=== PATIENT | female | born 1965 | race American Indian/Alaskan Native ===

== ENCOUNTER 2021-02-14 20:16 | Inpatient (IN) | payer BC ==
--- NOTE | 2021-02-14 20:22 | Emergency Department Report ---
ED General Adult HPI - General Stated complaint: CODE STEMI Time Seen by Provider: 02/14/21 20:21 - History of Present Illness Initial comments: Patient presented by EMS as both a code stroke and code STEMI. History is somewhat complicated. She had been last seen by family normal at 10 PM. Reportedly, they got up and went to work this morning. They allegedly checked on her and she was fine. She was not out of bed however. When they came home, she was found to have a left-sided weakness and dysarthria. She had left facial droop. This was allegedly at 11 AM. EMS got called [facility] to transport the patient here. During transport, they found her to have STEMI on EKG. She was not having any chest pain.Upon arrival, she does state that she has had a cough and congestion and has had "the flu" for 2 weeks. She did not get coronavirus testing done. She has had no known exposure to Covid however - Related Data Home Medications Medication Instructions Recorded Confirmed Last Taken Ferrous Gluconate [Fergon] 325 mg PO BID 10/21/14 10/24/14 10/24/14 325 mg metroNIDAZOLE/NS 500 MG/100 ML 500 mg PO BID 10/24/14 10/24/14 1 Day Ago ~10/23/14 Previous Rx's Medication Instructions Recorded Last Taken Type Naproxen Sodium (Nf) [Anaprox Ds 550 mg PO BID PRN #30 tablet 10/25/14 Unknown Rx (Nf)] Docusate Sodium [Colace] 100 mg PO DAILY PRN #30 capsule 10/29/14 Unknown Rx Ferrous Sulfate [Feosol 325 MG tab] 325 mg PO BID #90 tablet 10/29/14 Unknown Rx Ibuprofen [Motrin 800 MG tab] 800 mg PO TID PRN #30 tablet 10/29/14 Unknown Rx oxyCODONE /ACETAMINOPHEN [Percocet 1 - 2 tab PO Q4HR PRN #30 tablet 10/29/14 Unknown Rx 5/325 mg] Allergies Allergy/AdvReac Type Severity Reaction Status Date / Time No Known Allergies Allergy Unverified 10/16/13 19:26 ED Review of Systems ROS: Stated complaint: CODE STEMI Other details as noted in HPI Comment: All other systems reviewed and negative Constitutional: denies: fever Eyes: denies: eye pain ENT: denies: ear pain Respiratory: see HPI, cough Cardiovascular: as per HPI. denies: chest pain Gastrointestinal: denies: abdominal pain Genitourinary: denies: dysuria Musculoskeletal: denies: back pain Skin: denies: rash Neurological: as per HPI. denies: headache Hematological/Lymphatic: denies: easy bruising ED Past Medical Hx - Past Medical History Hx Hypertension: Yes (Cardiac clearance on chart) Hx Congestive Heart Failure: No Hx Diabetes: No Hx Liver Disease: No Hx Renal Disease: No Hx Asthma: No Hx COPD: No Additional medical history: uterine fibroids, Vaginal delivery x 4, 2 miscarriages - Family History Family history: hypertension - Social History Smoking Status: Never Smoker - Medications Home Medications: Home Medications Medication Instructions Recorded Confirmed Last Taken Type Ferrous Gluconate [Fergon] 325 mg PO BID 10/21/14 10/24/14 10/24/14 History 325 mg metroNIDAZOLE/NS 500 MG/100 ML 500 mg PO BID 10/24/14 10/24/14 1 Day Ago History ~10/23/14 Naproxen Sodium (Nf) [Anaprox Ds 550 mg PO BID PRN #30 tablet 10/25/14 Unknown Rx (Nf)] Docusate Sodium [Colace] 100 mg PO DAILY PRN #30 capsule 10/29/14 Unknown Rx Ferrous Sulfate [Feosol 325 MG tab] 325 mg PO BID #90 tablet 10/29/14 Unknown Rx Ibuprofen [Motrin 800 MG tab] 800 mg PO TID PRN #30 tablet 10/29/14 Unknown Rx oxyCODONE /ACETAMINOPHEN [Percocet 1 - 2 tab PO Q4HR PRN #30 tablet 10/29/14 Unknown Rx 5/325 mg] ED Physical Exam - General Limitations: No Limitations, Other ( pulse ox was normal based on EMS presentation.) General appearance: alert, in distress ( Mild) - Head Head exam: Present: atraumatic, other ( left facial droop) - Eye Eye exam: Present: normal appearance, EOMI. Absent: scleral icterus - ENT ENT exam: Present: normal exam, normal orophraynx, mucous membranes moist - Neck Neck exam: Present: normal inspection. Absent: meningismus - Respiratory Respiratory exam: Present: normal lung sounds bilaterally. Absent: respiratory distress - Cardiovascular Cardiovascular Exam: Present: regular rate, normal rhythm - GI/Abdominal GI/Abdominal exam: Present: soft, other ( obese). Absent: tenderness - Extremities Exam Extremities exam: Present: normal capillary refill. Absent: pedal edema - Back Exam Back exam: Absent: CVA tenderness (R), CVA tenderness (L) - Neurological Exam Neurological exam: Present: alert, oriented X3, other ( patient has left facial droop and left hemiparesis. There is mild dysarthria noted.) - Psychiatric Psychiatric exam: Present: normal affect, normal mood - Skin Skin exam: Present: warm, dry ED Course - Reevaluation(s) Reevaluation #1: 02/14/21 20:22 EMS met. Reevaluation #2: 02/14/21 20:31 Case was discussed with Dr. Shahid, cardiology. He requested CT evaluation of the brain prior to cath as this could also be a stroke or intracranial bleed creating problems and EKG changes. Case was discussed with neurology as a stroke alert. It was determined that the patient certainly would not meet criteria for TPA, but if she has a large vessel occlusion, that may warrant intervention. CT and CT angios have been ordered. Obviously, the complex nature of the EKG findings and neurologic findings will certainly alter door to intervention for both stroke and STEMI. Reevaluation #3: 02/14/21 21:21 Case ED Medical Decision Making - Lab Data Result diagrams: 02/14/21 20:21 02/14/21 20:21 - EKG Data -: EKG Interpreted by [facility] EKG shows normal: sinus rhythm, axis, intervals Rate: tachycardia - EKG Data Interpretation: acute UT 02/14/21 21:[address] segment elevation in 2, 3, aVF, V3 through V6. There is ST depression and 1 and aVL as well as V2. There is no ectopy noted. - Radiology Data Radiology results: report reviewed - Medical Decision Making Patient presented as both a cardiac and stroke alert. Cardiology was notified about the STEMI. Neurology was notified about the stroke. As the patient is outside of any kind of thrombolytic window for stroke, there will be no albert cation for TPA. There was no evidence of LVO based on CT as reported by the neurologist. Patient was taken urgently to the Senior Formulation Scientist. Hospitalist was notified who agrees to admit. Of note, patient did report a prodromal symptom with URI symptoms. She very well could have coronavirus. Critical Care Time: Yes Critical care attestation.: If time is entered above; I have spent that time in minutes in the direct care of this critically ill patient, excluding procedure time. critical care time is 45 minutes exclusive of all procedures. ED Disposition Clinical Impression: STEMI (ST elevation myocardial infarction), Acute right MCA stroke, Acute URI, Hyperglycemia Disposition: 09 ADMITTED INPATIENT Is pt being admited?: Yes Does the pt Need Aspirin: No Condition: Stable
[2021-02-14 20:31] LABS: Hematocrit 43.3 % (30.3-42.9); Hemoglobin 14.2 gm/dl (10.1-14.3); Mean Corpuscular HGB Conc 33 % (30-34); Mean Corpuscular Volume 78 fl (79-97); Platelet Count 214 K/mm3 (140-440); Red Blood Count 5.55 M/mm3 (3.65-5.03); Red Cell Distribution Width 16.3 % (13.2-15.2)
[2021-02-14 20:42] LABS: INR 1.3 (0.87-1.13); Partial Thromboplastin Time 25.3 Sec. (24.2-36.6)
--- NOTE | 2021-02-14 20:43 | XRay Report ---
CHEST 1 VIEW 02/14/2021 7:36 PM INDICATION / CLINICAL INFORMATION: stemi. COMPARISON: None available. FINDINGS: SUPPORT DEVICES: None. HEART / MEDIASTINUM: No significant abnormality. LUNGS / PLEURA: There are multiple scattered peripheral airspace opacities. No pneumothorax. ADDITIONAL FINDINGS: No significant additional findings. IMPRESSION: 1. Multiple scattered peripheral airspace opacities which can be seen with Covid pneumonia. Signer Name: Clifford Norton DO Signed: 02/14/2021 8:39 PM Workstation Name: [id number] [id number]
[2021-02-14 20:44] LABS: Calcium 9.7 mg/dL (8.4-10.2)
[2021-02-14] MEDS ORDERED: VERAPAMIL 5 MG/2 ML INJ ONE (20:50)
[2021-02-14] MEDS ORDERED: HEPARIN/NS 5000 UNIT/500ML 1,000 ML IR ONE (20:50)
[2021-02-14] MEDS ORDERED: fentaNYL 100 MCG/2 ML INJ ONE (20:50)
[2021-02-14] MEDS ORDERED: MIDAZOLAM 2 MG/2 ML INJ ONE (20:50)
[2021-02-14] MEDS ORDERED: LIDOCAINE (2%) 20 MG/1 ML VIAL 20 ML MDV INFILTRATI ONE (20:51)
[2021-02-14] MEDS ORDERED: NITROGLYCERIN SYRINGE 3 ML ONE (20:51)
--- NOTE | 2021-02-14 20:57 | Consultation ---
History of Present Illness History of present illness: [facility] Consult Note # Demographics Consult Type: Acute Stroke Level 2 (4.5-24 hrs) Patient Location: Emergency Room First Name: Fabiana Last Name: Daniela Date of : 1965 Age: 55 Gender: Female Facility: [facility] Time of Initial Page ( Time): 02/14/2021, 20:23 Time of Return Call ( Time): 02/14/2021, 20:24 # HPI History: 55 year-old female presents with left-sided weakness. She was last known normal this morning when her left home for work. She was later found with these symptoms around 11 AM. # Scores Time of exam and NIHSS ( Time): 02/14/2021, 20:47 Level of Consciousness 1a: [0] = Alert; keenly responsive LOC Questions 1b: [0] = Answers both questions correctly LOC Commands 1c: [0] = Performs both tasks correctly Best Gaze 2: [0] = Normal Visual 3: [0] = No visual loss Facial Palsy 4: [2] = Partial paralysis Motor Arm Left 5a: [0] = No drift Motor Arm Right 5b: [3] = No effort against gravity Motor Leg Left 6a: [0] = No drift Motor Leg Right 6b: [3] = No effort against gravity Limb Ataxia 7: [0] = Absent Sensory 8: [0] = Normal Best Language 9: [0] = No aphasia Dysarthria 10: [1] = [id number] dysarthria Extinction and Inattention 11: [0] = No abnormality NIHSS Total: 9 # Exam Vitals: vital signs reviewed # Data Head CT: subacute ischemic stroke CTA Head: no large vessel occlusion preliminarily reviewed by me, please refer to radiology read for official reading # Assessment Impression: Ischemic Stroke (Subacute) # Plan Thrombolytic/Intervention: NOT IV Thrombolysis or IA Intervention candidate Thrombolytic Exclusion: > 4.5 hours Intraarterial Exclusion: no large vessel occlusion (LVO) unfavorable imaging/hypodensity Labs: hemoglobin A1c lipid panel Imaging: (urgency: routine): MRI Brain without contrast Diagnostic Test: echo with bubble study Therapy/Evaluation: NPO until swallow evaluation PT/OT evaluation speech/swallow consultation Medication: aspirin 325 mg daily start statin with goal of LDL < 70 Other: permissive hypertension telemetry monitoring I have discussed my recommendations with the referring provider Disposition: admit Medications and Allergies Allergies Allergy/AdvReac Type Severity Reaction Status Date / Time No Known Allergies Allergy Unverified 10/16/13 19:26 Home Medications Medication Instructions Recorded Confirmed Last Taken Type Ferrous Gluconate [Fergon] 325 mg PO BID 10/21/14 10/24/14 10/24/14 History 325 mg metroNIDAZOLE/NS 500 MG/100 ML 500 mg PO BID 10/24/14 10/24/14 1 Day Ago History ~10/23/14 Naproxen Sodium (Nf) [Anaprox Ds 550 mg PO BID PRN #30 tablet 10/25/14 Unknown Rx (Nf)] Docusate Sodium [Colace] 100 mg PO DAILY PRN #30 capsule 10/29/14 Unknown Rx Ferrous Sulfate [Feosol 325 MG tab] 325 mg PO BID #90 tablet 10/29/14 Unknown Rx Ibuprofen [Motrin 800 MG tab] 800 mg PO TID PRN #30 tablet 10/29/14 Unknown Rx oxyCODONE /ACETAMINOPHEN [Percocet 1 - 2 tab PO Q4HR PRN #30 tablet 10/29/14 Unknown Rx 5/325 mg] Results - Laboratory Findings CBC and BMP: 02/14/21 20:21 02/14/21 20:21 Abnormal Lab Findings: Abnormal Labs 02/14/21 02/14/21 02/14/21 20:21 20:21 20:21 WBC 15.6 H RBC 5.55 H Hct 43.3 H MCV 78 L MCH 26 L RDW 16.3 H PT 16.7 H INR 1.30 H Sodium 131 L Potassium 5.1 H Chloride 88.4 L Carbon Dioxide 20 L BUN 34 H Creatinine 1.5 H Glucose 574 H* Troponin T 0.882 H*
[2021-02-14] MEDS ORDERED: SODIUM CHLORIDE 0.9% 1000 ML 1,000 ML ONE (20:58)
[2021-02-14 21:03] LABS: Chol/HDL Ratio 8.65 %; Thrombin Time 17.2 Sec. (15.1-19.6)
--- NOTE | 2021-02-14 21:04 | Cat Scan Report ---
CT head/brain wo con INDICATION / CLINICAL INFORMATION: 55 years Female; Stroke symptoms. TECHNIQUE: Routine CT head without contrast. All CT scans at this location are performed using CT dos e reduction for ALARA by means of automated exposure control. COMPARISON: None. FINDINGS: BRAIN / INTRACRANIAL CONTENTS: The motion degrades the image quality at. However, there is decreased attenuation along the posterior right frontal lobe extending along the subcortical region compatible with ischemic changes likely chronic though correlation would be needed given the history at. There i s otherwise mild cerebral white matter disease. There is no clear CT evidence of acute intracranial h emorrhage or significant mass effect. The ventricular system is within normal limits in size and conf iguration. ORBITS: No significant abnormality of visualized orbits. SINUSES / MASTOIDS: There is minimal opacification along the posterior left sphenoid sinus. CRANIOCERVICAL JUNCTION: No significant abnormality. ADDITIONAL FINDINGS: None. IMPRESSION: 1. The study is limited by motion. However, there is microvascular angiopathy including decreased att enuation along the posterior right frontal subcortical region as detailed above. 2. There is no clear CT evidence of acute intracranial hemorrhage. Signer Name: Mundo Ohara MD Signed: 02/14/2021 8:59 PM Workstation Name: [id number]
[2021-02-14] MEDS: HEPARIN 10,000 UNITS/10 ML VIAL ONE ×2 (21:07→21:21)
--- NOTE | 2021-02-14 21:12 | Cat Scan Report ---
CT angio head INDICATION / CLINICAL INFORMATION: 55 years Female; stroke sx. TECHNIQUE: Thin cut axial images obtained through the head during IV bolus contrast administration. S agittal, coronal, and 3 plane MIP reconstructions performed by the technologist. NASCET type criteria used evaluate stenoses. Automated exposure control utilized for radiation reduction purposes. COMPARISON: None available. FINDINGS: INTERNAL CAROTID ARTERIES: The motion and beam hardening degrade the image quality at. However, there is no clear CTA evidence of significant focal stenosis involving distal internal carotid arteries by NASCET criteria. VERTEBROBASILAR SYSTEM: The vertebrobasilar system also appears to demonstrate appropriate caliber wi thout significant focal stenosis at. CEREBRAL ARTERIES: There is area of decreased attenuation along the posterior right frontal region ex tending to the subcortical white matter. This finding would be a most consistent with infarcts of ind eterminate age and correlation would be needed given the history of unspecified "stroke symptoms". Th ere is no clear evidence of significant focal stenosis involving more proximal right MCA branches at. The proximal anterior and posterior cerebral arteries also appear to demonstrate appropriate caliber without significant focal stenosis. ANEURYSM: None identified. ADDITIONAL FINDINGS: Remainder of the surrounding soft tissues are grossly normal. IMPRESSION: There is decreased attenuation along the posterior right frontal lobe as detailed above with some [place] of enhancing vessels within this region. However, there is no clear CTA evidence of significant stenosis involving more proximal cerebral branches, particularly the proximal right MCA. Signer Name: Mundo Ohara MD Signed: 02/14/2021 9:07 PM Workstation Name: [id number]
[2021-02-14] MEDS ORDERED: HEPARIN/NS 5000 UNIT/500ML 500 ML IR ONE (21:25)
--- NOTE | 2021-02-14 21:30 | Cat Scan Report ---
CT angio neck INDICATION / CLINICAL INFORMATION: 55 years Female; stroke sx. TECHNIQUE: Thin cut axial images obtained through the head during IV bolus contrast administration. S agittal, coronal, and 3 plane MIP reconstructions performed by the technologist. NASCET type criteria used evaluate stenoses. All CT scans at this location are performed using CT dose reduction for ALAR A by means of automated exposure control. COMPARISON: None available. FINDINGS: CAROTID ARTERIES: The motion and beam hardening significantly degrades the image quality at. However, there appears be mild atherosclerotic calcification involving proximal internal carotid arteries dara aterally without clear CTA evidence of significant stenosis by NASCET to criteria. VERTEBRAL ARTERIES: The visualized vertebral arteries also appear to demonstrate appropriate caliber without significant focal stenosis. ARCH: There is no significant narrowing involving origins of the arch of vessels at. ADDITIONAL FINDINGS: There is scattered groundglass opacification involving the visualized upper lung s which is nonspecific and correlation would be needed. There is mild to moderate heterogeneous promi nence of the left lobe of thyroid gland which is also nonspecific and correlation be needed regarding goiter. There is mild deviation of the trachea towards the right. Follow-up Thyroid ultrasound may b e considered to further characterize this finding. IMPRESSION: The study is limited by motion. However, this mild atherosclerotic calcification involving proximal i nternal carotid arteries bilaterally without significant stenosis by NASCET criteria. The initial study was incomplete resulting in some delay in the dictation of this exam. Signer Name: Mundo Ohara MD Signed: 02/14/2021 9:26 PM Workstation Name: [id number]
[2021-02-14] MEDS ORDERED: ALUM-MAG HYDROXIDE-SIMETHICONE 200-200-20MG/5ML ORAL LIQD 30 ML ONE (21:43)
[2021-02-14] MEDS ORDERED: CLOPIDOGREL 300 MG TAB ONE (21:43)
[2021-02-14 21:53] LABS: Hypochromasia 1+; Platelet Estimate Consistent w Auto; Total Cells Counted 100
[2021-02-14 21:54] LABS: Anisocytosis Few
[2021-02-14] MEDS ORDERED: DEXTROSE 50% IN WATER (25GM) 50 ML SYRINGE IV PRN (21:54)
[2021-02-14] MEDS ORDERED: ACETAMINOPHEN 325 MG TAB PO PRN (21:54)
[2021-02-14] MEDS ORDERED: ALBUTEROL 2.5 MG/3 ML NEBU IH PRN (21:54)
[2021-02-14] MEDS ORDERED: SODIUM CHLORIDE 0.9% 1000 ML 1,000 ML IV SCH (22:00)
[2021-02-14] MEDS ORDERED: SODIUM CHLORIDE 0.45% 1000 ML 1,000 ML IV SCH (22:00)
--- NOTE | 2021-02-14 22:08 | Consultation ---
History of Present Illness Consult date: 02/14/21 Requesting physician: SIDRA ARCOS Consult reason: other (Abnormal EKG) History of present illness: Patient is a very poor historian. Apparently patient had some slurred speech last night. She went to sleep and continued to have worsening symptoms also associated left arm numbness. Family noticed that she was sleeping this morning but did not notice anything unusual. Apparently when they came back at 11 AM they found that she had a facial droop and worsening dysarthria and left-sided weakness. They however still did not seek medical help and waited until this evening when her symptoms got worse. display maker were called and EMT noticed a markedly abnormal EKG suggesting of inferior ST elevation CT. Code STEMI was activated. Patient however reports no chest pain she does report shortness of breath. Apparently has been having flulike symptoms for the past week or so. Unfortunately patient had no family do not believe in vaccination have not vaccinated for Covid. Patient had an emergency CT scan to rule out hemorrhage. CT scan is negative. Patient was taken to the Chemical Tester and noted to have thrombus of the mid distal right coronary artery. She is status post PCI of the RCA and is doing better. She is being admitted to the ICU for further work-up. Past History Past Medical History: diabetes Past Surgical History: No surgical history Social history: no significant social history Family history: no significant family history Medications and Allergies Allergies Allergy/AdvReac Type Severity Reaction Status Date / Time No Known Allergies Allergy Verified 02/14/21 21:43 Home Medications Medication Instructions Recorded Confirmed Last Taken Type Ferrous Gluconate [Fergon] 325 mg PO BID 10/21/14 10/24/14 10/24/14 History 325 mg metroNIDAZOLE/NS 500 MG/100 ML 500 mg PO BID 10/24/14 10/24/14 1 Day Ago History ~10/23/14 Naproxen Sodium (Nf) [Anaprox Ds 550 mg PO BID PRN #30 tablet 10/25/14 Unknown Rx (Nf)] Docusate Sodium [Colace] 100 mg PO DAILY PRN #30 capsule 10/29/14 Unknown Rx Ferrous Sulfate [Feosol 325 MG tab] 325 mg PO BID #90 tablet 10/29/14 Unknown Rx Ibuprofen [Motrin 800 MG tab] 800 mg PO TID PRN #30 tablet 10/29/14 Unknown Rx oxyCODONE /ACETAMINOPHEN [Percocet 1 - 2 tab PO Q4HR PRN #30 tablet 10/29/14 Unknown Rx 5/325 mg] Active Meds: Active Medications Acetaminophen (Acetaminophen 325 Mg Tab) 650 mg PO Q4H PRN PRN Reason: Pain MILD(1-3)/Fever >100.5/BEEBE Hydrocodone Bitart/Acetaminophen (Hydrocodone/Acetaminophen 5-325 Mg Tab) 1 each PO Q6H PRN PRN Reason: Pain, Moderate (4-6) Albuterol (Albuterol 2.5 Mg/3 Ml Nebu) 2.5 mg IH Q4HRT PRN PRN Reason: Shortness Of Breath Albuterol/Ipratropium (Ipratropium/Albuterol Sulfate 3 Ml Ampul.Neb) 1 ampul IH Q6HRT KARYN Aspirin (Aspirin 81 Mg Tab Chew) 81 mg PO QDAY KARYN Aspirin (Aspirin 81 Mg Tab Chew) 81 mg PO QDAY KARYN Atorvastatin Calcium (Atorvastatin 40 Mg Tab) 40 mg PO QHS KARYN Atorvastatin Calcium (Atorvastatin 40 Mg Tab) 80 mg PO QHS KARYN Clopidogrel Bisulfate (Clopidogrel 75 Mg Tab) 75 mg PO QDAY KARYN Dextrose (Dextrose 50% In Water (25gm) 50 Ml Syringe) 50 ml IV Q30MIN PRN; Protocol PRN Reason: Hypoglycemia Famotidine (Famotidine 20 Mg/2 Ml Inj) 20 mg IV BID KARYN Hydromorphone HCl (Hydromorphone 1 Mg/1 Ml Inj) 0.5 mg IV Q3H PRN PRN Reason: Pain , Severe (7-10) Sodium Chloride (Nacl 0.45% 1000 Ml) 1,000 mls @ 150 mls/hr IV DIRECT KARYN Sodium Chloride (Nacl 0.9% 1000 Ml) 1,000 mls @ 100 mls/hr IV DIRECT KARYN Insulin Human Lispro (Insulin Lispro 100 Unit/Ml) 0 unit SUB-Q Q6HR KARYN; Protocol Metoprolol Tartrate (Metoprolol Tartrate 50 Mg Tab) 50 mg PO BID KARYN Morphine Sulfate (Morphine 2 Mg/1 Ml Inj) 2 mg IV Q4H PRN PRN Reason: Pain, Moderate (4-6) Ondansetron HCl (Ondansetron 4 Mg/2 Ml Inj) 4 mg IV Q8H PRN PRN Reason: Nausea And Vomiting Pantoprazole Sodium (Pantoprazole 40 Mg Tab) 40 mg PO DAILY ONE Stop: 02/14/21 22:02 Sodium Chloride (Sodium Chloride 0.9% 10 Ml Flush Syringe) 10 ml IV BID KARYN Sodium Chloride (Sodium Chloride 0.9% 10 Ml Flush Syringe) 10 ml IV PRN PRN PRN Reason: LINE FLUSH Sodium Chloride (Sodium Chloride 0.9% 10 Ml Flush Syringe) 10 ml INJ PRN PRN PRN Reason: LINE FLUSH Review of Systems All systems: negative (As mentioned in the H&P) Physical Examination Vital Signs Temp Pulse Resp BP Pulse Ox 97.7 F 114 H 23 154/98 100 02/14/21 20:16 02/14/21 20:16 02/14/21 20:16 02/14/21 20:16 02/14/21 20:16 General appearance: obese HEENT: Positive: Normocephaly Neck: Positive: trachea midline Cardiac: Positive: Tachycardia Lungs: Positive: clear to auscultation Neuro: Positive: Grossly Intact Abdomen: Positive: Unremarkable Extremities: Present: normal Results 02/14/21 20:21 02/14/21 20:21 Coagulation 02/14/21 Range/Units 20: PT 16.7 H (12.2-14.9) Sec. INR 1.30 H (0.87-1.13) APTT 25.3 (24.2-36.6) Sec. Lipids 02/14/21 Range/Units 20:21 Triglycerides 292 H (2-149) mg/dL Cholesterol 199 (50-199) mg/dL HDL Cholesterol 23 L (40-59) mg/dL Cholesterol/HDL Ratio 8.65 % CBC 02/14/21 Range/Units 20:21 WBC 15.6 H (4.5-11.0) K/mm3 RBC 5.55 H (3.65-5.03) M/mm3 Hgb 14.2 (10.1-14.3) gm/dl Hct 43.3 H (30.3-42.9) % Plt Count 214 (140-440) K/mm3 Comprehensive Metabolic Panel 02/14/21 Range/Units 20:21 Sodium 131 L (137-145) mmol/L Potassium 5.1 H (3.6-5.0) mmol/L Chloride 88.4 L (98-107) mmol/L Carbon Dioxide 20 L (22-30) mmol/L BUN 34 H (7-17) mg/dL Creatinine 1.5 H (0.6-1.2) mg/dL Glucose 574 H* (65-100) mg/dL Calcium 9.7 (8.4-10.2) mg/dL EKG interpretations - Telemetry EKG Rhythm: Sinus Rhythm (Inferolateral ST elevation CT) Assessment and Plan Impression 1. Acute inferior ST elevation CT 2. 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 Acute CVA 4. Morbid obesity 5. Hypertension 6. Uncontrolled diabetes mellitus 7. Acute renal failure 8. Leukocytosis Plan 1. Aspirin Plavix statins beta-blockers 2. Neurology consult to see if patient can be on IV heparin 3. Permissive hypertension management per neurology 4. Routine pharmacotherapy post PCI 5. 2D echo 6. Covid testing in view of the flulike symptoms, unvaccinated status and now with inferior ST elevation CT secondary to right coronary artery thrombus and simultaneous CVA. 7. Prognosis guarded
--- NOTE | 2021-02-14 22:10 | History and Physical Report ---
History of Present Illness Date of examination: 02/14/21 Date of admission: 02/14/21 Chief complaint: Code STEMI Severe History of present illness: 55 years old female with history of diabetes was brought to the emergency room by EMS as both a code stroke and code STEMI. History is somewhat complicated. She had been last seen by family normal at 10 PM last night. Reportedly, they got up and went to work this morning. They allegedly checked on her and she was fine. She was not out of bed however. When they came home, she was found to have a left-sided weakness and dysarthria. She had left facial droop. This was allegedly at 11 AM. EMS got called [facility] to transport the patient here. During transport, they found her to have STEMI on EKG. She was not having any chest pain.Upon arrival, she does state that she has had a cough and congestion and has had "the flu" for 2 weeks. She did not get coronavirus testing done. She has had no known exposure to Covid . In the emergency room patient is found to have code STEMI subsequently patient was brought to the [facility] and patient is a status post heart cath with stent placement in the RCA. Cardiology will put post-cath orders. Case discussed with Dr. Shahid. In the emergency room patient also seen and evaluated by tele neurology. Patient is out of window of TPA. We are going to admit the patient to the ICU. will consult cardiology, neurology and critical care for evaluation. Patient Covid status is unknown we are going to order Covid PCR Med rec is done. Advance discharge planning is initiated Past History Past Medical History: diabetes Medications and Allergies Allergies Allergy/AdvReac Type Severity Reaction Status Date / Time No Known Allergies Allergy Verified 02/14/21 21:43 Home Medications Medication Instructions Recorded Confirmed Last Taken Type Ferrous Gluconate [Fergon] 325 mg PO BID 10/21/14 10/24/14 10/24/14 History 325 mg metroNIDAZOLE/NS 500 MG/100 ML 500 mg PO BID 10/24/14 10/24/14 1 Day Ago History ~10/23/14 Naproxen Sodium (Nf) [Anaprox Ds 550 mg PO BID PRN #30 tablet 10/25/14 Unknown Rx (Nf)] Docusate Sodium [Colace] 100 mg PO DAILY PRN #30 capsule 06/05/15 Unknown Rx Ferrous Sulfate [Feosol 325 MG tab] 325 mg PO BID #90 tablet 10/29/14 Unknown Rx Ibuprofen [Motrin 800 MG tab] 800 mg PO TID PRN #30 tablet 10/29/14 Unknown Rx oxyCODONE /ACETAMINOPHEN [Percocet 1 - 2 tab PO Q4HR PRN #30 tablet 10/29/14 Unknown Rx 5/325 mg] Active Meds: Active Medications Acetaminophen (Acetaminophen 325 Mg Tab) 650 mg PO Q4H PRN PRN Reason: Pain MILD(1-3)/Fever >100.5/BEEBE Hydrocodone Bitart/Acetaminophen (Hydrocodone/Acetaminophen 5-325 Mg Tab) 1 each PO Q6H PRN PRN Reason: Pain, Moderate (4-6) Albuterol (Albuterol 2.5 Mg/3 Ml Nebu) 2.5 mg IH Q4HRT PRN PRN Reason: Shortness Of Breath Albuterol/Ipratropium (Ipratropium/Albuterol Sulfate 3 Ml Ampul.Neb) 1 ampul IH Q6HRT KARYN Aspirin (Aspirin 81 Mg Tab Chew) 81 mg PO QDAY KARYN Aspirin (Aspirin 81 Mg Tab Chew) 81 mg PO QDAY KARYN Atorvastatin Calcium (Atorvastatin 40 Mg Tab) 40 mg PO QHS KARYN Atorvastatin Calcium (Atorvastatin 40 Mg Tab) 80 mg PO QHS KARYN Clopidogrel Bisulfate (Clopidogrel 75 Mg Tab) 75 mg PO QDAY KARYN Dextrose (Dextrose 50% In Water (25gm) 50 Ml Syringe) 50 ml IV Q30MIN PRN; Pr otocol PRN Reason: Hypoglycemia Docusate Sodium (Docusate Sodium 100 Mg Cap) 100 mg PO DAILY PRN PRN Reason: Constip unreliev by MOM/or NPO Famotidine (Famotidine 20 Mg/2 Ml Inj) 20 mg IV BID KARYN Ferrous Gluconate (Ferrous Gluconate 324 Mg Tab) 325 mg PO BID KARYN Hydromorphone HCl (Hydromorphone 1 Mg/1 Ml Inj) 0.5 mg IV Q3H PRN PRN Reason: Pain , Severe (7-10) Sodium Chloride (Nacl 0.45% 1000 Ml) 1,000 mls @ 150 mls/hr IV DIRECT KARYN Sodium Chloride (Nacl 0.9% 1000 Ml) 1,000 mls @ 100 mls/hr IV DIRECT KARYN Insulin Human Lispro (Insulin Lispro 100 Unit/Ml) 0 unit SUB-Q Q6HR KARYN; Pr otocol Metoprolol Tartrate (Metoprolol Tartrate 50 Mg Tab) 50 mg PO BID KARYN Miscellaneous Medication (Metronidazole/Ns 500 Mg/100 Ml) 500 mg PO BID KARYN Morphine Sulfate (Morphine 2 Mg/1 Ml Inj) 2 mg IV Q4H PRN PRN Reason: Pain, Moderate (4-6) Ondansetron HCl (Ondansetron 4 Mg/2 Ml Inj) 4 mg IV Q8H PRN PRN Reason: Nausea And Vomiting Pantoprazole Sodium (Pantoprazole 40 Mg Tab) 40 mg PO DAILY ONE Stop: 02/14/21 22:02 Sodium Chloride (Sodium Chloride 0.9% 10 Ml Flush Syringe) 10 ml IV BID KARYN Sodium Chloride (Sodium Chloride 0.9% 10 Ml Flush Syringe) 10 ml IV PRN PRN PRN Reason: LINE FLUSH Sodium Chloride (Sodium Chloride 0.9% 10 Ml Flush Syringe) 10 ml INJ PRN PRN PRN Reason: LINE FLUSH Review of Systems All systems: negative Constitutional: lethargy, other (Left-sided weakness) Neurological: other (Left-sided weakness and dysarthria) Exam - Constitutional Vitals: Temp Pulse Resp BP Pulse Ox 97.7 F 114 H 23 154/98 100 02/14/21 20:16 02/14/21 20:17 02/14/21 20:16 02/14/21 20:16 02/14/21 20:16 General appearance: Present: mild distress, well-nourished - EENT Eyes: Present: PERRL ENT: hearing intact, clear oral mucosa - Neck Neck: Present: supple, normal ROM - Respiratory Respiratory effort: normal Respiratory: bilateral: diminished - Cardiovascular Heart Sounds: Present: S1 & S2. Absent: rub, click - Extremities Extremities: pulses symmetrical, No edema Peripheral Pulses: within normal limits - Abdominal General gastrointestinal: Present: soft, non-tender, non-distended, normal bowel sounds Female genitourinary: Present: normal - Integumentary Integumentary: Present: clear, warm, dry - Musculoskeletal Musculoskeletal: gait normal, strength equal bilaterally - Psychiatric Psychiatric: other (Lethargy) - Neurologic Neurologic: CNII-XII intact, other (Left-sided weakness and dysarthria) HEART Score - HEART Score Troponin: Troponin T 0.882 ng/mL (0.00-0.029) H* 02/14/21 20:21 Results - Labs CBC & Chem 7: 02/14/21 20:21 02/14/21 20:21 Labs: Laboratory Last Values WBC 15.6 K/mm3 (4.5-11.0) H 02/14/21 20:21 RBC 5.55 M/mm3 (3.65-5.03) H 02/14/21 20:21 Hgb 14.2 gm/dl (10.1-14.3) 02/14/21 20:21 Hct 43.3 % (30.3-42.9) H 02/14/21 20:21 MCV 78 fl (79-97) L 02/14/21 20:21 MCH 26 pg (28-32) L 02/14/21 20:21 MCHC 33 % (30-34) 02/14/21 20:21 RDW 16.3 % (13.2-15.2) H 02/14/21 20:21 Plt Count 214 K/mm3 (140-440) 02/14/21 20:21 Add Manual Diff Complete 02/14/21 20:21 Total Counted 100 02/14/21 20: Seg Neutrophils % Dough Puncher 02/14/21 20: Seg Neuts % (Manual) 96.0 % (40.0-70.0) H 02/14/21 20:21 Lymphocytes % (Manual) 3.0 % (13.4-35.0) L 02/14/21 20:21 Monocytes % (Manual) 1.0 % (0.0-7.3) 02/14/21 20:21 Nucleated RBC % Not Reportable 02/14/21 20: Seg Neutrophils # Man 15.0 K/mm3 (1.8-7.7) H 02/14/21 20:21 Band Neutrophils # 0.0 K/mm3 02/14/21 20:21 Lymphocytes # (Manual) 0.5 K/mm3 (1.2-5.4) L 02/14/21 20:21 Abs React Lymphs (Man) 0.0 K/mm3 02/14/21 20:21 Monocytes # (Manual) 0.2 K/mm3 (0.0-0.8) 02/14/21 20:21 Eosinophils # (Manual) 0.0 K/mm3 (0.0-0.4) 02/14/21 20:21 Basophils # (Manual) 0.0 K/mm3 (0.0-0.1) 02/14/21 20:21 Metamyelocytes # 0.0 K/mm3 02/14/21 20:21 Myelocytes # 0.0 K/mm3 02/14/21 20:21 Promyelocytes # 0.0 K/mm3 02/14/21 20:21 Blast Cells # 0.0 K/mm3 02/14/21 20:21 WBC Morphology Not Reportable 02/14/21 20:21 Hypersegmented Neuts Not Reportable 02/14/21 20:21 Hyposegmented Neuts Not Reportable 02/14/21 20:21 Hypogranular Neuts Not Reportable 02/14/21 20:21 Smudge Cells Not Reportable 02/14/21 20:21 Toxic Granulation Not Reportable 02/14/21 20:21 Toxic Vacuolation Not Reportable 02/14/21 20:21 Dohle Bodies Not Reportable 02/14/21 20:21 Pelger-Huet Anomaly Not Reportable 02/14/21 20:21 Aba Rods Not Reportable 02/14/21 20:21 Platelet Estimate Consistent w auto 02/14/21 20:21 Clumped Platelets Not Reportable 02/14/21 20:21 Plt Clumps, EDTA Not Reportable 02/14/21 20:21 Large Platelets Not Reportable 02/14/21 20:21 Giant Platelets Not Reportable 02/14/21 20:21 Platelet Satelliting Not Reportable 02/14/21 20:21 Plt Morphology Comment Not Reportable 02/14/21 20:21 RBC Morphology Not Reportable 02/14/21 20:21 Dimorphic RBCs Not Reportable 02/14/21 20:21 Polychromasia Not Reportable 02/14/21 20:21 Hypochromasia 1+ 02/14/21 20:21 Poikilocytosis Not Reportable 02/14/21 20:21 Anisocytosis Few 02/14/21 20:21 Microcytosis Not Reportable 02/14/21 20:21 Macrocytosis Not Reportable 02/14/21 20:21 Spherocytes Not Reportable 02/14/21 20:21 Pappenheimer Bodies Not Reportable 02/14/21 20:21 Sickle Cells Not Reportable 02/14/21 20:21 Target Cells Not Reportable 02/14/21 20:21 Tear Drop Cells Not Reportable 02/14/21 20:21 Ovalocytes Not Reportable 02/14/21 20:21 Helmet Cells Not Reportable 02/14/21 20:21 [place] Bodies Not Reportable 02/14/21 20:21 [place] Rings Not Reportable 02/14/21 20:21 Santana Cells Not Reportable 02/14/21 20:21 Bite Cells Not Reportable 02/14/21 20:21 Crenated Cell Not Reportable 02/14/21 20:21 Elliptocytes Not Reportable 02/14/21 20:21 Acanthocytes (Spur) Not Reportable 02/14/21 20:21 Rouleaux Not Reportable 02/14/21 20:21 Hemoglobin C Crystals Not Reportable 02/14/21 20:21 Schistocytes Not Reportable 02/14/21 20:21 Malaria parasites Not Reportable 02/14/21 20:21 Alberto Bodies Not Reportable 02/14/21 20:21 Hem Pathologist Commnt No 02/14/21 20:21 PT 16.7 Sec. (12.2-14.9) H 02/14/21 20:21 INR 1.30 (0.87-1.13) H 02/14/21 20:21 APTT 25.3 Sec. (24.2-36.6) 02/14/21 20:21 Thrombin Time 17.2 Sec. (15.1-19.6) 02/14/21 20:21 Sodium 131 mmol/L (137-145) L 02/14/21 20:21 Potassium 5.1 mmol/L (3.6-5.0) H 02/14/21 20:21 Chloride 88.4 mmol/L (98-107) L 02/14/21 20:21 Carbon Dioxide 20 mmol/L (22-30) L 02/14/21 20:21 Anion Gap 28 mmol/L 02/14/21 20:21 BUN 34 mg/dL (7-17) H 02/14/21 20:21 Creatinine 1.5 mg/dL (0.6-1.2) H 02/14/21 20:21 Estimated GFR 43 ml/min 02/14/21 20:21 BUN/Creatinine Ratio 23 % 02/14/21 20:21 Glucose 574 mg/dL (65-100) H* 02/14/21 20:21 POC Glucose 562 mg/dL (70-105) H 02/14/21 20:21 Calcium 9.7 mg/dL (8.4-10.2) 02/14/21 20: Troponin T 0.882 ng/mL (0.00-0.029) H* 02/14/21 20:21 Triglycerides 292 mg/dL (2-149) H 02/14/21 20: Cholesterol 199 mg/dL (50-199) 02/14/21 20: LDL Cholesterol Direct 105 mg/dL (50-130) 02/14/21 20: HDL Cholesterol 23 mg/dL (40-59) L 02/14/21 20: Cholesterol/HDL Ratio 8.65 % 02/14/21 20: Blood Type A POSITIVE 02/14/21 20: Antibody Screen Negative 02/14/21 20:21 - Imaging and Cardiology CT Scan - head: report reviewed Assessment and Plan VTE prophylaxis?: Chemical Plan of care discussed with patient/family: Yes - Patient Problems (1) STEMI (ST elevation myocardial infarction) Status: Acute Plan to address problem: Admit the patient to the ICU. Aspirin 81 mg p.o. daily. Plavix 75 mg p.o. daily. Lipitor 80 mg p.o. daily. Patient is status post heart cath with drug- eluting stent on ICA. Cardiology evaluation. Echocardiogram. Heparin 5000 units subcu every 8 hours critical care evaluation. (2) Acute right MCA stroke Status: Acute Plan to address problem: Patient is seen and evaluated by telemetry neurology. We will put the patient on aspirin 81 mg p.o. daily, Plavix 75 mg p.o. daily as per cardiology recommendation. Lipitor 80 mg p.o. daily. MRI of the brain and MRA of the brain and neck with and without contrast. Echocardiogram, PT OT any speech evaluation, neurology consultation. Prognosis is guarded (3) Acute URI Status: Acute Plan to address problem: We will send the FPSI PCR test. Rocephin 2 g IV daily and Zithromax to 50 mg p.o. daily. We do the blood cultures sputum culture will recheck CBC BMP in the morning. Follow the Covid PCR and Covid inflammatory marker. (4) Diabetes Status: Acute Plan to address problem: N.p.o. Normal saline at the rate of 100 cc/h. Humalog sliding scale Accu-Chek every 6 hours with moderate dose coverage. Diabetic education (5) DVT prophylaxis Status: Acute Plan to address problem: Heparin 5000 units subcu every 8 hours for DVT prophylaxis. Pepcid 20 mg IV every 12 hours for GI prophylaxis. Patient is a full code. His prognosis is guarded
[2021-02-14] MEDS ORDERED: PANTOPRAZOLE 40 MG TAB PO ONE (23:01)
[2021-02-15] MEDS: FAMOTIDINE 20 MG/2 ML INJ IV SCH ×3 (01:00→22:19)
[2021-02-15] MEDS: INSULIN LISPRO 100 UNIT/ML SUB-Q SCH ×4 (01:00→18:03)
[2021-02-15] MEDS: cefTRIAXone/NS 2 GM/100 ML 2 GM/100 ML BAG IV SCH ×2 (01:00→10:26)
[2021-02-15] MEDS: METOPROLOL TARTRATE 50 MG TAB PO SCH ×3 (01:00→23:56)
[2021-02-15 04:30] LABS: Basophils % (Auto) 0.1 % (0.0-1.8); Eosinophils # (Auto) 0.1 K/mm3 (0.0-0.4); Eosinophils % (Auto) 0.5 % (0.0-4.3); Hemoglobin 13.2 gm/dl (10.1-14.3); Lymphocytes # (Auto) 0.5 K/mm3 (1.2-5.4); Lymphocytes % (Auto) 4.9 % (13.4-35.0); Mean Corpuscular HGB Conc 33 % (30-34); Mean Corpuscular Volume 77 fl (79-97); Monocytes # (Auto) 0.5 K/mm3 (0.0-0.8); Monocytes % (Auto) 5.3 % (0.0-7.3); Platelet Count 172 K/mm3 (140-440); Red Blood Count 5.17 M/mm3 (3.65-5.03); Red Cell Distribution Width 15.8 % (13.2-15.2)
[2021-02-15 04:53] LABS: Calcium 8.8 mg/dL (8.4-10.2)
--- NOTE | 2021-02-15 06:28 | XRay Report ---
XR chest 1V ap INDICATION / CLINICAL INFORMATION: post pci. COMPARISON: Radiograph from yesterday. FINDINGS: SUPPORT DEVICES: None. HEART /PULMONARY VASCULATURE: Unchanged. LUNGS / PLEURA: Bibasilar pulmonary opacities are unchanged, may reflect edema or infiltrate. No pneu mothorax. IMPRESSION: 1. No significant interval change. Signer Name: Chang Gleason MD Signed: 02/15/2021 6:23 AM Workstation Name: [id number]
[2021-02-15] MEDS: HEPARIN 5,000 UNIT/1 ML VIAL SUB-Q SCH ×2 (06:56→13:00)
--- NOTE | 2021-02-15 07:55 | Consultation ---
History of Present Illness Consult date: 02/15/21 Reason for Consult: Acute Inf. [place] and possible CVA History of present illness: Code STEMI Severe History of present illness: 55 years old female with history of diabetes was brought to the emergency room by EMS as both a code stroke and code STEMI. History is somewhat complicated. She had been last seen by family normal at 10 PM last night. Reportedly, they got up and went to work this morning. They allegedly checked on her and she was fine. She was not out of bed however. When they came home, she was found to have a left-sided weakness and dysarthria. She had left facial droop. This was allegedly at 11 AM. EMS got called [facility] to transport the patient here. During transport, they found her to have STEMI on EKG. She was not having any chest pain.Upon arrival, she does state that she has had a cough and congestion and has had "the flu" for 2 weeks. She did not get coronavirus testing done. S he has had no known exposure to Covid . In the emergency room patient is found to have code STEMI subsequently patient was brought to the [facility] and patient is a status post heart cath with stent p lacement in the RCA. Cardiology will put post-cath orders. Case discussed with Dr. Shahid. In the emergency room patient also seen and evaluated by tele neurology. Patient is out of window of TPA. We are going to admit the patient to the ICU. will consult cardiology, neurology and critical care for evaluation. Patient Covid status is unknown we are going to order Covid PCR Underwent evaluation by cardiology and ID Med rec is done. Advance discharge planning is initiated Past History Past Medical History: diabetes Medications and Allergies Allergies Allergy/AdvReac Type Severity Reaction Status Date / Time No Known Allergies Allergy Verified 02/14/21 21:43 Home Medications Medication Instructions Recorded Confirmed Last Taken Type Ferrous Gluconate [Fergon] 325 mg PO BID 10/21/14 10/24/14 10/24/14 History 325 mg metroNIDAZOLE/NS 500 MG/100 ML 500 mg PO BID 10/24/14 10/24/14 1 Day Ago History ~10/23/14 Naproxen Sodium (Nf) [Anaprox Ds 550 mg PO BID PRN #30 tablet 10/25/14 Unknown Rx (Nf)] Docusate Sodium [Colace] 100 mg PO DAILY PRN #30 capsule 10/29/14 Unknown Rx Ferrous Sulfate [Feosol 325 MG tab] 325 mg PO BID #90 tablet 10/29/14 Unknown Rx Ibuprofen [Motrin 800 MG tab] 800 mg PO TID PRN #30 tablet 10/29/14 Unknown Rx oxyCODONE /ACETAMINOPHEN [Percocet 1 - 2 tab PO Q4HR PRN #30 tablet 10/29/14 Unknown Rx 5/325 mg] Active Meds: Active Medications Acetaminophen (Acetaminophen 325 Mg Tab) 650 mg PO Q4H PRN PRN Reason: Pain MILD(1-3)/Fever >100.5/BEEBE Hydrocodone Bitart/Acetaminophen (Hydrocodone/Acetaminophen 5-325 Mg Tab) 1 each PO Q6H PRN PRN Reason: Pain, Moderate (4-6) Albuterol (Albuterol 2.5 Mg/3 Ml Nebu) 2.5 mg IH Q4HRT PRN PRN Reason: Shortness Of Breath Albuterol/Ipratropium (Ipratropium/Albuterol Sulfate 3 Ml Ampul.Neb) 1 ampul IH Q6HRT [facility] Aspirin (Aspirin 81 Mg Tab Chew) 81 mg PO QDAY [facility] Aspirin (Aspirin 81 Mg Tab Chew) 81 mg PO QDAY [facility] Atorvastatin Calcium (Atorvastatin 40 Mg Tab) 40 mg PO QHS [facility] Atorvastatin Calcium (Atorvastatin 40 Mg Tab) 80 mg PO QHS [facility] Clopidogrel Bisulfate (Clopidogrel 75 Mg Tab) 75 mg PO QDAY [facility] Dextrose (Dextrose 50% In Water (25gm) 50 Ml Syringe) 50 ml IV Q30MIN PRN; Protocol PRN Reason: Hypoglycemia Docusate Sodium (Docusate Sodium 100 Mg Cap) 100 mg PO DAILY PRN PRN Reason: Constip unreliev by MOM/or NPO Famotidine (Famotidine 20 Mg/2 Ml Inj) 20 mg IV BID [facility] Ferrous Gluconate (Ferrous Gluconate 324 Mg Tab) 325 mg PO BID [facility] Hydromorphone HCl (Hydromorphone 1 Mg/1 Ml Inj) 0.5 mg IV Q3H PRN PRN Reason: Pain , Severe (7-10) Sodium Chloride (Nacl 0.45% 1000 Ml) 1,000 mls @ 150 mls/hr IV DIRECT K[facility] Sodium Chloride (Nacl 0.9% 1000 Ml) 1,000 mls @ 100 mls/hr IV DIRECT [facility] Insulin Human Lispro (Insulin Lispro 100 Unit/Ml) 0 unit SUB-Q Q6HR [facility]; Protocol Metoprolol Tartrate (Metoprolol Tartrate 50 Mg Tab) 50 mg PO BID [facility] Miscellaneous Medication (Metronidazole/Ns 500 Mg/100 Ml) 500 mg PO BID [facility] Morphine Sulfate (Morphine 2 Mg/1 Ml Inj) 2 mg IV Q4H PRN PRN Reason: Pain, Moderate (4-6) Ondansetron HCl (Ondansetron 4 Mg/2 Ml Inj) 4 mg IV Q8H PRN PRN Reason: Nausea And Vomiting Pantoprazole Sodium (Pantoprazole 40 Mg Tab) 40 mg PO DAILY ONE Stop: 02/14/21 22:02 Sodium Chloride (Sodium Chloride 0.9% 10 Ml Flush Syringe) 10 ml IV BID K[facility]N Sodium Chloride (Sodium Chloride 0.9% 10 Ml Flush Syringe) 10 ml IV PRN PRN PRN Reason: LINE FLUSH Sodium Chloride (Sodium Chloride 0.9% 10 Ml Flush Syringe) 10 ml INJ PRN PRN PRN Reason: LINE FLUSH Review of Systems All systems: negative Constitutional: lethargy, other (Left-sided weakness) Neurological: other (Left-sided weakness and dysarthria) Past History Past Medical History: diabetes Past Surgical History: No surgical history Social history: no significant social history Family history: no significant family history Medications and Allergies Allergies Allergy/AdvReac Type Severity Reaction Status Date / Time No Known Allergies Allergy Verified 02/14/21 21:43 Home Medications Medication Instructions Recorded Confirmed Last Taken Type Ferrous Gluconate [Fergon] 325 mg PO BID 10/21/14 10/24/14 10/24/14 History 325 mg metroNIDAZOLE/NS 500 MG/100 ML 500 mg PO BID 10/24/14 10/24/14 1 Day Ago History ~10/23/14 Naproxen Sodium (Nf) [Anaprox Ds 550 mg PO BID PRN #30 tablet 10/25/14 Unknown Rx (Nf)] Docusate Sodium [Colace] 100 mg PO DAILY PRN #30 capsule 10/29/14 Unknown Rx Ferrous Sulfate [Feosol 325 MG tab] 325 mg PO BID #90 tablet 10/29/14 Unknown Rx Ibuprofen [Motrin 800 MG tab] 800 mg PO TID PRN #30 tablet 10/29/14 Unknown Rx oxyCODONE /ACETAMINOPHEN [Percocet 1 - 2 tab PO Q4HR PRN #30 tablet 10/29/14 Unknown Rx 5/325 mg] Active Meds: Active Medications Acetaminophen (Acetaminophen 325 Mg Tab) 650 mg PO Q4H PRN PRN Reason: Pain MILD(1-3)/Fever >100.5/BEEBE Hydrocodone Bitart/Acetaminophen (Hydrocodone/Acetaminophen 5-325 Mg Tab) 1 each PO Q6H PRN PRN Reason: Pain, Moderate (4-6) Albuterol (Albuterol 2.5 Mg/3 Ml Nebu) 2.5 mg IH Q4HRT PRN PRN Reason: Shortness Of Breath Albuterol/Ipratropium (Ipratropium/Albuterol Sulfate 3 Ml Ampul.Neb) 1 ampul IH Q6HRT [facility] Aspirin (Aspirin 81 Mg Tab Chew) 81 mg PO QDAY [facility] Atorvastatin Calcium (Atorvastatin 40 Mg Tab) 80 mg PO QHS [facility] Azithromycin (Azithromycin 250 Mg Tab) 250 mg PO QDAY [facility]; Protocol Clopidogrel Bisulfate (Clopidogrel 75 Mg Tab) 75 mg PO QDAY [facility] Dextrose (Dextrose 50% In Water (25gm) 50 Ml Syringe) 0 ml IV Q30MIN PRN; Protocol PRN Reason: Hypoglycemia Docusate Sodium (Docusate Sodium 100 Mg Cap) 100 mg PO DAILY PRN PRN Reason: Constip unreliev by MOM/or NPO Famotidine (Famotidine 20 Mg/2 Ml Inj) 20 mg IV BID [facility] Last Admin: 02/15/21 01:00 Dose: 20 mg Documented by: Ferrous Gluconate (Ferrous Gluconate 324 Mg Tab) 325 mg PO BID [facility] Heparin Sodium (Porcine) (Heparin 5,000 Unit/1 Ml Vial) 5,000 unit SUB-Q Q8HR [facility] Last Admin: 02/15/21 06:56 Dose: 5,000 unit Documented by: Hydromorphone HCl (Hydromorphone 1 Mg/1 Ml Inj) 0.5 mg IV Q3H PRN PRN Reason: Pain , Severe (7-10) Sodium Chloride (Nacl 0.45% 1000 Ml) 1,000 mls @ 150 mls/hr IV DIRECT [facility] Last Admin: 02/15/21 06:56 Dose: 150 mls/hr Documented by: Ceftriaxone Sodium (Rocephin/Ns 2 Gm/100 Ml) 2 gm in 100 mls @ 200 mls/hr IV Q24HR [facility]; Protocol Last Admin: 02/15/21 01:00 Dose: 200 mls/hr Documented by: Insulin Human Lispro (Insulin Lispro 100 Unit/Ml) 0 unit SUB-Q Q6HR [facility]; Protocol Last Admin: 02/15/21 06:56 Dose: 6 unit Documented by: Metoprolol Tartrate (Metoprolol Tartrate 50 Mg Tab) 50 mg PO BID [facility] Last Admin: 02/15/21 01:00 Dose: 50 mg Documented by: Metronidazole (Metronidazole 500 Mg Tab) 500 mg PO BID [facility] Morphine Sulfate (Morphine 2 Mg/1 Ml Inj) 2 mg IV Q4H PRN PRN Reason: Pain, Moderate (4-6) Ondansetron HCl (Ondansetron 4 Mg/2 Ml Inj) 4 mg IV Q8H PRN PRN Reason: Nausea And Vomiting Sodium Chloride (Sodium Chloride 0.9% 10 Ml Flush Syringe) 10 ml IV BID [facility] Last Admin: 02/15/21 01:00 Dose: 10 ml Documented by: Sodium Chloride (Sodium Chloride 0.9% 10 Ml Flush Syringe) 10 ml IV PRN PRN PRN Reason: LINE FLUSH Sodium Chloride (Sodium Chloride 0.9% 10 Ml Flush Syringe) 10 ml IV PRN PRN PRN Reason: LINE FLUSH Physical Examination - Vital Signs Vital Signs: Vital Signs Temp Pulse Resp BP Pulse Ox 97.7 F 114 H 23 154/98 100 02/14/21 20:16 02/14/21 20:16 02/14/21 20:16 02/14/21 20:16 02/14/21 20:16 - Constitutional General appearance: uncomfortable - EENT EENT: Present: PERRL, mucous membranes moist - Respiratory Respiratory: Present: chest non-tender, lungs clear, respiratory distress, rhonchi - Cardiovascular Cardiovascular: Present: regular rate, normal S1, normal S2 Extremities: Present: no peripheral edema bilatateraly, no clubbing, cyanosis - Gastrointestinal Gastrointestinal: Present: normoactive bowel sounds - Integumentary Integumentary: Present: normal - Neurologic Cranial nerve examination: PERRL, EOMI, other (possible left facial droop difficult to see due to CPAP ) Speech examination: intact Sensorimotor examination: intact Detailed motor examination: other (she is with left side weakness left upper is 3/4 left lower 4/5, reflexes are suppressed ,gait unable to do) - Level of Consciousness 1a. Level of Consciousness: alert/keenly responsive - LOC Questions 1b. LOC Questions: answers both correctly - LOC Command 1c. LOC Commands: performs tasks correctly - Best Gaze 2. Best Gaze: normal - Visual 3. Visual: no visual loss - Facial Palsy 4. Facial Palsy: partial paralysis - Motor Arm 5a. Motor Arm Left: some gravity effort 5b. Motor Arm Right: no drift - Motor Leg 6a. Motor Leg Left: drift 6b. Motor Leg Right: no drift - Limb Ataxia 7. Limb Ataxia: absent - Sensory 8. Sensory: normal - Best Language 9. Best Language: no aphasia - Dysarthria 10. Dysarthria: normal - Extinction and Inattention 11. Extinction/Inattention: no abnormality - Scoring Total Score: 5 Stroke Severity: Moderate Stroke Results - Laboratory Findings CBC and BMP: 02/15/21 08:38 02/15/21 08:38 Abnormal Lab Findings: Abnormal Labs 02/14/21 02/14/21 02/14/21 20:21 20:21 20:21 WBC 15.6 H RBC 5.55 H Hct 43.3 H MCV 78 L MCH 26 L RDW 16.3 H Lymph % (Auto) Lymph # (Auto) Seg Neutrophils % Seg Neuts % (Manual) 96.0 H Lymphocytes % (Manual) 3.0 L Seg Neutrophils # Seg Neutrophils # Man 15.0 H Lymphocytes # (Manual) 0.5 L PT 16.7 H INR 1.30 H Sodium 131 L Potassium 5.1 H Chloride 88.4 L Carbon Dioxide 20 L BUN 34 H Creatinine 1.5 H Glucose 574 H* POC Glucose AST Troponin T 0.882 H* Albumin Triglycerides 292 H HDL Cholesterol 23 L 02/14/21 02/14/21 02/14/21 20:21 23:11 23:20 WBC RBC Hct MCV MCH RDW Lymph % (Auto) Lymph # (Auto) Seg Neutrophils % Seg Neuts % (Manual) Lymphocytes % (Manual) Seg Neutrophils # Seg Neutrophils # Man Lymphocytes # (Manual) PT INR Sodium Potassium Chloride Carbon Dioxide BUN Creatinine Glucose POC Glucose 562 H 422 H AST Troponin T 0.892 H* Albumin Triglycerides HDL Cholesterol 09/02/15/21 02/15/21 03:55 03:55 05:29 WBC RBC 5.17 H Hct MCV 77 L MCH 26 L RDW 15.8 H Lymph % (Auto) 4.9 L Lymph # (Auto) 0.5 L Seg Neutrophils % 89.2 H Seg Neuts % (Manual) Lymphocytes % (Manual) Seg Neutrophils # 8.4 H Seg Neutrophils # Man Lymphocytes # (Manual) PT INR Sodium 136 L Potassium Chloride 97.3 L Carbon Dioxide 18 L BUN 33 H Creatinine Glucose 402 H POC Glucose 345 H AST 46 H Troponin T 0.992 H* Albumin 3.0 L Triglycerides HDL Cholesterol Assessment and Plan Assessment and Plan VTE prophylaxis?: Chemical Plan of care discussed with patient/family: Yes - Patient Problems # Acute rightCVA with left side weakness -NIH inital is #9 -- today is #5 -CT brain and CTA Brain Nd Neck are remarkable for attenuation in right posterior frontal frontal {quality of CT brain is border line } -started on ASA and Plavix -Lipitor 80 mg -LDL#105 -MRI brain is pending -NO objection to have IV heparine -- hypercoagulable stat related to COVID -19 can not be excluded -Echo is pending -cardiac monitoring -PT/ST evaluate -Seizure precaution # STEMI (ST elevation myocardial infarction) -Admit the patient to the ICU. -Aspirin 81 mg p.o. daily. - Plavix 75 mg p.o. daily. - Lipitor 80 mg p.o. daily. - Patient is status post heart cath with drug-eluting stent on ICA. - Cardiology evaluation. - Echocardiogram. Heparin 5000 units subcu every 8 hours critical care evaluation. #Acute URI -We will send the Covid PCR test. - Rocephin 2 g IV daily and Zithromax to 50 mg p.o. daily. - Follow the Covid PCR and Covid inflammatory marker. # Diabetes - Humalog sliding scale Accu-Chek every 6 hours with moderate dose coverage. - Diabetic education -A1C (5) DVT prophylaxis -Heparin 5000 units subcu every 8 hours for DVT prophylaxis. -Pepcid 20 mg IV every 12 hours for GI prophylaxis. - Patient is a full code. - prognosis is guarded will follow
[2021-02-15] MEDS: ONDANSETRON 4 MG/2 ML INJ IV PRN (08:12)
[2021-02-15] MEDS: IPRATROPIUM/ALBUTEROL SULFATE 3 ML AMPUL.NEB IH SCH (08:42)
--- NOTE | 2021-02-15 09:18 | Consultation ---
History of Present Illness Consult date: 02/15/21 Reason for consult: other (STEMI) History of present illness: 55 y/o female, admitted with STEMI Past History Past Medical History: diabetes Past Surgical History: No surgical history Social history: no significant social history Family history: no significant family history Medications and Allergies Allergies Allergy/AdvReac Type Severity Reaction Status Date / Time No Known Allergies Allergy Verified 02/14/21 21:43 Home Medications Medication Instructions Recorded Confirmed Last Taken Type Ferrous Gluconate [Fergon] 325 mg PO BID 10/21/14 02/22/21 10/24/14 History 325 mg metroNIDAZOLE/NS 500 MG/100 ML 500 mg PO BID 10/24/14 02/22/21 1 Day Ago History ~10/23/14 Naproxen Sodium (Nf) [Anaprox Ds 550 mg PO BID PRN #30 tablet 10/25/14 02/22/21 Unknown Rx (Nf)] Docusate Sodium [Colace] 100 mg PO DAILY PRN #30 capsule 10/29/14 02/22/21 Unknown Rx Ferrous Sulfate [Feosol 325 MG tab] 325 mg PO BID #90 tablet 10/29/14 02/22/21 Unknown Rx Ibuprofen [Motrin 800 MG tab] 800 mg PO TID PRN #30 tablet 10/29/14 02/22/21 Unknown Rx oxyCODONE /ACETAMINOPHEN [Percocet 1 - 2 tab PO Q4HR PRN #30 tablet 10/29/14 Unknown Rx 5/325 mg] Active Meds: Active Medications Acetaminophen (Acetaminophen 325 Mg Tab) 650 mg PO Q4H PRN PRN Reason: Pain MILD(1-3)/Fever >100.5/BEEBE Hydrocodone Bitart/Acetaminophen (Hydrocodone/Acetaminophen 5-325 Mg Tab) 1 each PO Q6H PRN PRN Reason: Pain, Moderate (4-6) Albuterol (Albuterol 2.5 Mg/3 Ml Nebu) 2.5 mg IH Q4HRT PRN PRN Reason: Shortness Of Breath Aspirin (Aspirin 81 Mg Tab Chew) 81 mg PO QDAY [facility] Atorvastatin Calcium (Atorvastatin 40 Mg Tab) 80 mg PO QHS [facility] Azithromycin (Azithromycin 250 Mg Tab) 250 mg PO QDAY [facility]; Protocol Clopidogrel Bisulfate (Clopidogrel 75 Mg Tab) 75 mg PO QDAY [facility] Dextrose (Dextrose 50% In Water (25gm) 50 Ml Syringe) 0 ml IV Q30MIN PRN; Protocol PRN Reason: Hypoglycemia Docusate Sodium (Docusate Sodium 100 Mg Cap) 100 mg PO DAILY PRN PRN Reason: Constip unreliev by MOM/or NPO Famotidine (Famotidine 20 Mg/2 Ml Inj) 20 mg IV BID [facility] Last Admin: 02/15/21 01:00 Dose: 20 mg Documented by: Ferrous Gluconate (Ferrous Gluconate 324 Mg Tab) 325 mg PO BID [facility] Heparin Sodium (Porcine) (Heparin 5,000 Unit/1 Ml Vial) 5,000 unit SUB-Q Q8HR [facility] Last Admin: 02/15/21 06:56 Dose: 5,000 unit Documented by: Hydromorphone HCl (Hydromorphone 1 Mg/1 Ml Inj) 0.5 mg IV Q3H PRN PRN Reason: Pain , Severe (7-10) Ceftriaxone Sodium (Rocephin/Ns 2 Gm/100 Ml) 2 gm in 100 mls @ 200 mls/hr IV Q24HR [facility]; Protocol Last Admin: 02/15/21 01:00 Dose: 200 mls/hr Documented by: Insulin Human Lispro (Insulin Lispro 100 Unit/Ml) 0 unit SUB-Q Q6HR [facility]; Protocol Last Admin: 02/15/21 06:56 Dose: 6 unit Documented by: Metoprolol Tartrate (Metoprolol Tartrate 50 Mg Tab) 50 mg PO BID [facility] Last Admin: 02/15/21 01:00 Dose: 50 mg Documented by: Metronidazole (Metronidazole 500 Mg Tab) 500 mg PO BID [facility] Morphine Sulfate (Morphine 2 Mg/1 Ml Inj) 2 mg IV Q4H PRN PRN Reason: Pain, Moderate (4-6) Ondansetron HCl (Ondansetron 4 Mg/2 Ml Inj) 4 mg IV Q8H PRN PRN Reason: Nausea And Vomiting Last Admin: 02/15/21 08:12 Dose: 4 mg Documented by: Sodium Chloride (Sodium Chloride 0.9% 10 Ml Flush Syringe) 10 ml IV BID [facility] Last Admin: 02/15/21 01:00 Dose: 10 ml Documented by: Sodium Chloride (Sodium Chloride 0.9% 10 Ml Flush Syringe) 10 ml IV PRN PRN PRN Reason: LINE FLUSH Sodium Chloride (Sodium Chloride 0.9% 10 Ml Flush Syringe) 10 ml IV PRN PRN PRN Reason: LINE FLUSH Physical Examination Vital signs: Vital Signs Temp Pulse Resp BP Pulse Ox 97.7 F 114 H 23 154/98 100 02/14/21 20:16 02/14/21 20:16 02/14/21 20:16 02/14/21 20:16 02/14/21 20:16 Results - Laboratory Findings CBC and BMP: 02/28/21 06:13 02/28/21 06:13 PT/INR, D-dimer PT 16.7 Sec. (12.2-14.9) H 02/14/21 20:21 INR 1.30 (0.87-1.13) H 02/14/21 20:21 Abnormal lab findings: Abnormal Labs 02/14/21 02/14/21 02/14/21 20:21 20:21 20:21 WBC 15.6 H RBC 5.55 H Hct 43.3 H MCV 78 L MCH 26 L RDW 16.3 H Lymph % (Auto) Lymph # (Auto) Seg Neutrophils % Seg Neuts % (Manual) 96.0 H Lymphocytes % (Manual) 3.0 L Seg Neutrophils # Seg Neutrophils # Man 15.0 H Lymphocytes # (Manual) 0.5 L PT 16.7 H INR 1.30 H Sodium 131 L Potassium 5.1 H Chloride 88.4 L Carbon Dioxide 20 L BUN 34 H Creatinine 1.5 H Glucose 574 H* POC Glucose AST Troponin T 0.882 H* Albumin Triglycerides 292 H HDL Cholesterol 23 L 02/14/21 02/14/21 02/14/21 20:21 23:11 23:20 WBC RBC Hct MCV MCH RDW Lymph % (Auto) Lymph # (Auto) Seg Neutrophils % Seg Neuts % (Manual) Lymphocytes % (Manual) Seg Neutrophils # Seg Neutrophils # Man Lymphocytes # (Manual) PT INR Sodium Potassium Chloride Carbon Dioxide BUN Creatinine Glucose POC Glucose 562 H 422 H AST Troponin T 0.892 H* Albumin Triglycerides HDL Cholesterol 02/15/21 02/15/21 02/15/21 03:55 03:55 05:29 WBC RBC 5.17 H Hct MCV 77 L MCH 26 L RDW 15.8 H Lymph % (Auto) 4.9 L Lymph # (Auto) 0.5 L Seg Neutrophils % 89.2 H Seg Neuts % (Manual) Lymphocytes % (Manual) Seg Neutrophils # 8.4 H Seg Neutrophils # Man Lymphocytes # (Manual) PT INR Sodium 136 L Potassium Chloride 97.3 L Carbon Dioxide 18 L BUN 33 H Creatinine Glucose 402 H POC Glucose 345 H AST 46 H Troponin T 0.992 H* Albumin 3.0 L Triglycerides HDL Cholesterol Assessment and Plan 55 y/o female with STEMI and acute respiratory failure 1. Pulm- CXR appears to be more consistent with pulmonary edema and BNP is 4k. Stopped IVF's. Attempted to take of bipap but desats on cannula. Awake and tachypnic. Will give lasix 20mg IV x1 now to see if this helps with oxygen requirement. DO not feel this is infection. 2. Cards-STemi, goal directed therapy and follow up echo, done but not read yet. 3. Endo-elevated blood sugar likely related to acute mI, although patient could have underlying disease given age and weight, suggest checking A1C. 4. Guarded prognosis
[2021-02-15 09:26] LABS: Hematocrit 36.5 % (30.3-42.9); Hemoglobin 12.6 gm/dl (10.1-14.3); Mean Corpuscular HGB Conc 35 % (30-34); Mean Corpuscular Volume 75 fl (79-97); Red Blood Count 4.85 M/mm3 (3.65-5.03); Red Cell Distribution Width 16.2 % (13.2-15.2)
[2021-02-15 09:39] LABS: Calcium 8.8 mg/dL (8.4-10.2)
[2021-02-15] MEDS ORDERED: ASPIRIN 81 MG TAB CHEW PO SCH (10:00)
[2021-02-15] MEDS ORDERED: AZITHROMYCIN 250 MG TAB PO SCH (10:00)
[2021-02-15] MEDS ORDERED: metroNIDAZOLE 500 MG TAB PO SCH (10:00)
--- NOTE | 2021-02-15 10:06 | Electrocardiograph Report ---
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
--- NOTE | 2021-02-15 10:07 | Electrocardiograph Report ---
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
--- NOTE | 2021-02-15 10:08 | Electrocardiograph Report ---
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
--- NOTE | 2021-02-15 10:16 | Progress Note ---
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 An echocardiogram has been done for LVEF assessment. Result is pending. Subjective Date of service: 02/15/21 Interval history: Currently, she is on Bipap therapy. Denies chest pain. Right radial cath site is intact, no bleeding or hematoma noted. Objective Vital Signs Temp Pulse Resp BP BP Pulse Ox 02/15/21 07:48 98.9 F 02/15/21 07:00 84 36 H 125/80 98 02/15/21 06:45 85 36 H 117/79 98 02/15/21 06:30 81 30 H 117/79 97 02/15/21 06:15 86 39 H 113/84 96 02/15/21 06:12 88 39 H 113/84 98 02/15/21 06:00 86 40 H 113/84 96 02/15/21 05:45 88 40 H 110/80 96 02/15/21 05:30 87 35 H 110/80 97 02/15/21 05:15 87 40 H 113/82 98 02/15/21 05:00 84 38 H 118/84 98 02/15/21 04:45 86 37 H 113/82 98 02/15/21 04:30 86 38 H 113/82 98 02/15/21 04:15 86 37 H 124/85 98 02/15/21 04:00 86 37 H 124/85 96 02/15/21 03:45 83 33 H 112/81 97 02/15/21 03:44 98.6 F 02/15/21 03:30 84 36 H 112/81 96 02/15/21 03:15 85 38 H 123/90 96 02/15/21 03:00 84 37 H 123/90 96 02/15/21 02:45 84 35 H 120/85 95 02/15/21 02:30 83 38 H 120/85 96 02/15/21 02:15 82 18 114/82 96 02/15/21 02:00 83 36 H 117/83 97 02/15/21 01:45 83 29 H 124/91 98 02/15/21 01:30 84 21 117/83 97 02/15/21 01:15 83 35 H 114/83 98 02/15/21 01:02 37 H 100 02/15/21 01:00 83 36 H 115/79 98 02/15/21 00:45 83 36 H 130/88 97 02/15/21 00:30 90 37 H 134/91 99 02/15/21 00:15 92 H 37 H 134/91 99 02/15/21 00:00 95 H 25 H 135/108 93 02/14/21 23:53 99.9 F H 02/14/21 23:45 101 H 27 H 135/102 99 02/14/21 23:30 95 H 41 H 141/96 100 02/14/21 23:15 137/100 99 02/14/21 23:00 97 H 37 H 141/105 100 02/14/21 22:57 99 H 15 88 02/14/21 20:17 114 H 02/14/21 20:16 97.7 F 114 H 23 154/98 100 - Physical Examination General: Other (on bipap) HEENT: Positive: PERRL Neck: Positive: trachea midline Cardiac: Positive: Reg Rate and Rhythm Lungs: Positive: Decreased Breath Sounds Neuro: Positive: Grossly Intact Extremities: Absent: edema - Labs and Meds Cardiac Enzymes 02/15/21 Range/Units 03:55 AST 46 H (5-40) units/L Coagulation 02/14/21 Range/Units 20:21 PT 16.7 H (12.2-14.9) Sec. INR 1.30 H (0.87-1.13) APTT 25.3 (24.2-36.6) Sec. Lipids 02/14/21 Range/Units 20:21 Triglycerides 292 H (2-149) mg/dL Cholesterol 199 (50-199) mg/dL HDL Cholesterol 23 L (40-59) mg/dL Cholesterol/HDL Ratio 8.65 % CBC 02/14/21 02/15/21 02/15/21 Range/Units 20:21 03:55 08:38 WBC 15.6 H 9.4 10.6 (4.5-11.0) K/mm3 RBC 5.55 H 5.17 H 4.85 (3.65-5.03) M/mm3 Hgb 14.2 13.2 12.6 (10.1-14.3) gm/dl Hct 43.3 H 40.0 36.5 (30.3-42.9) % Plt Count 214 172 (140-440) K/mm3 Lymph # (Auto) 0.5 L (1.2-5.4) K/mm3 [place] # (Auto) 0.5 (0.0-0.8) K/mm3 Eos # (Auto) 0.1 (0.0-0.4) K/mm3 Baso # (Auto) 0.0 (0.0-0.1) K/mm3 Comprehensive Metabolic Panel 02/14/21 02/15/21 02/15/21 Range/Units 20:21 03:55 08:38 Sodium 131 L 136 L 135 L (137-145) mmol/L Potassium 5.1 H 4.3 4.3 (3.6-5.0) mmol/L Chloride 88.4 L 97.3 L 98.6 (98-107) mmol/L Carbon Dioxide 20 L 18 L 19 L (22-30) mmol/L BUN 34 H 33 H 31 H (7-17) mg/dL Creatinine 1.5 H 1.2 1.2 (0.6-1.2) mg/dL Glucose 574 H* 402 H 360 H (65-100) mg/dL Calcium 9.7 8.8 8.8 (8.4-10.2) mg/dL AST 46 H (5-40) units/L ALT 28 (7-56) units/L Alkaline Phosphatase 63 (35-129) units/L Total Protein 6.4 (6.3-8.2) g/dL Albumin 3.0 L (3.9-5) g/dL
--- NOTE | 2021-02-15 10:46 | Consultation ---
History of Present Illness - Reason for Consult Consult date: 02/15/21 COVID - History of Present Illness 55-year-old female with history of diabetes mellitus, admitted on 02/14/2021 secondary to left-sided weakness, left facial droop and dysarthria for unknown amount of time likely 12-24h with a previous 2-week history of flulike symptoms. EMS evaluation showed STEMI on EKG. On arrival, temperature 97.7, HR 114, RR 23, BP 154/98. Initial WBC 15.6. Glucose 574. Creatinine 1.5. K5.1. AST 46. Chest x-ray shows mild bilateral airspace disease. CT head shows microvascular angiopathy. patient was brought to [facility] s/p heart cath with stent placement in the RCA. Patient was out of window of TPA. Review of Systems: reviewed ED and H&P notes. Review of system deferred to m inimize COVID-19 transmission. Past History Past Medical History: diabetes Past Surgical History: No surgical history Social history: no significant social history Family history: no significant family history Medications and Allergies Allergies Allergy/AdvReac Type Severity Reaction Status Date / Time No Known Allergies Allergy Verified 02/14/21 21:43 Home Medications Medication Instructions Recorded Confirmed Last Taken Type Ferrous Gluconate [Fergon] 325 mg PO BID 10/21/14 10/24/14 10/24/14 History 325 mg metroNIDAZOLE/NS 500 MG/100 ML 500 mg PO BID 10/24/14 10/24/14 1 Day Ago History ~10/23/14 Naproxen Sodium (Nf) [Anaprox Ds 550 mg PO BID PRN #30 tablet 10/25/14 Unknown Rx (Nf)] Docusate Sodium [Colace] 100 mg PO DAILY PRN #30 capsule 10/29/14 Unknown Rx Ferrous Sulfate [Feosol 325 MG tab] 325 mg PO BID #90 tablet 10/29/14 Unknown Rx Ibuprofen [Motrin 800 MG tab] 800 mg PO TID PRN #30 tablet 10/29/14 Unknown Rx oxyCODONE /ACETAMINOPHEN [Percocet 1 - 2 tab PO Q4HR PRN #30 tablet 10/29/14 Unknown Rx 5/325 mg] Active Meds: Active Medications Acetaminophen (Acetaminophen 325 Mg Tab) 650 mg PO Q4H PRN PRN Reason: Pain MILD(1-3)/Fever >100.5/BEEBE Hydrocodone Bitart/Acetaminophen (Hydrocodone/Acetaminophen 5-325 Mg Tab) 1 each PO Q6H PRN PRN Reason: Pain, Moderate (4-6) Albuterol (Albuterol 2.5 Mg/3 Ml Nebu) 2.5 mg IH Q4HRT PRN PRN Reason: Shortness Of Breath Aspirin (Aspirin 81 Mg Tab Chew) 81 mg PO QDAY KARYN Atorvastatin Calcium (Atorvastatin 40 Mg Tab) 80 mg PO QHS KARYN Azithromycin (Azithromycin 250 Mg Tab) 500 mg PO QDAY KARYN; Protocol Clopidogrel Bisulfate (Clopidogrel 75 Mg Tab) 75 mg PO QDAY KARYN Dextrose (Dextrose 50% In Water (25gm) 50 Ml Syringe) 0 ml IV Q30MIN PRN; Protocol PRN Reason: Hypoglycemia Docusate Sodium (Docusate Sodium 100 Mg Cap) 100 mg PO DAILY PRN PRN Reason: Constip unreliev by MOM/or NPO Famotidine (Famotidine 20 Mg/2 Ml Inj) 20 mg IV BID [facility] Last Admin: 02/15/21 10:26 Dose: 20 mg Documented by: Ferrous Gluconate (Ferrous Gluconate 324 Mg Tab) 325 mg PO BID [facility] Heparin Sodium (Porcine) (Heparin 5,000 Unit/1 Ml Vial) 5,000 unit SUB-Q Q8HR KARYN Last Admin: 02/15/21 06:56 Dose: 5,000 unit Documented by: Hydromorphone HCl (Hydromorphone 1 Mg/1 Ml Inj) 0.5 mg IV Q3H PRN PRN Reason: Pain , Severe (7-10) Ceftriaxone Sodium (Rocephin/Ns 2 Gm/100 Ml) 2 gm in 100 mls @ 200 mls/hr IV Q24HR [facility]; Protocol Last Admin: 02/15/21 10:26 Dose: 200 mls/hr Documented by: Insulin Human Lispro (Insulin Lispro 100 Unit/Ml) 0 unit SUB-Q Q6HR [facility]; Protoc ol Last Admin: 02/15/21 06:56 Dose: 6 unit Documented by: Metoprolol Tartrate (Metoprolol Tartrate 50 Mg Tab) 50 mg PO BID [facility] Last Admin: 02/15/21 01:00 Dose: 50 mg Documented by: Morphine Sulfate (Morphine 2 Mg/1 Ml Inj) 2 mg IV Q4H PRN PRN Reason: Pain, Moderate (4-6) Ondansetron HCl (Ondansetron 4 Mg/2 Ml Inj) 4 mg IV Q8H PRN PRN Reason: Nausea And Vomiting Last Admin: 02/15/21 08:12 Dose: 4 mg Documented by: Sodium Chloride (Sodium Chloride 0.9% 10 Ml Flush Syringe) 10 ml IV BID KARYN Last Admin: 02/15/21 10:26 Dose: 10 ml Documented by: Sodium Chloride (Sodium Chloride 0.9% 10 Ml Flush Syringe) 10 ml IV PRN PRN PRN Reason: LINE FLUSH Sodium Chloride (Sodium Chloride 0.9% 10 Ml Flush Syringe) 10 ml IV PRN PRN PRN Reason: LINE FLUSH Physical Examination - Physical Exam Narrative exam: Physical exam deferred to minimize COVID-19 transmission during pandemic. - Constitutional Vitals: Vital Signs Temp Pulse Resp BP Pulse Ox 98.9 F 89 39 H 115/82 92 02/15/21 07:48 02/15/21 10:40 02/15/21 10:40 02/15/21 10:40 02/15/21 10:40 Temperature -Last 24 Hours Temperature 98.9 F Temperature 98.6 F Temperature 99.9 F Temperature 97.7 F Results - Labs CBC & Chem 7: 02/15/21 08:38 02/15/21 08:38 Labs: Abnormal lab results 02/14/21 02/14/21 02/14/21 Range/Units 20:21 20:21 20:21 WBC 15.6 H (4.5-11.0) K/mm3 RBC 5.55 H (3.65-5.03) M/mm3 Hct 43.3 H (30.3-42.9) % MCV 78 L (79-97) fl MCH 26 L (28-32) pg MCHC (30-34) % RDW 16.3 H (13.2-15.2) % Lymph % (Auto) (13.4-35.0) % Lymph # (Auto) (1.2-5.4) K/mm3 Seg Neutrophils % (40.0-70.0) % Seg Neuts % (Manual) 96.0 H (40.0-70.0) % Lymphocytes % (Manual) 3.0 L (13.4-35.0) % Seg Neutrophils # (1.8-7.7) K/mm3 Seg Neutrophils # Man 15.0 H (1.8-7.7) K/mm3 Lymphocytes # (Manual) 0.5 L (1.2-5.4) K/mm3 PT 16.7 H (12.2-14.9) Sec. INR 1.30 H (0.87-1.13) Sodium 131 L (137-145) mmol/L Potassium 5.1 H (3.6-5.0) mmol/L Chloride 88.4 L (98-107) mmol/L Carbon Dioxide 20 L (22-30) mmol/L BUN 34 H (7-17) mg/dL Creatinine 1.5 H (0.6-1.2) mg/dL Glucose 574 H* (65-100) mg/dL POC Glucose (70-105) mg/dL Magnesium (1.7-2.3) mg/dL AST (5-40) units/L Troponin T 0.882 H* (0.00-0.029) ng/mL NT-Pro-B Natriuret Pep (0-900) pg/mL Albumin (3.9-5) g/dL Triglycerides 292 H (2-149) mg/dL HDL Cholesterol 23 L (40-59) mg/dL 02/14/21 02/14/21 02/14/21 Range/Units 20:21 23:11 23:20 WBC (4.5-11.0) K/mm3 RBC (3.65-5.03) M/mm3 Hct (30.3-42.9) % MCV (79-97) fl MCH (28-32) pg MCHC (30-34) % RDW (13.2-15.2) % Lymph % (Auto) (13.4-35.0) % Lymph # (Auto) (1.2-5.4) K/mm3 Seg Neutrophils % (40.0-70.0) % Seg Neuts % (Manual) (40.0-70.0) % Lymphocytes % (Manual) (13.4-35.0) % Seg Neutrophils # (1.8-7.7) K/mm3 Seg Neutrophils # Man (1.8-7.7) K/mm3 Lymphocytes # (Manual) (1.2-5.4) K/mm3 PT (12.2-14.9) Sec. INR (0.87-1.13) Sodium (137-145) mmol/L Potassium (3.6-5.0) mmol/L Chloride (98-107) mmol/L Carbon Dioxide (22-30) mmol/L BUN (7-17) mg/dL Creatinine (0.6-1.2) mg/dL Glucose (65-100) mg/dL POC Glucose 562 H 422 H (70-105) mg/dL Magnesium (1.7-2.3) mg/dL AST (5-40) units/L Troponin T 0.892 H* (0.00-0.029) ng/mL NT-Pro-B Natriuret Pep (0-900) pg/mL Albumin (3.9-5) g/dL Triglycerides (2-149) mg/dL HDL Cholesterol (40-59) mg/dL 02/15/21 02/15/21 02/15/21 Range/Units 03:55 03:55 05:29 WBC (4.5-11.0) K/mm3 RBC 5.17 H (3.65-5.03) M/mm3 Hct (30.3-42.9) % MCV 77 L (79-97) fl MCH 26 L (28-32) pg MCHC (30-34) % RDW 15.8 H (13.2-15.2) % Lymph % (Auto) 4.9 L (13.4-35.0) % Lymph # (Auto) 0.5 L (1.2-5.4) K/mm3 Seg Neutrophils % 89.2 H (40.0-70.0) % Seg Neuts % (Manual) (40.0-70.0) % Lymphocytes % (Manual) (13.4-35.0) % Seg Neutrophils # 8.4 H (1.8-7.7) K/mm3 Seg Neutrophils # Man (1.8-7.7) K/mm3 Lymphocytes # (Manual) (1.2-5.4) K/mm3 PT (12.2-14.9) Sec. INR (0.87-1.13) Sodium 136 L (137-145) mmol/L Potassium (3.6-5.0) mmol/L Chloride 97.3 L (98-107) mmol/L Carbon Dioxide 18 L (22-30) mmol/L BUN 33 H (7-17) mg/dL Creatinine (0.6-1.2) mg/dL Glucose 402 H (65-100) mg/dL POC Glucose 345 H (70-105) mg/dL Magnesium (1.7-2.3) mg/dL AST 46 H (5-40) units/L Troponin T 0.992 H* (0.00-0.029) ng/mL NT-Pro-B Natriuret Pep (0-900) pg/mL Albumin 3.0 L (3.9-5) g/dL Triglycerides (2-149) mg/dL HDL Cholesterol (40-59) mg/dL 02/15/21 02/15/21 02/15/21 Range/Units 08:38 08:38 08:38 WBC (4.5-11.0) K/mm3 RBC (3.65-5.03) M/mm3 Hct (30.3-42.9) % MCV 75 L (79-97) fl MCH 26 L (28-32) pg MCHC 35 H (30-34) % RDW 16.2 H (13.2-15.2) % Lymph % (Auto) (13.4-35.0) % Lymph # (Auto) (1.2-5.4) K/mm3 Seg Neutrophils % (40.0-70.0) % Seg Neuts % (Manual) (40.0-70.0) % Lymphocytes % (Manual) (13.4-35.0) % Seg Neutrophils # (1.8-7.7) K/mm3 Seg Neutrophils # Man (1.8-7.7) K/mm3 Lymphocytes # (Manual) (1.2-5.4) K/mm3 PT (12.2-14.9) Sec. INR (0.87-1.13) Sodium 135 L (137-145) mmol/L Potassium (3.6-5.0) mmol/L Chloride (98-107) mmol/L Carbon Dioxide 19 L (22-30) mmol/L BUN 31 H (7-17) mg/dL Creatinine (0.6-1.2) mg/dL Glucose 360 H (65-100) mg/dL POC Glucose (70-105) mg/dL Magnesium 2.50 H (1.7-2.3) mg/dL AST (5-40) units/L Troponin T (0.00-0.029) ng/mL NT-Pro-B Natriuret Pep 4086 H (0-900) pg/mL Albumin (3.9-5) g/dL Triglycerides (2-149) mg/dL HDL Cholesterol (40-59) mg/dL Assessment and Plan Cultures: Blood culture pending SARS CoV2 PCR pending Assessment: 55-year-old female with history of diabetes mellitus, admitted on 02/14/2021 secondary to left-sided weakness, left facial droop and dysarthria for unknown amount of time likely 12-24h with a previous 2-week history of flulike symptoms: #Acute sepsis: Present on admission with tachycardia, leukocytosis, elevated creatinine, LFTs; likely secondary to bilateral pneumonia +/- STEMI +/- CVA. #Bilateral pneumonia: COVID vs CAP. CXR with bilateral pneumonia. Infllammatory markers pending. #Acute hypoxemic respiratory failure: Currently on BiPAP. #Elevated LFTs: from sepsis/COVID #ADAM: from sepsis/ COVID #STEMI: s/p heart cath with stent placement in the RCA. #Possible CVA: Patient was out of window of TPA per neuro. Recommendations: -Follow-up SARS-CoV-2 PCR -Okay to start dexamethasone 6 mg IV/PO daily for 10 days if okay with cardiology and neuro -No candidate for remdesivir given symtoms for >2 weeks -Obtain inflammatory markers, CRP, ferritin, D-dimer -Continue anticoagulation per System Protocol -Prone positioning as possible -Continue ceftriaxone and azithromycin All laboratory, cultures and imaging were reviewed. Will follow Kaitlynn Friend MD Infectious Diseases [facility] ([facility] M [phone] O [phone]
[2021-02-15] MEDS: FERROUS GLUCONATE 324 MG TAB PO SCH ×2 (12:19→23:55)
[2021-02-15] MEDS: AZITHROMYCIN 250 MG TAB PO SCH ×2 (12:20→16:00)
[2021-02-15] MEDS: CLOPIDOGREL 75 MG TAB PO SCH ×2 (12:20→16:00)
[2021-02-15 12:29] LABS: Platelet Count 165 K/mm3 (140-440)
[2021-02-15] MEDS ORDERED: HEPARIN 10,000 UNITS/10 ML VIAL IV PRN (13:58)
--- NOTE | 2021-02-15 14:08 | Event Note ---
Date: 02/15/21 Patient evaluated in follow-up to interventional procedure performed during the night. She presented with shortness of breath and EKG was an acute inferior lateral wall ST elevation myocardial infarction. Cardiac catheterization showed thrombus in the mid right coronary artery, which was treated with a single, resolute drug-eluting stent. She is currently in her bed in the ICU, awake on BiPAP. It will be noted that her serial chest x-ray show increasing, bilateral infiltrates suspicious for acute bilateral viral pneumonia. The nurse informs me that they have not yet swabbed the patient for a Covid test because "she is still wearing the BiPAP". Her echocardiogram today shows preserved left ventricular systolic function with ejection fraction 55%. Most notably, there is a small mobile echogenic mass in the right ventricle that appears likely thrombus. Recommendations: We need a prompt diagnosis of etiology of possible viral pneumonia, therefore the patient needs Covid testing immediately. I will assume that BiPAP therapy can be briefly interrupted to obtain a throat swab for Covid testing. With the presence of thrombus both in the arterial system last night, and possibly venous system thrombus in transition in the right ventricle, patient needs to be on anticoagulation therapy. I will start intravenous heparin, patient will need to be bridged in the long-term to either warfarin or a DOAC. We will continue other guideline directed medical therapy including dual oral antiplatelet therapy aspirin and Plavix.
[2021-02-15] MEDS ORDERED: HEPARIN 10,000 UNITS/10 ML VIAL IV ONE (14:30)
[2021-02-15] MEDS: FUROSEMIDE 40 MG/4 ML INJ IV SCH (15:19)
[2021-02-15 19:08] LABS: Hematocrit 38.4 % (30.3-42.9); Hemoglobin 12.7 gm/dl (10.1-14.3)
[2021-02-15 19:19] LABS: INR 1.2 (0.87-1.13)
[2021-02-15 19:20] LABS: Partial Thromboplastin Time 30.2 Sec. (24.2-36.6)
[2021-02-15 19:24] LABS: C-Reactive Protein 21.5 mg/dL (0.00-1.30)
--- NOTE | 2021-02-15 19:42 | Progress Note ---
Assessment and Plan Assessment and plan: This is a 55-year-old female with HTN, ex-smoker and uterine fibroids admitted for an acute right MCA CVA, STEMI and COVID-19 PUI Neuro: Acute right MCA CVA -Neurology consulted, appreciate recommendations -Aspirin, Plavix, Lipitor -MRI brain pending -MRA brain/neck pending -PT/OT/ST evaluation -Seizure precautions -CT head shows microvascular angiopathy, decreased attenuation along the posterior right frontal subcortical region, no acute intracranial hemorrhage -CTA head shows decreased attenuation along the posterior right frontal lobe, no CT evidence of significant stenosis involving proximal cerebral branches particularly the proximal right MCA -CTA neck shows mild atherosclerotic calcification involving the proximal internal carotid arteries bilaterally without significant stenosis -Permissive hypertension for 24 hours -Maintain euthymia and euglycemia -Seizure precautions CV: Acute inferior TX secondary to RCA thrombus, h/o HTN -Cardiology consulted, which recommendation -S/p PCI of the RCA -Echocardiogram shows LV EF 55%, suspected thrombus in right ventricle -Statin, beta-silas, Plavix and aspirin -Blood pressure monitor per protocol -Lasix Respiratory: Acute hypoxic respiratory failure -BiPAP -Titrated to OptiFlow -SPO2 monitoring -CCM consulted, appreciate recommendations -Pulmonary hygiene GI: Transaminitis ([place] secondary to COVID-19 infection or sepsis), obesity -Patient currently n.p.o. due to BiPAP -BR: Colace -PPI -24-hour -500 -Trend LFTs : Acute kidney injury -Presented with a BUN/creatinine of 1.5/34 -Creatinine now downtrending -Trend BMP -Consider nephrology consult if worsening -Send urine lytes if worsening -S/p IV fluids which was stopped due to elevated proBNP and pulmonary edema on CXR -Daily weights -Strict intake and output -purwick in place ID: Acute sepsis, B PNA -Patient disease consulted, appreciate recommendations -Patient is lightheaded from April given greater than 2 weeks of symptom onset per ID -Okay to start dexamethasone 6 mg IV/p.o. daily for 10 days if cleared by cardiology and neurology per ID -COVID-19 laboratory markers pending -COVID-19 PCR pending -Currently on ceftriaxone and azithromycin -Contact/droplet precautions -Trend COVID-19 inflammatory markers Heme: Anemia -Restart home iron -Trend CBC -Transfuse for hemoglobin less than 7 -Patient is anticoagulated with Plavix and aspirin -Bilateral SCDs to bilateral actions while in bed -D-dimer pending -Systemic anticoagulation with heparin drip Endo: Hyperglycemia -Hemoglobin A1c pending -SSI -[place] The high probability of a clinically significant, sudden or life threatening deterioration of the [CV,Resp,neuro] system(s) required my full and direct attention, intervention and personal management. The aggregate critical care time was [60] minutes. This time is in addition to time spent performing reported procedures but includes the following: [x] Data Review and interpretation [x] Patient assessment and monitoring of vital signs [x] Documentation [x] Medication orders and management Disposition Plan: icu Total Time Spent with Patient (Minutes): 60 History Interval history: This is a 55-year-old female with HTN, ex-smoker and uterine fibroids who presented to the emergency department as a code stroke and STEMI with last known well at 10 am on 02/14/2022 with left-sided weakness, dysarthria, left facial droop with complaints of cough and congestion and " the flu" for 2 weeks. ECG via EMS and in the emergency department showed ST elevation. Patient was ev aluated by telemetry neurology and was deemed not a candidate for TPA. Patient was taken emergently to the Risk Officer and noted to have a thrombus in the mid distal right coronary artery. She is status post PCI of RCA. Patient admitted to the hospitalist service s/p PCI for STEMI, CVA, acute hypoxic respiratory failure, COVID-19 PUI.. 02/15: S/p PCI, COVID-19 PCR pending, patient failed OptiFlow and was placed back on BiPAP today. Remains n.p.o. while on BiPAP. Hospitalist Physical - Constitutional Vitals: Temp Pulse Resp BP Pulse Ox 99.8 F H 90 37 H 139/97 98 02/15/21 16:00 02/15/21 19:15 02/15/21 19:15 02/15/21 19:15 02/15/21 19:15 General appearance: Present: mild distress, well-nourished - EENT Eyes: Present: PERRL, EOM intact ENT: clear oral mucosa - Neck Neck: Present: supple - Respiratory Respiratory effort: normal Respiratory: bilateral: diminished - Cardiovascular Rhythm: regular Heart Sounds: Present: S1 & S2. Absent: systolic murmur, diastolic murmur - Extremities Extremities: no ischemia, pulses intact, pulses symmetrical, normal temperature, normal color Peripheral Pulses: within normal limits - Abdominal General gastrointestinal: soft, non-tender, non-distended, normal bowel sounds - Integumentary Integumentary: Present: warm, dry - Psychiatric Psychiatric: cooperative - Allied Health Allied health notes reviewed: nursing, social work HEART Score - HEART Score Troponin: Troponin T 0.992 ng/mL (0.00-0.029) H* 02/15/21 03:55 Results - Labs CBC & Chem 7: 02/15/21 18:20 02/15/21 08:38 Labs: Laboratory Last Values WBC 10.6 K/mm3 (4.5-11.0) 02/15/21 08:38 RBC 4.85 M/mm3 (3.65-5.03) 02/15/21 08:38 Hgb 12.7 gm/dl (10.1-14.3) 02/15/21 18:20 Hct 38.4 % (30.3-42.9) 02/15/21 18:20 MCV 75 fl (79-97) L 02/15/21 08:38 MCH 26 pg (28-32) L 02/15/21 08:38 MCHC 35 % (30-34) H 02/15/21 08:38 RDW 16.2 % (13.2-15.2) H 02/15/21 08:38 Plt Count 165 K/mm3 (140-440) 02/15/21 18:20 Lymph % (Auto) 4.9 % (13.4-35.0) L 02/15/21 03:55 Randolph % (Auto) 5.3 % (0.0-7.3) 02/15/21 03:55 Eos % (Auto) 0.5 % (0.0-4.3) 02/15/21 03:55 Baso % (Auto) 0.1 % (0.0-1.8) 02/15/21 03:55 Lymph # (Auto) 0.5 K/mm3 (1.2-5.4) L 02/15/21 03:55 Randolph # (Auto) 0.5 K/mm3 (0.0-0.8) 02/15/21 03:55 Eos # (Auto) 0.1 K/mm3 (0.0-0.4) 02/15/21 03:55 Baso # (Auto) 0.0 K/mm3 (0.0-0.1) 02/15/21 03:55 Add Manual Diff Complete 02/14/21 20:21 Total Counted 100 02/14/21 20:21 Seg Neutrophils % 89.2 % (40.0-70.0) H 02/15/21 03:55 Seg Neuts % (Manual) 96.0 % (40.0-70.0) H 02/14/21 20:21 Lymphocytes % (Manual) 3.0 % (13.4-35.0) L 02/14/21 20:21 Monocytes % (Manual) 1.0 % (0.0-7.3) 02/14/21 20:21 Nucleated RBC % Not Reportable 02/14/21 20:21 Seg Neutrophils # 8.4 K/mm3 (1.8-7.7) H 02/15/21 03:55 Seg Neutrophils # Man 15.0 K/mm3 (1.8-7.7) H 02/14/21 20:21 Band Neutrophils # 0.0 K/mm3 02/14/21 20:21 Lymphocytes # (Manual) 0.5 K/mm3 (1.2-5.4) L 02/14/21 20:21 Abs React Lymphs (Man) 0.0 K/mm3 02/14/21 20:21 Monocytes # (Manual) 0.2 K/mm3 (0.0-0.8) 02/14/21 20:21 Eosinophils # (Manual) 0.0 K/mm3 (0.0-0.4) 02/14/21 20:21 Basophils # (Manual) 0.0 K/mm3 (0.0-0.1) 02/14/21 20:21 Metamyelocytes # 0.0 K/mm3 02/14/21 20:21 Myelocytes # 0.0 K/mm3 02/14/21 20:21 Promyelocytes # 0.0 K/mm3 02/14/21 20:21 Blast Cells # 0.0 K/mm3 02/14/21 20:21 WBC Morphology Not Reportable 02/14/21 20:21 Hypersegmented Neuts Not Reportable 02/14/21 20:21 Hyposegmented Neuts Not Reportable 02/14/21 20:21 Hypogranular Neuts Not Reportable 02/14/21 20:21 Smudge Cells Not Reportable 02/14/21 20:21 Toxic Granulation Not Reportable 02/14/21 20:21 Toxic Vacuolation Not Reportable 02/14/21 20:21 Dohle Bodies Not Reportable 02/14/21 20:21 Pelger-Huet Anomaly Not Reportable 02/14/21 20:21 Aba Rods Not Reportable 02/14/21 20:21 Platelet Estimate Consistent w auto 02/14/21 20:21 Clumped Platelets Not Reportable 02/14/21 20:21 Plt Clumps, EDTA Not Reportable 02/14/21 20:21 Large Platelets Not Reportable 02/14/21 20:21 Giant Platelets Not Reportable 02/14/21 20:21 Platelet Satelliting Not Reportable 02/14/21 20:21 Plt Morphology Comment Not Reportable 02/14/21 20:21 RBC Morphology Not Reportable 02/14/21 20:21 Dimorphic RBCs Not Reportable 02/14/21 20:21 Polychromasia Not Reportable 02/14/21 20:21 Hypochromasia 1+ 02/14/21 20:21 Poikilocytosis Not Reportable 02/14/21 20:21 Anisocytosis Few 02/14/21 20:21 Microcytosis Not Reportable 02/14/21 20:21 Macrocytosis Not Reportable 02/14/21 20:21 Spherocytes Not Reportable 02/14/21 20:21 Pappenheimer Bodies Not Reportable 02/14/21 20:21 Sickle Cells Not Reportable 02/14/21 20:21 Target Cells Not Reportable 02/14/21 20:21 Tear Drop Cells Not Reportable 02/14/21 20:21 Ovalocytes Not Reportable 02/14/21 20:21 Helmet Cells Not Reportable 02/14/21 20:21 Bang-Barber Bodies Not Reportable 02/14/21 20:21 Rickman Rings Not Reportable 02/14/21 20:21 [place] Cells Not Reportable 02/14/21 20:21 Bite Cells Not Reportable 02/14/21 20:21 Crenated Cell Not Reportable 09/21/21 20:21 Elliptocytes Not Reportable 02/14/21 20:21 Acanthocytes (Spur) Not Reportable 02/14/21 20:21 Rouleaux Not Reportable 02/14/21 20:21 Hemoglobin C Crystals Not Reportable 02/14/21 20:21 Schistocytes Not Reportable 02/14/21 20:21 Malaria parasites Not Reportable 02/14/21 20:21 Alberto Bodies Not Reportable 02/14/21 20:21 Hem Pathologist Commnt No 02/14/21 20:21 PT 15.8 Sec. (12.2-14.9) H 02/15/21 18:20 INR 1.20 (0.87-1.13) H 02/15/21 18:20 APTT 30.2 Sec. (24.2-36.6) 02/15/21 18:20 Thrombin Time 17.2 Sec. (15.1-19.6) 02/14/21 20:21 Sodium 135 mmol/L (137-145) L 02/15/21 08:38 Potassium 4.3 mmol/L (3.6-5.0) 02/15/21 08:38 Chloride 98.6 mmol/L (98-107) 02/15/21 08:38 Carbon Dioxide 19 mmol/L (22-30) L 02/15/21 08:38 Anion Gap 22 mmol/L 02/15/21 08:38 BUN 31 mg/dL (7-17) H 02/15/21 08:38 Creatinine 1.2 mg/dL (0.6-1.2) 02/15/21 08:38 Estimated GFR 56 ml/min 02/15/21 08:38 BUN/Creatinine Ratio 26 % 02/15/21 08:38 Glucose 360 mg/dL (65-100) H 02/15/21 08:38 POC Glucose 311 mg/dL (70-105) H 02/15/21 17:28 Calcium 8.8 mg/dL (8.4-10.2) 02/15/21 08:38 Phosphorus 3.20 mg/dL (2.5-4.5) 02/15/21 08:38 Magnesium 2.50 mg/dL (1.7-2.3) H 02/15/21 08:38 Total Bilirubin 0.20 mg/dL (0.1-1.2) 02/15/21 03:55 AST 46 units/L (5-40) H 02/15/21 03:55 ALT 28 units/L (7-56) 02/15/21 03:55 Alkaline Phosphatase 63 units/L (35-129) 02/15/21 03:55 Lactate Dehydrogenase 766 units/L (91-180) H 02/15/21 18:20 Troponin T 0.992 ng/mL (0.00-0.029) H* 02/15/21 03:55 C-Reactive Protein 21.50 mg/dL (0.00-1.30) H 02/15/21 18:20 NT-Pro-B Natriuret Pep 4086 pg/mL (0-900) H 02/15/21 08:38 Total Protein 6.4 g/dL (6.3-8.2) 02/15/21 03:55 Albumin 3.0 g/dL (3.9-5) L 02/15/21 03:55 Albumin/Globulin Ratio 0.9 % 02/15/21 03:55 Triglycerides 292 mg/dL (2-149) H 02/14/21 20:21 Cholesterol 199 mg/dL (50-199) 02/14/21 20:21 LDL Cholesterol Direct 105 mg/dL (50-130) 02/14/21 20:21 HDL Cholesterol 23 mg/dL (40-59) L 02/14/21 20:21 Cholesterol/HDL Ratio 8.65 % 02/14/21 20:21 Blood Type A POSITIVE 02/14/21 20:21 Antibody Screen Negative 02/14/21 20:21 Taylor/IV: Voiding Method External Female Catheter Active Medications - Current Medications Current Medications: Generic Name Dose Route Start Last Admin Trade Name Freq PRN Reason Stop Dose Admin Acetaminophen 650 mg 02/14/21 21:54 Acetaminophen 325 Mg Tab PO Q4H PRN Pain MILD(1-3)/Fever >100.5/BEEBE Hydrocodone Bitart/Acetaminophen 1 each 02/14/21 21:57 Hydrocodone/Acetaminophen 5-325 Mg Tab PO Q6H PRN Pain, Moderate (4-6) Albuterol 2.5 mg 02/14/21 21:54 Albuterol 2.5 Mg/3 Ml Nebu IH Q4HRT PRN Shortness Of Breath Aspirin 81 mg 02/16/21 10:00 Aspirin 81 Mg Tab Chew PO QDAY [facility] Atorvastatin Calcium 80 mg 02/15/21 22:00 Atorvastatin 40 Mg Tab PO QHS [facility] Clopidogrel Bisulfate 75 mg 02/15/21 10:00 02/15/21 16:00 Clopidogrel 75 Mg Tab PO 75 mg QDAY KARYN Administration Dextrose 0 ml 02/14/21 21:54 Dextrose 50% In Water (25gm) 50 Ml Syringe IV Q30MIN PRN Hypoglycemia Protocol Docusate Sodium 100 mg 02/14/21 22:04 Docusate Sodium 100 Mg Cap PO DAILY PRN Constip unreliev by MOM/or NPO Famotidine 20 mg 02/14/21 22:00 02/15/21 10:26 Famotidine 20 Mg/2 Ml Inj IV 20 mg BID KARYN Administration Ferrous Gluconate 325 mg 02/15/21 10:00 02/15/21 12:19 Ferrous Gluconate 324 Mg Tab PO Not Given BID [facility] Furosemide 40 mg 02/15/21 15:00 02/15/21 15:19 Furosemide 40 Mg/4 Ml Inj IV 40 mg QDAY [facility] Administration Heparin Sodium (Porcine) 4,200 unit 02/15/21 13:58 Heparin 10,000 Units/10 Ml Vial 40 unit/kg (4200 unit) IV Q6H PRN Anti-Xa Assay < 0.1 units/ml Hydromorphone HCl 0.5 mg 02/14/21 21:54 Hydromorphone 1 Mg/1 Ml Inj IV Q3H PRN Pain , Severe (7-10) Ceftriaxone Sodium 2 gm in 100 mls @ 200 mls/hr 02/14/21 23:00 02/15/21 10:26 Rocephin/Ns 2 Gm/100 Ml IV 200 mls/hr Q24HR [facility] Administration Protocol Heparin Sodium/Sodium Chloride 25,000 unit in 500 mls @ 20 mls/hr 02/15/21 14:00 Heparin/ 0.45% Nacl-25,000 Unit/500 Ml IV TITRATE [facility] Protocol 1,000 UNITS/HR Azithromycin 500 mg in 250 mls @ 250 mls/hr 02/16/21 04:00 Zithromax/Ns IV Q24H [facility] Insulin Human Lispro 0 unit 02/15/21 00:00 02/15/21 18:03 Insulin Lispro 100 Unit/Ml SUB-Q 8 unit Q6HR KARYN Administration Protocol Metoprolol Tartrate 50 mg 02/14/21 22:00 02/15/21 16:00 Metoprolol Tartrate 50 Mg Tab PO 50 mg BID KARYN Administration Morphine Sulfate 2 mg 02/14/21 21:54 Morphine 2 Mg/1 Ml Inj IV Q4H PRN Pain, Moderate (4-6) Ondansetron HCl 4 mg 02/14/21 21:54 02/15/21 08:12 Ondansetron 4 Mg/2 Ml Inj IV 4 mg Q8H PRN Administration Nausea And Vomiting Sodium Chloride 10 ml 02/14/21 22:00 02/15/21 10:26 Sodium Chloride 0.9% 10 Ml Flush Syringe IV 10 ml BID KARYN Administration Sodium Chloride 10 ml 02/14/21 21:54 Sodium Chloride 0.9% 10 Ml Flush Syringe IV PRN PRN LINE FLUSH Sodium Chloride 10 ml 02/14/21 21:54 Sodium Chloride 0.9% 10 Ml Flush Syringe IV PRN PRN LINE FLUSH Nutrition/Malnutrition Assess - Dietary Evaluation Nutrition/Malnutrition Findings: Nutrition Notes Start: 02/15/21 12:03 Freq: Status: Active Protocol: Document 02/15/21 12:03 SG (Rec: 02/15/21 12:15 SG [id number]) Nutrition Notes Initial or Follow up Brief Note Current Diagnosis Diabetes,Hypertension, Respiratory Failure,Stroke Other Pertinent Diagnosis hyperglycemia, STEMI Labs/Tests Na 136 BUN 33 BG 402 Pertinent Medications Insulin Height 5 ft 4 in Weight 104.3 kg [place] Body Weight (kg) 54.54 BMI 39.4 Weight Status Obese Subjective/Other Information RD consult for diet education. Pt currently NPO and unsure of covid 19 status. Pt on Bipap. Current % PO Negligible Minimum of two criteria No Is patient on ventilator? No Is Patient Ambulatory and/or Out of Bed No REE-([facility]-confined to bed) [phone] Calculation Used for Recommendations [facility] Nutrition Intervention Follow-Up By: 02/16/21 Additional Comments Diet order/intake/ speech assessment
[2021-02-15] MEDS ORDERED: INSULIN GLARGINE 100 UNITS/ML SUB-Q SCH (22:00)
[2021-02-15] MEDS: INSULIN GLARGINE 100 UNITS/ML SUB-Q SCH (23:55)
[2021-02-16] MEDS: INSULIN LISPRO 100 UNIT/ML SUB-Q SCH ×4 (00:38→18:49)
[2021-02-16] MEDS ORDERED: ACETAMINOPHEN 650 MG RECT SUPP PR PRN (01:00)
[2021-02-16] MEDS ORDERED: METOPROLOL TARTRATE 5 MG/5 ML INJ IV ONE (01:54)
[2021-02-16 03:30] LABS: Hematocrit 36.6 % (30.3-42.9); Hemoglobin 12.3 gm/dl (10.1-14.3); Mean Corpuscular HGB Conc 34 % (30-34); Mean Corpuscular Volume 77 fl (79-97); Platelet Count 163 K/mm3 (140-440); Red Blood Count 4.78 M/mm3 (3.65-5.03)
[2021-02-16 04:35] LABS: BUN/Creatinine Ratio 25; Blood Urea Nitrogen 27 mg/dL (7-17); Calcium 8.9 mg/dL (8.4-10.2); Hemolysis Index 7
[2021-02-16] MEDS: AZITHROMYCIN/NS 500 MG/250 ML 500 MG/250 ML BAG IV SCH (04:35)
[2021-02-16] MEDS: METOPROLOL TARTRATE 5 MG/5 ML INJ IV SCH ×2 (06:06→16:28)
[2021-02-16] MEDS ORDERED: FUROSEMIDE 20 MG/2 ML INJ IV ONE (08:45)
[2021-02-16] MEDS: HEPARIN/ 0.45% NACL DRIP 25,000 UNIT/500 ML BAG IV SCH (09:20)
[2021-02-16] MEDS ORDERED: ASPIRIN 81 MG TAB CHEW PO SCH (10:00)
[2021-02-16] MEDS: cefTRIAXone/NS 2 GM/100 ML 2 GM/100 ML BAG IV SCH (10:59)
[2021-02-16] MEDS: FAMOTIDINE 20 MG/2 ML INJ IV SCH ×2 (10:59→22:15)
[2021-02-16] MEDS: FUROSEMIDE 40 MG/4 ML INJ IV SCH (10:59)
[2021-02-16] MEDS ORDERED: ASPIRIN 300 MG RECT SUPP PR SCH (11:00)
--- NOTE | 2021-02-16 11:37 | XRay Report ---
XR abdomen 1V ap INDICATION: ngt placement verification. COMPARISON: None available. FINDINGS: The tip of the esophagogastric tube projects over the distal stomach. Signer Name: Gino Ayon MD Signed: 02/16/2021 11:32 AM Workstation Name: [id number]
--- NOTE | 2021-02-16 11:49 | Progress Note ---
Assessment and Plan - Patient Problems (1) STEMI (ST elevation myocardial infarction) Current Visit: Yes Status: Acute Plan to address problem: Patient presented with acute inferolateral ST elevation myocardial infarction manifested by thrombotic occlusion of the mid right coronary artery, treated with a single drug-eluting stent. Patient needs to be maintained on aspirin and Plavix. There is a report that she may have swallowing difficulty, I have therefore asked for the aspirin to be switched to a rectal 300 mg daily, but Plavix is also imperative and may need NG tube placement for continued therapy. (2) Venous thromboembolism Current Visit: Yes Status: Acute Plan to address problem: In addition to arterial thrombosis causing patient's acute myocardial infarction, there is evidence of venous thromboembolism with a likely mobile thrombus found in the right ventricle on echocardiography. We have started the patient on intravenous heparin, which will ultimately need to be transitioned to long-term oral anticoagulation either with warfarin or a NOAC. Subjective Date of service: 02/16/21 Interval history: Patient is awake, on BiPAP, no chest pain, no cardiac complaints. The COVID-19 swab test has been performed, results are pending. Objective Vital Signs Temp Pulse Pulse Resp BP Pulse Ox 02/16/21 09:20 84 29 H 119/77 97 02/16/21 07:00 98.1 F 02/16/21 06:06 86 110/75 02/16/21 05:15 86 28 H 110/74 97 02/16/21 05:00 85 29 H 110/74 95 02/16/21 04:45 87 33 H 109/71 97 02/16/21 04:43 88 34 H 109/71 97 02/16/21 04:30 84 29 H 109/71 95 02/16/21 04:15 85 28 H 114/79 99 02/16/21 04:00 87 89 33 H 114/79 96 02/16/21 03:45 86 31 H 113/77 95 02/16/21 03:38 100.0 F H 02/16/21 03:30 89 33 H 113/77 98 02/16/21 03:15 85 30 H 122/80 95 02/16/21 03:00 87 33 H 122/80 93 02/16/21 02:45 90 39 H 108/74 94 02/16/21 02:30 87 32 H 114/84 94 02/16/21 02:15 88 36 H 108/74 96 02/16/21 02:07 92 H 108/74 02/16/21 02:00 88 33 H 108/74 98 02/16/21 01:45 87 30 H 111/73 97 02/16/21 01:30 88 34 H 111/73 96 02/16/21 01:15 89 33 H 128/87 98 02/16/21 01:00 92 H 29 H 128/87 98 02/16/21 00:45 88 37 H 131/88 98 02/16/21 00:30 92 H 36 H 129/88 99 02/16/21 00:20 90 34 H 131/88 100 02/16/21 00:15 92 H 37 H 131/88 98 02/16/21 00:00 102.7 F H 92 H 93 H 34 H 131/88 97 02/15/21 23:56 92 H 128/85 02/15/21 23:45 91 H 37 H 128/85 98 02/15/21 23:30 93 H 32 H 128/85 97 02/15/21 23:15 90 34 H 126/69 97 02/15/21 23:00 90 28 H 126/69 96 02/15/21 22:45 93 H 36 H 127/92 95 02/15/21 22:30 93 H 36 H 127/92 97 02/15/21 22:15 93 H 26 H 104/59 97 02/15/21 22:00 93 H 25 H 104/59 98 02/15/21 21:45 90 37 H 100/49 97 02/15/21 21:31 90 35 H 100/49 97 02/15/21 21:15 88 36 H 109/57 95 02/15/21 21:01 92 H 42 H 109/57 97 02/15/21 20:45 91 H 38 H 128/72 96 02/15/21 20:30 89 40 H 128/72 95 02/15/21 20:15 93 H 22 124/89 96 02/15/21 20:00 100.0 F H 96 H 82 39 H 104/59 98 02/15/21 19:45 89 37 H 130/92 97 02/15/21 19:30 87 33 H 130/92 98 02/15/21 19:15 90 37 H 139/97 98 02/15/21 19:00 86 35 H 139/97 97 02/15/21 18:45 87 37 H 135/94 99 02/15/21 18:30 85 36 H 135/94 98 02/15/21 18:15 85 20 135/92 97 02/15/21 18:00 83 33 H 135/92 95 02/15/21 17:45 86 37 H 131/92 98 02/15/21 17:30 84 39 H 131/92 96 02/15/21 17:15 81 35 H 131/86 95 02/15/21 17:00 82 36 H 131/86 97 02/15/21 16:45 82 34 H 120/77 95 02/15/21 16:30 80 38 H 120/77 96 02/15/21 16:15 94 H 36 H 118/81 95 02/15/21 16:00 99.8 F H 92 H 93 H 28 H 118/81 97 02/15/21 15:45 95 H 42 H 120/84 95 02/15/21 15:30 89 36 H 120/84 97 02/15/21 15:15 94 H 40 H 121/86 98 02/15/21 15:00 89 26 H 121/86 96 02/15/21 14:45 90 37 H 144/89 94 02/15/21 14:30 89 34 H 144/89 96 02/15/21 14:16 93 H 38 H 120/79 93 02/15/21 14:15 93 H 42 H 120/79 95 02/15/21 14:00 88 36 H 120/79 94 02/15/21 13:45 89 36 H 131/85 96 02/15/21 13:31 91 H 41 H 131/85 95 02/15/21 13:15 91 H 38 H 122/84 96 02/15/21 13:00 92 H 38 H 122/84 96 02/15/21 12:45 96 H 40 H 128/83 98 02/15/21 12:30 88 37 H 128/83 97 02/15/21 12:15 91 H 36 H 123/78 97 02/15/21 12:00 98 F 88 88 36 H 123/78 97 - Physical Examination General: Other (on bipap) HEENT: Positive: PERRL Neck: Positive: trachea midline Cardiac: Positive: Reg Rate and Rhythm Lungs: Positive: Decreased Breath Sounds Neuro: Positive: Grossly Intact Abdomen: Positive: Unremarkable Extremities: Absent: edema - Labs and Meds Cardiac Enzymes 02/15/21 Range/Units 18:20 Lactate Dehydrogenase 766 H (91-180) units/L Coagulation 02/15/21 Range/Units 18:20 PT 15.8 H (12.2-14.9) Sec. INR 1.20 H (0.87-1.13) APTT 30.2 (24.2-36.6) Sec. CBC 02/15/21 02/15/21 02/16/21 Range/Units 08:38 18:20 02:44 WBC 8.1 (4.5-11.0) K/mm3 RBC 4.78 (3.65-5.03) M/mm3 Hgb 12.7 12.3 (10.1-14.3) gm/dl Hct 38.4 36.6 (30.3-42.9) % Plt Count 165 165 163 (140-440) K/mm3 Comprehensive Metabolic Panel 02/16/21 Range/Units 02:44 Sodium 138 (137-145) mmol/L Potassium 3.9 (3.6-5.0) mmol/L Chloride 100.6 (98-107) mmol/L Carbon Dioxide 23 (22-30) mmol/L BUN 27 H (7-17) mg/dL Creatinine 1.1 (0.6-1.2) mg/dL Glucose 269 H (65-100) mg/dL Calcium 8.9 (8.4-10.2) mg/dL
--- NOTE | 2021-02-16 12:13 | Progress Note ---
Assessment and Plan Cultures: 02/16/2021 blood culture: In process SARS CoV2 PCR pending Assessment: 55-year-old female with history of diabetes mellitus, admitted on 02/14/2021 secondary to left-sided weakness, left facial droop and dysarthria for unknown amount of time likely 12-24h with a previous 2-week history of flulike symptoms: #Acute sepsis: likely secondary to bilateral pneumonia +/- STEMI +/- CVA. #Bilateral pneumonia: COVID vs CAP. CXR with bilateral pneumonia. Covid PCR is pending. CRP 21.5, ferritin 837, LDH 766, D-dimer > 10K. #Acute hypoxemic respiratory failure: Currently on BiPAP. #Elevated LFTs: from sepsis/COVID #ADAM: from sepsis/ COVID #STEMI: s/p heart cath with stent placement in the RCA. #Possible CVA: Patient was out of window of TPA per neuro. Recommendations: -Follow-up SARS-CoV-2 PCR, if positive, start dexamethasone 6 mg IV/PO daily for 10 days -Procalcitonin ordered -Continue ceftriaxone and azithromycin x total 5 days Simin Engel MD, FACP [facility] O: [phone] F: [phone] Subjective Date of service: 02/16/21 Interval history: Febrile last night. On BiPAP. Objective - Exam Narrative Exam: Physical Exam (reviewed in chart to minimize risk of transmission) Constitutional: deferred Head, Ears, Nose: deferred Eyes: deferred Neck: deferred Oral: deferred Cardiovascular: deferred Respiratory: deferred GI: deferred Musculoskeletal: deferred Skin: deferred Hem/Lymphatic: deferred Psych: deferred Neurological: deferred - Constitutional Vitals: Vital Signs Temp Pulse Resp BP Pulse Ox 98.8 F 84 29 H 119/77 97 02/16/21 11:58 02/16/21 09:20 02/16/21 09:20 02/16/21 09:20 02/16/21 09:20 Temperature -Last 24 Hours Temperature 98.8 F Temperature 98.1 F Temperature 100.0 F Temperature 102.7 F Temperature 100.0 F Temperature 99.8 F - Labs CBC & Chem 7: 02/16/21 02:44 02/16/21 02:44 Labs: Abnormal lab results 02/15/21 02/15/21 02/15/21 Range/Units 17:28 18:20 18:20 MCV (79-97) fl MCH (28-32) pg RDW (13.2-15.2) % PT (12.2-14.9) Sec. INR (0.87-1.13) D-Dimer > 15184 H (0-234) ng/mlDDU BUN (7-17) mg/dL Glucose (65-100) mg/dL POC Glucose 311 H (70-105) mg/dL Ferritin 837.7 H (10.0-200.0) ng/mL Lactate Dehydrogenase (91-180) units/L C-Reactive Protein (0.00-1.30) mg/dL 02/15/21 02/15/21 02/15/21 Range/Units 18:20 18:20 23:45 MCV (79-97) fl MCH (28-32) pg RDW (13.2-15.2) % PT 15.8 H (12.2-14.9) Sec. INR 1.20 H (0.87-1.13) D-Dimer (0-234) ng/mlDDU BUN (7-17) mg/dL Glucose (65-100) mg/dL POC Glucose 203 H (70-105) mg/dL Ferritin (10.0-200.0) ng/mL Lactate Dehydrogenase 766 H (91-180) units/L C-Reactive Protein 21.50 H (0.00-1.30) mg/dL 02/16/21 02/16/21 02/16/21 Range/Units 02:44 02:44 05:47 MCV 77 L (79-97) fl MCH 26 L (28-32) pg RDW 16.0 H (13.2-15.2) % PT (12.2-14.9) Sec. INR (0.87-1.13) D-Dimer (0-234) ng/mlDDU BUN 27 H (7-17) mg/dL Glucose 269 H (65-100) mg/dL POC Glucose 275 H (70-105) mg/dL Ferritin (10.0-200.0) ng/mL Lactate Dehydrogenase (91-180) units/L C-Reactive Protein (0.00-1.30) mg/dL 02/16/21 Range/Units 11:50 MCV (79-97) fl MCH (28-32) pg RDW (13.2-15.2) % PT (12.2-14.9) Sec. INR (0.87-1.13) D-Dimer (0-234) ng/mlDDU BUN (7-17) mg/dL Glucose (65-100) mg/dL POC Glucose 251 H (70-105) mg/dL Ferritin (10.0-200.0) ng/mL Lactate Dehydrogenase (91-180) units/L C-Reactive Protein (0.00-1.30) mg/dL
[2021-02-16] MEDS: ASPIRIN 81 MG TAB CHEW PO SCH (12:43)
[2021-02-16] MEDS: CLOPIDOGREL 75 MG TAB PO SCH (12:43)
--- NOTE | 2021-02-16 12:56 | Progress Note ---
Assessment and Plan 55 y/o female with STEMI and acute respiratory failure 02/16/21: Responded well to diuresis, will give more lasix today. Going for MRI today. Spoke with downstairs who is upset about lack of visitation. he also states that he has a neurologist who is willing to accept the patient to [facility] but he refused to give me the name of the physician. Will continue supportive measures. 1. Pulm- CXR appears to be more consistent with pulmonary edema and BNP is 4k. Stopped IVF's. Attempted to take of bipap but desats on cannula. Awake and tachypnic. Will give lasix 20mg IV x1 now to see if this helps with oxygen re quirement. DO not feel this is infection. 2. Cards-STemi, goal directed therapy and follow up echo, done but not read yet. 3. Endo-elevated blood sugar likely related to acute mI, although patient could have underlying disease given age and weight, suggest checking A1C. 4. Guarded prognosis Subjective Date of service: 02/16/21 Interval history: Desatted on attempts to wean bipap yesterday. Cards concern for COVID so reque sted swab, which was done this am. Down to 60% on the bipap. Negative almost a liter in the last 24 hours. renal function is normal. Objective Vital Signs - 12hr 02/16/21 02/16/21 02/16/21 00:30 00:45 01:00 Temperature Pulse Rate 92 H 88 92 H Pulse Rate [ From Monitor] Respiratory 36 H 37 H 29 H Rate Blood Pressure 129/88 131/88 128/87 O2 Sat by Pulse 99 98 98 Oximetry 02/16/21 02/16/21 02/16/21 01:15 01:30 01:45 Temperature Pulse Rate 89 88 87 Pulse Rate [ From Monitor] Respiratory 33 H 34 H 30 H Rate Blood Pressure 128/87 111/73 111/73 O2 Sat by Pulse 98 96 97 Oximetry 02/16/21 02/16/21 02/16/21 02:00 02:07 02:15 Temperature Pulse Rate 88 92 H 88 Pulse Rate [ From Monitor] Respiratory 33 H 36 H Rate Blood Pressure 108/74 108/74 108/74 O2 Sat by Pulse 98 96 Oximetry 02/16/21 02/16/21 02/16/21 02:30 02:45 03:00 Temperature Pulse Rate 87 90 87 Pulse Rate [ From Monitor] Respiratory 32 H 39 H 33 H Rate Blood Pressure 114/84 108/74 122/80 O2 Sat by Pulse 94 94 93 Oximetry 02/16/21 02/16/21 02/16/21 03:15 03:30 03:38 Temperature 100.0 F H Pulse Rate 85 89 Pulse Rate [ From Monitor] Respiratory 30 H 33 H Rate Blood Pressure 122/80 113/77 O2 Sat by Pulse 95 98 Oximetry 02/16/21 02/16/21 02/16/21 03:45 04:00 04:15 Temperature Pulse Rate 86 87 85 Pulse Rate [ 89 From Monitor] Respiratory 31 H 33 H 28 H Rate Blood Pressure 113/77 114/79 114/79 O2 Sat by Pulse 95 96 99 Oximetry 02/16/21 02/16/21 02/16/21 04:30 04:43 04:45 Temperature Pulse Rate 84 88 87 Pulse Rate [ From Monitor] Respiratory 29 H 34 H 33 H Rate Blood Pressure 109/71 109/71 109/71 O2 Sat by Pulse 95 97 97 Oximetry 02/16/21 02/16/21 02/16/21 05:00 05:15 06:06 Temperature Pulse Rate 85 86 86 Pulse Rate [ From Monitor] Respiratory 29 H 28 H Rate Blood Pressure 110/74 110/74 110/75 O2 Sat by Pulse 95 97 Oximetry 02/16/21 02/16/21 02/16/21 07:00 09:20 11:58 Temperature 98.1 F 98.8 F Pulse Rate 84 Pulse Rate [ From Monitor] Respiratory 29 H Rate Blood Pressure 119/77 O2 Sat by Pulse 97 Oximetry Gastrointestinal: normoactive bowel sounds Integumentary: normal CBC and BMP: 02/16/21 02:44 02/16/21 02:44 ABG, PT/INR, D-dimer: PT/INR, D-dimer PT 15.8 Sec. (12.2-14.9) H 02/15/21 18:20 INR 1.20 (0.87-1.13) H 02/15/21 18:20 D-Dimer > 93659 ng/mlDDU (0-234) H 02/15/21 18:20 Abnormal lab findings: Abnormal Labs 09/21/21 09/21/21 09/21/21 20:21 20:21 20:21 WBC 15.6 H RBC 5.55 H Hct 43.3 H MCV 78 L MCH 26 L MCHC RDW 16.3 H Lymph % (Auto) Lymph # (Auto) Seg Neutrophils % Seg Neuts % (Manual) 96.0 H Lymphocytes % (Manual) 3.0 L Seg Neutrophils # Seg Neutrophils # Man 15.0 H Lymphocytes # (Manual) 0.5 L PT 16.7 H INR 1.30 H D-Dimer Sodium 131 L Potassium 5.1 H Chloride 88.4 L Carbon Dioxide 20 L BUN 34 H Creatinine 1.5 H Glucose 574 H* POC Glucose Magnesium Ferritin AST Lactate Dehydrogenase Troponin T 0.882 H* C-Reactive Protein NT-Pro-B Natriuret Pep Albumin Triglycerides 292 H HDL Cholesterol 23 L 02/14/21 02/14/21 02/14/21 20:21 23:11 23:20 WBC RBC Hct MCV MCH MCHC RDW Lymph % (Auto) Lymph # (Auto) Seg Neutrophils % Seg Neuts % (Manual) Lymphocytes % (Manual) Seg Neutrophils # Seg Neutrophils # Man Lymphocytes # (Manual) PT INR D-Dimer Sodium Potassium Chloride Carbon Dioxide BUN Creatinine Glucose POC Glucose 562 H 422 H Magnesium Ferritin AST Lactate Dehydrogenase Troponin T 0.892 H* C-Reactive Protein NT-Pro-B Natriuret Pep Albumin Triglycerides HDL Cholesterol 02/15/21 02/15/21 02/15/21 03:55 03:55 05:29 WBC RBC 5.17 H Hct MCV 77 L MCH 26 L MCHC RDW 15.8 H Lymph % (Auto) 4.9 L Lymph # (Auto) 0.5 L Seg Neutrophils % 89.2 H Seg Neuts % (Manual) Lymphocytes % (Manual) Seg Neutrophils # 8.4 H Seg Neutrophils # Man Lymphocytes # (Manual) PT INR D-Dimer Sodium 136 L Potassium Chloride 97.3 L Carbon Dioxide 18 L BUN 33 H Creatinine Glucose 402 H POC Glucose 345 H Magnesium Ferritin AST 46 H Lactate Dehydrogenase Troponin T 0.992 H* C-Reactive Protein NT-Pro-B Natriuret Pep Albumin 3.0 L Triglycerides HDL Cholesterol 02/15/21 02/15/21 02/15/21 08:38 08:38 08:38 WBC RBC Hct MCV 75 L MCH 26 L MCHC 35 H RDW 16.2 H Lymph % (Auto) Lymph # (Auto) Seg Neutrophils % Seg Neuts % (Manual) Lymphocytes % (Manual) Seg Neutrophils # Seg Neutrophils # Man Lymphocytes # (Manual) PT INR D-Dimer Sodium 135 L Potassium Chloride Carbon Dioxide 19 L BUN 31 H Creatinine Glucose 360 H POC Glucose Magnesium 2.50 H Ferritin AST Lactate Dehydrogenase Troponin T C-Reactive Protein NT-Pro-B Natriuret Pep 4086 H Albumin Triglycerides HDL Cholesterol 02/15/21 02/15/21 02/15/21 11:15 17:28 18:20 WBC RBC Hct MCV MCH MCHC RDW Lymph % (Auto) Lymph # (Auto) Seg Neutrophils % Seg Neuts % (Manual) Lymphocytes % (Manual) Seg Neutrophils # Seg Neutrophils # Man Lymphocytes # (Manual) PT INR D-Dimer > 80867 H Sodium Potassium Chloride Carbon Dioxide BUN Creatinine Glucose POC Glucose 317 H 311 H Magnesium Ferritin AST Lactate Dehydrogenase Troponin T C-Reactive Protein NT-Pro-B Natriuret Pep Albumin Triglycerides HDL Cholesterol 02/15/21 02/15/21 02/15/21 18:20 18:20 18:20 WBC RBC Hct MCV MCH MCHC RDW Lymph % (Auto) Lymph # (Auto) Seg Neutrophils % Seg Neuts % (Manual) Lymphocytes % (Manual) Seg Neutrophils # Seg Neutrophils # Man Lymphocytes # (Manual) PT 15.8 H INR 1.20 H D-Dimer Sodium Potassium Chloride Carbon Dioxide BUN Creatinine Glucose POC Glucose Magnesium Ferritin 837.7 H AST Lactate Dehydrogenase 766 H Troponin T C-Reactive Protein 21.50 H NT-Pro-B Natriuret Pep Albumin Triglycerides HDL Cholesterol 02/15/21 02/16/21 02/16/21 23:45 02:44 02:44 WBC RBC Hct MCV 77 L MCH 26 L MCHC RDW 16.0 H Lymph % (Auto) Lymph # (Auto) Seg Neutrophils % Seg Neuts % (Manual) Lymphocytes % (Manual) Seg Neutrophils # Seg Neutrophils # Man Lymphocytes # (Manual) PT INR D-Dimer Sodium Potassium Chloride Carbon Dioxide BUN 27 H Creatinine Glucose 269 H POC Glucose 203 H Magnesium Ferritin AST Lactate Dehydrogenase Troponin T C-Reactive Protein NT-Pro-B Natriuret Pep Albumin Triglycerides HDL Cholesterol 02/16/21 02/16/21 05:47 11:50 WBC RBC Hct MCV MCH MCHC RDW Lymph % (Auto) Lymph # (Auto) Seg Neutrophils % Seg Neuts % (Manual) Lymphocytes % (Manual) Seg Neutrophils # Seg Neutrophils # Man Lymphocytes # (Manual) PT INR D-Dimer Sodium Potassium Chloride Carbon Dioxide BUN Creatinine Glucose POC Glucose 275 H 251 H Magnesium Ferritin AST Lactate Dehydrogenase Troponin T C-Reactive Protein NT-Pro-B Natriuret Pep Albumin Triglycerides HDL Cholesterol
--- NOTE | 2021-02-16 13:31 | Progress Note ---
Assessment and Plan Assessment and Plan VTE prophylaxis?: Chemical Plan of care discussed with patient/family: Yes - Patient Problems # Acute rightCVA with left side weakness -NIH inital is #9 -- today is #5 -CT brain and CTA Brain Nd Neck are remarkable for attenuation in right posterior frontal frontal {quality of CT brain is border line } -started on ASA and Plavix -Lipitor 80 mg -LDL#105 -MRI brain is pending -NO objection to have IV heparine -- hypercoagulable stat related to COVID -19 can not be excluded -Echo is with EF#55 and possible right ventricular thrombus -cardiac monitoring -PT/ST evaluate -Seizure precaution # STEMI (ST elevation myocardial infarction) -Admit the patient to the ICU. -Aspirin 81 mg p.o. daily. - Plavix 75 mg p.o. daily. - Lipitor 80 mg p.o. daily. - Patient is status post heart cath with drug-eluting stent on ICA. - Cardiology evaluation. - Echocardiogram. Heparin 5000 units subcu every 8 hours critical care evaluation. #Acute URI -We will send the Covid PCR test. - Rocephin 2 g IV daily and Zithromax to 50 mg p.o. daily. - Follow the Covid PCR and Covid inflammatory marker. # Diabetes - Humalog sliding scale Accu-Chek every 6 hours with moderate dose coverage. - Diabetic education -A1C (5) DVT prophylaxis -Heparin 5000 units subcu every 8 hours for DVT prophylaxis. -Pepcid 20 mg IV every 12 hours for GI prophylaxis. - Patient is a full code. - prognosis is guarded will follow Subjective Date of service: 02/16/21 Principal diagnosis: CVA with left side weakness ,elevated inflammatory markers Interval history: status is same she is with left side weakness U>L COVID-19 PCR is pending all inflammatory markers are elevated Echo is suggestive of right ventricle thrombus Objective - Vital Sign Vital Signs - 12hr 02/16/21 02/16/21 02/16/21 01:30 01:45 02:00 Temperature Pulse Rate 88 87 88 Pulse Rate [ From Monitor] Respiratory 34 H 30 H 33 H Rate Blood Pressure 111/73 111/73 108/74 O2 Sat by Pulse 96 97 98 Oximetry 02/16/21 02/16/21 02/16/21 02:07 02:15 02:30 Temperature Pulse Rate 92 H 88 87 Pulse Rate [ From Monitor] Respiratory 36 H 32 H Rate Blood Pressure 108/74 108/74 114/84 O2 Sat by Pulse 96 94 Oximetry 02/16/21 02/16/21 02/16/21 02:45 03:00 03:15 Temperature Pulse Rate 90 87 85 Pulse Rate [ From Monitor] Respiratory 39 H 33 H 30 H Rate Blood Pressure 108/74 122/80 122/80 O2 Sat by Pulse 94 93 95 Oximetry 02/16/21 02/16/21 02/16/21 03:30 03:38 03:45 Temperature 100.0 F H Pulse Rate 89 86 Pulse Rate [ From Monitor] Respiratory 33 H 31 H Rate Blood Pressure 113/77 113/77 O2 Sat by Pulse 98 95 Oximetry 02/16/21 02/16/21 02/16/21 04:00 04:15 04:30 Temperature Pulse Rate 87 85 84 Pulse Rate [ 89 From Monitor] Respiratory 33 H 28 H 29 H Rate Blood Pressure 114/79 114/79 109/71 O2 Sat by Pulse 96 99 95 Oximetry 02/16/21 02/16/21 02/16/21 04:43 04:45 05:00 Temperature Pulse Rate 88 87 85 Pulse Rate [ From Monitor] Respiratory 34 H 33 H 29 H Rate Blood Pressure 109/71 109/71 110/74 O2 Sat by Pulse 97 97 95 Oximetry 02/16/21 02/16/21 02/16/21 05:15 06:06 07:00 Temperature 98.1 F Pulse Rate 86 86 Pulse Rate [ From Monitor] Respiratory 28 H Rate Blood Pressure 110/74 110/75 O2 Sat by Pulse 97 Oximetry 02/16/21 02/16/21 09:20 11:58 Temperature 98.8 F Pulse Rate 84 Pulse Rate [ From Monitor] Respiratory 29 H Rate Blood Pressure 119/77 O2 Sat by Pulse 97 Oximetry - General Apperance Constitutional: uncomfortable - EENT EENT: PERRL, mucous membranes moist - Respiratory Respiratory: chest non-tender, lungs clear, rhonchi - Cardiovascular Cardiovascular: regular rate, normal S1, normal S2 Extremities: no peripheral edema bilat, no clubbing, cyanosis - Gastrointestinal Gastrointestinal: normoactive bowel sounds - Integumentary Integumentary: normal - Neurologic Cranial nerve examination: PERRL, EOMI, other (left facial droop) Detailed motor examination: other (left upper3/5 left lower4-/5,gait not done) - Laboratory Findings CBC and BMP: 02/16/21 02:44 02/16/21 02:44 Abnormal Lab Findings: Abnormal Labs 02/14/21 02/14/21 02/14/21 20:21 20:21 20:21 WBC 15.6 H RBC 5.55 H Hct 43.3 H MCV 78 L MCH 26 L MCHC RDW 16.3 H Lymph % (Auto) Lymph # (Auto) Seg Neutrophils % Seg Neuts % (Manual) 96.0 H Lymphocytes % (Manual) 3.0 L Seg Neutrophils # Seg Neutrophils # Man 15.0 H Lymphocytes # (Manual) 0.5 L PT 16.7 H INR 1.30 H D-Dimer Sodium 131 L Potassium 5.1 H Chloride 88.4 L Carbon Dioxide 20 L BUN 34 H Creatinine 1.5 H Glucose 574 H* POC Glucose Magnesium Ferritin AST Lactate Dehydrogenase Troponin T 0.882 H* C-Reactive Protein NT-Pro-B Natriuret Pep Albumin Triglycerides 292 H HDL Cholesterol 23 L 02/14/21 02/14/21 02/14/21 20:21 23:11 23:20 WBC RBC Hct MCV MCH MCHC RDW Lymph % (Auto) Lymph # (Auto) Seg Neutrophils % Seg Neuts % (Manual) Lymphocytes % (Manual) Seg Neutrophils # Seg Neutrophils # Man Lymphocytes # (Manual) PT INR D-Dimer Sodium Potassium Chloride Carbon Dioxide BUN Creatinine Glucose POC Glucose 562 H 422 H Magnesium Ferritin AST Lactate Dehydrogenase Troponin T 0.892 H* C-Reactive Protein NT-Pro-B Natriuret Pep Albumin Triglycerides HDL Cholesterol 02/15/21 02/15/21 02/15/21 03:55 03:55 05:29 WBC RBC 5.17 H Hct MCV 77 L MCH 26 L MCHC RDW 15.8 H Lymph % (Auto) 4.9 L Lymph # (Auto) 0.5 L Seg Neutrophils % 89.2 H Seg Neuts % (Manual) Lymphocytes % (Manual) Seg Neutrophils # 8.4 H Seg Neutrophils # Man Lymphocytes # (Manual) PT INR D-Dimer Sodium 136 L Potassium Chloride 97.3 L Carbon Dioxide 18 L BUN 33 H Creatinine Glucose 402 H POC Glucose 345 H Magnesium Ferritin AST 46 H Lactate Dehydrogenase Troponin T 0.992 H* C-Reactive Protein NT-Pro-B Natriuret Pep Albumin 3.0 L Triglycerides HDL Cholesterol 02/15/21 02/15/21 02/15/21 08:38 08:38 08:38 WBC RBC Hct MCV 75 L MCH 26 L MCHC 35 H RDW 16.2 H Lymph % (Auto) Lymph # (Auto) Seg Neutrophils % Seg Neuts % (Manual) Lymphocytes % (Manual) Seg Neutrophils # Seg Neutrophils # Man Lymphocytes # (Manual) PT INR D-Dimer Sodium 135 L Potassium Chloride Carbon Dioxide 19 L BUN 31 H Creatinine Glucose 360 H POC Glucose Magnesium 2.50 H Ferritin AST Lactate Dehydrogenase Troponin T C-Reactive Protein NT-Pro-B Natriuret Pep 4086 H Albumin Triglycerides HDL Cholesterol 02/15/21 02/15/21 02/15/21 11:15 17:28 18:20 WBC RBC Hct MCV MCH MCHC RDW Lymph % (Auto) Lymph # (Auto) Seg Neutrophils % Seg Neuts % (Manual) Lymphocytes % (Manual) Seg Neutrophils # Seg Neutrophils # Man Lymphocytes # (Manual) PT INR D-Dimer > 77860 H Sodium Potassium Chloride Carbon Dioxide BUN Creatinine Glucose POC Glucose 317 H 311 H Magnesium Ferritin AST Lactate Dehydrogenase Troponin T C-Reactive Protein NT-Pro-B Natriuret Pep Albumin Triglycerides HDL Cholesterol 02/15/21 02/15/21 02/15/21 18:20 18:20 18:20 WBC RBC Hct MCV MCH MCHC RDW Lymph % (Auto) Lymph # (Auto) Seg Neutrophils % Seg Neuts % (Manual) Lymphocytes % (Manual) Seg Neutrophils # Seg Neutrophils # Man Lymphocytes # (Manual) PT 15.8 H INR 1.20 H D-Dimer Sodium Potassium Chloride Carbon Dioxide BUN Creatinine Glucose POC Glucose Magnesium Ferritin 837.7 H AST Lactate Dehydrogenase 766 H Troponin T C-Reactive Protein 21.50 H NT-Pro-B Natriuret Pep Albumin Triglycerides HDL Cholesterol 02/15/21 02/16/21 02/16/21 23:45 02:44 02:44 WBC RBC Hct MCV 77 L MCH 26 L MCHC RDW 16.0 H Lymph % (Auto) Lymph # (Auto) Seg Neutrophils % Seg Neuts % (Manual) Lymphocytes % (Manual) Seg Neutrophils # Seg Neutrophils # Man Lymphocytes # (Manual) PT INR D-Dimer Sodium Potassium Chloride Carbon Dioxide BUN 27 H Creatinine Glucose 269 H POC Glucose 203 H Magnesium Ferritin AST Lactate Dehydrogenase Troponin T C-Reactive Protein NT-Pro-B Natriuret Pep Albumin Triglycerides HDL Cholesterol 02/16/21 02/16/21 05:47 11:50 WBC RBC Hct MCV MCH MCHC RDW Lymph % (Auto) Lymph # (Auto) Seg Neutrophils % Seg Neuts % (Manual) Lymphocytes % (Manual) Seg Neutrophils # Seg Neutrophils # Man Lymphocytes # (Manual) PT INR D-Dimer Sodium Potassium Chloride Carbon Dioxide BUN Creatinine Glucose POC Glucose 275 H 251 H Magnesium Ferritin AST Lactate Dehydrogenase Troponin T C-Reactive Protein NT-Pro-B Natriuret Pep Albumin Triglycerides HDL Cholesterol
--- NOTE | 2021-02-16 15:15 | Progress Note ---
Assessment and Plan Assessment and plan: 55-year-old female with PmHx of HTN, uterine fibroids and ex-smoker admitted for acute right MCA CVA and STEMI s/p PCI in RCA, now with acute respiratory distress requiring continuous Bipap. Hospital Course to date: 02/16/21- Patient AAOX4, with slurred speech and Lt. sided weakness. MRI/MRA brain pending. Remains on continuous Bipap, failed optiflow trial overnight. Bilateral infiltrate noted on today CXR additional lasix was adminstered to optimize Respiratory status, However was D/C due to marginal BP concern for Hypoperfusion. Will reassess in the Am. Plan to wean off Bipap as tolerated. Patient has been NPO due to continuous Bipap. When patient is off bipap nurse to complete bedside swallow screen, if fail will place NGT so pateint can received PO meds. Low grade temp today, TMAX 101.2 in last 24hrs, Bcult pending, on IV abx, ceftriaxone and azithromycin. COVID swab result pending, ID on the case rec to start dexamethasone 6 mg IV/p.o. daily for 10 days. #Neuro: Acute right MCA CVA - 02/13/21- CT head shows microvascular angiopathy, decreased attenuation along the posterior right frontal subcortical region, no acute intracranial hemorrhage - 02/13/2021- CTA head shows decreased attenuation along the posterior right frontal lobe, no CT evidence of significant stenosis involving proximal cerebral branches particularly the proximal right MCA - 02/13/21- CTA neck shows mild atherosclerotic calcification involving the proximal internal carotid arteries bilaterally without significant stenosis - MRI brain and MRA brain and neck pending - Per EMR intial NIH was 9 - Not candidate for any intervention- out of the time window - Aspirin, Plavix, & Lipitor ordered. PO meds has been on hold due patient on continuous Bipap - Rectal ASA orderd. - Possible NGT insert if patient is to remain on Bipap or fail swallow screen - Prevent hypoperfusion, close monitor of blood pressure - Seizure precautions - PT/OT/ST eval - Neurology consulted, appreciate recommendations #CV: STEMI s/p PCI in RCA, h/o HTN #Rt. Ventricle Thrombus - 02/13/2021 Echo: EF 55%, mild concentric left ventricular Hypertrophy,suspected thrombus in right ventricle - Heparin protocol initiated - On Statin, beta-silas, Plavix and aspirin - X1 dose rectal ASA today- Patient still NPO - SBP in the 110/120s. Prevent hypoperfusion, close monitoring of blood pressure - proBNP:4086. Additional lasix today to optimize Respiratory status, However was D/C due to marginal BP concern for Hypoperfusion. Will reassess in the Am - Strict I&O #Respiratory: Acute hypoxic respiratory possibly due to COVID; COVID PUI - On Continuos BiPAP- 07/01, 70% FiO2 - Failed optiflow trial overnight - Bilateral infiltrate appreciate from this am CXR - Elevated inflam. makers: DDimer>[id number], Ferrintin 837.7, LDH 766, CRP 21.50 - proBNP:4086. Additional lasix today to optimize Respiratory status, However was D/C due to marginal BP concern for Hypoperfusion. Will reassess in the Am - COVID swab pending - Continue to monitor SPO2 wean Bipap off to HFNC as tolerated for SPO2 above 95% - Repeat CXR in the am. AM labs ordered - pulmo/CCM consulted, appreciate recommendations #GI: NAP - Remains NPO due to continuous Bipap - Once off bipap nurse to complete bedside swallow screen. - If patient fails bedside swallow, Will place NGT so patient can receive antiplatelets - Speech eval pending #: Acute kidney injury - improving - Initial cr. 1.5. Creatinine downtrending1.1 today - No longer on IVFluid due to Iglesia infiltrate/fluif overload on CXR - proBNP:4086. Additional lasix today to optimize Respiratory status, However was D/C due to marginal BP concern for Hypoperfusion. Will reassess in the Am - Continue to monitor renal function. Am labs ordered - Consider nephrology consult if kidney function worsen - Strict I&Os, purewick in place #ID: acute sepsis 2/2 STEMI vs Iglesia PNA Vs COVID PNA - Bilateral infiltrate appreciate from this am CXR - TMAX 101.2, no leukocytosis WBC 8.1 - Elevated inflam. makers: DDimer>[id number], Ferrintin 837.7, LDH 766, CRP 21.50 - COVID swab pending, 02/16 BcultX2 pending - Procal pending - Currently on ceftriaxone and azithromycin X5days - ID on the case. Appreciate recs " if COVID + start dexamethasone 6 mg IV/p.o. daily for 10 days" - Contact/droplet precautions - AM labs ordered #Heme: Anemia - Hgb 12.3, MCV 77, MCH 26 - On heparin gtt per protocol, ASA and plavix - Monitor for s/s of bleeding - Bilateral SCDs for VTE proph - Monitor H&H and plts. AM labs ordered #Endo: Hyperglycemia -Hemoglobin A1c pending -SSI and Lantus SUBQ The high probability of a clinically significant, sudden or life threatening deterioration of the [pulmonary, neuro, cardiac, ID] system(s) required my full and direct attention, intervention and personal management. The aggregate critical care time was [60] minutes. This time is in addition to time spent performing reported procedures but includes the following: [x] Data Review and interpretation [x] Patient assessment and monitoring of vital signs [x] Documentation [x] Medication orders and management I saw and evaluated the patient. Discussed with the nurse practitioner and agree with their findings and plan as documented in this note. Disposition Plan: ICU Total Time Spent with Patient (Minutes): 60 History Interval history: Patient was seen and examined. Awake and AAO, with sign. slurred speech, Lt. sided weakness noted. Remains on continuos Bipap, RN reported that she failed optiflow trial overnight. Patient stated she is feeling better than yesterday. Hospitalist Physical - Constitutional Vitals: Temp Pulse Resp BP Pulse Ox 98.8 F 84 29 H 119/77 96 02/16/21 11:58 02/16/21 09:20 02/16/21 09:20 02/16/21 09:20 02/16/21 14:27 General appearance: Present: no acute distress, mild distress, well-nourished - EENT Eyes: Present: PERRL, EOM intact ENT: hearing intact - Respiratory Respiratory effort: normal Respiratory: bilateral: diminished - Cardiovascular Rhythm: regular Heart Sounds: Present: S1 & S2 - Extremities Extremities: pulses intact, pulses symmetrical, No edema Peripheral Pulses: within normal limits - Abdominal General gastrointestinal: soft, non-tender, normal bowel sounds - Integumentary Integumentary: Present: clear, warm, dry - Psychiatric Psychiatric: appropriate mood/affect, intact judgment & insight - Neurologic Neurologic: CNII-XII intact, moves all extremities, other (Lt. sided weakness) - Allied Health Allied health notes reviewed: nursing HEART Score - HEART Score Troponin: Troponin T 0.992 ng/mL (0.00-0.029) H* 02/15/21 03:55 Results - Labs CBC & Chem 7: 02/16/21 02:44 02/16/21 02:44 Labs: Laboratory Last Values WBC 8.1 K/mm3 (4.5-11.0) 02/16/21 02:44 RBC 4.78 M/mm3 (3.65-5.03) 02/16/21 02:44 Hgb 12.3 gm/dl (10.1-14.3) 02/16/21 02:44 Hct 36.6 % (30.3-42.9) 02/16/21 02:44 MCV 77 fl (79-97) L 02/16/21 02:44 MCH 26 pg (28-32) L 02/16/21 02:44 MCHC 34 % (30-34) 02/16/21 02:44 RDW 16.0 % (13.2-15.2) H 02/16/21 02:44 Plt Count 163 K/mm3 (140-440) 02/16/21 02:44 Lymph % (Auto) 4.9 % (13.4-35.0) L 02/15/21 03:55 [place] % (Auto) 5.3 % (0.0-7.3) 02/15/21 03:55 Eos % (Auto) 0.5 % (0.0-4.3) 02/15/21 03:55 Baso % (Auto) 0.1 % (0.0-1.8) 02/15/21 03:55 Lymph # (Auto) 0.5 K/mm3 (1.2-5.4) L 02/15/21 03:55 [place] # (Auto) 0.5 K/mm3 (0.0-0.8) 02/15/21 03:55 Eos # (Auto) 0.1 K/mm3 (0.0-0.4) 02/15/21 03:55 Baso # (Auto) 0.0 K/mm3 (0.0-0.1) 02/15/21 03:55 Add Manual Diff Complete 02/14/21 20:21 Total Counted 100 02/14/21 20:21 Seg Neutrophils % 89.2 % (40.0-70.0) H 02/15/21 03:55 Seg Neuts % (Manual) 96.0 % (40.0-70.0) H 02/14/21 20:21 Lymphocytes % (Manual) 3.0 % (13.4-35.0) L 02/14/21 20:21 Monocytes % (Manual) 1.0 % (0.0-7.3) 02/14/21 20:21 Nucleated RBC % Not Reportable 02/14/21 20:21 Seg Neutrophils # 8.4 K/mm3 (1.8-7.7) H 02/15/21 03:55 Seg Neutrophils # Man 15.0 K/mm3 (1.8-7.7) H 02/14/21 20:21 Band Neutrophils # 0.0 K/mm3 02/14/21 20:21 Lymphocytes # (Manual) 0.5 K/mm3 (1.2-5.4) L 02/14/21 20:21 Abs React Lymphs (Man) 0.0 K/mm3 02/14/21 20:21 Monocytes # (Manual) 0.2 K/mm3 (0.0-0.8) 02/14/21 20:21 Eosinophils # (Manual) 0.0 K/mm3 (0.0-0.4) 02/14/21 20:21 Basophils # (Manual) 0.0 K/mm3 (0.0-0.1) 02/14/21 20:21 Metamyelocytes # 0.0 K/mm3 02/14/21 20:21 Myelocytes # 0.0 K/mm3 02/14/21 20:21 Promyelocytes # 0.0 K/mm3 02/14/21 20:21 Blast Cells # 0.0 K/mm3 02/14/21 20:21 WBC Morphology Not Reportable 02/14/21 20:21 Hypersegmented Neuts Not Reportable 02/14/21 20:21 Hyposegmented Neuts Not Reportable 02/14/21 20:21 Hypogranular Neuts Not Reportable 02/14/21 20:21 Smudge Cells Not Reportable 02/14/21 20:21 Toxic Granulation Not Reportable 02/14/21 20:21 Toxic Vacuolation Not Reportable 02/14/21 20:21 Dohle Bodies Not Reportable 02/14/21 20:21 Pelger-Huet Anomaly Not Reportable 02/14/21 20:21 Aba Rods Not Reportable 02/14/21 20:21 Platelet Estimate Consistent w auto 02/14/21 20:21 Clumped Platelets Not Reportable 02/14/21 20:21 Plt Clumps, EDTA Not Reportable 02/14/21 20:21 Large Platelets Not Reportable 02/14/21 20:21 Giant Platelets Not Reportable 02/14/21 20:21 Platelet Satelliting Not Reportable 02/14/21 20:21 Plt Morphology Comment Not Reportable 02/14/21 20:21 RBC Morphology Not Reportable 02/14/21 20:21 Dimorphic RBCs Not Reportable 02/14/21 20:21 Polychromasia Not Reportable 02/14/21 20:21 Hypochromasia 1+ 02/14/21 20:21 Poikilocytosis Not Reportable 02/14/21 20:21 Anisocytosis Few 02/14/21 20:21 Microcytosis Not Reportable 02/14/21 20:21 Macrocytosis Not Reportable 02/14/21 20:21 Spherocytes Not Reportable 02/14/21 20:21 Pappenheimer Bodies Not Reportable 02/14/21 20:21 Sickle Cells Not Reportable 02/14/21 20:21 Target Cells Not Reportable 02/14/21 20:21 Tear Drop Cells Not Reportable 02/14/21 20:21 Ovalocytes Not Reportable 02/14/21 20:21 Helmet Cells Not Reportable 02/14/21 20:21 [place] Bodies Not Reportable 02/14/21 20:21 [place] Rings Not Reportable 02/14/21 20:21 [place] Cells Not Reportable 02/14/21 20:21 Bite Cells Not Reportable 02/14/21 20:21 Crenated Cell Not Reportable 02/14/21 20:21 Elliptocytes Not Reportable 02/14/21 20:21 Acanthocytes (Spur) Not Reportable 02/14/21 20:21 Rouleaux Not Reportable 02/14/21 20:21 Hemoglobin C Crystals Not Reportable 02/14/21 20:21 Schistocytes Not Reportable 02/14/21 20:21 Malaria parasites Not Reportable 02/14/21 20:21 Alberto Bodies Not Reportable 02/14/21 20:21 Hem Pathologist Commnt No 02/14/21 20:21 PT 15.8 Sec. (12.2-14.9) H 02/15/21 18:20 INR 1.20 (0.87-1.13) H 02/15/21 18:20 APTT 30.2 Sec. (24.2-36.6) 02/15/21 18:20 Thrombin Time 17.2 Sec. (15.1-19.6) 02/14/21 20:21 D-Dimer > 30546 ng/mlDDU (0-234) H 02/15/21 18:20 Sodium 138 mmol/L (137-145) 02/16/21 02:44 Potassium 3.9 mmol/L (3.6-5.0) 02/16/21 02:44 Chloride 100.6 mmol/L (98-107) 02/16/21 02:44 Carbon Dioxide 23 mmol/L (22-30) 02/16/21 02:44 Anion Gap 18 mmol/L 02/16/21 02:44 BUN 27 mg/dL (7-17) H 02/16/21 02:44 Creatinine 1.1 mg/dL (0.6-1.2) 02/16/21 02:44 Estimated GFR > 60 ml/min 02/16/21 02:44 BUN/Creatinine Ratio 25 % 02/16/21 02:44 Glucose 269 mg/dL (65-100) H 02/16/21 02:44 POC Glucose 251 mg/dL (70-105) H 02/16/21 11:50 Calcium 8.9 mg/dL (8.4-10.2) 02/16/21 02:44 Phosphorus 3.20 mg/dL (2.5-4.5) 02/15/21 08:38 Magnesium 2.30 mg/dL (1.7-2.3) 02/16/21 02:44 Ferritin 837.7 ng/mL (10.0-200.0) H 02/15/21 18:20 Total Bilirubin 0.20 mg/dL (0.1-1.2) 02/15/21 03:55 AST 46 units/L (5-40) H 02/15/21 03:55 ALT 28 units/L (7-56) 02/15/21 03:55 Alkaline Phosphatase 63 units/L (35-129) 02/15/21 03:55 Lactate Dehydrogenase 766 units/L (91-180) H 02/15/21 18:20 Troponin T 0.992 ng/mL (0.00-0.029) H* 02/15/21 03:55 C-Reactive Protein 21.50 mg/dL (0.00-1.30) H 02/15/21 18:20 NT-Pro-B Natriuret Pep 4086 pg/mL (0-900) H 02/15/21 08:38 Total Protein 6.4 g/dL (6.3-8.2) 02/15/21 03:55 Albumin 3.0 g/dL (3.9-5) L 02/15/21 03:55 Albumin/Globulin Ratio 0.9 % 02/15/21 03:55 Triglycerides 292 mg/dL (2-149) H 02/14/21 20:21 Cholesterol 199 mg/dL (50-199) 02/14/21 20:21 LDL Cholesterol Direct 105 mg/dL (50-130) 02/14/21 20:21 HDL Cholesterol 23 mg/dL (40-59) L 02/14/21 20:21 Cholesterol/HDL Ratio 8.65 % 02/14/21 20:21 Blood Type A POSITIVE 02/14/21 20:21 Antibody Screen Negative 02/14/21 20:21 Microbiology: Microbiology 02/16/21 07:40 Peripheral/Venous Blood Culture - Preliminary Culture in Progress 02/16/21 02:44 Peripheral/Venous Blood Culture - Preliminary Culture in Progress Taylor/IV: Voiding Method External Female Catheter Active Medications - Current Medications Current Medications: Generic Name Dose Route Start Last Admin Trade Name Freq PRN Reason Stop Dose Admin Acetaminophen 650 mg 02/14/21 21:54 Acetaminophen 325 Mg Tab PO Q4H PRN Pain MILD(1-3)/Fever >100.5/BEEBE Acetaminophen 650 mg 02/16/21 01:00 02/16/21 02:09 Acetaminophen 650 Mg Rect Supp [place] 650 mg Q6H PRN Administration Pain, Mild (1-3) Hydrocodone Bitart/Acetaminophen 1 each 02/14/21 21:57 Hydrocodone/Acetaminophen 5-325 Mg Tab PO Q6H PRN Pain, Moderate (4-6) Albuterol 2.5 mg 02/14/21 21:54 Albuterol 2.5 Mg/3 Ml Nebu IH Q4HRT PRN Shortness Of Breath Aspirin 81 mg 02/16/21 12:00 02/16/21 12:43 Aspirin 81 Mg Tab Chew PO 81 mg QDAY KARYN Administration Atorvastatin Calcium 80 mg 02/15/21 22:00 02/15/21 23:56 Atorvastatin 40 Mg Tab PO Not Given QHS KARYN Clopidogrel Bisulfate 75 mg 02/15/21 10:00 02/16/21 12:43 Clopidogrel 75 Mg Tab PO 75 mg QDAY KARYN Administration Dextrose 0 ml 02/14/21 21:54 Dextrose 50% In Water (25gm) 50 Ml Syringe IV Q30MIN PRN Hypoglycemia Protocol Docusate Sodium 100 mg 02/14/21 22:04 Docusate Sodium 100 Mg Cap PO DAILY PRN Constip unreliev by MOM/or NPO Famotidine 20 mg 02/14/21 22:00 02/16/21 10:59 Famotidine 20 Mg/2 Ml Inj IV 20 mg BID KARYN Administration Ferrous Sulfate 308 mg 02/16/21 22:00 Ferrous Sulfate 308 Mg (62mg Elemental Iron) / 7 Ml Elixir FEEDTUBE BID KARYN Furosemide 40 mg 02/16/21 18:00 Furosemide 40 Mg/4 Ml Inj IV 0600,1800 [facility] Heparin Sodium (Porcine) 4,200 unit 02/15/21 13:58 Heparin 10,000 Units/10 Ml Vial 40 unit/kg (4200 unit) IV Q6H PRN Anti-Xa Assay < 0.1 units/ml Hydromorphone HCl 0.5 mg 02/14/21 21:54 Hydromorphone 1 Mg/1 Ml Inj IV Q3H PRN Pain , Severe (7-10) Ceftriaxone Sodium 2 gm in 100 mls @ 200 mls/hr 02/14/21 23:00 02/16/21 10:59 Rocephin/Ns 2 Gm/100 Ml IV 02/18/21 10:29 200 mls/hr Q24HR KARYN Administration Protocol Heparin Sodium/Sodium Chloride 25,000 unit in 500 mls @ 20 mls/hr 02/15/21 14:00 02/16/21 09:20 Heparin/ 0.45% Nacl-25,000 Unit/500 Ml IV 1,000 units/hr TITRATE KARYN 20 mls/hr Administration Protocol 1,000 UNITS/HR Azithromycin 500 mg in 250 mls @ 250 mls/hr 02/16/21 04:00 02/16/21 04:35 Zithromax/Ns IV 02/20/21 04:59 250 mls/hr Q24H KARYN Administration Insulin Glargine 5 units 02/15/21 22:00 02/15/21 23:55 Insulin Glargine 100 Units/Ml SUB-Q Not Given QHS [facility] Insulin Human Lispro 0 unit 02/15/21 00:00 02/16/21 12:42 Insulin Lispro 100 Unit/Ml SUB-Q 6 unit Q6HR KARYN Administration Protocol Metoprolol Tartrate 5 mg 02/16/21 06:00 02/16/21 06:06 Metoprolol Tartrate 5 Mg/5 Ml Inj IV 5 mg Q8HR KARYN Administration Morphine Sulfate 2 mg 02/14/21 21:54 Morphine 2 Mg/1 Ml Inj IV Q4H PRN Pain, Moderate (4-6) Ondansetron HCl 4 mg 02/14/21 21:54 02/15/21 08:12 Ondansetron 4 Mg/2 Ml Inj IV 4 mg Q8H PRN Administration Nausea And Vomiting Sodium Chloride 10 ml 02/14/21 22:00 02/16/21 11:00 Sodium Chloride 0.9% 10 Ml Flush Syringe IV 10 ml BID KARYN Administration Sodium Chloride 10 ml 02/14/21 21:54 Sodium Chloride 0.9% 10 Ml Flush Syringe IV PRN PRN LINE FLUSH Sodium Chloride 10 ml 02/14/21 21:54 Sodium Chloride 0.9% 10 Ml Flush Syringe IV PRN PRN LINE FLUSH Nutrition/Malnutrition Assess - Dietary Evaluation Nutrition/Malnutrition Findings: Nutrition Notes Start: 02/15/21 12:03 Freq: Status: Active Protocol: Document 02/15/21 12:03 (Rec: 02/15/21 12:15 [email or web address]) Nutrition Notes Initial or Follow up Brief Note Current Diagnosis Diabetes,Hypertension, Respiratory Failure,Stroke Other Pertinent Diagnosis hyperglycemia, STEMI Labs/Tests Na 136 BUN 33 BG 402 Pertinent Medications Insulin Height 5 ft 4 in Weight 104.3 kg [place] Body Weight (kg) 54.54 BMI 39.4 Weight Status Obese Subjective/Other Information RD consult for diet education. Pt currently NPO and unsure of covid 19 status. Pt on Bipap. Current % PO Negligible Minimum of two criteria No Is patient on ventilator? No Is Patient Ambulatory and/or Out of Bed No REE-([facility]-confined to bed) [phone] Calculation Used for Recommendations [facility] Nutrition Intervention Follow-Up By: 02/16/21 Additional Comments Diet order/intake/ speech assessment
--- NOTE | 2021-02-16 15:35 | Magnetic Resonance Report ---
MRI BRAIN WITHOUT CONTRAST, MRA HEAD WITHOUT CONTRAST INDICATION / CLINICAL INFORMATION: stroke. TECHNIQUE: Multiplanar, multi sequential MRI images of the brain. Routine MRA of the head is performed. 3-D/MIP reformats postprocessed. Percentage stenosis is determined by direct quantitative measurements of di stal internal carotid artery diameter compared with normal reference segments or by criteria similar to NASCET where applicable. COMPARISON: None available. FINDINGS: MR BRAIN: BRAIN / INTRACRANIAL CONTENTS: There are multiple small foci of recent infarct in the cerebellar ru spheres. Several scattered foci of recent infarct are also seen in the right posterior thalamus and b ilateral occipital white matter. There is a small recent infarct in the right frontoparietal convexit y and in the left parietal mid convexity. There is no hemorrhage or adverse mass effect. CRANIOCERVICAL JUNCTION: No significant abnormality. VASCULAR FLOW-VOIDS: No significant abnormality. ORBITS: No significant abnormality of visualized orbits. SINUSES / MASTOIDS: No significant abnormality of visualized sinuses and mastoid air cells. ADDITIONAL FINDINGS: None. MRA HEAD: Intracranial vertebral arteries: No significant abnormality. Basilar artery: No significant abnormality. Posterior cerebral arteries: No significant abnormality. Intracranial internal carotid arteries: No significant abnormality. Anterior cerebral arteries: No significant abnormality. Middle cerebral arteries: No significant abnormality. Additional findings: None. IMPRESSION: 1. Several scattered foci recent infarct in both the cerebellum and cerebral hemispheres as described above. No hemorrhage or adverse mass effect. Findings likely indicate embolic phenomenon. 2. No significant stenosis or large vessel occlusion on the MRA head. Signer Name: Gino Ayon MD Signed: 02/16/2021 3:31 PM Workstation Name: [id number]
[2021-02-16] MEDS ORDERED: FUROSEMIDE 40 MG/4 ML INJ IV SCH (18:00)
[2021-02-16] MEDS: HYDROmorphone 1 MG/1 ML INJ IV PRN (21:40)
[2021-02-16] MEDS: MELATONIN 5 MG TAB PO PRN (22:13)
[2021-02-16] MEDS: FERROUS GLUCONATE 324 MG TAB PO SCH (22:14)
[2021-02-16] MEDS: INSULIN GLARGINE 100 UNITS/ML SUB-Q SCH (22:15)
[2021-02-16] MEDS: FERROUS SULFATE 308 MG (62mg Elemental Iron) / 7 ML ELIXIR FEEDTUBE SCH (23:00)
[2021-02-17] MEDS: INSULIN LISPRO 100 UNIT/ML SUB-Q SCH ×4 (00:55→17:30)
[2021-02-17 02:45] LABS: Hematocrit 38.4 % (30.3-42.9); Hemoglobin 12.9 gm/dl (10.1-14.3)
[2021-02-17] MEDS: AZITHROMYCIN/NS 500 MG/250 ML 500 MG/250 ML BAG IV SCH (04:17)
[2021-02-17] MEDS: dexAMETHasone 4 MG/ML VIAL IV SCH (09:34)
[2021-02-17] MEDS: FAMOTIDINE 20 MG/2 ML INJ IV SCH ×2 (09:34→21:37)
[2021-02-17] MEDS: cefTRIAXone/NS 2 GM/100 ML 2 GM/100 ML BAG IV SCH (09:34)
[2021-02-17] MEDS: CLOPIDOGREL 75 MG TAB PO SCH (09:35)
[2021-02-17] MEDS: ASPIRIN 81 MG TAB CHEW PO SCH (09:35)
[2021-02-17] MEDS: HEPARIN/ 0.45% NACL DRIP 25,000 UNIT/500 ML BAG IV SCH (09:41)
[2021-02-17] MEDS ORDERED: METOPROLOL TARTRATE 25 MG TAB PO SCH (10:00)
[2021-02-17] MEDS ORDERED: METOPROLOL TARTRATE 50 MG TAB PO SCH (10:00)
[2021-02-17] MEDS: FERROUS SULFATE 308 MG (62mg Elemental Iron) / 7 ML ELIXIR FEEDTUBE SCH ×2 (10:31→21:35)
[2021-02-17] MEDS ORDERED: REMDESIVIR 200 MG in SODIUM CHLORIDE 0.9% 250ML 250 ML IV ONE (11:30)
--- NOTE | 2021-02-17 11:31 | Progress Note ---
Assessment and Plan Cultures: 02/16/2021 blood culture: no growth SARS CoV2 PCR positive Assessment: 55-year-old female with history of diabetes mellitus, admitted on 02/14/2021 secondary to left-sided weakness, left facial droop and dysarthria for unknown amount of time likely 12-24h with a previous 2-week history of flulike symptoms: #Acute sepsis: likely secondary to bilateral pneumonia +/- STEMI +/- CVA. #Bilateral pneumonia: secondary to COVID. CXR with bilateral pneumonia. CRP 21.5, ferritin 837, LDH 766, D-dimer > 10K. #Acute hypoxemic respiratory failure: requiring BiPAP/HFNC #Elevated LFTs: from sepsis/COVID #ADAM: from sepsis/ COVID #STEMI: s/p heart cath with stent placement in the RCA. #Possible CVA: Patient was out of window of TPA per neuro. Recommendations: -continue remdesivir x 5 days -continue dexamethasone IV/PO daily for 10 days -f/u procalcitonin, if low, stop abx. for now, continue ceftriaxone and azithromycin x total 5 days -Meets criteria for Actemra, discussed with pharmacy, order placed -monitor CRP, d-dimer, anticoagulation per protocol Simin Engel MD, FACP [facility] O: [phone] F: [phone] Subjective Date of service: 02/17/21 Principal diagnosis: CVA with left side weakness ,elevated inflammatory markers Interval history: Low-grade fever yesterday, none today. COVID-19 PCR came back positive. Remains on high flow nasal cannula. Initiated on remdesivir and steroids. Objective - Exam Narrative Exam: Physical Exam (reviewed in chart to minimize risk of transmission) Constitutional: deferred Head, Ears, Nose: deferred Eyes: deferred Neck: deferred Oral: deferred Cardiovascular: deferred Respiratory: deferred GI: deferred Musculoskeletal: deferred Skin: deferred Hem/Lymphatic: deferred Psych: deferred Neurological: deferred - Constitutional Vitals: Vital Signs Temp Pulse Resp BP Pulse Ox 98 F 100 H 31 H 143/103 94 02/17/21 08:00 02/17/21 09:35 02/17/21 06:45 02/17/21 09:35 02/17/21 08:28 Temperature -Last 24 Hours Temperature 98 F Temperature 98.5 F Temperature 98.2 F Temperature 100.1 F Temperature 100.1 F Temperature 98.8 F - Labs CBC & Chem 7: 02/17/21 02:23 02/16/21 02:44 Labs: Abnormal lab results 02/16/21 02/16/21 02/16/21 Range/Units 11:50 15:00 18:23 Heparin Anti-Xa Level < 0.10 L (0.3-0.7) U.I./ml POC Glucose 251 H 237 H (70-105) mg/dL Coronavirus (PCR) (Negative) 02/16/21 02/16/21 02/16/21 Range/Units 23:30 23:57 Unknown Heparin Anti-Xa Level < 0.10 L (0.3-0.7) U.I./ml POC Glucose 249 H (70-105) mg/dL Coronavirus (PCR) Positive A (Negative) 02/17/21 02/17/21 Range/Units 05:25 06:18 Heparin Anti-Xa Level (0.3-0.7) U.I./ml POC Glucose 238 H 229 H (70-105) mg/dL Coronavirus (PCR) (Negative)
[2021-02-17] MEDS: SODIUM CHLORIDE 0.9% 50 ML IVPB IV SCH ×2 (11:50→21:00)
[2021-02-17] MEDS ORDERED: TOCILIZUMAB 800 MG in SODIUM CHLORIDE 0.9% 100 ML IV ONE (12:01)
[2021-02-17] MEDS ORDERED: SIMPLE SYRUP 15 ML FEEDTUBE PRN ×2 (12:34)
[2021-02-17] MEDS ORDERED: SODIUM BICARBONATE 325 MG TAB FEEDTUBE PRN (12:34)
[2021-02-17] MEDS ORDERED: LIPASE 10,500/PROTEASE 25,000/AMYLASE 43,750 (UNITS) DR CAP FEEDTUBE PRN (12:34)
--- NOTE | 2021-02-17 12:42 | Progress Note ---
Assessment and Plan Assessment and Plan VTE prophylaxis?: Chemical Plan of care discussed with patient/family: Yes - Patient Problems # Acute rightCVA with left side weakness -NIH inital is #9 -- today is #5 -CT brain and CTA Brain Nd Neck are remarkable for attenuation in right posterior frontal frontal {quality of CT brain is border line } -started on ASA and Plavix -Lipitor 80 mg -LDL#105 -MRI brain is remarkable for multi embolic infarct Bilateral cerebrum and cerebellum more noted right cortical involvment -NO objection to have IV heparine -- hypercoagulable stat related to COVID -19 can not be excluded--- need to start AC po when possible -Echo is with EF#55 and possible right ventricular thrombus ? -Cardiac monitoring -PT/ST evaluate -Seizure precaution # STEMI (ST elevation myocardial infarction) -Admit the patient to the ICU. -Aspirin 81 mg p.o. daily. - Plavix 75 mg p.o. daily. - Lipitor 80 mg p.o. daily. - Patient is status post heart cath with drug-eluting stent on ICA. - Cardiology evaluation. - Echocardiogram. Heparin 5000 units subcu every 8 hours critical care evaluation. #Acute URI -We will send the Covid PCR test. - Rocephin 2 g IV daily and Zithromax to 50 mg p.o. daily. - Follow the Covid PCR and Covid inflammatory marker. # Diabetes - Humalog sliding scale Accu-Chek every 6 hours with moderate dose coverage. - Diabetic education -A1C (5) DVT prophylaxis -Heparin 5000 units subcu every 8 hours for DVT prophylaxis. -Pepcid 20 mg IV every 12 hours for GI prophylaxis. - Patient is a full code. - prognosis is guarded PLAN 1- Manage COVID infection as per ID 2- No objection for AC po 3- cardiology follow as out pt. 4- PT/ST and possible rehabilitation will follow as needed Subjective Date of service: 02/17/21 Principal diagnosis: CVA with left side weakness ,elevated inflammatory markers Interval history: status is same she is with left side weakness U>L COVID-19 PCR is positive all inflammatory markers are elevated Echo is suggestive of right ventricle thrombus Objective - Vital Sign Vital Signs - 12hr 02/17/21 02/17/21 02/17/21 00:45 01:00 01:15 Temperature Pulse Rate 94 H 96 H 96 H Pulse Rate [ From Monitor] Respiratory 28 H 21 24 Rate Blood Pressure 119/73 124/92 124/92 O2 Sat by Pulse 95 85 Oximetry 02/17/21 02/17/21 02/17/21 01:30 01:45 02:00 Temperature Pulse Rate 95 H 92 H 95 H Pulse Rate [ From Monitor] Respiratory 24 29 H 25 H Rate Blood Pressure 132/88 132/88 120/86 O2 Sat by Pulse 95 95 Oximetry 02/17/21 02/17/21 02/17/21 02:15 02:30 02:45 Temperature Pulse Rate 94 H 94 H 93 H Pulse Rate [ From Monitor] Respiratory 25 H 25 H 29 H Rate Blood Pressure 120/86 123/89 123/89 O2 Sat by Pulse 96 91 94 Oximetry 02/17/21 02/17/21 02/17/21 03:00 03:15 03:30 Temperature Pulse Rate 95 H 95 H 100 H Pulse Rate [ From Monitor] Respiratory 28 H 29 H 20 Rate Blood Pressure 124/83 124/83 130/88 O2 Sat by Pulse 92 Oximetry 02/17/21 02/17/21 02/17/21 03:45 04:00 04:15 Temperature 98.5 F Pulse Rate 100 H 91 H 90 Pulse Rate [ 90 From Monitor] Respiratory 24 20 27 H Rate Blood Pressure 130/88 121/84 121/84 O2 Sat by Pulse 93 94 94 Oximetry 02/17/21 02/17/21 02/17/21 04:30 04:45 05:00 Temperature Pulse Rate 96 H 91 H 98 H Pulse Rate [ From Monitor] Respiratory 23 29 H 20 Rate Blood Pressure 115/86 121/84 134/83 O2 Sat by Pulse 81 L 94 91 Oximetry 02/17/21 02/17/21 02/17/21 05:15 05:30 05:45 Temperature Pulse Rate 96 H 95 H 94 H Pulse Rate [ From Monitor] Respiratory 28 H 28 H 21 Rate Blood Pressure 134/83 125/82 125/82 O2 Sat by Pulse 96 88 97 Oximetry 02/17/21 02/17/21 02/17/21 05:54 06:00 06:15 Temperature Pulse Rate 96 H 96 H Pulse Rate [ From Monitor] Respiratory 24 23 Rate Blood Pressure 130/90 130/90 O2 Sat by Pulse 95 94 91 Oximetry 02/17/21 02/17/21 02/17/21 06:30 06:45 07:00 Temperature Pulse Rate 95 H 93 H 100 H Pulse Rate [ From Monitor] Respiratory 27 H 31 H 19 Rate Blood Pressure 140/91 140/91 128/96 O2 Sat by Pulse 97 93 99 Oximetry 02/17/21 02/17/21 02/17/21 07:15 07:31 07:45 Temperature Pulse Rate 98 H 98 H 99 H Pulse Rate [ From Monitor] Respiratory 33 H 30 H 22 Rate Blood Pressure 130/90 143/90 143/90 O2 Sat by Pulse 92 93 97 Oximetry 02/17/21 02/17/21 02/17/21 08:00 08:15 08:28 Temperature 98 F Pulse Rate 97 H 92 H Pulse Rate [ From Monitor] Respiratory 24 27 H Rate Blood Pressure 153/100 153/100 O2 Sat by Pulse 95 97 94 Oximetry 02/17/21 02/17/21 02/17/21 08:30 08:45 09:00 Temperature Pulse Rate 94 H 101 H 99 H Pulse Rate [ From Monitor] Respiratory 27 H 32 H 29 H Rate Blood Pressure 146/90 146/90 140/86 O2 Sat by Pulse 93 95 95 Oximetry 02/17/21 02/17/21 02/17/21 09:15 09:31 09:35 Temperature Pulse Rate 100 H 96 H 100 H Pulse Rate [ From Monitor] Respiratory 28 H 36 H Rate Blood Pressure 140/86 143/103 143/103 O2 Sat by Pulse 94 97 Oximetry 02/17/21 02/17/21 02/17/21 09:45 10:00 10:15 Temperature Pulse Rate 100 H 100 H 92 H Pulse Rate [ From Monitor] Respiratory 35 H 30 H 22 Rate Blood Pressure 140/86 138/90 138/90 O2 Sat by Pulse 97 97 96 Oximetry 02/17/21 02/17/21 02/17/21 10:30 10:45 11:00 Temperature Pulse Rate 86 88 85 Pulse Rate [ From Monitor] Respiratory 23 29 H 30 H Rate Blood Pressure 122/81 122/81 126/86 O2 Sat by Pulse 97 96 95 Oximetry 02/17/21 02/17/21 02/17/21 11:15 11:30 11:45 Temperature Pulse Rate 80 83 82 Pulse Rate [ From Monitor] Respiratory 30 H 26 H 30 H Rate Blood Pressure 126/86 116/81 126/86 O2 Sat by Pulse 94 93 96 Oximetry 02/17/21 12:00 Temperature 99.8 F H Pulse Rate 85 Pulse Rate [ From Monitor] Respiratory 29 H Rate Blood Pressure 131/83 O2 Sat by Pulse 96 Oximetry - General Apperance Constitutional: comfortable - EENT EENT: PERRL, mucous membranes moist - Respiratory Respiratory: lungs clear, rhonchi - Cardiovascular Cardiovascular: regular rate, normal S1, normal S2 Extremities: no peripheral edema bilat, no clubbing, cyanosis - Gastrointestinal Gastrointestinal: normoactive bowel sounds - Integumentary Integumentary: normal - Neurologic Cranial nerve examination: other (significant left facial droop no visual deficit is noted) Detailed motor examination: other (left side weakness is slightly better upper3+/4 lower4-/5 planter is down going ) - Laboratory Findings CBC and BMP: 02/17/21 02:23 02/16/21 02:44 Abnormal Lab Findings: Abnormal Labs 02/14/21 02/14/21 02/14/21 20:21 20:21 20:21 WBC 15.6 H RBC 5.55 H Hct 43.3 H MCV 78 L MCH 26 L MCHC RDW 16.3 H Lymph % (Auto) Lymph # (Auto) Seg Neutrophils % Seg Neuts % (Manual) 96.0 H Lymphocytes % (Manual) 3.0 L Seg Neutrophils # Seg Neutrophils # Man 15.0 H Lymphocytes # (Manual) 0.5 L PT 16.7 H INR 1.30 H D-Dimer Heparin Anti-Xa Level Sodium 131 L Potassium 5.1 H Chloride 88.4 L Carbon Dioxide 20 L BUN 34 H Creatinine 1.5 H Glucose 574 H* POC Glucose Magnesium Ferritin AST Lactate Dehydrogenase Troponin T 0.882 H* C-Reactive Protein NT-Pro-B Natriuret Pep Albumin Triglycerides 292 H HDL Cholesterol 23 L Coronavirus (PCR) 02/14/21 02/14/21 02/14/21 20:21 23:11 23:20 WBC RBC Hct MCV MCH MCHC RDW Lymph % (Auto) Lymph # (Auto) Seg Neutrophils % Seg Neuts % (Manual) Lymphocytes % (Manual) Seg Neutrophils # Seg Neutrophils # Man Lymphocytes # (Manual) PT INR D-Dimer Heparin Anti-Xa Level Sodium Potassium Chloride Carbon Dioxide BUN Creatinine Glucose POC Glucose 562 H 422 H Magnesium Ferritin AST Lactate Dehydrogenase Troponin T 0.892 H* C-Reactive Protein NT-Pro-B Natriuret Pep Albumin Triglycerides HDL Cholesterol Coronavirus (PCR) 02/15/21 02/15/21 02/15/21 03:55 03:55 05:29 WBC RBC 5.17 H Hct MCV 77 L MCH 26 L MCHC RDW 15.8 H Lymph % (Auto) 4.9 L Lymph # (Auto) 0.5 L Seg Neutrophils % 89.2 H Seg Neuts % (Manual) Lymphocytes % (Manual) Seg Neutrophils # 8.4 H Seg Neutrophils # Man Lymphocytes # (Manual) PT INR D-Dimer Heparin Anti-Xa Level Sodium 136 L Potassium Chloride 97.3 L Carbon Dioxide 18 L BUN 33 H Creatinine Glucose 402 H POC Glucose 345 H Magnesium Ferritin AST 46 H Lactate Dehydrogenase Troponin T 0.992 H* C-Reactive Protein NT-Pro-B Natriuret Pep Albumin 3.0 L Triglycerides HDL Cholesterol Coronavirus (PCR) 02/15/21 02/15/21 02/15/21 08:38 08:38 08:38 WBC RBC Hct MCV 75 L MCH 26 L MCHC 35 H RDW 16.2 H Lymph % (Auto) Lymph # (Auto) Seg Neutrophils % Seg Neuts % (Manual) Lymphocytes % (Manual) Seg Neutrophils # Seg Neutrophils # Man Lymphocytes # (Manual) PT INR D-Dimer Heparin Anti-Xa Level Sodium 135 L Potassium Chloride Carbon Dioxide 19 L BUN 31 H Creatinine Glucose 360 H POC Glucose Magnesium 2.50 H Ferritin AST Lactate Dehydrogenase Troponin T C-Reactive Protein NT-Pro-B Natriuret Pep 4086 H Albumin Triglycerides HDL Cholesterol Coronavirus (PCR) 02/15/21 02/15/21 02/15/21 11:15 17:28 18:20 WBC RBC Hct MCV MCH MCHC RDW Lymph % (Auto) Lymph # (Auto) Seg Neutrophils % Seg Neuts % (Manual) Lymphocytes % (Manual) Seg Neutrophils # Seg Neutrophils # Man Lymphocytes # (Manual) PT INR D-Dimer > 97318 H Heparin Anti-Xa Level Sodium Potassium Chloride Carbon Dioxide BUN Creatinine Glucose POC Glucose 317 H 311 H Magnesium Ferritin AST Lactate Dehydrogenase Troponin T C-Reactive Protein NT-Pro-B Natriuret Pep Albumin Triglycerides HDL Cholesterol Coronavirus (PCR) 02/15/21 02/15/21 02/15/21 18:20 18:20 18:20 WBC RBC Hct MCV MCH MCHC RDW Lymph % (Auto) Lymph # (Auto) Seg Neutrophils % Seg Neuts % (Manual) Lymphocytes % (Manual) Seg Neutrophils # Seg Neutrophils # Man Lymphocytes # (Manual) PT 15.8 H INR 1.20 H D-Dimer Heparin Anti-Xa Level Sodium Potassium Chloride Carbon Dioxide BUN Creatinine Glucose POC Glucose Magnesium Ferritin 837.7 H AST Lactate Dehydrogenase 766 H Troponin T C-Reactive Protein 21.50 H NT-Pro-B Natriuret Pep Albumin Triglycerides HDL Cholesterol Coronavirus (PCR) 02/15/21 02/16/21 02/16/21 23:45 02:44 02:44 WBC RBC Hct MCV 77 L MCH 26 L MCHC RDW 16.0 H Lymph % (Auto) Lymph # (Auto) Seg Neutrophils % Seg Neuts % (Manual) Lymphocytes % (Manual) Seg Neutrophils # Seg Neutrophils # Man Lymphocytes # (Manual) PT INR D-Dimer Heparin Anti-Xa Level Sodium Potassium Chloride Carbon Dioxide BUN 27 H Creatinine Glucose 269 H POC Glucose 203 H Magnesium Ferritin AST Lactate Dehydrogenase Troponin T C-Reactive Protein NT-Pro-B Natriuret Pep Albumin Triglycerides HDL Cholesterol Coronavirus (PCR) 02/16/21 02/16/21 02/16/21 05:47 11:50 15:00 WBC RBC Hct MCV MCH MCHC RDW Lymph % (Auto) Lymph # (Auto) Seg Neutrophils % Seg Neuts % (Manual) Lymphocytes % (Manual) Seg Neutrophils # Seg Neutrophils # Man Lymphocytes # (Manual) PT INR D-Dimer Heparin Anti-Xa Level < 0.10 L Sodium Potassium Chloride Carbon Dioxide BUN Creatinine Glucose POC Glucose 275 H 251 H Magnesium Ferritin AST Lactate Dehydrogenase Troponin T C-Reactive Protein NT-Pro-B Natriuret Pep Albumin Triglycerides HDL Cholesterol Coronavirus (PCR) 02/16/21 02/16/21 02/16/21 18:23 23:30 23:57 WBC RBC Hct MCV MCH MCHC RDW Lymph % (Auto) Lymph # (Auto) Seg Neutrophils % Seg Neuts % (Manual) Lymphocytes % (Manual) Seg Neutrophils # Seg Neutrophils # Man Lymphocytes # (Manual) PT INR D-Dimer Heparin Anti-Xa Level < 0.10 L Sodium Potassium Chloride Carbon Dioxide BUN Creatinine Glucose POC Glucose 237 H 249 H Magnesium Ferritin AST Lactate Dehydrogenase Troponin T C-Reactive Protein NT-Pro-B Natriuret Pep Albumin Triglycerides HDL Cholesterol Coronavirus (PCR) 02/16/21 02/17/21 02/17/21 Unknown 05:25 06:18 WBC RBC Hct MCV MCH MCHC RDW Lymph % (Auto) Lymph # (Auto) Seg Neutrophils % Seg Neuts % (Manual) Lymphocytes % (Manual) Seg Neutrophils # Seg Neutrophils # Man Lymphocytes # (Manual) PT INR D-Dimer Heparin Anti-Xa Level Sodium Potassium Chloride Carbon Dioxide BUN Creatinine Glucose POC Glucose 238 H 229 H Magnesium Ferritin AST Lactate Dehydrogenase Troponin T C-Reactive Protein NT-Pro-B Natriuret Pep Albumin Triglycerides HDL Cholesterol Coronavirus (PCR) Positive A 02/17/21 11:35 WBC RBC Hct MCV MCH MCHC RDW Lymph % (Auto) Lymph # (Auto) Seg Neutrophils % Seg Neuts % (Manual) Lymphocytes % (Manual) Seg Neutrophils # Seg Neutrophils # Man Lymphocytes # (Manual) PT INR D-Dimer Heparin Anti-Xa Level Sodium Potassium Chloride Carbon Dioxide BUN Creatinine Glucose POC Glucose 279 H Magnesium Ferritin AST Lactate Dehydrogenase Troponin T C-Reactive Protein NT-Pro-B Natriuret Pep Albumin Triglycerides HDL Cholesterol Coronavirus (PCR)
--- NOTE | 2021-02-17 12:57 | Progress Note ---
Assessment and Plan 55 y/o female with STEMI and acute respiratory failure 02/17/21: Suspect family knew patient was COVID positive and did not tell us. 48 hours now behind on starting therapy, maybe longer. Agree with steroids. Will ask ID about Remdesivir and Actemra. Monitor fluids, BNP was still elevated despite normal EF. Wean FiO2 as tolerated and need to have patient manually prone. Follow up neurology recs as well as ID. Guarded prognosis. 02/16/21: Responded well to diuresis, will give more lasix today. Going for MRI today. Spoke with downstairs who is upset about lack of visitation. he also states that he has a neurologist who is willing to accept the patient to [facility] but he refused to give me the name of the physician. Will continue supportive measures. 1. Pulm- CXR appears to be more consistent with pulmonary edema and BNP is 4k. Stopped IVF's. Attempted to take of bipap but desats on cannula. Awake and tachypnic. Will give lasix 20mg IV x1 now to see if this helps with oxygen requirement. DO not feel this is infection. 2. Cards-STemi, goal directed therapy and follow up echo, done but not read yet. 3. Endo-elevated blood sugar likely related to acute mI, although patient could have underlying disease given age and weight, suggest checking A1C. 4. Guarded prognosis Subjective Date of service: 02/17/21 Principal diagnosis: CVA with left side weakness ,elevated inflammatory markers Interval history: Patient is covid positive. yesterday eluded to this by saying that patient was taking Hydroxychloroquine and Ivermectin but per the this was prophylactic therapy (this has not been approved). Objective Vital Signs - 12hr 02/17/21 02/17/21 02/17/21 01:00 01:15 01:30 Temperature Pulse Rate 96 H 96 H 95 H Pulse Rate [ From Monitor] Respiratory 24 Rate Blood Pressure 124/92 124/92 132/88 O2 Sat by Pulse 85 95 Oximetry 02/17/21 02/17/21 02/17/21 01:45 02:00 02:15 Temperature Pulse Rate 92 H 95 H 94 H Pulse Rate [ From Monitor] Respiratory 29 H 25 H 25 H Rate Blood Pressure 132/88 120/86 120/86 O2 Sat by Pulse 95 96 Oximetry 02/17/21 02/17/21 02/17/21 02:30 02:45 03:00 Temperature Pulse Rate 94 H 93 H 95 H Pulse Rate [ From Monitor] Respiratory 25 H 29 H 28 H Rate Blood Pressure 123/89 123/89 124/83 O2 Sat by Pulse 91 94 Oximetry 02/17/21 02/17/21 02/17/21 03:15 03:30 03:45 Temperature Pulse Rate 95 H 100 H 100 H Pulse Rate [ From Monitor] Respiratory 29 H 20 24 Rate Blood Pressure 124/83 130/88 130/88 O2 Sat by Pulse 92 93 Oximetry 02/17/21 02/17/21 02/17/21 04:00 04:15 04:30 Temperature 98.5 F Pulse Rate 91 H 90 96 H Pulse Rate [ 90 From Monitor] Respiratory 20 27 H 23 Rate Blood Pressure 121/84 121/84 115/86 O2 Sat by Pulse 94 94 81 L Oximetry 02/17/21 02/17/21 02/17/21 04:45 05:00 05:15 Temperature Pulse Rate 91 H 98 H 96 H Pulse Rate [ From Monitor] Respiratory 29 H 20 28 H Rate Blood Pressure 121/84 134/83 134/83 O2 Sat by Pulse 94 91 96 Oximetry 02/17/21 02/17/21 02/17/21 05:30 05:45 05:54 Temperature Pulse Rate 95 H 94 H Pulse Rate [ From Monitor] Respiratory 28 H 21 Rate Blood Pressure 125/82 125/82 O2 Sat by Pulse 88 97 95 Oximetry 02/17/21 02/17/21 02/17/21 06:00 06:15 06:30 Temperature Pulse Rate 96 H 96 H 95 H Pulse Rate [ From Monitor] Respiratory 24 23 27 H Rate Blood Pressure 130/90 130/90 140/91 O2 Sat by Pulse 94 91 97 Oximetry 02/17/21 02/17/21 02/17/21 06:45 07:00 07:15 Temperature Pulse Rate 93 H 100 H 98 H Pulse Rate [ From Monitor] Respiratory 31 H 19 33 H Rate Blood Pressure 140/91 128/96 130/90 O2 Sat by Pulse 93 99 92 Oximetry 02/17/21 02/17/21 02/17/21 07:31 07:45 08:00 Temperature 98 F Pulse Rate 98 H 99 H 97 H Pulse Rate [ From Monitor] Respiratory 30 H 22 24 Rate Blood Pressure 143/90 143/90 153/100 O2 Sat by Pulse 93 97 95 Oximetry 02/17/21 02/17/21 02/17/21 08:15 08:28 08:30 Temperature Pulse Rate 92 H 94 H Pulse Rate [ From Monitor] Respiratory 27 H 27 H Rate Blood Pressure 153/100 146/90 O2 Sat by Pulse 97 94 93 Oximetry 02/17/21 02/17/21 02/17/21 08:45 09:00 09:15 Temperature Pulse Rate 101 H 99 H 100 H Pulse Rate [ From Monitor] Respiratory 32 H 29 H 28 H Rate Blood Pressure 146/90 140/86 140/86 O2 Sat by Pulse 95 95 94 Oximetry 02/17/21 02/17/21 02/17/21 09:31 09:35 09:45 Temperature Pulse Rate 96 H 100 H 100 H Pulse Rate [ From Monitor] Respiratory 36 H 35 H Rate Blood Pressure 143/103 143/103 140/86 O2 Sat by Pulse 97 97 Oximetry 02/17/21 02/17/21 02/17/21 10:00 10:15 10:30 Temperature Pulse Rate 100 H 92 H 86 Pulse Rate [ From Monitor] Respiratory 30 H 22 23 Rate Blood Pressure 138/90 138/90 122/81 O2 Sat by Pulse 97 96 97 Oximetry 02/17/21 02/17/21 02/17/21 10:45 11:00 11:15 Temperature Pulse Rate 88 85 80 Pulse Rate [ From Monitor] Respiratory 29 H 30 H 30 H Rate Blood Pressure 122/81 126/86 126/86 O2 Sat by Pulse 96 95 94 Oximetry 02/17/21 02/17/21 02/17/21 11:30 11:45 12:00 Temperature 99.8 F H Pulse Rate 83 82 85 Pulse Rate [ From Monitor] Respiratory 26 H 30 H 29 H Rate Blood Pressure 116/81 126/86 131/83 O2 Sat by Pulse 93 96 96 Oximetry Gastrointestinal: normoactive bowel sounds Integumentary: normal CBC and BMP: 02/17/21 02:23 02/16/21 02:44 ABG, PT/INR, D-dimer: PT/INR, D-dimer PT 15.8 Sec. (12.2-14.9) H 02/15/21 18:20 INR 1.20 (0.87-1.13) H 02/15/21 18:20 D-Dimer > 47898 ng/mlDDU (0-234) H 02/15/21 18:20 Abnormal lab findings: Abnormal Labs 02/14/21 02/14/21 02/14/21 20:21 20:21 20:21 WBC 15.6 H RBC 5.55 H Hct 43.3 H MCV 78 L MCH 26 L MCHC RDW 16.3 H Lymph % (Auto) Lymph # (Auto) Seg Neutrophils % Seg Neuts % (Manual) 96.0 H Lymphocytes % (Manual) 3.0 L Seg Neutrophils # Seg Neutrophils # Man 15.0 H Lymphocytes # (Manual) 0.5 L PT 16.7 H INR 1.30 H D-Dimer Heparin Anti-Xa Level Sodium 131 L Potassium 5.1 H Chloride 88.4 L Carbon Dioxide 20 L BUN 34 H Creatinine 1.5 H Glucose 574 H* POC Glucose Magnesium Ferritin AST Lactate Dehydrogenase Troponin T 0.882 H* C-Reactive Protein NT-Pro-B Natriuret Pep Albumin Triglycerides 292 H HDL Cholesterol 23 L Coronavirus (PCR) 02/14/21 02/14/21 02/14/21 20:21 23:11 23:20 WBC RBC Hct MCV MCH MCHC RDW Lymph % (Auto) Lymph # (Auto) Seg Neutrophils % Seg Neuts % (Manual) Lymphocytes % (Manual) Seg Neutrophils # Seg Neutrophils # Man Lymphocytes # (Manual) PT INR D-Dimer Heparin Anti-Xa Level Sodium Potassium Chloride Carbon Dioxide BUN Creatinine Glucose POC Glucose 562 H 422 H Magnesium Ferritin AST Lactate Dehydrogenase Troponin T 0.892 H* C-Reactive Protein NT-Pro-B Natriuret Pep Albumin Triglycerides HDL Cholesterol Coronavirus (PCR) 02/15/21 02/15/21 02/15/21 03:55 03:55 05:29 WBC RBC 5.17 H Hct MCV 77 L MCH 26 L MCHC RDW 15.8 H Lymph % (Auto) 4.9 L Lymph # (Auto) 0.5 L Seg Neutrophils % 89.2 H Seg Neuts % (Manual) Lymphocytes % (Manual) Seg Neutrophils # 8.4 H Seg Neutrophils # Man Lymphocytes # (Manual) PT INR D-Dimer Heparin Anti-Xa Level Sodium 136 L Potassium Chloride 97.3 L Carbon Dioxide 18 L BUN 33 H Creatinine Glucose 402 H POC Glucose 345 H Magnesium Ferritin AST 46 H Lactate Dehydrogenase Troponin T 0.992 H* C-Reactive Protein NT-Pro-B Natriuret Pep Albumin 3.0 L Triglycerides HDL Cholesterol Coronavirus (PCR) 02/15/21 02/15/21 02/15/21 08:38 08:38 08:38 WBC RBC Hct MCV 75 L MCH 26 L MCHC 35 H RDW 16.2 H Lymph % (Auto) Lymph # (Auto) Seg Neutrophils % Seg Neuts % (Manual) Lymphocytes % (Manual) Seg Neutrophils # Seg Neutrophils # Man Lymphocytes # (Manual) PT INR D-Dimer Heparin Anti-Xa Level Sodium 135 L Potassium Chloride Carbon Dioxide 19 L BUN 31 H Creatinine Glucose 360 H POC Glucose Magnesium 2.50 H Ferritin AST Lactate Dehydrogenase Troponin T C-Reactive Protein NT-Pro-B Natriuret Pep 4086 H Albumin Triglycerides HDL Cholesterol Coronavirus (PCR) 02/15/21 02/15/21 02/15/21 11:15 17:28 18:20 WBC RBC Hct MCV MCH MCHC RDW Lymph % (Auto) Lymph # (Auto) Seg Neutrophils % Seg Neuts % (Manual) Lymphocytes % (Manual) Seg Neutrophils # Seg Neutrophils # Man Lymphocytes # (Manual) PT INR D-Dimer > 75675 H Heparin Anti-Xa Level Sodium Potassium Chloride Carbon Dioxide BUN Creatinine Glucose POC Glucose 317 H 311 H Magnesium Ferritin AST Lactate Dehydrogenase Troponin T C-Reactive Protein NT-Pro-B Natriuret Pep Albumin Triglycerides HDL Cholesterol Coronavirus (PCR) 02/15/21 02/15/21 02/15/21 18:20 18:20 18:20 WBC RBC Hct MCV MCH MCHC RDW Lymph % (Auto) Lymph # (Auto) Seg Neutrophils % Seg Neuts % (Manual) Lymphocytes % (Manual) Seg Neutrophils # Seg Neutrophils # Man Lymphocytes # (Manual) PT 15.8 H INR 1.20 H D-Dimer Heparin Anti-Xa Level Sodium Potassium Chloride Carbon Dioxide BUN Creatinine Glucose POC Glucose Magnesium Ferritin 837.7 H AST Lactate Dehydrogenase 766 H Troponin T C-Reactive Protein 21.50 H NT-Pro-B Natriuret Pep Albumin Triglycerides HDL Cholesterol Coronavirus (PCR) 02/15/21 02/16/21 02/16/21 23:45 02:44 02:44 WBC RBC Hct MCV 77 L MCH 26 L MCHC RDW 16.0 H Lymph % (Auto) Lymph # (Auto) Seg Neutrophils % Seg Neuts % (Manual) Lymphocytes % (Manual) Seg Neutrophils # Seg Neutrophils # Man Lymphocytes # (Manual) PT INR D-Dimer Heparin Anti-Xa Level Sodium Potassium Chloride Carbon Dioxide BUN 27 H Creatinine Glucose 269 H POC Glucose 203 H Magnesium Ferritin AST Lactate Dehydrogenase Troponin T C-Reactive Protein NT-Pro-B Natriuret Pep Albumin Triglycerides HDL Cholesterol Coronavirus (PCR) 02/16/21 02/16/21 02/16/21 05:47 11:50 15:00 WBC RBC Hct MCV MCH MCHC RDW Lymph % (Auto) Lymph # (Auto) Seg Neutrophils % Seg Neuts % (Manual) Lymphocytes % (Manual) Seg Neutrophils # Seg Neutrophils # Man Lymphocytes # (Manual) PT INR D-Dimer Heparin Anti-Xa Level < 0.10 L Sodium Potassium Chloride Carbon Dioxide BUN Creatinine Glucose POC Glucose 275 H 251 H Magnesium Ferritin AST Lactate Dehydrogenase Troponin T C-Reactive Protein NT-Pro-B Natriuret Pep Albumin Triglycerides HDL Cholesterol Coronavirus (PCR) 02/16/21 02/16/21 02/16/21 18:23 23:30 23:57 WBC RBC Hct MCV MCH MCHC RDW Lymph % (Auto) Lymph # (Auto) Seg Neutrophils % Seg Neuts % (Manual) Lymphocytes % (Manual) Seg Neutrophils # Seg Neutrophils # Man Lymphocytes # (Manual) PT INR D-Dimer Heparin Anti-Xa Level < 0.10 L Sodium Potassium Chloride Carbon Dioxide BUN Creatinine Glucose POC Glucose 237 H 249 H Magnesium Ferritin AST Lactate Dehydrogenase Troponin T C-Reactive Protein NT-Pro-B Natriuret Pep Albumin Triglycerides HDL Cholesterol Coronavirus (PCR) 02/16/21 02/17/21 02/17/21 Unknown 05:25 06:18 WBC RBC Hct MCV MCH MCHC RDW Lymph % (Auto) Lymph # (Auto) Seg Neutrophils % Seg Neuts % (Manual) Lymphocytes % (Manual) Seg Neutrophils # Seg Neutrophils # Man Lymphocytes # (Manual) PT INR D-Dimer Heparin Anti-Xa Level Sodium Potassium Chloride Carbon Dioxide BUN Creatinine Glucose POC Glucose 238 H 229 H Magnesium Ferritin AST Lactate Dehydrogenase Troponin T C-Reactive Protein NT-Pro-B Natriuret Pep Albumin Triglycerides HDL Cholesterol Coronavirus (PCR) Positive A 02/17/21 11:35 WBC RBC Hct MCV MCH MCHC RDW Lymph % (Auto) Lymph # (Auto) Seg Neutrophils % Seg Neuts % (Manual) Lymphocytes % (Manual) Seg Neutrophils # Seg Neutrophils # Man Lymphocytes # (Manual) PT INR D-Dimer Heparin Anti-Xa Level Sodium Potassium Chloride Carbon Dioxide BUN Creatinine Glucose POC Glucose 279 H Magnesium Ferritin AST Lactate Dehydrogenase Troponin T C-Reactive Protein NT-Pro-B Natriuret Pep Albumin Triglycerides HDL Cholesterol Coronavirus (PCR)
[2021-02-17] MEDS ORDERED: TOCILIZUMAB 810 MG in SODIUM CHLORIDE 0.9% 100 ML IV ONE (13:00)
--- NOTE | 2021-02-17 13:49 | Progress Note ---
Assessment and Plan - Patient Problems (1) STEMI (ST elevation myocardial infarction) Current Visit: Yes Status: Acute Plan to address problem: Patient admitted with symptoms of acute Covid pneumonia, and intercurrent acute inferolateral myocardial infarction. Angiography demonstrated the infarct to be due to right coronary artery thrombus, treated with a single drug-eluting stent. Patient is on aspirin and Plavix, and intravenous heparin. (2) Venous thromboembolism Current Visit: Yes Status: Acute Plan to address problem: Echocardiogram showed a mobile mass in the right ventricle, suggestive of venous thromboembolism in transition, continue intravenous heparin, ultimately will be transitioned to long-term warfarin therapy or a NOAC. Subjective Date of service: 02/17/21 Principal diagnosis: CVA with left side weakness ,elevated inflammatory markers Interval history: No new cardiac complaints, the patient's Covid test was positive. Objective Vital Signs Temp Pulse Pulse Pulse Resp Resp BP 02/17/21 12:00 99.8 F H 85 29 H 131/83 02/17/21 11:45 82 30 H 126/86 02/17/21 11:30 83 26 H 116/81 02/17/21 11:15 80 30 H 126/86 02/17/21 11:00 85 30 H 126/86 02/17/21 10:45 88 29 H 122/81 02/17/21 10:30 86 23 122/81 02/17/21 10:15 92 H 22 138/90 02/17/21 10:00 100 H 30 H 138/90 02/17/21 09:45 100 H 35 H 140/86 02/17/21 09:35 100 H 143/103 02/17/21 09:31 96 H 36 H 143/103 02/17/21 09:15 100 H 28 H 140/86 02/17/21 09:00 99 H 29 H 140/86 02/17/21 08:45 101 H 32 H 146/90 02/17/21 08:30 94 H 27 H 146/90 02/17/21 08:28 02/17/21 08:15 92 H 27 H 153/100 02/17/21 08:00 98 F 97 H 24 153/100 02/17/21 07:45 99 H 22 143/90 02/17/21 07:31 98 H 30 H 143/90 02/17/21 07:15 98 H 33 H 130/90 02/17/21 07:00 100 H 19 128/96 02/17/21 06:45 93 H 31 H 140/91 02/17/21 06:30 95 H 27 H 140/91 02/17/21 06:15 96 H 23 130/90 02/17/21 06:00 96 H 24 130/90 02/17/21 05:54 02/17/21 05:45 94 H 21 125/82 02/17/21 05:30 95 H 28 H 125/82 02/17/21 05:15 96 H 28 H 134/83 02/17/21 05:00 98 H 20 134/83 02/17/21 04:45 91 H 29 H 121/84 02/17/21 04:30 96 H 23 115/86 02/17/21 04:15 90 27 H 121/84 02/17/21 04:00 98.5 F 91 H 90 20 121/84 02/17/21 03:45 100 H 24 130/88 02/17/21 03:30 100 H 20 130/88 02/17/21 03:15 95 H 29 H 124/83 02/17/21 03:00 95 H 28 H 124/83 02/17/21 02:45 93 H 29 H 123/89 02/17/21 02:30 94 H 25 H 123/89 02/17/21 02:15 94 H 25 H 120/86 02/17/21 02:00 95 H 25 H 120/86 02/17/21 01:45 92 H 29 H 132/88 02/17/21 01:30 95 H 24 132/88 02/17/21 01:15 96 H 24 124/92 02/17/21 01:00 96 H 21 124/92 02/17/21 00:45 94 H 28 H 119/73 02/17/21 00:30 94 H 30 H 119/73 02/17/21 00:15 96 H 26 H 146/89 02/17/21 00:00 93 H 94 H 25 H 146/89 02/16/21 23:54 02/16/21 23:45 93 H 28 H 122/76 02/16/21 23:30 95 H 28 H 122/76 02/16/21 23:15 95 H 30 H 131/85 02/16/21 23:07 96 H 25 H 131/85 09/23/21 23:00 96 H 26 H 131/85 02/16/21 22:45 98 H 25 H 136/90 02/16/21 22:30 96 H 25 H 136/90 02/16/21 22:15 92 H 26 H 133/96 02/16/21 22:10 26 H 02/16/21 22:00 94 H 24 18 133/96 02/16/21 21:45 102 H 27 H 142/86 02/16/21 21:31 99 H 20 142/86 02/16/21 21:15 98 H 33 H 132/85 02/16/21 21:08 02/16/21 21:00 97 H 96 H 32 H 132/85 02/16/21 20:45 99 H 30 H 139/88 02/16/21 20:30 95 H 32 H 139/88 02/16/21 20:15 95 H 29 H 101/67 02/16/21 20:01 96 H 30 H 140/91 02/16/21 20:00 98.2 F 96 H 92 H 02/16/21 19:45 97 H 28 H 140/91 02/16/21 19:30 94 H 31 H 140/91 02/16/21 19:15 92 H 27 H 145/87 02/16/21 19:00 93 H 28 H 145/87 02/16/21 18:45 88 28 H 137/87 02/16/21 18:30 91 H 28 H 137/87 02/16/21 18:15 89 29 H 117/85 02/16/21 18:00 92 H 30 H 117/85 02/16/21 17:45 87 18 132/88 02/16/21 17:30 87 30 H 132/88 02/16/21 17:15 89 16 158/82 02/16/21 17:01 70 22 158/82 02/16/21 16:54 02/16/21 16:45 83 29 H 126/96 02/16/21 16:30 81 17 122/92 02/16/21 16:28 92 H 126/96 02/16/21 16:15 92 H 20 126/96 02/16/21 16:00 100.1 F H 92 H 92 H 25 H 126/96 02/16/21 15:45 90 22 128/101 02/16/21 15:41 100.1 F H 02/16/21 15:30 95 H 17 128/101 02/16/21 15:15 91 H 23 137/91 02/16/21 15:00 91 H 19 137/91 02/16/21 14:45 91 H 24 120/89 02/16/21 14:30 91 H 25 H 120/89 02/16/21 14:27 02/16/21 14:23 91 H 131/92 Pulse Ox 02/17/21 12:00 96 02/17/21 11:45 96 02/17/21 11:30 93 02/17/21 11:15 94 02/17/21 11:00 95 02/17/21 10:45 96 02/17/21 10:30 97 02/17/21 10:15 96 02/17/21 10:00 97 02/17/21 09:45 97 02/17/21 09:35 02/17/21 09:31 97 02/17/21 09:15 94 02/17/21 09:00 95 02/17/21 08:45 95 02/17/21 08:30 93 02/17/21 08:28 94 02/17/21 08:15 97 02/17/21 08:00 95 02/17/21 07:45 97 02/17/21 07:31 93 02/17/21 07:15 92 02/17/21 07:00 99 02/17/21 06:45 93 02/17/21 06:30 97 02/17/21 06:15 91 02/17/21 06:00 94 02/17/21 05:54 95 02/17/21 05:45 97 02/17/21 05:30 88 02/17/21 05:15 96 02/17/21 05:00 91 02/17/21 04:45 94 02/17/21 04:30 81 L 02/17/21 04:15 94 02/17/21 04:00 94 02/17/21 03:45 93 02/17/21 03:30 02/17/21 03:15 92 02/17/21 03:00 02/17/21 02:45 94 02/17/21 02:30 91 02/17/21 02:15 96 02/17/21 02:00 02/17/21 01:45 95 02/17/21 01:30 95 02/17/21 01:15 85 02/17/21 01:00 02/17/21 00:45 95 02/17/21 00:30 02/17/21 00:15 93 02/17/21 00:00 93 02/16/21 23:54 95 02/16/21 23:45 95 02/16/21 23:30 94 02/16/21 23:15 96 02/16/21 23:07 93 02/16/21 23:00 95 02/16/21 22:45 91 02/16/21 22:30 95 02/16/21 22:15 95 02/16/21 22:10 02/16/21 22:00 91 02/16/21 21:45 93 02/16/21 21:31 92 02/16/21 21:15 94 02/16/21 21:08 96 02/16/21 21:00 97 02/16/21 20:45 98 02/16/21 20:30 95 02/16/21 20:15 96 02/16/21 20:01 89 02/16/21 20:00 100 02/16/21 19:45 02/16/21 19:30 96 02/16/21 19:15 97 02/16/21 19:00 95 02/16/21 18:45 100 02/16/21 18:30 99 02/16/21 18:15 98 02/16/21 18:00 74 L 02/16/21 17:45 96 02/16/21 17:30 90 02/16/21 17:15 93 02/16/21 17:01 97 02/16/21 16:54 97 02/16/21 16:45 98 02/16/21 16:30 91 02/16/21 16:28 02/16/21 16:15 100 02/16/21 16:00 100 02/16/21 15:45 99 02/16/21 15:41 02/16/21 15:30 02/16/21 15:15 99 02/16/21 15:00 97 02/16/21 14:45 02/16/21 14:30 100 02/16/21 14:27 96 02/16/21 14:23 - Physical Examination Narrative exam: Full physical exam is deferred due to acute Covid pneumonia. General: Other (on bipap) HEENT: Positive: PERRL Neck: Positive: trachea midline - Labs and Meds CBC 02/17/21 Range/Units 02:23 Hgb 12.9 (10.1-14.3) gm/dl Hct 38.4 (30.3-42.9) % Plt Count 165 (140-440) K/mm3
[2021-02-17 14:11] LABS: Alanine Aminotransferase 22 units/L (7-56); Albumin 2.7 g/dL (3.9-5); BUN/Creatinine Ratio 32; Blood Urea Nitrogen 29 mg/dL (7-17); Calcium 8.8 mg/dL (8.4-10.2); Hemolysis Index 11; Hemolysis Index 5
[2021-02-17 16:06] LABS: Hematocrit 37.8 % (30.3-42.9); Hemoglobin 12.4 gm/dl (10.1-14.3); Mean Corpuscular HGB Conc 33 % (30-34); Mean Corpuscular Volume 77 fl (79-97); Platelet Count 172 K/mm3 (140-440); Red Blood Count 4.92 M/mm3 (3.65-5.03); Red Cell Distribution Width 16.1 % (13.2-15.2)
--- NOTE | 2021-02-17 19:50 | Progress Note ---
Assessment and Plan Assessment and plan: 55-year-old female with PmHx of HTN, uterine fibroids and ex-smoker admitted for acute right MCA CVA and STEMI s/p PCI in RCA, now with acute respiratory distress requiring continuous Bipap. Hospital Course to date: 02/16/21- Patient AAOX4, with slurred speech and Lt. sided weakness. MRI/MRA brain pending. Remains on continuous Bipap, failed optiflow trial overnight. Bilateral infiltrate noted on today CXR additional lasix was adminstered to optimize Respiratory status, However was D/C due to marginal BP concern for Hypoperfusion. Will reassess in the Am. Plan to wean off Bipap as tolerated. Patient has been NPO due to continuous Bipap. When patient is off bipap nurse to complete bedside swallow screen, if fail will place NGT so pateint can received PO meds. Low grade temp today, TMAX 101.2 in last 24hrs, Bcult pending, on IV abx, ceftriaxone and azithromycin. COVID swab result pending, ID on the case rec to start dexamethasone 6 mg IV/p.o. daily for 10 days. 02/17/21- COVID PCR can back possible, patient was already on Rocephin and azithromaci, added Remdesevir per protocol, and IV decadron was initiated. Patient was wean to heated high flow, currently on 70% FiO2 and 40L. Wean O2 supplement as tolerated for a SPO2b goal above 88%. Persistent hyperglycemia, lantus increased to 10 units. Speech eval completed, patient pass swallow, order placed for pureed diet with thin liquid. Will continue to monitor, Heparing gtt per protocol, Am labs ordered. #Neuro: Acute right MCA CVA - 02/13/21- CT head shows microvascular angiopathy, decreased attenuation along the posterior right frontal subcortical region, no acute intracranial hemorrhage - 02/13/2021- CTA head shows decreased attenuation along the posterior right frontal lobe, no CT evidence of significant stenosis involving proximal cerebral branches particularly the proximal right MCA - 02/13/21- CTA neck shows mild atherosclerotic calcification involving the proximal internal carotid arteries bilaterally without significant stenosis - MRI brain and MRA brain and neck pending - Per EMR intial NIH was 9 - Not candidate for any intervention- out of the time window - Aspirin, Plavix, & Lipitor ordered. PO meds has been on hold due patient on continuous Bipap - Rectal ASA orderd. - Possible NGT insert if patient is to remain on Bipap or fail swallow screen - Prevent hypoperfusion, close monitor of blood pressure - Seizure precautions - PT/OT/ST eval - Neurology consulted, appreciate recommendations #CV: STEMI s/p PCI in RCA, h/o HTN #Rt. Ventricle Thrombus - 02/13/2021 Echo: EF 55%, mild concentric left ventricular Hypertrophy,suspected thrombus in right ventricle - Heparin protocol initiated - On Statin, beta-silas, Plavix and aspirin - 02/16 X1 dose rectal ASA- due to NPO status - SBP in the 110/120s. Prevent hypoperfusion, close monitoring of blood pressure- Goal SBP<160, Keep MAP>60 - proBNP:4086. 02/16Additional lasix today to optimize Respiratory status, However was D/C due to marginal BP concern for Hypoperfusion. Will reassess in the Am - Strict I&O #Respiratory: Acute hypoxic respiratory possibly due to COVID; COVID PUI - On heated high flow at 700% FiO2, 40L - Bilateral infiltrate appreciate from 02/16 CXR - 02/15 Elevated inflam. makers: DDimer>[id number], Ferrintin 837.7, LDH 766, CRP 21.50 - proBNP:4086. Additional lasix today to optimize Respiratory status, However was D/C due to marginal BP concern for Hypoperfusion. Will reassess in the Am - COVID swab pending - Continue to monitor SPO2 wean Bipap off to HFNC as tolerated for SPO2 above 88% - F/U chest Xray in the am - AM labs ordered - pulmo/CCM consulted, appreciate recommendations #GI: Dysphagia - Speech eval completed, pass swallow - Pureed diet with thin liquid order #: Acute kidney injury - improving - Initial cr. 1.5. Creatinine downtrending 1.1 today - No longer on IVFluid due to [place] infiltrate/fluif overload on CXR - proBNP:4086. Additional lasix today to optimize Respiratory status, However was D/C due to marginal BP concern for Hypoperfusion. Will reassess in the Am - Continue to monitor renal function. Am labs ordered - Consider nephrology consult if kidney function worsen - Strict I&Os, purewick in place #ID: acute sepsis 2/2 STEMI vs [place] PNA Vs COVID PNA - 02/16 Bilateral infiltrate appreciate - TMAX 100.1, no leukocytosis WBC 8.1 - Elevated inflam. makers: DDimer>[id number], Ferrintin 837.7, LDH 766, CRP 21.50 - 02/16 COVID positive, 02/16 BcultX2 pending - Procal pending - Currently on ceftriaxone and azithromycin X5days - 02/17 added remdesevir per protocol - 02/17 IV decadron [id number] - Contact/droplet precautions - AM labs ordered, F/U CXR in the am #Heme: Anemia - Hgb 12.3, MCV 77, MCH 26 - On heparin gtt per protocol, ASA and plavix - Monitor for s/s of bleeding - Bilateral SCDs for VTE proph - Monitor H&H and plts. AM labs ordered #Endo: Hyperglycemia - Hemoglobin A1c pending - Persistent hyperglycemia high dose SSI - Lantus increased to 10 units SUBQ The high probability of a clinically significant, sudden or life threatening deterioration of the [pulmonary, neuro, cardiac, ID] system(s) required my full and direct attention, intervention and personal management. The aggregate critical care time was [60] minutes. This time is in addition to time spent performing reported procedures but includes the following: [x] Data Review and interpretation [x] Patient assessment and monitoring of vital signs [x] Documentation [x] Medication orders and management I saw and evaluated the patient. Discussed with the nurse practitioner and agree with their findings and plan as documented in this note. Disposition Plan: ICU Total Time Spent with Patient (Minutes): 60 History Interval history: Patient was seen and examined. AAOX$, with sign. slurred speech and Lt. sided weakness. On heated high flow SPO2 at 95%, NAD noted. Patient stated she is feeling much better and his ready to go home Hospitalist Physical - Constitutional Vitals: Temp Pulse Resp BP Pulse Ox 99.8 F H 100 H 35 H 151/103 94 02/17/21 16:00 02/17/21 19:27 02/17/21 19:15 02/17/21 19:15 02/17/21 19:15 General appearance: Present: no acute distress, mild distress, well-nourished - EENT Eyes: Present: PERRL ENT: hearing intact - Respiratory Respiratory effort: normal - Cardiovascular Rhythm: regular Heart Sounds: Present: S1 & S2 - Extremities Extremities: no ischemia, pulses intact, pulses symmetrical, No edema Peripheral Pulses: within normal limits - Abdominal General gastrointestinal: non-tender, non-distended - Integumentary Integumentary: Present: clear, warm, dry - Psychiatric Psychiatric: appropriate mood/affect - Neurologic Neurologic: focal deficits - Allied Health Allied health notes reviewed: nursing, ST HEART Score - HEART Score Troponin: Troponin T 0.992 ng/mL (0.00-0.029) H* 02/15/21 03:55 Results - Labs CBC & Chem 7: 02/17/21 13:30 02/17/21 13:30 Labs: Laboratory Last Values WBC 8.0 K/mm3 (4.5-11.0) 02/17/21 13:30 RBC 4.92 M/mm3 (3.65-5.03) 02/17/21 13:30 Hgb 12.4 gm/dl (10.1-14.3) 02/17/21 13:30 Hct 37.8 % (30.3-42.9) 02/17/21 13:30 MCV 77 fl (79-97) L 02/17/21 13:30 MCH 25 pg (28-32) L 02/17/21 13:30 MCHC 33 % (30-34) 02/17/21 13:30 RDW 16.1 % (13.2-15.2) H 02/17/21 13:30 Plt Count 172 K/mm3 (140-440) 02/17/21 13:30 Lymph % (Auto) 4.9 % (13.4-35.0) L 02/15/21 03:55 [place] % (Auto) 5.3 % (0.0-7.3) 02/15/21 03:55 Eos % (Auto) 0.5 % (0.0-4.3) 02/15/21 03:55 Baso % (Auto) 0.1 % (0.0-1.8) 02/15/21 03:55 Lymph # (Auto) 0.5 K/mm3 (1.2-5.4) L 02/15/21 03:55 [place] # (Auto) 0.5 K/mm3 (0.0-0.8) 02/15/21 03:55 Eos # (Auto) 0.1 K/mm3 (0.0-0.4) 02/15/21 03:55 Baso # (Auto) 0.0 K/mm3 (0.0-0.1) 02/15/21 03:55 Add Manual Diff Complete 02/14/21 20:21 Total Counted 100 02/14/21 20:21 Seg Neutrophils % 89.2 % (40.0-70.0) H 02/15/21 03:55 Seg Neuts % (Manual) 96.0 % (40.0-70.0) H 02/14/21 20:21 Lymphocytes % (Manual) 3.0 % (13.4-35.0) L 02/14/21 20:21 Monocytes % (Manual) 1.0 % (0.0-7.3) 02/14/21 20:21 Nucleated RBC % Not Reportable 02/14/21 20:21 Seg Neutrophils # 8.4 K/mm3 (1.8-7.7) H 02/15/21 03:55 Seg Neutrophils # Man 15.0 K/mm3 (1.8-7.7) H 02/14/21 20:21 Band Neutrophils # 0.0 K/mm3 02/14/21 20:21 Lymphocytes # (Manual) 0.5 K/mm3 (1.2-5.4) L 02/14/21 20:21 Abs React Lymphs (Man) 0.0 K/mm3 02/14/21 20:21 Monocytes # (Manual) 0.2 K/mm3 (0.0-0.8) 02/14/21 20:21 Eosinophils # (Manual) 0.0 K/mm3 (0.0-0.4) 02/14/21 20:21 Basophils # (Manual) 0.0 K/mm3 (0.0-0.1) 02/14/21 20:21 Metamyelocytes # 0.0 K/mm3 02/14/21 20:21 Myelocytes # 0.0 K/mm3 02/14/21 20:21 Promyelocytes # 0.0 K/mm3 02/14/21 20:21 Blast Cells # 0.0 K/mm3 02/14/21 20:21 WBC Morphology Not Reportable 02/14/21 20:21 Hypersegmented Neuts Not Reportable 02/14/21 20:21 Hyposegmented Neuts Not Reportable 02/14/21 20:21 Hypogranular Neuts Not Reportable 02/14/21 20:21 Smudge Cells Not Reportable 02/14/21 20:21 Toxic Granulation Not Reportable 02/14/21 20:21 Toxic Vacuolation Not Reportable 02/14/21 20:21 Dohle Bodies Not Reportable 02/14/21 20:21 Pelger-Huet Anomaly Not Reportable 02/14/21 20:21 Aba Rods Not Reportable 02/14/21 20:21 Platelet Estimate Consistent w auto 02/14/21 20:21 Clumped Platelets Not Reportable 02/14/21 20:21 Plt Clumps, EDTA Not Reportable 02/14/21 20:21 Large Platelets Not Reportable 02/14/21 20:21 Giant Platelets Not Reportable 02/14/21 20:21 Platelet Satelliting Not Reportable 02/14/21 20:21 Plt Morphology Comment Not Reportable 02/14/21 20:21 RBC Morphology Not Reportable 02/14/21 20:21 Dimorphic RBCs Not Reportable 02/14/21 20:21 Polychromasia Not Reportable 02/14/21 20:21 Hypochromasia 1+ 02/14/21 20:21 Poikilocytosis Not Reportable 02/14/21 20:21 Anisocytosis Few 02/14/21 20:21 Microcytosis Not Reportable 02/14/21 20:21 Macrocytosis Not Reportable 02/14/21 20:21 Spherocytes Not Reportable 02/14/21 20:21 Pappenheimer Bodies Not Reportable 02/14/21 20:21 Sickle Cells Not Reportable 02/14/21 20:21 Target Cells Not Reportable 02/14/21 20:21 Tear Drop Cells Not Reportable 02/14/21 20:21 Ovalocytes Not Reportable 02/14/21 20:21 Helmet Cells Not Reportable 02/14/21 20:21 [place] Bodies Not Reportable 02/14/21 20:21 [place] Rings Not Reportable 02/14/21 20:21 [place] Cells Not Reportable 02/14/21 20:21 Bite Cells Not Reportable 02/14/21 20:21 Crenated Cell Not Reportable 02/14/21 20:21 Elliptocytes Not Reportable 02/14/21 20:21 Acanthocytes (Spur) Not Reportable 02/14/21 20:21 Rouleaux Not Reportable 02/14/21 20:21 Hemoglobin C Crystals Not Reportable 02/14/21 20:21 Schistocytes Not Reportable 02/14/21 20:21 Malaria parasites Not Reportable 02/14/21 20:21 Alberto Bodies Not Reportable 02/14/21 20:21 Hem Pathologist Commnt No 02/14/21 20:21 PT 15.8 Sec. (12.2-14.9) H 02/15/21 18:20 INR 1.20 (0.87-1.13) H 02/15/21 18:20 APTT 30.2 Sec. (24.2-36.6) 02/15/21 18:20 Thrombin Time 17.2 Sec. (15.1-19.6) 02/14/21 20:21 D-Dimer > 51554 ng/mlDDU (0-234) H 02/15/21 18:20 Heparin Anti-Xa Level 0.29 U.I./ml (0.3-0.7) L 02/17/21 13:30 Sodium 146 mmol/L (137-145) H 02/17/21 13:30 Sodium 146 mmol/L (137-145) H D 02/17/21 13:30 Potassium 4.0 mmol/L (3.6-5.0) 02/17/21 13:30 Potassium 4.2 mmol/L (3.6-5.0) 02/17/21 13:30 Chloride 106.9 mmol/L (98-107) 02/17/21 13:30 Chloride 107.3 mmol/L (98-107) H 02/17/21 13:30 Carbon Dioxide 22 mmol/L (22-30) 02/17/21 13:30 Carbon Dioxide 22 mmol/L (22-30) 02/17/21 13:30 Anion Gap 21 mmol/L 02/17/21 13:30 Anion Gap 21 mmol/L 02/17/21 13:30 BUN 29 mg/dL (7-17) H 02/17/21 13:30 BUN 29 mg/dL (7-17) H 02/17/21 13:30 Creatinine 0.9 mg/dL (0.6-1.2) 02/17/21 13:30 Creatinine 0.9 mg/dL (0.6-1.2) 02/17/21 13:30 Estimated GFR > 60 ml/min 02/17/21 13:30 Estimated GFR > 60 ml/min 02/17/21 13:30 BUN/Creatinine Ratio 32 % 02/17/21 13:30 BUN/Creatinine Ratio 32 % 02/17/21 13:30 Glucose 334 mg/dL (65-100) H 02/17/21 13:30 Glucose 340 mg/dL (65-100) H 02/17/21 13:30 POC Glucose 291 mg/dL (70-105) H 02/17/21 16:42 Calcium 8.8 mg/dL (8.4-10.2) 02/17/21 13:30 Calcium 8.8 mg/dL (8.4-10.2) 02/17/21 13:30 Phosphorus 3.20 mg/dL (2.5-4.5) 02/15/21 08:38 Magnesium 2.30 mg/dL (1.7-2.3) 02/16/21 02:44 Ferritin 837.7 ng/mL (10.0-200.0) H 02/15/21 18:20 Total Bilirubin 0.20 mg/dL (0.1-1.2) 02/17/21 13:30 AST 23 units/L (5-40) 02/17/21 13:30 ALT 22 units/L (7-56) 02/17/21 13:30 Alkaline Phosphatase 66 units/L (35-129) 02/17/21 13:30 Lactate Dehydrogenase 766 units/L (91-180) H 02/15/21 18:20 Troponin T 0.992 ng/mL (0.00-0.029) H* 02/15/21 03:55 C-Reactive Protein 21.50 mg/dL (0.00-1.30) H 02/15/21 18:20 NT-Pro-B Natriuret Pep 4086 pg/mL (0-900) H 02/15/21 08:38 Total Protein 7.0 g/dL (6.3-8.2) 02/17/21 13:30 Albumin 2.7 g/dL (3.9-5) L 02/17/21 13:30 Albumin/Globulin Ratio 0.6 % 02/17/21 13:30 Triglycerides 292 mg/dL (2-149) H 02/14/21 20:21 Cholesterol 199 mg/dL (50-199) 02/14/21 20:21 LDL Cholesterol Direct 105 mg/dL (50-130) 02/14/21 20:21 HDL Cholesterol 23 mg/dL (40-59) L 02/14/21 20:21 Cholesterol/HDL Ratio 8.65 % 02/14/21 20:21 Coronavirus (PCR) Positive (Negative) A 02/16/21 Unknown Blood Type A POSITIVE 02/14/21 20:21 Antibody Screen Negative 02/14/21 20:21 Microbiology: Microbiology 02/16/21 07:40 Peripheral/Venous Blood Culture - Preliminary NO GROWTH AFTER 24 HOURS 02/16/21 02:44 Peripheral/Venous Blood Culture - Preliminary NO GROWTH AFTER 24 HOURS Taylor/IV: Voiding Method External Female Catheter Active Medications - Current Medications Current Medications: Generic Name Dose Route Start Last Admin Trade Name Freq PRN Reason Stop Dose Admin Acetaminophen 650 mg 02/14/21 21:54 Acetaminophen 325 Mg Tab PO Q4H PRN Pain MILD(1-3)/Fever >100.5/BEEBE Acetaminophen 650 mg 02/16/21 01:00 02/16/21 02:09 Acetaminophen 650 Mg Rect Supp AR 650 mg Q6H PRN Administration Pain, Mild (1-3) Hydrocodone Bitart/Acetaminophen 1 each 02/14/21 21:57 Hydrocodone/Acetaminophen 5-325 Mg Tab PO Q6H PRN Pain, Moderate (4-6) Albuterol 2.5 mg 02/14/21 21:54 Albuterol 2.5 Mg/3 Ml Nebu IH Q4HRT PRN Shortness Of Breath Lipase/Protease/Amylase 1 each 02/17/21 12:34 Lipase 10,500/Protease 25,000/Amylase 43,750 (Units) Dr Betts FEEDTUBE PRN PRN For Clogged Feeding Tube Aspirin 81 mg 02/16/21 12:00 02/17/21 09:35 Aspirin 81 Mg Tab Chew PO 81 mg QDAY KARYN Administration Atorvastatin Calcium 80 mg 02/15/21 22:00 02/16/21 22:15 Atorvastatin 40 Mg Tab PO 80 mg QHS KARYN Administration Clopidogrel Bisulfate 75 mg 02/15/21 10:00 02/17/21 09:35 Clopidogrel 75 Mg Tab PO 75 mg QDAY KARYN Administration Dexamethasone 10 mg 02/17/21 10:00 02/17/21 09:34 Dexamethasone 4 Mg/Ml Vial IV 02/26/21 10:01 10 mg Q24HR KARYN Administration Dextrose 0 ml 02/14/21 21:54 Dextrose 50% In Water (25gm) 50 Ml Syringe IV Q30MIN PRN Hypoglycemia Protocol Docusate Sodium 100 mg 02/14/21 22:04 Docusate Sodium 100 Mg Cap PO DAILY PRN Constip unreliev by MOM/or NPO Famotidine 20 mg 02/14/21 22:00 02/17/21 09:34 Famotidine 20 Mg/2 Ml Inj IV 20 mg BID KARYN Administration Ferrous Sulfate 308 mg 02/16/21 22:00 02/17/21 10:31 Ferrous Sulfate 308 Mg (62mg Elemental Iron) / 7 Ml Elixir FEEDTUBE 308 mg BID KARYN Administration Hydromorphone HCl 0.5 mg 02/14/21 21:54 02/16/21 21:40 Hydromorphone 1 Mg/1 Ml Inj IV 0.5 mg Q3H PRN Administration Pain , Severe (7-10) Ceftriaxone Sodium 2 gm in 100 mls @ 200 mls/hr 02/14/21 23:00 02/17/21 09:34 Rocephin/Ns 2 Gm/100 Ml IV 02/18/21 10:29 200 mls/hr Q24HR KARYN Administration Protocol Heparin Sodium/Sodium Chloride 25,000 unit in 500 mls @ 20 mls/hr 02/15/21 14:00 02/17/21 09:41 Heparin/ 0.45% Nacl-25,000 Unit/500 Ml IV 1,600 units/hr TITRATE KARYN 32 mls/hr Administration Protocol 1,000 UNITS/HR Azithromycin 500 mg in 250 mls @ 250 mls/hr 02/16/21 04:00 02/17/21 04:17 Zithromax/Ns IV 02/19/21 04:59 250 mls/hr Q24H KARYN Administration REMDESIVIR 100 mg/ Sodium 250 mls @ 500 mls/hr 02/18/21 21:00 Chloride IV 02/21/21 21:29 Q24HR@2100 [facility] Insulin Glargine 10 units 02/17/21 22:00 Insulin Glargine 100 Units/Ml SUB-Q QHS [facility] Insulin Human Lispro 0 unit 02/15/21 00:00 02/17/21 17:30 Insulin Lispro 100 Unit/Ml SUB-Q 6 unit Q6HR [facility] Administration Protocol Insulin Human Lispro 0 unit 02/17/21 22:00 Insulin Lispro 100 Unit/Ml SUB-Q ACHS [facility] Protocol Melatonin 5 mg 02/16/21 17:53 02/16/21 22:13 Melatonin 5 Mg Tab PO 5 mg QHS PRN Administration Sleep Metoprolol Tartrate 25 mg 02/17/21 22:00 Metoprolol Tartrate 25 Mg Tab PO Q8HR [facility] Morphine Sulfate 2 mg 02/14/21 21:54 Morphine 2 Mg/1 Ml Inj IV Q4H PRN Pain, Moderate (4-6) Ondansetron HCl 4 mg 02/14/21 21:54 02/15/21 08:12 Ondansetron 4 Mg/2 Ml Inj IV 4 mg Q8H PRN Administration Nausea And Vomiting Simple Syrup 15 ml 02/17/21 12:34 Simple Syrup 15 Ml FEEDTUBE PRN PRN Hypoglycemia Simple Syrup 30 ml 02/17/21 12:34 Simple Syrup 15 Ml FEEDTUBE PRN PRN Hypoglycemia Sodium Bicarbonate 325 mg 02/17/21 12:34 Sodium Bicarbonate 325 Mg Tab FEEDTUBE PRN PRN For Clogged Feeding Tube Sodium Chloride 10 ml 02/14/21 22:00 02/17/21 10:32 Sodium Chloride 0.9% 10 Ml Flush Syringe IV 10 ml BID KARYN Administration Sodium Chloride 10 ml 02/14/21 21:54 Sodium Chloride 0.9% 10 Ml Flush Syringe IV PRN PRN LINE FLUSH Sodium Chloride 50 ml 02/17/21 11:30 02/17/21 11:50 Sodium Chloride 0.9% 50 Ml Ivpb IV 02/20/21 21:01 50 ml Q24HR@2100 [facility] Administration Nutrition/Malnutrition Assess - Dietary Evaluation Nutrition/Malnutrition Findings: Nutrition Notes Start: 02/15/21 12:03 Freq: Status: Active Protocol: Document 02/17/21 12:21 GB (Rec: 02/17/21 12:33 GB [email or web address]) Nutrition Notes Need for Assessment generated from: MD Order Initial or Follow up Reassessment Current Diagnosis Diabetes,Hypertension, Respiratory Failure,Stroke Other Pertinent Diagnosis hyperglycemia, STEMI Current Diet NPO, TF Labs/Tests 02/16: BUN 27, glucerna 269 Pertinent Medications azithromycin, ferrous sulfate, NaCl/Hep, NaCl Height 5 ft 4 in Weight 104.3 kg [place] Body Weight (kg) 54.54 BMI 39.4 Weight change and time frame 02/14: 108.862 kg 02/15: 104.3 kg change: -4.562 kg for -4.1% significance (on IV fluids, expect weight fluctuations) Weight Status Obese Subjective/Other Information Per discussion with RN: on high flow nasal canula, NG tube for TF. MD order for TF Percent of energy/protein needs met: TF goal rate to meet 80% or greater of estimated energy needs. Burn Absent Trauma Absent GI Symptoms None Food Allergy No Current % PO Other Minimum of two criteria No #1 Nutrition Diagnosis Other: (Specify in comment below) Comments: Comprimised PO intake, dependency for enteral feed to meet nutrition needs Etiology DM, collapse, As Evidenced by Signs and Symptoms not able to eat PO at this time, MD order for TF Is patient on ventilator? No Is Patient Ambulatory and/or Out of Bed No REE-([facility]-confined to bed) 1945.728 Kcal/Kg value to use for calculation 15 Approximate Energy Requirements Using 1565 kcal/Kg Calculation Used for Recommendations Kcal/kg Additional Notes Protein: 0.7-1 g/kg @ 104k-104g Fluids: 1 ml/kcal or per MD Nutrition Intervention Change Diet Order: Continue with NPO. Advance when medically feasible or when okay'd by [employer] DELIVERY DRIVER. Nutrition Support: Glucerna 1.2 with goal of 55ml /hr Flush 125ml/4hr Kcal 1,584 Protein (gm) 79 Fat (gm) 59 Fluid (mL) 1,062 % RDI: 100% minimal EEN Goal #1 TF at goal and tolerated each nutrition assessment. Goal #2 weight to maintain within -3% current weight for LOS Follow-Up By: 02/20/21 Additional Comments check for TF tolerance and at goal.
--- NOTE | 2021-02-17 21:24 | XRay Report ---
CHEST 1 VIEW 02/17/2021 7:20 PM INDICATION / CLINICAL INFORMATION: F/U COVID PNA. COMPARISON: 02/15/21 FINDINGS: SUPPORT DEVICES: Esophagogastric tube is present in the stomach. HEART / MEDIASTINUM: Stable. LUNGS / PLEURA: Moderately extensive bilateral pulmonary opacities are unchanged. No pneumothorax. ADDITIONAL FINDINGS: No significant additional findings. IMPRESSION: 1. No change in bilateral pneumonia. Signer Name: Sonny Lopez MD Signed: 02/17/2021 9:20 PM Workstation Name: [id number]
[2021-02-17] MEDS: HYDROmorphone 1 MG/1 ML INJ IV PRN (21:36)
[2021-02-17] MEDS: METOPROLOL TARTRATE 25 MG TAB PO SCH (21:38)
[2021-02-17] MEDS: ONDANSETRON 4 MG/2 ML INJ IV PRN (21:38)
[2021-02-17] MEDS: MELATONIN 5 MG TAB PO PRN (21:39)
[2021-02-18] MEDS: INSULIN LISPRO 100 UNIT/ML SUB-Q SCH ×6 (00:42→22:04)
[2021-02-18] MEDS: INSULIN GLARGINE 100 UNITS/ML SUB-Q SCH ×2 (00:42→21:58)
[2021-02-18] MEDS: HEPARIN/ 0.45% NACL DRIP 25,000 UNIT/500 ML BAG IV SCH ×2 (01:54→19:29)
[2021-02-18 05:04] LABS: Hematocrit 35.1 % (30.3-42.9); Hemoglobin 11.9 gm/dl (10.1-14.3); Mean Corpuscular HGB Conc 34 % (30-34); Mean Corpuscular Volume 78 fl (79-97); Platelet Count 182 K/mm3 (140-440); Red Blood Count 4.53 M/mm3 (3.65-5.03); Red Cell Distribution Width 16.3 % (13.2-15.2)
[2021-02-18] MEDS: AZITHROMYCIN/NS 500 MG/250 ML 500 MG/250 ML BAG IV SCH (05:46)
[2021-02-18] MEDS: METOPROLOL TARTRATE 25 MG TAB PO SCH ×3 (05:46→21:56)
[2021-02-18 06:10] LABS: Alanine Aminotransferase 20 units/L (7-56); BUN/Creatinine Ratio 31; Blood Urea Nitrogen 34 mg/dL (7-17); Calcium 8.8 mg/dL (8.4-10.2); Hemolysis Index 4
[2021-02-18] MEDS: cefTRIAXone/NS 2 GM/100 ML 2 GM/100 ML BAG IV SCH (09:38)
[2021-02-18] MEDS: FAMOTIDINE 20 MG/2 ML INJ IV SCH ×2 (09:39→21:59)
[2021-02-18] MEDS: dexAMETHasone 4 MG/ML VIAL IV SCH (09:39)
[2021-02-18] MEDS: ASPIRIN 81 MG TAB CHEW PO SCH (09:39)
[2021-02-18] MEDS: FERROUS SULFATE 308 MG (62mg Elemental Iron) / 7 ML ELIXIR FEEDTUBE SCH ×2 (09:39→21:58)
[2021-02-18] MEDS: CLOPIDOGREL 75 MG TAB PO SCH (09:39)
--- NOTE | 2021-02-18 09:55 | Progress Note ---
Assessment and Plan Assessment and plan: Assessment and plan: 55-year-old female with PmHx of HTN, uterine fibroids and ex-smoker admitted for acute right MCA CVA and STEMI s/p PCI in RCA, now with acute respiratory dis tress requiring continuous Bipap. Hospital Course to date: 02/16/21- Patient AAOX4, with slurred speech and Lt. sided weakness. MRI/MRA brain pending. Remains on continuous Bipap, failed optiflow trial overnight. Bilateral infiltrate noted on today CXR additional lasix was adminstered to optimize Respiratory status, However was D/C due to marginal BP concern for Hypoperfusion. Will reassess in the Am. Plan to wean off Bipap as tolerated. Patient has been NPO due to continuous Bipap. When patient is off bipap nurse to complete bedside swallow screen, if fail will place NGT so pateint can received PO meds. Low grade temp today, TMAX 101.2 in last 24hrs, Bcult pending, on IV abx, ceftriaxone and azithromycin. COVID swab result pending, ID on the case rec to start dexamethasone 6 mg IV/p.o. daily for 10 days. 02/17/21- COVID PCR can back possible, patient was already on Rocephin and azithromaci, added Remdesevir per protocol, and IV decadron was initiated. Patient was wean to heated high flow, currently on 70% FiO2 and 40L. Wean O2 supplement as tolerated for a SPO2b goal above 88%. Persistent hyperglycemia, lantus increased to 10 units. Speech eval completed, patient pass swallow, order placed for pureed diet with thin liquid. Will continue to monitor, Heparing gtt per protocol, Am labs ordered. 02/18/21-blood sugars this morning over 300. Ordered 10 units of IV insulin once. Added 5 units scheduled insulin in addition to sliding scale insulin. Diet change to diabetic diet. #Neuro: Acute right MCA CVA - 02/13/21- CT head shows microvascular angiopathy, decreased attenuation along the posterior right frontal subcortical region, no acute intracranial hemorrhage - 02/13/2021- CTA head shows decreased attenuation along the posterior right frontal lobe, no CT evidence of significant stenosis involving proximal cerebral branches particularly the proximal right MCA - 02/13/21- CTA neck shows mild atherosclerotic calcification involving the proximal internal carotid arteries bilaterally without significant stenosis - MRI brain and MRA brain and neck pending - Per EMR intial NIH was 9 - Not candidate for any intervention- out of the time window - Aspirin, Plavix, & Lipitor ordered. PO meds has been on hold due patient on continuous Bipap - Rectal ASA orderd. - Possible NGT insert if patient is to remain on Bipap or fail swallow screen - Prevent hypoperfusion, close monitor of blood pressure - Seizure precautions - PT/OT/ST eval - Neurology consulted, appreciate recommendations #CV: STEMI s/p PCI in RCA, h/o HTN #Rt. Ventricle Thrombus - 02/13/2021 Echo: EF 55%, mild concentric left ventricular Hypertrophy,suspected thrombus in right ventricle - Heparin protocol initiated - On Statin, beta-silas, Plavix and aspirin - 02/16 X1 dose rectal ASA- due to NPO status - SBP in the 110/120s. Prevent hypoperfusion, close monitoring of blood pressure- Goal SBP<160, Keep MAP>60 - proBNP:4086. 02/16Additional lasix today to optimize Respiratory status, However was D/C due to marginal BP concern for Hypoperfusion. Will reassess in the Am - Strict I&O #Respiratory: Acute hypoxic respiratory possibly due to COVID; COVID PUI - On heated high flow at 700% FiO2, 40L - Bilateral infiltrate appreciate from 02/16 CXR - 02/15 Elevated inflam. makers: DDimer>[id number], Ferrintin 837.7, LDH 766, CRP 21.50 - proBNP:4086. Additional lasix today to optimize Respiratory status, However was D/C due to marginal BP concern for Hypoperfusion. Will reassess in the Am - COVID swab pending - Continue to monitor SPO2 wean Bipap off to HFNC as tolerated for SPO2 above 88% - F/U chest Xray in the am - AM labs ordered - pulmo/CCM consulted, appreciate recommendations #GI: Dysphagia - Speech eval completed, pass swallow - Pureed diet with thin liquid order #: Acute kidney injury - improving - Initial cr. 1.5. Creatinine downtrending 1.1 today - No longer on IVFluid due to Iglesia infiltrate/fluif overload on CXR - proBNP:4086. Additional lasix today to optimize Respiratory status, However was D/C due to marginal BP concern for Hypoperfusion. Will reassess in the Am - Continue to monitor renal function. Am labs ordered - Consider nephrology consult if kidney function worsen - Strict I&Os, purewick in place #ID: acute sepsis 2/2 STEMI vs Iglesia PNA Vs COVID PNA - 02/16 Bilateral infiltrate appreciate - TMAX 100.1, no leukocytosis WBC 8.1 - Elevated inflam. makers: DDimer>[id number], Ferrintin 837.7, LDH 766, CRP 21.50 - 02/16 COVID positive, 02/16 BcultX2 pending - Procal pending - Currently on ceftriaxone and azithromycin X5days - 02/17 added remdesevir per protocol - 02/17 IV decadron [id number] - Contact/droplet precautions - AM labs ordered, F/U CXR in the am #Heme: Anemia - Hgb 12.3, MCV 77, MCH 26 - On heparin gtt per protocol, ASA and plavix - Monitor for s/s of bleeding - Bilateral SCDs for VTE proph - Monitor H&H and plts. AM labs ordered #Endo: Hyperglycemia - Hemoglobin A1c pending - Persistent hyperglycemia high dose SSI - Lantus increased to 10 units SUBQ The high probability of a clinically significant, sudden or life threatening deterioration of the [pulmonary, neuro, cardiac, ID, endocrine, heme] system(s) required my full and direct attention, intervention and personal management. The aggregate critical care time was [60] minutes. This time is in addition to time spent performing reported procedures but includes the following: [x] Data Review and interpretation [x] Patient assessment and monitoring of vital signs [x] Documentation [x] Medication orders and management I saw and evaluated the patient. Discussed with the nurse practitioner and agree with their findings and plan as documented in this note. Disposition Plan: ICU Total Time Spent with Patient (Minutes): 60 Total Time Spent with Patient (Minutes): 60 History Interval history: No acute complaints. Resting comfortably with NG tube in place and on high flow nasal cannula. States she is very happy with her care. Hospitalist Physical - Physical exam Narrative exam: General appearance: Present: no acute distress, mild distress, well-nourished - EENT Eyes: Present: PERRL ENT: hearing intact - Respiratory Respiratory effort: normal - Cardiovascular Rhythm: regular Heart Sounds: Present: S1 & S2 - Extremities Extremities: no ischemia, pulses intact, pulses symmetrical, No edema Peripheral Pulses: within normal limits - Abdominal General gastrointestinal: non-tender, non-distended - Integumentary Integumentary: Present: clear, warm, dry - Psychiatric Psychiatric: appropriate mood/affect - Neurologic Neurologic: focal deficits - Allied Health Allied health notes reviewed: nursing, ST - Constitutional Vitals: Temp Pulse Resp BP Pulse Ox 99.2 F 95 H 27 H 146/109 94 02/18/21 00:00 02/18/21 08:31 02/18/21 08:31 02/18/21 08:31 02/18/21 09:17 General appearance: Present: no acute distress, mild distress, well-nourished HEART Score - HEART Score Troponin: Troponin T 0.992 ng/mL (0.00-0.029) H* 02/15/21 03:55 Results - Labs CBC & Chem 7: 02/18/21 04:40 02/18/21 04:40 Labs: Laboratory Last Values WBC 6.6 K/mm3 (4.5-11.0) 02/18/21 04:40 RBC 4.53 M/mm3 (3.65-5.03) 02/18/21 04:40 Hgb 11.9 gm/dl (10.1-14.3) 02/18/21 04:40 Hct 35.1 % (30.3-42.9) 02/18/21 04:40 MCV 78 fl (79-97) L 02/18/21 04:40 MCH 26 pg (28-32) L 02/18/21 04:40 MCHC 34 % (30-34) 02/18/21 04:40 RDW 16.3 % (13.2-15.2) H 02/18/21 04:40 Plt Count 182 K/mm3 (140-440) 02/18/21 04:40 Lymph % (Auto) 4.9 % (13.4-35.0) L 02/15/21 03:55 Gem % (Auto) 5.3 % (0.0-7.3) 02/15/21 03:55 Eos % (Auto) 0.5 % (0.0-4.3) 02/15/21 03:55 Baso % (Auto) 0.1 % (0.0-1.8) 02/15/21 03:55 Lymph # (Auto) 0.5 K/mm3 (1.2-5.4) L 02/15/21 03:55 Gem # (Auto) 0.5 K/mm3 (0.0-0.8) 02/15/21 03:55 Eos # (Auto) 0.1 K/mm3 (0.0-0.4) 02/15/21 03:55 Baso # (Auto) 0.0 K/mm3 (0.0-0.1) 02/15/21 03:55 Add Manual Diff Complete 02/14/21 20:21 Total Counted 100 02/14/21 20:21 Seg Neutrophils % 89.2 % (40.0-70.0) H 02/15/21 03:55 Seg Neuts % (Manual) 96.0 % (40.0-70.0) H 02/14/21 20:21 Lymphocytes % (Manual) 3.0 % (13.4-35.0) L 02/14/21 20:21 Monocytes % (Manual) 1.0 % (0.0-7.3) 02/14/21 20:21 Nucleated RBC % Not Reportable 02/14/21 20:21 Seg Neutrophils # 8.4 K/mm3 (1.8-7.7) H 02/15/21 03:55 Seg Neutrophils # Man 15.0 K/mm3 (1.8-7.7) H 02/14/21 20:21 Band Neutrophils # 0.0 K/mm3 02/14/21 20:21 Lymphocytes # (Manual) 0.5 K/mm3 (1.2-5.4) L 02/14/21 20:21 Abs React Lymphs (Man) 0.0 K/mm3 02/14/21 20:21 Monocytes # (Manual) 0.2 K/mm3 (0.0-0.8) 02/14/21 20:21 Eosinophils # (Manual) 0.0 K/mm3 (0.0-0.4) 02/14/21 20:21 Basophils # (Manual) 0.0 K/mm3 (0.0-0.1) 02/14/21 20:21 Metamyelocytes # 0.0 K/mm3 02/14/21 20:21 Myelocytes # 0.0 K/mm3 02/14/21 20:21 Promyelocytes # 0.0 K/mm3 02/14/21 20:21 Blast Cells # 0.0 K/mm3 02/14/21 20:21 WBC Morphology Not Reportable 02/14/21 20:21 Hypersegmented Neuts Not Reportable 02/14/21 20:21 Hyposegmented Neuts Not Reportable 02/14/21 20:21 Hypogranular Neuts Not Reportable 02/14/21 20:21 Smudge Cells Not Reportable 02/14/21 20:21 Toxic Granulation Not Reportable 02/14/21 20:21 Toxic Vacuolation Not Reportable 02/14/21 20:21 Dohle Bodies Not Reportable 02/14/21 20:21 Pelger-Huet Anomaly Not Reportable 02/14/21 20:21 Aba Rods Not Reportable 02/14/21 20:21 Platelet Estimate Consistent w auto 02/14/21 20:21 Clumped Platelets Not Reportable 02/14/21 20:21 Plt Clumps, EDTA Not Reportable 02/14/21 20:21 Large Platelets Not Reportable 02/14/21 20:21 Giant Platelets Not Reportable 02/14/21 20:21 Platelet Satelliting Not Reportable 02/14/21 20:21 Plt Morphology Comment Not Reportable 02/14/21 20:21 RBC Morphology Not Reportable 02/14/21 20:21 Dimorphic RBCs Not Reportable 02/14/21 20:21 Polychromasia Not Reportable 02/14/21 20:21 Hypochromasia 1+ 02/14/21 20:21 Poikilocytosis Not Reportable 02/14/21 20:21 Anisocytosis Few 02/14/21 20:21 Microcytosis Not Reportable 02/14/21 20:21 Macrocytosis Not Reportable 02/14/21 20:21 Spherocytes Not Reportable 02/14/21 20:21 Pappenheimer Bodies Not Reportable 02/14/21 20:21 Sickle Cells Not Reportable 02/14/21 20:21 Target Cells Not Reportable 02/14/21 20:21 Tear Drop Cells Not Reportable 02/14/21 20:21 Ovalocytes Not Reportable 02/14/21 20:21 Helmet Cells Not Reportable 02/14/21 20:21 [place] Bodies Not Reportable 02/14/21 20:21 [place] Rings Not Reportable 02/14/21 20:21 [place] Cells Not Reportable 02/14/21 20:21 Bite Cells Not Reportable 02/14/21 20:21 Crenated Cell Not Reportable 02/14/21 20:21 Elliptocytes Not Reportable 02/14/21 20:21 Acanthocytes (Spur) Not Reportable 02/14/21 20:21 Rouleaux Not Reportable 02/14/21 20:21 Hemoglobin C Crystals Not Reportable 02/14/21 20:21 Schistocytes Not Reportable 02/14/21 20:21 Malaria parasites Not Reportable 02/14/21 20:21 Alberto Bodies Not Reportable 02/14/21 20:21 Hem Pathologist Commnt No 02/14/21 20:21 PT 15.8 Sec. (12.2-14.9) H 02/15/21 18:20 INR 1.20 (0.87-1.13) H 02/15/21 18:20 APTT 30.2 Sec. (24.2-36.6) 02/15/21 18:20 Thrombin Time 17.2 Sec. (15.1-19.6) 02/14/21 20:21 D-Dimer 3846.94 ng/mlDDU (0-234) H 02/18/21 04:40 Heparin Anti-Xa Level 0.66 U.I./ml (0.3-0.7) 02/18/21 04:40 Sodium 149 mmol/L (137-145) H 02/18/21 04:40 Potassium 4.1 mmol/L (3.6-5.0) 02/18/21 04:40 Chloride 108.9 mmol/L (98-107) H 02/18/21 04:40 Carbon Dioxide 27 mmol/L (22-30) 02/18/21 04:40 Anion Gap 17 mmol/L 02/18/21 04:40 BUN 34 mg/dL (7-17) H 02/18/21 04:40 Creatinine 1.1 mg/dL (0.6-1.2) 02/18/21 04:40 Estimated GFR > 60 ml/min 02/18/21 04:40 BUN/Creatinine Ratio 31 % 02/18/21 04:40 Glucose 318 mg/dL (65-100) H 02/18/21 04:40 POC Glucose 263 mg/dL (70-105) H 02/18/21 08:02 Calcium 8.8 mg/dL (8.4-10.2) 02/18/21 04:40 Phosphorus 3.20 mg/dL (2.5-4.5) 02/15/21 08:38 Magnesium 2.30 mg/dL (1.7-2.3) 02/16/21 02:44 Ferritin 837.7 ng/mL (10.0-200.0) H 02/15/21 18:20 Total Bilirubin 0.20 mg/dL (0.1-1.2) 02/18/21 04:40 AST 17 units/L (5-40) 02/18/21 04:40 ALT 20 units/L (7-56) 02/18/21 04:40 Alkaline Phosphatase 61 units/L (35-129) 02/18/21 04:40 Lactate Dehydrogenase 766 units/L (91-180) H 02/15/21 18:20 Troponin T 0.992 ng/mL (0.00-0.029) H* 02/15/21 03:55 C-Reactive Protein 14.50 mg/dL (0.00-1.30) H 02/18/21 04:40 NT-Pro-B Natriuret Pep 4086 pg/mL (0-900) H 02/15/21 08:38 Total Protein 6.8 g/dL (6.3-8.2) 02/18/21 04:40 Albumin 3.0 g/dL (3.9-5) L 02/18/21 04:40 Albumin/Globulin Ratio 0.8 % 02/18/21 04:40 Triglycerides 292 mg/dL (2-149) H 02/14/21 20:21 Cholesterol 199 mg/dL (50-199) 02/14/21 20:21 LDL Cholesterol Direct 105 mg/dL (50-130) 02/14/21 20:21 HDL Cholesterol 23 mg/dL (40-59) L 02/14/21 20:21 Cholesterol/HDL Ratio 8.65 % 02/14/21 20:21 Procalcitonin 0.59 ng/mL (<0.15) 02/15/21 18:20 Coronavirus (PCR) Positive (Negative) A 02/16/21 Unknown Blood Type A POSITIVE 02/14/21 20:21 Antibody Screen Negative 02/14/21 20:21 Microbiology: Microbiology 02/16/21 07:40 Peripheral/Venous Blood Culture - Preliminary NO GROWTH AFTER 48 HOURS 02/16/21 02:44 Peripheral/Venous Blood Culture - Preliminary NO GROWTH AFTER 48 HOURS Taylor/IV: Voiding Method External Female Catheter Active Medications - Current Medications Current Medications: Generic Name Dose Route Start Last Admin Trade Name Freq PRN Reason Stop Dose Admin Acetaminophen 650 mg 02/16/21 01:00 02/16/21 02:09 Acetaminophen 650 Mg Rect Supp MA 650 mg Q6H PRN Administration Pain, Mild (1-3) Hydrocodone Bitart/Acetaminophen 1 each 02/14/21 21:57 Hydrocodone/Acetaminophen 5-325 Mg Tab PO Q6H PRN Pain, Moderate (4-6) Albuterol 2.5 mg 02/14/21 21:54 Albuterol 2.5 Mg/3 Ml Nebu IH Q4HRT PRN Shortness Of Breath Lipase/Protease/Amylase 1 each 02/17/21 12:34 Lipase 10,500/Protease 25,000/Amylase 43,750 (Units) Dr Betts FEEDTUBE PRN PRN For Clogged Feeding Tube Aspirin 81 mg 02/16/21 12:00 02/18/21 09:39 Aspirin 81 Mg Tab Chew PO 81 mg QDAY KARYN Administration Atorvastatin Calcium 80 mg 02/15/21 22:00 02/17/21 21:39 Atorvastatin 40 Mg Tab PO 80 mg QHS KARYN Administration Clopidogrel Bisulfate 75 mg 02/15/21 10:00 02/18/21 09:39 Clopidogrel 75 Mg Tab PO 75 mg QDAY KARYN Administration Dexamethasone 10 mg 02/17/21 10:00 02/18/21 09:39 Dexamethasone 4 Mg/Ml Vial IV 02/26/21 10:01 10 mg Q24HR KARYN Administration Dextrose 0 ml 02/14/21 21:54 Dextrose 50% In Water (25gm) 50 Ml Syringe IV Q30MIN PRN Hypoglycemia Protocol Docusate Sodium 100 mg 02/14/21 22:04 Docusate Sodium 100 Mg Cap PO DAILY PRN Constip unreliev by MOM/or NPO Famotidine 20 mg 02/14/21 22:00 02/18/21 09:39 Famotidine 20 Mg/2 Ml Inj IV 20 mg BID KARYN Administration Ferrous Sulfate 308 mg 02/16/21 22:00 02/18/21 09:39 Ferrous Sulfate 308 Mg (62mg Elemental Iron) / 7 Ml Elixir FEEDTUBE 308 mg BID KARYN Administration Hydromorphone HCl 0.5 mg 02/14/21 21:54 02/17/21 21:36 Hydromorphone 1 Mg/1 Ml Inj IV 0.5 mg Q3H PRN Administration Pain , Severe (7-10) Ceftriaxone Sodium 2 gm in 100 mls @ 200 mls/hr 02/14/21 23:00 02/18/21 09:38 Rocephin/Ns 2 Gm/100 Ml IV 02/18/21 10:29 200 mls/hr Q24HR KARYN Administration Protocol Heparin Sodium/Sodium Chloride 25,000 unit in 500 mls @ 20 mls/hr 02/15/21 14:00 02/18/21 05:23 Heparin/ 0.45% Nacl-25,000 Unit/500 Ml IV 1,400 units/hr TITRATE KARYN 28 mls/hr Titration Protocol 1,000 UNITS/HR Azithromycin 500 mg in 250 mls @ 250 mls/hr 02/16/21 04:00 02/18/21 05:46 Zithromax/Ns IV 02/19/21 04:59 250 mls/hr Q24H KARYN Administration REMDESIVIR 100 mg/ Sodium 250 mls @ 500 mls/hr 02/18/21 21:00 Chloride IV 02/21/21 21:29 Q24HR@2100 KARYN Insulin Glargine 10 units 02/17/21 22:00 02/18/21 00:42 Insulin Glargine 100 Units/Ml SUB-Q 10 units QHS KARYN Administration Insulin Human Lispro 0 unit 02/17/21 22:00 02/18/21 08:17 Insulin Lispro 100 Unit/Ml SUB-Q 6 unit ACHS KARYN Administration Protocol Melatonin 5 mg 02/16/21 17:53 02/17/21 21:39 Melatonin 5 Mg Tab PO 5 mg QHS PRN Administration Sleep Metoprolol Tartrate 25 mg 02/17/21 22:00 02/18/21 05:46 Metoprolol Tartrate 25 Mg Tab PO 25 mg Q8HR KARYN Administration Morphine Sulfate 2 mg 02/14/21 21:54 Morphine 2 Mg/1 Ml Inj IV Q4H PRN Pain, Moderate (4-6) Ondansetron HCl 4 mg 02/14/21 21:54 02/17/21 21:38 Ondansetron 4 Mg/2 Ml Inj IV 4 mg Q8H PRN Administration Nausea And Vomiting Simple Syrup 15 ml 02/17/21 12:34 Simple Syrup 15 Ml FEEDTUBE PRN PRN Hypoglycemia Simple Syrup 30 ml 02/17/21 12:34 Simple Syrup 15 Ml FEEDTUBE PRN PRN Hypoglycemia Sodium Bicarbonate 325 mg 02/17/21 12:34 Sodium Bicarbonate 325 Mg Tab FEEDTUBE PRN PRN For Clogged Feeding Tube Sodium Chloride 10 ml 02/14/21 22:00 02/18/21 09:40 Sodium Chloride 0.9% 10 Ml Flush Syringe IV 10 ml BID KARYN Administration Sodium Chloride 10 ml 02/14/21 21:54 Sodium Chloride 0.9% 10 Ml Flush Syringe IV PRN PRN LINE FLUSH Sodium Chloride 50 ml 02/17/21 11:30 02/17/21 21:00 Sodium Chloride 0.9% 50 Ml Ivpb IV 02/20/21 21:01 Not Given Q24HR@2100 [facility] Nutrition/Malnutrition Assess - Dietary Evaluation Nutrition/Malnutrition Findings: Nutrition Notes Start: 02/15/21 12:03 Freq: Status: Active Protocol: Document 02/17/21 12:21 GB (Rec: 02/17/21 12:33 GB [id number]) Nutrition Notes Need for Assessment generated from: MD Order Initial or Follow up Reassessment Current Diagnosis Diabetes,Hypertension, Respiratory Failure,Stroke Other Pertinent Diagnosis hyperglycemia, STEMI Current Diet NPO, TF Labs/Tests 02/16: BUN 27, glucerna 269 Pertinent Medications azithromycin, ferrous sulfate, NaCl/Hep, NaCl Height 5 ft 4 in Weight 104.3 kg Kemp Body Weight (kg) 54.54 BMI 39.4 Weight change and time frame 02/14: 108.862 kg 02/15: 104.3 kg change: -4.562 kg for -4.1% significance (on IV fluids, expect weight fluctuations) Weight Status Obese Subjective/Other Information Per discussion with RN: on high flow nasal canula, NG tube for TF. MD order for TF Percent of energy/protein needs met: TF goal rate to meet 80% or greater of estimated energy needs. Burn Absent Trauma Absent GI Symptoms None Food Allergy No Current % PO Other Minimum of two criteria No #1 Nutrition Diagnosis Other: (Specify in comment below) Comments: Comprimised PO intake, dependency for enteral feed to meet nutrition needs Etiology DM, collapse, As Evidenced by Signs and Symptoms not able to eat PO at this time, MD order for TF Is patient on ventilator? No Is Patient Ambulatory and/or Out of Bed No REE-(Gates-St. Jeor-confined to bed) 1945.728 Kcal/Kg value to use for calculation 15 Approximate Energy Requirements Using 1565 kcal/Kg Calculation Used for Recommendations Kcal/kg Additional Notes Protein: 0.7-1 g/kg @ 104k-104g Fluids: 1 ml/kcal or per MD Nutrition Intervention Change Diet Order: Continue with NPO. Advance when medically feasible or when okay'd by LOGISTICS ANALYTICS MANAGER. Nutrition Support: Glucerna 1.2 with goal of 55ml /hr Flush 125ml/4hr Kcal 1,584 Protein (gm) 79 Fat (gm) 59 Fluid (mL) 1,062 % RDI: 100% minimal EEN Goal #1 TF at goal and tolerated each nutrition assessment. Goal #2 weight to maintain within -3% current weight for LOS Follow-Up By: 02/20/21 Additional Comments check for TF tolerance and at goal.
[2021-02-18] MEDS ORDERED: INSULIN REGULAR, HUMAN 100 UNITS/1 ML IV ONE (11:49)
[2021-02-18] MEDS ORDERED: INSULIN REGULAR, HUMAN 100 UNITS/1 ML SUB-Q ONE (12:35)
--- NOTE | 2021-02-18 13:05 | Progress Note ---
Assessment and Plan 55 y/o female with STEMI and acute respiratory failure 02/18/21: WEan FiO2 and flow for sats >88%. Continue therapy for COVID. Guideline therapy for CAD. Guarded prognosis. 02/17/21: Suspect family knew patient was COVID positive and did not tell us. 48 hours now behind on starting therapy, maybe longer. Agree with steroids. Will ask ID about Remdesivir and Actemra. Monitor fluids, BNP was still elevated despite normal EF. Wean FiO2 as tolerated and need to have patient manually prone. Follow up neurology recs as well as ID. Guarded prognosis. 02/16/21: Responded well to diuresis, will give more lasix today. Going for MRI today. Spoke with downstairs who is upset about lack of visitation. he also states that he has a neurologist who is willing to accept the patient to [facility] but he refused to give me the name of the physician. Will continue supportive measures. 1. Pulm- CXR appears to be more consistent with pulmonary edema and BNP is 4k. Stopped IVF's. Attempted to take of bipap but desats on cannula. Awake and tachypnic. Will give lasix 20mg IV x1 now to see if this helps with oxygen requirement. DO not feel this is infection. 2. Cards-STemi, goal directed therapy and follow up echo, done but not read yet. 3. Endo-elevated blood sugar likely related to acute mI, although patient could have underlying disease given age and weight, suggest checking A1C. 4. Guarded prognosis Subjective Date of service: 02/18/21 Principal diagnosis: CVA with left side weakness ,elevated inflammatory markers Interval history: No acute events. Still on HFNC Objective Vital Signs - 12hr 02/18/21 02/18/21 02/18/21 01:01 01:10 01:15 Temperature Pulse Rate 93 H 86 Pulse Rate [ From Monitor] Respiratory 29 H 24 Rate Respiratory 24 Rate [ Generalized] Blood Pressure 128/84 128/84 O2 Sat by Pulse 76 L 91 Oximetry 02/18/21 02/18/21 02/18/21 01:31 01:45 02:01 Temperature Pulse Rate 82 84 89 Pulse Rate [ From Monitor] Respiratory 22 21 26 H Rate Respiratory Rate [ Generalized] Blood Pressure 128/84 128/84 138/90 O2 Sat by Pulse 93 93 92 Oximetry 02/18/21 02/18/21 02/18/21 02:06 02:15 02:31 Temperature Pulse Rate 77 89 91 H Pulse Rate [ 80 From Monitor] Respiratory 26 H 25 H Rate Respiratory Rate [ Generalized] Blood Pressure 138/90 138/90 O2 Sat by Pulse 92 94 92 Oximetry 02/18/21 02/18/21 02/18/21 02:45 03:00 03:15 Temperature Pulse Rate 81 90 80 Pulse Rate [ From Monitor] Respiratory 23 22 21 Rate Respiratory Rate [ Generalized] Blood Pressure 138/90 138/93 138/93 O2 Sat by Pulse 93 94 93 Oximetry 02/18/21 02/18/21 02/18/21 03:31 03:45 04:00 Temperature Pulse Rate 78 76 77 Pulse Rate [ 80 From Monitor] Respiratory 20 19 Rate Respiratory Rate [ Generalized] Blood Pressure 138/93 138/93 O2 Sat by Pulse 95 94 92 Oximetry 02/18/21 02/18/21 02/18/21 04:01 04:15 04:31 Temperature Pulse Rate 77 76 75 Pulse Rate [ From Monitor] Respiratory 20 19 20 Rate Respiratory Rate [ Generalized] Blood Pressure 114/68 114/68 114/68 O2 Sat by Pulse 94 94 95 Oximetry 02/18/21 02/18/21 02/18/21 04:45 05:00 05:01 Temperature Pulse Rate 92 H 86 Pulse Rate [ From Monitor] Respiratory 21 20 Rate Respiratory Rate [ Generalized] Blood Pressure 114/68 145/95 O2 Sat by Pulse 96 94 95 Oximetry 02/18/21 02/18/21 02/18/21 05:15 05:30 05:45 Temperature Pulse Rate 86 86 87 Pulse Rate [ From Monitor] Respiratory 22 20 21 Rate Respiratory Rate [ Generalized] Blood Pressure 145/95 145/95 145/95 O2 Sat by Pulse 94 93 94 Oximetry 02/18/21 02/18/21 02/18/21 05:46 06:00 06:15 Temperature Pulse Rate 87 86 80 Pulse Rate [ From Monitor] Respiratory 24 21 Rate Respiratory Rate [ Generalized] Blood Pressure 145/95 167/101 167/101 O2 Sat by Pulse 92 94 Oximetry 02/18/21 02/18/21 02/18/21 06:31 06:45 07:00 Temperature Pulse Rate 78 81 82 Pulse Rate [ From Monitor] Respiratory 19 21 22 Rate Respiratory Rate [ Generalized] Blood Pressure 167/101 167/101 137/84 O2 Sat by Pulse 93 96 96 Oximetry 02/18/21 02/18/21 02/18/21 07:15 07:31 07:45 Temperature Pulse Rate 82 82 78 Pulse Rate [ From Monitor] Respiratory 24 13 24 Rate Respiratory Rate [ Generalized] Blood Pressure 137/84 137/84 137/84 O2 Sat by Pulse 96 97 95 Oximetry 02/18/21 02/18/21 02/18/21 08:00 08:15 08:31 Temperature Pulse Rate 83 92 H 95 H Pulse Rate [ 87 From Monitor] Respiratory 14 13 27 H Rate Respiratory Rate [ Generalized] Blood Pressure 146/109 146/109 146/109 O2 Sat by Pulse 96 94 95 Oximetry 02/18/21 02/18/21 02/18/21 08:45 09:01 09:15 Temperature Pulse Rate 99 H 94 H 90 Pulse Rate [ From Monitor] Respiratory 14 21 24 Rate Respiratory Rate [ Generalized] Blood Pressure 146/109 168/97 168/97 O2 Sat by Pulse 93 92 92 Oximetry 02/18/21 02/18/21 02/18/21 09:17 09:31 09:45 Temperature Pulse Rate 91 H 90 Pulse Rate [ From Monitor] Respiratory 21 25 H Rate Respiratory Rate [ Generalized] Blood Pressure 168/97 168/97 O2 Sat by Pulse 94 94 93 Oximetry 02/18/21 02/18/21 10:00 12:00 Temperature 98.5 F Pulse Rate 82 Pulse Rate [ From Monitor] Respiratory 25 H Rate Respiratory Rate [ Generalized] Blood Pressure 144/89 O2 Sat by Pulse 96 Oximetry Gastrointestinal: normoactive bowel sounds Integumentary: normal CBC and BMP: 02/19/21 06:11 02/19/21 06:11 ABG, PT/INR, D-dimer: PT/INR, D-dimer PT 15.8 Sec. (12.2-14.9) H 02/15/21 18:20 INR 1.20 (0.87-1.13) H 02/15/21 18:20 D-Dimer 3846.94 ng/mlDDU (0-234) H 02/18/21 04:40 Abnormal lab findings: Abnormal Labs 02/14/21 02/14/21 02/14/21 20:21 20:21 20:21 WBC 15.6 H RBC 5.55 H Hct 43.3 H MCV 78 L MCH 26 L MCHC RDW 16.3 H Lymph % (Auto) Lymph # (Auto) Seg Neutrophils % Seg Neuts % (Manual) 96.0 H Lymphocytes % (Manual) 3.0 L Seg Neutrophils # Seg Neutrophils # Man 15.0 H Lymphocytes # (Manual) 0.5 L PT 16.7 H INR 1.30 H D-Dimer Heparin Anti-Xa Level Sodium 131 L Potassium 5.1 H Chloride 88.4 L Carbon Dioxide 20 L BUN 34 H Creatinine 1.5 H Glucose 574 H* POC Glucose Magnesium Ferritin AST Lactate Dehydrogenase Troponin T 0.882 H* C-Reactive Protein NT-Pro-B Natriuret Pep Albumin Triglycerides 292 H HDL Cholesterol 23 L Coronavirus (PCR) 02/14/21 02/14/21 02/14/21 20:21 23:11 23:20 WBC RBC Hct MCV MCH MCHC RDW Lymph % (Auto) Lymph # (Auto) Seg Neutrophils % Seg Neuts % (Manual) Lymphocytes % (Manual) Seg Neutrophils # Seg Neutrophils # Man Lymphocytes # (Manual) PT INR D-Dimer Heparin Anti-Xa Level Sodium Potassium Chloride Carbon Dioxide BUN Creatinine Glucose POC Glucose 562 H 422 H Magnesium Ferritin AST Lactate Dehydrogenase Troponin T 0.892 H* C-Reactive Protein NT-Pro-B Natriuret Pep Albumin Triglycerides HDL Cholesterol Coronavirus (PCR) 02/15/21 02/15/21 02/15/21 03:55 03:55 05:29 WBC RBC 5.17 H Hct MCV 77 L MCH 26 L MCHC RDW 15.8 H Lymph % (Auto) 4.9 L Lymph # (Auto) 0.5 L Seg Neutrophils % 89.2 H Seg Neuts % (Manual) Lymphocytes % (Manual) Seg Neutrophils # 8.4 H Seg Neutrophils # Man Lymphocytes # (Manual) PT INR D-Dimer Heparin Anti-Xa Level Sodium 136 L Potassium Chloride 97.3 L Carbon Dioxide 18 L BUN 33 H Creatinine Glucose 402 H POC Glucose 345 H Magnesium Ferritin AST 46 H Lactate Dehydrogenase Troponin T 0.992 H* C-Reactive Protein NT-Pro-B Natriuret Pep Albumin 3.0 L Triglycerides HDL Cholesterol Coronavirus (PCR) 02/15/21 02/15/21 02/15/21 08:38 08:38 08:38 WBC RBC Hct MCV 75 L MCH 26 L MCHC 35 H RDW 16.2 H Lymph % (Auto) Lymph # (Auto) Seg Neutrophils % Seg Neuts % (Manual) Lymphocytes % (Manual) Seg Neutrophils # Seg Neutrophils # Man Lymphocytes # (Manual) PT INR D-Dimer Heparin Anti-Xa Level Sodium 135 L Potassium Chloride Carbon Dioxide 19 L BUN 31 H Creatinine Glucose 360 H POC Glucose Magnesium 2.50 H Ferritin AST Lactate Dehydrogenase Troponin T C-Reactive Protein NT-Pro-B Natriuret Pep 4086 H Albumin Triglycerides HDL Cholesterol Coronavirus (PCR) 02/15/21 02/15/21 02/15/21 11:15 17:28 18:20 WBC RBC Hct MCV MCH MCHC RDW Lymph % (Auto) Lymph # (Auto) Seg Neutrophils % Seg Neuts % (Manual) Lymphocytes % (Manual) Seg Neutrophils # Seg Neutrophils # Man Lymphocytes # (Manual) PT INR D-Dimer > 03513 H Heparin Anti-Xa Level Sodium Potassium Chloride Carbon Dioxide BUN Creatinine Glucose POC Glucose 317 H 311 H Magnesium Ferritin AST Lactate Dehydrogenase Troponin T C-Reactive Protein NT-Pro-B Natriuret Pep Albumin Triglycerides HDL Cholesterol Coronavirus (PCR) 02/15/21 02/15/21 02/15/21 18:20 18:20 18:20 WBC RBC Hct MCV MCH MCHC RDW Lymph % (Auto) Lymph # (Auto) Seg Neutrophils % Seg Neuts % (Manual) Lymphocytes % (Manual) Seg Neutrophils # Seg Neutrophils # Man Lymphocytes # (Manual) PT 15.8 H INR 1.20 H D-Dimer Heparin Anti-Xa Level Sodium Potassium Chloride Carbon Dioxide BUN Creatinine Glucose POC Glucose Magnesium Ferritin 837.7 H AST Lactate Dehydrogenase 766 H Troponin T C-Reactive Protein 21.50 H NT-Pro-B Natriuret Pep Albumin Triglycerides HDL Cholesterol Coronavirus (PCR) 02/15/21 02/16/21 02/16/21 23:45 02:44 02:44 WBC RBC Hct MCV 77 L MCH 26 L MCHC RDW 16.0 H Lymph % (Auto) Lymph # (Auto) Seg Neutrophils % Seg Neuts % (Manual) Lymphocytes % (Manual) Seg Neutrophils # Seg Neutrophils # Man Lymphocytes # (Manual) PT INR D-Dimer Heparin Anti-Xa Level Sodium Potassium Chloride Carbon Dioxide BUN 27 H Creatinine Glucose 269 H POC Glucose 203 H Magnesium Ferritin AST Lactate Dehydrogenase Troponin T C-Reactive Protein NT-Pro-B Natriuret Pep Albumin Triglycerides HDL Cholesterol Coronavirus (PCR) 02/16/21 02/16/21 02/16/21 05:47 11:50 15:00 WBC RBC Hct MCV MCH MCHC RDW Lymph % (Auto) Lymph # (Auto) Seg Neutrophils % Seg Neuts % (Manual) Lymphocytes % (Manual) Seg Neutrophils # Seg Neutrophils # Man Lymphocytes # (Manual) PT INR D-Dimer Heparin Anti-Xa Level < 0.10 L Sodium Potassium Chloride Carbon Dioxide BUN Creatinine Glucose POC Glucose 275 H 251 H Magnesium Ferritin AST Lactate Dehydrogenase Troponin T C-Reactive Protein NT-Pro-B Natriuret Pep Albumin Triglycerides HDL Cholesterol Coronavirus (PCR) 02/16/21 02/16/21 02/16/21 18:23 23:30 23:57 WBC RBC Hct MCV MCH MCHC RDW Lymph % (Auto) Lymph # (Auto) Seg Neutrophils % Seg Neuts % (Manual) Lymphocytes % (Manual) Seg Neutrophils # Seg Neutrophils # Man Lymphocytes # (Manual) PT INR D-Dimer Heparin Anti-Xa Level < 0.10 L Sodium Potassium Chloride Carbon Dioxide BUN Creatinine Glucose POC Glucose 237 H 249 H Magnesium Ferritin AST Lactate Dehydrogenase Troponin T C-Reactive Protein NT-Pro-B Natriuret Pep Albumin Triglycerides HDL Cholesterol Coronavirus (PCR) 02/16/21 02/17/21 02/17/21 Unknown 05:25 06:18 WBC RBC Hct MCV MCH MCHC RDW Lymph % (Auto) Lymph # (Auto) Seg Neutrophils % Seg Neuts % (Manual) Lymphocytes % (Manual) Seg Neutrophils # Seg Neutrophils # Man Lymphocytes # (Manual) PT INR D-Dimer Heparin Anti-Xa Level Sodium Potassium Chloride Carbon Dioxide BUN Creatinine Glucose POC Glucose 238 H 229 H Magnesium Ferritin AST Lactate Dehydrogenase Troponin T C-Reactive Protein NT-Pro-B Natriuret Pep Albumin Triglycerides HDL Cholesterol Coronavirus (PCR) Positive A 02/17/21 02/17/21 02/17/21 11:35 13:30 13:30 WBC RBC Hct MCV MCH MCHC RDW Lymph % (Auto) Lymph # (Auto) Seg Neutrophils % Seg Neuts % (Manual) Lymphocytes % (Manual) Seg Neutrophils # Seg Neutrophils # Man Lymphocytes # (Manual) PT INR D-Dimer Heparin Anti-Xa Level 0.29 L Sodium 146 H D Potassium Chloride 107.3 H Carbon Dioxide BUN 29 H Creatinine Glucose 334 H POC Glucose 279 H Magnesium Ferritin AST Lactate Dehydrogenase Troponin T C-Reactive Protein NT-Pro-B Natriuret Pep Albumin Triglycerides HDL Cholesterol Coronavirus (PCR) 02/17/21 02/17/21 02/17/21 13:30 13:30 16:42 WBC RBC Hct MCV 77 L MCH 25 L MCHC RDW 16.1 H Lymph % (Auto) Lymph # (Auto) Seg Neutrophils % Seg Neuts % (Manual) Lymphocytes % (Manual) Seg Neutrophils # Seg Neutrophils # Man Lymphocytes # (Manual) PT INR D-Dimer Heparin Anti-Xa Level Sodium 146 H Potassium Chloride Carbon Dioxide BUN 29 H Creatinine Glucose 340 H POC Glucose 291 H Magnesium Ferritin AST Lactate Dehydrogenase Troponin T C-Reactive Protein NT-Pro-B Natriuret Pep Albumin 2.7 L Triglycerides HDL Cholesterol Coronavirus (PCR) 02/17/21 02/18/21 02/18/21 21:43 04:40 04:40 WBC RBC Hct MCV 78 L MCH 26 L MCHC RDW 16.3 H Lymph % (Auto) Lymph # (Auto) Seg Neutrophils % Seg Neuts % (Manual) Lymphocytes % (Manual) Seg Neutrophils # Seg Neutrophils # Man Lymphocytes # (Manual) PT INR D-Dimer Heparin Anti-Xa Level Sodium 149 H Potassium Chloride 108.9 H Carbon Dioxide BUN 34 H Creatinine Glucose 318 H POC Glucose 288 H Magnesium Ferritin AST Lactate Dehydrogenase Troponin T C-Reactive Protein 14.50 H NT-Pro-B Natriuret Pep Albumin 3.0 L Triglycerides HDL Cholesterol Coronavirus (PCR) 02/18/21 02/18/21 02/18/21 04:40 08:02 11:30 WBC RBC Hct MCV MCH MCHC RDW Lymph % (Auto) Lymph # (Auto) Seg Neutrophils % Seg Neuts % (Manual) Lymphocytes % (Manual) Seg Neutrophils # Seg Neutrophils # Man Lymphocytes # (Manual) PT INR D-Dimer 3846.94 H Heparin Anti-Xa Level Sodium Potassium Chloride Carbon Dioxide BUN Creatinine Glucose POC Glucose 263 H 309 H Magnesium Ferritin AST Lactate Dehydrogenase Troponin T C-Reactive Protein NT-Pro-B Natriuret Pep Albumin Triglycerides HDL Cholesterol Coronavirus (PCR) 02/18/21 12:29 WBC RBC Hct MCV MCH MCHC RDW Lymph % (Auto) Lymph # (Auto) Seg Neutrophils % Seg Neuts % (Manual) Lymphocytes % (Manual) Seg Neutrophils # Seg Neutrophils # Man Lymphocytes # (Manual) PT INR D-Dimer Heparin Anti-Xa Level Sodium Potassium Chloride Carbon Dioxide BUN Creatinine Glucose POC Glucose 313 H Magnesium Ferritin AST Lactate Dehydrogenase Troponin T C-Reactive Protein NT-Pro-B Natriuret Pep Albumin Triglycerides HDL Cholesterol Coronavirus (PCR)
--- NOTE | 2021-02-18 13:11 | Event Note ---
Date: 02/18/21 I attmepted to call the yesterday but the phone number listed is not his. Found his number in the CM note. Called the today to ask him if he knew that his was COVID positive. He has now eluded that she had symptoms related to COVID 1 week prior to her presentation here. He feels that Remdesivir is not the drug for his , but will not explain why this is. I have attempted to explain to him that we are using guideline directed therapy for his . I am not sure that he understands the severity of the illness and what the clinical state is of his . I have explained to him that his 's current condition is directly related to COVID including the stroke and myocardial infarction. ID has been consulted and we are following the recommendations in their notes. He states that he is attempting to get his released and that he will obtain his own nurses for home and will participate in the experimental therapies that we are doing in the hospital. The then began using foul language during this time which I asked him to stop using. He stated he was done and then we hung up the phone.
--- NOTE | 2021-02-18 14:06 | Progress Note ---
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 Continue IV heparin. Transition to DOAC or warfarin prior to discharge. Start beta-silas therapy as tolerated. Continue supportive care for COVID-19. Subjective Date of service: 02/18/21 Principal diagnosis: CVA with left side weakness ,elevated inflammatory markers Interval history: No acute cardiac events. Continues to require BiPAP. Telemetryreviewed, sinus rhythm, no events Objective Vital Signs Temp Pulse Pulse Resp Resp BP Pulse Ox 02/18/21 12:00 98.5 F 02/18/21 10:00 82 25 H 144/89 96 02/18/21 09:45 90 25 H 168/97 93 02/18/21 09:31 91 H 21 168/97 94 02/18/21 09:17 94 02/18/21 09:15 90 24 168/97 92 02/18/21 09:01 94 H 21 168/97 92 02/18/21 08:45 99 H 14 146/109 93 02/18/21 08:31 95 H 27 H 146/109 95 02/18/21 08:15 92 H 13 146/109 94 02/18/21 08:00 83 87 14 146/109 96 02/18/21 07:45 78 24 137/84 95 02/18/21 07:31 82 13 137/84 97 02/18/21 07:15 82 24 137/84 96 02/18/21 07:00 82 22 137/84 96 02/18/21 06:45 81 21 167/101 96 02/18/21 06:31 78 19 167/101 93 02/18/21 06:15 80 21 167/101 94 02/18/21 06:00 86 24 167/101 92 02/18/21 05:46 87 145/95 02/18/21 05:45 87 21 145/95 94 02/18/21 05:30 86 20 145/95 93 02/18/21 05:15 86 22 145/95 94 02/18/21 05:01 86 20 145/95 95 02/18/21 05:00 94 02/18/21 04:45 92 H 21 114/68 96 02/18/21 04:31 75 20 114/68 95 02/18/21 04:15 76 19 114/68 94 02/18/21 04:01 77 20 114/68 94 02/18/21 04:00 77 80 92 02/18/21 03:45 76 19 138/93 94 02/18/21 03:31 78 20 138/93 95 02/18/21 03:15 80 21 138/93 93 02/18/21 03:00 90 22 138/93 94 02/18/21 02:45 81 23 138/90 93 02/18/21 02:31 91 H 25 H 138/90 92 02/18/21 02:15 89 26 H 138/90 94 02/18/21 02:06 77 80 92 02/18/21 02:01 89 26 H 138/90 92 02/18/21 01:45 84 21 128/84 93 02/18/21 01:31 82 22 128/84 93 02/18/21 01:15 86 24 128/84 91 02/18/21 01:10 24 02/18/21 01:01 93 H 29 H 128/84 76 L 02/18/21 00:45 79 28 H 122/71 97 02/18/21 00:31 81 25 H 122/71 96 02/18/21 00:25 77 80 95 02/18/21 00:15 77 22 122/71 95 02/18/21 00:01 80 23 122/71 96 02/18/21 00:00 99.2 F 02/17/21 23:45 79 26 H 137/85 94 02/17/21 23:31 77 23 137/85 95 02/17/21 23:15 77 22 137/85 94 02/17/21 23:00 82 21 137/85 96 02/17/21 22:45 85 23 155/104 92 02/17/21 22:31 86 25 H 155/104 93 02/17/21 22:15 83 18 155/104 93 02/17/21 22:06 20 02/17/21 22:00 93 H 18 92 02/17/21 21:45 99 H 27 H 155/104 92 02/17/21 21:38 102 H 155/104 02/17/21 21:36 34 H 02/17/21 21:31 99 H 32 H 155/104 94 02/17/21 21:15 101 H 39 H 155/104 94 02/17/21 21:00 95 H 30 H 173/98 95 02/17/21 20:53 100 H 31 H 173/98 95 02/17/21 20:45 97 H 32 H 173/98 93 02/17/21 20:31 97 H 32 H 173/98 92 02/17/21 20:30 98 H 32 H 173/98 93 02/17/21 20:15 102 H 26 H 173/98 93 02/17/21 20:01 102 H 24 173/98 94 02/17/21 20:00 98.4 F 02/17/21 19:45 97 H 25 H 151/103 93 02/17/21 19:31 99 H 31 H 151/103 95 02/17/21 19:27 100 H 02/17/21 19:25 99 H 93 02/17/21 19:15 100 H 35 H 151/103 94 02/17/21 19:11 95 02/17/21 19:00 99 H 34 H 151/103 95 02/17/21 18:45 97 H 33 H 160/95 94 02/17/21 18:30 98 H 28 H 160/95 94 02/17/21 18:15 103 H 34 H 148/80 95 02/17/21 18:00 101 H 33 H 148/80 93 02/17/21 17:45 99 H 34 H 159/81 94 02/17/21 17:30 105 H 33 H 159/81 92 02/17/21 17:15 104 H 28 H 158/89 92 02/17/21 17:00 107 H 36 H 158/89 90 02/17/21 16:45 77 16 145/89 97 02/17/21 16:30 95 H 22 145/89 94 02/17/21 16:15 90 33 H 151/89 96 02/17/21 16:00 99.8 F H 93 H 70 28 H 151/89 94 02/17/21 15:46 94 02/17/21 15:45 94 H 29 H 153/93 94 02/17/21 15:30 93 H 33 H 153/93 95 02/17/21 15:15 95 H 18 156/89 96 02/17/21 15:00 95 H 32 H 156/89 95 02/17/21 14:45 93 H 18 123/78 94 02/17/21 14:30 86 30 H 123/78 95 02/17/21 14:15 90 32 H 133/85 97 - Physical Examination Narrative exam: Patient was not directly examined due to COVID-19 positive status in an effort to preserve resources and limit the spread of infection. - Labs and Meds Cardiac Enzymes 02/17/21 02/18/21 Range/Units 13:30 04:40 AST 23 17 (5-40) units/L CBC 02/17/21 02/18/21 Range/Units 13:30 04:40 WBC 8.0 6.6 (4.5-11.0) K/mm3 RBC 4.92 4.53 (3.65-5.03) M/mm3 Hgb 12.4 11.9 (10.1-14.3) gm/dl Hct 37.8 35.1 (30.3-42.9) % Plt Count 172 182 (140-440) K/mm3 Comprehensive Metabolic Panel 02/17/21 02/17/21 02/18/21 Range/Units 13:30 13:30 04:40 Sodium 146 H D 146 H 149 H (137-145) mmol/L Potassium 4.2 4.0 4.1 (3.6-5.0) mmol/L Chloride 107.3 H 106.9 108.9 H (98-107) mmol/L Carbon Dioxide 22 22 27 (22-30) mmol/L BUN 29 H 29 H 34 H (7-17) mg/dL Creatinine 0.9 0.9 1.1 (0.6-1.2) mg/dL Glucose 334 H 340 H 318 H (65-100) mg/dL Calcium 8.8 8.8 8.8 (8.4-10.2) mg/dL AST 23 17 (5-40) units/L ALT 22 20 (7-56) units/L Alkaline Phosphatase 66 61 (35-129) units/L Total Protein 7.0 6.8 (6.3-8.2) g/dL Albumin 2.7 L 3.0 L (3.9-5) g/dL - Imaging and Cardiology Echo: other (02/14/2021 Echo - Normal LV and RV systolic function, thrombus in RV)
[2021-02-18] MEDS ORDERED: INSULIN REGULAR, HUMAN 100 UNITS/1 ML SUB-Q SCH (16:30)
[2021-02-18] MEDS: INSULIN REGULAR, HUMAN 100 UNITS/1 ML SUB-Q SCH ×2 (16:40→21:59)
[2021-02-18] MEDS: HYDROcodone/ACETAMINOPHEN 5-325 MG TAB PO PRN (16:41)
--- NOTE | 2021-02-18 18:13 | Progress Note ---
Assessment and Plan Cultures: 02/16/2021 blood culture: no growth SARS CoV2 PCR positive Assessment: 55-year-old female with history of diabetes mellitus, admitted on 02/14/2021 secondary to left-sided weakness, left facial droop and dysarthria for unknown amount of time likely 12-24h with a previous 2-week history of flulike symptoms: #Acute sepsis: likely secondary to bilateral pneumonia +/- STEMI +/- CVA. #Bilateral pneumonia: secondary to COVID. CXR with bilateral pneumonia. CRP 21.5, ferritin 837, LDH 766, D-dimer > 10K. #Acute hypoxemic respiratory failure: requiring BiPAP/HFNC #Elevated LFTs: from sepsis/COVID #ADAM: from sepsis/ COVID #STEMI: s/p heart cath with stent placement in the RCA. #Possible CVA: Patient was out of window of TPA per neuro. Recommendations: -continue remdesivir x 5 days. Recommendation is to continue treatment -continue dexamethasone IV/PO daily for 10 days -continue ceftriaxone and azithromycin x total 5 days -Meets criteria for Actemra, discussed with pharmacy, order placed -monitor CRP, d-dimer, anticoagulation per protocol Wily Murphy MD [facility] O: [phone] F: [phone] Subjective Date of service: 02/18/21 Principal diagnosis: CVA with left side weakness ,elevated inflammatory markers Interval history: Afebrile, normal white count. Remains on the vent. Noted Dr. Lewis' conversation with the patient's . Objective - Exam Narrative Exam: Physical exam deferred to reduce risk of transmission of COVID-19. Please refer to primary team's note. - Constitutional Vitals: Vital Signs Temp Pulse Resp BP Pulse Ox 98.5 F 86 25 H 134/97 96 02/18/21 16:00 02/18/21 16:41 02/18/21 10:00 02/18/21 16:41 02/18/21 10:00 Temperature -Last 24 Hours Temperature 98.5 F Temperature 98.5 F Temperature 99.2 F Temperature 98.4 F - Labs CBC & Chem 7: 02/18/21 04:40 02/18/21 04:40 Labs: Abnormal lab results 02/17/21 02/18/21 02/18/21 Range/Units 21:43 04:40 04:40 MCV 78 L (79-97) fl MCH 26 L (28-32) pg RDW 16.3 H (13.2-15.2) % D-Dimer (0-234) ng/mlDDU Sodium 149 H (137-145) mmol/L Chloride 108.9 H (98-107) mmol/L BUN 34 H (7-17) mg/dL Glucose 318 H (65-100) mg/dL POC Glucose 288 H (70-105) mg/dL C-Reactive Protein 14.50 H (0.00-1.30) mg/dL Albumin 3.0 L (3.9-5) g/dL 02/18/21 02/18/21 02/18/21 Range/Units 04:40 08:02 11:30 MCV (79-97) fl MCH (28-32) pg RDW (13.2-15.2) % D-Dimer 3846.94 H (0-234) ng/mlDDU Sodium (137-145) mmol/L Chloride (98-107) mmol/L BUN (7-17) mg/dL Glucose (65-100) mg/dL POC Glucose 263 H 309 H (70-105) mg/dL C-Reactive Protein (0.00-1.30) mg/dL Albumin (3.9-5) g/dL 02/18/21 Range/Units 12:29 MCV (79-97) fl MCH (28-32) pg RDW (13.2-15.2) % D-Dimer (0-234) ng/mlDDU Sodium (137-145) mmol/L Chloride (98-107) mmol/L BUN (7-17) mg/dL Glucose (65-100) mg/dL POC Glucose 313 H (70-105) mg/dL C-Reactive Protein (0.00-1.30) mg/dL Albumin (3.9-5) g/dL
[2021-02-18] MEDS: REMDESIVIR 100 MG in SODIUM CHLORIDE 0.9% 250ML 250 ML IV SCH (21:57)
[2021-02-18] MEDS: SODIUM CHLORIDE 0.9% 50 ML IVPB IV SCH (21:58)
[2021-02-18] MEDS: HYDROmorphone 1 MG/1 ML INJ IV PRN (22:00)
[2021-02-19] MEDS: AZITHROMYCIN/NS 500 MG/250 ML 500 MG/250 ML BAG IV SCH (03:17)
[2021-02-19] MEDS: HYDROcodone/ACETAMINOPHEN 5-325 MG TAB PO PRN (03:40)
[2021-02-19] MEDS: METOPROLOL TARTRATE 25 MG TAB PO SCH ×2 (05:01→13:21)
[2021-02-19 06:25] LABS: Hematocrit 36.8 % (30.3-42.9); Hemoglobin 12.1 gm/dl (10.1-14.3)
[2021-02-19 06:52] LABS: Alanine Aminotransferase 21 units/L (7-56); BUN/Creatinine Ratio 28; Blood Urea Nitrogen 28 mg/dL (7-17); Calcium 9.3 mg/dL (8.4-10.2); Hemolysis Index 2
[2021-02-19] MEDS: INSULIN LISPRO 100 UNIT/ML SUB-Q SCH ×4 (08:36→22:07)
[2021-02-19] MEDS: INSULIN REGULAR, HUMAN 100 UNITS/1 ML SUB-Q SCH ×4 (08:36→22:06)
--- NOTE | 2021-02-19 09:00 | Progress Note ---
Assessment and Plan Assessment and plan: Assessment and plan: 55-year-old female with PmHx of HTN, uterine fibroids and ex-smoker admitted for acute right MCA CVA and STEMI s/p PCI in RCA, now with acute respiratory dis tress requiring continuous Bipap. Hospital Course to date: 02/16/21- Patient AAOX4, with slurred speech and Lt. sided weakness. MRI/MRA brain pending. Remains on continuous Bipap, failed optiflow trial overnight. Bilateral infiltrate noted on today CXR additional lasix was adminstered to optimize Respiratory status, However was D/C due to marginal BP concern for Hypoperfusion. Will reassess in the Am. Plan to wean off Bipap as tolerated. Patient has been NPO due to continuous Bipap. When patient is off bipap nurse to complete bedside swallow screen, if fail will place NGT so pateint can received PO meds. Low grade temp today, TMAX 101.2 in last 24hrs, Bcult pending, on IV abx, ceftriaxone and azithromycin. COVID swab result pending, ID on the case rec to start dexamethasone 6 mg IV/p.o. daily for 10 days. 02/17/21- COVID PCR can back possible, patient was already on Rocephin and azithromaci, added Remdesevir per protocol, and IV decadron was initiated. Patient was wean to heated high flow, currently on 70% FiO2 and 40L. Wean O2 supplement as tolerated for a SPO2b goal above 88%. Persistent hyperglycemia, lantus increased to 10 units. Speech eval completed, patient pass swallow, order placed for pureed diet with thin liquid. Will continue to monitor, Heparing gtt per protocol, Am labs ordered. 02/18/21-blood sugars this morning over 300. Ordered 10 units of IV insulin once. Added 5 units scheduled insulin in addition to sliding scale insulin. Diet change to diabetic diet. 02/19/21: Transfer to floor. NG tube d/c. #Neuro: Acute right MCA CVA - 02/13/21- CT head shows microvascular angiopathy, decreased attenuation along the posterior right frontal subcortical region, no acute intracranial hemorrhage - 02/13/2021- CTA head shows decreased attenuation along the posterior right frontal lobe, no CT evidence of significant stenosis involving proximal cerebral branches particularly the proximal right MCA - 02/13/21- CTA neck shows mild atherosclerotic calcification involving the proximal internal carotid arteries bilaterally without significant stenosis - MRI brain and MRA brain and neck pending - Per EMR intial NIH was 9 - Not candidate for any intervention- out of the time window - Aspirin, Plavix, & Lipitor ordered. PO meds has been on hold due patient on continuous Bipap - Rectal ASA orderd. - Possible NGT insert if patient is to remain on Bipap or fail swallow screen - Prevent hypoperfusion, close monitor of blood pressure - Seizure precautions - PT/OT/ST eval - Neurology consulted, appreciate recommendations #CV: STEMI s/p PCI in RCA, h/o HTN #Rt. Ventricle Thrombus - 02/13/2021 Echo: EF 55%, mild concentric left ventricular Hypertrophy,suspected thrombus in right ventricle - Heparin protocol initiated - On Statin, beta-silas, Plavix and aspirin - 02/16 X1 dose rectal ASA- due to NPO status - SBP in the 110/120s. Prevent hypoperfusion, close monitoring of blood pressure- Goal SBP<160, Keep MAP>60 - proBNP:4086. 02/16Additional lasix today to optimize Respiratory status, However was D/C due to marginal BP concern for Hypoperfusion. Will reassess in the Am - Strict I&O #Respiratory: Acute hypoxic respiratory possibly due to COVID; COVID PUI - On heated high flow at 700% FiO2, 40L - Bilateral infiltrate appreciate from 02/16 CXR - 02/15 Elevated inflam. makers: DDimer>[id number], Ferrintin 837.7, LDH 766, CRP 21.50 - proBNP:4086. Additional lasix today to optimize Respiratory status, However was D/C due to marginal BP concern for Hypoperfusion. Will reassess in the Am - COVID swab pending - Continue to monitor SPO2 wean Bipap off to HFNC as tolerated for SPO2 above 88% - F/U chest Xray in the am - AM labs ordered - pulmo/CCM consulted, appreciate recommendations #GI: Dysphagia - Speech eval completed, pass swallow - Pureed diet with thin liquid order #: Acute kidney injury - improving - Initial cr. 1.5. Creatinine downtrending 1.1 today - No longer on IVFluid due to [place] infiltrate/fluif overload on CXR - proBNP:4086. Additional lasix today to optimize Respiratory status, However was D/C due to marginal BP concern for Hypoperfusion. Will reassess in the Am - Continue to monitor renal function. Am labs ordered - Consider nephrology consult if kidney function worsen - Strict I&Os, purewick in place #ID: acute sepsis 2/2 STEMI vs Iglesia PNA Vs COVID PNA - 02/16 Bilateral infiltrate appreciate - TMAX 100.1, no leukocytosis WBC 8.1 - Elevated inflam. makers: DDimer>[id number], Ferrintin 837.7, LDH 766, CRP 21.50 - 02/16 COVID positive, 02/16 BcultX2 pending - Procal pending - Currently on ceftriaxone and azithromycin X5days - 02/17 added remdesevir per protocol - 02/17 IV decadron [id number] - Contact/droplet precautions - AM labs ordered, F/U CXR in the am #Heme: Anemia - Hgb 12.3, MCV 77, MCH 26 - On heparin gtt per protocol, ASA and plavix - Monitor for s/s of bleeding - Bilateral SCDs for VTE proph - Monitor H&H and plts. AM labs ordered #Endo: Hyperglycemia - Hemoglobin A1c pending - Persistent hyperglycemia high dose SSI - Lantus increased to 10 units SUBQ The high probability of a clinically significant, sudden or life threatening deterioration of the [pulmonary, neuro, cardiac, ID, endocrine, heme] system(s) required my full and direct attention, intervention and personal management. The aggregate critical care time was [60] minutes. This time is in addition to time spent performing reported procedures but includes the following: [x] Data Review and interpretation [x] Patient assessment and monitoring of vital signs [x] Documentation [x] Medication orders and management I saw and evaluated the patient. Discussed with the nurse practitioner and agree with their findings and plan as documented in this note. Disposition Plan: ICU Total Time Spent with Patient (Minutes): 60 Total Time Spent with Patient (Minutes): 60 History Interval history: No acute complaints. Resting comfortably with NG tube in place and on high flow nasal cannula. No acute complaints this AM. Hospitalist Physical - Physical exam Narrative exam: General appearance: Present: no acute distress, mild distress, well-nourished - EENT Eyes: Present: PERRL ENT: hearing intact - Respiratory Respiratory effort: normal - Cardiovascular Rhythm: regular Heart Sounds: Present: S1 & S2 - Extremities Extremities: no ischemia, pulses intact, pulses symmetrical, No edema Peripheral Pulses: within normal limits - Abdominal General gastrointestinal: non-tender, non-distended - Integumentary Integumentary: Present: clear, warm, dry - Psychiatric Psychiatric: appropriate mood/affect - Neurologic Neurologic: focal deficits - Allied Health Allied health notes reviewed: nursing, ST - Constitutional Vitals: Temp Pulse Resp BP Pulse Ox 98.0 F 71 22 165/112 94 02/19/21 08:00 02/19/21 06:15 02/19/21 06:15 02/19/21 06:15 02/19/21 08:39 General appearance: Present: no acute distress, mild distress, well-nourished HEART Score - HEART Score Troponin: Troponin T 0.992 ng/mL (0.00-0.029) H* 02/15/21 03:55 Results - Labs CBC & Chem 7: 02/19/21 06:11 02/19/21 06:11 Labs: Laboratory Last Values WBC 6.6 K/mm3 (4.5-11.0) 02/18/21 04:40 RBC 4.53 M/mm3 (3.65-5.03) 02/18/21 04:40 Hgb 12.1 gm/dl (10.1-14.3) 02/19/21 06:11 Hct 36.8 % (30.3-42.9) 02/19/21 06:11 MCV 78 fl (79-97) L 02/18/21 04:40 MCH 26 pg (28-32) L 02/18/21 04:40 MCHC 34 % (30-34) 02/18/21 04:40 RDW 16.3 % (13.2-15.2) H 02/18/21 04:40 Plt Count 221 K/mm3 (140-440) 02/19/21 06:11 Lymph % (Auto) 4.9 % (13.4-35.0) L 02/15/21 03:55 [place] % (Auto) 5.3 % (0.0-7.3) 02/15/21 03:55 Eos % (Auto) 0.5 % (0.0-4.3) 02/15/21 03:55 Baso % (Auto) 0.1 % (0.0-1.8) 02/15/21 03:55 Lymph # (Auto) 0.5 K/mm3 (1.2-5.4) L 02/15/21 03:55 [place] # (Auto) 0.5 K/mm3 (0.0-0.8) 02/15/21 03:55 Eos # (Auto) 0.1 K/mm3 (0.0-0.4) 02/15/21 03:55 Baso # (Auto) 0.0 K/mm3 (0.0-0.1) 02/15/21 03:55 Add Manual Diff Complete 02/14/21 20:21 Total Counted 100 02/14/21 20:21 Seg Neutrophils % 89.2 % (40.0-70.0) H 02/15/21 03:55 Seg Neuts % (Manual) 96.0 % (40.0-70.0) H 02/14/21 20:21 Lymphocytes % (Manual) 3.0 % (13.4-35.0) L 02/14/21 20:21 Monocytes % (Manual) 1.0 % (0.0-7.3) 02/14/21 20:21 Nucleated RBC % Not Reportable 02/14/21 20:21 Seg Neutrophils # 8.4 K/mm3 (1.8-7.7) H 02/15/21 03:55 Seg Neutrophils # Man 15.0 K/mm3 (1.8-7.7) H 02/14/21 20:21 Band Neutrophils # 0.0 K/mm3 02/14/21 20:21 Lymphocytes # (Manual) 0.5 K/mm3 (1.2-5.4) L 02/14/21 20:21 Abs React Lymphs (Man) 0.0 K/mm3 02/14/21 20:21 Monocytes # (Manual) 0.2 K/mm3 (0.0-0.8) 02/14/21 20:21 Eosinophils # (Manual) 0.0 K/mm3 (0.0-0.4) 02/14/21 20:21 Basophils # (Manual) 0.0 K/mm3 (0.0-0.1) 02/14/21 20:21 Metamyelocytes # 0.0 K/mm3 02/14/21 20:21 Myelocytes # 0.0 K/mm3 02/14/21 20:21 Promyelocytes # 0.0 K/mm3 02/14/21 20:21 Blast Cells # 0.0 K/mm3 02/14/21 20:21 WBC Morphology Not Reportable 02/14/21 20:21 Hypersegmented Neuts Not Reportable 02/14/21 20:21 Hyposegmented Neuts Not Reportable 02/14/21 20:21 Hypogranular Neuts Not Reportable 02/14/21 20:21 Smudge Cells Not Reportable 02/14/21 20:21 Toxic Granulation Not Reportable 02/14/21 20:21 Toxic Vacuolation Not Reportable 02/14/21 20:21 Dohle Bodies Not Reportable 02/14/21 20:21 Pelger-Huet Anomaly Not Reportable 02/14/21 20:21 Aba Rods Not Reportable 02/14/21 20:21 Platelet Estimate Consistent w auto 02/14/21 20:21 Clumped Platelets Not Reportable 02/14/21 20:21 Plt Clumps, EDTA Not Reportable 02/14/21 20:21 Large Platelets Not Reportable 02/14/21 20:21 Giant Platelets Not Reportable 02/14/21 20:21 Platelet Satelliting Not Reportable 02/14/21 20:21 Plt Morphology Comment Not Reportable 02/14/21 20:21 RBC Morphology Not Reportable 02/14/21 20:21 Dimorphic RBCs Not Reportable 02/14/21 20:21 Polychromasia Not Reportable 02/14/21 20:21 Hypochromasia 1+ 02/14/21 20:21 Poikilocytosis Not Reportable 02/14/21 20:21 Anisocytosis Few 02/14/21 20:21 Microcytosis Not Reportable 02/14/21 20:21 Macrocytosis Not Reportable 02/14/21 20:21 Spherocytes Not Reportable 02/14/21 20:21 Pappenheimer Bodies Not Reportable 02/14/21 20:21 Sickle Cells Not Reportable 02/14/21 20:21 Target Cells Not Reportable 02/14/21 20:21 Tear Drop Cells Not Reportable 02/14/21 20:21 Ovalocytes Not Reportable 02/14/21 20:21 Helmet Cells Not Reportable 02/14/21 20:21 [place] Bodies Not Reportable 02/14/21 20:21 Mobile Rings Not Reportable 02/14/21 20:21 Santana Cells Not Reportable 02/14/21 20:21 Bite Cells Not Reportable 02/14/21 20:21 Crenated Cell Not Reportable 02/14/21 20:21 Elliptocytes Not Reportable 02/14/21 20:21 Acanthocytes (Spur) Not Reportable 02/14/21 20:21 Rouleaux Not Reportable 02/14/21 20:21 Hemoglobin C Crystals Not Reportable 02/14/21 20:21 Schistocytes Not Reportable 02/14/21 20:21 Malaria parasites Not Reportable 02/14/21 20:21 Alberto Bodies Not Reportable 02/14/21 20:21 Hem Pathologist Commnt No 02/14/21 20:21 PT 15.8 Sec. (12.2-14.9) H 02/15/21 18:20 INR 1.20 (0.87-1.13) H 02/15/21 18:20 APTT 30.2 Sec. (24.2-36.6) 02/15/21 18:20 Thrombin Time 17.2 Sec. (15.1-19.6) 02/14/21 20:21 D-Dimer 3846.94 ng/mlDDU (0-234) H 02/18/21 04:40 Heparin Anti-Xa Level 0.29 U.I./ml (0.3-0.7) L 02/18/21 22:34 Sodium 151 mmol/L (137-145) H 02/19/21 06:11 Potassium 3.9 mmol/L (3.6-5.0) 02/19/21 06:11 Chloride 110.6 mmol/L (98-107) H 02/19/21 06:11 Carbon Dioxide 29 mmol/L (22-30) 02/19/21 06:11 Anion Gap 15 mmol/L 02/19/21 06:11 BUN 28 mg/dL (7-17) H 02/19/21 06:11 Creatinine 1.0 mg/dL (0.6-1.2) 02/19/21 06:11 Estimated GFR > 60 ml/min 02/19/21 06:11 BUN/Creatinine Ratio 28 % 09/26/21 06:11 Glucose 191 mg/dL (65-100) H 02/19/21 06:11 POC Glucose 155 mg/dL (70-105) H 02/19/21 07:54 Calcium 9.3 mg/dL (8.4-10.2) 02/19/21 06:11 Phosphorus 3.20 mg/dL (2.5-4.5) 02/15/21 08:38 Magnesium 2.30 mg/dL (1.7-2.3) 02/16/21 02:44 Ferritin 837.7 ng/mL (10.0-200.0) H 02/15/21 18:20 Total Bilirubin 0.30 mg/dL (0.1-1.2) 02/19/21 06:11 AST 19 units/L (5-40) 02/19/21 06:11 ALT 21 units/L (7-56) 02/19/21 06:11 Alkaline Phosphatase 71 units/L (35-129) 02/19/21 06:11 Lactate Dehydrogenase 766 units/L (91-180) H 02/15/21 18:20 Troponin T 0.992 ng/mL (0.00-0.029) H* 02/15/21 03:55 C-Reactive Protein 14.50 mg/dL (0.00-1.30) H 02/18/21 04:40 NT-Pro-B Natriuret Pep 4086 pg/mL (0-900) H 02/15/21 08:38 Total Protein 7.1 g/dL (6.3-8.2) 02/19/21 06:11 Albumin 3.0 g/dL (3.9-5) L 02/19/21 06:11 Albumin/Globulin Ratio 0.7 % 02/19/21 06:11 Triglycerides 292 mg/dL (2-149) H 02/14/21 20:21 Cholesterol 199 mg/dL (50-199) 02/14/21 20:21 LDL Cholesterol Direct 105 mg/dL (50-130) 02/14/21 20:21 HDL Cholesterol 23 mg/dL (40-59) L 02/14/21 20:21 Cholesterol/HDL Ratio 8.65 % 02/14/21 20:21 Procalcitonin 0.59 ng/mL (<0.15) 02/15/21 18:20 Coronavirus (PCR) Positive (Negative) A 02/16/21 Unknown Blood Type A POSITIVE 02/14/21 20:21 Antibody Screen Negative 02/14/21 20:21 Microbiology: Microbiology 02/16/21 02:44 Peripheral/Venous Blood Culture - Preliminary NO GROWTH AFTER 72 HOURS 02/17/21 10:00 Urine,Clean Catch Urine Culture - Preliminary NO GROWTH AFTER 24 HOURS 02/16/21 07:40 Peripheral/Venous Blood Culture - Preliminary NO GROWTH AFTER 48 HOURS Taylor/IV: Voiding Method External Female Catheter Active Medications - Current Medications Current Medications: Generic Name Dose Route Start Last Admin Trade Name Freq PRN Reason Stop Dose Admin Acetaminophen 650 mg 02/16/21 01:00 02/16/21 02:09 Acetaminophen 650 Mg Rect Supp SD 650 mg Q6H PRN Administration Pain, Mild (1-3) Hydrocodone Bitart/Acetaminophen 1 each 02/14/21 21:57 02/19/21 03:40 Hydrocodone/Acetaminophen 5-325 Mg Tab PO 1 each Q6H PRN Administration Pain, Moderate (4-6) Albuterol 2.5 mg 02/14/21 21:54 Albuterol 2.5 Mg/3 Ml Nebu IH Q4HRT PRN Shortness Of Breath Lipase/Protease/Amylase 1 each 02/17/21 12:34 Lipase 10,500/Protease 25,000/Amylase 43,750 (Units) Dr Betts FEEDTUBE PRN PRN For Clogged Feeding Tube Aspirin 81 mg 02/16/21 12:00 02/18/21 09:39 Aspirin 81 Mg Tab Chew PO 81 mg QDAY KARYN Administration Atorvastatin Calcium 80 mg 02/15/21 22:00 02/18/21 21:56 Atorvastatin 40 Mg Tab PO 80 mg QHS KARYN Administration Clopidogrel Bisulfate 75 mg 02/15/21 10:00 02/18/21 09:39 Clopidogrel 75 Mg Tab PO 75 mg QDAY KARYN Administration Dexamethasone 10 mg 02/17/21 10:00 02/18/21 09:39 Dexamethasone 4 Mg/Ml Vial IV 02/26/21 10:01 10 mg Q24HR KARYN Administration Dextrose 0 ml 02/14/21 21:54 Dextrose 50% In Water (25gm) 50 Ml Syringe IV Q30MIN PRN Hypoglycemia Protocol Docusate Sodium 100 mg 02/14/21 22:04 Docusate Sodium 100 Mg Cap PO DAILY PRN Constip unreliev by MOM/or NPO Famotidine 20 mg 02/14/21 22:00 02/18/21 21:59 Famotidine 20 Mg/2 Ml Inj IV 20 mg BID KARYN Administration Ferrous Sulfate 308 mg 02/16/21 22:00 02/18/21 21:58 Ferrous Sulfate 308 Mg (62mg Elemental Iron) / 7 Ml Elixir FEEDTUBE 308 mg BID KARYN Administration Hydromorphone HCl 0.5 mg 02/14/21 21:54 02/18/21 22:00 Hydromorphone 1 Mg/1 Ml Inj IV 0.5 mg Q3H PRN Administration Pain , Severe (7-10) Heparin Sodium/Sodium Chloride 25,000 unit in 500 mls @ 20 mls/hr 02/15/21 14:00 02/18/21 23:22 Heparin/ 0.45% Nacl-25,000 Unit/500 Ml IV 1,300 units/hr TITRATE KARYN 26 mls/hr Titration Protocol 1,000 UNITS/HR REMDESIVIR 100 mg/ Sodium 250 mls @ 500 mls/hr 02/18/21 21:00 02/18/21 21:57 Chloride IV 02/21/21 21:29 500 mls/hr Q24HR@2100 [facility] Administration Insulin Glargine 10 units 02/17/21 22:00 02/18/21 21:58 Insulin Glargine 100 Units/Ml SUB-Q 10 units QHS [facility] Administration Insulin Human Lispro 0 unit 02/17/21 22:00 02/19/21 08:36 Insulin Lispro 100 Unit/Ml SUB-Q 3 unit ACHS [facility] Administration Protocol Insulin Human Regular 5 units 02/18/21 16:30 02/19/21 08:36 Insulin Regular, Human 100 Units/1 Ml SUB-Q 5 units ACHS [facility] Administration Melatonin 5 mg 02/16/21 17:53 02/17/21 21:39 Melatonin 5 Mg Tab PO 5 mg QHS PRN Administration Sleep Metoprolol Tartrate 25 mg 02/17/21 22:00 02/19/21 05:01 Metoprolol Tartrate 25 Mg Tab PO 25 mg Q8HR KARYN Administration Morphine Sulfate 2 mg 02/14/21 21:54 Morphine 2 Mg/1 Ml Inj IV Q4H PRN Pain, Moderate (4-6) Ondansetron HCl 4 mg 02/14/21 21:54 02/17/21 21:38 Ondansetron 4 Mg/2 Ml Inj IV 4 mg Q8H PRN Administration Nausea And Vomiting Simple Syrup 15 ml 02/17/21 12:34 Simple Syrup 15 Ml FEEDTUBE PRN PRN Hypoglycemia Simple Syrup 30 ml 02/17/21 12:34 Simple Syrup 15 Ml FEEDTUBE PRN PRN Hypoglycemia Sodium Bicarbonate 325 mg 02/17/21 12:34 Sodium Bicarbonate 325 Mg Tab FEEDTUBE PRN PRN For Clogged Feeding Tube Sodium Chloride 10 ml 02/14/21 22:00 02/18/21 22:04 Sodium Chloride 0.9% 10 Ml Flush Syringe IV 10 ml BID KARYN Administration Sodium Chloride 10 ml 02/14/21 21:54 Sodium Chloride 0.9% 10 Ml Flush Syringe IV PRN PRN LINE FLUSH Sodium Chloride 50 ml 02/17/21 11:30 02/18/21 21:58 Sodium Chloride 0.9% 50 Ml Ivpb IV 02/20/21 21:01 50 ml Q24HR@2100 KARYN Administration Nutrition/Malnutrition Assess - Dietary Evaluation Nutrition/Malnutrition Findings: Nutrition Notes Start: 02/15/21 12:03 Freq: Status: Active Protocol: Document 02/17/21 12:21 GB (Rec: 02/17/21 12:33 GB [id number]) Nutrition Notes Need for Assessment generated from: MD Order Initial or Follow up Reassessment Current Diagnosis Diabetes,Hypertension, Respiratory Failure,Stroke Other Pertinent Diagnosis hyperglycemia, STEMI Current Diet NPO, TF Labs/Tests 02/16: BUN 27, glucerna 269 Pertinent Medications azithromycin, ferrous sulfate, NaCl/Hep, NaCl Height 5 ft 4 in Weight 104.3 kg [place] Body Weight (kg) 54.54 BMI 39.4 Weight change and time frame 02/14: 108.862 kg 02/15: 104.3 kg change: -4.562 kg for -4.1% significance (on IV fluids, expect weight fluctuations) Weight Status Obese Subjective/Other Information Per discussion with RN: on high flow nasal canula, NG tube for TF. MD order for TF Percent of energy/protein needs met: TF goal rate to meet 80% or greater of estimated energy needs. Burn Absent Trauma Absent GI Symptoms None Food Allergy No Current % PO Other Minimum of two criteria No #1 Nutrition Diagnosis Other: (Specify in comment below) Comments: Comprimised PO intake, dependency for enteral feed to meet nutrition needs Etiology DM, collapse, As Evidenced by Signs and Symptoms not able to eat PO at this time, MD order for TF Is patient on ventilator? No Is Patient Ambulatory and/or Out of Bed No REE-([facility]-confined to bed) 1945.728 Kcal/Kg value to use for calculation 15 Approximate Energy Requirements Using 1565 kcal/Kg Calculation Used for Recommendations Kcal/kg Additional Notes Protein: 0.7-1 g/kg @ 104k-104g Fluids: 1 ml/kcal or per MD Nutrition Intervention Change Diet Order: Continue with NPO. Advance when medically feasible or when okay'd by [employer]. Nutrition Support: Glucerna 1.2 with goal of 55ml /hr Flush 125ml/4hr Kcal 1,584 Protein (gm) 79 Fat (gm) 59 Fluid (mL) 1,062 % RDI: 100% minimal EEN Goal #1 TF at goal and tolerated each nutrition assessment. Goal #2 weight to maintain within -3% current weight for LOS Follow-Up By: 02/20/21 Additional Comments check for TF tolerance and at goal.
[2021-02-19] MEDS: FAMOTIDINE 20 MG/2 ML INJ IV SCH ×2 (11:07→22:04)
[2021-02-19] MEDS: dexAMETHasone 4 MG/ML VIAL IV SCH (11:07)
[2021-02-19] MEDS: ASPIRIN 81 MG TAB CHEW PO SCH (11:07)
[2021-02-19] MEDS: FERROUS SULFATE 308 MG (62mg Elemental Iron) / 7 ML ELIXIR FEEDTUBE SCH ×2 (11:07→22:05)
[2021-02-19] MEDS: CLOPIDOGREL 75 MG TAB PO SCH (11:08)
[2021-02-19] MEDS ORDERED: FUROSEMIDE 40 MG/4 ML INJ IV NR (12:00)
--- NOTE | 2021-02-19 13:02 | Progress Note ---
Assessment and Plan 55 y/o female with STEMI and acute respiratory failure 02/19/21: continue to wean for sats >88%. Steroids and remdesivir. Feel patient is stable enough to go to COVID floor or at least Step down. Needs more free water. Patient is taking po so can be given this way. Did give lasix x1 today to help with volume given I/O record. May make Na worse. 02/18/21: WEan FiO2 and flow for sats >88%. Continue therapy for COVID. Guideline therapy for CAD. Guarded prognosis. 02/17/21: Suspect family knew patient was COVID positive and did not tell us. 48 hours now behind on starting therapy, maybe longer. Agree with steroids. Will ask ID about Remdesivir and Actemra. Monitor fluids, BNP was still elevated despite normal EF. Wean FiO2 as tolerated and need to have patient manually prone. Follow up neurology recs as well as ID. Guarded prognosis. 02/16/21: Responded well to diuresis, will give more lasix today. Going for MRI today. Spoke with downstairs who is upset about lack of visitation. he also states that he has a neurologist who is willing to accept the patient to [facility] but he refused to give me the name of the physician. Will continue supportive measures. 1. Pulm- CXR appears to be more consistent with pulmonary edema and BNP is 4k. Stopped IVF's. Attempted to take of bipap but desats on cannula. Awake and tachypnic. Will give lasix 20mg IV x1 now to see if this helps with oxygen requirement. DO not feel this is infection. 2. Cards-STemi, goal directed therapy and follow up echo, done but not read yet. 3. Endo-elevated blood sugar likely related to acute mI, although patient could have underlying disease given age and weight, suggest checking A1C. 4. Guarded prognosis Subjective Date of service: 02/19/21 Principal diagnosis: CVA with left side weakness ,elevated inflammatory markers Interval history: AWake and alert. I dropped Flow to 35 and FiO2 down to 60. sat was 99%. Still on steroids and remdesivir. per patient, thinks she may have overdosed on ivermectin. Objective Vital Signs - 12hr 02/19/21 02/19/21 02/19/21 01:31 02:01 02:31 Temperature Pulse Rate 69 82 83 Pulse Rate [ From Monitor] Respiratory 20 16 17 Rate Respiratory Rate [ Generalized] Blood Pressure 136/87 161/105 161/105 O2 Sat by Pulse 95 99 96 Oximetry 02/19/21 02/19/21 02/19/21 03:00 03:31 04:00 Temperature 98.9 F Pulse Rate 76 77 77 Pulse Rate [ 77 From Monitor] Respiratory 23 20 23 Rate Respiratory Rate [ Generalized] Blood Pressure 152/95 152/95 161/100 O2 Sat by Pulse 97 97 95 Oximetry 02/19/21 02/19/21 02/19/21 04:03 04:05 04:31 Temperature Pulse Rate 76 78 Pulse Rate [ From Monitor] Respiratory 21 Rate Respiratory Rate [ Generalized] Blood Pressure 161/100 O2 Sat by Pulse 94 96 Oximetry 02/19/21 02/19/21 02/19/21 05:00 05:31 06:00 Temperature Pulse Rate 76 82 75 Pulse Rate [ From Monitor] Respiratory 22 23 24 Rate Respiratory Rate [ Generalized] Blood Pressure 152/95 152/95 165/112 O2 Sat by Pulse 95 95 97 Oximetry 02/19/21 02/19/21 02/19/21 06:15 06:31 06:45 Temperature Pulse Rate 71 69 73 Pulse Rate [ From Monitor] Respiratory 22 22 18 Rate Respiratory Rate [ Generalized] Blood Pressure 165/112 165/112 165/112 O2 Sat by Pulse 97 96 99 Oximetry 02/19/21 02/19/21 02/19/21 07:00 07:15 07:31 Temperature Pulse Rate 68 76 76 Pulse Rate [ From Monitor] Respiratory 21 24 13 Rate Respiratory Rate [ Generalized] Blood Pressure 170/108 170/108 170/108 O2 Sat by Pulse 97 96 97 Oximetry 02/19/21 02/19/21 02/19/21 07:45 08:00 08:15 Temperature 98.0 F Pulse Rate 79 78 82 Pulse Rate [ 79 From Monitor] Respiratory 27 H 25 H 18 Rate Respiratory Rate [ Generalized] Blood Pressure 170/108 170/108 170/108 O2 Sat by Pulse 96 97 96 Oximetry 02/19/21 02/19/21 02/19/21 08:31 08:39 08:45 Temperature Pulse Rate 82 77 Pulse Rate [ From Monitor] Respiratory 27 H 28 H Rate Respiratory Rate [ Generalized] Blood Pressure 170/108 149/101 O2 Sat by Pulse 96 94 94 Oximetry 02/19/21 02/19/21 02/19/21 09:00 09:15 09:31 Temperature Pulse Rate 76 78 100 H Pulse Rate [ From Monitor] Respiratory 21 25 H 17 Rate Respiratory Rate [ Generalized] Blood Pressure 154/100 154/100 154/100 O2 Sat by Pulse 96 98 97 Oximetry 02/19/21 02/19/21 02/19/21 09:45 10:00 10:15 Temperature Pulse Rate 85 81 85 Pulse Rate [ From Monitor] Respiratory 16 19 27 H Rate Respiratory 22 Rate [ Generalized] Blood Pressure 154/100 161/96 161/96 O2 Sat by Pulse 96 95 96 Oximetry 02/19/21 02/19/21 02/19/21 10:31 10:45 11:00 Temperature Pulse Rate 76 74 75 Pulse Rate [ From Monitor] Respiratory 25 H 20 24 Rate Respiratory Rate [ Generalized] Blood Pressure 161/96 161/96 160/103 O2 Sat by Pulse 96 97 99 Oximetry 02/19/21 02/19/21 11:15 11:31 Temperature Pulse Rate 88 81 Pulse Rate [ From Monitor] Respiratory 18 20 Rate Respiratory Rate [ Generalized] Blood Pressure 160/103 174/116 O2 Sat by Pulse 98 97 Oximetry Gastrointestinal: normoactive bowel sounds Integumentary: normal CBC and BMP: 02/19/21 06:11 02/19/21 06:11 ABG, PT/INR, D-dimer: PT/INR, D-dimer PT 15.8 Sec. (12.2-14.9) H 02/15/21 18:20 INR 1.20 (0.87-1.13) H 02/15/21 18:20 D-Dimer 3846.94 ng/mlDDU (0-234) H 02/18/21 04:40 Abnormal lab findings: Abnormal Labs 02/14/21 02/14/21 02/14/21 20:21 20:21 20:21 WBC 15.6 H RBC 5.55 H Hct 43.3 H MCV 78 L MCH 26 L MCHC RDW 16.3 H Lymph % (Auto) Lymph # (Auto) Seg Neutrophils % Seg Neuts % (Manual) 96.0 H Lymphocytes % (Manual) 3.0 L Seg Neutrophils # Seg Neutrophils # Man 15.0 H Lymphocytes # (Manual) 0.5 L PT 16.7 H INR 1.30 H D-Dimer Heparin Anti-Xa Level Sodium 131 L Potassium 5.1 H Chloride 88.4 L Carbon Dioxide 20 L BUN 34 H Creatinine 1.5 H Glucose 574 H* POC Glucose Magnesium Ferritin AST Lactate Dehydrogenase Troponin T 0.882 H* C-Reactive Protein NT-Pro-B Natriuret Pep Albumin Triglycerides 292 H HDL Cholesterol 23 L Coronavirus (PCR) 02/14/21 02/14/21 02/14/21 20:21 23:11 23:20 WBC RBC Hct MCV MCH MCHC RDW Lymph % (Auto) Lymph # (Auto) Seg Neutrophils % Seg Neuts % (Manual) Lymphocytes % (Manual) Seg Neutrophils # Seg Neutrophils # Man Lymphocytes # (Manual) PT INR D-Dimer Heparin Anti-Xa Level Sodium Potassium Chloride Carbon Dioxide BUN Creatinine Glucose POC Glucose 562 H 422 H Magnesium Ferritin AST Lactate Dehydrogenase Troponin T 0.892 H* C-Reactive Protein NT-Pro-B Natriuret Pep Albumin Triglycerides HDL Cholesterol Coronavirus (PCR) 02/15/21 02/15/21 02/15/21 03:55 03:55 05:29 WBC RBC 5.17 H Hct MCV 77 L MCH 26 L MCHC RDW 15.8 H Lymph % (Auto) 4.9 L Lymph # (Auto) 0.5 L Seg Neutrophils % 89.2 H Seg Neuts % (Manual) Lymphocytes % (Manual) Seg Neutrophils # 8.4 H Seg Neutrophils # Man Lymphocytes # (Manual) PT INR D-Dimer Heparin Anti-Xa Level Sodium 136 L Potassium Chloride 97.3 L Carbon Dioxide 18 L BUN 33 H Creatinine Glucose 402 H POC Glucose 345 H Magnesium Ferritin AST 46 H Lactate Dehydrogenase Troponin T 0.992 H* C-Reactive Protein NT-Pro-B Natriuret Pep Albumin 3.0 L Triglycerides HDL Cholesterol Coronavirus (PCR) 02/15/21 02/15/21 02/15/21 08:38 08:38 08:38 WBC RBC Hct MCV 75 L MCH 26 L MCHC 35 H RDW 16.2 H Lymph % (Auto) Lymph # (Auto) Seg Neutrophils % Seg Neuts % (Manual) Lymphocytes % (Manual) Seg Neutrophils # Seg Neutrophils # Man Lymphocytes # (Manual) PT INR D-Dimer Heparin Anti-Xa Level Sodium 135 L Potassium Chloride Carbon Dioxide 19 L BUN 31 H Creatinine Glucose 360 H POC Glucose Magnesium 2.50 H Ferritin AST Lactate Dehydrogenase Troponin T C-Reactive Protein NT-Pro-B Natriuret Pep 4086 H Albumin Triglycerides HDL Cholesterol Coronavirus (PCR) 02/15/21 02/15/21 02/15/21 11:15 17:28 18:20 WBC RBC Hct MCV MCH MCHC RDW Lymph % (Auto) Lymph # (Auto) Seg Neutrophils % Seg Neuts % (Manual) Lymphocytes % (Manual) Seg Neutrophils # Seg Neutrophils # Man Lymphocytes # (Manual) PT INR D-Dimer > 39193 H Heparin Anti-Xa Level Sodium Potassium Chloride Carbon Dioxide BUN Creatinine Glucose POC Glucose 317 H 311 H Magnesium Ferritin AST Lactate Dehydrogenase Troponin T C-Reactive Protein NT-Pro-B Natriuret Pep Albumin Triglycerides HDL Cholesterol Coronavirus (PCR) 02/15/21 02/15/21 02/15/21 18:20 18:20 18:20 WBC RBC Hct MCV MCH MCHC RDW Lymph % (Auto) Lymph # (Auto) Seg Neutrophils % Seg Neuts % (Manual) Lymphocytes % (Manual) Seg Neutrophils # Seg Neutrophils # Man Lymphocytes # (Manual) PT 15.8 H INR 1.20 H D-Dimer Heparin Anti-Xa Level Sodium Potassium Chloride Carbon Dioxide BUN Creatinine Glucose POC Glucose Magnesium Ferritin 837.7 H AST Lactate Dehydrogenase 766 H Troponin T C-Reactive Protein 21.50 H NT-Pro-B Natriuret Pep Albumin Triglycerides HDL Cholesterol Coronavirus (PCR) 02/15/21 02/16/21 02/16/21 23:45 02:44 02:44 WBC RBC Hct MCV 77 L MCH 26 L MCHC RDW 16.0 H Lymph % (Auto) Lymph # (Auto) Seg Neutrophils % Seg Neuts % (Manual) Lymphocytes % (Manual) Seg Neutrophils # Seg Neutrophils # Man Lymphocytes # (Manual) PT INR D-Dimer Heparin Anti-Xa Level Sodium Potassium Chloride Carbon Dioxide BUN 27 H Creatinine Glucose 269 H POC Glucose 203 H Magnesium Ferritin AST Lactate Dehydrogenase Troponin T C-Reactive Protein NT-Pro-B Natriuret Pep Albumin Triglycerides HDL Cholesterol Coronavirus (PCR) 02/16/21 02/16/21 02/16/21 05:47 11:50 15:00 WBC RBC Hct MCV MCH MCHC RDW Lymph % (Auto) Lymph # (Auto) Seg Neutrophils % Seg Neuts % (Manual) Lymphocytes % (Manual) Seg Neutrophils # Seg Neutrophils # Man Lymphocytes # (Manual) PT INR D-Dimer Heparin Anti-Xa Level < 0.10 L Sodium Potassium Chloride Carbon Dioxide BUN Creatinine Glucose POC Glucose 275 H 251 H Magnesium Ferritin AST Lactate Dehydrogenase Troponin T C-Reactive Protein NT-Pro-B Natriuret Pep Albumin Triglycerides HDL Cholesterol Coronavirus (PCR) 02/16/21 02/16/21 02/16/21 18:23 23:30 23:57 WBC RBC Hct MCV MCH MCHC RDW Lymph % (Auto) Lymph # (Auto) Seg Neutrophils % Seg Neuts % (Manual) Lymphocytes % (Manual) Seg Neutrophils # Seg Neutrophils # Man Lymphocytes # (Manual) PT INR D-Dimer Heparin Anti-Xa Level < 0.10 L Sodium Potassium Chloride Carbon Dioxide BUN Creatinine Glucose POC Glucose 237 H 249 H Magnesium Ferritin AST Lactate Dehydrogenase Troponin T C-Reactive Protein NT-Pro-B Natriuret Pep Albumin Triglycerides HDL Cholesterol Coronavirus (PCR) 02/16/21 02/17/21 02/17/21 Unknown 05:25 06:18 WBC RBC Hct MCV MCH MCHC RDW Lymph % (Auto) Lymph # (Auto) Seg Neutrophils % Seg Neuts % (Manual) Lymphocytes % (Manual) Seg Neutrophils # Seg Neutrophils # Man Lymphocytes # (Manual) PT INR D-Dimer Heparin Anti-Xa Level Sodium Potassium Chloride Carbon Dioxide BUN Creatinine Glucose POC Glucose 238 H 229 H Magnesium Ferritin AST Lactate Dehydrogenase Troponin T C-Reactive Protein NT-Pro-B Natriuret Pep Albumin Triglycerides HDL Cholesterol Coronavirus (PCR) Positive A 02/17/21 02/17/21 02/17/21 11:35 13:30 13:30 WBC RBC Hct MCV MCH MCHC RDW Lymph % (Auto) Lymph # (Auto) Seg Neutrophils % Seg Neuts % (Manual) Lymphocytes % (Manual) Seg Neutrophils # Seg Neutrophils # Man Lymphocytes # (Manual) PT INR D-Dimer Heparin Anti-Xa Level 0.29 L Sodium 146 H D Potassium Chloride 107.3 H Carbon Dioxide BUN 29 H Creatinine Glucose 334 H POC Glucose 279 H Magnesium Ferritin AST Lactate Dehydrogenase Troponin T C-Reactive Protein NT-Pro-B Natriuret Pep Albumin Triglycerides HDL Cholesterol Coronavirus (PCR) 02/17/21 02/17/21 02/17/21 13:30 13:30 16:42 WBC RBC Hct MCV 77 L MCH 25 L MCHC RDW 16.1 H Lymph % (Auto) Lymph # (Auto) Seg Neutrophils % Seg Neuts % (Manual) Lymphocytes % (Manual) Seg Neutrophils # Seg Neutrophils # Man Lymphocytes # (Manual) PT INR D-Dimer Heparin Anti-Xa Level Sodium 146 H Potassium Chloride Carbon Dioxide BUN 29 H Creatinine Glucose 340 H POC Glucose 291 H Magnesium Ferritin AST Lactate Dehydrogenase Troponin T C-Reactive Protein NT-Pro-B Natriuret Pep Albumin 2.7 L Triglycerides HDL Cholesterol Coronavirus (PCR) 02/17/21 02/18/21 02/18/21 21:43 04:40 04:40 WBC RBC Hct MCV 78 L MCH 26 L MCHC RDW 16.3 H Lymph % (Auto) Lymph # (Auto) Seg Neutrophils % Seg Neuts % (Manual) Lymphocytes % (Manual) Seg Neutrophils # Seg Neutrophils # Man Lymphocytes # (Manual) PT INR D-Dimer Heparin Anti-Xa Level Sodium 149 H Potassium Chloride 108.9 H Carbon Dioxide BUN 34 H Creatinine Glucose 318 H POC Glucose 288 H Magnesium Ferritin AST Lactate Dehydrogenase Troponin T C-Reactive Protein 14.50 H NT-Pro-B Natriuret Pep Albumin 3.0 L Triglycerides HDL Cholesterol Coronavirus (PCR) 02/18/21 02/18/21 02/18/21 04:40 08:02 11:30 WBC RBC Hct MCV MCH MCHC RDW Lymph % (Auto) Lymph # (Auto) Seg Neutrophils % Seg Neuts % (Manual) Lymphocytes % (Manual) Seg Neutrophils # Seg Neutrophils # Man Lymphocytes # (Manual) PT INR D-Dimer 3846.94 H Heparin Anti-Xa Level Sodium Potassium Chloride Carbon Dioxide BUN Creatinine Glucose POC Glucose 263 H 309 H Magnesium Ferritin AST Lactate Dehydrogenase Troponin T C-Reactive Protein NT-Pro-B Natriuret Pep Albumin Triglycerides HDL Cholesterol Coronavirus (PCR) 02/18/21 02/18/21 02/18/21 12:29 21:56 22:34 WBC RBC Hct MCV MCH MCHC RDW Lymph % (Auto) Lymph # (Auto) Seg Neutrophils % Seg Neuts % (Manual) Lymphocytes % (Manual) Seg Neutrophils # Seg Neutrophils # Man Lymphocytes # (Manual) PT INR D-Dimer Heparin Anti-Xa Level 0.29 L Sodium Potassium Chloride Carbon Dioxide BUN Creatinine Glucose POC Glucose 313 H 284 H Magnesium Ferritin AST Lactate Dehydrogenase Troponin T C-Reactive Protein NT-Pro-B Natriuret Pep Albumin Triglycerides HDL Cholesterol Coronavirus (PCR) 02/18/21 02/19/21 02/19/21 23:52 06:11 07:54 WBC RBC Hct MCV MCH MCHC RDW Lymph % (Auto) Lymph # (Auto) Seg Neutrophils % Seg Neuts % (Manual) Lymphocytes % (Manual) Seg Neutrophils # Seg Neutrophils # Man Lymphocytes # (Manual) PT INR D-Dimer Heparin Anti-Xa Level Sodium 151 H Potassium Chloride 110.6 H Carbon Dioxide BUN 28 H Creatinine Glucose 191 H POC Glucose 272 H 155 H Magnesium Ferritin AST Lactate Dehydrogenase Troponin T C-Reactive Protein NT-Pro-B Natriuret Pep Albumin 3.0 L Triglycerides HDL Cholesterol Coronavirus (PCR) 02/19/21 12:37 WBC RBC Hct MCV MCH MCHC RDW Lymph % (Auto) Lymph # (Auto) Seg Neutrophils % Seg Neuts % (Manual) Lymphocytes % (Manual) Seg Neutrophils # Seg Neutrophils # Man Lymphocytes # (Manual) PT INR D-Dimer Heparin Anti-Xa Level Sodium Potassium Chloride Carbon Dioxide BUN Creatinine Glucose POC Glucose 233 H Magnesium Ferritin AST Lactate Dehydrogenase Troponin T C-Reactive Protein NT-Pro-B Natriuret Pep Albumin Triglycerides HDL Cholesterol Coronavirus (PCR)
[2021-02-19] MEDS: HEPARIN/ 0.45% NACL DRIP 25,000 UNIT/500 ML BAG IV SCH (15:14)
--- NOTE | 2021-02-19 16:44 | Progress Note ---
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 Continue IV heparin. Transition to DOAC or warfarin prior to discharge. Increase metoprolol to 50 mg p.o. twice daily. Continue supportive care for COVID-19. Subjective Date of service: 02/19/21 Principal diagnosis: CVA with left side weakness ,elevated inflammatory markers Interval history: No acute cardiac events. Sodium level increasing. On high flow nasal cannula. Telemetryreviewed, sinus rhythm, no events Objective Vital Signs Temp Pulse Pulse Resp Resp BP Pulse Ox 02/19/21 15:45 76 26 H 145/90 97 02/19/21 15:31 80 19 145/90 99 02/19/21 15:15 78 13 145/90 98 02/19/21 15:00 79 21 145/90 96 02/19/21 14:45 78 27 H 151/94 98 02/19/21 14:31 78 21 151/94 98 02/19/21 14:15 79 16 151/94 94 02/19/21 14:00 72 24 151/94 94 02/19/21 13:45 84 23 162/102 95 02/19/21 13:31 88 21 162/102 93 02/19/21 13:23 95 02/19/21 13:21 88 155/94 02/19/21 13:15 87 15 162/102 95 02/19/21 13:01 89 24 162/102 95 02/19/21 12:45 96 H 24 162/102 96 02/19/21 12:31 88 26 H 162/102 97 02/19/21 12:15 80 23 162/102 96 02/19/21 12:00 82 85 16 162/102 99 02/19/21 11:45 79 18 174/116 98 02/19/21 11:31 81 20 174/116 97 02/19/21 11:15 88 18 160/103 98 02/19/21 11:00 75 24 160/103 99 02/19/21 10:45 74 20 161/96 97 02/19/21 10:31 76 25 H 161/96 96 02/19/21 10:15 85 27 H 161/96 96 02/19/21 10:00 81 19 22 161/96 95 02/19/21 09:45 85 16 154/100 96 02/19/21 09:31 100 H 17 154/100 97 02/19/21 09:15 78 25 H 154/100 98 02/19/21 09:00 76 21 154/100 96 02/19/21 08:45 77 28 H 149/101 94 02/19/21 08:39 94 02/19/21 08:31 82 27 H 170/108 96 02/19/21 08:15 82 18 170/108 96 02/19/21 08:00 98.0 F 78 79 25 H 170/108 97 02/19/21 07:45 79 27 H 170/108 96 02/19/21 07:31 76 13 170/108 97 02/19/21 07:15 76 24 170/108 96 02/19/21 07:00 68 21 170/108 97 02/19/21 06:45 73 18 165/112 99 02/19/21 06:31 69 22 165/112 96 02/19/21 06:15 71 22 165/112 97 02/19/21 06:00 75 24 165/112 97 02/19/21 05:31 82 23 152/95 95 02/19/21 05:00 76 22 152/95 95 02/19/21 04:31 78 21 161/100 96 02/19/21 04:05 76 02/19/21 04:03 94 02/19/21 04:00 98.9 F 77 77 23 161/100 95 02/19/21 03:31 77 20 152/95 97 02/19/21 03:00 76 23 152/95 97 02/19/21 02:31 83 17 161/105 96 02/19/21 02:01 82 16 161/105 99 02/19/21 01:31 69 20 136/87 95 02/19/21 01:00 67 22 136/87 95 02/19/21 00:31 79 17 136/94 96 02/19/21 00:05 65 02/19/21 00:00 98.6 F 68 20 136/94 97 02/18/21 23:50 96 02/18/21 23:31 67 18 135/92 95 02/18/21 23:00 70 19 135/92 95 02/18/21 22:31 79 26 H 149/106 96 02/18/21 22:00 84 22 179/120 94 02/18/21 21:56 78 151/82 02/18/21 21:31 82 20 143/96 96 02/18/21 21:01 83 19 143/96 97 02/18/21 20:31 79 23 143/96 96 02/18/21 20:30 79 02/18/21 20:11 96 02/18/21 20:00 98.6 F 81 81 19 143/96 98 02/18/21 19:31 78 22 141/94 98 02/18/21 19:01 84 23 142/99 96 02/18/21 18:31 77 23 142/99 97 02/18/21 18:15 78 17 142/99 96 02/18/21 18:08 78 23 134/97 94 02/18/21 18:00 80 19 142/99 97 02/18/21 17:45 78 17 154/90 98 02/18/21 17:31 78 24 154/90 97 02/18/21 17:15 82 21 154/90 99 02/18/21 17:00 87 20 154/90 98 02/18/21 16:45 88 17 134/97 97 - Physical Examination Narrative exam: Patient was not directly examined due to COVID-19 positive status in an effort to preserve resources and limit the spread of infection. - Labs and Meds Cardiac Enzymes 02/19/21 Range/Units 06:11 AST 19 (5-40) units/L CBC 02/19/21 Range/Units 06:11 Hgb 12.1 (10.1-14.3) gm/dl Hct 36.8 (30.3-42.9) % Plt Count 221 (140-440) K/mm3 Comprehensive Metabolic Panel 02/19/21 Range/Units 06:11 Sodium 151 H (137-145) mmol/L Potassium 3.9 (3.6-5.0) mmol/L Chloride 110.6 H (98-107) mmol/L Carbon Dioxide 29 (22-30) mmol/L BUN 28 H (7-17) mg/dL Creatinine 1.0 (0.6-1.2) mg/dL Glucose 191 H (65-100) mg/dL Calcium 9.3 (8.4-10.2) mg/dL AST 19 (5-40) units/L ALT 21 (7-56) units/L Alkaline Phosphatase 71 (35-129) units/L Total Protein 7.1 (6.3-8.2) g/dL Albumin 3.0 L (3.9-5) g/dL - Imaging and Cardiology Echo: other (02/14/2021 Echo - Normal LV and RV systolic function, thrombus in RV)
[2021-02-19] MEDS: REMDESIVIR 100 MG in SODIUM CHLORIDE 0.9% 250ML 250 ML IV SCH (22:04)
[2021-02-19] MEDS: SODIUM CHLORIDE 0.9% 50 ML IVPB IV SCH (22:04)
[2021-02-19] MEDS: METOPROLOL TARTRATE 50 MG TAB PO SCH (22:05)
[2021-02-19] MEDS: INSULIN GLARGINE 100 UNITS/ML SUB-Q SCH (22:06)
[2021-02-20] MEDS: HEPARIN/ 0.45% NACL DRIP 25,000 UNIT/500 ML BAG IV SCH (00:20)
[2021-02-20 07:16] LABS: Hemoglobin 12.7 gm/dl (10.1-14.3); Mean Corpuscular HGB Conc 33 % (30-34); Mean Corpuscular Volume 77 fl (79-97); Platelet Count 244 K/mm3 (140-440); Red Blood Count 5.08 M/mm3 (3.65-5.03)
[2021-02-20] MEDS: INSULIN LISPRO 100 UNIT/ML SUB-Q SCH ×4 (07:30→23:09)
[2021-02-20] MEDS: INSULIN REGULAR, HUMAN 100 UNITS/1 ML SUB-Q SCH ×4 (07:30→23:09)
[2021-02-20 07:35] LABS: Alanine Aminotransferase 27 units/L (7-56); Albumin 3.1 g/dL (3.9-5); BUN/Creatinine Ratio 26; Blood Urea Nitrogen 23 mg/dL (7-17); Calcium 9.2 mg/dL (8.4-10.2); Hemolysis Index 6
[2021-02-20] MEDS ORDERED: LIP THERAPY VASELINE TP PRN (09:00)
--- NOTE | 2021-02-20 09:15 | XRay Report ---
XR chest 1V ap INDICATION / CLINICAL INFORMATION: covid 19 pna. COMPARISON: 02/17/2021 FINDINGS: SUPPORT DEVICES: Enteric catheter has been removed. HEART /PULMONARY VASCULATURE: Unchanged. LUNGS / PLEURA: Improving bibasilar airspace opacities. No sizable pleural effusion. No pneumothorax. IMPRESSION: 1. Improving airspace disease. Signer Name: Chang Gleason MD Signed: 02/20/2021 9:11 AM Workstation Name: [id number]
[2021-02-20 09:43] LABS: BUN/Creatinine Ratio 26; Blood Urea Nitrogen 23 mg/dL (7-17); Calcium 8.9 mg/dL (8.4-10.2); Hemolysis Index 3
--- NOTE | 2021-02-20 10:05 | Progress Note ---
Assessment and Plan Assessment and plan: Assessment and plan: 55-year-old female with PmHx of HTN, uterine fibroids and ex-smoker admitted for acute right MCA CVA and STEMI s/p PCI in RCA, now with acute respiratory dis tress requiring continuous Bipap. Hospital Course to date: 02/16/21- Patient AAOX4, with slurred speech and Lt. sided weakness. MRI/MRA brain pending. Remains on continuous Bipap, failed optiflow trial overnight. Bilateral infiltrate noted on today CXR additional lasix was adminstered to optimize Respiratory status, However was D/C due to marginal BP concern for Hypoperfusion. Will reassess in the Am. Plan to wean off Bipap as tolerated. Patient has been NPO due to continuous Bipap. When patient is off bipap nurse to complete bedside swallow screen, if fail will place NGT so pateint can received PO meds. Low grade temp today, TMAX 101.2 in last 24hrs, Bcult pending, on IV abx, ceftriaxone and azithromycin. COVID swab result pending, ID on the case rec to start dexamethasone 6 mg IV/p.o. daily for 10 days. 02/17/21- COVID PCR can back possible, patient was already on Rocephin and azithromaci, added Remdesevir per protocol, and IV decadron was initiated. Patient was wean to heated high flow, currently on 70% FiO2 and 40L. Wean O2 supplement as tolerated for a SPO2b goal above 88%. Persistent hyperglycemia, lantus increased to 10 units. Speech eval completed, patient pass swallow, order placed for pureed diet with thin liquid. Will continue to monitor, Heparing gtt per protocol, Am labs ordered. 02/18/21-blood sugars this morning over 300. Ordered 10 units of IV insulin once. Added 5 units scheduled insulin in addition to sliding scale insulin. Diet change to diabetic diet. 02/19/21: Transfer to floor. NG tube d/c. 02/20/21: Will get speech therapy to re-evaluate patient to see if patient can be escalated from pureed diet. Cardiology recommendations noted, BB is increased. Continue supportive management for covid 19 pneumonia. HFNC currently at 35 l/min/fio2=60%. Ok with sats > 88%. Attempted to call Durga but voicemail was to another person in chart. Will attempt to find another number to update . #Neuro: Acute right MCA CVA - 02/13/21- CT head shows microvascular angiopathy, decreased attenuation along the posterior right frontal subcortical region, no acute intracranial hemorrhage - 02/13/2021- CTA head shows decreased attenuation along the posterior right frontal lobe, no CT evidence of significant stenosis involving proximal cerebral branches particularly the proximal right MCA - 02/13/21- CTA neck shows mild atherosclerotic calcification involving the proximal internal carotid arteries bilaterally without significant stenosis - MRI brain and MRA brain and neck pending - Per EMR intial NIH was 9 - Not candidate for any intervention- out of the time window - Aspirin, Plavix, & Lipitor ordered. - Prevent hypoperfusion, close monitor of blood pressure - Seizure precautions - PT/OT/ST eval - Neurology consulted, appreciate recommendations #CV: STEMI s/p PCI in RCA, h/o HTN #Rt. Ventricle Thrombus - 02/13/2021 Echo: EF 55%, mild concentric left ventricular Hypertrophy,suspected thrombus in right ventricle - Heparin protocol initiated, ok to transition to warfarin or NOAC on d/c - On Statin, beta-silas, Plavix and aspirin - 02/16 X1 dose rectal ASA- due to NPO status - SBP in the 110/120s. Prevent hypoperfusion, close monitoring of blood pressure- Goal SBP<160, Keep MAP>60 - proBNP:4086. 02/16Additional lasix today to optimize Respiratory status, However was D/C due to marginal BP concern for Hypoperfusion. Will reassess in the Am - Strict I&O #Respiratory: Acute hypoxic respiratory possibly due to COVID; COVID PUI - On heated high flow at 700% FiO2, 40L - Bilateral infiltrate appreciate from 02/16 CXR - 02/15 Elevated inflam. makers: DDimer>[id number], Ferrintin 837.7, LDH 766, CRP 21.50 - proBNP:4086. Additional lasix today to optimize Respiratory status, However was D/C due to marginal BP concern for Hypoperfusion. Will reassess in the Am - COVID swab pending - Continue to monitor SPO2 wean Bipap off to HFNC as tolerated for SPO2 above 88% - F/U chest Xray in the am - AM labs ordered - pulmo/CCM consulted, appreciate recommendations #GI: Dysphagia - Speech eval completed, pass swallow - Pureed diet with thin liquid order #: Acute kidney injury - improving - Initial cr. 1.5. Creatinine downtrending 1.1 today - No longer on IVFluid due to [place]ia infiltrate/fluif overload on CXR - proBNP:4086. Additional lasix today to optimize Respiratory status, However was D/C due to marginal BP concern for Hypoperfusion. Will reassess in the Am - Continue to monitor renal function. Am labs ordered - Consider nephrology consult if kidney function worsen - Strict I&Os, purewick in place #ID: acute sepsis 2/2 bilateral PNA, COVID PNA - 02/16 Bilateral infiltrate appreciate - TMAX 100.1, no leukocytosis WBC 8.1 - Elevated inflam. makers: DDimer>[id number], Ferrintin 837.7, LDH 766, CRP 21.50 - 02/16 COVID positive, 02/16 BcultX2 pending - Procal pending - Currently on ceftriaxone and azithromycin X5days - 02/17 added remdesevir per protocol - 02/17 IV decadron [id number] - Contact/droplet precautions - AM labs ordered, F/U CXR in the am #Heme: Anemia - Hgb 12.3, MCV 77, MCH 26 - On heparin gtt per protocol, ASA and plavix - Monitor for s/s of bleeding - Bilateral SCDs for VTE proph - Monitor H&H and plts. AM labs ordered #Endo: Hyperglycemia - Hemoglobin A1c pending - Persistent hyperglycemia high dose SSI - Lantus increased to 10 units SUBQ History Interval history: Only complaining about food this AM. No distress otherwise. Hospitalist Physical - Physical exam Narrative exam: General appearance: Present: no acute distress, mild distress, well-nourished - EENT Eyes: Present: PERRL ENT: hearing intact - Respiratory Respiratory effort: normal - Cardiovascular Rhythm: regular Heart Sounds: Present: S1 & S2 - Extremities Extremities: no ischemia, pulses intact, pulses symmetrical, No edema Peripheral Pulses: within normal limits - Abdominal General gastrointestinal: non-tender, non-distended - Integumentary Integumentary: Present: clear, warm, dry - Psychiatric Psychiatric: appropriate mood/affect - Neurologic Neurologic: focal deficits - Allied Health Allied health notes reviewed: nursing, ST - Constitutional Vitals: Temp Pulse Resp BP Pulse Ox 98.0 F 69 20 145/96 97 02/20/21 00:00 02/20/21 00:00 02/20/21 00:00 02/20/21 00:00 02/20/21 05:00 General appearance: Present: no acute distress, mild distress, well-nourished HEART Score - HEART Score Troponin: Troponin T 0.992 ng/mL (0.00-0.029) H* 02/15/21 03:55 Results - Labs CBC & Chem 7: 02/20/21 06:39 02/20/21 08:45 Labs: Laboratory Last Values WBC 6.2 K/mm3 (4.5-11.0) 02/20/21 06:39 RBC 5.08 M/mm3 (3.65-5.03) H 02/20/21 06:39 Hgb 12.7 gm/dl (10.1-14.3) 02/20/21 06:39 Hct 39.0 % (30.3-42.9) 02/20/21 06:39 MCV 77 fl (79-97) L 02/20/21 06:39 MCH 25 pg (28-32) L 02/20/21 06:39 MCHC 33 % (30-34) 02/20/21 06:39 RDW 16.0 % (13.2-15.2) H 02/20/21 06:39 Plt Count 244 K/mm3 (140-440) 02/20/21 06:39 Lymph % (Auto) 4.9 % (13.4-35.0) L 02/15/21 03:55 Bremer % (Auto) 5.3 % (0.0-7.3) 02/15/21 03:55 Eos % (Auto) 0.5 % (0.0-4.3) 02/15/21 03:55 Baso % (Auto) 0.1 % (0.0-1.8) 02/15/21 03:55 Lymph # (Auto) 0.5 K/mm3 (1.2-5.4) L 02/15/21 03:55 Bremer # (Auto) 0.5 K/mm3 (0.0-0.8) 02/15/21 03:55 Eos # (Auto) 0.1 K/mm3 (0.0-0.4) 02/15/21 03:55 Baso # (Auto) 0.0 K/mm3 (0.0-0.1) 02/15/21 03:55 Add Manual Diff Complete 02/14/21 20:21 Total Counted 100 02/14/21 20:21 Seg Neutrophils % 89.2 % (40.0-70.0) H 02/15/21 03:55 Seg Neuts % (Manual) 96.0 % (40.0-70.0) H 02/14/21 20:21 Lymphocytes % (Manual) 3.0 % (13.4-35.0) L 02/14/21 20:21 Monocytes % (Manual) 1.0 % (0.0-7.3) 02/14/21 20:21 Nucleated RBC % Not Reportable 02/14/21 20:21 Seg Neutrophils # 8.4 K/mm3 (1.8-7.7) H 02/15/21 03:55 Seg Neutrophils # Man 15.0 K/mm3 (1.8-7.7) H 02/14/21 20:21 Band Neutrophils # 0.0 K/mm3 02/14/21 20:21 Lymphocytes # (Manual) 0.5 K/mm3 (1.2-5.4) L 02/14/21 20:21 Abs React Lymphs (Man) 0.0 K/mm3 02/14/21 20:21 Monocytes # (Manual) 0.2 K/mm3 (0.0-0.8) 02/14/21 20:21 Eosinophils # (Manual) 0.0 K/mm3 (0.0-0.4) 02/14/21 20:21 Basophils # (Manual) 0.0 K/mm3 (0.0-0.1) 02/14/21 20:21 Metamyelocytes # 0.0 K/mm3 02/14/21 20:21 Myelocytes # 0.0 K/mm3 02/14/21 20:21 Promyelocytes # 0.0 K/mm3 02/14/21 20:21 Blast Cells # 0.0 K/mm3 02/14/21 20:21 WBC Morphology Not Reportable 02/14/21 20:21 Hypersegmented Neuts Not Reportable 02/14/21 20:21 Hyposegmented Neuts Not Reportable 02/14/21 20:21 Hypogranular Neuts Not Reportable 02/14/21 20:21 Smudge Cells Not Reportable 02/14/21 20:21 Toxic Granulation Not Reportable 02/14/21 20:21 Toxic Vacuolation Not Reportable 02/14/21 20:21 Dohle Bodies Not Reportable 02/14/21 20:21 Pelger-Huet Anomaly Not Reportable 02/14/21 20:21 Aba Rods Not Reportable 02/14/21 20:21 Platelet Estimate Consistent w auto 02/14/21 20:21 Clumped Platelets Not Reportable 02/14/21 20:21 Plt Clumps, EDTA Not Reportable 02/14/21 20:21 Large Platelets Not Reportable 02/14/21 20:21 Giant Platelets Not Reportable 02/14/21 20:21 Platelet Satelliting Not Reportable 02/14/21 20:21 Plt Morphology Comment Not Reportable 02/14/21 20:21 RBC Morphology Not Reportable 02/14/21 20:21 Dimorphic RBCs Not Reportable 02/14/21 20:21 Polychromasia Not Reportable 02/14/21 20:21 Hypochromasia 1+ 02/14/21 20:21 Poikilocytosis Not Reportable 02/14/21 20:21 Anisocytosis Few 02/14/21 20:21 Microcytosis Not Reportable 02/14/21 20:21 Macrocytosis Not Reportable 02/14/21 20:21 Spherocytes Not Reportable 02/14/21 20:21 Pappenheimer Bodies Not Reportable 02/14/21 20:21 Sickle Cells Not Reportable 02/14/21 20:21 Target Cells Not Reportable 02/14/21 20:21 Tear Drop Cells Not Reportable 02/14/21 20:21 Ovalocytes Not Reportable 02/14/21 20:21 Helmet Cells Not Reportable 02/14/21 20:21 [place] Bodies Not Reportable 02/14/21 20:21 Dale Rings Not Reportable 02/14/21 20:21 Santana Cells Not Reportable 02/14/21 20:21 Bite Cells Not Reportable 02/14/21 20:21 Crenated Cell Not Reportable 02/14/21 20:21 Elliptocytes Not Reportable 02/14/21 20:21 Acanthocytes (Spur) Not Reportable 02/14/21 20:21 Rouleaux Not Reportable 02/14/21 20:21 Hemoglobin C Crystals Not Reportable 02/14/21 20:21 Schistocytes Not Reportable 02/14/21 20:21 Malaria parasites Not Reportable 02/14/21 20:21 Alberto Bodies Not Reportable 02/14/21 20:21 Hem Pathologist Commnt No 02/14/21 20:21 PT 15.8 Sec. (12.2-14.9) H 02/15/21 18:20 INR 1.20 (0.87-1.13) H 02/15/21 18:20 APTT 30.2 Sec. (24.2-36.6) 02/15/21 18:20 Thrombin Time 17.2 Sec. (15.1-19.6) 02/14/21 20:21 D-Dimer 4275.78 ng/mlDDU (0-234) H 02/20/21 06:39 Heparin Anti-Xa Level 0.26 U.I./ml (0.3-0.7) L 02/19/21 23:34 Sodium 151 mmol/L (137-145) H 02/20/21 08:45 Potassium 3.6 mmol/L (3.6-5.0) 02/20/21 08:45 Chloride 111.4 mmol/L (98-107) H 02/20/21 08:45 Carbon Dioxide 29 mmol/L (22-30) 02/20/21 08:45 Anion Gap 14 mmol/L 02/20/21 08:45 BUN 23 mg/dL (7-17) H 02/20/21 08:45 Creatinine 0.9 mg/dL (0.6-1.2) 02/20/21 08:45 Estimated GFR > 60 ml/min 02/20/21 08:45 BUN/Creatinine Ratio 26 % 02/20/21 08:45 Glucose 140 mg/dL (65-100) H 02/20/21 08:45 POC Glucose 298 mg/dL (70-105) H 02/19/21 21:28 Calcium 8.9 mg/dL (8.4-10.2) 02/20/21 08:45 Phosphorus 3.20 mg/dL (2.5-4.5) 02/15/21 08:38 Magnesium 2.30 mg/dL (1.7-2.3) 02/16/21 02:44 Ferritin 915.5 ng/mL (10.0-200.0) H 02/20/21 06:39 Total Bilirubin 0.30 mg/dL (0.1-1.2) 02/20/21 06:39 AST 36 units/L (5-40) 02/20/21 06:39 ALT 27 units/L (7-56) 02/20/21 06:39 Alkaline Phosphatase 74 units/L (35-129) 02/20/21 06:39 Lactate Dehydrogenase 645 units/L (91-180) H 02/20/21 06:39 Troponin T 0.992 ng/mL (0.00-0.029) H* 02/15/21 03:55 C-Reactive Protein 3.60 mg/dL (0.00-1.30) H 02/20/21 06:39 NT-Pro-B Natriuret Pep 4086 pg/mL (0-900) H 02/15/21 08:38 Total Protein 7.0 g/dL (6.3-8.2) 02/20/21 06:39 Albumin 3.1 g/dL (3.9-5) L 02/20/21 06:39 Albumin/Globulin Ratio 0.8 % 02/20/21 06:39 Triglycerides 292 mg/dL (2-149) H 02/14/21 20:21 Cholesterol 199 mg/dL (50-199) 02/14/21 20:21 LDL Cholesterol Direct 105 mg/dL (50-130) 02/14/21 20:21 HDL Cholesterol 23 mg/dL (40-59) L 02/14/21 20:21 Cholesterol/HDL Ratio 8.65 % 02/14/21 20:21 Procalcitonin 0.59 ng/mL (<0.15) 02/15/21 18:20 Coronavirus (PCR) Positive (Negative) A 02/16/21 Unknown Blood Type A POSITIVE 02/14/21 20:21 Antibody Screen Negative 02/14/21 20:21 Microbiology: Microbiology 02/16/21 07:40 Peripheral/Venous Blood Culture - Preliminary NO GROWTH AFTER 4 DAYS 02/16/21 02:44 Peripheral/Venous Blood Culture - Preliminary NO GROWTH AFTER 4 DAYS 02/17/21 10:00 Urine,Clean Catch Urine Culture - Final NO GROWTH AFTER 48 HOURS Taylor/IV: Voiding Method External Female Catheter Active Medications - Current Medications Current Medications: Generic Name Dose Route Start Last Admin Trade Name Freq PRN Reason Stop Dose Admin Acetaminophen 650 mg 02/16/21 01:00 02/16/21 02:09 Acetaminophen 650 Mg Rect Supp IA 650 mg Q6H PRN Administration Pain, Mild (1-3) Hydrocodone Bitart/Acetaminophen 1 each 02/14/21 21:57 02/19/21 03:40 Hydrocodone/Acetaminophen 5-325 Mg Tab PO 1 each Q6H PRN Administration Pain, Moderate (4-6) Albuterol 2.5 mg 02/14/21 21:54 Albuterol 2.5 Mg/3 Ml Nebu IH Q4HRT PRN Shortness Of Breath Lipase/Protease/Amylase 1 each 02/17/21 12:34 Lipase 10,500/Protease 25,000/Amylase 43,750 (Units) Dr Betts FEEDTUBE PRN PRN For Clogged Feeding Tube Aspirin 81 mg 02/16/21 12:00 02/19/21 11:07 Aspirin 81 Mg Tab Chew PO 81 mg QDAY KARYN Administration Atorvastatin Calcium 80 mg 02/15/21 22:00 02/19/21 22:04 Atorvastatin 40 Mg Tab PO 80 mg QHS KARYN Administration Clopidogrel Bisulfate 75 mg 02/15/21 10:00 02/19/21 11:08 Clopidogrel 75 Mg Tab PO 75 mg QDAY KARYN Administration Dexamethasone 10 mg 02/17/21 10:00 02/19/21 11:07 Dexamethasone 4 Mg/Ml Vial IV 02/26/21 10:01 10 mg Q24HR KARYN Administration Dextrose 0 ml 02/14/21 21:54 Dextrose 50% In Water (25gm) 50 Ml Syringe IV Q30MIN PRN Hypoglycemia Protocol Docusate Sodium 100 mg 02/14/21 22:04 Docusate Sodium 100 Mg Cap PO DAILY PRN Constip unreliev by MOM/or NPO Famotidine 20 mg 02/14/21 22:00 02/19/21 22:04 Famotidine 20 Mg/2 Ml Inj IV 20 mg BID KARYN Administration Ferrous Sulfate 308 mg 02/16/21 22:00 02/19/21 22:05 Ferrous Sulfate 308 Mg (62mg Elemental Iron) / 7 Ml Elixir FEEDTUBE 308 mg BID KARYN Administration Hydromorphone HCl 0.5 mg 02/14/21 21:54 02/18/21 22:00 Hydromorphone 1 Mg/1 Ml Inj IV 0.5 mg Q3H PRN Administration Pain , Severe (7-10) Hydrophilic Ointment 1 applic 02/20/21 09:00 Lip Therapy Vaseline TP DIRECT PRN Dry Lips Heparin Sodium/Sodium Chloride 25,000 unit in 500 mls @ 20 mls/hr 02/15/21 14:00 02/20/21 00:20 Heparin/ 0.45% Nacl-25,000 Unit/500 Ml IV 1,300 units/hr TITRATE KARYN 26 mls/hr Administration Protocol 1,000 UNITS/HR REMDESIVIR 100 mg/ Sodium 250 mls @ 500 mls/hr 02/18/21 21:00 02/19/21 23:36 Chloride IV 02/21/21 21:29 Infused Q24HR@2100 [facility] Infusion Insulin Glargine 10 units 02/17/21 22:00 02/19/21 22:06 Insulin Glargine 100 Units/Ml SUB-Q 10 units QHS [facility] Administration Insulin Human Lispro 0 unit 02/17/21 22:00 02/19/21 22:07 Insulin Lispro 100 Unit/Ml SUB-Q 6 unit [facility] Administration Protocol Insulin Human Regular 5 units 02/18/21 16:30 02/19/21 22:06 Insulin Regular, Human 100 Units/1 Ml SUB-Q 5 units [facility]CH[facility] Administration Melatonin 5 mg 02/16/21 17:53 02/17/21 21:39 Melatonin 5 Mg Tab PO 5 mg QHS PRN Administration Sleep Metoprolol Tartrate 50 mg 02/19/21 22:00 02/19/21 22:05 Metoprolol Tartrate 50 Mg Tab PO 50 mg BID [facility] Administration Morphine Sulfate 2 mg 02/14/21 21:54 Morphine 2 Mg/1 Ml Inj IV Q4H PRN Pain, Moderate (4-6) Ondansetron HCl 4 mg 02/14/21 21:54 02/17/21 21:38 Ondansetron 4 Mg/2 Ml Inj IV 4 mg Q8H PRN Administration Nausea And Vomiting Simple Syrup 15 ml 02/17/21 12:34 Simple Syrup 15 Ml FEEDTUBE PRN PRN Hypoglycemia Simple Syrup 30 ml 02/17/21 12:34 Simple Syrup 15 Ml FEEDTUBE PRN PRN Hypoglycemia Sodium Bicarbonate 325 mg 02/17/21 12:34 Sodium Bicarbonate 325 Mg Tab FEEDTUBE PRN PRN For Clogged Feeding Tube Sodium Chloride 10 ml 02/14/21 22:00 02/19/21 22:08 Sodium Chloride 0.9% 10 Ml Flush Syringe IV 10 ml BID KARYN Administration Sodium Chloride 10 ml 02/14/21 21:54 Sodium Chloride 0.9% 10 Ml Flush Syringe IV PRN PRN LINE FLUSH Sodium Chloride 50 ml 02/17/21 11:30 02/19/21 22:04 Sodium Chloride 0.9% 50 Ml Ivpb IV 02/20/21 21:01 50 ml Q24HR@2100 KARYN Administration Nutrition/Malnutrition Assess - Dietary Evaluation Nutrition/Malnutrition Findings: Nutrition Notes Start: 02/15/21 12:03 Freq: Status: Active Protocol: Document 02/17/21 12:21 GB (Rec: 02/17/21 12:33 GB [id number]) Nutrition Notes Need for Assessment generated from: MD Order Initial or Follow up Reassessment Current Diagnosis Diabetes,Hypertension, Respiratory Failure,Stroke Other Pertinent Diagnosis hyperglycemia, STEMI Current Diet NPO, TF Labs/Tests 02/16: BUN 27, glucerna 269 Pertinent Medications azithromycin, ferrous sulfate, NaCl/Hep, NaCl Height 5 ft 4 in Weight 104.3 kg [place] Body Weight (kg) 54.54 BMI 39.4 Weight change and time frame 02/14: 108.862 kg 02/15: 104.3 kg change: -4.562 kg for -4.1% significance (on IV fluids, expect weight fluctuations) Weight Status Obese Subjective/Other Information Per discussion with RN: on high flow nasal canula, NG tube for TF. MD order for TF Percent of energy/protein needs met: TF goal rate to meet 80% or greater of estimated energy needs. Burn Absent Trauma Absent GI Symptoms None Food Allergy No Current % PO Other Minimum of two criteria No #1 Nutrition Diagnosis Other: (Specify in comment below) Comments: Comprimised PO intake, dependency for enteral feed to meet nutrition needs Etiology DM, collapse, As Evidenced by Signs and Symptoms not able to eat PO at this time, MD order for TF Is patient on ventilator? No Is Patient Ambulatory and/or Out of Bed No REE-([place]-confined to bed) 1945.728 Kcal/Kg value to use for calculation 15 Approximate Energy Requirements Using 1565 kcal/Kg Calculation Used for Recommendations Kcal/kg Additional Notes Protein: 0.7-1 g/kg @ 104k-104g Fluids: 1 ml/kcal or per MD Nutrition Intervention Change Diet Order: Continue with NPO. Advance when medically feasible or when okay'd by COPYIST. Nutrition Support: Glucerna 1.2 with goal of 55ml /hr Flush 125ml/4hr Kcal 1,584 Protein (gm) 79 Fat (gm) 59 Fluid (mL) 1,062 % RDI: 100% minimal EEN Goal #1 TF at goal and tolerated each nutrition assessment. Goal #2 weight to maintain within -3% current weight for LOS Follow-Up By: 02/20/21 Additional Comments check for TF tolerance and at goal.
[2021-02-20] MEDS: ASPIRIN 81 MG TAB CHEW PO SCH (11:38)
[2021-02-20] MEDS: CLOPIDOGREL 75 MG TAB PO SCH (11:39)
[2021-02-20] MEDS: dexAMETHasone 4 MG/ML VIAL IV SCH (11:39)
[2021-02-20] MEDS: METOPROLOL TARTRATE 50 MG TAB PO SCH ×2 (11:39→22:09)
[2021-02-20] MEDS: FAMOTIDINE 20 MG/2 ML INJ IV SCH ×2 (11:40→22:09)
[2021-02-20] MEDS: FERROUS SULFATE 308 MG (62mg Elemental Iron) / 7 ML ELIXIR FEEDTUBE SCH ×2 (11:41→22:09)
--- NOTE | 2021-02-20 12:07 | Progress Note ---
Assessment and Plan 55 y/o female with STEMI and acute respiratory failure 02/20/21: Wean for sats >88%. Steroids and Remdesivir. Will hold on lasix today although it did not make sodium worse so could consider repeat dosing. Guarded prognosis. 02/19/21: continue to wean for sats >88%. Steroids and remdesivir. Feel patient is stable enough to go to COVID floor or at least Step down. Needs more free water. Patient is taking po so can be given this way. Did give lasix x1 today to help with volume given I/O record. May make Na worse. 02/18/21: WEan FiO2 and flow for sats >88%. Continue therapy for COVID. Guideline therapy for CAD. Guarded prognosis. 02/17/21: Suspect family knew patient was COVID positive and did not tell us. 48 hours now behind on starting therapy, maybe longer. Agree with steroids. Will ask ID about Remdesivir and Actemra. Monitor fluids, BNP was still elevated despite normal EF. Wean FiO2 as tolerated and need to have patient manually prone. Follow up neurology recs as well as ID. Guarded prognosis. 02/16/21: Responded well to diuresis, will give more lasix today. Going for MRI today. Spoke with downstairs who is upset about lack of visitation. he also states that he has a neurologist who is willing to accept the patient to [facility] but he refused to give me the name of the physician. Will continue supportive measures. 1. Pulm- CXR appears to be more consistent with pulmonary edema and BNP is 4k. Stopped IVF's. Attempted to take of bipap but desats on cannula. Awake and tachypnic. Will give lasix 20mg IV x1 now to see if this helps with oxygen requirement. DO not feel this is infection. 2. Cards-STemi, goal directed therapy and follow up echo, done but not read yet. 3. Endo-elevated blood sugar likely related to acute mI, although patient could have underlying disease given age and weight, suggest checking A1C. 4. Guarded prognosis Subjective Date of service: 02/20/21 Principal diagnosis: CVA with left side weakness ,elevated inflammatory markers Interval history: successful transfer out of unit but no further weaning has been done since I dropped FiO2 and flow yesterday. Objective Vital Signs - 12hr 02/20/21 05:00 O2 Sat by Pulse 97 Oximetry Gastrointestinal: normoactive bowel sounds Integumentary: normal CBC and BMP: 02/20/21 06:39 02/20/21 08:45 ABG, PT/INR, D-dimer: PT/INR, D-dimer PT 15.8 Sec. (12.2-14.9) H 02/15/21 18:20 INR 1.20 (0.87-1.13) H 02/15/21 18:20 D-Dimer 4275.78 ng/mlDDU (0-234) H 02/20/21 06:39 Abnormal lab findings: Abnormal Labs 02/14/21 02/14/21 02/14/21 20:21 20:21 20:21 WBC 15.6 H RBC 5.55 H Hct 43.3 H MCV 78 L MCH 26 L MCHC RDW 16.3 H Lymph % (Auto) Lymph # (Auto) Seg Neutrophils % Seg Neuts % (Manual) 96.0 H Lymphocytes % (Manual) 3.0 L Seg Neutrophils # Seg Neutrophils # Man 15.0 H Lymphocytes # (Manual) 0.5 L PT 16.7 H INR 1.30 H D-Dimer Heparin Anti-Xa Level Sodium 131 L Potassium 5.1 H Chloride 88.4 L Carbon Dioxide 20 L BUN 34 H Creatinine 1.5 H Glucose 574 H* POC Glucose Magnesium Ferritin AST Lactate Dehydrogenase Troponin T 0.882 H* C-Reactive Protein NT-Pro-B Natriuret Pep Albumin Triglycerides 292 H HDL Cholesterol 23 L Coronavirus (PCR) 02/14/21 02/14/21 02/14/21 20:21 23:11 23:20 WBC RBC Hct MCV MCH MCHC RDW Lymph % (Auto) Lymph # (Auto) Seg Neutrophils % Seg Neuts % (Manual) Lymphocytes % (Manual) Seg Neutrophils # Seg Neutrophils # Man Lymphocytes # (Manual) PT INR D-Dimer Heparin Anti-Xa Level Sodium Potassium Chloride Carbon Dioxide BUN Creatinine Glucose POC Glucose 562 H 422 H Magnesium Ferritin AST Lactate Dehydrogenase Troponin T 0.892 H* C-Reactive Protein NT-Pro-B Natriuret Pep Albumin Triglycerides HDL Cholesterol Coronavirus (PCR) 02/15/21 02/15/21 02/15/21 03:55 03:55 05:29 WBC RBC 5.17 H Hct MCV 77 L MCH 26 L MCHC RDW 15.8 H Lymph % (Auto) 4.9 L Lymph # (Auto) 0.5 L Seg Neutrophils % 89.2 H Seg Neuts % (Manual) Lymphocytes % (Manual) Seg Neutrophils # 8.4 H Seg Neutrophils # Man Lymphocytes # (Manual) PT INR D-Dimer Heparin Anti-Xa Level Sodium 136 L Potassium Chloride 97.3 L Carbon Dioxide 18 L BUN 33 H Creatinine Glucose 402 H POC Glucose 345 H Magnesium Ferritin AST 46 H Lactate Dehydrogenase Troponin T 0.992 H* C-Reactive Protein NT-Pro-B Natriuret Pep Albumin 3.0 L Triglycerides HDL Cholesterol Coronavirus (PCR) 02/15/21 02/15/21 02/15/21 08:38 08:38 08:38 WBC RBC Hct MCV 75 L MCH 26 L MCHC 35 H RDW 16.2 H Lymph % (Auto) Lymph # (Auto) Seg Neutrophils % Seg Neuts % (Manual) Lymphocytes % (Manual) Seg Neutrophils # Seg Neutrophils # Man Lymphocytes # (Manual) PT INR D-Dimer Heparin Anti-Xa Level Sodium 135 L Potassium Chloride Carbon Dioxide 19 L BUN 31 H Creatinine Glucose 360 H POC Glucose Magnesium 2.50 H Ferritin AST Lactate Dehydrogenase Troponin T C-Reactive Protein NT-Pro-B Natriuret Pep 4086 H Albumin Triglycerides HDL Cholesterol Coronavirus (PCR) 02/15/21 02/15/21 02/15/21 11:15 17:28 18:20 WBC RBC Hct MCV MCH MCHC RDW Lymph % (Auto) Lymph # (Auto) Seg Neutrophils % Seg Neuts % (Manual) Lymphocytes % (Manual) Seg Neutrophils # Seg Neutrophils # Man Lymphocytes # (Manual) PT INR D-Dimer > 87451 H Heparin Anti-Xa Level Sodium Potassium Chloride Carbon Dioxide BUN Creatinine Glucose POC Glucose 317 H 311 H Magnesium Ferritin AST Lactate Dehydrogenase Troponin T C-Reactive Protein NT-Pro-B Natriuret Pep Albumin Triglycerides HDL Cholesterol Coronavirus (PCR) 02/15/21 02/15/21 02/15/21 18:20 18:20 18:20 WBC RBC Hct MCV MCH MCHC RDW Lymph % (Auto) Lymph # (Auto) Seg Neutrophils % Seg Neuts % (Manual) Lymphocytes % (Manual) Seg Neutrophils # Seg Neutrophils # Man Lymphocytes # (Manual) PT 15.8 H INR 1.20 H D-Dimer Heparin Anti-Xa Level Sodium Potassium Chloride Carbon Dioxide BUN Creatinine Glucose POC Glucose Magnesium Ferritin 837.7 H AST Lactate Dehydrogenase 766 H Troponin T C-Reactive Protein 21.50 H NT-Pro-B Natriuret Pep Albumin Triglycerides HDL Cholesterol Coronavirus (PCR) 02/15/21 02/16/21 02/16/21 23:45 02:44 02:44 WBC RBC Hct MCV 77 L MCH 26 L MCHC RDW 16.0 H Lymph % (Auto) Lymph # (Auto) Seg Neutrophils % Seg Neuts % (Manual) Lymphocytes % (Manual) Seg Neutrophils # Seg Neutrophils # Man Lymphocytes # (Manual) PT INR D-Dimer Heparin Anti-Xa Level Sodium Potassium Chloride Carbon Dioxide BUN 27 H Creatinine Glucose 269 H POC Glucose 203 H Magnesium Ferritin AST Lactate Dehydrogenase Troponin T C-Reactive Protein NT-Pro-B Natriuret Pep Albumin Triglycerides HDL Cholesterol Coronavirus (PCR) 02/16/21 02/16/21 02/16/21 05:47 11:50 15:00 WBC RBC Hct MCV MCH MCHC RDW Lymph % (Auto) Lymph # (Auto) Seg Neutrophils % Seg Neuts % (Manual) Lymphocytes % (Manual) Seg Neutrophils # Seg Neutrophils # Man Lymphocytes # (Manual) PT INR D-Dimer Heparin Anti-Xa Level < 0.10 L Sodium Potassium Chloride Carbon Dioxide BUN Creatinine Glucose POC Glucose 275 H 251 H Magnesium Ferritin AST Lactate Dehydrogenase Troponin T C-Reactive Protein NT-Pro-B Natriuret Pep Albumin Triglycerides HDL Cholesterol Coronavirus (PCR) 02/16/21 02/16/21 02/16/21 18:23 23:30 23:57 WBC RBC Hct MCV MCH MCHC RDW Lymph % (Auto) Lymph # (Auto) Seg Neutrophils % Seg Neuts % (Manual) Lymphocytes % (Manual) Seg Neutrophils # Seg Neutrophils # Man Lymphocytes # (Manual) PT INR D-Dimer Heparin Anti-Xa Level < 0.10 L Sodium Potassium Chloride Carbon Dioxide BUN Creatinine Glucose POC Glucose 237 H 249 H Magnesium Ferritin AST Lactate Dehydrogenase Troponin T C-Reactive Protein NT-Pro-B Natriuret Pep Albumin Triglycerides HDL Cholesterol Coronavirus (PCR) 02/16/21 02/17/21 02/17/21 Unknown 05:25 06:18 WBC RBC Hct MCV MCH MCHC RDW Lymph % (Auto) Lymph # (Auto) Seg Neutrophils % Seg Neuts % (Manual) Lymphocytes % (Manual) Seg Neutrophils # Seg Neutrophils # Man Lymphocytes # (Manual) PT INR D-Dimer Heparin Anti-Xa Level Sodium Potassium Chloride Carbon Dioxide BUN Creatinine Glucose POC Glucose 238 H 229 H Magnesium Ferritin AST Lactate Dehydrogenase Troponin T C-Reactive Protein NT-Pro-B Natriuret Pep Albumin Triglycerides HDL Cholesterol Coronavirus (PCR) Positive A 02/17/21 02/17/21 02/17/21 11:35 13:30 13:30 WBC RBC Hct MCV MCH MCHC RDW Lymph % (Auto) Lymph # (Auto) Seg Neutrophils % Seg Neuts % (Manual) Lymphocytes % (Manual) Seg Neutrophils # Seg Neutrophils # Man Lymphocytes # (Manual) PT INR D-Dimer Heparin Anti-Xa Level 0.29 L Sodium 146 H D Potassium Chloride 107.3 H Carbon Dioxide BUN 29 H Creatinine Glucose 334 H POC Glucose 279 H Magnesium Ferritin AST Lactate Dehydrogenase Troponin T C-Reactive Protein NT-Pro-B Natriuret Pep Albumin Triglycerides HDL Cholesterol Coronavirus (PCR) 02/17/21 02/17/21 02/17/21 13:30 13:30 16:42 WBC RBC Hct MCV 77 L MCH 25 L MCHC RDW 16.1 H Lymph % (Auto) Lymph # (Auto) Seg Neutrophils % Seg Neuts % (Manual) Lymphocytes % (Manual) Seg Neutrophils # Seg Neutrophils # Man Lymphocytes # (Manual) PT INR D-Dimer Heparin Anti-Xa Level Sodium 146 H Potassium Chloride Carbon Dioxide BUN 29 H Creatinine Glucose 340 H POC Glucose 291 H Magnesium Ferritin AST Lactate Dehydrogenase Troponin T C-Reactive Protein NT-Pro-B Natriuret Pep Albumin 2.7 L Triglycerides HDL Cholesterol Coronavirus (PCR) 02/17/21 02/18/21 02/18/21 21:43 04:40 04:40 WBC RBC Hct MCV 78 L MCH 26 L MCHC RDW 16.3 H Lymph % (Auto) Lymph # (Auto) Seg Neutrophils % Seg Neuts % (Manual) Lymphocytes % (Manual) Seg Neutrophils # Seg Neutrophils # Man Lymphocytes # (Manual) PT INR D-Dimer Heparin Anti-Xa Level Sodium 149 H Potassium Chloride 108.9 H Carbon Dioxide BUN 34 H Creatinine Glucose 318 H POC Glucose 288 H Magnesium Ferritin AST Lactate Dehydrogenase Troponin T C-Reactive Protein 14.50 H NT-Pro-B Natriuret Pep Albumin 3.0 L Triglycerides HDL Cholesterol Coronavirus (PCR) 02/18/21 02/18/21 02/18/21 04:40 08:02 11:30 WBC RBC Hct MCV MCH MCHC RDW Lymph % (Auto) Lymph # (Auto) Seg Neutrophils % Seg Neuts % (Manual) Lymphocytes % (Manual) Seg Neutrophils # Seg Neutrophils # Man Lymphocytes # (Manual) PT INR D-Dimer 3846.94 H Heparin Anti-Xa Level Sodium Potassium Chloride Carbon Dioxide BUN Creatinine Glucose POC Glucose 263 H 309 H Magnesium Ferritin AST Lactate Dehydrogenase Troponin T C-Reactive Protein NT-Pro-B Natriuret Pep Albumin Triglycerides HDL Cholesterol Coronavirus (PCR) 02/18/21 02/18/21 02/18/21 12:29 21:56 22:34 WBC RBC Hct MCV MCH MCHC RDW Lymph % (Auto) Lymph # (Auto) Seg Neutrophils % Seg Neuts % (Manual) Lymphocytes % (Manual) Seg Neutrophils # Seg Neutrophils # Man Lymphocytes # (Manual) PT INR D-Dimer Heparin Anti-Xa Level 0.29 L Sodium Potassium Chloride Carbon Dioxide BUN Creatinine Glucose POC Glucose 313 H 284 H Magnesium Ferritin AST Lactate Dehydrogenase Troponin T C-Reactive Protein NT-Pro-B Natriuret Pep Albumin Triglycerides HDL Cholesterol Coronavirus (PCR) 02/18/21 02/19/21 02/19/21 23:52 06:11 07:54 WBC RBC Hct MCV MCH MCHC RDW Lymph % (Auto) Lymph # (Auto) Seg Neutrophils % Seg Neuts % (Manual) Lymphocytes % (Manual) Seg Neutrophils # Seg Neutrophils # Man Lymphocytes # (Manual) PT INR D-Dimer Heparin Anti-Xa Level Sodium 151 H Potassium Chloride 110.6 H Carbon Dioxide BUN 28 H Creatinine Glucose 191 H POC Glucose 272 H 155 H Magnesium Ferritin AST Lactate Dehydrogenase Troponin T C-Reactive Protein NT-Pro-B Natriuret Pep Albumin 3.0 L Triglycerides HDL Cholesterol Coronavirus (PCR) 02/19/21 02/19/21 02/19/21 12:37 16:29 21:28 WBC RBC Hct MCV MCH MCHC RDW Lymph % (Auto) Lymph # (Auto) Seg Neutrophils % Seg Neuts % (Manual) Lymphocytes % (Manual) Seg Neutrophils # Seg Neutrophils # Man Lymphocytes # (Manual) PT INR D-Dimer Heparin Anti-Xa Level Sodium Potassium Chloride Carbon Dioxide BUN Creatinine Glucose POC Glucose 233 H 268 H 298 H Magnesium Ferritin AST Lactate Dehydrogenase Troponin T C-Reactive Protein NT-Pro-B Natriuret Pep Albumin Triglycerides HDL Cholesterol Coronavirus (PCR) 02/19/21 02/20/21 02/20/21 23:34 06:39 06:39 WBC RBC 5.08 H Hct MCV 77 L MCH 25 L MCHC RDW 16.0 H Lymph % (Auto) Lymph # (Auto) Seg Neutrophils % Seg Neuts % (Manual) Lymphocytes % (Manual) Seg Neutrophils # Seg Neutrophils # Man Lymphocytes # (Manual) PT INR D-Dimer 4275.78 H Heparin Anti-Xa Level 0.26 L Sodium Potassium Chloride Carbon Dioxide BUN Creatinine Glucose POC Glucose Magnesium Ferritin AST Lactate Dehydrogenase Troponin T C-Reactive Protein NT-Pro-B Natriuret Pep Albumin Triglycerides HDL Cholesterol Coronavirus (PCR) 02/20/21 02/20/21 02/20/21 06:39 06:39 08:45 WBC RBC Hct MCV MCH MCHC RDW Lymph % (Auto) Lymph # (Auto) Seg Neutrophils % Seg Neuts % (Manual) Lymphocytes % (Manual) Seg Neutrophils # Seg Neutrophils # Man Lymphocytes # (Manual) PT INR D-Dimer Heparin Anti-Xa Level Sodium 152 H 151 H Potassium Chloride 112.0 H 111.4 H Carbon Dioxide 31 H BUN 23 H 23 H Creatinine Glucose 119 H 140 H POC Glucose Magnesium Ferritin 915.5 H AST Lactate Dehydrogenase 645 H Troponin T C-Reactive Protein 3.60 H NT-Pro-B Natriuret Pep Albumin 3.1 L Triglycerides HDL Cholesterol Coronavirus (PCR) 02/20/21 11:57 WBC RBC Hct MCV MCH MCHC RDW Lymph % (Auto) Lymph # (Auto) Seg Neutrophils % Seg Neuts % (Manual) Lymphocytes % (Manual) Seg Neutrophils # Seg Neutrophils # Man Lymphocytes # (Manual) PT INR D-Dimer Heparin Anti-Xa Level Sodium Potassium Chloride Carbon Dioxide BUN Creatinine Glucose POC Glucose 217 H Magnesium Ferritin AST Lactate Dehydrogenase Troponin T C-Reactive Protein NT-Pro-B Natriuret Pep Albumin Triglycerides HDL Cholesterol Coronavirus (PCR)
--- NOTE | 2021-02-20 12:17 | Progress Note ---
Assessment and Plan - Patient Problems (1) STEMI (ST elevation myocardial infarction) Current Visit: Yes Status: Acute Plan to address problem: Patient admitted with symptoms of acute Covid pneumonia, and intercurrent acute inferolateral myocardial infarction. Angiography demonstrated the infarct to be due to right coronary artery thrombus, treated with a single drug-eluting stent. Patient is on aspirin and Plavix, and intravenous heparin. (2) Venous thromboembolism Current Visit: Yes Status: Acute Plan to address problem: Echocardiogram showed a mobile mass in the right ventricle, suggestive of venous thromboembolism in transition, continue intravenous heparin, ultimately will be transitioned to long-term warfarin therapy or a NOAC. Subjective Date of service: 02/20/21 Principal diagnosis: CVA with left side weakness ,elevated inflammatory markers Interval history: The patient is breathing comfortably on room air, no acute distress. No cardiac complaints. Objective Vital Signs Temp Pulse Pulse Resp Resp BP Pulse Ox 02/20/21 05:00 97 02/20/21 00:00 98.0 F 69 20 145/96 100 02/19/21 23:22 98.0 F 69 20 145/96 100 02/19/21 23:00 96 02/19/21 22:50 77 29 H 135/101 02/19/21 22:41 74 24 135/101 97 02/19/21 22:31 83 23 135/101 97 02/19/21 22:21 77 21 139/97 98 02/19/21 22:11 80 26 H 139/97 97 02/19/21 22:05 80 130/97 02/19/21 22:00 82 25 H 22 139/97 96 02/19/21 21:51 79 23 135/101 98 02/19/21 21:41 80 22 135/101 97 02/19/21 21:31 82 27 H 135/101 97 02/19/21 21:21 83 21 135/101 97 02/19/21 21:11 84 27 H 135/101 97 02/19/21 21:00 84 21 135/101 97 02/19/21 20:45 81 23 138/91 99 02/19/21 20:31 81 25 H 138/91 98 02/19/21 20:24 97 02/19/21 20:15 83 22 138/91 98 02/19/21 20:00 99.2 F 78 86 20 138/91 97 02/19/21 19:45 86 23 134/98 99 02/19/21 19:31 85 29 H 134/98 97 02/19/21 19:15 81 26 H 134/98 96 02/19/21 19:00 87 31 H 134/98 98 02/19/21 18:45 88 27 H 135/83 97 02/19/21 18:31 79 24 135/83 95 02/19/21 18:15 86 29 H 135/83 97 02/19/21 18:00 86 28 H 135/83 98 02/19/21 17:45 91 H 15 154/92 97 02/19/21 17:31 90 23 154/92 97 02/19/21 17:15 84 12 154/102 97 02/19/21 17:00 84 22 154/102 99 02/19/21 16:45 82 20 145/90 96 02/19/21 16:31 81 20 145/90 97 02/19/21 16:15 79 14 154/92 96 02/19/21 16:00 77 80 19 154/92 96 02/19/21 15:45 76 26 H 145/90 97 02/19/21 15:31 80 19 145/90 99 02/19/21 15:15 78 13 145/90 98 02/19/21 15:00 79 21 145/90 96 02/19/21 14:45 78 27 H 151/94 98 02/19/21 14:31 78 21 151/94 98 02/19/21 14:15 79 16 151/94 94 02/19/21 14:00 72 24 151/94 94 02/19/21 13:45 84 23 162/102 95 02/19/21 13:31 88 21 162/102 93 02/19/21 13:23 95 02/19/21 13:21 88 155/94 02/19/21 13:15 87 15 162/102 95 02/19/21 13:01 89 24 162/102 95 02/19/21 12:45 96 H 24 162/102 96 02/19/21 12:31 88 26 H 162/102 97 02/19/21 12:15 80 23 162/102 96 - Physical Examination Narrative exam: Full physical exam is deferred due to acute Covid pneumonia. General: Other (on bipap) HEENT: Positive: PERRL Neck: Positive: trachea midline Neuro: Positive: Grossly Intact Abdomen: Positive: Unremarkable Extremities: Absent: edema - Labs and Meds Cardiac Enzymes 02/20/21 Range/Units 06:39 AST 36 (5-40) units/L Lactate Dehydrogenase 645 H (91-180) units/L CBC 02/20/21 Range/Units 06:39 WBC 6.2 (4.5-11.0) K/mm3 RBC 5.08 H (3.65-5.03) M/mm3 Hgb 12.7 (10.1-14.3) gm/dl Hct 39.0 (30.3-42.9) % Plt Count 244 (140-440) K/mm3 Comprehensive Metabolic Panel 02/20/21 02/20/21 Range/Units 06:39 08:45 Sodium 152 H 151 H (137-145) mmol/L Potassium 3.7 3.6 (3.6-5.0) mmol/L Chloride 112.0 H 111.4 H (98-107) mmol/L Carbon Dioxide 31 H 29 (22-30) mmol/L BUN 23 H 23 H (7-17) mg/dL Creatinine 0.9 0.9 (0.6-1.2) mg/dL Glucose 119 H 140 H (65-100) mg/dL Calcium 9.2 8.9 (8.4-10.2) mg/dL AST 36 (5-40) units/L ALT 27 (7-56) units/L Alkaline Phosphatase 74 (35-129) units/L Total Protein 7.0 (6.3-8.2) g/dL Albumin 3.1 L (3.9-5) g/dL - Imaging and Cardiology Echo: other (02/14/2021 Echo - Normal LV and RV systolic function, thrombus in RV)
--- NOTE | 2021-02-20 12:29 | Progress Note ---
Assessment and Plan Cultures: 02/16/2021 blood culture: no growth SARS CoV2 PCR positive Assessment: 55-year-old female with history of diabetes mellitus, admitted on 02/14/2021 secondary to left-sided weakness, left facial droop and dysarthria for unknown amount of time likely 12-24h with a previous 2-week history of flulike symptoms: #Acute sepsis: likely secondary to bilateral pneumonia +/- STEMI +/- CVA. #Bilateral pneumonia: secondary to COVID. CXR with bilateral pneumonia. Initial labs: CRP 21.5, ferritin 837, LDH 766, D-dimer > 10K. Received Actemra on 02/17/2021. #Acute hypoxemic respiratory failure: requiring BiPAP/HFNC #Elevated LFTs: from sepsis/COVID #ADAM: resolved. #STEMI: s/p heart cath with stent placement in the RCA. #Possible CVA: Patient was out of window of TPA per neuro. Recommendations: -Received Actemra on 02/17/2021 -continue remdesivir x 5 days -continue dexamethasone IV/PO daily for 10 days -procal moderately elevated, completed ceftriaxone and azithromycin course -monitor CRP, d-dimer, anticoagulation per protocol -guarded prognosis Simin Engel MD, FACP [facility] ([facility] O: [phone] F: [phone] Subjective Date of service: 02/20/21 Principal diagnosis: CVA with left side weakness ,elevated inflammatory markers Interval history: Afebrile. Remains on high flow nasal cannula. Objective - Exam Narrative Exam: Physical Exam (reviewed in chart to minimize risk of transmission) Constitutional: deferred Head, Ears, Nose: deferred Eyes: deferred Neck: deferred Oral: deferred Cardiovascular: deferred Respiratory: deferred GI: deferred Musculoskeletal: deferred Skin: deferred Hem/Lymphatic: deferred Psych: deferred Neurological: deferred - Constitutional Vitals: Vital Signs Temp Pulse Resp BP Pulse Ox 98.0 F 69 20 145/96 97 02/20/21 00:00 02/20/21 00:00 02/20/21 00:00 02/20/21 00:00 02/20/21 05:00 Temperature -Last 24 Hours Temperature 98.0 F Temperature 98.0 F Temperature 99.2 F - Labs CBC & Chem 7: 09/27/21 06:39 02/20/21 08:45 Labs: Abnormal lab results 02/19/21 02/19/21 02/19/21 Range/Units 12:37 16:29 21:28 RBC (3.65-5.03) M/mm3 MCV (79-97) fl MCH (28-32) pg RDW (13.2-15.2) % D-Dimer (0-234) ng/mlDDU Heparin Anti-Xa Level (0.3-0.7) U.I./ml Sodium (137-145) mmol/L Chloride (98-107) mmol/L Carbon Dioxide (22-30) mmol/L BUN (7-17) mg/dL Glucose (65-100) mg/dL POC Glucose 233 H 268 H 298 H (70-105) mg/dL Ferritin (10.0-200.0) ng/mL Lactate Dehydrogenase (91-180) units/L C-Reactive Protein (0.00-1.30) mg/dL Albumin (3.9-5) g/dL 02/19/21 02/20/21 02/20/21 Range/Units 23:34 06:39 06:39 RBC 5.08 H (3.65-5.03) M/mm3 MCV 77 L (79-97) fl MCH 25 L (28-32) pg RDW 16.0 H (13.2-15.2) % D-Dimer 4275.78 H (0-234) ng/mlDDU Heparin Anti-Xa Level 0.26 L (0.3-0.7) U.I./ml Sodium (137-145) mmol/L Chloride (98-107) mmol/L Carbon Dioxide (22-30) mmol/L BUN (7-17) mg/dL Glucose (65-100) mg/dL POC Glucose (70-105) mg/dL Ferritin (10.0-200.0) ng/mL Lactate Dehydrogenase (91-180) units/L C-Reactive Protein (0.00-1.30) mg/dL Albumin (3.9-5) g/dL 02/20/21 02/20/21 02/20/21 Range/Units 06:39 06:39 08:45 RBC (3.65-5.03) M/mm3 MCV (79-97) fl MCH (28-32) pg RDW (13.2-15.2) % D-Dimer (0-234) ng/mlDDU Heparin Anti-Xa Level (0.3-0.7) U.I./ml Sodium 152 H 151 H (137-145) mmol/L Chloride 112.0 H 111.4 H (98-107) mmol/L Carbon Dioxide 31 H (22-30) mmol/L BUN 23 H 23 H (7-17) mg/dL Glucose 119 H 140 H (65-100) mg/dL POC Glucose (70-105) mg/dL Ferritin 915.5 H (10.0-200.0) ng/mL Lactate Dehydrogenase 645 H (91-180) units/L C-Reactive Protein 3.60 H (0.00-1.30) mg/dL Albumin 3.1 L (3.9-5) g/dL 02/20/21 Range/Units 11:57 RBC (3.65-5.03) M/mm3 MCV (79-97) fl MCH (28-32) pg RDW (13.2-15.2) % D-Dimer (0-234) ng/mlDDU Heparin Anti-Xa Level (0.3-0.7) U.I./ml Sodium (137-145) mmol/L Chloride (98-107) mmol/L Carbon Dioxide (22-30) mmol/L BUN (7-17) mg/dL Glucose (65-100) mg/dL POC Glucose 217 H (70-105) mg/dL Ferritin (10.0-200.0) ng/mL Lactate Dehydrogenase (91-180) units/L C-Reactive Protein (0.00-1.30) mg/dL Albumin (3.9-5) g/dL
[2021-02-20 16:14] LABS: Myelocytes # (Manual) 0.1 K/mm3; Platelet Estimate Consistent w Auto; RBC Morphology Normal; Total Cells Counted 100
--- NOTE | 2021-02-20 16:59 | Cardiac Catherization Report ---
DATE OF PROCEDURE: 02/14/2021 CORONARY ANGIOGRAM AND PERCUTANEOUS INTERVENTION REPORT DATE OF SERVICE: 02/14/2021 PROCEDURES PERFORMED: 1. Selective left and right coronary angiogram. 2. Left ventriculogram. 3. Percutaneous intervention of the right coronary artery. INDICATIONS: Acute inferior ST elevation myocardial infarction. 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 PROCEDURE IN DETAIL: 1. The patient was prepped and draped in a sterile fashion after informed consent. 2. The right groin was anesthetized using local Lidocaine infiltration. 3. The right radial artery was entered using the Seldinger technique, followed by the placement of a 6-Monegasque sheath. 4. Selective left and right coronary angiography was performed using 6-Monegasque Louise catheters. Angiograms were done in multiple projections. 5. Selective left ventricular angiography was done using a 6-Monegasque pigtail catheter. Left ventricular angiography was performed in the right anterior oblique projection. 6. The catheters were withdrawn, the sheath removed, and hemostasis was achieved. 7. The patient was transferred to the post cardiac catheterization unit in stable condition. There were no complications, equipment malfunction, or technical difficulties. FINDINGS: HEMODYNAMICS: 1. AO 113/65, LV 113/12, LVEDP is 15. 2. Left ventriculogram done in 30-degree HERNÁNDEZ projection. There is normal LV systolic function, EF greater than 55%. ANGIOGRAPHIC DETAILS. 1. Left main is angiographically normal. 2. LAD is angiographically normal. 3. Circumflex angiographically normal. 4. Right coronary artery is a large caliber dominant vessel. A thrombotic 70% distal right coronary artery occlusion is noted. PLAN: 1. Proceed with PCI of the right coronary artery. 2. Percutaneous intervention details. Intravenous heparin was used to maintain therapeutic ACT. In view of the patient's presentation of stroke, Aggrastat was deferred. A JR4 guide catheter was used to engage the right coronary artery. A BMW wire was used to cross the lesion in the right coronary artery. We tried to advance an export mechanical thrombectomy catheter, but we were unable to advance it distally. After initial predilatation, a 3.5 x 18 drug-eluting stent was deployed with excellent results. Angiogram revealed no further thrombus or dissection. Wire was removed. Angiogram repeated. Excellent results were noted. The patient tolerated the procedure well. She was given 600 mg of Plavix. Sheath was removed and TR band applied. IMPRESSION: 1. Status post successful percutaneous intervention of thrombotic occlusion of the right coronary artery with the deployment of drug-eluting stent. 2. Preserved left ventricular systolic function. PLAN: 1. Aspirin for life. 2. Plavix for 1 year, preferably more. 3. Routine pharmacotherapy post-PCI. 4. Note, we had significant difficulty in advancing the wire across the aortic arch due to significant tortuosity. We had to exchange for a JR4 catheter and a Glidewire to successfully be able to advance it into the aortic arch. 5. The patient tolerated the procedure well. TID: [id number] RECEIPT: [id number] NUSRAT/SHRADDHA NEWMAN
[2021-02-20] MEDS: HYDROcodone/ACETAMINOPHEN 5-325 MG TAB PO PRN (18:16)
[2021-02-20] MEDS: REMDESIVIR 100 MG in SODIUM CHLORIDE 0.9% 250ML 250 ML IV SCH (22:08)
[2021-02-20] MEDS: INSULIN GLARGINE 100 UNITS/ML SUB-Q SCH (23:09)
[2021-02-20] MEDS: SODIUM CHLORIDE 0.9% 50 ML IVPB IV SCH (23:10)
[2021-02-21 05:22] LABS: Hematocrit 38.9 % (30.3-42.9); Hemoglobin 12.4 gm/dl (10.1-14.3)
[2021-02-21] MEDS: INSULIN LISPRO 100 UNIT/ML SUB-Q SCH ×4 (07:30→23:33)
[2021-02-21] MEDS: INSULIN REGULAR, HUMAN 100 UNITS/1 ML SUB-Q SCH ×4 (07:30→23:32)
--- NOTE | 2021-02-21 09:03 | Progress Note ---
Assessment and Plan Acute inferior OH secondary to RCA thrombus s/p PCI of the RCA RV thrombus Echocardiogram showed a mobile mass in the right ventricle, suggestive of venous thromboembolism in transition Acute CVA COVID-19 pneumonia Respiratory failure requiring HFNC Hypernatremia Diabetes Hypertension Continue statin therapy, beta blockers, and DAPT with plavix and aspirin. Continue intravenous heparin, ultimately will be transitioned to long-term warfarin therapy or a NOAC. Subjective Date of service: 02/21/21 Principal diagnosis: CVA with left side weakness ,elevated inflammatory markers Interval history: On high flow oxygen. No distress noted. Objective Vital Signs Temp Pulse Resp BP Pulse Ox 02/21/21 05:08 79 18 95 02/21/21 05:07 18 150/89 02/21/21 04:27 97.1 F L 81 20 159/101 89 02/21/21 01:29 96 02/20/21 22:20 98 02/20/21 22:02 97.8 F 74 20 150/98 98 02/20/21 21:30 97 02/20/21 11:00 100 02/20/21 10:39 98.1 F 96 H 18 149/99 94 - Physical Examination Narrative exam: Deferred due to isolation protocol. General: No Apparent Distress Cardiac: Positive: Reg Rate and Rhythm - Labs and Meds CBC 02/21/21 Range/Units 04:45 Hgb 12.4 (10.1-14.3) gm/dl Hct 38.9 (30.3-42.9) % Plt Count 242 (140-440) K/mm3 Comprehensive Metabolic Panel 02/20/21 Range/Units 08:45 Sodium 151 H (137-145) mmol/L Potassium 3.6 (3.6-5.0) mmol/L Chloride 111.4 H (98-107) mmol/L Carbon Dioxide 29 (22-30) mmol/L BUN 23 H (7-17) mg/dL Creatinine 0.9 (0.6-1.2) mg/dL Glucose 140 H (65-100) mg/dL Calcium 8.9 (8.4-10.2) mg/dL
--- NOTE | 2021-02-21 09:19 | Progress Note ---
Assessment and Plan 55 y/o female with STEMI and acute respiratory failure 02/21/21: Will order CXR for today for review. Follow up echo results. hold on lasix until those results are back. Wean FiO2 for sats >88%. Will speak with RT about more detailed documentation to explain significant increases in oxygen requirement. 02/20/21: Wean for sats >88%. Steroids and Remdesivir. Will hold on lasix today although it did not make sodium worse so could consider repeat dosing. Guarded prognosis. 02/19/21: continue to wean for sats >88%. Steroids and remdesivir. Feel patient is stable enough to go to COVID floor or at least Step down. Needs more free water. Patient is taking po so can be given this way. Did give lasix x1 today to help with volume given I/O record. May make Na worse. 02/18/21: WEan FiO2 and flow for sats >88%. Continue therapy for COVID. Guideline therapy for CAD. Guarded prognosis. 02/17/21: Suspect family knew patient was COVID positive and did not tell us. 48 hours now behind on starting therapy, maybe longer. Agree with steroids. Will ask ID about Remdesivir and Actemra. Monitor fluids, BNP was still elev ated despite normal EF. Wean FiO2 as tolerated and need to have patient manually prone. Follow up neurology recs as well as ID. Guarded prognosis. 02/16/21: Responded well to diuresis, will give more lasix today. Going for MRI today. Spoke with downstairs who is upset about lack of visitation. he also states that he has a neurologist who is willing to accept the patient to [facility] but he refused to give me the name of the physician. Will continue supportive measures. 1. Pulm- CXR appears to be more consistent with pulmonary edema and BNP is 4k. Stopped IVF's. Attempted to take of bipap but desats on cannula. Awake and tachypnic. Will give lasix 20mg IV x1 now to see if this helps with oxygen requirement. DO not feel this is infection. 2. Cards-STemi, goal directed therapy and follow up echo, done but not read yet. 3. Endo-elevated blood sugar likely related to acute mI, although patient could have underlying disease given age and weight, suggest checking A1C. 4. Guarded prognosis Subjective Date of service: 02/21/21 Principal diagnosis: CVA with left side weakness ,elevated inflammatory markers Interval history: Oxygen requirement increased dramatically in the last 24 hours but no real documentation of desaturation. Per RT notes weaning back down now. Per I/O has been negative the last two days but BP has been elevated and no repeat imaging. Objective Vital Signs - 12hr 02/20/21 02/20/21 02/20/21 21:30 22:02 22:20 Temperature 97.8 F Pulse Rate 74 Respiratory 20 Rate Blood Pressure 150/98 O2 Sat by Pulse 97 98 98 Oximetry 02/21/21 02/21/21 02/21/21 01:29 04:27 05:07 Temperature 97.1 F L Pulse Rate 81 Respiratory 20 18 Rate Blood Pressure 159/101 150/89 O2 Sat by Pulse 96 89 Oximetry 02/21/21 05:08 Temperature Pulse Rate 79 Respiratory 18 Rate Blood Pressure O2 Sat by Pulse 95 Oximetry Gastrointestinal: normoactive bowel sounds Integumentary: normal CBC and BMP: 02/21/21 04:45 02/20/21 08:45 ABG, PT/INR, D-dimer: PT/INR, D-dimer PT 15.8 Sec. (12.2-14.9) H 02/15/21 18:20 INR 1.20 (0.87-1.13) H 02/15/21 18:20 D-Dimer 4275.78 ng/mlDDU (0-234) H 02/20/21 06:39 Abnormal lab findings: Abnormal Labs 02/14/21 02/14/21 02/14/21 20:21 20:21 20:21 WBC 15.6 H RBC 5.55 H Hct 43.3 H MCV 78 L MCH 26 L MCHC RDW 16.3 H Lymph % (Auto) Lymph # (Auto) Seg Neutrophils % Seg Neuts % (Manual) 96.0 H Lymphocytes % (Manual) 3.0 L Seg Neutrophils # Seg Neutrophils # Man 15.0 H Lymphocytes # (Manual) 0.5 L PT 16.7 H INR 1.30 H D-Dimer Heparin Anti-Xa Level Sodium 131 L Potassium 5.1 H Chloride 88.4 L Carbon Dioxide 20 L BUN 34 H Creatinine 1.5 H Glucose 574 H* POC Glucose Magnesium Ferritin AST Lactate Dehydrogenase Troponin T 0.882 H* C-Reactive Protein NT-Pro-B Natriuret Pep Albumin Triglycerides 292 H HDL Cholesterol 23 L Coronavirus (PCR) 02/14/21 02/14/21 02/14/21 20:21 23:11 23:20 WBC RBC Hct MCV MCH MCHC RDW Lymph % (Auto) Lymph # (Auto) Seg Neutrophils % Seg Neuts % (Manual) Lymphocytes % (Manual) Seg Neutrophils # Seg Neutrophils # Man Lymphocytes # (Manual) PT INR D-Dimer Heparin Anti-Xa Level Sodium Potassium Chloride Carbon Dioxide BUN Creatinine Glucose POC Glucose 562 H 422 H Magnesium Ferritin AST Lactate Dehydrogenase Troponin T 0.892 H* C-Reactive Protein NT-Pro-B Natriuret Pep Albumin Triglycerides HDL Cholesterol Coronavirus (PCR) 02/15/21 02/15/21 02/15/21 03:55 03:55 05:29 WBC RBC 5.17 H Hct MCV 77 L MCH 26 L MCHC RDW 15.8 H Lymph % (Auto) 4.9 L Lymph # (Auto) 0.5 L Seg Neutrophils % 89.2 H Seg Neuts % (Manual) Lymphocytes % (Manual) Seg Neutrophils # 8.4 H Seg Neutrophils # Man Lymphocytes # (Manual) PT INR D-Dimer Heparin Anti-Xa Level Sodium 136 L Potassium Chloride 97.3 L Carbon Dioxide 18 L BUN 33 H Creatinine Glucose 402 H POC Glucose 345 H Magnesium Ferritin AST 46 H Lactate Dehydrogenase Troponin T 0.992 H* C-Reactive Protein NT-Pro-B Natriuret Pep Albumin 3.0 L Triglycerides HDL Cholesterol Coronavirus (PCR) 02/15/21 02/15/21 02/15/21 08:38 08:38 08:38 WBC RBC Hct MCV 75 L MCH 26 L MCHC 35 H RDW 16.2 H Lymph % (Auto) Lymph # (Auto) Seg Neutrophils % Seg Neuts % (Manual) Lymphocytes % (Manual) Seg Neutrophils # Seg Neutrophils # Man Lymphocytes # (Manual) PT INR D-Dimer Heparin Anti-Xa Level Sodium 135 L Potassium Chloride Carbon Dioxide 19 L BUN 31 H Creatinine Glucose 360 H POC Glucose Magnesium 2.50 H Ferritin AST Lactate Dehydrogenase Troponin T C-Reactive Protein NT-Pro-B Natriuret Pep 4086 H Albumin Triglycerides HDL Cholesterol Coronavirus (PCR) 02/15/21 02/15/21 02/15/21 11:15 17:28 18:20 WBC RBC Hct MCV MCH MCHC RDW Lymph % (Auto) Lymph # (Auto) Seg Neutrophils % Seg Neuts % (Manual) Lymphocytes % (Manual) Seg Neutrophils # Seg Neutrophils # Man Lymphocytes # (Manual) PT INR D-Dimer > 69891 H Heparin Anti-Xa Level Sodium Potassium Chloride Carbon Dioxide BUN Creatinine Glucose POC Glucose 317 H 311 H Magnesium Ferritin AST Lactate Dehydrogenase Troponin T C-Reactive Protein NT-Pro-B Natriuret Pep Albumin Triglycerides HDL Cholesterol Coronavirus (PCR) 02/15/21 02/15/21 02/15/21 18:20 18:20 18:20 WBC RBC Hct MCV MCH MCHC RDW Lymph % (Auto) Lymph # (Auto) Seg Neutrophils % Seg Neuts % (Manual) Lymphocytes % (Manual) Seg Neutrophils # Seg Neutrophils # Man Lymphocytes # (Manual) PT 15.8 H INR 1.20 H D-Dimer Heparin Anti-Xa Level Sodium Potassium Chloride Carbon Dioxide BUN Creatinine Glucose POC Glucose Magnesium Ferritin 837.7 H AST Lactate Dehydrogenase 766 H Troponin T C-Reactive Protein 21.50 H NT-Pro-B Natriuret Pep Albumin Triglycerides HDL Cholesterol Coronavirus (PCR) 02/15/21 02/16/21 02/16/21 23:45 02:44 02:44 WBC RBC Hct MCV 77 L MCH 26 L MCHC RDW 16.0 H Lymph % (Auto) Lymph # (Auto) Seg Neutrophils % Seg Neuts % (Manual) Lymphocytes % (Manual) Seg Neutrophils # Seg Neutrophils # Man Lymphocytes # (Manual) PT INR D-Dimer Heparin Anti-Xa Level Sodium Potassium Chloride Carbon Dioxide BUN 27 H Creatinine Glucose 269 H POC Glucose 203 H Magnesium Ferritin AST Lactate Dehydrogenase Troponin T C-Reactive Protein NT-Pro-B Natriuret Pep Albumin Triglycerides HDL Cholesterol Coronavirus (PCR) 02/16/21 02/16/21 02/16/21 05:47 11:50 15:00 WBC RBC Hct MCV MCH MCHC RDW Lymph % (Auto) Lymph # (Auto) Seg Neutrophils % Seg Neuts % (Manual) Lymphocytes % (Manual) Seg Neutrophils # Seg Neutrophils # Man Lymphocytes # (Manual) PT INR D-Dimer Heparin Anti-Xa Level < 0.10 L Sodium Potassium Chloride Carbon Dioxide BUN Creatinine Glucose POC Glucose 275 H 251 H Magnesium Ferritin AST Lactate Dehydrogenase Troponin T C-Reactive Protein NT-Pro-B Natriuret Pep Albumin Triglycerides HDL Cholesterol Coronavirus (PCR) 02/16/21 02/16/21 02/16/21 18:23 23:30 23:57 WBC RBC Hct MCV MCH MCHC RDW Lymph % (Auto) Lymph # (Auto) Seg Neutrophils % Seg Neuts % (Manual) Lymphocytes % (Manual) Seg Neutrophils # Seg Neutrophils # Man Lymphocytes # (Manual) PT INR D-Dimer Heparin Anti-Xa Level < 0.10 L Sodium Potassium Chloride Carbon Dioxide BUN Creatinine Glucose POC Glucose 237 H 249 H Magnesium Ferritin AST Lactate Dehydrogenase Troponin T C-Reactive Protein NT-Pro-B Natriuret Pep Albumin Triglycerides HDL Cholesterol Coronavirus (PCR) 02/16/21 02/17/21 02/17/21 Unknown 05:25 06:18 WBC RBC Hct MCV MCH MCHC RDW Lymph % (Auto) Lymph # (Auto) Seg Neutrophils % Seg Neuts % (Manual) Lymphocytes % (Manual) Seg Neutrophils # Seg Neutrophils # Man Lymphocytes # (Manual) PT INR D-Dimer Heparin Anti-Xa Level Sodium Potassium Chloride Carbon Dioxide BUN Creatinine Glucose POC Glucose 238 H 229 H Magnesium Ferritin AST Lactate Dehydrogenase Troponin T C-Reactive Protein NT-Pro-B Natriuret Pep Albumin Triglycerides HDL Cholesterol Coronavirus (PCR) Positive A 02/17/21 02/17/21 02/17/21 11:35 13:30 13:30 WBC RBC Hct MCV MCH MCHC RDW Lymph % (Auto) Lymph # (Auto) Seg Neutrophils % Seg Neuts % (Manual) Lymphocytes % (Manual) Seg Neutrophils # Seg Neutrophils # Man Lymphocytes # (Manual) PT INR D-Dimer Heparin Anti-Xa Level 0.29 L Sodium 146 H D Potassium Chloride 107.3 H Carbon Dioxide BUN 29 H Creatinine Glucose 334 H POC Glucose 279 H Magnesium Ferritin AST Lactate Dehydrogenase Troponin T C-Reactive Protein NT-Pro-B Natriuret Pep Albumin Triglycerides HDL Cholesterol Coronavirus (PCR) 02/17/21 02/17/21 02/17/21 13:30 13:30 16:42 WBC RBC Hct MCV 77 L MCH 25 L MCHC RDW 16.1 H Lymph % (Auto) Lymph # (Auto) Seg Neutrophils % Seg Neuts % (Manual) Lymphocytes % (Manual) Seg Neutrophils # Seg Neutrophils # Man Lymphocytes # (Manual) PT INR D-Dimer Heparin Anti-Xa Level Sodium 146 H Potassium Chloride Carbon Dioxide BUN 29 H Creatinine Glucose 340 H POC Glucose 291 H Magnesium Ferritin AST Lactate Dehydrogenase Troponin T C-Reactive Protein NT-Pro-B Natriuret Pep Albumin 2.7 L Triglycerides HDL Cholesterol Coronavirus (PCR) 02/17/21 02/18/21 02/18/21 21:43 04:40 04:40 WBC RBC Hct MCV 78 L MCH 26 L MCHC RDW 16.3 H Lymph % (Auto) Lymph # (Auto) Seg Neutrophils % Seg Neuts % (Manual) Lymphocytes % (Manual) Seg Neutrophils # Seg Neutrophils # Man Lymphocytes # (Manual) PT INR D-Dimer Heparin Anti-Xa Level Sodium 149 H Potassium Chloride 108.9 H Carbon Dioxide BUN 34 H Creatinine Glucose 318 H POC Glucose 288 H Magnesium Ferritin AST Lactate Dehydrogenase Troponin T C-Reactive Protein 14.50 H NT-Pro-B Natriuret Pep Albumin 3.0 L Triglycerides HDL Cholesterol Coronavirus (PCR) 02/18/21 02/18/21 02/18/21 04:40 08:02 11:30 WBC RBC Hct MCV MCH MCHC RDW Lymph % (Auto) Lymph # (Auto) Seg Neutrophils % Seg Neuts % (Manual) Lymphocytes % (Manual) Seg Neutrophils # Seg Neutrophils # Man Lymphocytes # (Manual) PT INR D-Dimer 3846.94 H Heparin Anti-Xa Level Sodium Potassium Chloride Carbon Dioxide BUN Creatinine Glucose POC Glucose 263 H 309 H Magnesium Ferritin AST Lactate Dehydrogenase Troponin T C-Reactive Protein NT-Pro-B Natriuret Pep Albumin Triglycerides HDL Cholesterol Coronavirus (PCR) 02/18/21 02/18/21 02/18/21 12:29 21:56 22:34 WBC RBC Hct MCV MCH MCHC RDW Lymph % (Auto) Lymph # (Auto) Seg Neutrophils % Seg Neuts % (Manual) Lymphocytes % (Manual) Seg Neutrophils # Seg Neutrophils # Man Lymphocytes # (Manual) PT INR D-Dimer Heparin Anti-Xa Level 0.29 L Sodium Potassium Chloride Carbon Dioxide BUN Creatinine Glucose POC Glucose 313 H 284 H Magnesium Ferritin AST Lactate Dehydrogenase Troponin T C-Reactive Protein NT-Pro-B Natriuret Pep Albumin Triglycerides HDL Cholesterol Coronavirus (PCR) 02/18/21 02/19/21 02/19/21 23:52 06:11 07:54 WBC RBC Hct MCV MCH MCHC RDW Lymph % (Auto) Lymph # (Auto) Seg Neutrophils % Seg Neuts % (Manual) Lymphocytes % (Manual) Seg Neutrophils # Seg Neutrophils # Man Lymphocytes # (Manual) PT INR D-Dimer Heparin Anti-Xa Level Sodium 151 H Potassium Chloride 110.6 H Carbon Dioxide BUN 28 H Creatinine Glucose 191 H POC Glucose 272 H 155 H Magnesium Ferritin AST Lactate Dehydrogenase Troponin T C-Reactive Protein NT-Pro-B Natriuret Pep Albumin 3.0 L Triglycerides HDL Cholesterol Coronavirus (PCR) 02/19/21 02/19/21 02/19/21 12:37 16:29 21:28 WBC RBC Hct MCV MCH MCHC RDW Lymph % (Auto) Lymph # (Auto) Seg Neutrophils % Seg Neuts % (Manual) Lymphocytes % (Manual) Seg Neutrophils # Seg Neutrophils # Man Lymphocytes # (Manual) PT INR D-Dimer Heparin Anti-Xa Level Sodium Potassium Chloride Carbon Dioxide BUN Creatinine Glucose POC Glucose 233 H 268 H 298 H Magnesium Ferritin AST Lactate Dehydrogenase Troponin T C-Reactive Protein NT-Pro-B Natriuret Pep Albumin Triglycerides HDL Cholesterol Coronavirus (PCR) 02/19/21 02/20/21 02/20/21 23:34 06:39 06:39 WBC RBC 5.08 H Hct MCV 77 L MCH 25 L MCHC RDW 16.0 H Lymph % (Auto) Lymph # (Auto) Seg Neutrophils % Seg Neuts % (Manual) 88.0 H Lymphocytes % (Manual) 4.0 L Seg Neutrophils # Seg Neutrophils # Man Lymphocytes # (Manual) 0.2 L PT INR D-Dimer 4275.78 H Heparin Anti-Xa Level 0.26 L Sodium Potassium Chloride Carbon Dioxide BUN Creatinine Glucose POC Glucose Magnesium Ferritin AST Lactate Dehydrogenase Troponin T C-Reactive Protein NT-Pro-B Natriuret Pep Albumin Triglycerides HDL Cholesterol Coronavirus (PCR) 02/20/21 02/20/21 02/20/21 06:39 06:39 08:45 WBC RBC Hct MCV MCH MCHC RDW Lymph % (Auto) Lymph # (Auto) Seg Neutrophils % Seg Neuts % (Manual) Lymphocytes % (Manual) Seg Neutrophils # Seg Neutrophils # Man Lymphocytes # (Manual) PT INR D-Dimer Heparin Anti-Xa Level Sodium 152 H 151 H Potassium Chloride 112.0 H 111.4 H Carbon Dioxide 31 H BUN 23 H 23 H Creatinine Glucose 119 H 140 H POC Glucose Magnesium Ferritin 915.5 H AST Lactate Dehydrogenase 645 H Troponin T C-Reactive Protein 3.60 H NT-Pro-B Natriuret Pep Albumin 3.1 L Triglycerides HDL Cholesterol Coronavirus (PCR) 02/20/21 02/20/21 02/20/21 11:57 18:01 22:20 WBC RBC Hct MCV MCH MCHC RDW Lymph % (Auto) Lymph # (Auto) Seg Neutrophils % Seg Neuts % (Manual) Lymphocytes % (Manual) Seg Neutrophils # Seg Neutrophils # Man Lymphocytes # (Manual) PT INR D-Dimer Heparin Anti-Xa Level Sodium Potassium Chloride Carbon Dioxide BUN Creatinine Glucose POC Glucose 217 H 337 H 379 H Magnesium Ferritin AST Lactate Dehydrogenase Troponin T C-Reactive Protein NT-Pro-B Natriuret Pep Albumin Triglycerides HDL Cholesterol Coronavirus (PCR) 02/21/21 07:43 WBC RBC Hct MCV MCH MCHC RDW Lymph % (Auto) Lymph # (Auto) Seg Neutrophils % Seg Neuts % (Manual) Lymphocytes % (Manual) Seg Neutrophils # Seg Neutrophils # Man Lymphocytes # (Manual) PT INR D-Dimer Heparin Anti-Xa Level Sodium Potassium Chloride Carbon Dioxide BUN Creatinine Glucose POC Glucose 152 H Magnesium Ferritin AST Lactate Dehydrogenase Troponin T C-Reactive Protein NT-Pro-B Natriuret Pep Albumin Triglycerides HDL Cholesterol Coronavirus (PCR)
--- NOTE | 2021-02-21 09:28 | Progress Note ---
Assessment and Plan Assessment and plan: 55-year-old female with PmHx of HTN, uterine fibroids and ex-smoker admitted for acute right MCA CVA and STEMI s/p PCI in RCA, now with acute respiratory distress requiring continuous Bipap. Hospital Course to date: 02/16/21- Patient AAOX4, with slurred speech and Lt. sided weakness. MRI/MRA brain pending. Remains on continuous Bipap, failed optiflow trial overnight. Bilateral infiltrate noted on today CXR additional lasix was adminstered to optimize Respiratory status, However was D/C due to marginal BP concern for Hypoperfusion. Will reassess in the Am. Plan to wean off Bipap as tolerated. Patient has been NPO due to continuous Bipap. When patient is off bipap nurse to complete bedside swallow screen, if fail will place NGT so pateint can received PO meds. Low grade temp today, TMAX 101.2 in last 24hrs, Bcult pending, on IV abx, ceftriaxone and azithromycin. COVID swab result pending, ID on the case rec to start dexamethasone 6 mg IV/p.o. daily for 10 days. 02/17/21- COVID PCR can back possible, patient was already on Rocephin and azithromaci, added Remdesevir per protocol, and IV decadron was initiated. Patient was wean to heated high flow, currently on 70% FiO2 and 40L. Wean O2 supplement as tolerated for a SPO2b goal above 88%. Persistent hyperglycemia, lantus increased to 10 units. Speech eval completed, patient pass swallow, order placed for pureed diet with thin liquid. Will continue to monitor, Heparing gtt per protocol, Am labs ordered. 02/18/21-blood sugars this morning over 300. Ordered 10 units of IV insulin once. Added 5 units scheduled insulin in addition to sliding scale insulin. Diet change to diabetic diet. 02/19/21: Transfer to floor. NG tube d/c. 02/20/21: Will get speech therapy to re-evaluate patient to see if patient can be escalated from pureed diet. Cardiology recommendations noted, BB is increased. Continue supportive management for covid 19 pneumonia. HFNC currently at 35 l/min/fio2=60%. Ok with sats > 88%. Attempted to call Durga but voicemail was to another person in chart. Will attempt to find another number to update . 02/21/2021. Patient currently with 35 L of oxygen with an FiO2 of 70%. Continue statin therapy, beta blockers, and DAPT with plavix and aspirin per cardiology recommendation. Continue intravenous heparin, ultimately will be transitioned to long-term warfarin therapy or a NOAC. #Neuro: Acute right MCA CVA - 02/13/21- CT head shows microvascular angiopathy, decreased attenuation along the posterior right frontal subcortical region, no acute intracranial hemorrhage - 02/13/2021- CTA head shows decreased attenuation along the posterior right frontal lobe, no CT evidence of significant stenosis involving proximal cerebral branches particularly the proximal right MCA - 02/13/21- CTA neck shows mild atherosclerotic calcification involving the proximal internal carotid arteries bilaterally without significant stenosis - MRI brain and MRA brain and neck pending - Per EMR intial NIH was 9 - Not candidate for any intervention- out of the time window - Aspirin, Plavix, & Lipitor ordered. - Prevent hypoperfusion, close monitor of blood pressure - Seizure precautions - PT/OT/ST eval - Neurology consulted, appreciate recommendations #CV: STEMI s/p PCI in RCA, h/o HTN #Rt. Ventricle Thrombus - 02/13/2021 Echo: EF 55%, mild concentric left ventricular Hypertrophy,suspected thrombus in right ventricle - Heparin protocol initiated, ok to transition to warfarin or NOAC on d/c - On Statin, beta-silas, Plavix and aspirin - 02/16 X1 dose rectal ASA- due to NPO status - SBP in the 110/120s. Prevent hypoperfusion, close monitoring of blood pressure- Goal SBP<160, Keep MAP>60 - proBNP:4086. 02/16Additional lasix today to optimize Respiratory status, However was D/C due to marginal BP concern for Hypoperfusion. Will reassess in the Am - Strict I&O #Respiratory: Acute hypoxic respiratory possibly due to COVID; COVID PUI - On heated high flow at 700% FiO2, 40L - Bilateral infiltrate appreciate from 02/16 CXR - 02/15 Elevated inflam. makers: DDimer>[id number], Ferrintin 837.7, LDH 766, CRP 21.50 - proBNP:4086. Additional lasix today to optimize Respiratory status, However was D/C due to marginal BP concern for Hypoperfusion. Will reassess in the Am - COVID swab pending - Continue to monitor SPO2 wean Bipap off to HFNC as tolerated for SPO2 above 88% - F/U chest Xray in the am - AM labs ordered - pulmo/CCM consulted, appreciate recommendations #GI: Dysphagia - Speech eval completed, pass swallow - Pureed diet with thin liquid order #: Acute kidney injury - improving - Initial cr. 1.5. Creatinine downtrending 1.1 today - No longer on IVFluid due to [place] infiltrate/fluif overload on CXR - proBNP:4086. Additional lasix today to optimize Respiratory status, However was D/C due to marginal BP concern for Hypoperfusion. Will reassess in the Am - Continue to monitor renal function. Am labs ordered - Consider nephrology consult if kidney function worsen - Strict I&Os, purewick in place #ID: acute sepsis 2/2 bilateral PNA, COVID PNA - 02/16 Bilateral infiltrate appreciate - TMAX 100.1, no leukocytosis WBC 8.1 - Elevated inflam. makers: [id number], Ferrintin 837.7, LDH 766, CRP 21.50 - 02/16 COVID positive, 02/16 BcultX2 pending - Procal pending - Currently on ceftriaxone and azithromycin X5days - 02/17 added remdesevir per protocol - 02/17 IV decadron [id number] - Contact/droplet precautions - AM labs ordered, F/U CXR in the am #Heme: Anemia - Hgb 12.3, MCV 77, MCH 26 - On heparin gtt per protocol, ASA and plavix - Monitor for s/s of bleeding - Bilateral SCDs for VTE proph - Monitor H&H and plts. AM labs ordered #Endo: Hyperglycemia - Hemoglobin A1c pending - Persistent hyperglycemia high dose SSI - Lantus increased to 10 units SUBQ History Interval history: No new issues overnight Hospitalist Physical - Constitutional Vitals: Temp Pulse Resp BP Pulse Ox 97.1 F L 79 18 150/89 95 02/21/21 04:27 02/21/21 05:08 02/21/21 05:08 02/21/21 05:07 02/21/21 05:08 General appearance: Present: mild distress, well-nourished - EENT Eyes: Present: PERRL, EOM intact ENT: hearing intact, clear oral mucosa, dentition normal - Neck Neck: Present: supple, normal ROM - Respiratory Respiratory effort: normal Respiratory: bilateral: CTA - Cardiovascular Rhythm: regular Heart Sounds: Present: S1 & S2. Absent: gallop, rub - Extremities Extremities: no ischemia, No edema, Full ROM - Abdominal General gastrointestinal: soft, non-tender, non-distended, normal bowel sounds - Integumentary Integumentary: Present: clear, warm, dry - Neurologic Neurologic: CNII-XII intact, moves all extremities HEART Score - HEART Score Troponin: Troponin T 0.992 ng/mL (0.00-0.029) H* 02/15/21 03:55 Results - Labs CBC & Chem 7: 02/21/21 04:45 02/20/21 08:45 Labs: Laboratory Last Values WBC 6.2 K/mm3 (4.5-11.0) 02/20/21 06:39 RBC 5.08 M/mm3 (3.65-5.03) H 02/20/21 06:39 Hgb 12.4 gm/dl (10.1-14.3) 02/21/21 04:45 Hct 38.9 % (30.3-42.9) 02/21/21 04:45 MCV 77 fl (79-97) L 02/20/21 06:39 MCH 25 pg (28-32) L 02/20/21 06:39 MCHC 33 % (30-34) 02/20/21 06:39 RDW 16.0 % (13.2-15.2) H 02/20/21 06:39 Plt Count 242 K/mm3 (140-440) 02/21/21 04:45 Lymph % (Auto) 4.9 % (13.4-35.0) L 02/15/21 03:55 [place] % (Auto) 5.3 % (0.0-7.3) 02/15/21 03:55 Eos % (Auto) 0.5 % (0.0-4.3) 02/15/21 03:55 Baso % (Auto) 0.1 % (0.0-1.8) 02/15/21 03:55 Lymph # (Auto) 0.5 K/mm3 (1.2-5.4) L 02/15/21 03:55 [place] # (Auto) 0.5 K/mm3 (0.0-0.8) 02/15/21 03:55 Eos # (Auto) 0.1 K/mm3 (0.0-0.4) 02/15/21 03:55 Baso # (Auto) 0.0 K/mm3 (0.0-0.1) 02/15/21 03:55 Add Manual Diff Complete 02/20/21 06:39 Total Counted 100 02/20/21 06:39 Seg Neutrophils % 89.2 % (40.0-70.0) H 02/15/21 03:55 Seg Neuts % (Manual) 88.0 % (40.0-70.0) H 02/20/21 06:39 Lymphocytes % (Manual) 4.0 % (13.4-35.0) L 02/20/21 06:39 Reactive Lymphs % (Man) 2.0 % 02/20/21 06:39 Monocytes % (Manual) 3.0 % (0.0-7.3) 02/20/21 06:39 Eosinophils % (Manual) 1.0 % (0.0-4.3) 02/20/21 06:39 Myelocytes % 2.0 % 02/20/21 06:39 Nucleated RBC % Not Reportable 02/20/21 06:39 Seg Neutrophils # 8.4 K/mm3 (1.8-7.7) H 02/15/21 03:55 Seg Neutrophils # Man 5.5 K/mm3 (1.8-7.7) 02/20/21 06:39 Band Neutrophils # 0.0 K/mm3 02/20/21 06:39 Lymphocytes # (Manual) 0.2 K/mm3 (1.2-5.4) L 02/20/21 06:39 Abs React Lymphs (Man) 0.1 K/mm3 02/20/21 06:39 Monocytes # (Manual) 0.2 K/mm3 (0.0-0.8) 02/20/21 06:39 Eosinophils # (Manual) 0.1 K/mm3 (0.0-0.4) 02/20/21 06:39 Basophils # (Manual) 0.0 K/mm3 (0.0-0.1) 02/20/21 06:39 Metamyelocytes # 0.0 K/mm3 02/20/21 06:39 Myelocytes # 0.1 K/mm3 02/20/21 06:39 Promyelocytes # 0.0 K/mm3 02/20/21 06:39 Blast Cells # 0.0 K/mm3 02/20/21 06:39 WBC Morphology Not Reportable 02/20/21 06:39 Hypersegmented Neuts Not Reportable 02/20/21 06:39 Hyposegmented Neuts Not Reportable 02/20/21 06:39 Hypogranular Neuts Not Reportable 02/20/21 06:39 Smudge Cells Not Reportable 02/20/21 06:39 Toxic Granulation Not Reportable 02/20/21 06:39 Toxic Vacuolation Not Reportable 02/20/21 06:39 Dohle Bodies Not Reportable 02/20/21 06:39 Pelger-Huet Anomaly Not Reportable 02/20/21 06:39 Aba Rods Not Reportable 02/20/21 06:39 Platelet Estimate Consistent w auto 02/20/21 06:39 Clumped Platelets Not Reportable 02/20/21 06:39 Plt Clumps, EDTA Not Reportable 02/20/21 06:39 Large Platelets Not Reportable 02/20/21 06:39 Giant Platelets Not Reportable 02/20/21 06:39 Platelet Satelliting Not Reportable 02/20/21 06:39 Plt Morphology Comment Not Reportable 02/20/21 06:39 RBC Morphology Normal 02/20/21 06:39 Dimorphic RBCs Not Reportable 02/20/21 06:39 Polychromasia Not Reportable 02/20/21 06:39 Hypochromasia Not Reportable 02/20/21 06:39 Poikilocytosis Not Reportable 02/20/21 06:39 Anisocytosis Not Reportable 02/20/21 06:39 Microcytosis Not Reportable 02/20/21 06:39 Macrocytosis Not Reportable 02/20/21 06:39 Spherocytes Not Reportable 02/20/21 06:39 Pappenheimer Bodies Not Reportable 02/20/21 06:39 Sickle Cells Not Reportable 02/20/21 06:39 Target Cells Not Reportable 02/20/21 06:39 Tear Drop Cells Not Reportable 02/20/21 06:39 Ovalocytes Not Reportable 02/20/21 06:39 Helmet Cells Not Reportable 02/20/21 06:39 [place] Bodies Not Reportable 02/20/21 06:39 [place] Rings Not Reportable 02/20/21 06:39 [place] Cells Not Reportable 02/20/21 06:39 Bite Cells Not Reportable 02/20/21 06:39 Crenated Cell Not Reportable 02/20/21 06:39 Elliptocytes Not Reportable 02/20/21 06:39 Acanthocytes (Spur) Not Reportable 02/20/21 06:39 Rouleaux Not Reportable 02/20/21 06:39 Hemoglobin C Crystals Not Reportable 02/20/21 06:39 Schistocytes Not Reportable 02/20/21 06:39 Malaria parasites Not Reportable 02/20/21 06:39 Alberto Bodies Not Reportable 02/20/21 06:39 Hem Pathologist Commnt No 02/20/21 06:39 PT 15.8 Sec. (12.2-14.9) H 02/15/21 18:20 INR 1.20 (0.87-1.13) H 02/15/21 18:20 APTT 30.2 Sec. (24.2-36.6) 02/15/21 18:20 Thrombin Time 17.2 Sec. (15.1-19.6) 02/14/21 20:21 D-Dimer 4275.78 ng/mlDDU (0-234) H 02/20/21 06:39 Heparin Anti-Xa Level 0.32 U.I./ml (0.3-0.7) 02/20/21 23:19 Sodium 151 mmol/L (137-145) H 02/20/21 08:45 Potassium 3.6 mmol/L (3.6-5.0) 02/20/21 08:45 Chloride 111.4 mmol/L (98-107) H 02/20/21 08:45 Carbon Dioxide 29 mmol/L (22-30) 02/20/21 08:45 Anion Gap 14 mmol/L 02/20/21 08:45 BUN 23 mg/dL (7-17) H 02/20/21 08:45 Creatinine 0.9 mg/dL (0.6-1.2) 02/20/21 08:45 Estimated GFR > 60 ml/min 02/20/21 08:45 BUN/Creatinine Ratio 26 % 02/20/21 08:45 Glucose 140 mg/dL (65-100) H 02/20/21 08:45 POC Glucose 152 mg/dL (70-105) H 02/21/21 07:43 Calcium 8.9 mg/dL (8.4-10.2) 02/20/21 08:45 Phosphorus 3.20 mg/dL (2.5-4.5) 02/15/21 08:38 Magnesium 2.30 mg/dL (1.7-2.3) 02/16/21 02:44 Ferritin 915.5 ng/mL (10.0-200.0) H 02/20/21 06:39 Total Bilirubin 0.30 mg/dL (0.1-1.2) 02/20/21 06:39 AST 36 units/L (5-40) 02/20/21 06:39 ALT 27 units/L (7-56) 02/20/21 06:39 Alkaline Phosphatase 74 units/L (35-129) 02/20/21 06:39 Lactate Dehydrogenase 645 units/L (91-180) H 02/20/21 06:39 Troponin T 0.992 ng/mL (0.00-0.029) H* 02/15/21 03:55 C-Reactive Protein 3.60 mg/dL (0.00-1.30) H 02/20/21 06:39 NT-Pro-B Natriuret Pep 4086 pg/mL (0-900) H 02/15/21 08:38 Total Protein 7.0 g/dL (6.3-8.2) 02/20/21 06:39 Albumin 3.1 g/dL (3.9-5) L 02/20/21 06:39 Albumin/Globulin Ratio 0.8 % 02/20/21 06:39 Triglycerides 292 mg/dL (2-149) H 02/14/21 20:21 Cholesterol 199 mg/dL (50-199) 02/14/21 20:21 LDL Cholesterol Direct 105 mg/dL (50-130) 02/14/21 20:21 HDL Cholesterol 23 mg/dL (40-59) L 02/14/21 20:21 Cholesterol/HDL Ratio 8.65 % 02/14/21 20:21 Procalcitonin 0.59 ng/mL (<0.15) 02/15/21 18:20 Coronavirus (PCR) Positive (Negative) A 02/16/21 Unknown Blood Type A POSITIVE 02/14/21 20:21 Antibody Screen Negative 02/14/21 20:21 Microbiology: Microbiology 02/16/21 07:40 Peripheral/Venous Blood Culture - Final NO GROWTH AFTER 5 DAYS 02/16/21 02:44 Peripheral/Venous Blood Culture - Final NO GROWTH AFTER 5 DAYS Taylor/IV: Voiding Method External Female Catheter Active Medications - Current Medications Current Medications: Generic Name Dose Route Start Last Admin Trade Name Freq PRN Reason Stop Dose Admin Acetaminophen 650 mg 02/16/21 01:00 02/16/21 02:09 Acetaminophen 650 Mg Rect Supp ID 650 mg Q6H PRN Administration Pain, Mild (1-3) Hydrocodone Bitart/Acetaminophen 1 each 02/14/21 21:57 02/20/21 18:16 Hydrocodone/Acetaminophen 5-325 Mg Tab PO 1 each Q6H PRN Administration Pain, Moderate (4-6) Albuterol 2.5 mg 02/14/21 21:54 Albuterol 2.5 Mg/3 Ml Nebu IH Q4HRT PRN Shortness Of Breath Lipase/Protease/Amylase 1 each 02/17/21 12:34 Lipase 10,500/Protease 25,000/Amylase 43,750 (Units) Dr Betts FEEDTUBE PRN PRN For Clogged Feeding Tube Aspirin 81 mg 02/16/21 12:00 02/20/21 11:38 Aspirin 81 Mg Tab Chew PO 81 mg QDAY KARYN Administration Atorvastatin Calcium 80 mg 02/15/21 22:00 02/20/21 22:09 Atorvastatin 40 Mg Tab PO 80 mg QHS KARYN Administration Clopidogrel Bisulfate 75 mg 02/15/21 10:00 02/20/21 11:39 Clopidogrel 75 Mg Tab PO 75 mg QDAY KARYN Administration Dexamethasone 10 mg 02/17/21 10:00 02/20/21 11:39 Dexamethasone 4 Mg/Ml Vial IV 02/26/21 10:01 10 mg Q24HR KARYN Administration Dextrose 0 ml 02/14/21 21:54 Dextrose 50% In Water (25gm) 50 Ml Syringe IV Q30MIN PRN Hypoglycemia Protocol Docusate Sodium 100 mg 02/14/21 22:04 Docusate Sodium 100 Mg Cap PO DAILY PRN Constip unreliev by MOM/or NPO Famotidine 20 mg 02/14/21 22:00 02/20/21 22:09 Famotidine 20 Mg/2 Ml Inj IV 20 mg BID KARYN Administration Ferrous Sulfate 308 mg 02/16/21 22:00 02/20/21 22:09 Ferrous Sulfate 308 Mg (62mg Elemental Iron) / 7 Ml Elixir FEEDTUBE 308 mg BID KARYN Administration Hydromorphone HCl 0.5 mg 02/14/21 21:54 02/18/21 22:00 Hydromorphone 1 Mg/1 Ml Inj IV 0.5 mg Q3H PRN Administration Pain , Severe (7-10) Hydrophilic Ointment 1 applic 02/20/21 09:00 Lip Therapy Vaseline TP DIRECT PRN Dry Lips Heparin Sodium/Sodium Chloride 25,000 unit in 500 mls @ 20 mls/hr 02/15/21 14:00 02/21/21 00:08 Heparin/ 0.45% Nacl-25,000 Unit/500 Ml IV Infused TITRATE [facility] Titration Protocol 1,000 UNITS/HR REMDESIVIR 100 mg/ Sodium 250 mls @ 500 mls/hr 02/18/21 21:00 02/20/21 22:08 Chloride IV 02/21/21 21:29 500 mls/hr Q24HR@2100 [facility] Administration Insulin Glargine 10 units 02/17/21 22:00 02/20/21 23:09 Insulin Glargine 100 Units/Ml SUB-Q 10 units QHS [facility] Administration Insulin Human Lispro 0 unit 02/17/21 22:00 02/20/21 23:09 Insulin Lispro 100 Unit/Ml SUB-Q 10 unit [facility] Administration Protocol Insulin Human Regular 5 units 02/18/21 16:30 02/20/21 23:09 Insulin Regular, Human 100 Units/1 Ml SUB-Q 5 units [facility] Administration Melatonin 5 mg 02/16/21 17:53 02/17/21 21:39 Melatonin 5 Mg Tab PO 5 mg QHS PRN Administration Sleep Metoprolol Tartrate 50 mg 02/19/21 22:00 02/20/21 22:09 Metoprolol Tartrate 50 Mg Tab PO 50 mg BID [facility] Administration Morphine Sulfate 2 mg 02/14/21 21:54 Morphine 2 Mg/1 Ml Inj IV Q4H PRN Pain, Moderate (4-6) Ondansetron HCl 4 mg 02/14/21 21:54 02/17/21 21:38 Ondansetron 4 Mg/2 Ml Inj IV 4 mg Q8H PRN Administration Nausea And Vomiting Simple Syrup 15 ml 02/17/21 12:34 Simple Syrup 15 Ml FEEDTUBE PRN PRN Hypoglycemia Simple Syrup 30 ml 02/17/21 12:34 Simple Syrup 15 Ml FEEDTUBE PRN PRN Hypoglycemia Sodium Bicarbonate 325 mg 02/17/21 12:34 Sodium Bicarbonate 325 Mg Tab FEEDTUBE PRN PRN For Clogged Feeding Tube Sodium Chloride 10 ml 02/14/21 22:00 02/20/21 22:10 Sodium Chloride 0.9% 10 Ml Flush Syringe IV 10 ml BID KARYN Administration Sodium Chloride 10 ml 02/14/21 21:54 Sodium Chloride 0.9% 10 Ml Flush Syringe IV PRN PRN LINE FLUSH Nutrition/Malnutrition Assess - Dietary Evaluation Nutrition/Malnutrition Findings: Nutrition Notes Start: 02/15/21 12:03 Freq: Status: Active Protocol: Document 02/20/21 16:12 GB (Rec: 02/20/21 16:21 GB [id number]) Nutrition Notes Initial or Follow up Reassessment Current Diagnosis Diabetes,Hypertension, Respiratory Failure,Stroke Other Pertinent Diagnosis hyperglycemia, STEMI Current Diet Mechanical soft, thni liquids Labs/Tests 02/20: Na 151, BUN 23, glucose 140, ferritin 915.3 Pertinent Medications ferrous sulfate, NaCl/Hep, NaCl, remdesivir Height 5 ft 4 in Weight 104.3 kg [place] Body Weight (kg) 54.54 BMI 39.4 Weight change and time frame no significant changes at this time Weight Status Obese Subjective/Other Information per MD ntoes 02/20: NG d/c 02/19 . ONLINE USER EXPERIENCE STRATEGIST eval advanced diet texture to mechanical soft thin liquids. PO recorded 25% x 1 meal. Adding glucerna BID for additional calories/ protein while po intake recovers. Percent of energy/protein needs met: PO intake of meals and supplement 50% or greater will meet 75% or greater of estimated energy needs. Burn Absent Trauma Absent GI Symptoms None Difficulty In Swallowing Food Allergy No Current % PO Poor (25-49%) Minimum of two criteria No #2 Nutrition Diagnosis Inadequate energy intake Etiology DM, collapse As Evidenced by Signs and Symptoms Recent advancement to PO intake with mechanically altered texture diet, NG d/c , need for nutritional supplement beverage to meet estimated energy needs. #1 Nutrition Diagnosis Other: (Specify in comment below) Comments: Comprimised PO intake, dependency for enteral feed to meet nutrition needs Etiology DM, collapse, As Evidenced by Signs and Symptoms not able to eat PO at this time, MD order for TF Diagnosis Progress(for reassessment Resolved documentation) Is patient on ventilator? No Is Patient Ambulatory and/or Out of Bed Yes REE-(Gilchrist-St. Jeor-ambulatory/OOB) [ 2103.400 NUTR.MSJOOB] Kcal/Kg value to use for calculation 17 Approximate Energy Requirements Using 1773 kcal/Kg Calculation Used for Recommendations Kcal/kg Additional Notes Protein: 0.7-1 g/kg @ 104k-104g Fluids: 1 ml/kcal or per MD Nutrition Intervention Change Diet Order: Continue with current diet advancing texture per ONLINE USER EXPERIENCE STRATEGIST Nutrition Support: n/a Add Supplement/Snack (indicate name/kcal glucerna BID /protein ) Provides kCal: 440 Provides Protein (gm) 20 Goal #1 PO intake of meals to improve to 50% or greater during LOS Goal #2 weight to maintain within -3% current weight for LOS Goal #3 PO intake of nutritional supplement beverage to be 50% or greater BID daily during LOS Follow-Up By: 02/27/21 Additional Comments Follow PO intake of meals/ supplements
--- NOTE | 2021-02-21 10:41 | XRay Report ---
CHEST 1 VIEW INDICATION: Increase in oxygen in COVID positive patient. COMPARISON: One day prior. FINDINGS: Support devices: None. Heart: Stable. Lungs/Pleura: Bilateral pulmonary opacities are stable. No pneumothorax. IMPRESSION: 1. No significant change. Signer Name: Connor Costello MD Signed: 02/21/2021 10:36 AM Workstation Name: [id number]
[2021-02-21] MEDS: FAMOTIDINE 20 MG TAB PO SCH ×2 (11:17→23:30)
[2021-02-21] MEDS: METOPROLOL TARTRATE 50 MG TAB PO SCH ×2 (11:17→23:30)
[2021-02-21] MEDS: ASPIRIN 81 MG TAB CHEW PO SCH (11:18)
[2021-02-21] MEDS: dexAMETHasone 4 MG/ML VIAL IV SCH (11:18)
[2021-02-21] MEDS: CLOPIDOGREL 75 MG TAB PO SCH (11:18)
[2021-02-21] MEDS: FERROUS SULFATE 308 MG (62mg Elemental Iron) / 7 ML ELIXIR FEEDTUBE SCH (11:18)
[2021-02-21] MEDS: HEPARIN/ 0.45% NACL DRIP 25,000 UNIT/500 ML BAG IV SCH (11:31)
[2021-02-21] MEDS ORDERED: FUROSEMIDE 40 MG/4 ML INJ IV ONE ×2 (13:34→17:34)
--- NOTE | 2021-02-21 14:26 | Progress Note ---
Assessment and Plan Cultures: 02/16/2021 blood culture: no growth SARS CoV2 PCR positive Assessment: 55-year-old female with history of diabetes mellitus, admitted on 02/14/2021 secondary to left-sided weakness, left facial droop and dysarthria for unknown amount of time likely 12-24h with a previous 2-week history of flulike symptoms: #Acute sepsis: likely secondary to bilateral pneumonia +/- STEMI +/- CVA. #Bilateral pneumonia: secondary to COVID. CXR with bilateral pneumonia. Initial labs: CRP 21.5, ferritin 837, LDH 766, D-dimer > 10K. Received Actemra on 02/17/2021. Procal moderately elevated, completed ceftriaxone and azithromycin course #Acute hypoxemic respiratory failure: requiring BiPAP/HFNC #Elevated LFTs: from sepsis/COVID #ADAM: resolved. #STEMI: s/p heart cath with stent placement in the RCA. #Possible CVA: Patient was out of window of TPA per neuro. Recommendations: -Received Actemra on 02/17/2021 -continue remdesivir x 5 days -continue dexamethasone IV/PO daily for 10 days -CRP improved -guarded prognosis Simin Engel MD, FACP [facility] O: [phone] F: [phone] Subjective Date of service: 02/21/21 Principal diagnosis: CVA with left side weakness ,elevated inflammatory markers Interval history: Afebrile. Remains on high flow nasal cannula. Objective - Exam Narrative Exam: Physical Exam (reviewed in chart to minimize risk of transmission) Constitutional: deferred Head, Ears, Nose: deferred Eyes: deferred Neck: deferred Oral: deferred Cardiovascular: deferred Respiratory: deferred GI: deferred Musculoskeletal: deferred Skin: deferred Hem/Lymphatic: deferred Psych: deferred Neurological: deferred - Constitutional Vitals: Vital Signs Temp Pulse Resp BP Pulse Ox 97.1 F L 79 18 150/89 95 02/21/21 04:27 02/21/21 05:08 02/21/21 05:08 02/21/21 05:07 02/21/21 05:08 Temperature -Last 24 Hours Temperature 97.1 F Temperature 97.8 F - Labs CBC & Chem 7: 02/21/21 04:45 02/20/21 08:45 Labs: Abnormal lab results 02/20/21 02/20/21 02/20/21 Range/Units 06:39 18:01 22:20 Seg Neuts % (Manual) 88.0 H (40.0-70.0) % Lymphocytes % (Manual) 4.0 L (13.4-35.0) % Lymphocytes # (Manual) 0.2 L (1.2-5.4) K/mm3 POC Glucose 337 H 379 H (70-105) mg/dL 02/21/21 02/21/21 Range/Units 07:43 11:42 Seg Neuts % (Manual) (40.0-70.0) % Lymphocytes % (Manual) (13.4-35.0) % Lymphocytes # (Manual) (1.2-5.4) K/mm3 POC Glucose 152 H 206 H (70-105) mg/dL
[2021-02-21] MEDS ORDERED: SODIUM CHLORIDE 0.9% 500 ML 500 ML ONE (23:14)
[2021-02-21] MEDS ORDERED: SODIUM CHLORIDE 0.9% 50 ML ONE (23:26)
[2021-02-21] MEDS: REMDESIVIR 100 MG in SODIUM CHLORIDE 0.9% 250ML 250 ML IV SCH (23:31)
[2021-02-21] MEDS: INSULIN GLARGINE 100 UNITS/ML SUB-Q SCH (23:32)
[2021-02-22] MEDS: FERROUS SULFATE 300 MG (60MG Elemental Iron) / 5 mL ORAL LIQD FEEDTUBE SCH ×3 (01:04→22:14)
[2021-02-22] MEDS: HEPARIN/ 0.45% NACL DRIP 25,000 UNIT/500 ML BAG IV SCH (07:34)
[2021-02-22 07:51] LABS: BUN/Creatinine Ratio 24; Blood Urea Nitrogen 19 mg/dL (7-17); Calcium 9.2 mg/dL (8.4-10.2); Hemolysis Index 0
--- NOTE | 2021-02-22 09:01 | Progress Note ---
Assessment and Plan Acute inferior FL secondary to RCA thrombus s/p PCI of the RCA RV thrombus Echocardiogram showed a mobile mass in the right ventricle, suggestive of venous thromboembolism in transition Acute CVA COVID-19 pneumonia Respiratory failure requiring HFNC Hypernatremia Diabetes Hypertension Continue statin therapy, beta blockers, and DAPT with plavix and aspirin. Continue intravenous heparin, ultimately will be transitioned to long-term warfarin therapy or a NOAC. Subjective Date of service: 02/22/21 Principal diagnosis: CVA with left side weakness ,elevated inflammatory markers Interval history: Patient has no complaints. Remains on high flow oxygen. No distress noted. Objective Vital Signs Temp Pulse Resp BP Pulse Ox 02/22/21 06:57 83 18 94 02/22/21 05:59 98.6 F 86 20 89 02/22/21 05:58 126/77 88 02/22/21 03:27 97 02/21/21 23:30 93 02/21/21 22:59 98.4 F 79 18 128/84 93 02/21/21 22:11 100 02/21/21 17:45 98 02/21/21 16:32 98.4 F 78 18 151/102 90 02/21/21 11:45 98.4 F 73 18 154/108 100 02/21/21 10:00 95 02/21/21 09:20 96 - Physical Examination Narrative exam: Deferred due to isolation protocol. General: No Apparent Distress HEENT: Positive: PERRL Neck: Positive: trachea midline Cardiac: Positive: Reg Rate and Rhythm - Labs and Meds Comprehensive Metabolic Panel 02/22/21 Range/Units 06:50 Sodium 144 (137-145) mmol/L Potassium 3.5 L (3.6-5.0) mmol/L Chloride 105.2 (98-107) mmol/L Carbon Dioxide 31 H (22-30) mmol/L BUN 19 H (7-17) mg/dL Creatinine 0.8 (0.6-1.2) mg/dL Glucose 118 H (65-100) mg/dL Calcium 9.2 (8.4-10.2) mg/dL - Imaging and Cardiology Echo: other (02/14/2021 Echo - Normal LV and RV systolic function, thrombus in RV)
[2021-02-22] MEDS: CLOPIDOGREL 75 MG TAB PO SCH (09:15)
[2021-02-22] MEDS: METOPROLOL TARTRATE 50 MG TAB PO SCH ×2 (09:15→22:12)
[2021-02-22] MEDS: INSULIN LISPRO 100 UNIT/ML SUB-Q SCH ×4 (09:15→22:11)
[2021-02-22] MEDS: DOCUSATE SODIUM 100 MG CAP PO PRN (09:15)
[2021-02-22] MEDS: FAMOTIDINE 20 MG TAB PO SCH ×2 (09:15→22:13)
[2021-02-22] MEDS: ASPIRIN 81 MG TAB CHEW PO SCH (09:15)
[2021-02-22] MEDS: dexAMETHasone 4 MG/ML VIAL IV SCH (09:16)
[2021-02-22] MEDS: INSULIN REGULAR, HUMAN 100 UNITS/1 ML SUB-Q SCH ×4 (09:16→22:13)
--- NOTE | 2021-02-22 09:39 | Progress Note ---
Assessment and Plan Assessment and plan: 55-year-old female with PmHx of HTN, uterine fibroids and ex-smoker admitted for acute right MCA CVA and STEMI s/p PCI in RCA, now with acute respiratory distress requiring continuous Bipap. Hospital Course to date: 02/16/21- Patient AAOX4, with slurred speech and Lt. sided weakness. MRI/MRA brain pending. Remains on continuous Bipap, failed optiflow trial overnight. Bilateral infiltrate noted on today CXR additional lasix was adminstered to optimize Respiratory status, However was D/C due to marginal BP concern for Hypoperfusion. Will reassess in the Am. Plan to wean off Bipap as tolerated. Patient has been NPO due to continuous Bipap. When patient is off bipap nurse to complete bedside swallow screen, if fail will place NGT so pateint can received PO meds. Low grade temp today, TMAX 101.2 in last 24hrs, Bcult pending, on IV abx, ceftriaxone and azithromycin. COVID swab result pending, ID on the case rec to start dexamethasone 6 mg IV/p.o. daily for 10 days. 02/17/21- COVID PCR can back possible, patient was already on Rocephin and azithromaci, added Remdesevir per protocol, and IV decadron was initiated. Patient was wean to heated high flow, currently on 70% FiO2 and 40L. Wean O2 supplement as tolerated for a SPO2b goal above 88%. Persistent hyperglycemia, lantus increased to 10 units. Speech eval completed, patient pass swallow, order placed for pureed diet with thin liquid. Will continue to monitor, Heparing gtt per protocol, Am labs ordered. 02/18/21-blood sugars this morning over 300. Ordered 10 units of IV insulin once. Added 5 units scheduled insulin in addition to sliding scale insulin. Diet change to diabetic diet. 02/19/21: Transfer to floor. NG tube d/c. 02/20/21: Will get speech therapy to re-evaluate patient to see if patient can be escalated from pureed diet. Cardiology recommendations noted, BB is increased. Continue supportive management for covid 19 pneumonia. HFNC currently at 35 l/min/fio2=60%. Ok with sats > 88%. Attempted to call Durga but voicemail was to another person in chart. Will attempt to find another number to update . 02/21/2021. Patient currently with 35 L of oxygen with an FiO2 of 70%. Continue statin therapy, beta blockers, and DAPT with plavix and aspirin per cardiology recommendation. Continue intravenous heparin, ultimately will be transitioned to long-term warfarin therapy or a NOAC. 02/22/2021. Patient's oxygen requirement has been decreased to 30 L/min via HFNC with FiO2 50%. Continue per ID and pulmonary recommendations. Patient received Actemra 02/17/2021. Complete remdesivir x5 days. Complete dexamethasone IV for 10 days. Cardiology also recommends continued statin therapy, beta-blockers and DAPT with Plavix and aspirin. Continue IV heparin and transition to long-term warfarin or NOAC per cardiology #Neuro: Acute right MCA CVA - 02/13/21- CT head shows microvascular angiopathy, decreased attenuation along the posterior right frontal subcortical region, no acute intracranial hemorrhage - 02/13/2021- CTA head shows decreased attenuation along the posterior right frontal lobe, no CT evidence of significant stenosis involving proximal cerebral branches particularly the proximal right MCA - 02/13/21- CTA neck shows mild atherosclerotic calcification involving the proximal internal carotid arteries bilaterally without significant stenosis - MRI brain and MRA brain and neck pending - Per EMR intial NIH was 9 - Not candidate for any intervention- out of the time window - Aspirin, Plavix, & Lipitor ordered. - Prevent hypoperfusion, close monitor of blood pressure - Seizure precautions - PT/OT/ST eval - Neurology consulted, appreciate recommendations #CV: STEMI s/p PCI in RCA, h/o HTN #Rt. Ventricle Thrombus - 02/13/2021 Echo: EF 55%, mild concentric left ventricular Hypertrophy,suspected thrombus in right ventricle - Heparin protocol initiated, ok to transition to warfarin or NOAC on d/c - On Statin, beta-silas, Plavix and aspirin - 02/16 X1 dose rectal ASA- due to NPO status - SBP in the 110/120s. Prevent hypoperfusion, close monitoring of blood pressure- Goal SBP<160, Keep MAP>60 - proBNP:4086. 02/16Additional lasix today to optimize Respiratory status, However was D/C due to marginal BP concern for Hypoperfusion. Will reassess in the Am - Strict I&O #Respiratory: Acute hypoxic respiratory possibly due to COVID; COVID PUI - On heated high flow at 700% FiO2, 40L - Bilateral infiltrate appreciate from 02/16 CXR - 02/15 Elevated inflam. makers: [id number], Ferrintin 837.7, LDH 766, CRP 21.50 - proBNP:4086. Additional lasix today to optimize Respiratory status, However was D/C due to marginal BP concern for Hypoperfusion. Will reassess in the Am - COVID swab pending - Continue to monitor SPO2 wean Bipap off to HFNC as tolerated for SPO2 above 88% - F/U chest Xray in the am - AM labs ordered - pulmo/CCM consulted, appreciate recommendations #GI: Dysphagia - Speech eval completed, pass swallow - Pureed diet with thin liquid order #: Acute kidney injury - improving - Initial cr. 1.5. Creatinine downtrending 1.1 today - No longer on IVFluid due to [place] infiltrate/fluif overload on CXR - proBNP:4086. Additional lasix today to optimize Respiratory status, However was D/C due to marginal BP concern for Hypoperfusion. Will reassess in the Am - Continue to monitor renal function. Am labs ordered - Consider nephrology consult if kidney function worsen - Strict I&Os, purewick in place #ID: acute sepsis 2/2 bilateral PNA, COVID PNA - 02/16 Bilateral infiltrate appreciate - TMAX 100.1, no leukocytosis WBC 8.1 - Elevated inflam. makers: [id number], Ferrintin 837.7, LDH 766, CRP 21.50 - 02/16 COVID positive, 02/16 BcultX2 pending - Procal pending - Currently on ceftriaxone and azithromycin X5days - 02/17 added remdesevir per protocol - 02/17 IV decadron [id number] - Contact/droplet precautions - AM labs ordered, F/U CXR in the am #Heme: Anemia - Hgb 12.3, MCV 77, MCH 26 - On heparin gtt per protocol, ASA and plavix - Monitor for s/s of bleeding - Bilateral SCDs for VTE proph - Monitor H&H and plts. AM labs ordered #Endo: Hyperglycemia - Hemoglobin A1c pending - Persistent hyperglycemia high dose SSI - Lantus increased to 10 units SUBQ History Interval history: No new issues overnight Hospitalist Physical - Constitutional Vitals: Temp Pulse Resp BP Pulse Ox 98.6 F 83 18 126/77 94 02/22/21 05:59 02/22/21 06:57 02/22/21 06:57 02/22/21 05:58 02/22/21 06:57 General appearance: Present: mild distress, well-nourished - EENT Eyes: Present: PERRL, EOM intact ENT: hearing intact, clear oral mucosa, dentition normal - Neck Neck: Present: supple, normal ROM - Respiratory Respiratory effort: normal Respiratory: bilateral: CTA - Cardiovascular Rhythm: regular Heart Sounds: Present: S1 & S2. Absent: gallop, rub - Extremities Extremities: no ischemia, No edema, Full ROM - Abdominal General gastrointestinal: soft, non-tender, non-distended, normal bowel sounds - Integumentary Integumentary: Present: clear, warm, dry - Neurologic Neurologic: CNII-XII intact, moves all extremities HEART Score - HEART Score Troponin: Troponin T 0.992 ng/mL (0.00-0.029) H* 02/15/21 03:55 Results - Labs CBC & Chem 7: 02/21/21 04:45 02/22/21 06:50 Labs: Laboratory Last Values WBC 6.2 K/mm3 (4.5-11.0) 02/20/21 06:39 RBC 5.08 M/mm3 (3.65-5.03) H 02/20/21 06:39 Hgb 12.4 gm/dl (10.1-14.3) 02/21/21 04:45 Hct 38.9 % (30.3-42.9) 02/21/21 04:45 MCV 77 fl (79-97) L 02/20/21 06:39 MCH 25 pg (28-32) L 02/20/21 06:39 MCHC 33 % (30-34) 02/20/21 06:39 RDW 16.0 % (13.2-15.2) H 02/20/21 06:39 Plt Count 242 K/mm3 (140-440) 02/21/21 04:45 Lymph % (Auto) 4.9 % (13.4-35.0) L 02/15/21 03:55 Rush % (Auto) 5.3 % (0.0-7.3) 02/15/21 03:55 Eos % (Auto) 0.5 % (0.0-4.3) 02/15/21 03:55 Baso % (Auto) 0.1 % (0.0-1.8) 02/15/21 03:55 Lymph # (Auto) 0.5 K/mm3 (1.2-5.4) L 02/15/21 03:55 Rush # (Auto) 0.5 K/mm3 (0.0-0.8) 02/15/21 03:55 Eos # (Auto) 0.1 K/mm3 (0.0-0.4) 02/15/21 03:55 Baso # (Auto) 0.0 K/mm3 (0.0-0.1) 02/15/21 03:55 Add Manual Diff Complete 02/20/21 06:39 Total Counted 100 02/20/21 06:39 Seg Neutrophils % 89.2 % (40.0-70.0) H 02/15/21 03:55 Seg Neuts % (Manual) 88.0 % (40.0-70.0) H 02/20/21 06:39 Lymphocytes % (Manual) 4.0 % (13.4-35.0) L 02/20/21 06:39 Reactive Lymphs % (Man) 2.0 % 02/20/21 06:39 Monocytes % (Manual) 3.0 % (0.0-7.3) 02/20/21 06:39 Eosinophils % (Manual) 1.0 % (0.0-4.3) 02/20/21 06:39 Myelocytes % 2.0 % 02/20/21 06:39 Nucleated RBC % Not Reportable 02/20/21 06:39 Seg Neutrophils # 8.4 K/mm3 (1.8-7.7) H 02/15/21 03:55 Seg Neutrophils # Man 5.5 K/mm3 (1.8-7.7) 02/20/21 06:39 Band Neutrophils # 0.0 K/mm3 02/20/21 06:39 Lymphocytes # (Manual) 0.2 K/mm3 (1.2-5.4) L 02/20/21 06:39 Abs React Lymphs (Man) 0.1 K/mm3 02/20/21 06:39 Monocytes # (Manual) 0.2 K/mm3 (0.0-0.8) 02/20/21 06:39 Eosinophils # (Manual) 0.1 K/mm3 (0.0-0.4) 02/20/21 06:39 Basophils # (Manual) 0.0 K/mm3 (0.0-0.1) 02/20/21 06:39 Metamyelocytes # 0.0 K/mm3 02/20/21 06:39 Myelocytes # 0.1 K/mm3 02/20/21 06:39 Promyelocytes # 0.0 K/mm3 02/20/21 06:39 Blast Cells # 0.0 K/mm3 02/20/21 06:39 WBC Morphology Not Reportable 02/20/21 06:39 Hypersegmented Neuts Not Reportable 02/20/21 06:39 Hyposegmented Neuts Not Reportable 02/20/21 06:39 Hypogranular Neuts Not Reportable 02/20/21 06:39 Smudge Cells Not Reportable 02/20/21 06:39 Toxic Granulation Not Reportable 02/20/21 06:39 Toxic Vacuolation Not Reportable 02/20/21 06:39 Dohle Bodies Not Reportable 02/20/21 06:39 Pelger-Huet Anomaly Not Reportable 02/20/21 06:39 Aba Rods Not Reportable 02/20/21 06:39 Platelet Estimate Consistent w auto 02/20/21 06:39 Clumped Platelets Not Reportable 02/20/21 06:39 Plt Clumps, EDTA Not Reportable 02/20/21 06:39 Large Platelets Not Reportable 02/20/21 06:39 Giant Platelets Not Reportable 02/20/21 06:39 Platelet Satelliting Not Reportable 02/20/21 06:39 Plt Morphology Comment Not Reportable 02/20/21 06:39 RBC Morphology Normal 02/20/21 06:39 Dimorphic RBCs Not Reportable 02/20/21 06:39 Polychromasia Not Reportable 02/20/21 06:39 Hypochromasia Not Reportable 02/20/21 06:39 Poikilocytosis Not Reportable 02/20/21 06:39 Anisocytosis Not Reportable 02/20/21 06:39 Microcytosis Not Reportable 02/20/21 06:39 Macrocytosis Not Reportable 02/20/21 06:39 Spherocytes Not Reportable 02/20/21 06:39 Pappenheimer Bodies Not Reportable 02/20/21 06:39 Sickle Cells Not Reportable 02/20/21 06:39 Target Cells Not Reportable 02/20/21 06:39 Tear Drop Cells Not Reportable 02/20/21 06:39 Ovalocytes Not Reportable 02/20/21 06:39 Helmet Cells Not Reportable 02/20/21 06:39 [place] Bodies Not Reportable 02/20/21 06:39 [place] Rings Not Reportable 02/20/21 06:39 [place] Cells Not Reportable 02/20/21 06:39 Bite Cells Not Reportable 02/20/21 06:39 Crenated Cell Not Reportable 02/20/21 06:39 Elliptocytes Not Reportable 02/20/21 06:39 Acanthocytes (Spur) Not Reportable 02/20/21 06:39 Rouleaux Not Reportable 02/20/21 06:39 Hemoglobin C Crystals Not Reportable 02/20/21 06:39 Schistocytes Not Reportable 02/20/21 06:39 Malaria parasites Not Reportable 02/20/21 06:39 Alberto Bodies Not Reportable 02/20/21 06:39 Hem Pathologist Commnt No 02/20/21 06:39 PT 15.8 Sec. (12.2-14.9) H 02/15/21 18:20 INR 1.20 (0.87-1.13) H 02/15/21 18:20 APTT 30.2 Sec. (24.2-36.6) 02/15/21 18:20 Thrombin Time 17.2 Sec. (15.1-19.6) 02/14/21 20:21 D-Dimer 4275.78 ng/mlDDU (0-234) H 02/20/21 06:39 Heparin Anti-Xa Level 0.32 U.I./ml (0.3-0.7) 02/22/21 06:50 Sodium 144 mmol/L (137-145) 02/22/21 06:50 Potassium 3.5 mmol/L (3.6-5.0) L 02/22/21 06:50 Chloride 105.2 mmol/L (98-107) 02/22/21 06:50 Carbon Dioxide 31 mmol/L (22-30) H 02/22/21 06:50 Anion Gap 11 mmol/L 02/22/21 06:50 BUN 19 mg/dL (7-17) H 02/22/21 06:50 Creatinine 0.8 mg/dL (0.6-1.2) 02/22/21 06:50 Estimated GFR > 60 ml/min 02/22/21 06:50 BUN/Creatinine Ratio 24 % 02/22/21 06:50 Glucose 118 mg/dL (65-100) H 02/22/21 06:50 POC Glucose 148 mg/dL (70-105) H 02/22/21 07:55 Calcium 9.2 mg/dL (8.4-10.2) 02/22/21 06:50 Phosphorus 3.30 mg/dL (2.5-4.5) 02/22/21 06:50 Magnesium 1.80 mg/dL (1.7-2.3) 02/22/21 06:50 Ferritin 915.5 ng/mL (10.0-200.0) H 02/20/21 06:39 Total Bilirubin 0.30 mg/dL (0.1-1.2) 02/20/21 06:39 AST 36 units/L (5-40) 02/20/21 06:39 ALT 27 units/L (7-56) 02/20/21 06:39 Alkaline Phosphatase 74 units/L (35-129) 02/20/21 06:39 Lactate Dehydrogenase 645 units/L (91-180) H 02/20/21 06:39 Troponin T 0.992 ng/mL (0.00-0.029) H* 02/15/21 03:55 C-Reactive Protein 3.60 mg/dL (0.00-1.30) H 02/20/21 06:39 NT-Pro-B Natriuret Pep 4086 pg/mL (0-900) H 02/15/21 08:38 Total Protein 7.0 g/dL (6.3-8.2) 02/20/21 06:39 Albumin 3.1 g/dL (3.9-5) L 02/20/21 06:39 Albumin/Globulin Ratio 0.8 % 02/20/21 06:39 Triglycerides 292 mg/dL (2-149) H 02/14/21 20:21 Cholesterol 199 mg/dL (50-199) 02/14/21 20:21 LDL Cholesterol Direct 105 mg/dL (50-130) 02/14/21 20:21 HDL Cholesterol 23 mg/dL (40-59) L 02/14/21 20:21 Cholesterol/HDL Ratio 8.65 % 02/14/21 20:21 Procalcitonin 0.59 ng/mL (<0.15) 02/15/21 18:20 Coronavirus (PCR) Positive (Negative) A 02/16/21 Unknown Blood Type A POSITIVE 02/14/21 20:21 Antibody Screen Negative 02/14/21 20:21 Microbiology: Microbiology 02/16/21 07:40 Peripheral/Venous Blood Culture - Final NO GROWTH AFTER 5 DAYS Taylor/IV: Voiding Method External Female Catheter Active Medications - Current Medications Current Medications: Generic Name Dose Route Start Last Admin Trade Name Freq PRN Reason Stop Dose Admin Acetaminophen 650 mg 02/16/21 01:00 02/16/21 02:09 Acetaminophen 650 Mg Rect Supp MT 650 mg Q6H PRN Administration Pain, Mild (1-3) Hydrocodone Bitart/Acetaminophen 1 each 02/14/21 21:57 02/20/21 18:16 Hydrocodone/Acetaminophen 5-325 Mg Tab PO 1 each Q6H PRN Administration Pain, Moderate (4-6) Albuterol 2.5 mg 02/14/21 21:54 Albuterol 2.5 Mg/3 Ml Nebu IH Q4HRT PRN Shortness Of Breath Lipase/Protease/Amylase 1 each 02/17/21 12:34 Lipase 10,500/Protease 25,000/Amylase 43,750 (Units) Dr Betts FEEDTUBE PRN PRN For Clogged Feeding Tube Aspirin 81 mg 02/16/21 12:00 02/22/21 09:15 Aspirin 81 Mg Tab Chew PO 81 mg QDAY KARYN Administration Atorvastatin Calcium 80 mg 02/15/21 22:00 02/21/21 23:30 Atorvastatin 40 Mg Tab PO 80 mg QHS KARYN Administration Clopidogrel Bisulfate 75 mg 02/15/21 10:00 02/22/21 09:15 Clopidogrel 75 Mg Tab PO 75 mg QDAY KARYN Administration Dexamethasone 10 mg 02/17/21 10:00 02/22/21 09:16 Dexamethasone 4 Mg/Ml Vial IV 02/26/21 10:01 10 mg Q24HR KARYN Administration Dextrose 0 ml 02/14/21 21:54 Dextrose 50% In Water (25gm) 50 Ml Syringe IV Q30MIN PRN Hypoglycemia Protocol Docusate Sodium 100 mg 02/14/21 22:04 02/22/21 09:15 Docusate Sodium 100 Mg Cap PO 100 mg DAILY PRN Administration Constip unreliev by MOM/or NPO Famotidine 20 mg 02/21/21 10:00 02/22/21 09:15 Famotidine 20 Mg Tab PO 20 mg BID KARYN Administration Ferrous Sulfate 300 mg 02/21/21 22:00 02/22/21 09:15 Ferrous Sulfate 300 Mg (60mg Elemental Iron) / 5 Ml Oral Liqd FEEDTUBE 300 mg BID KARYN Administration Hydromorphone HCl 0.5 mg 02/14/21 21:54 02/18/21 22:00 Hydromorphone 1 Mg/1 Ml Inj IV 0.5 mg Q3H PRN Administration Pain , Severe (7-10) Hydrophilic Ointment 1 applic 02/20/21 09:00 Lip Therapy Vaseline TP DIRECT PRN Dry Lips Heparin Sodium/Sodium Chloride 25,000 unit in 500 mls @ 20 mls/hr 02/15/21 14:00 02/22/21 07:34 Heparin/ 0.45% Nacl-25,000 Unit/500 Ml IV 1,200 units/hr TITRATE KARYN 24 mls/hr Administration Protocol 1,000 UNITS/HR Insulin Glargine 10 units 02/17/21 22:00 02/21/21 23:32 Insulin Glargine 100 Units/Ml SUB-Q 10 units QHS KARYN Administration Insulin Human Lispro 0 unit 02/17/21 22:00 02/22/21 09:15 Insulin Lispro 100 Unit/Ml SUB-Q 4 unit ACHS [facility] Administration Protocol Insulin Human Regular 5 units 02/18/21 16:30 02/22/21 09:16 Insulin Regular, Human 100 Units/1 Ml SUB-Q 5 units ACHS KARYN Administration Melatonin 5 mg 02/16/21 17:53 02/17/21 21:39 Melatonin 5 Mg Tab PO 5 mg QHS PRN Administration Sleep Metoprolol Tartrate 50 mg 02/19/21 22:00 02/22/21 09:15 Metoprolol Tartrate 50 Mg Tab PO 50 mg BID KARYN Administration Morphine Sulfate 2 mg 02/14/21 21:54 Morphine 2 Mg/1 Ml Inj IV Q4H PRN Pain, Moderate (4-6) Ondansetron HCl 4 mg 02/14/21 21:54 02/17/21 21:38 Ondansetron 4 Mg/2 Ml Inj IV 4 mg Q8H PRN Administration Nausea And Vomiting Simple Syrup 15 ml 02/17/21 12:34 Simple Syrup 15 Ml FEEDTUBE PRN PRN Hypoglycemia Simple Syrup 30 ml 02/17/21 12:34 Simple Syrup 15 Ml FEEDTUBE PRN PRN Hypoglycemia Sodium Bicarbonate 325 mg 02/17/21 12:34 Sodium Bicarbonate 325 Mg Tab FEEDTUBE PRN PRN For Clogged Feeding Tube Sodium Chloride 10 ml 02/14/21 22:00 02/22/21 09:17 Sodium Chloride 0.9% 10 Ml Flush Syringe IV 10 ml BID KARYN Administration Sodium Chloride 10 ml 02/14/21 21:54 Sodium Chloride 0.9% 10 Ml Flush Syringe IV PRN PRN LINE FLUSH Nutrition/Malnutrition Assess - Dietary Evaluation Nutrition/Malnutrition Findings: Nutrition Notes Start: 02/15/21 12:03 Freq: Status: Active Protocol: Document 02/20/21 16:12 GB (Rec: 02/20/21 16:21 GB [id number]) Nutrition Notes Initial or Follow up Reassessment Current Diagnosis Diabetes,Hypertension, Respiratory Failure,Stroke Other Pertinent Diagnosis hyperglycemia, STEMI Current Diet Mechanical soft, thni liquids Labs/Tests 02/20: Na 151, BUN 23, glucose 140, ferritin 915.3 Pertinent Medications ferrous sulfate, NaCl/Hep, NaCl, remdesivir Height 5 ft 4 in Weight 104.3 kg [place] Body Weight (kg) 54.54 BMI 39.4 Weight change and time frame no significant changes at this time Weight Status Obese Subjective/Other Information per MD ntoes 02/20: NG d/c 02/19 . FREIGHT RATE CLERK eval advanced diet texture to mechanical soft thin liquids. PO recorded 25% x 1 meal. Adding glucerna BID for additional calories/ protein while po intake recovers. Percent of energy/protein needs met: PO intake of meals and supplement 50% or greater will meet 75% or greater of estimated energy needs. Burn Absent Trauma Absent GI Symptoms None Difficulty In Swallowing Food Allergy No Current % PO Poor (25-49%) Minimum of two criteria No #2 Nutrition Diagnosis Inadequate energy intake Etiology DM, collapse As Evidenced by Signs and Symptoms Recent advancement to PO intake with mechanically altered texture diet, NG d/c , need for nutritional supplement beverage to meet estimated energy needs. #1 Nutrition Diagnosis Other: (Specify in comment below) Comments: Comprimised PO intake, dependency for enteral feed to meet nutrition needs Etiology DM, collapse, As Evidenced by Signs and Symptoms not able to eat PO at this time, MD order for TF Diagnosis Progress(for reassessment Resolved documentation) Is patient on ventilator? No Is Patient Ambulatory and/or Out of Bed Yes REE-([place]-ambulatory/OOB) [ 2103.400 NUTR.[id number]] Kcal/Kg value to use for calculation 17 Approximate Energy Requirements Using 1773 kcal/Kg Calculation Used for Recommendations Kcal/kg Additional Notes Protein: 0.7-1 g/kg @ 104k-104g Fluids: 1 ml/kcal or per MD Nutrition Intervention Change Diet Order: Continue with current diet advancing texture per FREIGHT RATE CLERK Nutrition Support: n/a Add Supplement/Snack (indicate name/kcal glucerna BID /protein ) Provides kCal: 440 Provides Protein (gm) 20 Goal #1 PO intake of meals to improve to 50% or greater during LOS Goal #2 weight to maintain within -3% current weight for LOS Goal #3 PO intake of nutritional supplement beverage to be 50% or greater BID daily during LOS Follow-Up By: 02/27/21 Additional Comments Follow PO intake of meals/ supplements
--- NOTE | 2021-02-22 11:32 | Progress Note ---
Assessment and Plan Cultures: 02/16/2021 blood culture: no growth SARS CoV2 PCR positive Assessment: 55-year-old female with history of diabetes mellitus, admitted on 02/14/2021 secondary to left-sided weakness, left facial droop and dysarthria for unknown amount of time likely 12-24h with a previous 2-week history of flulike symptoms: #Acute sepsis: likely secondary to bilateral pneumonia +/- STEMI +/- CVA. #Bilateral pneumonia: secondary to COVID. CXR with bilateral pneumonia. Initial labs: CRP 21.5, ferritin 837, LDH 766, D-dimer > 10K. Received Actemra on 02/17/2021. Procal moderately elevated, completed ceftriaxone and azithromycin course, completed remdesivir. On steroids. #Acute hypoxemic respiratory failure: requiring BiPAP/HFNC #Elevated LFTs: from sepsis/COVID #ADAM: resolved. #STEMI: s/p heart cath with stent placement in the RCA. #Possible CVA: Patient was out of window of TPA per neuro. Recommendations: -Received Actemra on 02/17/2021 -completed remdesivir -continue dexamethasone IV/PO daily for 10 days -guarded prognosis Simin Engel MD, FACP [facility] O: [phone] F: [phone] Subjective Date of service: 02/22/21 Principal diagnosis: CVA with left side weakness ,elevated inflammatory markers Interval history: Afebrile. Remains on high flow nasal cannula. Objective - Exam Narrative Exam: Physical Exam (reviewed in chart to minimize risk of transmission) Constitutional: deferred Head, Ears, Nose: deferred Eyes: deferred Neck: deferred Oral: deferred Cardiovascular: deferred Respiratory: deferred GI: deferred Musculoskeletal: deferred Skin: deferred Hem/Lymphatic: deferred Psych: deferred Neurological: deferred - Constitutional Vitals: Vital Signs Temp Pulse Resp BP Pulse Ox 98.6 F 83 18 126/77 94 02/22/21 05:59 02/22/21 06:57 02/22/21 06:57 02/22/21 05:58 02/22/21 08:44 Temperature -Last 24 Hours Temperature 98.6 F Temperature 98.4 F Temperature 98.4 F Temperature 98.4 F - Labs CBC & Chem 7: 02/21/21 04:45 02/22/21 06:50 Labs: Abnormal lab results 02/21/21 02/21/21 02/21/21 Range/Units 11:42 16:30 21:56 Potassium (3.6-5.0) mmol/L Carbon Dioxide (22-30) mmol/L BUN (7-17) mg/dL Glucose (65-100) mg/dL POC Glucose 206 H 235 H 205 H (70-105) mg/dL 02/22/21 02/22/21 02/22/21 Range/Units 05:51 06:50 07:55 Potassium 3.5 L (3.6-5.0) mmol/L Carbon Dioxide 31 H (22-30) mmol/L BUN 19 H (7-17) mg/dL Glucose 118 H (65-100) mg/dL POC Glucose 121 H 148 H (70-105) mg/dL
--- NOTE | 2021-02-22 13:04 | Progress Note ---
Assessment and Plan 55 y/o female with STEMI and acute respiratory failure 02/22/21: CXR is unchanged. EF is 55%. Will speak with RT about the acute change from 50-100%. Hold on lasix today given K of 3.5 but would benefit from again. Guarded prognosis. 02/21/21: Will order CXR for today for review. Follow up echo results. hold on lasix until those results are back. Wean FiO2 for sats >88%. Will speak with RT about more detailed documentation to explain significant increases in oxygen requirement. 02/20/21: Wean for sats >88%. Steroids and Remdesivir. Will hold on lasix today although it did not make sodium worse so could consider repeat dosing. Guarded prognosis. 02/19/21: continue to wean for sats >88%. Steroids and remdesivir. Feel patient is stable enough to go to COVID floor or at least Step down. Needs more free water. Patient is taking po so can be given this way. Did give lasix x1 today to help with volume given I/O record. May make Na worse. 02/18/21: WEan FiO2 and flow for sats >88%. Continue therapy for COVID. Guideline therapy for CAD. Guarded prognosis. 02/17/21: Suspect family knew patient was COVID positive and did not tell us. 48 hours now behind on starting therapy, maybe longer. Agree with steroids. Will ask ID about Remdesivir and Actemra. Monitor fluids, BNP was still elevated despite normal EF. Wean FiO2 as tolerated and need to have patient manually prone. Follow up neurology recs as well as ID. Guarded prognosis. 02/16/21: Responded well to diuresis, will give more lasix today. Going for MRI today. Spoke with downstairs who is upset about lack of visitation. he also states that he has a neurologist who is willing to accept the patient to [facility] but he refused to give me the name of the physician. Will continue supportive measures. 1. Pulm- CXR appears to be more consistent with pulmonary edema and BNP is 4k. Stopped IVF's. Attempted to take of bipap but desats on cannula. Awake and tachypnic. Will give lasix 20mg IV x1 now to see if this helps with oxygen requirement. DO not feel this is infection. 2. Cards-STemi, goal directed therapy and follow up echo, done but not read yet. 3. Endo-elevated blood sugar likely related to acute mI, although patient could have underlying disease given age and weight, suggest checking A1C. 4. Guarded prognosis Subjective Date of service: 02/22/21 Principal diagnosis: CVA with left side weakness ,elevated inflammatory markers Interval history: Oxygen is now back up to 100%. Was 50% earlier this am. No documentation as to why this happened. Lowest sat I can find in the chart is 88 around 0600 Objective Vital Signs - 12hr 02/22/21 02/22/21 02/22/21 03:27 05:58 05:59 Temperature 98.6 F Pulse Rate 86 Respiratory 20 Rate Blood Pressure 126/77 O2 Sat by Pulse 97 88 89 Oximetry 02/22/21 02/22/21 02/22/21 06:57 08:44 11:49 Temperature 98.4 F Pulse Rate 83 80 Respiratory 18 18 Rate Blood Pressure 111/71 O2 Sat by Pulse 94 94 94 Oximetry Gastrointestinal: normoactive bowel sounds Integumentary: normal CBC and BMP: 02/21/21 04:45 02/22/21 06:50 ABG, PT/INR, D-dimer: PT/INR, D-dimer PT 15.8 Sec. (12.2-14.9) H 02/15/21 18:20 INR 1.20 (0.87-1.13) H 02/15/21 18:20 D-Dimer 4275.78 ng/mlDDU (0-234) H 02/20/21 06:39 Abnormal lab findings: Abnormal Labs 02/14/21 02/14/21 02/14/21 20:21 20:21 20:21 WBC 15.6 H RBC 5.55 H Hct 43.3 H MCV 78 L MCH 26 L MCHC RDW 16.3 H Lymph % (Auto) Lymph # (Auto) Seg Neutrophils % Seg Neuts % (Manual) 96.0 H Lymphocytes % (Manual) 3.0 L Seg Neutrophils # Seg Neutrophils # Man 15.0 H Lymphocytes # (Manual) 0.5 L PT 16.7 H INR 1.30 H D-Dimer Heparin Anti-Xa Level Sodium 131 L Potassium 5.1 H Chloride 88.4 L Carbon Dioxide 20 L BUN 34 H Creatinine 1.5 H Glucose 574 H* POC Glucose Magnesium Ferritin AST Lactate Dehydrogenase Troponin T 0.882 H* C-Reactive Protein NT-Pro-B Natriuret Pep Albumin Triglycerides 292 H HDL Cholesterol 23 L Coronavirus (PCR) 02/14/21 02/14/21 02/14/21 20:21 23:11 23:20 WBC RBC Hct MCV MCH MCHC RDW Lymph % (Auto) Lymph # (Auto) Seg Neutrophils % Seg Neuts % (Manual) Lymphocytes % (Manual) Seg Neutrophils # Seg Neutrophils # Man Lymphocytes # (Manual) PT INR D-Dimer Heparin Anti-Xa Level Sodium Potassium Chloride Carbon Dioxide BUN Creatinine Glucose POC Glucose 562 H 422 H Magnesium Ferritin AST Lactate Dehydrogenase Troponin T 0.892 H* C-Reactive Protein NT-Pro-B Natriuret Pep Albumin Triglycerides HDL Cholesterol Coronavirus (PCR) 02/15/21 02/15/21 02/15/21 03:55 03:55 05:29 WBC RBC 5.17 H Hct MCV 77 L MCH 26 L MCHC RDW 15.8 H Lymph % (Auto) 4.9 L Lymph # (Auto) 0.5 L Seg Neutrophils % 89.2 H Seg Neuts % (Manual) Lymphocytes % (Manual) Seg Neutrophils # 8.4 H Seg Neutrophils # Man Lymphocytes # (Manual) PT INR D-Dimer Heparin Anti-Xa Level Sodium 136 L Potassium Chloride 97.3 L Carbon Dioxide 18 L BUN 33 H Creatinine Glucose 402 H POC Glucose 345 H Magnesium Ferritin AST 46 H Lactate Dehydrogenase Troponin T 0.992 H* C-Reactive Protein NT-Pro-B Natriuret Pep Albumin 3.0 L Triglycerides HDL Cholesterol Coronavirus (PCR) 02/15/21 02/15/21 02/15/21 08:38 08:38 08:38 WBC RBC Hct MCV 75 L MCH 26 L MCHC 35 H RDW 16.2 H Lymph % (Auto) Lymph # (Auto) Seg Neutrophils % Seg Neuts % (Manual) Lymphocytes % (Manual) Seg Neutrophils # Seg Neutrophils # Man Lymphocytes # (Manual) PT INR D-Dimer Heparin Anti-Xa Level Sodium 135 L Potassium Chloride Carbon Dioxide 19 L BUN 31 H Creatinine Glucose 360 H POC Glucose Magnesium 2.50 H Ferritin AST Lactate Dehydrogenase Troponin T C-Reactive Protein NT-Pro-B Natriuret Pep 4086 H Albumin Triglycerides HDL Cholesterol Coronavirus (PCR) 09/02/15/21 02/15/21 11:15 17:28 18:20 WBC RBC Hct MCV MCH MCHC RDW Lymph % (Auto) Lymph # (Auto) Seg Neutrophils % Seg Neuts % (Manual) Lymphocytes % (Manual) Seg Neutrophils # Seg Neutrophils # Man Lymphocytes # (Manual) PT INR D-Dimer > 51689 H Heparin Anti-Xa Level Sodium Potassium Chloride Carbon Dioxide BUN Creatinine Glucose POC Glucose 317 H 311 H Magnesium Ferritin AST Lactate Dehydrogenase Troponin T C-Reactive Protein NT-Pro-B Natriuret Pep Albumin Triglycerides HDL Cholesterol Coronavirus (PCR) 02/15/21 02/15/21 02/15/21 18:20 18:20 18:20 WBC RBC Hct MCV MCH MCHC RDW Lymph % (Auto) Lymph # (Auto) Seg Neutrophils % Seg Neuts % (Manual) Lymphocytes % (Manual) Seg Neutrophils # Seg Neutrophils # Man Lymphocytes # (Manual) PT 15.8 H INR 1.20 H D-Dimer Heparin Anti-Xa Level Sodium Potassium Chloride Carbon Dioxide BUN Creatinine Glucose POC Glucose Magnesium Ferritin 837.7 H AST Lactate Dehydrogenase 766 H Troponin T C-Reactive Protein 21.50 H NT-Pro-B Natriuret Pep Albumin Triglycerides HDL Cholesterol Coronavirus (PCR) 02/15/21 02/16/21 02/16/21 23:45 02:44 02:44 WBC RBC Hct MCV 77 L MCH 26 L MCHC RDW 16.0 H Lymph % (Auto) Lymph # (Auto) Seg Neutrophils % Seg Neuts % (Manual) Lymphocytes % (Manual) Seg Neutrophils # Seg Neutrophils # Man Lymphocytes # (Manual) PT INR D-Dimer Heparin Anti-Xa Level Sodium Potassium Chloride Carbon Dioxide BUN 27 H Creatinine Glucose 269 H POC Glucose 203 H Magnesium Ferritin AST Lactate Dehydrogenase Troponin T C-Reactive Protein NT-Pro-B Natriuret Pep Albumin Triglycerides HDL Cholesterol Coronavirus (PCR) 02/16/21 02/16/21 02/16/21 05:47 11:50 15:00 WBC RBC Hct MCV MCH MCHC RDW Lymph % (Auto) Lymph # (Auto) Seg Neutrophils % Seg Neuts % (Manual) Lymphocytes % (Manual) Seg Neutrophils # Seg Neutrophils # Man Lymphocytes # (Manual) PT INR D-Dimer Heparin Anti-Xa Level < 0.10 L Sodium Potassium Chloride Carbon Dioxide BUN Creatinine Glucose POC Glucose 275 H 251 H Magnesium Ferritin AST Lactate Dehydrogenase Troponin T C-Reactive Protein NT-Pro-B Natriuret Pep Albumin Triglycerides HDL Cholesterol Coronavirus (PCR) 02/16/21 02/16/21 02/16/21 18:23 23:30 23:57 WBC RBC Hct MCV MCH MCHC RDW Lymph % (Auto) Lymph # (Auto) Seg Neutrophils % Seg Neuts % (Manual) Lymphocytes % (Manual) Seg Neutrophils # Seg Neutrophils # Man Lymphocytes # (Manual) PT INR D-Dimer Heparin Anti-Xa Level < 0.10 L Sodium Potassium Chloride Carbon Dioxide BUN Creatinine Glucose POC Glucose 237 H 249 H Magnesium Ferritin AST Lactate Dehydrogenase Troponin T C-Reactive Protein NT-Pro-B Natriuret Pep Albumin Triglycerides HDL Cholesterol Coronavirus (PCR) 02/16/21 02/17/21 02/17/21 Unknown 05:25 06:18 WBC RBC Hct MCV MCH MCHC RDW Lymph % (Auto) Lymph # (Auto) Seg Neutrophils % Seg Neuts % (Manual) Lymphocytes % (Manual) Seg Neutrophils # Seg Neutrophils # Man Lymphocytes # (Manual) PT INR D-Dimer Heparin Anti-Xa Level Sodium Potassium Chloride Carbon Dioxide BUN Creatinine Glucose POC Glucose 238 H 229 H Magnesium Ferritin AST Lactate Dehydrogenase Troponin T C-Reactive Protein NT-Pro-B Natriuret Pep Albumin Triglycerides HDL Cholesterol Coronavirus (PCR) Positive A 02/17/21 02/17/21 02/17/21 11:35 13:30 13:30 WBC RBC Hct MCV MCH MCHC RDW Lymph % (Auto) Lymph # (Auto) Seg Neutrophils % Seg Neuts % (Manual) Lymphocytes % (Manual) Seg Neutrophils # Seg Neutrophils # Man Lymphocytes # (Manual) PT INR D-Dimer Heparin Anti-Xa Level 0.29 L Sodium 146 H D Potassium Chloride 107.3 H Carbon Dioxide BUN 29 H Creatinine Glucose 334 H POC Glucose 279 H Magnesium Ferritin AST Lactate Dehydrogenase Troponin T C-Reactive Protein NT-Pro-B Natriuret Pep Albumin Triglycerides HDL Cholesterol Coronavirus (PCR) 02/17/21 02/17/21 02/17/21 13:30 13:30 16:42 WBC RBC Hct MCV 77 L MCH 25 L MCHC RDW 16.1 H Lymph % (Auto) Lymph # (Auto) Seg Neutrophils % Seg Neuts % (Manual) Lymphocytes % (Manual) Seg Neutrophils # Seg Neutrophils # Man Lymphocytes # (Manual) PT INR D-Dimer Heparin Anti-Xa Level Sodium 146 H Potassium Chloride Carbon Dioxide BUN 29 H Creatinine Glucose 340 H POC Glucose 291 H Magnesium Ferritin AST Lactate Dehydrogenase Troponin T C-Reactive Protein NT-Pro-B Natriuret Pep Albumin 2.7 L Triglycerides HDL Cholesterol Coronavirus (PCR) 02/17/21 02/18/21 02/18/21 21:43 04:40 04:40 WBC RBC Hct MCV 78 L MCH 26 L MCHC RDW 16.3 H Lymph % (Auto) Lymph # (Auto) Seg Neutrophils % Seg Neuts % (Manual) Lymphocytes % (Manual) Seg Neutrophils # Seg Neutrophils # Man Lymphocytes # (Manual) PT INR D-Dimer Heparin Anti-Xa Level Sodium 149 H Potassium Chloride 108.9 H Carbon Dioxide BUN 34 H Creatinine Glucose 318 H POC Glucose 288 H Magnesium Ferritin AST Lactate Dehydrogenase Troponin T C-Reactive Protein 14.50 H NT-Pro-B Natriuret Pep Albumin 3.0 L Triglycerides HDL Cholesterol Coronavirus (PCR) 02/18/21 02/18/21 02/18/21 04:40 08:02 11:30 WBC RBC Hct MCV MCH MCHC RDW Lymph % (Auto) Lymph # (Auto) Seg Neutrophils % Seg Neuts % (Manual) Lymphocytes % (Manual) Seg Neutrophils # Seg Neutrophils # Man Lymphocytes # (Manual) PT INR D-Dimer 3846.94 H Heparin Anti-Xa Level Sodium Potassium Chloride Carbon Dioxide BUN Creatinine Glucose POC Glucose 263 H 309 H Magnesium Ferritin AST Lactate Dehydrogenase Troponin T C-Reactive Protein NT-Pro-B Natriuret Pep Albumin Triglycerides HDL Cholesterol Coronavirus (PCR) 02/18/21 02/18/21 02/18/21 12:29 21:56 22:34 WBC RBC Hct MCV MCH MCHC RDW Lymph % (Auto) Lymph # (Auto) Seg Neutrophils % Seg Neuts % (Manual) Lymphocytes % (Manual) Seg Neutrophils # Seg Neutrophils # Man Lymphocytes # (Manual) PT INR D-Dimer Heparin Anti-Xa Level 0.29 L Sodium Potassium Chloride Carbon Dioxide BUN Creatinine Glucose POC Glucose 313 H 284 H Magnesium Ferritin AST Lactate Dehydrogenase Troponin T C-Reactive Protein NT-Pro-B Natriuret Pep Albumin Triglycerides HDL Cholesterol Coronavirus (PCR) 02/18/21 02/19/21 02/19/21 23:52 06:11 07:54 WBC RBC Hct MCV MCH MCHC RDW Lymph % (Auto) Lymph # (Auto) Seg Neutrophils % Seg Neuts % (Manual) Lymphocytes % (Manual) Seg Neutrophils # Seg Neutrophils # Man Lymphocytes # (Manual) PT INR D-Dimer Heparin Anti-Xa Level Sodium 151 H Potassium Chloride 110.6 H Carbon Dioxide BUN 28 H Creatinine Glucose 191 H POC Glucose 272 H 155 H Magnesium Ferritin AST Lactate Dehydrogenase Troponin T C-Reactive Protein NT-Pro-B Natriuret Pep Albumin 3.0 L Triglycerides HDL Cholesterol Coronavirus (PCR) 02/19/21 02/19/21 02/19/21 12:37 16:29 21:28 WBC RBC Hct MCV MCH MCHC RDW Lymph % (Auto) Lymph # (Auto) Seg Neutrophils % Seg Neuts % (Manual) Lymphocytes % (Manual) Seg Neutrophils # Seg Neutrophils # Man Lymphocytes # (Manual) PT INR D-Dimer Heparin Anti-Xa Level Sodium Potassium Chloride Carbon Dioxide BUN Creatinine Glucose POC Glucose 233 H 268 H 298 H Magnesium Ferritin AST Lactate Dehydrogenase Troponin T C-Reactive Protein NT-Pro-B Natriuret Pep Albumin Triglycerides HDL Cholesterol Coronavirus (PCR) 02/19/21 02/20/21 02/20/21 23:34 06:39 06:39 WBC RBC 5.08 H Hct MCV 77 L MCH 25 L MCHC RDW 16.0 H Lymph % (Auto) Lymph # (Auto) Seg Neutrophils % Seg Neuts % (Manual) 88.0 H Lymphocytes % (Manual) 4.0 L Seg Neutrophils # Seg Neutrophils # Man Lymphocytes # (Manual) 0.2 L PT INR D-Dimer 4275.78 H Heparin Anti-Xa Level 0.26 L Sodium Potassium Chloride Carbon Dioxide BUN Creatinine Glucose POC Glucose Magnesium Ferritin AST Lactate Dehydrogenase Troponin T C-Reactive Protein NT-Pro-B Natriuret Pep Albumin Triglycerides HDL Cholesterol Coronavirus (PCR) 02/20/21 02/20/21 02/20/21 06:39 06:39 08:45 WBC RBC Hct MCV MCH MCHC RDW Lymph % (Auto) Lymph # (Auto) Seg Neutrophils % Seg Neuts % (Manual) Lymphocytes % (Manual) Seg Neutrophils # Seg Neutrophils # Man Lymphocytes # (Manual) PT INR D-Dimer Heparin Anti-Xa Level Sodium 152 H 151 H Potassium Chloride 112.0 H 111.4 H Carbon Dioxide 31 H BUN 23 H 23 H Creatinine Glucose 119 H 140 H POC Glucose Magnesium Ferritin 915.5 H AST Lactate Dehydrogenase 645 H Troponin T C-Reactive Protein 3.60 H NT-Pro-B Natriuret Pep Albumin 3.1 L Triglycerides HDL Cholesterol Coronavirus (PCR) 02/20/21 02/20/21 02/20/21 11:57 18:01 22:20 WBC RBC Hct MCV MCH MCHC RDW Lymph % (Auto) Lymph # (Auto) Seg Neutrophils % Seg Neuts % (Manual) Lymphocytes % (Manual) Seg Neutrophils # Seg Neutrophils # Man Lymphocytes # (Manual) PT INR D-Dimer Heparin Anti-Xa Level Sodium Potassium Chloride Carbon Dioxide BUN Creatinine Glucose POC Glucose 217 H 337 H 379 H Magnesium Ferritin AST Lactate Dehydrogenase Troponin T C-Reactive Protein NT-Pro-B Natriuret Pep Albumin Triglycerides HDL Cholesterol Coronavirus (PCR) 02/21/21 02/21/21 02/21/21 07:43 11:42 16:30 WBC RBC Hct MCV MCH MCHC RDW Lymph % (Auto) Lymph # (Auto) Seg Neutrophils % Seg Neuts % (Manual) Lymphocytes % (Manual) Seg Neutrophils # Seg Neutrophils # Man Lymphocytes # (Manual) PT INR D-Dimer Heparin Anti-Xa Level Sodium Potassium Chloride Carbon Dioxide BUN Creatinine Glucose POC Glucose 152 H 206 H 235 H Magnesium Ferritin AST Lactate Dehydrogenase Troponin T C-Reactive Protein NT-Pro-B Natriuret Pep Albumin Triglycerides HDL Cholesterol Coronavirus (PCR) 02/21/21 02/22/21 02/22/21 21:56 05:51 06:50 WBC RBC Hct MCV MCH MCHC RDW Lymph % (Auto) Lymph # (Auto) Seg Neutrophils % Seg Neuts % (Manual) Lymphocytes % (Manual) Seg Neutrophils # Seg Neutrophils # Man Lymphocytes # (Manual) PT INR D-Dimer Heparin Anti-Xa Level Sodium Potassium 3.5 L Chloride Carbon Dioxide 31 H BUN 19 H Creatinine Glucose 118 H POC Glucose 205 H 121 H Magnesium Ferritin AST Lactate Dehydrogenase Troponin T C-Reactive Protein NT-Pro-B Natriuret Pep Albumin Triglycerides HDL Cholesterol Coronavirus (PCR) 02/22/21 02/22/21 07:55 11:47 WBC RBC Hct MCV MCH MCHC RDW Lymph % (Auto) Lymph # (Auto) Seg Neutrophils % Seg Neuts % (Manual) Lymphocytes % (Manual) Seg Neutrophils # Seg Neutrophils # Man Lymphocytes # (Manual) PT INR D-Dimer Heparin Anti-Xa Level Sodium Potassium Chloride Carbon Dioxide BUN Creatinine Glucose POC Glucose 148 H 216 H Magnesium Ferritin AST Lactate Dehydrogenase Troponin T C-Reactive Protein NT-Pro-B Natriuret Pep Albumin Triglycerides HDL Cholesterol Coronavirus (PCR)
[2021-02-22 15:43] LABS: Hematocrit 38.3 % (30.3-42.9); Mean Corpuscular HGB Conc 34 % (30-34); Mean Corpuscular Volume 76 fl (79-97); Platelet Count 233 K/mm3 (140-440); Red Blood Count 5.02 M/mm3 (3.65-5.03); Red Cell Distribution Width 15.2 % (13.2-15.2)
[2021-02-22 15:59] LABS: INR 1.03 (0.87-1.13)
[2021-02-22] MEDS: APIXABAN 2.5 MG TAB PO SCH (22:13)
[2021-02-22] MEDS: INSULIN GLARGINE 100 UNITS/ML SUB-Q SCH (22:55)
[2021-02-23 06:19] LABS: Hematocrit 39.4 % (30.3-42.9); Hemoglobin 13.3 gm/dl (10.1-14.3)
[2021-02-23] MEDS: INSULIN LISPRO 100 UNIT/ML SUB-Q SCH ×4 (08:17→21:28)
[2021-02-23] MEDS: INSULIN REGULAR, HUMAN 100 UNITS/1 ML SUB-Q SCH ×4 (08:29→21:28)
--- NOTE | 2021-02-23 09:56 | Progress Note ---
Assessment and Plan Assessment and plan: 55-year-old female with PmHx of HTN, uterine fibroids and ex-smoker admitted for acute right MCA CVA and STEMI s/p PCI in RCA, now with acute respiratory distress requiring continuous Bipap. Hospital Course to date: 02/16/21- Patient AAOX4, with slurred speech and Lt. sided weakness. MRI/MRA brain pending. Remains on continuous Bipap, failed optiflow trial overnight. Bilateral infiltrate noted on today CXR additional lasix was adminstered to optimize Respiratory status, However was D/C due to marginal BP concern for Hypoperfusion. Will reassess in the Am. Plan to wean off Bipap as tolerated. Patient has been NPO due to continuous Bipap. When patient is off bipap nurse to complete bedside swallow screen, if fail will place NGT so pateint can received PO meds. Low grade temp today, TMAX 101.2 in last 24hrs, Bcult pending, on IV abx, ceftriaxone and azithromycin. COVID swab result pending, ID on the case rec to start dexamethasone 6 mg IV/p.o. daily for 10 days. 02/17/21- COVID PCR can back possible, patient was already on Rocephin and azithromaci, added Remdesevir per protocol, and IV decadron was initiated. Patient was wean to heated high flow, currently on 70% FiO2 and 40L. Wean O2 supplement as tolerated for a SPO2b goal above 88%. Persistent hyperglycemia, lantus increased to 10 units. Speech eval completed, patient pass swallow, order placed for pureed diet with thin liquid. Will continue to monitor, Heparing gtt per protocol, Am labs ordered. 02/18/21-blood sugars this morning over 300. Ordered 10 units of IV insulin once. Added 5 units scheduled insulin in addition to sliding scale insulin. Diet change to diabetic diet. 02/19/21: Transfer to floor. NG tube d/c. 02/20/21: Will get speech therapy to re-evaluate patient to see if patient can be escalated from pureed diet. Cardiology recommendations noted, BB is increased. Continue supportive management for covid 19 pneumonia. HFNC currently at 35 l/min/fio2=60%. Ok with sats > 88%. Attempted to call Durga but voicemail was to another person in chart. Will attempt to find another number to update . 02/21/2021. Patient currently with 35 L of oxygen with an FiO2 of 70%. Continue statin therapy, beta blockers, and DAPT with plavix and aspirin per cardiology recommendation. Continue intravenous heparin, ultimately will be transitioned to long-term warfarin therapy or a NOAC. 02/22/2021. Patient's oxygen requirement has been decreased to 30 L/min via HFNC with FiO2 50%. Continue per ID and pulmonary recommendations. Patient received Actemra 02/17/2021. Complete remdesivir x5 days. Complete dexamethasone IV for 10 days. Cardiology also recommends continued statin therapy, beta-blockers and DAPT with Plavix and aspirin. Continue IV heparin and transition to long-term warfarin or NOAC per cardiology 02/23/2021. Chest x-ray from yesterday is unchanged. Patient currently on high flow nasal cannula 30 L/min with FiO2 35%. Continue per ID and pulmonary recommendations. Patient received Actemra 02/17/2021. Complete remdesivir x5 days. Complete dexamethasone IV for 10 days. Cardiology also recommends continued statin therapy, beta-blockers and DAPT with Plavix and aspirin. Continue IV heparin and transition to long-term warfarin or NOAC per cardiology #Neuro: Acute right MCA CVA - 02/13/21- CT head shows microvascular angiopathy, decreased attenuation along the posterior right frontal subcortical region, no acute intracranial hemorrhage - 02/13/2021- CTA head shows decreased attenuation along the posterior right frontal lobe, no CT evidence of significant stenosis involving proximal cerebral branches particularly the proximal right MCA - 02/13/21- CTA neck shows mild atherosclerotic calcification involving the proximal internal carotid arteries bilaterally without significant stenosis - MRI brain and MRA brain and neck pending - Per EMR intial NIH was 9 - Not candidate for any intervention- out of the time window - Aspirin, Plavix, & Lipitor ordered. - Prevent hypoperfusion, close monitor of blood pressure - Seizure precautions - PT/OT/ST eval - Neurology consulted, appreciate recommendations #CV: STEMI s/p PCI in RCA, h/o HTN #Rt. Ventricle Thrombus - 02/13/2021 Echo: EF 55%, mild concentric left ventricular Hypertrophy,suspected thrombus in right ventricle - Heparin protocol initiated, ok to transition to warfarin or NOAC on d/c - On Statin, beta-silas, Plavix and aspirin - 02/16 X1 dose rectal ASA- due to NPO status - SBP in the 110/120s. Prevent hypoperfusion, close monitoring of blood pressure- Goal SBP<160, Keep MAP>60 - proBNP:4086. 02/16Additional lasix today to optimize Respiratory status, H owever was D/C due to marginal BP concern for Hypoperfusion. Will reassess in the Am - Strict I&O #Respiratory: Acute hypoxic respiratory possibly due to COVID; COVID PUI - On heated high flow at 700% FiO2, 40L - Bilateral infiltrate appreciate from 02/16 CXR - 02/15 Elevated inflam. makers: [id number], Ferrintin 837.7, LDH 766, CRP 21.50 - proBNP:4086. Additional lasix today to optimize Respiratory status, However was D/C due to marginal BP concern for Hypoperfusion. Will reassess in the Am - COVID swab pending - Continue to monitor SPO2 wean Bipap off to HFNC as tolerated for SPO2 above 88% - F/U chest Xray in the am - AM labs ordered - pulmo/CCM consulted, appreciate recommendations #GI: Dysphagia - Speech eval completed, pass swallow - Pureed diet with thin liquid order #: Acute kidney injury - improving - Initial cr. 1.5. Creatinine downtrending 1.1 today - No longer on IVFluid due to [place] infiltrate/fluif overload on CXR - proBNP:4086. Additional lasix today to optimize Respiratory status, However was D/C due to marginal BP concern for Hypoperfusion. Will reassess in the Am - Continue to monitor renal function. Am labs ordered - Consider nephrology consult if kidney function worsen - Strict I&Os, purewick in place #ID: acute sepsis 2/2 bilateral PNA, COVID PNA - 02/16 Bilateral infiltrate appreciate - TMAX 100.1, no leukocytosis WBC 8.1 - Elevated inflam. makers: [id number], Ferrintin 837.7, LDH 766, CRP 21.50 - 02/16 COVID positive, 02/16 BcultX2 pending - Procal pending - Currently on ceftriaxone and azithromycin X5days - 02/17 added remdesevir per protocol - 02/17 IV decadron [id number] - Contact/droplet precautions - AM labs ordered, F/U CXR in the am #Heme: Anemia - Hgb 12.3, MCV 77, MCH 26 - On heparin gtt per protocol, ASA and plavix - Monitor for s/s of bleeding - Bilateral SCDs for VTE proph - Monitor H&H and plts. AM labs ordered #Endo: Hyperglycemia - Hemoglobin A1c pending - Persistent hyperglycemia high dose SSI - Lantus increased to 10 units SUBQ History Interval history: No new issues overnight Hospitalist Physical - Constitutional Vitals: Temp Pulse Resp BP Pulse Ox 98.7 F 85 20 137/86 90 02/23/21 05:34 02/23/21 05:34 02/23/21 05:34 02/23/21 05:34 02/23/21 08:13 General appearance: Present: mild distress, well-nourished - EENT Eyes: Present: PERRL, EOM intact ENT: hearing intact, clear oral mucosa, dentition normal - Neck Neck: Present: supple, normal ROM - Respiratory Respiratory effort: normal Respiratory: bilateral: CTA - Cardiovascular Rhythm: regular Heart Sounds: Present: S1 & S2. Absent: gallop, rub - Extremities Extremities: no ischemia, No edema, Full ROM - Abdominal General gastrointestinal: soft, non-tender, non-distended, normal bowel sounds - Integumentary Integumentary: Present: clear, warm, dry - Neurologic Neurologic: CNII-XII intact, moves all extremities HEART Score - HEART Score Troponin: Troponin T 0.992 ng/mL (0.00-0.029) H* 02/15/21 03:55 Results - Labs CBC & Chem 7: 02/23/21 05:50 02/22/21 15:12 Labs: Laboratory Last Values WBC 6.5 K/mm3 (4.5-11.0) 02/22/21 15:12 RBC 5.02 M/mm3 (3.65-5.03) 02/22/21 15:12 Hgb 13.3 gm/dl (10.1-14.3) 02/23/21 05:50 Hct 39.4 % (30.3-42.9) 02/23/21 05:50 MCV 76 fl (79-97) L 02/22/21 15:12 MCH 26 pg (28-32) L 02/22/21 15:12 MCHC 34 % (30-34) 02/22/21 15:12 RDW 15.2 % (13.2-15.2) 02/22/21 15:12 Plt Count 218 K/mm3 (140-440) 02/23/21 05:50 Lymph % (Auto) 4.9 % (13.4-35.0) L 02/15/21 03:55 [place]ok % (Auto) 5.3 % (0.0-7.3) 02/15/21 03:55 Eos % (Auto) 0.5 % (0.0-4.3) 02/15/21 03:55 Baso % (Auto) 0.1 % (0.0-1.8) 02/15/21 03:55 Lymph # (Auto) 0.5 K/mm3 (1.2-5.4) L 02/15/21 03:55 [place] # (Auto) 0.5 K/mm3 (0.0-0.8) 02/15/21 03:55 Eos # (Auto) 0.1 K/mm3 (0.0-0.4) 02/15/21 03:55 Baso # (Auto) 0.0 K/mm3 (0.0-0.1) 02/15/21 03:55 Add Manual Diff Complete 02/20/21 06:39 Total Counted 100 02/20/21 06:39 Seg Neutrophils % 89.2 % (40.0-70.0) H 02/15/21 03:55 Seg Neuts % (Manual) 88.0 % (40.0-70.0) H 02/20/21 06:39 Lymphocytes % (Manual) 4.0 % (13.4-35.0) L 02/20/21 06:39 Reactive Lymphs % (Man) 2.0 % 02/20/21 06:39 Monocytes % (Manual) 3.0 % (0.0-7.3) 02/20/21 06:39 Eosinophils % (Manual) 1.0 % (0.0-4.3) 02/20/21 06:39 Myelocytes % 2.0 % 02/20/21 06:39 Nucleated RBC % Not Reportable 02/20/21 06:39 Seg Neutrophils # 8.4 K/mm3 (1.8-7.7) H 02/15/21 03:55 Seg Neutrophils # Man 5.5 K/mm3 (1.8-7.7) 02/20/21 06:39 Band Neutrophils # 0.0 K/mm3 02/20/21 06:39 Lymphocytes # (Manual) 0.2 K/mm3 (1.2-5.4) L 02/20/21 06:39 Abs React Lymphs (Man) 0.1 K/mm3 02/20/21 06:39 Monocytes # (Manual) 0.2 K/mm3 (0.0-0.8) 02/20/21 06:39 Eosinophils # (Manual) 0.1 K/mm3 (0.0-0.4) 02/20/21 06:39 Basophils # (Manual) 0.0 K/mm3 (0.0-0.1) 02/20/21 06:39 Metamyelocytes # 0.0 K/mm3 02/20/21 06:39 Myelocytes # 0.1 K/mm3 02/20/21 06:39 Promyelocytes # 0.0 K/mm3 02/20/21 06:39 Blast Cells # 0.0 K/mm3 02/20/21 06:39 WBC Morphology Not Reportable 02/20/21 06:39 Hypersegmented Neuts Not Reportable 02/20/21 06:39 Hyposegmented Neuts Not Reportable 02/20/21 06:39 Hypogranular Neuts Not Reportable 02/20/21 06:39 Smudge Cells Not Reportable 02/20/21 06:39 Toxic Granulation Not Reportable 02/20/21 06:39 Toxic Vacuolation Not Reportable 02/20/21 06:39 Dohle Bodies Not Reportable 02/20/21 06:39 Pelger-Huet Anomaly Not Reportable 02/20/21 06:39 Aba Rods Not Reportable 02/20/21 06:39 Platelet Estimate Consistent w auto 02/20/21 06:39 Clumped Platelets Not Reportable 02/20/21 06:39 Plt Clumps, EDTA Not Reportable 02/20/21 06:39 Large Platelets Not Reportable 02/20/21 06:39 Giant Platelets Not Reportable 02/20/21 06:39 Platelet Satelliting Not Reportable 02/20/21 06:39 Plt Morphology Comment Not Reportable 02/20/21 06:39 RBC Morphology Normal 02/20/21 06:39 Dimorphic RBCs Not Reportable 02/20/21 06:39 Polychromasia Not Reportable 02/20/21 06:39 Hypochromasia Not Reportable 02/20/21 06:39 Poikilocytosis Not Reportable 02/20/21 06:39 Anisocytosis Not Reportable 02/20/21 06:39 Microcytosis Not Reportable 02/20/21 06:39 Macrocytosis Not Reportable 02/20/21 06:39 Spherocytes Not Reportable 02/20/21 06:39 Pappenheimer Bodies Not Reportable 02/20/21 06:39 Sickle Cells Not Reportable 02/20/21 06:39 Target Cells Not Reportable 02/20/21 06:39 Tear Drop Cells Not Reportable 02/20/21 06:39 Ovalocytes Not Reportable 02/20/21 06:39 Helmet Cells Not Reportable 02/20/21 06:39 [place] Bodies Not Reportable 02/20/21 06:39 [place] Rings Not Reportable 02/20/21 06:39 Santana Cells Not Reportable 02/20/21 06:39 Bite Cells Not Reportable 02/20/21 06:39 Crenated Cell Not Reportable 02/20/21 06:39 Elliptocytes Not Reportable 02/20/21 06:39 Acanthocytes (Spur) Not Reportable 02/20/21 06:39 Rouleaux Not Reportable 02/20/21 06:39 Hemoglobin C Crystals Not Reportable 02/20/21 06:39 Schistocytes Not Reportable 02/20/21 06:39 Malaria parasites Not Reportable 02/20/21 06:39 Alberto Bodies Not Reportable 02/20/21 06:39 Hem Pathologist Commnt No 02/20/21 06:39 PT 14.1 Sec. (12.2-14.9) 02/22/21 15:12 INR 1.03 (0.87-1.13) 02/22/21 15:12 APTT 50.0 Sec. (24.2-36.6) H 02/22/21 15:12 Thrombin Time 17.2 Sec. (15.1-19.6) 02/14/21 20:21 D-Dimer 4275.78 ng/mlDDU (0-234) H 02/20/21 06:39 Heparin Anti-Xa Level 0.32 U.I./ml (0.3-0.7) 02/22/21 06:50 Sodium 144 mmol/L (137-145) 02/22/21 06:50 Potassium 3.5 mmol/L (3.6-5.0) L 02/22/21 06:50 Chloride 105.2 mmol/L (98-107) 02/22/21 06:50 Carbon Dioxide 31 mmol/L (22-30) H 02/22/21 06:50 Anion Gap 11 mmol/L 02/22/21 06:50 BUN 19 mg/dL (7-17) H 02/22/21 06:50 Creatinine 0.9 mg/dL (0.6-1.2) 02/22/21 15:12 Estimated GFR > 60 ml/min 02/22/21 15:12 BUN/Creatinine Ratio 24 % 02/22/21 06:50 Glucose 118 mg/dL (65-100) H 02/22/21 06:50 POC Glucose 149 mg/dL (70-105) H 02/23/21 07:36 Calcium 9.2 mg/dL (8.4-10.2) 02/22/21 06:50 Phosphorus 3.30 mg/dL (2.5-4.5) 02/22/21 06:50 Magnesium 1.80 mg/dL (1.7-2.3) 02/22/21 06:50 Ferritin 915.5 ng/mL (10.0-200.0) H 02/20/21 06:39 Total Bilirubin 0.30 mg/dL (0.1-1.2) 02/20/21 06:39 AST 36 units/L (5-40) 02/20/21 06:39 ALT 27 units/L (7-56) 02/20/21 06:39 Alkaline Phosphatase 74 units/L (35-129) 02/20/21 06:39 Lactate Dehydrogenase 645 units/L (91-180) H 02/20/21 06:39 Troponin T 0.992 ng/mL (0.00-0.029) H* 02/15/21 03:55 C-Reactive Protein 3.60 mg/dL (0.00-1.30) H 02/20/21 06:39 NT-Pro-B Natriuret Pep 4086 pg/mL (0-900) H 02/15/21 08:38 Total Protein 7.0 g/dL (6.3-8.2) 02/20/21 06:39 Albumin 3.1 g/dL (3.9-5) L 02/20/21 06:39 Albumin/Globulin Ratio 0.8 % 02/20/21 06:39 Triglycerides 292 mg/dL (2-149) H 02/14/21 20:21 Cholesterol 199 mg/dL (50-199) 02/14/21 20:21 LDL Cholesterol Direct 105 mg/dL (50-130) 02/14/21 20:21 HDL Cholesterol 23 mg/dL (40-59) L 02/14/21 20:21 Cholesterol/HDL Ratio 8.65 % 02/14/21 20:21 Procalcitonin 0.59 ng/mL (<0.15) 02/15/21 18:20 Coronavirus (PCR) Positive (Negative) A 02/16/21 Unknown Blood Type A POSITIVE 02/14/21 20:21 Antibody Screen Negative 02/14/21 20:21 Taylor/IV: Voiding Method External Female Catheter Active Medications - Current Medications Current Medications: Generic Name Dose Route Start Last Admin Trade Name Freq PRN Reason Stop Dose Admin Acetaminophen 650 mg 02/16/21 01:00 02/16/21 02:09 Acetaminophen 650 Mg Rect Supp VT 650 mg Q6H PRN Administration Pain, Mild (1-3) Hydrocodone Bitart/Acetaminophen 1 each 02/14/21 21:57 02/20/21 18:16 Hydrocodone/Acetaminophen 5-325 Mg Tab PO 1 each Q6H PRN Administration Pain, Moderate (4-6) Albuterol 2.5 mg 02/14/21 21:54 Albuterol 2.5 Mg/3 Ml Nebu IH Q4HRT PRN Shortness Of Breath Lipase/Protease/Amylase 1 each 02/17/21 12:34 Lipase 10,500/Protease 25,000/Amylase 43,750 (Units) Dr Betts FEEDTUBE PRN PRN For Clogged Feeding Tube Apixaban 2.5 mg 02/22/21 22:00 02/22/21 22:13 Apixaban 2.5 Mg Tab PO 2.5 mg Q12HR KARYN Administration Protocol Aspirin 81 mg 02/16/21 12:00 02/22/21 09:15 Aspirin 81 Mg Tab Chew PO 81 mg QDAY KARYN Administration Atorvastatin Calcium 80 mg 02/15/21 22:00 02/22/21 22:12 Atorvastatin 40 Mg Tab PO 80 mg QHS KARYN Administration Clopidogrel Bisulfate 75 mg 02/15/21 10:00 02/22/21 09:15 Clopidogrel 75 Mg Tab PO 75 mg QDAY KARYN Administration Dexamethasone 10 mg 02/17/21 10:00 02/22/21 09:16 Dexamethasone 4 Mg/Ml Vial IV 02/26/21 10:01 10 mg Q24HR KARYN Administration Dextrose 0 ml 02/14/21 21:54 Dextrose 50% In Water (25gm) 50 Ml Syringe IV Q30MIN PRN Hypoglycemia Protocol Docusate Sodium 100 mg 02/14/21 22:04 02/22/21 09:15 Docusate Sodium 100 Mg Cap PO 100 mg DAILY PRN Administration Constip unreliev by MOM/or NPO Famotidine 20 mg 02/21/21 10:00 02/22/21 22:13 Famotidine 20 Mg Tab PO 20 mg BID KARYN Administration Ferrous Sulfate 300 mg 02/21/21 22:00 02/22/21 22:14 Ferrous Sulfate 300 Mg (60mg Elemental Iron) / 5 Ml Oral Liqd FEEDTUBE 300 mg BID KARYN Administration Hydromorphone HCl 0.5 mg 02/14/21 21:54 02/18/21 22:00 Hydromorphone 1 Mg/1 Ml Inj IV 0.5 mg Q3H PRN Administration Pain , Severe (7-10) Hydrophilic Ointment 1 applic 02/20/21 09:00 Lip Therapy Vaseline TP DIRECT PRN Dry Lips Insulin Glargine 10 units 02/17/21 22:00 02/22/21 22:55 Insulin Glargine 100 Units/Ml SUB-Q 10 units QHS [facility] Administration Insulin Human Lispro 0 unit 02/17/21 22:00 02/23/21 08:17 Insulin Lispro 100 Unit/Ml SUB-Q Not Given [facility] Protocol Insulin Human Regular 7 units 02/22/21 16:30 02/23/21 08:29 Insulin Regular, Human 100 Units/1 Ml SUB-Q 7 units [facility] Administration Melatonin 5 mg 02/16/21 17:53 02/17/21 21:39 Melatonin 5 Mg Tab PO 5 mg QHS PRN Administration Sleep Metoprolol Tartrate 50 mg 02/19/21 22:00 02/22/21 22:12 Metoprolol Tartrate 50 Mg Tab PO 50 mg BID KARYN Administration Morphine Sulfate 2 mg 02/14/21 21:54 Morphine 2 Mg/1 Ml Inj IV Q4H PRN Pain, Moderate (4-6) Ondansetron HCl 4 mg 02/14/21 21:54 02/17/21 21:38 Ondansetron 4 Mg/2 Ml Inj IV 4 mg Q8H PRN Administration Nausea And Vomiting Simple Syrup 15 ml 02/17/21 12:34 Simple Syrup 15 Ml FEEDTUBE PRN PRN Hypoglycemia Simple Syrup 30 ml 02/17/21 12:34 Simple Syrup 15 Ml FEEDTUBE PRN PRN Hypoglycemia Sodium Bicarbonate 325 mg 02/17/21 12:34 Sodium Bicarbonate 325 Mg Tab FEEDTUBE PRN PRN For Clogged Feeding Tube Sodium Chloride 10 ml 02/14/21 22:00 02/22/21 22:14 Sodium Chloride 0.9% 10 Ml Flush Syringe IV 10 ml BID KARYN Administration Sodium Chloride 10 ml 02/14/21 21:54 Sodium Chloride 0.9% 10 Ml Flush Syringe IV PRN PRN LINE FLUSH Nutrition/Malnutrition Assess - Dietary Evaluation Nutrition/Malnutrition Findings: Nutrition Notes Start: 02/15/21 12:03 Freq: Status: Active Protocol: Document 02/20/21 16:12 GB (Rec: 02/20/21 16:21 GB [id number]) Nutrition Notes Initial or Follow up Reassessment Current Diagnosis Diabetes,Hypertension, Respiratory Failure,Stroke Other Pertinent Diagnosis hyperglycemia, STEMI Current Diet Mechanical soft, thni liquids Labs/Tests 02/20: Na 151, BUN 23, glucose 140, ferritin 915.3 Pertinent Medications ferrous sulfate, NaCl/Hep, NaCl, remdesivir Height 5 ft 4 in Weight 104.3 kg [place] Body Weight (kg) 54.54 BMI 39.4 Weight change and time frame no significant changes at this time Weight Status Obese Subjective/Other Information per MD ntoes 02/20: NG d/c 02/19 . [employer] eval advanced diet texture to mechanical soft thin liquids. PO recorded 25% x 1 meal. Adding glucerna BID for additional calories/ protein while po intake recovers. Percent of energy/protein needs met: PO intake of meals and supplement 50% or greater will meet 75% or greater of estimated energy needs. Burn Absent Trauma Absent GI Symptoms None Difficulty In Swallowing Food Allergy No Current % PO Poor (25-49%) Minimum of two criteria No #2 Nutrition Diagnosis Inadequate energy intake Etiology DM, collapse As Evidenced by Signs and Symptoms Recent advancement to PO intake with mechanically altered texture diet, NG d/c , need for nutritional supplement beverage to meet estimated energy needs. #1 Nutrition Diagnosis Other: (Specify in comment below) Comments: Comprimised PO intake, dependency for enteral feed to meet nutrition needs Etiology DM, collapse, As Evidenced by Signs and Symptoms not able to eat PO at this time, MD order for TF Diagnosis Progress(for reassessment Resolved documentation) Is patient on ventilator? No Is Patient Ambulatory and/or Out of Bed Yes REE-([place]-St. Jeor-ambulatory/OOB) [ 2103.400 [id number]] Kcal/Kg value to use for calculation 17 Approximate Energy Requirements Using 1773 kcal/Kg Calculation Used for Recommendations Kcal/kg Additional Notes Protein: 0.7-1 g/kg @ 104k-104g Fluids: 1 ml/kcal or per MD Nutrition Intervention Change Diet Order: Continue with current diet advancing texture per [employer] Nutrition Support: n/a Add Supplement/Snack (indicate name/kcal glucerna BID /protein ) Provides kCal: 440 Provides Protein (gm) 20 Goal #1 PO intake of meals to improve to 50% or greater during LOS Goal #2 weight to maintain within -3% current weight for LOS Goal #3 PO intake of nutritional supplement beverage to be 50% or greater BID daily during LOS Follow-Up By: 02/27/21 Additional Comments Follow PO intake of meals/ supplements
[2021-02-23] MEDS: FERROUS SULFATE 300 MG (60MG Elemental Iron) / 5 mL ORAL LIQD FEEDTUBE SCH ×2 (10:38→21:28)
[2021-02-23] MEDS: dexAMETHasone 4 MG/ML VIAL IV SCH (10:41)
[2021-02-23] MEDS: ASPIRIN 81 MG TAB CHEW PO SCH (10:42)
[2021-02-23] MEDS: METOPROLOL TARTRATE 50 MG TAB PO SCH ×2 (10:42→21:36)
[2021-02-23] MEDS: FAMOTIDINE 20 MG TAB PO SCH ×2 (10:42→21:38)
[2021-02-23] MEDS: APIXABAN 2.5 MG TAB PO SCH ×2 (10:42→21:27)
[2021-02-23] MEDS: CLOPIDOGREL 75 MG TAB PO SCH (10:43)
--- NOTE | 2021-02-23 13:22 | Progress Note ---
Assessment and Plan 55 y/o female with STEMI and acute respiratory failure 02/23/21: Supportive care. Guarded prognosis. 02/22/21: CXR is unchanged. EF is 55%. Will speak with RT about the acute change from 50-100%. Hold on lasix today given K of 3.5 but would benefit from again. Guarded prognosis. 02/21/21: Will order CXR for today for review. Follow up echo results. hold on lasix until those results are back. Wean FiO2 for sats >88%. Will speak with RT about more detailed documentation to explain significant increases in oxygen requirement. 02/20/21: Wean for sats >88%. Steroids and Remdesivir. Will hold on lasix today although it did not make sodium worse so could consider repeat dosing. Guarded prognosis. 02/19/21: continue to wean for sats >88%. Steroids and remdesivir. Feel patient is stable enough to go to COVID floor or at least Step down. Needs more free water. Patient is taking po so can be given this way. Did give lasix x1 today to help with volume given I/O record. May make Na worse. 02/18/21: WEan FiO2 and flow for sats >88%. Continue therapy for COVID. Guideline therapy for CAD. Guarded prognosis. 02/17/21: Suspect family knew patient was COVID positive and did not tell us. 48 hours now behind on starting therapy, maybe longer. Agree with steroids. Will ask ID about Remdesivir and Actemra. Monitor fluids, BNP was still elevated despite normal EF. Wean FiO2 as tolerated and need to have patient manually prone. Follow up neurology recs as well as ID. Guarded prognosis. 02/16/21: Responded well to diuresis, will give more lasix today. Going for MRI today. Spoke with downstairs who is upset about lack of visitation. he also states that he has a neurologist who is willing to accept the patient to [facility] but he refused to give me the name of the physician. Will continue supportive measures. 1. Pulm- CXR appears to be more consistent with pulmonary edema and BNP is 4k. Stopped IVF's. Attempted to take of bipap but desats on cannula. Awake and tachypnic. Will give lasix 20mg IV x1 now to see if this helps with oxygen requirement. DO not feel this is infection. 2. Cards-STemi, goal directed therapy and follow up echo, done but not read yet. 3. Endo-elevated blood sugar likely related to acute mI, although patient could have underlying disease given age and weight, suggest checking A1C. 4. Guarded prognosis Subjective Date of service: 02/23/21 Principal diagnosis: CVA with left side weakness ,elevated inflammatory markers Interval history: Down to 35% with sats in the 90's. Objective Vital Signs - 12hr 02/23/21 02/23/21 02/23/21 04:00 05:00 05:34 Temperature 98.7 F Pulse Rate 79 85 Respiratory 20 Rate Blood Pressure 137/86 O2 Sat by Pulse 98 90 Oximetry 02/23/21 08:13 Temperature Pulse Rate Respiratory Rate Blood Pressure O2 Sat by Pulse 90 Oximetry Gastrointestinal: normoactive bowel sounds Integumentary: normal CBC and BMP: 02/23/21 05:50 02/22/21 15:12 ABG, PT/INR, D-dimer: PT/INR, D-dimer PT 14.1 Sec. (12.2-14.9) 02/22/21 15:12 INR 1.03 (0.87-1.13) 02/22/21 15:12 D-Dimer 4275.78 ng/mlDDU (0-234) H 02/20/21 06:39 Abnormal lab findings: Abnormal Labs 02/14/21 02/14/21 02/14/21 20:21 20:21 20:21 WBC 15.6 H RBC 5.55 H Hct 43.3 H MCV 78 L MCH 26 L MCHC RDW 16.3 H Lymph % (Auto) Lymph # (Auto) Seg Neutrophils % Seg Neuts % (Manual) 96.0 H Lymphocytes % (Manual) 3.0 L Seg Neutrophils # Seg Neutrophils # Man 15.0 H Lymphocytes # (Manual) 0.5 L PT 16.7 H INR 1.30 H APTT D-Dimer Heparin Anti-Xa Level Sodium 131 L Potassium 5.1 H Chloride 88.4 L Carbon Dioxide 20 L BUN 34 H Creatinine 1.5 H Glucose 574 H* POC Glucose Magnesium Ferritin AST Lactate Dehydrogenase Troponin T 0.882 H* C-Reactive Protein NT-Pro-B Natriuret Pep Albumin Triglycerides 292 H HDL Cholesterol 23 L Coronavirus (PCR) 02/14/21 02/14/21 02/14/21 20:21 23:11 23:20 WBC RBC Hct MCV MCH MCHC RDW Lymph % (Auto) Lymph # (Auto) Seg Neutrophils % Seg Neuts % (Manual) Lymphocytes % (Manual) Seg Neutrophils # Seg Neutrophils # Man Lymphocytes # (Manual) PT INR APTT D-Dimer Heparin Anti-Xa Level Sodium Potassium Chloride Carbon Dioxide BUN Creatinine Glucose POC Glucose 562 H 422 H Magnesium Ferritin AST Lactate Dehydrogenase Troponin T 0.892 H* C-Reactive Protein NT-Pro-B Natriuret Pep Albumin Triglycerides HDL Cholesterol Coronavirus (PCR) 02/15/21 02/15/21 02/15/21 03:55 03:55 05:29 WBC RBC 5.17 H Hct MCV 77 L MCH 26 L MCHC RDW 15.8 H Lymph % (Auto) 4.9 L Lymph # (Auto) 0.5 L Seg Neutrophils % 89.2 H Seg Neuts % (Manual) Lymphocytes % (Manual) Seg Neutrophils # 8.4 H Seg Neutrophils # Man Lymphocytes # (Manual) PT INR APTT D-Dimer Heparin Anti-Xa Level Sodium 136 L Potassium Chloride 97.3 L Carbon Dioxide 18 L BUN 33 H Creatinine Glucose 402 H POC Glucose 345 H Magnesium Ferritin AST 46 H Lactate Dehydrogenase Troponin T 0.992 H* C-Reactive Protein NT-Pro-B Natriuret Pep Albumin 3.0 L Triglycerides HDL Cholesterol Coronavirus (PCR) 02/15/21 02/15/21 02/15/21 08:38 08:38 08:38 WBC RBC Hct MCV 75 L MCH 26 L MCHC 35 H RDW 16.2 H Lymph % (Auto) Lymph # (Auto) Seg Neutrophils % Seg Neuts % (Manual) Lymphocytes % (Manual) Seg Neutrophils # Seg Neutrophils # Man Lymphocytes # (Manual) PT INR APTT D-Dimer Heparin Anti-Xa Level Sodium 135 L Potassium Chloride Carbon Dioxide 19 L BUN 31 H Creatinine Glucose 360 H POC Glucose Magnesium 2.50 H Ferritin AST Lactate Dehydrogenase Troponin T C-Reactive Protein NT-Pro-B Natriuret Pep 4086 H Albumin Triglycerides HDL Cholesterol Coronavirus (PCR) 02/15/21 02/15/21 02/15/21 11:15 17:28 18:20 WBC RBC Hct MCV MCH MCHC RDW Lymph % (Auto) Lymph # (Auto) Seg Neutrophils % Seg Neuts % (Manual) Lymphocytes % (Manual) Seg Neutrophils # Seg Neutrophils # Man Lymphocytes # (Manual) PT INR APTT D-Dimer > 78761 H Heparin Anti-Xa Level Sodium Potassium Chloride Carbon Dioxide BUN Creatinine Glucose POC Glucose 317 H 311 H Magnesium Ferritin AST Lactate Dehydrogenase Troponin T C-Reactive Protein NT-Pro-B Natriuret Pep Albumin Triglycerides HDL Cholesterol Coronavirus (PCR) 02/15/21 02/15/21 02/15/21 18:20 18:20 18:20 WBC RBC Hct MCV MCH MCHC RDW Lymph % (Auto) Lymph # (Auto) Seg Neutrophils % Seg Neuts % (Manual) Lymphocytes % (Manual) Seg Neutrophils # Seg Neutrophils # Man Lymphocytes # (Manual) PT 15.8 H INR 1.20 H APTT D-Dimer Heparin Anti-Xa Level Sodium Potassium Chloride Carbon Dioxide BUN Creatinine Glucose POC Glucose Magnesium Ferritin 837.7 H AST Lactate Dehydrogenase 766 H Troponin T C-Reactive Protein 21.50 H NT-Pro-B Natriuret Pep Albumin Triglycerides HDL Cholesterol Coronavirus (PCR) 02/15/21 02/16/21 02/16/21 23:45 02:44 02:44 WBC RBC Hct MCV 77 L MCH 26 L MCHC RDW 16.0 H Lymph % (Auto) Lymph # (Auto) Seg Neutrophils % Seg Neuts % (Manual) Lymphocytes % (Manual) Seg Neutrophils # Seg Neutrophils # Man Lymphocytes # (Manual) PT INR APTT D-Dimer Heparin Anti-Xa Level Sodium Potassium Chloride Carbon Dioxide BUN 27 H Creatinine Glucose 269 H POC Glucose 203 H Magnesium Ferritin AST Lactate Dehydrogenase Troponin T C-Reactive Protein NT-Pro-B Natriuret Pep Albumin Triglycerides HDL Cholesterol Coronavirus (PCR) 02/16/21 02/16/21 02/16/21 05:47 11:50 15:00 WBC RBC Hct MCV MCH MCHC RDW Lymph % (Auto) Lymph # (Auto) Seg Neutrophils % Seg Neuts % (Manual) Lymphocytes % (Manual) Seg Neutrophils # Seg Neutrophils # Man Lymphocytes # (Manual) PT INR APTT D-Dimer Heparin Anti-Xa Level < 0.10 L Sodium Potassium Chloride Carbon Dioxide BUN Creatinine Glucose POC Glucose 275 H 251 H Magnesium Ferritin AST Lactate Dehydrogenase Troponin T C-Reactive Protein NT-Pro-B Natriuret Pep Albumin Triglycerides HDL Cholesterol Coronavirus (PCR) 09/02/16/21 02/16/21 18:23 23:30 23:57 WBC RBC Hct MCV MCH MCHC RDW Lymph % (Auto) Lymph # (Auto) Seg Neutrophils % Seg Neuts % (Manual) Lymphocytes % (Manual) Seg Neutrophils # Seg Neutrophils # Man Lymphocytes # (Manual) PT INR APTT D-Dimer Heparin Anti-Xa Level < 0.10 L Sodium Potassium Chloride Carbon Dioxide BUN Creatinine Glucose POC Glucose 237 H 249 H Magnesium Ferritin AST Lactate Dehydrogenase Troponin T C-Reactive Protein NT-Pro-B Natriuret Pep Albumin Triglycerides HDL Cholesterol Coronavirus (PCR) 02/16/21 02/17/21 02/17/21 Unknown 05:25 06:18 WBC RBC Hct MCV MCH MCHC RDW Lymph % (Auto) Lymph # (Auto) Seg Neutrophils % Seg Neuts % (Manual) Lymphocytes % (Manual) Seg Neutrophils # Seg Neutrophils # Man Lymphocytes # (Manual) PT INR APTT D-Dimer Heparin Anti-Xa Level Sodium Potassium Chloride Carbon Dioxide BUN Creatinine Glucose POC Glucose 238 H 229 H Magnesium Ferritin AST Lactate Dehydrogenase Troponin T C-Reactive Protein NT-Pro-B Natriuret Pep Albumin Triglycerides HDL Cholesterol Coronavirus (PCR) Positive A 02/17/21 02/17/21 02/17/21 11:35 13:30 13:30 WBC RBC Hct MCV MCH MCHC RDW Lymph % (Auto) Lymph # (Auto) Seg Neutrophils % Seg Neuts % (Manual) Lymphocytes % (Manual) Seg Neutrophils # Seg Neutrophils # Man Lymphocytes # (Manual) PT INR APTT D-Dimer Heparin Anti-Xa Level 0.29 L Sodium 146 H D Potassium Chloride 107.3 H Carbon Dioxide BUN 29 H Creatinine Glucose 334 H POC Glucose 279 H Magnesium Ferritin AST Lactate Dehydrogenase Troponin T C-Reactive Protein NT-Pro-B Natriuret Pep Albumin Triglycerides HDL Cholesterol Coronavirus (PCR) 02/17/21 02/17/21 02/17/21 13:30 13:30 16:42 WBC RBC Hct MCV 77 L MCH 25 L MCHC RDW 16.1 H Lymph % (Auto) Lymph # (Auto) Seg Neutrophils % Seg Neuts % (Manual) Lymphocytes % (Manual) Seg Neutrophils # Seg Neutrophils # Man Lymphocytes # (Manual) PT INR APTT D-Dimer Heparin Anti-Xa Level Sodium 146 H Potassium Chloride Carbon Dioxide BUN 29 H Creatinine Glucose 340 H POC Glucose 291 H Magnesium Ferritin AST Lactate Dehydrogenase Troponin T C-Reactive Protein NT-Pro-B Natriuret Pep Albumin 2.7 L Triglycerides HDL Cholesterol Coronavirus (PCR) 02/17/21 02/18/21 02/18/21 21:43 04:40 04:40 WBC RBC Hct MCV 78 L MCH 26 L MCHC RDW 16.3 H Lymph % (Auto) Lymph # (Auto) Seg Neutrophils % Seg Neuts % (Manual) Lymphocytes % (Manual) Seg Neutrophils # Seg Neutrophils # Man Lymphocytes # (Manual) PT INR APTT D-Dimer Heparin Anti-Xa Level Sodium 149 H Potassium Chloride 108.9 H Carbon Dioxide BUN 34 H Creatinine Glucose 318 H POC Glucose 288 H Magnesium Ferritin AST Lactate Dehydrogenase Troponin T C-Reactive Protein 14.50 H NT-Pro-B Natriuret Pep Albumin 3.0 L Triglycerides HDL Cholesterol Coronavirus (PCR) 02/18/21 02/18/21 02/18/21 04:40 08:02 11:30 WBC RBC Hct MCV MCH MCHC RDW Lymph % (Auto) Lymph # (Auto) Seg Neutrophils % Seg Neuts % (Manual) Lymphocytes % (Manual) Seg Neutrophils # Seg Neutrophils # Man Lymphocytes # (Manual) PT INR APTT D-Dimer 3846.94 H Heparin Anti-Xa Level Sodium Potassium Chloride Carbon Dioxide BUN Creatinine Glucose POC Glucose 263 H 309 H Magnesium Ferritin AST Lactate Dehydrogenase Troponin T C-Reactive Protein NT-Pro-B Natriuret Pep Albumin Triglycerides HDL Cholesterol Coronavirus (PCR) 02/18/21 02/18/21 02/18/21 12:29 21:56 22:34 WBC RBC Hct MCV MCH MCHC RDW Lymph % (Auto) Lymph # (Auto) Seg Neutrophils % Seg Neuts % (Manual) Lymphocytes % (Manual) Seg Neutrophils # Seg Neutrophils # Man Lymphocytes # (Manual) PT INR APTT D-Dimer Heparin Anti-Xa Level 0.29 L Sodium Potassium Chloride Carbon Dioxide BUN Creatinine Glucose POC Glucose 313 H 284 H Magnesium Ferritin AST Lactate Dehydrogenase Troponin T C-Reactive Protein NT-Pro-B Natriuret Pep Albumin Triglycerides HDL Cholesterol Coronavirus (PCR) 02/18/21 02/19/21 02/19/21 23:52 06:11 07:54 WBC RBC Hct MCV MCH MCHC RDW Lymph % (Auto) Lymph # (Auto) Seg Neutrophils % Seg Neuts % (Manual) Lymphocytes % (Manual) Seg Neutrophils # Seg Neutrophils # Man Lymphocytes # (Manual) PT INR APTT D-Dimer Heparin Anti-Xa Level Sodium 151 H Potassium Chloride 110.6 H Carbon Dioxide BUN 28 H Creatinine Glucose 191 H POC Glucose 272 H 155 H Magnesium Ferritin AST Lactate Dehydrogenase Troponin T C-Reactive Protein NT-Pro-B Natriuret Pep Albumin 3.0 L Triglycerides HDL Cholesterol Coronavirus (PCR) 02/19/21 02/19/21 02/19/21 12:37 16:29 21:28 WBC RBC Hct MCV MCH MCHC RDW Lymph % (Auto) Lymph # (Auto) Seg Neutrophils % Seg Neuts % (Manual) Lymphocytes % (Manual) Seg Neutrophils # Seg Neutrophils # Man Lymphocytes # (Manual) PT INR APTT D-Dimer Heparin Anti-Xa Level Sodium Potassium Chloride Carbon Dioxide BUN Creatinine Glucose POC Glucose 233 H 268 H 298 H Magnesium Ferritin AST Lactate Dehydrogenase Troponin T C-Reactive Protein NT-Pro-B Natriuret Pep Albumin Triglycerides HDL Cholesterol Coronavirus (PCR) 02/19/21 02/20/21 02/20/21 23:34 06:39 06:39 WBC RBC 5.08 H Hct MCV 77 L MCH 25 L MCHC RDW 16.0 H Lymph % (Auto) Lymph # (Auto) Seg Neutrophils % Seg Neuts % (Manual) 88.0 H Lymphocytes % (Manual) 4.0 L Seg Neutrophils # Seg Neutrophils # Man Lymphocytes # (Manual) 0.2 L PT INR APTT D-Dimer 4275.78 H Heparin Anti-Xa Level 0.26 L Sodium Potassium Chloride Carbon Dioxide BUN Creatinine Glucose POC Glucose Magnesium Ferritin AST Lactate Dehydrogenase Troponin T C-Reactive Protein NT-Pro-B Natriuret Pep Albumin Triglycerides HDL Cholesterol Coronavirus (PCR) 02/20/21 02/20/21 02/20/21 06:39 06:39 08:45 WBC RBC Hct MCV MCH MCHC RDW Lymph % (Auto) Lymph # (Auto) Seg Neutrophils % Seg Neuts % (Manual) Lymphocytes % (Manual) Seg Neutrophils # Seg Neutrophils # Man Lymphocytes # (Manual) PT INR APTT D-Dimer Heparin Anti-Xa Level Sodium 152 H 151 H Potassium Chloride 112.0 H 111.4 H Carbon Dioxide 31 H BUN 23 H 23 H Creatinine Glucose 119 H 140 H POC Glucose Magnesium Ferritin 915.5 H AST Lactate Dehydrogenase 645 H Troponin T C-Reactive Protein 3.60 H NT-Pro-B Natriuret Pep Albumin 3.1 L Triglycerides HDL Cholesterol Coronavirus (PCR) 02/20/21 02/20/21 02/20/21 11:57 18:01 22:20 WBC RBC Hct MCV MCH MCHC RDW Lymph % (Auto) Lymph # (Auto) Seg Neutrophils % Seg Neuts % (Manual) Lymphocytes % (Manual) Seg Neutrophils # Seg Neutrophils # Man Lymphocytes # (Manual) PT INR APTT D-Dimer Heparin Anti-Xa Level Sodium Potassium Chloride Carbon Dioxide BUN Creatinine Glucose POC Glucose 217 H 337 H 379 H Magnesium Ferritin AST Lactate Dehydrogenase Troponin T C-Reactive Protein NT-Pro-B Natriuret Pep Albumin Triglycerides HDL Cholesterol Coronavirus (PCR) 02/21/21 02/21/21 02/21/21 07:43 11:42 16:30 WBC RBC Hct MCV MCH MCHC RDW Lymph % (Auto) Lymph # (Auto) Seg Neutrophils % Seg Neuts % (Manual) Lymphocytes % (Manual) Seg Neutrophils # Seg Neutrophils # Man Lymphocytes # (Manual) PT INR APTT D-Dimer Heparin Anti-Xa Level Sodium Potassium Chloride Carbon Dioxide BUN Creatinine Glucose POC Glucose 152 H 206 H 235 H Magnesium Ferritin AST Lactate Dehydrogenase Troponin T C-Reactive Protein NT-Pro-B Natriuret Pep Albumin Triglycerides HDL Cholesterol Coronavirus (PCR) 02/21/21 02/22/21 02/22/21 21:56 05:51 06:50 WBC RBC Hct MCV MCH MCHC RDW Lymph % (Auto) Lymph # (Auto) Seg Neutrophils % Seg Neuts % (Manual) Lymphocytes % (Manual) Seg Neutrophils # Seg Neutrophils # Man Lymphocytes # (Manual) PT INR APTT D-Dimer Heparin Anti-Xa Level Sodium Potassium 3.5 L Chloride Carbon Dioxide 31 H BUN 19 H Creatinine Glucose 118 H POC Glucose 205 H 121 H Magnesium Ferritin AST Lactate Dehydrogenase Troponin T C-Reactive Protein NT-Pro-B Natriuret Pep Albumin Triglycerides HDL Cholesterol Coronavirus (PCR) 02/22/21 02/22/21 02/22/21 07:55 11:47 15:12 WBC RBC Hct MCV 76 L MCH 26 L MCHC RDW Lymph % (Auto) Lymph # (Auto) Seg Neutrophils % Seg Neuts % (Manual) Lymphocytes % (Manual) Seg Neutrophils # Seg Neutrophils # Man Lymphocytes # (Manual) PT INR APTT D-Dimer Heparin Anti-Xa Level Sodium Potassium Chloride Carbon Dioxide BUN Creatinine Glucose POC Glucose 148 H 216 H Magnesium Ferritin AST Lactate Dehydrogenase Troponin T C-Reactive Protein NT-Pro-B Natriuret Pep Albumin Triglycerides HDL Cholesterol Coronavirus (PCR) 02/22/21 02/22/21 02/22/21 15:12 17:55 22:01 WBC RBC Hct MCV MCH MCHC RDW Lymph % (Auto) Lymph # (Auto) Seg Neutrophils % Seg Neuts % (Manual) Lymphocytes % (Manual) Seg Neutrophils # Seg Neutrophils # Man Lymphocytes # (Manual) PT INR APTT 50.0 H D-Dimer Heparin Anti-Xa Level Sodium Potassium Chloride Carbon Dioxide BUN Creatinine Glucose POC Glucose 327 H 173 H Magnesium Ferritin AST Lactate Dehydrogenase Troponin T C-Reactive Protein NT-Pro-B Natriuret Pep Albumin Triglycerides HDL Cholesterol Coronavirus (PCR) 02/23/21 02/23/21 07:36 10:32 WBC RBC Hct MCV MCH MCHC RDW Lymph % (Auto) Lymph # (Auto) Seg Neutrophils % Seg Neuts % (Manual) Lymphocytes % (Manual) Seg Neutrophils # Seg Neutrophils # Man Lymphocytes # (Manual) PT INR APTT D-Dimer Heparin Anti-Xa Level Sodium Potassium Chloride Carbon Dioxide BUN Creatinine Glucose POC Glucose 149 H 240 H Magnesium Ferritin AST Lactate Dehydrogenase Troponin T C-Reactive Protein NT-Pro-B Natriuret Pep Albumin Triglycerides HDL Cholesterol Coronavirus (PCR)
--- NOTE | 2021-02-23 14:18 | Progress Note ---
Assessment and Plan Cultures: 02/16/2021 blood culture: no growth SARS CoV2 PCR positive Assessment: 55-year-old female with history of diabetes mellitus, admitted on 02/14/2021 secondary to left-sided weakness, left facial droop and dysarthria for unknown amount of time likely 12-24h with a previous 2-week history of flulike symptoms: #Acute sepsis: likely secondary to bilateral pneumonia +/- STEMI +/- CVA. #Bilateral pneumonia: secondary to COVID. CXR with bilateral pneumonia. Initial labs: CRP 21.5, ferritin 837, LDH 766, D-dimer > 10K. Received Actemra on 02/17/2021. Procal moderately elevated, completed ceftriaxone and azithromycin course, completed remdesivir. On steroids. #Acute hypoxemic respiratory failure: requiring BiPAP/HFNC #Elevated LFTs: from sepsis/COVID #ADAM: resolved. #STEMI: s/p heart cath with stent placement in the RCA. #Possible CVA: Patient was out of window of TPA per neuro. Recommendations: -s/p Actemra on 02/17/2021 -s/p remdesivir -continue dexamethasone IV/PO daily for 10-14 days, benefit beyond that is unclear and increases risk of nosocomial infections especially given Actemra use -guarded prognosis Simin Engel MD, FACP [facility] ([facility] O: [phone] F: [phone] Subjective Date of service: 02/23/21 Principal diagnosis: CVA with left side weakness ,elevated inflammatory markers Interval history: Afebrile. Remains on high flow nasal cannula. Objective - Exam Narrative Exam: Physical Exam (reviewed in chart to minimize risk of transmission) Constitutional: deferred Head, Ears, Nose: deferred Eyes: deferred Neck: deferred Oral: deferred Cardiovascular: deferred Respiratory: deferred GI: deferred Musculoskeletal: deferred Skin: deferred Hem/Lymphatic: deferred Psych: deferred Neurological: deferred - Constitutional Vitals: Vital Signs Temp Pulse Resp BP Pulse Ox 98.7 F 85 20 137/86 90 02/23/21 05:34 02/23/21 05:34 02/23/21 05:34 02/23/21 05:34 02/23/21 14:06 Temperature -Last 24 Hours Temperature 98.7 F Temperature 98.8 F Temperature 98.4 F - Labs CBC & Chem 7: 02/23/21 05:50 02/22/21 15:12 Labs: Abnormal lab results 02/22/21 02/22/21 02/22/21 Range/Units 15:12 15:12 17:55 MCV 76 L (79-97) fl MCH 26 L (28-32) pg APTT 50.0 H (24.2-36.6) Sec. POC Glucose 327 H (70-105) mg/dL 02/22/21 02/23/21 02/23/21 Range/Units 22:01 07:36 10:32 MCV (79-97) fl MCH (28-32) pg APTT (24.2-36.6) Sec. POC Glucose 173 H 149 H 240 H (70-105) mg/dL
--- NOTE | 2021-02-23 17:52 | Progress Note ---
Assessment and Plan - Patient Problems (1) STEMI (ST elevation myocardial infarction) Current Visit: Yes Status: Acute Plan to address problem: Status post thromboembolic inferior myocardial infarction treated with primary angioplasty and drug-eluting stenting. (2) Venous thromboembolism Current Visit: Yes Status: Acute Plan to address problem: Right ventricular thrombus in transition, on triple therapy with baby aspirin, Plavix, Eliquis. Subjective Date of service: 02/23/21 Principal diagnosis: CVA with left side weakness ,elevated inflammatory markers Interval history: The patient is comfortable, no acute distress. No new cardiac complaints. Objective Vital Signs Temp Pulse Resp BP Pulse Ox 02/23/21 14:06 90 02/23/21 10:43 89 90 02/23/21 10:33 94 H 94 02/23/21 10:32 98.8 F 92 H 19 134/71 95 02/23/21 10:00 90 02/23/21 08:13 90 02/23/21 05:34 98.7 F 85 20 137/86 90 02/23/21 05:00 98 02/23/21 04:00 79 02/23/21 00:00 79 02/22/21 23:35 100 02/22/21 22:12 79 146/98 02/22/21 22:00 98.8 F 79 20 146/98 93 02/22/21 20:00 91 H 02/22/21 17:59 98.4 F 91 H 18 141/86 97 - Physical Examination Narrative exam: Full physical exam is deferred due to acute Covid pneumonia. General: No Apparent Distress HEENT: Positive: PERRL Neck: Positive: trachea midline Neuro: Positive: Grossly Intact Abdomen: Positive: Unremarkable Extremities: Absent: edema - Labs and Meds CBC 02/23/21 Range/Units 05:50 Hgb 13.3 (10.1-14.3) gm/dl Hct 39.4 (30.3-42.9) % Plt Count 218 (140-440) K/mm3 - Imaging and Cardiology Echo: other (02/14/2021 Echo - Normal LV and RV systolic function, thrombus in RV)
[2021-02-23] MEDS: INSULIN GLARGINE 100 UNITS/ML SUB-Q SCH (21:35)
[2021-02-24 06:14] LABS: Hematocrit 40.2 % (30.3-42.9); Hemoglobin 13.3 gm/dl (10.1-14.3); Mean Corpuscular HGB Conc 33 % (30-34); Mean Corpuscular Volume 77 fl (79-97); Platelet Count 231 K/mm3 (140-440); Red Blood Count 5.26 M/mm3 (3.65-5.03); Red Cell Distribution Width 15.2 % (13.2-15.2)
[2021-02-24] MEDS: INSULIN LISPRO 100 UNIT/ML SUB-Q SCH ×4 (07:54→23:25)
[2021-02-24] MEDS: INSULIN REGULAR, HUMAN 100 UNITS/1 ML SUB-Q SCH ×4 (07:58→23:37)
--- NOTE | 2021-02-24 09:05 | Progress Note ---
Assessment and Plan Assessment and plan: 55-year-old female with PmHx of HTN, uterine fibroids and ex-smoker admitted for acute right MCA CVA and STEMI s/p PCI in RCA, now with acute respiratory distress requiring continuous Bipap. Hospital Course to date: 02/16/21- Patient AAOX4, with slurred speech and Lt. sided weakness. MRI/MRA brain pending. Remains on continuous Bipap, failed optiflow trial overnight. Bilateral infiltrate noted on today CXR additional lasix was adminstered to optimize Respiratory status, However was D/C due to marginal BP concern for Hypoperfusion. Will reassess in the Am. Plan to wean off Bipap as tolerated. Patient has been NPO due to continuous Bipap. When patient is off bipap nurse to complete bedside swallow screen, if fail will place NGT so pateint can received PO meds. Low grade temp today, TMAX 101.2 in last 24hrs, Bcult pending, on IV abx, ceftriaxone and azithromycin. COVID swab result pending, ID on the case rec to start dexamethasone 6 mg IV/p.o. daily for 10 days. 02/17/21- COVID PCR can back possible, patient was already on Rocephin and azithromaci, added Remdesevir per protocol, and IV decadron was initiated. Patient was wean to heated high flow, currently on 70% FiO2 and 40L. Wean O2 supplement as tolerated for a SPO2b goal above 88%. Persistent hyperglycemia, lantus increased to 10 units. Speech eval completed, patient pass swallow, order placed for pureed diet with thin liquid. Will continue to monitor, Heparing gtt per protocol, Am labs ordered. 02/18/21-blood sugars this morning over 300. Ordered 10 units of IV insulin once. Added 5 units scheduled insulin in addition to sliding scale insulin. Diet change to diabetic diet. 02/19/21: Transfer to floor. NG tube d/c. 02/20/21: Will get speech therapy to re-evaluate patient to see if patient can be escalated from pureed diet. Cardiology recommendations noted, BB is increased. Continue supportive management for covid 19 pneumonia. HFNC currently at 35 l/min/fio2=60%. Ok with sats > 88%. Attempted to call Durga but voicemail was to another person in chart. Will attempt to find another number to update . 02/21/2021. Patient currently with 35 L of oxygen with an FiO2 of 70%. Continue statin therapy, beta blockers, and DAPT with plavix and aspirin per cardiology recommendation. Continue intravenous heparin, ultimately will be transitioned to long-term warfarin therapy or a NOAC. 02/22/2021. Patient's oxygen requirement has been decreased to 30 L/min via HFNC with FiO2 50%. Continue per ID and pulmonary recommendations. Patient received Actemra 02/17/2021. Complete remdesivir x5 days. Complete dexamethasone IV for 10 days. Cardiology also recommends continued statin therapy, beta-blockers and DAPT with Plavix and aspirin. Continue IV heparin and transition to long-term warfarin or NOAC per cardiology 02/23/2021. Chest x-ray from yesterday is unchanged. Patient currently on high flow nasal cannula 30 L/min with FiO2 35%. Continue per ID and pulmonary recommendations. Patient received Actemra 02/17/2021. Complete remdesivir x5 days. Complete dexamethasone IV for 10 days. Cardiology also recommends continued statin therapy, beta-blockers and DAPT with Plavix and aspirin. Continue IV heparin and transition to long-term warfarin or NOAC per cardiology 02/24/2021. Patient remains on high flow nasal cannula 30 L O2 with FiO2 35%. Patient will complete dexamethasone on 02/26/2021. Patient is s/p remdesivir and Actemra. Continue prone positioning as able. Continue statin therapy, beta- blockers and DAPT with Plavix and aspirin. Continue IV heparin and transition to long-term warfarin or NOAC per cardiology #Neuro: Acute right MCA CVA - 02/13/21- CT head shows microvascular angiopathy, decreased attenuation along the posterior right frontal subcortical region, no acute intracranial hemorrhage - 02/13/2021- CTA head shows decreased attenuation along the posterior right frontal lobe, no CT evidence of significant stenosis involving proximal cerebral branches particularly the proximal right MCA - 02/13/21- CTA neck shows mild atherosclerotic calcification involving the proximal internal carotid arteries bilaterally without significant stenosis - MRI brain and MRA brain and neck pending - Per EMR intial NIH was 9 - Not candidate for any intervention- out of the time window - Aspirin, Plavix, & Lipitor ordered. - Prevent hypoperfusion, close monitor of blood pressure - Seizure precautions - PT/OT/ST eval - Neurology consulted, appreciate recommendations #CV: STEMI s/p PCI in RCA, h/o HTN #Rt. Ventricle Thrombus - 02/13/2021 Echo: EF 55%, mild concentric left ventricular Hypertrophy,suspected thrombus in right ventricle - Heparin protocol initiated, ok to transition to warfarin or NOAC on d/c - On Statin, beta-silas, Plavix and aspirin - 02/16 X1 dose rectal ASA- due to NPO status - SBP in the 110/120s. Prevent hypoperfusion, close monitoring of blood pressure- Goal SBP<160, Keep MAP>60 - proBNP:4086. 02/16Additional lasix today to optimize Respiratory status, However was D/C due to marginal BP concern for Hypoperfusion. Will reassess in the Am - Strict I&O #Respiratory: Acute hypoxic respiratory possibly due to COVID; COVID PUI - On heated high flow at 700% FiO2, 40L - Bilateral infiltrate appreciate from 02/16 CXR - 02/15 Elevated inflam. makers: DDimer>[id number], Ferrintin 837.7, LDH 766, CRP 21.50 - proBNP:4086. Additional lasix today to optimize Respiratory status, However was D/C due to marginal BP concern for Hypoperfusion. Will reassess in the Am - COVID swab pending - Continue to monitor SPO2 wean Bipap off to HFNC as tolerated for SPO2 above 88% - F/U chest Xray in the am - AM labs ordered - pulmo/CCM consulted, appreciate recommendations #GI: Dysphagia - Speech eval completed, pass swallow - Pureed diet with thin liquid order #: Acute kidney injury - improving - Initial cr. 1.5. Creatinine downtrending 1.1 today - No longer on IVFluid due to [place] infiltrate/fluif overload on CXR - proBNP:4086. Additional lasix today to optimize Respiratory status, However was D/C due to marginal BP concern for Hypoperfusion. Will reassess in the Am - Continue to monitor renal function. Am labs ordered - Consider nephrology consult if kidney function worsen - Strict I&Os, purewick in place #ID: acute sepsis 2/2 bilateral PNA, COVID PNA - 02/16 Bilateral infiltrate appreciate - TMAX 100.1, no leukocytosis WBC 8.1 - Elevated inflam. makers: DDimer>[id number], Ferrintin 837.7, LDH 766, CRP 21.50 - 02/16 COVID positive, 02/16 BcultX2 pending - Procal pending - Currently on ceftriaxone and azithromycin X5days - 02/17 added remdesevir per protocol - 02/17 IV decadron [id number] - Contact/droplet precautions - AM labs ordered, F/U CXR in the am #Heme: Anemia - Hgb 12.3, MCV 77, MCH 26 - On heparin gtt per protocol, ASA and plavix - Monitor for s/s of bleeding - Bilateral SCDs for VTE proph - Monitor H&H and plts. AM labs ordered #Endo: Hyperglycemia - Hemoglobin A1c pending - Persistent hyperglycemia high dose SSI - Lantus increased to 10 units SUBQ History Interval history: No new issues overnight Hospitalist Physical - Constitutional Vitals: Temp Pulse Resp BP Pulse Ox 98.4 F 85 18 161/100 94 02/24/21 05:55 02/24/21 05:55 02/24/21 05:55 02/24/21 05:55 02/24/21 05:55 General appearance: Present: mild distress, well-nourished - EENT Eyes: Present: PERRL, EOM intact ENT: hearing intact, clear oral mucosa, dentition normal - Neck Neck: Present: supple, normal ROM - Respiratory Respiratory effort: normal Respiratory: bilateral: CTA - Cardiovascular Rhythm: regular Heart Sounds: Present: S1 & S2. Absent: gallop, rub - Extremities Extremities: no ischemia, No edema, Full ROM - Abdominal General gastrointestinal: soft, non-tender, non-distended, normal bowel sounds - Integumentary Integumentary: Present: clear, warm, dry - Neurologic Neurologic: CNII-XII intact, moves all extremities HEART Score - HEART Score Troponin: Troponin T 0.992 ng/mL (0.00-0.029) H* 02/15/21 03:55 Results - Labs CBC & Chem 7: 02/24/21 05:42 02/22/21 15:12 Labs: Laboratory Last Values WBC 6.8 K/mm3 (4.5-11.0) 02/24/21 05:42 RBC 5.26 M/mm3 (3.65-5.03) H 02/24/21 05:42 Hgb 13.3 gm/dl (10.1-14.3) 02/24/21 05:42 Hct 40.2 % (30.3-42.9) 02/24/21 05:42 MCV 77 fl (79-97) L 02/24/21 05:42 MCH 25 pg (28-32) L 02/24/21 05:42 MCHC 33 % (30-34) 02/24/21 05:42 RDW 15.2 % (13.2-15.2) 02/24/21 05:42 Plt Count 231 K/mm3 (140-440) 02/24/21 05:42 Lymph % (Auto) 4.9 % (13.4-35.0) L 02/15/21 03:55 [place] % (Auto) 5.3 % (0.0-7.3) 02/15/21 03:55 Eos % (Auto) 0.5 % (0.0-4.3) 02/15/21 03:55 Baso % (Auto) 0.1 % (0.0-1.8) 02/15/21 03:55 Lymph # (Auto) 0.5 K/mm3 (1.2-5.4) L 02/15/21 03:55 [place] # (Auto) 0.5 K/mm3 (0.0-0.8) 02/15/21 03:55 Eos # (Auto) 0.1 K/mm3 (0.0-0.4) 02/15/21 03:55 Baso # (Auto) 0.0 K/mm3 (0.0-0.1) 02/15/21 03:55 Add Manual Diff Complete 02/20/21 06:39 Total Counted 100 02/20/21 06:39 Seg Neutrophils % 89.2 % (40.0-70.0) H 02/15/21 03:55 Seg Neuts % (Manual) 88.0 % (40.0-70.0) H 02/20/21 06:39 Lymphocytes % (Manual) 4.0 % (13.4-35.0) L 02/20/21 06:39 Reactive Lymphs % (Man) 2.0 % 02/20/21 06:39 Monocytes % (Manual) 3.0 % (0.0-7.3) 02/20/21 06:39 Eosinophils % (Manual) 1.0 % (0.0-4.3) 02/20/21 06:39 Myelocytes % 2.0 % 02/20/21 06:39 Nucleated RBC % Not Reportable 02/20/21 06:39 Seg Neutrophils # 8.4 K/mm3 (1.8-7.7) H 02/15/21 03:55 Seg Neutrophils # Man 5.5 K/mm3 (1.8-7.7) 02/20/21 06:39 Band Neutrophils # 0.0 K/mm3 02/20/21 06:39 Lymphocytes # (Manual) 0.2 K/mm3 (1.2-5.4) L 02/20/21 06:39 Abs React Lymphs (Man) 0.1 K/mm3 02/20/21 06:39 Monocytes # (Manual) 0.2 K/mm3 (0.0-0.8) 02/20/21 06:39 Eosinophils # (Manual) 0.1 K/mm3 (0.0-0.4) 02/20/21 06:39 Basophils # (Manual) 0.0 K/mm3 (0.0-0.1) 02/20/21 06:39 Metamyelocytes # 0.0 K/mm3 02/20/21 06:39 Myelocytes # 0.1 K/mm3 02/20/21 06:39 Promyelocytes # 0.0 K/mm3 02/20/21 06:39 Blast Cells # 0.0 K/mm3 02/20/21 06:39 WBC Morphology Not Reportable 02/20/21 06:39 Hypersegmented Neuts Not Reportable 02/20/21 06:39 Hyposegmented Neuts Not Reportable 02/20/21 06:39 Hypogranular Neuts Not Reportable 02/20/21 06:39 Smudge Cells Not Reportable 02/20/21 06:39 Toxic Granulation Not Reportable 02/20/21 06:39 Toxic Vacuolation Not Reportable 02/20/21 06:39 Dohle Bodies Not Reportable 02/20/21 06:39 Pelger-Huet Anomaly Not Reportable 02/20/21 06:39 Aba Rods Not Reportable 02/20/21 06:39 Platelet Estimate Consistent w auto 02/20/21 06:39 Clumped Platelets Not Reportable 02/20/21 06:39 Plt Clumps, EDTA Not Reportable 02/20/21 06:39 Large Platelets Not Reportable 02/20/21 06:39 Giant Platelets Not Reportable 02/20/21 06:39 Platelet Satelliting Not Reportable 02/20/21 06:39 Plt Morphology Comment Not Reportable 02/20/21 06:39 RBC Morphology Normal 02/20/21 06:39 Dimorphic RBCs Not Reportable 02/20/21 06:39 Polychromasia Not Reportable 02/20/21 06:39 Hypochromasia Not Reportable 02/20/21 06:39 Poikilocytosis Not Reportable 02/20/21 06:39 Anisocytosis Not Reportable 02/20/21 06:39 Microcytosis Not Reportable 02/20/21 06:39 Macrocytosis Not Reportable 02/20/21 06:39 Spherocytes Not Reportable 02/20/21 06:39 Pappenheimer Bodies Not Reportable 02/20/21 06:39 Sickle Cells Not Reportable 02/20/21 06:39 Target Cells Not Reportable 02/20/21 06:39 Tear Drop Cells Not Reportable 02/20/21 06:39 Ovalocytes Not Reportable 02/20/21 06:39 Helmet Cells Not Reportable 02/20/21 06:39 [place] Bodies Not Reportable 02/20/21 06:39 [place] Rings Not Reportable 02/20/21 06:39 Santana Cells Not Reportable 02/20/21 06:39 Bite Cells Not Reportable 02/20/21 06:39 Crenated Cell Not Reportable 02/20/21 06:39 Elliptocytes Not Reportable 02/20/21 06:39 Acanthocytes (Spur) Not Reportable 02/20/21 06:39 Rouleaux Not Reportable 02/20/21 06:39 Hemoglobin C Crystals Not Reportable 02/20/21 06:39 Schistocytes Not Reportable 02/20/21 06:39 Malaria parasites Not Reportable 02/20/21 06:39 Alberto Bodies Not Reportable 02/20/21 06:39 Hem Pathologist Commnt No 02/20/21 06:39 PT 14.1 Sec. (12.2-14.9) 02/22/21 15:12 INR 1.03 (0.87-1.13) 02/22/21 15:12 APTT 50.0 Sec. (24.2-36.6) H 02/22/21 15:12 Thrombin Time 17.2 Sec. (15.1-19.6) 02/14/21 20:21 D-Dimer 4275.78 ng/mlDDU (0-234) H 02/20/21 06:39 Heparin Anti-Xa Level 0.32 U.I./ml (0.3-0.7) 02/22/21 06:50 Sodium 144 mmol/L (137-145) 02/22/21 06:50 Potassium 3.5 mmol/L (3.6-5.0) L 02/22/21 06:50 Chloride 105.2 mmol/L (98-107) 02/22/21 06:50 Carbon Dioxide 31 mmol/L (22-30) H 02/22/21 06:50 Anion Gap 11 mmol/L 02/22/21 06:50 BUN 19 mg/dL (7-17) H 02/22/21 06:50 Creatinine 0.9 mg/dL (0.6-1.2) 02/22/21 15:12 Estimated GFR > 60 ml/min 02/22/21 15:12 BUN/Creatinine Ratio 24 % 02/22/21 06:50 Glucose 118 mg/dL (65-100) H 02/22/21 06:50 POC Glucose 118 mg/dL (70-105) H 02/24/21 07:45 Calcium 9.2 mg/dL (8.4-10.2) 02/22/21 06:50 Phosphorus 3.30 mg/dL (2.5-4.5) 02/22/21 06:50 Magnesium 1.80 mg/dL (1.7-2.3) 02/22/21 06:50 Ferritin 915.5 ng/mL (10.0-200.0) H 02/20/21 06:39 Total Bilirubin 0.30 mg/dL (0.1-1.2) 02/20/21 06:39 AST 36 units/L (5-40) 02/20/21 06:39 ALT 27 units/L (7-56) 02/20/21 06:39 Alkaline Phosphatase 74 units/L (35-129) 02/20/21 06:39 Lactate Dehydrogenase 645 units/L (91-180) H 02/20/21 06:39 Troponin T 0.992 ng/mL (0.00-0.029) H* 02/15/21 03:55 C-Reactive Protein 3.60 mg/dL (0.00-1.30) H 02/20/21 06:39 NT-Pro-B Natriuret Pep 4086 pg/mL (0-900) H 02/15/21 08:38 Total Protein 7.0 g/dL (6.3-8.2) 02/20/21 06:39 Albumin 3.1 g/dL (3.9-5) L 02/20/21 06:39 Albumin/Globulin Ratio 0.8 % 02/20/21 06:39 Triglycerides 292 mg/dL (2-149) H 02/14/21 20:21 Cholesterol 199 mg/dL (50-199) 02/14/21 20:21 LDL Cholesterol Direct 105 mg/dL (50-130) 02/14/21 20:21 HDL Cholesterol 23 mg/dL (40-59) L 02/14/21 20:21 Cholesterol/HDL Ratio 8.65 % 02/14/21 20:21 Procalcitonin 0.59 ng/mL (<0.15) 02/15/21 18:20 Coronavirus (PCR) Positive (Negative) A 02/16/21 Unknown Blood Type A POSITIVE 02/14/21 20:21 Antibody Screen Negative 02/14/21 20:21 Taylor/IV: Voiding Method External Female Catheter Active Medications - Current Medications Current Medications: Generic Name Dose Route Start Last Admin Trade Name Freq PRN Reason Stop Dose Admin Acetaminophen 650 mg 02/16/21 01:00 02/16/21 02:09 Acetaminophen 650 Mg Rect Supp VT 650 mg Q6H PRN Administration Pain, Mild (1-3) Hydrocodone Bitart/Acetaminophen 1 each 02/14/21 21:57 02/20/21 18:16 Hydrocodone/Acetaminophen 5-325 Mg Tab PO 1 each Q6H PRN Administration Pain, Moderate (4-6) Albuterol 2.5 mg 02/14/21 21:54 Albuterol 2.5 Mg/3 Ml Nebu IH Q4HRT PRN Shortness Of Breath Lipase/Protease/Amylase 1 each 02/17/21 12:34 Lipase 10,500/Protease 25,000/Amylase 43,750 (Units) Dr Betts FEEDTRANDELL PRN PRN For Clogged Feeding Tube Apixaban 2.5 mg 02/22/21 22:00 02/23/21 21:27 Apixaban 2.5 Mg Tab PO 2.5 mg Q12HR KARYN Administration Protocol Aspirin 81 mg 02/16/21 12:00 02/23/21 10:42 Aspirin 81 Mg Tab Chew PO 81 mg QDAY KARYN Administration Atorvastatin Calcium 80 mg 02/15/21 22:00 02/23/21 21:36 Atorvastatin 40 Mg Tab PO 80 mg QHS KARYN Administration Clopidogrel Bisulfate 75 mg 02/15/21 10:00 02/23/21 10:43 Clopidogrel 75 Mg Tab PO 75 mg QDAY KARYN Administration Dexamethasone 10 mg 02/17/21 10:00 02/23/21 10:41 Dexamethasone 4 Mg/Ml Vial IV 02/26/21 10:01 10 mg Q24HR KARYN Administration Dextrose 0 ml 02/14/21 21:54 Dextrose 50% In Water (25gm) 50 Ml Syringe IV Q30MIN PRN Hypoglycemia Protocol Docusate Sodium 100 mg 02/14/21 22:04 02/22/21 09:15 Docusate Sodium 100 Mg Cap PO 100 mg DAILY PRN Administration Constip unreliev by MOM/or NPO Famotidine 20 mg 02/21/21 10:00 02/23/21 21:38 Famotidine 20 Mg Tab PO 20 mg BID KARYN Administration Ferrous Sulfate 300 mg 02/21/21 22:00 02/23/21 21:28 Ferrous Sulfate 300 Mg (60mg Elemental Iron) / 5 Ml Oral Liqd FEEDTUBE 300 mg BID KARYN Administration Hydromorphone HCl 0.5 mg 02/14/21 21:54 02/18/21 22:00 Hydromorphone 1 Mg/1 Ml Inj IV 0.5 mg Q3H PRN Administration Pain , Severe (7-10) Hydrophilic Ointment 1 applic 02/20/21 09:00 Lip Therapy Vaseline TP DIRECT PRN Dry Lips Insulin Glargine 10 units 02/17/21 22:00 02/23/21 21:35 Insulin Glargine 100 Units/Ml SUB-Q 10 units QHS KARYN Administration Insulin Human Lispro 0 unit 02/17/21 22:00 02/24/21 07:54 Insulin Lispro 100 Unit/Ml SUB-Q Not Given [facility] Protocol Insulin Human Regular 7 units 02/22/21 16:30 02/24/21 07:58 Insulin Regular, Human 100 Units/1 Ml SUB-Q 7 units [facility] Administration Melatonin 5 mg 02/16/21 17:53 02/17/21 21:39 Melatonin 5 Mg Tab PO 5 mg QHS PRN Administration Sleep Metoprolol Tartrate 50 mg 02/19/21 22:00 02/23/21 21:36 Metoprolol Tartrate 50 Mg Tab PO 50 mg BID KARYN Administration Morphine Sulfate 2 mg 02/14/21 21:54 Morphine 2 Mg/1 Ml Inj IV Q4H PRN Pain, Moderate (4-6) Ondansetron HCl 4 mg 02/14/21 21:54 02/17/21 21:38 Ondansetron 4 Mg/2 Ml Inj IV 4 mg Q8H PRN Administration Nausea And Vomiting Simple Syrup 15 ml 02/17/21 12:34 Simple Syrup 15 Ml FEEDTUBE PRN PRN Hypoglycemia Simple Syrup 30 ml 02/17/21 12:34 Simple Syrup 15 Ml FEEDTUBE PRN PRN Hypoglycemia Sodium Bicarbonate 325 mg 02/17/21 12:34 Sodium Bicarbonate 325 Mg Tab FEEDTUBE PRN PRN For Clogged Feeding Tube Sodium Chloride 10 ml 02/14/21 22:00 02/23/21 21:39 Sodium Chloride 0.9% 10 Ml Flush Syringe IV 10 ml BID KARYN Administration Sodium Chloride 10 ml 02/14/21 21:54 Sodium Chloride 0.9% 10 Ml Flush Syringe IV PRN PRN LINE FLUSH Nutrition/Malnutrition Assess - Dietary Evaluation Nutrition/Malnutrition Findings: Nutrition Notes Start: 02/15/21 12:03 Freq: Status: Active Protocol: Document 02/20/21 16:12 GB (Rec: 02/20/21 16:21 GB [id number]) Nutrition Notes Initial or Follow up Reassessment Current Diagnosis Diabetes,Hypertension, Respiratory Failure,Stroke Other Pertinent Diagnosis hyperglycemia, STEMI Current Diet Mechanical soft, thni liquids Labs/Tests 02/20: Na 151, BUN 23, glucose 140, ferritin 915.3 Pertinent Medications ferrous sulfate, NaCl/Hep, NaCl, remdesivir Height 5 ft 4 in Weight 104.3 kg [place] Body Weight (kg) 54.54 BMI 39.4 Weight change and time frame no significant changes at this time Weight Status Obese Subjective/Other Information per MD ntoes 02/20: FELIZ d/c 02/19 . [employer] eval advanced diet texture to mechanical soft thin liquids. PO recorded 25% x 1 meal. Adding glucerna BID for additional calories/ protein while po intake recovers. Percent of energy/protein needs met: PO intake of meals and supplement 50% or greater will meet 75% or greater of estimated energy needs. Burn Absent Trauma Absent GI Symptoms None Difficulty In Swallowing Food Allergy No Current % PO Poor (25-49%) Minimum of two criteria No #2 Nutrition Diagnosis Inadequate energy intake Etiology DM, collapse As Evidenced by Signs and Symptoms Recent advancement to PO intake with mechanically altered texture diet, FELIZ d/c , need for nutritional supplement beverage to meet estimated energy needs. #1 Nutrition Diagnosis Other: (Specify in comment below) Comments: Comprimised PO intake, dependency for enteral feed to meet nutrition needs Etiology DM, collapse, As Evidenced by Signs and Symptoms not able to eat PO at this time, MD order for TF Diagnosis Progress(for reassessment Resolved documentation) Is patient on ventilator? No Is Patient Ambulatory and/or Out of Bed Yes REE-([facility]-ambulatory/OOB) [ 2103.400 [id number]] Kcal/Kg value to use for calculation 17 Approximate Energy Requirements Using 1773 kcal/Kg Calculation Used for Recommendations Kcal/kg Additional Notes Protein: 0.7-1 g/kg @ 104k-104g Fluids: 1 ml/kcal or per MD Nutrition Intervention Change Diet Order: Continue with current diet advancing texture per [employer] Nutrition Support: n/a Add Supplement/Snack (indicate name/kcal glucerna BID /protein ) Provides kCal: 440 Provides Protein (gm) 20 Goal #1 PO intake of meals to improve to 50% or greater during LOS Goal #2 weight to maintain within -3% current weight for LOS Goal #3 PO intake of nutritional supplement beverage to be 50% or greater BID daily during LOS Follow-Up By: 02/27/21 Additional Comments Follow PO intake of meals/ supplements
--- NOTE | 2021-02-24 10:24 | Progress Note ---
Assessment and Plan - Patient Problems (1) STEMI (ST elevation myocardial infarction) Current Visit: Yes Status: Acute Plan to address problem: Status post thromboembolic inferior myocardial infarction treated with primary angioplasty and drug-eluting stenting. (2) Venous thromboembolism Current Visit: Yes Status: Acute Plan to address problem: Right ventricular thrombus in transition, on triple therapy with baby aspirin, Plavix, Eliquis. Subjective Date of service: 02/24/21 Principal diagnosis: CVA with left side weakness ,elevated inflammatory markers Interval history: Patient appears lethargic, but no chest pain and no acute cardiac complaints. Objective Vital Signs Temp Pulse Resp BP Pulse Ox 02/24/21 05:55 98.4 F 85 18 161/100 94 02/24/21 00:12 99.0 F 92 H 24 133/98 96 02/23/21 22:00 96 02/23/21 21:04 97 02/23/21 15:50 79 97 02/23/21 14:06 90 02/23/21 10:43 89 90 02/23/21 10:33 94 H 94 02/23/21 10:32 98.8 F 92 H 19 134/71 95 - Physical Examination Narrative exam: Full physical exam is deferred due to acute Covid pneumonia. General: No Apparent Distress HEENT: Positive: PERRL Neck: Positive: trachea midline Neuro: Positive: Grossly Intact Abdomen: Positive: Unremarkable Extremities: Absent: edema - Labs and Meds CBC 02/24/21 Range/Units 05:42 WBC 6.8 (4.5-11.0) K/mm3 RBC 5.26 H (3.65-5.03) M/mm3 Hgb 13.3 (10.1-14.3) gm/dl Hct 40.2 (30.3-42.9) % Plt Count 231 (140-440) K/mm3 - Imaging and Cardiology Echo: other (02/14/2021 Echo - Normal LV and RV systolic function, thrombus in RV)
--- NOTE | 2021-02-24 10:27 | Progress Note ---
Assessment and Plan 55 y/o female with STEMI and acute respiratory failure 02/24/21: Lasix today. Will ask RT about maybe trying a salter. K not checked today but will defer to primary on follow up. Continue steroids. Guarded prognosis. 02/23/21: Supportive care. Guarded prognosis. 02/22/21: CXR is unchanged. EF is 55%. Will speak with RT about the acute change from 50-100%. Hold on lasix today given K of 3.5 but would benefit from again. Guarded prognosis. 02/21/21: Will order CXR for today for review. Follow up echo results. hold on lasix until those results are back. Wean FiO2 for sats >88%. Will speak with RT about more detailed documentation to explain significant increases in oxygen requirement. 02/20/21: Wean for sats >88%. Steroids and Remdesivir. Will hold on lasix today although it did not make sodium worse so could consider repeat dosing. Guarded prognosis. 02/19/21: continue to wean for sats >88%. Steroids and remdesivir. Feel patient is stable enough to go to COVID floor or at least Step down. Needs more free water. Patient is taking po so can be given this way. Did give lasix x1 today to help with volume given I/O record. May make Na worse. 02/18/21: WEan FiO2 and flow for sats >88%. Continue therapy for COVID. Guideline therapy for CAD. Guarded prognosis. 02/17/21: Suspect family knew patient was COVID positive and did not tell us. 48 hours now behind on starting therapy, maybe longer. Agree with steroids. Will ask ID about Remdesivir and Actemra. Monitor fluids, BNP was still elev ated despite normal EF. Wean FiO2 as tolerated and need to have patient manually prone. Follow up neurology recs as well as ID. Guarded prognosis. 02/16/21: Responded well to diuresis, will give more lasix today. Going for MRI today. Spoke with downstairs who is upset about lack of visitation. he also states that he has a neurologist who is willing to accept the patient to [facility] but he refused to give me the name of the physician. Will continue supportive measures. 1. Pulm- CXR appears to be more consistent with pulmonary edema and BNP is 4k. Stopped IVF's. Attempted to take of bipap but desats on cannula. Awake and tachypnic. Will give lasix 20mg IV x1 now to see if this helps with oxygen requirement. DO not feel this is infection. 2. Cards-STemi, goal directed therapy and follow up echo, done but not read yet. 3. Endo-elevated blood sugar likely related to acute mI, although patient could have underlying disease given age and weight, suggest checking A1C. 4. Guarded prognosis Subjective Date of service: 02/24/21 Principal diagnosis: CVA with left side weakness ,elevated inflammatory markers Interval history: Still on HFNC but sats are good and requirement is minimum. Objective Vital Signs - 12hr 02/24/21 02/24/21 00:12 05:55 Temperature 99.0 F 98.4 F Pulse Rate 92 H 85 Respiratory 24 18 Rate Blood Pressure 133/98 161/100 O2 Sat by Pulse 96 94 Oximetry Gastrointestinal: normoactive bowel sounds Integumentary: normal CBC and BMP: 02/24/21 05:42 02/22/21 15:12 ABG, PT/INR, D-dimer: PT/INR, D-dimer PT 14.1 Sec. (12.2-14.9) 02/22/21 15:12 INR 1.03 (0.87-1.13) 02/22/21 15:12 D-Dimer 4275.78 ng/mlDDU (0-234) H 02/20/21 06:39 Abnormal lab findings: Abnormal Labs 02/14/21 02/14/21 02/14/21 20:21 20:21 20:21 WBC 15.6 H RBC 5.55 H Hct 43.3 H MCV 78 L MCH 26 L MCHC RDW 16.3 H Lymph % (Auto) Lymph # (Auto) Seg Neutrophils % Seg Neuts % (Manual) 96.0 H Lymphocytes % (Manual) 3.0 L Seg Neutrophils # Seg Neutrophils # Man 15.0 H Lymphocytes # (Manual) 0.5 L PT 16.7 H INR 1.30 H APTT D-Dimer Heparin Anti-Xa Level Sodium 131 L Potassium 5.1 H Chloride 88.4 L Carbon Dioxide 20 L BUN 34 H Creatinine 1.5 H Glucose 574 H* POC Glucose Magnesium Ferritin AST Lactate Dehydrogenase Troponin T 0.882 H* C-Reactive Protein NT-Pro-B Natriuret Pep Albumin Triglycerides 292 H HDL Cholesterol 23 L Coronavirus (PCR) 02/14/21 02/14/21 02/14/21 20:21 23:11 23:20 WBC RBC Hct MCV MCH MCHC RDW Lymph % (Auto) Lymph # (Auto) Seg Neutrophils % Seg Neuts % (Manual) Lymphocytes % (Manual) Seg Neutrophils # Seg Neutrophils # Man Lymphocytes # (Manual) PT INR APTT D-Dimer Heparin Anti-Xa Level Sodium Potassium Chloride Carbon Dioxide BUN Creatinine Glucose POC Glucose 562 H 422 H Magnesium Ferritin AST Lactate Dehydrogenase Troponin T 0.892 H* C-Reactive Protein NT-Pro-B Natriuret Pep Albumin Triglycerides HDL Cholesterol Coronavirus (PCR) 02/15/21 02/15/21 02/15/21 03:55 03:55 05:29 WBC RBC 5.17 H Hct MCV 77 L MCH 26 L MCHC RDW 15.8 H Lymph % (Auto) 4.9 L Lymph # (Auto) 0.5 L Seg Neutrophils % 89.2 H Seg Neuts % (Manual) Lymphocytes % (Manual) Seg Neutrophils # 8.4 H Seg Neutrophils # Man Lymphocytes # (Manual) PT INR APTT D-Dimer Heparin Anti-Xa Level Sodium 136 L Potassium Chloride 97.3 L Carbon Dioxide 18 L BUN 33 H Creatinine Glucose 402 H POC Glucose 345 H Magnesium Ferritin AST 46 H Lactate Dehydrogenase Troponin T 0.992 H* C-Reactive Protein NT-Pro-B Natriuret Pep Albumin 3.0 L Triglycerides HDL Cholesterol Coronavirus (PCR) 02/15/21 02/15/21 02/15/21 08:38 08:38 08:38 WBC RBC Hct MCV 75 L MCH 26 L MCHC 35 H RDW 16.2 H Lymph % (Auto) Lymph # (Auto) Seg Neutrophils % Seg Neuts % (Manual) Lymphocytes % (Manual) Seg Neutrophils # Seg Neutrophils # Man Lymphocytes # (Manual) PT INR APTT D-Dimer Heparin Anti-Xa Level Sodium 135 L Potassium Chloride Carbon Dioxide 19 L BUN 31 H Creatinine Glucose 360 H POC Glucose Magnesium 2.50 H Ferritin AST Lactate Dehydrogenase Troponin T C-Reactive Protein NT-Pro-B Natriuret Pep 4086 H Albumin Triglycerides HDL Cholesterol Coronavirus (PCR) 09/22/21 09/22/21 09/22/21 11:15 17:28 18:20 WBC RBC Hct MCV MCH MCHC RDW Lymph % (Auto) Lymph # (Auto) Seg Neutrophils % Seg Neuts % (Manual) Lymphocytes % (Manual) Seg Neutrophils # Seg Neutrophils # Man Lymphocytes # (Manual) PT INR APTT D-Dimer > 99459 H Heparin Anti-Xa Level Sodium Potassium Chloride Carbon Dioxide BUN Creatinine Glucose POC Glucose 317 H 311 H Magnesium Ferritin AST Lactate Dehydrogenase Troponin T C-Reactive Protein NT-Pro-B Natriuret Pep Albumin Triglycerides HDL Cholesterol Coronavirus (PCR) 02/15/21 02/15/21 02/15/21 18:20 18:20 18:20 WBC RBC Hct MCV MCH MCHC RDW Lymph % (Auto) Lymph # (Auto) Seg Neutrophils % Seg Neuts % (Manual) Lymphocytes % (Manual) Seg Neutrophils # Seg Neutrophils # Man Lymphocytes # (Manual) PT 15.8 H INR 1.20 H APTT D-Dimer Heparin Anti-Xa Level Sodium Potassium Chloride Carbon Dioxide BUN Creatinine Glucose POC Glucose Magnesium Ferritin 837.7 H AST Lactate Dehydrogenase 766 H Troponin T C-Reactive Protein 21.50 H NT-Pro-B Natriuret Pep Albumin Triglycerides HDL Cholesterol Coronavirus (PCR) 02/15/21 02/16/21 02/16/21 23:45 02:44 02:44 WBC RBC Hct MCV 77 L MCH 26 L MCHC RDW 16.0 H Lymph % (Auto) Lymph # (Auto) Seg Neutrophils % Seg Neuts % (Manual) Lymphocytes % (Manual) Seg Neutrophils # Seg Neutrophils # Man Lymphocytes # (Manual) PT INR APTT D-Dimer Heparin Anti-Xa Level Sodium Potassium Chloride Carbon Dioxide BUN 27 H Creatinine Glucose 269 H POC Glucose 203 H Magnesium Ferritin AST Lactate Dehydrogenase Troponin T C-Reactive Protein NT-Pro-B Natriuret Pep Albumin Triglycerides HDL Cholesterol Coronavirus (PCR) 02/16/21 02/16/21 02/16/21 05:47 11:50 15:00 WBC RBC Hct MCV MCH MCHC RDW Lymph % (Auto) Lymph # (Auto) Seg Neutrophils % Seg Neuts % (Manual) Lymphocytes % (Manual) Seg Neutrophils # Seg Neutrophils # Man Lymphocytes # (Manual) PT INR APTT D-Dimer Heparin Anti-Xa Level < 0.10 L Sodium Potassium Chloride Carbon Dioxide BUN Creatinine Glucose POC Glucose 275 H 251 H Magnesium Ferritin AST Lactate Dehydrogenase Troponin T C-Reactive Protein NT-Pro-B Natriuret Pep Albumin Triglycerides HDL Cholesterol Coronavirus (PCR) 02/16/21 02/16/21 02/16/21 18:23 23:30 23:57 WBC RBC Hct MCV MCH MCHC RDW Lymph % (Auto) Lymph # (Auto) Seg Neutrophils % Seg Neuts % (Manual) Lymphocytes % (Manual) Seg Neutrophils # Seg Neutrophils # Man Lymphocytes # (Manual) PT INR APTT D-Dimer Heparin Anti-Xa Level < 0.10 L Sodium Potassium Chloride Carbon Dioxide BUN Creatinine Glucose POC Glucose 237 H 249 H Magnesium Ferritin AST Lactate Dehydrogenase Troponin T C-Reactive Protein NT-Pro-B Natriuret Pep Albumin Triglycerides HDL Cholesterol Coronavirus (PCR) 02/16/21 02/17/21 02/17/21 Unknown 05:25 06:18 WBC RBC Hct MCV MCH MCHC RDW Lymph % (Auto) Lymph # (Auto) Seg Neutrophils % Seg Neuts % (Manual) Lymphocytes % (Manual) Seg Neutrophils # Seg Neutrophils # Man Lymphocytes # (Manual) PT INR APTT D-Dimer Heparin Anti-Xa Level Sodium Potassium Chloride Carbon Dioxide BUN Creatinine Glucose POC Glucose 238 H 229 H Magnesium Ferritin AST Lactate Dehydrogenase Troponin T C-Reactive Protein NT-Pro-B Natriuret Pep Albumin Triglycerides HDL Cholesterol Coronavirus (PCR) Positive A 02/17/21 02/17/21 02/17/21 11:35 13:30 13:30 WBC RBC Hct MCV MCH MCHC RDW Lymph % (Auto) Lymph # (Auto) Seg Neutrophils % Seg Neuts % (Manual) Lymphocytes % (Manual) Seg Neutrophils # Seg Neutrophils # Man Lymphocytes # (Manual) PT INR APTT D-Dimer Heparin Anti-Xa Level 0.29 L Sodium 146 H D Potassium Chloride 107.3 H Carbon Dioxide BUN 29 H Creatinine Glucose 334 H POC Glucose 279 H Magnesium Ferritin AST Lactate Dehydrogenase Troponin T C-Reactive Protein NT-Pro-B Natriuret Pep Albumin Triglycerides HDL Cholesterol Coronavirus (PCR) 02/17/21 02/17/21 02/17/21 13:30 13:30 16:42 WBC RBC Hct MCV 77 L MCH 25 L MCHC RDW 16.1 H Lymph % (Auto) Lymph # (Auto) Seg Neutrophils % Seg Neuts % (Manual) Lymphocytes % (Manual) Seg Neutrophils # Seg Neutrophils # Man Lymphocytes # (Manual) PT INR APTT D-Dimer Heparin Anti-Xa Level Sodium 146 H Potassium Chloride Carbon Dioxide BUN 29 H Creatinine Glucose 340 H POC Glucose 291 H Magnesium Ferritin AST Lactate Dehydrogenase Troponin T C-Reactive Protein NT-Pro-B Natriuret Pep Albumin 2.7 L Triglycerides HDL Cholesterol Coronavirus (PCR) 02/17/21 02/18/21 02/18/21 21:43 04:40 04:40 WBC RBC Hct MCV 78 L MCH 26 L MCHC RDW 16.3 H Lymph % (Auto) Lymph # (Auto) Seg Neutrophils % Seg Neuts % (Manual) Lymphocytes % (Manual) Seg Neutrophils # Seg Neutrophils # Man Lymphocytes # (Manual) PT INR APTT D-Dimer Heparin Anti-Xa Level Sodium 149 H Potassium Chloride 108.9 H Carbon Dioxide BUN 34 H Creatinine Glucose 318 H POC Glucose 288 H Magnesium Ferritin AST Lactate Dehydrogenase Troponin T C-Reactive Protein 14.50 H NT-Pro-B Natriuret Pep Albumin 3.0 L Triglycerides HDL Cholesterol Coronavirus (PCR) 02/18/21 02/18/21 02/18/21 04:40 08:02 11:30 WBC RBC Hct MCV MCH MCHC RDW Lymph % (Auto) Lymph # (Auto) Seg Neutrophils % Seg Neuts % (Manual) Lymphocytes % (Manual) Seg Neutrophils # Seg Neutrophils # Man Lymphocytes # (Manual) PT INR APTT D-Dimer 3846.94 H Heparin Anti-Xa Level Sodium Potassium Chloride Carbon Dioxide BUN Creatinine Glucose POC Glucose 263 H 309 H Magnesium Ferritin AST Lactate Dehydrogenase Troponin T C-Reactive Protein NT-Pro-B Natriuret Pep Albumin Triglycerides HDL Cholesterol Coronavirus (PCR) 02/18/21 02/18/21 02/18/21 12:29 21:56 22:34 WBC RBC Hct MCV MCH MCHC RDW Lymph % (Auto) Lymph # (Auto) Seg Neutrophils % Seg Neuts % (Manual) Lymphocytes % (Manual) Seg Neutrophils # Seg Neutrophils # Man Lymphocytes # (Manual) PT INR APTT D-Dimer Heparin Anti-Xa Level 0.29 L Sodium Potassium Chloride Carbon Dioxide BUN Creatinine Glucose POC Glucose 313 H 284 H Magnesium Ferritin AST Lactate Dehydrogenase Troponin T C-Reactive Protein NT-Pro-B Natriuret Pep Albumin Triglycerides HDL Cholesterol Coronavirus (PCR) 02/18/21 02/19/21 02/19/21 23:52 06:11 07:54 WBC RBC Hct MCV MCH MCHC RDW Lymph % (Auto) Lymph # (Auto) Seg Neutrophils % Seg Neuts % (Manual) Lymphocytes % (Manual) Seg Neutrophils # Seg Neutrophils # Man Lymphocytes # (Manual) PT INR APTT D-Dimer Heparin Anti-Xa Level Sodium 151 H Potassium Chloride 110.6 H Carbon Dioxide BUN 28 H Creatinine Glucose 191 H POC Glucose 272 H 155 H Magnesium Ferritin AST Lactate Dehydrogenase Troponin T C-Reactive Protein NT-Pro-B Natriuret Pep Albumin 3.0 L Triglycerides HDL Cholesterol Coronavirus (PCR) 02/19/21 02/19/21 02/19/21 12:37 16:29 21:28 WBC RBC Hct MCV MCH MCHC RDW Lymph % (Auto) Lymph # (Auto) Seg Neutrophils % Seg Neuts % (Manual) Lymphocytes % (Manual) Seg Neutrophils # Seg Neutrophils # Man Lymphocytes # (Manual) PT INR APTT D-Dimer Heparin Anti-Xa Level Sodium Potassium Chloride Carbon Dioxide BUN Creatinine Glucose POC Glucose 233 H 268 H 298 H Magnesium Ferritin AST Lactate Dehydrogenase Troponin T C-Reactive Protein NT-Pro-B Natriuret Pep Albumin Triglycerides HDL Cholesterol Coronavirus (PCR) 02/19/21 02/20/21 02/20/21 23:34 06:39 06:39 WBC RBC 5.08 H Hct MCV 77 L MCH 25 L MCHC RDW 16.0 H Lymph % (Auto) Lymph # (Auto) Seg Neutrophils % Seg Neuts % (Manual) 88.0 H Lymphocytes % (Manual) 4.0 L Seg Neutrophils # Seg Neutrophils # Man Lymphocytes # (Manual) 0.2 L PT INR APTT D-Dimer 4275.78 H Heparin Anti-Xa Level 0.26 L Sodium Potassium Chloride Carbon Dioxide BUN Creatinine Glucose POC Glucose Magnesium Ferritin AST Lactate Dehydrogenase Troponin T C-Reactive Protein NT-Pro-B Natriuret Pep Albumin Triglycerides HDL Cholesterol Coronavirus (PCR) 02/20/21 02/20/21 02/20/21 06:39 06:39 08:45 WBC RBC Hct MCV MCH MCHC RDW Lymph % (Auto) Lymph # (Auto) Seg Neutrophils % Seg Neuts % (Manual) Lymphocytes % (Manual) Seg Neutrophils # Seg Neutrophils # Man Lymphocytes # (Manual) PT INR APTT D-Dimer Heparin Anti-Xa Level Sodium 152 H 151 H Potassium Chloride 112.0 H 111.4 H Carbon Dioxide 31 H BUN 23 H 23 H Creatinine Glucose 119 H 140 H POC Glucose Magnesium Ferritin 915.5 H AST Lactate Dehydrogenase 645 H Troponin T C-Reactive Protein 3.60 H NT-Pro-B Natriuret Pep Albumin 3.1 L Triglycerides HDL Cholesterol Coronavirus (PCR) 02/20/21 02/20/21 02/20/21 11:57 18:01 22:20 WBC RBC Hct MCV MCH MCHC RDW Lymph % (Auto) Lymph # (Auto) Seg Neutrophils % Seg Neuts % (Manual) Lymphocytes % (Manual) Seg Neutrophils # Seg Neutrophils # Man Lymphocytes # (Manual) PT INR APTT D-Dimer Heparin Anti-Xa Level Sodium Potassium Chloride Carbon Dioxide BUN Creatinine Glucose POC Glucose 217 H 337 H 379 H Magnesium Ferritin AST Lactate Dehydrogenase Troponin T C-Reactive Protein NT-Pro-B Natriuret Pep Albumin Triglycerides HDL Cholesterol Coronavirus (PCR) 02/21/21 02/21/21 02/21/21 07:43 11:42 16:30 WBC RBC Hct MCV MCH MCHC RDW Lymph % (Auto) Lymph # (Auto) Seg Neutrophils % Seg Neuts % (Manual) Lymphocytes % (Manual) Seg Neutrophils # Seg Neutrophils # Man Lymphocytes # (Manual) PT INR APTT D-Dimer Heparin Anti-Xa Level Sodium Potassium Chloride Carbon Dioxide BUN Creatinine Glucose POC Glucose 152 H 206 H 235 H Magnesium Ferritin AST Lactate Dehydrogenase Troponin T C-Reactive Protein NT-Pro-B Natriuret Pep Albumin Triglycerides HDL Cholesterol Coronavirus (PCR) 02/21/21 02/22/21 02/22/21 21:56 05:51 06:50 WBC RBC Hct MCV MCH MCHC RDW Lymph % (Auto) Lymph # (Auto) Seg Neutrophils % Seg Neuts % (Manual) Lymphocytes % (Manual) Seg Neutrophils # Seg Neutrophils # Man Lymphocytes # (Manual) PT INR APTT D-Dimer Heparin Anti-Xa Level Sodium Potassium 3.5 L Chloride Carbon Dioxide 31 H BUN 19 H Creatinine Glucose 118 H POC Glucose 205 H 121 H Magnesium Ferritin AST Lactate Dehydrogenase Troponin T C-Reactive Protein NT-Pro-B Natriuret Pep Albumin Triglycerides HDL Cholesterol Coronavirus (PCR) 02/22/21 02/22/21 02/22/21 07:55 11:47 15:12 WBC RBC Hct MCV 76 L MCH 26 L MCHC RDW Lymph % (Auto) Lymph # (Auto) Seg Neutrophils % Seg Neuts % (Manual) Lymphocytes % (Manual) Seg Neutrophils # Seg Neutrophils # Man Lymphocytes # (Manual) PT INR APTT D-Dimer Heparin Anti-Xa Level Sodium Potassium Chloride Carbon Dioxide BUN Creatinine Glucose POC Glucose 148 H 216 H Magnesium Ferritin AST Lactate Dehydrogenase Troponin T C-Reactive Protein NT-Pro-B Natriuret Pep Albumin Triglycerides HDL Cholesterol Coronavirus (PCR) 02/22/21 02/22/21 02/22/21 15:12 17:55 22:01 WBC RBC Hct MCV MCH MCHC RDW Lymph % (Auto) Lymph # (Auto) Seg Neutrophils % Seg Neuts % (Manual) Lymphocytes % (Manual) Seg Neutrophils # Seg Neutrophils # Man Lymphocytes # (Manual) PT INR APTT 50.0 H D-Dimer Heparin Anti-Xa Level Sodium Potassium Chloride Carbon Dioxide BUN Creatinine Glucose POC Glucose 327 H 173 H Magnesium Ferritin AST Lactate Dehydrogenase Troponin T C-Reactive Protein NT-Pro-B Natriuret Pep Albumin Triglycerides HDL Cholesterol Coronavirus (PCR) 02/23/21 02/23/21 02/23/21 07:36 10:32 15:49 WBC RBC Hct MCV MCH MCHC RDW Lymph % (Auto) Lymph # (Auto) Seg Neutrophils % Seg Neuts % (Manual) Lymphocytes % (Manual) Seg Neutrophils # Seg Neutrophils # Man Lymphocytes # (Manual) PT INR APTT D-Dimer Heparin Anti-Xa Level Sodium Potassium Chloride Carbon Dioxide BUN Creatinine Glucose POC Glucose 149 H 240 H 338 H Magnesium Ferritin AST Lactate Dehydrogenase Troponin T C-Reactive Protein NT-Pro-B Natriuret Pep Albumin Triglycerides HDL Cholesterol Coronavirus (PCR) 02/23/21 02/24/21 02/24/21 21:20 05:42 07:45 WBC RBC 5.26 H Hct MCV 77 L MCH 25 L MCHC RDW Lymph % (Auto) Lymph # (Auto) Seg Neutrophils % Seg Neuts % (Manual) Lymphocytes % (Manual) Seg Neutrophils # Seg Neutrophils # Man Lymphocytes # (Manual) PT INR APTT D-Dimer Heparin Anti-Xa Level Sodium Potassium Chloride Carbon Dioxide BUN Creatinine Glucose POC Glucose 311 H 118 H Magnesium Ferritin AST Lactate Dehydrogenase Troponin T C-Reactive Protein NT-Pro-B Natriuret Pep Albumin Triglycerides HDL Cholesterol Coronavirus (PCR)
[2021-02-24] MEDS ORDERED: FUROSEMIDE 40 MG/4 ML INJ IV NR (11:00)
[2021-02-24] MEDS: dexAMETHasone 4 MG/ML VIAL IV SCH (11:19)
[2021-02-24] MEDS: APIXABAN 2.5 MG TAB PO SCH ×2 (11:19→23:25)
[2021-02-24] MEDS: FERROUS SULFATE 300 MG (60MG Elemental Iron) / 5 mL ORAL LIQD FEEDTUBE SCH ×2 (11:19→23:24)
[2021-02-24] MEDS: FAMOTIDINE 20 MG TAB PO SCH ×2 (11:20→23:25)
[2021-02-24] MEDS: METOPROLOL TARTRATE 50 MG TAB PO SCH ×2 (11:21→23:26)
[2021-02-24] MEDS: CLOPIDOGREL 75 MG TAB PO SCH (11:21)
[2021-02-24] MEDS: ASPIRIN 81 MG TAB CHEW PO SCH (11:21)
--- NOTE | 2021-02-24 11:52 | Progress Note ---
Assessment and Plan Cultures: 02/16/2021 blood culture: no growth SARS CoV2 PCR positive Assessment: 55-year-old female with history of diabetes mellitus, admitted on 02/14/2021 secondary to left-sided weakness, left facial droop and dysarthria for unknown amount of time likely 12-24h with a previous 2-week history of flulike symptoms: #Acute sepsis: likely secondary to bilateral pneumonia +/- STEMI +/- CVA. #Bilateral pneumonia: secondary to COVID. CXR with bilateral pneumonia. Initial labs: CRP 21.5, ferritin 837, LDH 766, D-dimer > 10K. Received Actemra on 02/17/2021. Procal moderately elevated, completed ceftriaxone and azithromycin course, completed remdesivir. On steroids. #Acute hypoxemic respiratory failure: requiring BiPAP/HFNC #Elevated LFTs: from sepsis/COVID #ADAM: resolved. #STEMI: s/p heart cath with stent placement in the RCA. #Possible CVA: Patient was out of window of TPA per neuro. Recommendations: -s/p Actemra on 02/17/2021 -s/p remdesivir -continue dexamethasone IV/PO daily for 10-14 days, benefit beyond that is unclear and increases risk of nosocomial infections especially given Actemra use -guarded prognosis ID will sign off. Please reconsult as needed Simin Engel MD, FACP [facility] ([facility] O: [phone] F: [phone] Subjective Date of service: 02/24/21 Principal diagnosis: CVA with left side weakness ,elevated inflammatory markers Interval history: Afebrile. Remains on high flow nasal cannula. Objective - Exam Narrative Exam: Physical Exam (reviewed in chart to minimize risk of transmission) Constitutional: deferred Head, Ears, Nose: deferred Eyes: deferred Neck: deferred Oral: deferred Cardiovascular: deferred Respiratory: deferred GI: deferred Musculoskeletal: deferred Skin: deferred Hem/Lymphatic: deferred Psych: deferred Neurological: deferred - Constitutional Vitals: Vital Signs Temp Pulse Resp BP Pulse Ox 98.4 F 85 18 161/100 97 02/24/21 05:55 02/24/21 05:55 02/24/21 05:55 02/24/21 05:55 02/24/21 10:29 Temperature -Last 24 Hours Temperature 98.4 F Temperature 99.0 F - Labs CBC & Chem 7: 02/24/21 05:42 02/22/21 15:12 Labs: Abnormal lab results 02/23/21 02/23/21 02/24/21 Range/Units 15:49 21:20 05:42 RBC 5.26 H (3.65-5.03) M/mm3 MCV 77 L (79-97) fl MCH 25 L (28-32) pg POC Glucose 338 H 311 H (70-105) mg/dL 02/24/21 Range/Units 07:45 RBC (3.65-5.03) M/mm3 MCV (79-97) fl MCH (28-32) pg POC Glucose 118 H (70-105) mg/dL
[2021-02-24] MEDS: INSULIN GLARGINE 100 UNITS/ML SUB-Q SCH (23:24)
[2021-02-25 06:45] LABS: Basophils # (Auto) 0.1 K/mm3 (0.0-0.1); Basophils % (Auto) 0.8 % (0.0-1.8); Eosinophils # (Auto) 0.2 K/mm3 (0.0-0.4); Eosinophils % (Auto) 2.4 % (0.0-4.3); Hemoglobin 14.5 gm/dl (10.1-14.3); Lymphocytes # (Auto) 1.5 K/mm3 (1.2-5.4); Lymphocytes % (Auto) 17.9 % (13.4-35.0); Mean Corpuscular HGB Conc 33 % (30-34); Mean Corpuscular Volume 77 fl (79-97); Monocytes # (Auto) 0.7 K/mm3 (0.0-0.8); Monocytes % (Auto) 7.6 % (0.0-7.3); Platelet Count 263 K/mm3 (140-440); Red Blood Count 5.72 M/mm3 (3.65-5.03); Red Cell Distribution Width 15.5 % (13.2-15.2)
[2021-02-25 06:58] LABS: BUN/Creatinine Ratio 23; Blood Urea Nitrogen 18 mg/dL (7-17); Hemolysis Index 104
[2021-02-25] MEDS: INSULIN REGULAR, HUMAN 100 UNITS/1 ML SUB-Q SCH ×4 (07:50→23:08)
[2021-02-25] MEDS: INSULIN LISPRO 100 UNIT/ML SUB-Q SCH ×5 (07:50→23:07)
--- NOTE | 2021-02-25 07:58 | Progress Note ---
Assessment and Plan Assessment and plan: 55-year-old female with PmHx of HTN, uterine fibroids and ex-smoker admitted for acute right MCA CVA and STEMI s/p PCI in RCA, now with acute respiratory distress requiring continuous Bipap. Acute right MCA CVA - 02/13/21- CT head shows microvascular angiopathy, decreased attenuation along the posterior right frontal subcortical region, no acute intracranial hemorrhage - 02/13/2021- CTA head shows decreased attenuation along the posterior right frontal lobe, no CT evidence of significant stenosis involving proximal cerebral branches particularly the proximal right MCA - 02/13/21- CTA neck shows mild atherosclerotic calcification involving the proximal internal carotid arteries bilaterally without significant stenosis - MRI brain and MRA brain and neck reveals several scattered foci are recent infarct in both the cerebellum and cerebral hemispheres. No hemorrhage or ad verse mass-effect. Findings likely indicate embolic phenomenon. - Not candidate for any intervention- out of the time window - PT/OT/ST eval - Neurology consulted, appreciate recommendations STEMI s/p PCI in RCA, h/o HTN Rt. Ventricle Thrombus - 02/13/2021 Echo: EF 55%, mild concentric left ventricular Hypertrophy,suspected thrombus in right ventricle - Heparin protocol initiated, ok to transition to warfarin or NOAC on d/c - On Statin, beta-silas, Plavix and aspirin - 02/16 X1 dose rectal ASA- due to NPO status - Strict I&O Acute hypoxic respiratory secondary to COVID COVID-19 Pneumonia Dysphagia - Speech eval completed, pass swallow - Pureed diet with thin liquid order Acute kidney injury - improving - Initial cr. 1.5. Sepsis 2/2 bilateral PNA, COVID PNA Anemia - On heparin gtt per protocol, ASA and plavix - Monitor for s/s of bleeding Hyperglycemia - Lantus increased to 10 units SUBQ Hospital Course to date: 02/16/21- Patient AAOX4, with slurred speech and Lt. sided weakness. MRI/MRA brain pending. Remains on continuous Bipap, failed optiflow trial overnight. Bilateral infiltrate noted on today CXR additional lasix was adminstered to optimize Respiratory status, However was D/C due to marginal BP concern for Hypoperfusion. Will reassess in the Am. Plan to wean off Bipap as tolerated. Patient has been NPO due to continuous Bipap. When patient is off bipap nurse to complete bedside swallow screen, if fail will place NGT so pateint can received PO meds. Low grade temp today, TMAX 101.2 in last 24hrs, Bcult pending, on IV abx, ceftriaxone and azithromycin. COVID swab result pending, ID on the case rec to start dexamethasone 6 mg IV/p.o. daily for 10 days. 02/17/21- COVID PCR can back possible, patient was already on Rocephin and azithromaci, added Remdesevir per protocol, and IV decadron was initiated. Patient was wean to heated high flow, currently on 70% FiO2 and 40L. Wean O2 supplement as tolerated for a SPO2b goal above 88%. Persistent hyperglycemia, lantus increased to 10 units. Speech eval completed, patient pass swallow, order placed for pureed diet with thin liquid. Will continue to monitor, Heparing gtt per protocol, Am labs ordered. 02/18/21-blood sugars this morning over 300. Ordered 10 units of IV insulin once. Added 5 units scheduled insulin in addition to sliding scale insulin. Diet change to diabetic diet. 02/19/21: Transfer to floor. NG tube d/c. 02/20/21: Will get speech therapy to re-evaluate patient to see if patient can be escalated from pureed diet. Cardiology recommendations noted, BB is increased. Continue supportive management for covid 19 pneumonia. HFNC currently at 35 l/min/fio2=60%. Ok with sats > 88%. Attempted to call Durga but voicemail was to another person in chart. Will attempt to find another number to update . 02/21/2021. Patient currently with 35 L of oxygen with an FiO2 of 70%. Continue statin therapy, beta blockers, and DAPT with plavix and aspirin per cardiology recommendation. Continue intravenous heparin, ultimately will be transitioned to long-term warfarin therapy or a NOAC. 02/22/2021. Patient's oxygen requirement has been decreased to 30 L/min via HFNC with FiO2 50%. Continue per ID and pulmonary recommendations. Patient received Actemra 02/17/2021. Complete remdesivir x5 days. Complete dexamethasone IV for 10 days. Cardiology also recommends continued statin therapy, beta-blockers and DAPT with Plavix and aspirin. Continue IV heparin and transition to long-term warfarin or NOAC per cardiology 02/23/2021. Chest x-ray from yesterday is unchanged. Patient currently on high flow nasal cannula 30 L/min with FiO2 35%. Continue per ID and pulmonary recommendations. Patient received Actemra 02/17/2021. Complete remdesivir x5 days. Complete dexamethasone IV for 10 days. Cardiology also recommends continued statin therapy, beta-blockers and DAPT with Plavix and aspirin. Continue IV heparin and transition to long-term warfarin or NOAC per cardiology 02/24/2021. Patient remains on high flow nasal cannula 30 L O2 with FiO2 35%. Patient will complete dexamethasone on 02/26/2021. Patient is s/p remdesivir and Actemra. Continue prone positioning as able. Continue statin therapy, beta- blockers and DAPT with Plavix and aspirin. Continue IV heparin and transition to long-term warfarin or NOAC per cardiology 02/25/2021. Patient on high flow nasal cannula with 15 L and FiO2 of 30%. C ontinue dexamethasone until tomorrow. Patient is s/p remdesivir and Actemra. Continue prone positioning as able. Continue statin therapy, beta-blockers and DAPT with Plavix and aspirin. Continue IV heparin and transition to long-term warfarin or NOAC per cardiology History Interval history: No new issues overnight Hospitalist Physical - Constitutional Vitals: Temp Pulse Resp BP Pulse Ox 99.0 F 86 20 143/95 94 02/24/21 22:21 02/24/21 23:26 02/24/21 22:21 02/24/21 23:26 02/25/21 04:30 General appearance: Present: mild distress, well-nourished - EENT Eyes: Present: PERRL, EOM intact ENT: hearing intact, clear oral mucosa, dentition normal - Neck Neck: Present: supple, normal ROM - Respiratory Respiratory effort: normal Respiratory: bilateral: CTA - Cardiovascular Rhythm: regular Heart Sounds: Present: S1 & S2. Absent: gallop, rub - Extremities Extremities: no ischemia, No edema, Full ROM - Abdominal General gastrointestinal: soft, non-tender, non-distended, normal bowel sounds - Integumentary Integumentary: Present: clear, warm, dry - Neurologic Neurologic: CNII-XII intact, moves all extremities HEART Score - HEART Score Troponin: Troponin T 0.992 ng/mL (0.00-0.029) H* 02/15/21 03:55 Results - Labs CBC & Chem 7: 02/25/21 05:58 02/25/21 05:58 Labs: Laboratory Last Values WBC 8.6 K/mm3 (4.5-11.0) 02/25/21 05:58 RBC 5.72 M/mm3 (3.65-5.03) H 02/25/21 05:58 Hgb 14.5 gm/dl (10.1-14.3) H 02/25/21 05:58 Hct 44.0 % (30.3-42.9) H 02/25/21 05:58 MCV 77 fl (79-97) L 02/25/21 05:58 MCH 25 pg (28-32) L 02/25/21 05:58 MCHC 33 % (30-34) 02/25/21 05:58 RDW 15.5 % (13.2-15.2) H 02/25/21 05:58 Plt Count 263 K/mm3 (140-440) 02/25/21 05:58 Lymph % (Auto) 17.9 % (13.4-35.0) 02/25/21 05:58 [place] % (Auto) 7.6 % (0.0-7.3) H 02/25/21 05:58 Eos % (Auto) 2.4 % (0.0-4.3) 02/25/21 05:58 Baso % (Auto) 0.8 % (0.0-1.8) 02/25/21 05:58 Lymph # (Auto) 1.5 K/mm3 (1.2-5.4) 02/25/21 05:58 [place] # (Auto) 0.7 K/mm3 (0.0-0.8) 02/25/21 05:58 Eos # (Auto) 0.2 K/mm3 (0.0-0.4) 02/25/21 05:58 Baso # (Auto) 0.1 K/mm3 (0.0-0.1) 02/25/21 05:58 Add Manual Diff Complete 02/20/21 06:39 Total Counted 100 02/20/21 06:39 Seg Neutrophils % 71.3 % (40.0-70.0) H 02/25/21 05:58 Seg Neuts % (Manual) 88.0 % (40.0-70.0) H 02/20/21 06:39 Lymphocytes % (Manual) 4.0 % (13.4-35.0) L 02/20/21 06:39 Reactive Lymphs % (Man) 2.0 % 02/20/21 06:39 Monocytes % (Manual) 3.0 % (0.0-7.3) 02/20/21 06:39 Eosinophils % (Manual) 1.0 % (0.0-4.3) 02/20/21 06:39 Myelocytes % 2.0 % 02/20/21 06:39 Nucleated RBC % Not Reportable 02/20/21 06:39 Seg Neutrophils # 6.1 K/mm3 (1.8-7.7) 02/25/21 05:58 Seg Neutrophils # Man 5.5 K/mm3 (1.8-7.7) 02/20/21 06:39 Band Neutrophils # 0.0 K/mm3 02/20/21 06:39 Lymphocytes # (Manual) 0.2 K/mm3 (1.2-5.4) L 02/20/21 06:39 Abs React Lymphs (Man) 0.1 K/mm3 02/20/21 06:39 Monocytes # (Manual) 0.2 K/mm3 (0.0-0.8) 02/20/21 06:39 Eosinophils # (Manual) 0.1 K/mm3 (0.0-0.4) 02/20/21 06:39 Basophils # (Manual) 0.0 K/mm3 (0.0-0.1) 02/20/21 06:39 Metamyelocytes # 0.0 K/mm3 02/20/21 06:39 Myelocytes # 0.1 K/mm3 02/20/21 06:39 Promyelocytes # 0.0 K/mm3 02/20/21 06:39 Blast Cells # 0.0 K/mm3 02/20/21 06:39 WBC Morphology Not Reportable 02/20/21 06:39 Hypersegmented Neuts Not Reportable 02/20/21 06:39 Hyposegmented Neuts Not Reportable 02/20/21 06:39 Hypogranular Neuts Not Reportable 02/20/21 06:39 Smudge Cells Not Reportable 02/20/21 06:39 Toxic Granulation Not Reportable 02/20/21 06:39 Toxic Vacuolation Not Reportable 02/20/21 06:39 Dohle Bodies Not Reportable 02/20/21 06:39 Pelger-Huet Anomaly Not Reportable 02/20/21 06:39 Aba Rods Not Reportable 02/20/21 06:39 Platelet Estimate Consistent w auto 02/20/21 06:39 Clumped Platelets Not Reportable 02/20/21 06:39 Plt Clumps, EDTA Not Reportable 02/20/21 06:39 Large Platelets Not Reportable 02/20/21 06:39 Giant Platelets Not Reportable 02/20/21 06:39 Platelet Satelliting Not Reportable 02/20/21 06:39 Plt Morphology Comment Not Reportable 02/20/21 06:39 RBC Morphology Normal 02/20/21 06:39 Dimorphic RBCs Not Reportable 02/20/21 06:39 Polychromasia Not Reportable 02/20/21 06:39 Hypochromasia Not Reportable 02/20/21 06:39 Poikilocytosis Not Reportable 02/20/21 06:39 Anisocytosis Not Reportable 02/20/21 06:39 Microcytosis Not Reportable 02/20/21 06:39 Macrocytosis Not Reportable 02/20/21 06:39 Spherocytes Not Reportable 02/20/21 06:39 Pappenheimer Bodies Not Reportable 02/20/21 06:39 Sickle Cells Not Reportable 02/20/21 06:39 Target Cells Not Reportable 02/20/21 06:39 Tear Drop Cells Not Reportable 02/20/21 06:39 Ovalocytes Not Reportable 02/20/21 06:39 Helmet Cells Not Reportable 02/20/21 06:39 [place] Bodies Not Reportable 02/20/21 06:39 [place] Rings Not Reportable 02/20/21 06:39 [place] Cells Not Reportable 02/20/21 06:39 Bite Cells Not Reportable 02/20/21 06:39 Crenated Cell Not Reportable 02/20/21 06:39 Elliptocytes Not Reportable 02/20/21 06:39 Acanthocytes (Spur) Not Reportable 02/20/21 06:39 Rouleaux Not Reportable 02/20/21 06:39 Hemoglobin C Crystals Not Reportable 02/20/21 06:39 Schistocytes Not Reportable 02/20/21 06:39 Malaria parasites Not Reportable 02/20/21 06:39 Alberto Bodies Not Reportable 02/20/21 06:39 Hem Pathologist Commnt No 02/20/21 06:39 PT 14.1 Sec. (12.2-14.9) 02/22/21 15:12 INR 1.03 (0.87-1.13) 02/22/21 15:12 APTT 50.0 Sec. (24.2-36.6) H 02/22/21 15:12 Thrombin Time 17.2 Sec. (15.1-19.6) 02/14/21 20:21 D-Dimer 4275.78 ng/mlDDU (0-234) H 02/20/21 06:39 Heparin Anti-Xa Level 0.32 U.I./ml (0.3-0.7) 02/22/21 06:50 Sodium 143 mmol/L (137-145) 02/25/21 05:58 Potassium 4.2 mmol/L (3.6-5.0) 02/25/21 05:58 Chloride 101.7 mmol/L (98-107) 02/25/21 05:58 Carbon Dioxide 24 mmol/L (22-30) D 02/25/21 05:58 Anion Gap 22 mmol/L 02/25/21 05:58 BUN 18 mg/dL (7-17) H 02/25/21 05:58 Creatinine 0.8 mg/dL (0.6-1.2) 02/25/21 05:58 Estimated GFR > 60 ml/min 02/25/21 05:58 BUN/Creatinine Ratio 23 % 02/25/21 05:58 Glucose 88 mg/dL (65-100) 02/25/21 05:58 POC Glucose 246 mg/dL (70-105) H 02/24/21 22:20 Calcium 10.0 mg/dL (8.4-10.2) 02/25/21 05:58 Phosphorus 3.30 mg/dL (2.5-4.5) 02/22/21 06:50 Magnesium 1.80 mg/dL (1.7-2.3) 02/22/21 06:50 Ferritin 915.5 ng/mL (10.0-200.0) H 02/20/21 06:39 Total Bilirubin 0.30 mg/dL (0.1-1.2) 02/20/21 06:39 AST 36 units/L (5-40) 02/20/21 06:39 ALT 27 units/L (7-56) 02/20/21 06:39 Alkaline Phosphatase 74 units/L (35-129) 02/20/21 06:39 Lactate Dehydrogenase 645 units/L (91-180) H 02/20/21 06:39 Troponin T 0.992 ng/mL (0.00-0.029) H* 02/15/21 03:55 C-Reactive Protein 3.60 mg/dL (0.00-1.30) H 02/20/21 06:39 NT-Pro-B Natriuret Pep 4086 pg/mL (0-900) H 02/15/21 08:38 Total Protein 7.0 g/dL (6.3-8.2) 02/20/21 06:39 Albumin 3.1 g/dL (3.9-5) L 02/20/21 06:39 Albumin/Globulin Ratio 0.8 % 02/20/21 06:39 Triglycerides 292 mg/dL (2-149) H 02/14/21 20:21 Cholesterol 199 mg/dL (50-199) 02/14/21 20:21 LDL Cholesterol Direct 105 mg/dL (50-130) 02/14/21 20:21 HDL Cholesterol 23 mg/dL (40-59) L 02/14/21 20:21 Cholesterol/HDL Ratio 8.65 % 02/14/21 20:21 Procalcitonin 0.59 ng/mL (<0.15) 02/15/21 18:20 Coronavirus (PCR) Positive (Negative) A 02/16/21 Unknown Blood Type A POSITIVE 02/14/21 20:21 Antibody Screen Negative 02/14/21 20:21 Taylor/IV: Voiding Method External Female Catheter Active Medications - Current Medications Current Medications: Generic Name Dose Route Start Last Admin Trade Name Freq PRN Reason Stop Dose Admin Acetaminophen 650 mg 02/16/21 01:00 02/16/21 02:09 Acetaminophen 650 Mg Rect Supp ND 650 mg Q6H PRN Administration Pain, Mild (1-3) Hydrocodone Bitart/Acetaminophen 1 each 02/14/21 21:57 02/20/21 18:16 Hydrocodone/Acetaminophen 5-325 Mg Tab PO 1 each Q6H PRN Administration Pain, Moderate (4-6) Albuterol 2.5 mg 02/14/21 21:54 Albuterol 2.5 Mg/3 Ml Nebu IH Q4HRT PRN Shortness Of Breath Lipase/Protease/Amylase 1 each 02/17/21 12:34 Lipase 10,500/Protease 25,000/Amylase 43,750 (Units) Dr Betts FEEDTUBE PRN PRN For Clogged Feeding Tube Apixaban 2.5 mg 02/22/21 22:00 02/24/21 23:25 Apixaban 2.5 Mg Tab PO 2.5 mg Q12HR KARYN Administration Protocol Aspirin 81 mg 02/16/21 12:00 02/24/21 11:21 Aspirin 81 Mg Tab Chew PO 81 mg QDAY KARYN Administration Atorvastatin Calcium 80 mg 02/15/21 22:00 02/24/21 23:25 Atorvastatin 40 Mg Tab PO 80 mg QHS KARYN Administration Clopidogrel Bisulfate 75 mg 02/15/21 10:00 02/24/21 11:21 Clopidogrel 75 Mg Tab PO 75 mg QDAY KARYN Administration Dexamethasone 10 mg 02/17/21 10:00 02/24/21 11:19 Dexamethasone 4 Mg/Ml Vial IV 02/26/21 10:01 10 mg Q24HR KARYN Administration Dextrose 0 ml 02/14/21 21:54 Dextrose 50% In Water (25gm) 50 Ml Syringe IV Q30MIN PRN Hypoglycemia Protocol Docusate Sodium 100 mg 02/14/21 22:04 02/22/21 09:15 Docusate Sodium 100 Mg Cap PO 100 mg DAILY PRN Administration Constip unreliev by MOM/or NPO Famotidine 20 mg 02/21/21 10:00 02/24/21 23:25 Famotidine 20 Mg Tab PO 20 mg BID KARYN Administration Ferrous Sulfate 300 mg 02/21/21 22:00 02/24/21 23:24 Ferrous Sulfate 300 Mg (60mg Elemental Iron) / 5 Ml Oral Liqd FEEDTUBE 300 mg BID KARYN Administration Hydromorphone HCl 0.5 mg 02/14/21 21:54 02/18/21 22:00 Hydromorphone 1 Mg/1 Ml Inj IV 0.5 mg Q3H PRN Administration Pain , Severe (7-10) Hydrophilic Ointment 1 applic 02/20/21 09:00 Lip Therapy Vaseline TP DIRECT PRN Dry Lips Insulin Glargine 10 units 02/17/21 22:00 02/24/21 23:24 Insulin Glargine 100 Units/Ml SUB-Q 10 units QHS [facility] Administration Insulin Human Lispro 0 unit 02/17/21 22:00 02/24/21 23:25 Insulin Lispro 100 Unit/Ml SUB-Q 4 unit ACHS [facility] Administration Protocol Insulin Human Regular 7 units 02/22/21 16:30 02/24/21 23:37 Insulin Regular, Human 100 Units/1 Ml SUB-Q 7 units [facility] Administration Melatonin 5 mg 02/16/21 17:53 02/17/21 21:39 Melatonin 5 Mg Tab PO 5 mg QHS PRN Administration Sleep Metoprolol Tartrate 50 mg 02/19/21 22:00 02/24/21 23:26 Metoprolol Tartrate 50 Mg Tab PO 50 mg BID KARYN Administration Morphine Sulfate 2 mg 02/14/21 21:54 Morphine 2 Mg/1 Ml Inj IV Q4H PRN Pain, Moderate (4-6) Ondansetron HCl 4 mg 02/14/21 21:54 02/17/21 21:38 Ondansetron 4 Mg/2 Ml Inj IV 4 mg Q8H PRN Administration Nausea And Vomiting Simple Syrup 15 ml 02/17/21 12:34 Simple Syrup 15 Ml FEEDTUBE PRN PRN Hypoglycemia Simple Syrup 30 ml 02/17/21 12:34 Simple Syrup 15 Ml FEEDTUBE PRN PRN Hypoglycemia Sodium Bicarbonate 325 mg 02/17/21 12:34 Sodium Bicarbonate 325 Mg Tab FEEDTUBE PRN PRN For Clogged Feeding Tube Sodium Chloride 10 ml 02/14/21 22:00 02/25/21 03:38 Sodium Chloride 0.9% 10 Ml Flush Syringe IV 10 ml BID KARYN Administration Sodium Chloride 10 ml 02/14/21 21:54 Sodium Chloride 0.9% 10 Ml Flush Syringe IV PRN PRN LINE FLUSH Nutrition/Malnutrition Assess - Dietary Evaluation Nutrition/Malnutrition Findings: Nutrition Notes Start: 02/15/21 1 2:03 Freq: Status: Active Protocol: Document 02/20/21 16:12 GB (Rec: 02/20/21 16:21 GB [email or web address]) Nutrition Notes Initial or Follow up Reassessment Current Diagnosis Diabetes,Hypertension, Respiratory Failure,Stroke Other Pertinent Diagnosis hyperglycemia, STEMI Current Diet Mechanical soft, thni liquids Labs/Tests 02/20: Na 151, BUN 23, glucose 140, ferritin 915.3 Pertinent Medications ferrous sulfate, NaCl/Hep, NaCl, remdesivir Height 5 ft 4 in Weight 104.3 kg [place]ts Body Weight (kg) 54.54 BMI 39.4 Weight change and time frame no significant changes at this time Weight Status Obese Subjective/Other Information per MD ntoes 02/20: NG d/c 02/19 . [employer] eval advanced diet texture to mechanical soft thin liquids. PO recorded 25% x 1 meal. Adding glucerna BID for additional calories/ protein while po intake recovers. Percent of energy/protein needs met: PO intake of meals and supplement 50% or greater will meet 75% or greater of estimated energy needs. Burn Absent Trauma Absent GI Symptoms None Difficulty In Swallowing Food Allergy No Current % PO Poor (25-49%) Minimum of two criteria No #2 Nutrition Diagnosis Inadequate energy intake Etiology DM, collapse As Evidenced by Signs and Symptoms Recent advancement to PO intake with mechanically altered texture diet, NG d/c , need for nutritional supplement beverage to meet estimated energy needs. #1 Nutrition Diagnosis Other: (Specify in comment below) Comments: Comprimised PO intake, dependency for enteral feed to meet nutrition needs Etiology DM, collapse, As Evidenced by Signs and Symptoms not able to eat PO at this time, MD order for TF Diagnosis Progress(for reassessment Resolved documentation) Is patient on ventilator? No Is Patient Ambulatory and/or Out of Bed Yes REE-([facility]-ambulatory/OOB) [ 6512.400 [id number]] Kcal/Kg value to use for calculation 17 Approximate Energy Requirements Using 1773 kcal/Kg Calculation Used for Recommendations Kcal/kg Additional Notes Protein: 0.7-1 g/kg @ 104k-104g Fluids: 1 ml/kcal or per MD Nutrition Intervention Change Diet Order: Continue with current diet advancing texture per [employer] Nutrition Support: n/a Add Supplement/Snack (indicate name/kcal glucerna BID /protein ) Provides kCal: 440 Provides Protein (gm) 20 Goal #1 PO intake of meals to improve to 50% or greater during LOS Goal #2 weight to maintain within -3% current weight for LOS Goal #3 PO intake of nutritional supplement beverage to be 50% or greater BID daily during LOS Follow-Up By: 02/27/21 Additional Comments Follow PO intake of meals/ supplements
--- NOTE | 2021-02-25 09:52 | Progress Note ---
Assessment and Plan 1. Status post acute inferior wall WI with PCI and stent placement to the RCA 2. Bilateral pneumonia secondary to Covid 3. Acute renal failure resolved 4. CVA with left hemiparesis 5. Type 2 diabetes mellitus Plan. Cardiac padilla stable asymptomatic continue present cardiac management plan Subjective Date of service: 02/25/21 Principal diagnosis: CVA with left side weakness ,elevated inflammatory markers Interval history: No cardiac complains. Objective Vital Signs Temp Pulse Resp BP Pulse Ox 02/25/21 04:30 94 02/25/21 00:05 97 02/24/21 23:26 86 143/95 02/24/21 22:21 99.0 F 86 20 143/95 91 02/24/21 22:00 97 02/24/21 20:40 97 02/24/21 17:52 94 02/24/21 16:26 88 96 02/24/21 16:25 98.1 F 91 H 17 117/76 95 02/24/21 12:00 95 02/24/21 10:29 97 - Physical Examination General: No Apparent Distress HEENT: Positive: PERRL Neck: Positive: trachea midline. Negative: JVD/HJR Cardiac: Positive: Regular Rate, S1/S2, PMI, Laterally Displaced Lungs: Positive: clear to auscultation, No Wheeze, Rales, Rhonchi Neuro: Positive: Other (Left hemiparesis) Abdomen: Positive: Unremarkable Extremities: Absent: edema - Labs and Meds CBC 02/25/21 Range/Units 05:58 WBC 8.6 (4.5-11.0) K/mm3 RBC 5.72 H (3.65-5.03) M/mm3 Hgb 14.5 H (10.1-14.3) gm/dl Hct 44.0 H (30.3-42.9) % Plt Count 263 (140-440) K/mm3 Lymph # (Auto) 1.5 (1.2-5.4) K/mm3 [place] # (Auto) 0.7 (0.0-0.8) K/mm3 Eos # (Auto) 0.2 (0.0-0.4) K/mm3 Baso # (Auto) 0.1 (0.0-0.1) K/mm3 Comprehensive Metabolic Panel 02/25/21 Range/Units 05:58 Sodium 143 (137-145) mmol/L Potassium 4.2 (3.6-5.0) mmol/L Chloride 101.7 (98-107) mmol/L Carbon Dioxide 24 D (22-30) mmol/L BUN 18 H (7-17) mg/dL Creatinine 0.8 (0.6-1.2) mg/dL Glucose 88 (65-100) mg/dL Calcium 10.0 (8.4-10.2) mg/dL - Imaging and Cardiology Echo: other (02/14/2021 Echo - Normal LV and RV systolic function, thrombus in RV)
[2021-02-25] MEDS: METOPROLOL TARTRATE 50 MG TAB PO SCH ×2 (09:59→22:54)
[2021-02-25] MEDS: ASPIRIN 81 MG TAB CHEW PO SCH (09:59)
[2021-02-25] MEDS: FERROUS SULFATE 300 MG (60MG Elemental Iron) / 5 mL ORAL LIQD FEEDTUBE SCH ×2 (09:59→22:53)
[2021-02-25] MEDS: APIXABAN 2.5 MG TAB PO SCH ×2 (10:00→22:53)
[2021-02-25] MEDS: dexAMETHasone 4 MG/ML VIAL IV SCH (10:00)
[2021-02-25] MEDS: CLOPIDOGREL 75 MG TAB PO SCH (10:00)
[2021-02-25] MEDS: FAMOTIDINE 20 MG TAB PO SCH ×2 (10:00→22:54)
--- NOTE | 2021-02-25 17:35 | Progress Note ---
Assessment and Plan Imp: 1. Covid-19 2. Viral pneumonia 3. Acute respiratory failure, hypoxia 4. Obesity 5. STEMI Rec: 1. S/p Actemra and Remdesivir 2. 10-14 days of Decadron 3. On Eliquis/Plavix; cardiology following 4. Wean HFNC to keep sats 88% or > 5. Prognosis guarded Subjective Date of service: 02/25/21 Principal diagnosis: Covid-19 Interval history: No apparent events. On HFNC 20LPM and 40FiO2. + SOB. Active Medications Acetaminophen (Acetaminophen 650 Mg Rect Supp) 650 mg VA Q6H PRN PRN Reason: Pain, Mild (1-3) Last Admin: 02/16/21 02:09 Dose: 650 mg Documented by: Hydrocodone Bitart/Acetaminophen (Hydrocodone/Acetaminophen 5-325 Mg Tab) 1 each PO Q6H PRN PRN Reason: Pain, Moderate (4-6) Last Admin: 02/20/21 18:16 Dose: 1 each Documented by: Albuterol (Albuterol 2.5 Mg/3 Ml Nebu) 2.5 mg IH Q4HRT PRN PRN Reason: Shortness Of Breath Lipase/Protease/Amylase (Lipase 10,500/Protease 25,000/Amylase 43,750 (Units) Dr Betts) 1 each FEEDTUBE PRN PRN PRN Reason: For Clogged Feeding Tube Apixaban (Apixaban 2.5 Mg Tab) 2.5 mg PO Q12HR [facility]; Protocol Last Admin: 02/25/21 10:00 Dose: 2.5 mg Documented by: Aspirin (Aspirin 81 Mg Tab Chew) 81 mg PO QDAY [facility] Last Admin: 02/25/21 09:59 Dose: 81 mg Documented by: Atorvastatin Calcium (Atorvastatin 40 Mg Tab) 80 mg PO QHS [facility] Last Admin: 02/24/21 23:25 Dose: 80 mg Documented by: Clopidogrel Bisulfate (Clopidogrel 75 Mg Tab) 75 mg PO QDAY [facility] Last Admin: 02/25/21 10:00 Dose: 75 mg Documented by: Dexamethasone (Dexamethasone 4 Mg/Ml Vial) 10 mg IV Q24HR [facility] Stop: 02/26/21 10:01 Last Admin: 02/25/21 10:00 Dose: 10 mg Documented by: Dextrose (Dextrose 50% In Water (25gm) 50 Ml Syringe) 0 ml IV Q30MIN PRN; Protocol PRN Reason: Hypoglycemia Docusate Sodium (Docusate Sodium 100 Mg Cap) 100 mg PO DAILY PRN PRN Reason: Constip unreliev by MOM/or NPO Last Admin: 02/22/21 09:15 Dose: 100 mg Documented by: Famotidine (Famotidine 20 Mg Tab) 20 mg PO BID [facility] Last Admin: 02/25/21 10:00 Dose: 20 mg Documented by: Ferrous Sulfate (Ferrous Sulfate 300 Mg (60mg Elemental Iron) / 5 Ml Oral Liqd) 300 mg FEEDTUBE BID [facility] Last Admin: 02/25/21 09:59 Dose: 300 mg Documented by: Hydromorphone HCl (Hydromorphone 1 Mg/1 Ml Inj) 0.5 mg IV Q3H PRN PRN Reason: Pain , Severe (7-10) Last Admin: 02/18/21 22:00 Dose: 0.5 mg Documented by: Hydrophilic Ointment (Lip Therapy Vaseline) 1 applic TP DIRECT PRN PRN Reason: Dry Lips Insulin Glargine (Insulin Glargine 100 Units/Ml) [facility] Last Admin: 02/24/21 23:24 Dose: 10 units Documented by: Insulin Human Lispro (Insulin Lispro 100 Unit/Ml) 0 unit SUB-Q [facility]; Protocol Last Admin: 02/25/21 15:46 Dose: 4 unit Documented by: Insulin Human Regular (Insulin Regular, Human 100 Units/1 Ml) 7 units SUB-Q [facility] Last Admin: 02/25/21 15:47 Dose: 7 units Documented by: Melatonin (Melatonin 5 Mg Tab) 5 mg PO QHS PRN PRN Reason: Sleep Last Admin: 02/17/21 21:39 Dose: 5 mg Documented by: Metoprolol Tartrate (Metoprolol Tartrate 50 Mg Tab) 50 mg PO BID [facility] Last Admin: 02/25/21 09:59 Dose: 50 mg Documented by: Morphine Sulfate (Morphine 2 Mg/1 Ml Inj) 2 mg IV Q4H PRN PRN Reason: Pain, Moderate (4-6) Ondansetron HCl (Ondansetron 4 Mg/2 Ml Inj) 4 mg IV Q8H PRN PRN Reason: Nausea And Vomiting Last Admin: 02/17/21 21:38 Dose: 4 mg Documented by: Simple Syrup (Simple Syrup 15 Ml) 15 ml FEEDTUBE PRN PRN PRN Reason: Hypoglycemia Simple Syrup (Simple Syrup 15 Ml) 30 ml FEEDTUBE PRN PRN PRN Reason: Hypoglycemia Sodium Bicarbonate (Sodium Bicarbonate 325 Mg Tab) 325 mg FEEDTUBE PRN PRN PRN Reason: For Clogged Feeding Tube Sodium Chloride (Sodium Chloride 0.9% 10 Ml Flush Syringe) 10 ml IV BID [facility] Last Admin: 02/25/21 10:01 Dose: 10 ml Documented by: Sodium Chloride (Sodium Chloride 0.9% 10 Ml Flush Syringe) 10 ml IV PRN PRN PRN Reason: LINE FLUSH Objective - Exam Narrative Exam: Exam deferred to preserve PPE and decrease transmission of virus. Reviewed primary team exam. Vital Signs - 12hr 02/25/21 02/25/21 02/25/21 06:24 09:59 10:00 Temperature 98.0 F Pulse Rate 91 H 86 Respiratory 20 Rate Blood Pressure 133/94 O2 Sat by Pulse 97 96 Oximetry 02/25/21 02/25/21 02/25/21 10:57 12:23 14:52 Temperature 98.3 F Pulse Rate 92 H Respiratory 24 Rate Blood Pressure 112/69 O2 Sat by Pulse 91 93 97 Oximetry Gastrointestinal: normoactive bowel sounds Integumentary: normal CBC and BMP: 02/25/21 05:58 02/25/21 05:58 ABG, PT/INR, D-dimer: PT/INR, D-dimer PT 14.1 Sec. (12.2-14.9) 02/22/21 15:12 INR 1.03 (0.87-1.13) 02/22/21 15:12 D-Dimer 4275.78 ng/mlDDU (0-234) H 02/20/21 06:39 Abnormal lab findings: Abnormal Labs 02/14/21 02/14/21 02/14/21 20:21 20:21 20:21 WBC 15.6 H RBC 5.55 H Hgb Hct 43.3 H MCV 78 L MCH 26 L MCHC RDW 16.3 H Lymph % (Auto) [place] % (Auto) Lymph # (Auto) Seg Neutrophils % Seg Neuts % (Manual) 96.0 H Lymphocytes % (Manual) 3.0 L Seg Neutrophils # Seg Neutrophils # Man 15.0 H Lymphocytes # (Manual) 0.5 L PT 16.7 H INR 1.30 H APTT D-Dimer Heparin Anti-Xa Level Sodium 131 L Potassium 5.1 H Chloride 88.4 L Carbon Dioxide 20 L BUN 34 H Creatinine 1.5 H Glucose 574 H* POC Glucose Magnesium Ferritin AST Lactate Dehydrogenase Troponin T 0.882 H* C-Reactive Protein NT-Pro-B Natriuret Pep Albumin Triglycerides 292 H HDL Cholesterol 23 L Coronavirus (PCR) 02/14/21 02/14/21 02/14/21 20:21 23:11 23:20 WBC RBC Hgb Hct MCV MCH MCHC RDW Lymph % (Auto) [place] % (Auto) Lymph # (Auto) Seg Neutrophils % Seg Neuts % (Manual) Lymphocytes % (Manual) Seg Neutrophils # Seg Neutrophils # Man Lymphocytes # (Manual) PT INR APTT D-Dimer Heparin Anti-Xa Level Sodium Potassium Chloride Carbon Dioxide BUN Creatinine Glucose POC Glucose 562 H 422 H Magnesium Ferritin AST Lactate Dehydrogenase Troponin T 0.892 H* C-Reactive Protein NT-Pro-B Natriuret Pep Albumin Triglycerides HDL Cholesterol Coronavirus (PCR) 02/15/21 02/15/21 02/15/21 03:55 03:55 05:29 WBC RBC 5.17 H Hgb Hct MCV 77 L MCH 26 L MCHC RDW 15.8 H Lymph % (Auto) 4.9 L [place] % (Auto) Lymph # (Auto) 0.5 L Seg Neutrophils % 89.2 H Seg Neuts % (Manual) Lymphocytes % (Manual) Seg Neutrophils # 8.4 H Seg Neutrophils # Man Lymphocytes # (Manual) PT INR APTT D-Dimer Heparin Anti-Xa Level Sodium 136 L Potassium Chloride 97.3 L Carbon Dioxide 18 L BUN 33 H Creatinine Glucose 402 H POC Glucose 345 H Magnesium Ferritin AST 46 H Lactate Dehydrogenase Troponin T 0.992 H* C-Reactive Protein NT-Pro-B Natriuret Pep Albumin 3.0 L Triglycerides HDL Cholesterol Coronavirus (PCR) 02/15/21 02/15/21 02/15/21 08:38 08:38 08:38 WBC RBC Hgb Hct MCV 75 L MCH 26 L MCHC 35 H RDW 16.2 H Lymph % (Auto) [place] % (Auto) Lymph # (Auto) Seg Neutrophils % Seg Neuts % (Manual) Lymphocytes % (Manual) Seg Neutrophils # Seg Neutrophils # Man Lymphocytes # (Manual) PT INR APTT D-Dimer Heparin Anti-Xa Level Sodium 135 L Potassium Chloride Carbon Dioxide 19 L BUN 31 H Creatinine Glucose 360 H POC Glucose Magnesium 2.50 H Ferritin AST Lactate Dehydrogenase Troponin T C-Reactive Protein NT-Pro-B Natriuret Pep 4086 H Albumin Triglycerides HDL Cholesterol Coronavirus (PCR) 02/15/21 02/15/21 02/15/21 11:15 17:28 18:20 WBC RBC Hgb Hct MCV MCH MCHC RDW Lymph % (Auto) [place] % (Auto) Lymph # (Auto) Seg Neutrophils % Seg Neuts % (Manual) Lymphocytes % (Manual) Seg Neutrophils # Seg Neutrophils # Man Lymphocytes # (Manual) PT INR APTT D-Dimer > 39187 H Heparin Anti-Xa Level Sodium Potassium Chloride Carbon Dioxide BUN Creatinine Glucose POC Glucose 317 H 311 H Magnesium Ferritin AST Lactate Dehydrogenase Troponin T C-Reactive Protein NT-Pro-B Natriuret Pep Albumin Triglycerides HDL Cholesterol Coronavirus (PCR) 02/15/21 02/15/21 02/15/21 18:20 18:20 18:20 WBC RBC Hgb Hct MCV MCH MCHC RDW Lymph % (Auto) [place] % (Auto) Lymph # (Auto) Seg Neutrophils % Seg Neuts % (Manual) Lymphocytes % (Manual) Seg Neutrophils # Seg Neutrophils # Man Lymphocytes # (Manual) PT 15.8 H INR 1.20 H APTT D-Dimer Heparin Anti-Xa Level Sodium Potassium Chloride Carbon Dioxide BUN Creatinine Glucose POC Glucose Magnesium Ferritin 837.7 H AST Lactate Dehydrogenase 766 H Troponin T C-Reactive Protein 21.50 H NT-Pro-B Natriuret Pep Albumin Triglycerides HDL Cholesterol Coronavirus (PCR) 02/15/21 02/16/21 02/16/21 23:45 02:44 02:44 WBC RBC Hgb Hct MCV 77 L MCH 26 L MCHC RDW 16.0 H Lymph % (Auto) [place] % (Auto) Lymph # (Auto) Seg Neutrophils % Seg Neuts % (Manual) Lymphocytes % (Manual) Seg Neutrophils # Seg Neutrophils # Man Lymphocytes # (Manual) PT INR APTT D-Dimer Heparin Anti-Xa Level Sodium Potassium Chloride Carbon Dioxide BUN 27 H Creatinine Glucose 269 H POC Glucose 203 H Magnesium Ferritin AST Lactate Dehydrogenase Troponin T C-Reactive Protein NT-Pro-B Natriuret Pep Albumin Triglycerides HDL Cholesterol Coronavirus (PCR) 02/16/21 02/16/21 02/16/21 05:47 11:50 15:00 WBC RBC Hgb Hct MCV MCH MCHC RDW Lymph % (Auto) [place] % (Auto) Lymph # (Auto) Seg Neutrophils % Seg Neuts % (Manual) Lymphocytes % (Manual) Seg Neutrophils # Seg Neutrophils # Man Lymphocytes # (Manual) PT INR APTT D-Dimer Heparin Anti-Xa Level < 0.10 L Sodium Potassium Chloride Carbon Dioxide BUN Creatinine Glucose POC Glucose 275 H 251 H Magnesium Ferritin AST Lactate Dehydrogenase Troponin T C-Reactive Protein NT-Pro-B Natriuret Pep Albumin Triglycerides HDL Cholesterol Coronavirus (PCR) 02/16/21 02/16/21 02/16/21 18:23 23:30 23:57 WBC RBC Hgb Hct MCV MCH MCHC RDW Lymph % (Auto) [place] % (Auto) Lymph # (Auto) Seg Neutrophils % Seg Neuts % (Manual) Lymphocytes % (Manual) Seg Neutrophils # Seg Neutrophils # Man Lymphocytes # (Manual) PT INR APTT D-Dimer Heparin Anti-Xa Level < 0.10 L Sodium Potassium Chloride Carbon Dioxide BUN Creatinine Glucose POC Glucose 237 H 249 H Magnesium Ferritin AST Lactate Dehydrogenase Troponin T C-Reactive Protein NT-Pro-B Natriuret Pep Albumin Triglycerides HDL Cholesterol Coronavirus (PCR) 02/16/21 02/17/21 02/17/21 Unknown 05:25 06:18 WBC RBC Hgb Hct MCV MCH MCHC RDW Lymph % (Auto) [place] % (Auto) Lymph # (Auto) Seg Neutrophils % Seg Neuts % (Manual) Lymphocytes % (Manual) Seg Neutrophils # Seg Neutrophils # Man Lymphocytes # (Manual) PT INR APTT D-Dimer Heparin Anti-Xa Level Sodium Potassium Chloride Carbon Dioxide BUN Creatinine Glucose POC Glucose 238 H 229 H Magnesium Ferritin AST Lactate Dehydrogenase Troponin T C-Reactive Protein NT-Pro-B Natriuret Pep Albumin Triglycerides HDL Cholesterol Coronavirus (PCR) Positive A 02/17/21 02/17/21 02/17/21 11:35 13:30 13:30 WBC RBC Hgb Hct MCV MCH MCHC RDW Lymph % (Auto) [place] % (Auto) Lymph # (Auto) Seg Neutrophils % Seg Neuts % (Manual) Lymphocytes % (Manual) Seg Neutrophils # Seg Neutrophils # Man Lymphocytes # (Manual) PT INR APTT D-Dimer Heparin Anti-Xa Level 0.29 L Sodium 146 H D Potassium Chloride 107.3 H Carbon Dioxide BUN 29 H Creatinine Glucose 334 H POC Glucose 279 H Magnesium Ferritin AST Lactate Dehydrogenase Troponin T C-Reactive Protein NT-Pro-B Natriuret Pep Albumin Triglycerides HDL Cholesterol Coronavirus (PCR) 02/17/21 02/17/21 02/17/21 13:30 13:30 16:42 WBC RBC Hgb Hct MCV 77 L MCH 25 L MCHC RDW 16.1 H Lymph % (Auto) [place] % (Auto) Lymph # (Auto) Seg Neutrophils % Seg Neuts % (Manual) Lymphocytes % (Manual) Seg Neutrophils # Seg Neutrophils # Man Lymphocytes # (Manual) PT INR APTT D-Dimer Heparin Anti-Xa Level Sodium 146 H Potassium Chloride Carbon Dioxide BUN 29 H Creatinine Glucose 340 H POC Glucose 291 H Magnesium Ferritin AST Lactate Dehydrogenase Troponin T C-Reactive Protein NT-Pro-B Natriuret Pep Albumin 2.7 L Triglycerides HDL Cholesterol Coronavirus (PCR) 02/17/21 02/18/21 02/18/21 21:43 04:40 04:40 WBC RBC Hgb Hct MCV 78 L MCH 26 L MCHC RDW 16.3 H Lymph % (Auto) [place] % (Auto) Lymph # (Auto) Seg Neutrophils % Seg Neuts % (Manual) Lymphocytes % (Manual) Seg Neutrophils # Seg Neutrophils # Man Lymphocytes # (Manual) PT INR APTT D-Dimer Heparin Anti-Xa Level Sodium 149 H Potassium Chloride 108.9 H Carbon Dioxide BUN 34 H Creatinine Glucose 318 H POC Glucose 288 H Magnesium Ferritin AST Lactate Dehydrogenase Troponin T C-Reactive Protein 14.50 H NT-Pro-B Natriuret Pep Albumin 3.0 L Triglycerides HDL Cholesterol Coronavirus (PCR) 02/18/21 02/18/21 02/18/21 04:40 08:02 11:30 WBC RBC Hgb Hct MCV MCH MCHC RDW Lymph % (Auto) [place] % (Auto) Lymph # (Auto) Seg Neutrophils % Seg Neuts % (Manual) Lymphocytes % (Manual) Seg Neutrophils # Seg Neutrophils # Man Lymphocytes # (Manual) PT INR APTT D-Dimer 3846.94 H Heparin Anti-Xa Level Sodium Potassium Chloride Carbon Dioxide BUN Creatinine Glucose POC Glucose 263 H 309 H Magnesium Ferritin AST Lactate Dehydrogenase Troponin T C-Reactive Protein NT-Pro-B Natriuret Pep Albumin Triglycerides HDL Cholesterol Coronavirus (PCR) 02/18/21 02/18/21 02/18/21 12:29 21:56 22:34 WBC RBC Hgb Hct MCV MCH MCHC RDW Lymph % (Auto) [place] % (Auto) Lymph # (Auto) Seg Neutrophils % Seg Neuts % (Manual) Lymphocytes % (Manual) Seg Neutrophils # Seg Neutrophils # Man Lymphocytes # (Manual) PT INR APTT D-Dimer Heparin Anti-Xa Level 0.29 L Sodium Potassium Chloride Carbon Dioxide BUN Creatinine Glucose POC Glucose 313 H 284 H Magnesium Ferritin AST Lactate Dehydrogenase Troponin T C-Reactive Protein NT-Pro-B Natriuret Pep Albumin Triglycerides HDL Cholesterol Coronavirus (PCR) 02/18/21 02/19/21 02/19/21 23:52 06:11 07:54 WBC RBC Hgb Hct MCV MCH MCHC RDW Lymph % (Auto) [place] % (Auto) Lymph # (Auto) Seg Neutrophils % Seg Neuts % (Manual) Lymphocytes % (Manual) Seg Neutrophils # Seg Neutrophils # Man Lymphocytes # (Manual) PT INR APTT D-Dimer Heparin Anti-Xa Level Sodium 151 H Potassium Chloride 110.6 H Carbon Dioxide BUN 28 H Creatinine Glucose 191 H POC Glucose 272 H 155 H Magnesium Ferritin AST Lactate Dehydrogenase Troponin T C-Reactive Protein NT-Pro-B Natriuret Pep Albumin 3.0 L Triglycerides HDL Cholesterol Coronavirus (PCR) 02/19/21 02/19/21 02/19/21 12:37 16:29 21:28 WBC RBC Hgb Hct MCV MCH MCHC RDW Lymph % (Auto) [place] % (Auto) Lymph # (Auto) Seg Neutrophils % Seg Neuts % (Manual) Lymphocytes % (Manual) Seg Neutrophils # Seg Neutrophils # Man Lymphocytes # (Manual) PT INR APTT D-Dimer Heparin Anti-Xa Level Sodium Potassium Chloride Carbon Dioxide BUN Creatinine Glucose POC Glucose 233 H 268 H 298 H Magnesium Ferritin AST Lactate Dehydrogenase Troponin T C-Reactive Protein NT-Pro-B Natriuret Pep Albumin Triglycerides HDL Cholesterol Coronavirus (PCR) 02/19/21 02/20/21 02/20/21 23:34 06:39 06:39 WBC RBC 5.08 H Hgb Hct MCV 77 L MCH 25 L MCHC RDW 16.0 H Lymph % (Auto) [place] % (Auto) Lymph # (Auto) Seg Neutrophils % Seg Neuts % (Manual) 88.0 H Lymphocytes % (Manual) 4.0 L Seg Neutrophils # Seg Neutrophils # Man Lymphocytes # (Manual) 0.2 L PT INR APTT D-Dimer 4275.78 H Heparin Anti-Xa Level 0.26 L Sodium Potassium Chloride Carbon Dioxide BUN Creatinine Glucose POC Glucose Magnesium Ferritin AST Lactate Dehydrogenase Troponin T C-Reactive Protein NT-Pro-B Natriuret Pep Albumin Triglycerides HDL Cholesterol Coronavirus (PCR) 02/20/21 02/20/21 02/20/21 06:39 06:39 08:45 WBC RBC Hgb Hct MCV MCH MCHC RDW Lymph % (Auto) [place] % (Auto) Lymph # (Auto) Seg Neutrophils % Seg Neuts % (Manual) Lymphocytes % (Manual) Seg Neutrophils # Seg Neutrophils # Man Lymphocytes # (Manual) PT INR APTT D-Dimer Heparin Anti-Xa Level Sodium 152 H 151 H Potassium Chloride 112.0 H 111.4 H Carbon Dioxide 31 H BUN 23 H 23 H Creatinine Glucose 119 H 140 H POC Glucose Magnesium Ferritin 915.5 H AST Lactate Dehydrogenase 645 H Troponin T C-Reactive Protein 3.60 H NT-Pro-B Natriuret Pep Albumin 3.1 L Triglycerides HDL Cholesterol Coronavirus (PCR) 02/20/21 02/20/21 02/20/21 11:57 18:01 22:20 WBC RBC Hgb Hct MCV MCH MCHC RDW Lymph % (Auto) [place] % (Auto) Lymph # (Auto) Seg Neutrophils % Seg Neuts % (Manual) Lymphocytes % (Manual) Seg Neutrophils # Seg Neutrophils # Man Lymphocytes # (Manual) PT INR APTT D-Dimer Heparin Anti-Xa Level Sodium Potassium Chloride Carbon Dioxide BUN Creatinine Glucose POC Glucose 217 H 337 H 379 H Magnesium Ferritin AST Lactate Dehydrogenase Troponin T C-Reactive Protein NT-Pro-B Natriuret Pep Albumin Triglycerides HDL Cholesterol Coronavirus (PCR) 02/21/21 02/21/21 02/21/21 07:43 11:42 16:30 WBC RBC Hgb Hct MCV MCH MCHC RDW Lymph % (Auto) [place] % (Auto) Lymph # (Auto) Seg Neutrophils % Seg Neuts % (Manual) Lymphocytes % (Manual) Seg Neutrophils # Seg Neutrophils # Man Lymphocytes # (Manual) PT INR APTT D-Dimer Heparin Anti-Xa Level Sodium Potassium Chloride Carbon Dioxide BUN Creatinine Glucose POC Glucose 152 H 206 H 235 H Magnesium Ferritin AST Lactate Dehydrogenase Troponin T C-Reactive Protein NT-Pro-B Natriuret Pep Albumin Triglycerides HDL Cholesterol Coronavirus (PCR) 02/21/21 02/22/21 02/22/21 21:56 05:51 06:50 WBC RBC Hgb Hct MCV MCH MCHC RDW Lymph % (Auto) [place] % (Auto) Lymph # (Auto) Seg Neutrophils % Seg Neuts % (Manual) Lymphocytes % (Manual) Seg Neutrophils # Seg Neutrophils # Man Lymphocytes # (Manual) PT INR APTT D-Dimer Heparin Anti-Xa Level Sodium Potassium 3.5 L Chloride Carbon Dioxide 31 H BUN 19 H Creatinine Glucose 118 H POC Glucose 205 H 121 H Magnesium Ferritin AST Lactate Dehydrogenase Troponin T C-Reactive Protein NT-Pro-B Natriuret Pep Albumin Triglycerides HDL Cholesterol Coronavirus (PCR) 02/22/21 02/22/21 02/22/21 07:55 11:47 15:12 WBC RBC Hgb Hct MCV 76 L MCH 26 L MCHC RDW Lymph % (Auto) [place] % (Auto) Lymph # (Auto) Seg Neutrophils % Seg Neuts % (Manual) Lymphocytes % (Manual) Seg Neutrophils # Seg Neutrophils # Man Lymphocytes # (Manual) PT INR APTT D-Dimer Heparin Anti-Xa Level Sodium Potassium Chloride Carbon Dioxide BUN Creatinine Glucose POC Glucose 148 H 216 H Magnesium Ferritin AST Lactate Dehydrogenase Troponin T C-Reactive Protein NT-Pro-B Natriuret Pep Albumin Triglycerides HDL Cholesterol Coronavirus (PCR) 02/22/21 02/22/21 02/22/21 15:12 17:55 22:01 WBC RBC Hgb Hct MCV MCH MCHC RDW Lymph % (Auto) [place] % (Auto) Lymph # (Auto) Seg Neutrophils % Seg Neuts % (Manual) Lymphocytes % (Manual) Seg Neutrophils # Seg Neutrophils # Man Lymphocytes # (Manual) PT INR APTT 50.0 H D-Dimer Heparin Anti-Xa Level Sodium Potassium Chloride Carbon Dioxide BUN Creatinine Glucose POC Glucose 327 H 173 H Magnesium Ferritin AST Lactate Dehydrogenase Troponin T C-Reactive Protein NT-Pro-B Natriuret Pep Albumin Triglycerides HDL Cholesterol Coronavirus (PCR) 02/23/21 02/23/21 02/23/21 07:36 10:32 15:49 WBC RBC Hgb Hct MCV MCH MCHC RDW Lymph % (Auto) [place] % (Auto) Lymph # (Auto) Seg Neutrophils % Seg Neuts % (Manual) Lymphocytes % (Manual) Seg Neutrophils # Seg Neutrophils # Man Lymphocytes # (Manual) PT INR APTT D-Dimer Heparin Anti-Xa Level Sodium Potassium Chloride Carbon Dioxide BUN Creatinine Glucose POC Glucose 149 H 240 H 338 H Magnesium Ferritin AST Lactate Dehydrogenase Troponin T C-Reactive Protein NT-Pro-B Natriuret Pep Albumin Triglycerides HDL Cholesterol Coronavirus (PCR) 02/23/21 02/24/21 02/24/21 21:20 05:42 07:45 WBC RBC 5.26 H Hgb Hct MCV 77 L MCH 25 L MCHC RDW Lymph % (Auto) [place] % (Auto) Lymph # (Auto) Seg Neutrophils % Seg Neuts % (Manual) Lymphocytes % (Manual) Seg Neutrophils # Seg Neutrophils # Man Lymphocytes # (Manual) PT INR APTT D-Dimer Heparin Anti-Xa Level Sodium Potassium Chloride Carbon Dioxide BUN Creatinine Glucose POC Glucose 311 H 118 H Magnesium Ferritin AST Lactate Dehydrogenase Troponin T C-Reactive Protein NT-Pro-B Natriuret Pep Albumin Triglycerides HDL Cholesterol Coronavirus (PCR) 02/24/21 02/24/21 02/24/21 12:28 16:27 22:20 WBC RBC Hgb Hct MCV MCH MCHC RDW Lymph % (Auto) [place] % (Auto) Lymph # (Auto) Seg Neutrophils % Seg Neuts % (Manual) Lymphocytes % (Manual) Seg Neutrophils # Seg Neutrophils # Man Lymphocytes # (Manual) PT INR APTT D-Dimer Heparin Anti-Xa Level Sodium Potassium Chloride Carbon Dioxide BUN Creatinine Glucose POC Glucose 240 H 446 H 246 H Magnesium Ferritin AST Lactate Dehydrogenase Troponin T C-Reactive Protein NT-Pro-B Natriuret Pep Albumin Triglycerides HDL Cholesterol Coronavirus (PCR) 02/25/21 02/25/21 02/25/21 05:58 05:58 12:24 WBC RBC 5.72 H Hgb 14.5 H Hct 44.0 H MCV 77 L MCH 25 L MCHC RDW 15.5 H Lymph % (Auto) [place] % (Auto) 7.6 H Lymph # (Auto) Seg Neutrophils % 71.3 H Seg Neuts % (Manual) Lymphocytes % (Manual) Seg Neutrophils # Seg Neutrophils # Man Lymphocytes # (Manual) PT INR APTT D-Dimer Heparin Anti-Xa Level Sodium Potassium Chloride Carbon Dioxide BUN 18 H Creatinine Glucose POC Glucose 248 H Magnesium Ferritin AST Lactate Dehydrogenase Troponin T C-Reactive Protein NT-Pro-B Natriuret Pep Albumin Triglycerides HDL Cholesterol Coronavirus (PCR) 02/25/21 17:06 WBC RBC Hgb Hct MCV MCH MCHC RDW Lymph % (Auto) [place] % (Auto) Lymph # (Auto) Seg Neutrophils % Seg Neuts % (Manual) Lymphocytes % (Manual) Seg Neutrophils # Seg Neutrophils # Man Lymphocytes # (Manual) PT INR APTT D-Dimer Heparin Anti-Xa Level Sodium Potassium Chloride Carbon Dioxide BUN Creatinine Glucose POC Glucose 335 H Magnesium Ferritin AST Lactate Dehydrogenase Troponin T C-Reactive Protein NT-Pro-B Natriuret Pep Albumin Triglycerides HDL Cholesterol Coronavirus (PCR)
[2021-02-25] MEDS: INSULIN GLARGINE 100 UNITS/ML SUB-Q SCH (22:54)
[2021-02-26] MEDS: MELATONIN 5 MG TAB PO PRN (03:47)
[2021-02-26] MEDS: MORPHINE 2 MG/1 ML INJ IV PRN (03:48)
[2021-02-26] MEDS ORDERED: guaiFENesin 100 MG/5 ML ORAL LIQD PO PRN ×2 (03:49→22:48)
[2021-02-26 08:05] LABS: Hematocrit 40.9 % (30.3-42.9); Hemoglobin 13.8 gm/dl (10.1-14.3); Mean Corpuscular HGB Conc 34 % (30-34); Mean Corpuscular Volume 78 fl (79-97); Platelet Count 177 K/mm3 (140-440); Red Blood Count 5.24 M/mm3 (3.65-5.03); Red Cell Distribution Width 15.5 % (13.2-15.2)
--- NOTE | 2021-02-26 08:53 | Progress Note ---
Assessment and Plan Assessment and plan: 55-year-old female with PmHx of HTN, uterine fibroids and ex-smoker admitted for acute right MCA CVA and STEMI s/p PCI in RCA, now with acute respiratory distress requiring continuous Bipap. Acute right MCA CVA - 02/13/21- CT head shows microvascular angiopathy, decreased attenuation along the posterior right frontal subcortical region, no acute intracranial hemorrhage - 02/13/2021- CTA head shows decreased attenuation along the posterior right frontal lobe, no CT evidence of significant stenosis involving proximal cerebral branches particularly the proximal right MCA - 02/13/21- CTA neck shows mild atherosclerotic calcification involving the proximal internal carotid arteries bilaterally without significant stenosis - MRI brain and MRA brain and neck reveals several scattered foci are recent infarct in both the cerebellum and cerebral hemispheres. No hemorrhage or ad verse mass-effect. Findings likely indicate embolic phenomenon. - Not candidate for any intervention- out of the time window - PT/OT/ST eval - Neurology consulted, appreciate recommendations STEMI s/p PCI in RCA, h/o HTN Rt. Ventricle Thrombus - 02/13/2021 Echo: EF 55%, mild concentric left ventricular Hypertrophy,suspected thrombus in right ventricle - Heparin protocol initiated, ok to transition to warfarin or NOAC on d/c - On Statin, beta-silas, Plavix and aspirin - 02/16 X1 dose rectal ASA- due to NPO status - Strict I&O Acute hypoxic respiratory secondary to COVID COVID-19 Pneumonia Dysphagia - Speech eval completed, pass swallow - Pureed diet with thin liquid order Acute kidney injury - improving - Initial cr. 1.5. Sepsis 2/2 bilateral PNA, COVID PNA Anemia - On heparin gtt per protocol, ASA and plavix - Monitor for s/s of bleeding Hyperglycemia - Lantus increased to 10 units SUBQ Hospital Course to date: 02/16/21- Patient AAOX4, with slurred speech and Lt. sided weakness. MRI/MRA brain pending. Remains on continuous Bipap, failed optiflow trial overnight. Bilateral infiltrate noted on today CXR additional lasix was adminstered to optimize Respiratory status, However was D/C due to marginal BP concern for Hypoperfusion. Will reassess in the Am. Plan to wean off Bipap as tolerated. Patient has been NPO due to continuous Bipap. When patient is off bipap nurse to complete bedside swallow screen, if fail will place NGT so pateint can received PO meds. Low grade temp today, TMAX 101.2 in last 24hrs, Bcult pending, on IV abx, ceftriaxone and azithromycin. COVID swab result pending, ID on the case rec to start dexamethasone 6 mg IV/p.o. daily for 10 days. 02/17/21- COVID PCR can back possible, patient was already on Rocephin and azithromaci, added Remdesevir per protocol, and IV decadron was initiated. Patient was wean to heated high flow, currently on 70% FiO2 and 40L. Wean O2 supplement as tolerated for a SPO2b goal above 88%. Persistent hyperglycemia, lantus increased to 10 units. Speech eval completed, patient pass swallow, order placed for pureed diet with thin liquid. Will continue to monitor, Heparing gtt per protocol, Am labs ordered. 02/18/21-blood sugars this morning over 300. Ordered 10 units of IV insulin once. Added 5 units scheduled insulin in addition to sliding scale insulin. Diet change to diabetic diet. 02/19/21: Transfer to floor. NG tube d/c. 02/20/21: Will get speech therapy to re-evaluate patient to see if patient can be escalated from pureed diet. Cardiology recommendations noted, BB is increased. Continue supportive management for covid 19 pneumonia. HFNC currently at 35 l/min/fio2=60%. Ok with sats > 88%. Attempted to call Durga but voicemail was to another person in chart. Will attempt to find another number to update . 02/21/2021. Patient currently with 35 L of oxygen with an FiO2 of 70%. Continue statin therapy, beta blockers, and DAPT with plavix and aspirin per cardiology recommendation. Continue intravenous heparin, ultimately will be transitioned to long-term warfarin therapy or a NOAC. 02/22/2021. Patient's oxygen requirement has been decreased to 30 L/min via HFNC with FiO2 50%. Continue per ID and pulmonary recommendations. Patient received Actemra 02/17/2021. Complete remdesivir x5 days. Complete dexamethasone IV for 10 days. Cardiology also recommends continued statin therapy, beta-blockers and DAPT with Plavix and aspirin. Continue IV heparin and transition to long-term warfarin or NOAC per cardiology 02/23/2021. Chest x-ray from yesterday is unchanged. Patient currently on high flow nasal cannula 30 L/min with FiO2 35%. Continue per ID and pulmonary recommendations. Patient received Actemra 02/17/2021. Complete remdesivir x5 days. Complete dexamethasone IV for 10 days. Cardiology also recommends continued statin therapy, beta-blockers and DAPT with Plavix and aspirin. Continue IV heparin and transition to long-term warfarin or NOAC per cardiology 02/24/2021. Patient remains on high flow nasal cannula 30 L O2 with FiO2 35%. Patient will complete dexamethasone on 02/26/2021. Patient is s/p remdesivir and Actemra. Continue prone positioning as able. Continue statin therapy, beta- blockers and DAPT with Plavix and aspirin. Continue IV heparin and transition to long-term warfarin or NOAC per cardiology 02/25/2021. Patient on high flow nasal cannula with 15 L and FiO2 of 30%. C ontinue dexamethasone until tomorrow. Patient is s/p remdesivir and Actemra. Continue prone positioning as able. Continue statin therapy, beta-blockers and DAPT with Plavix and aspirin. Continue IV heparin and transition to long-term warfarin or NOAC per cardiology 02/26/2021. Patient on high flow nasal cannula with 15 L and FiO2 of 30%. Continue dexamethasone for total of 14 days per pulmonary recommendations. Patient is s/p remdesivir and Actemra. Continue prone positioning as able. Co ntinue statin therapy, beta-blockers and DAPT with Plavix and aspirin. Continue IV heparin and transition to long-term warfarin or NOAC per cardiology History Interval history: No new issues overnight Hospitalist Physical - Constitutional Vitals: Temp Pulse Resp BP Pulse Ox 97.9 F 79 18 140/95 95 02/26/21 05:03 02/25/21 23:00 02/26/21 05:03 02/26/21 05:03 02/26/21 05:10 General appearance: Present: mild distress, well-nourished - EENT Eyes: Present: PERRL, EOM intact ENT: hearing intact, clear oral mucosa, dentition normal - Neck Neck: Present: supple, normal ROM - Respiratory Respiratory effort: normal Respiratory: bilateral: CTA - Cardiovascular Rhythm: regular Heart Sounds: Present: S1 & S2. Absent: gallop, rub - Extremities Extremities: no ischemia, No edema, Full ROM - Abdominal General gastrointestinal: soft, non-tender, non-distended, normal bowel sounds - Integumentary Integumentary: Present: clear, warm, dry - Neurologic Neurologic: CNII-XII intact, moves all extremities HEART Score - HEART Score Troponin: Troponin T 0.992 ng/mL (0.00-0.029) H* 02/15/21 03:55 Results - Labs CBC & Chem 7: 02/26/21 07:48 02/25/21 05:58 Labs: Laboratory Last Values WBC 6.1 K/mm3 (4.5-11.0) 02/26/21 07:48 RBC 5.24 M/mm3 (3.65-5.03) H 02/26/21 07:48 Hgb 13.8 gm/dl (10.1-14.3) 02/26/21 07:48 Hct 40.9 % (30.3-42.9) 02/26/21 07:48 MCV 78 fl (79-97) L 02/26/21 07:48 MCH 26 pg (28-32) L 02/26/21 07:48 MCHC 34 % (30-34) 02/26/21 07:48 RDW 15.5 % (13.2-15.2) H 02/26/21 07:48 Plt Count 177 K/mm3 (140-440) 02/26/21 07:48 Lymph % (Auto) 17.9 % (13.4-35.0) 02/25/21 05:58 [place] % (Auto) 7.6 % (0.0-7.3) H 02/25/21 05:58 Eos % (Auto) 2.4 % (0.0-4.3) 02/25/21 05:58 Baso % (Auto) 0.8 % (0.0-1.8) 02/25/21 05:58 Lymph # (Auto) 1.5 K/mm3 (1.2-5.4) 02/25/21 05:58 [place] # (Auto) 0.7 K/mm3 (0.0-0.8) 02/25/21 05:58 Eos # (Auto) 0.2 K/mm3 (0.0-0.4) 02/25/21 05:58 Baso # (Auto) 0.1 K/mm3 (0.0-0.1) 02/25/21 05:58 Add Manual Diff Complete 02/20/21 06:39 Total Counted 100 02/20/21 06:39 Seg Neutrophils % 71.3 % (40.0-70.0) H 02/25/21 05:58 Seg Neuts % (Manual) 88.0 % (40.0-70.0) H 02/20/21 06:39 Lymphocytes % (Manual) 4.0 % (13.4-35.0) L 02/20/21 06:39 Reactive Lymphs % (Man) 2.0 % 02/20/21 06:39 Monocytes % (Manual) 3.0 % (0.0-7.3) 02/20/21 06:39 Eosinophils % (Manual) 1.0 % (0.0-4.3) 02/20/21 06:39 Myelocytes % 2.0 % 02/20/21 06:39 Nucleated RBC % Not Reportable 02/20/21 06:39 Seg Neutrophils # 6.1 K/mm3 (1.8-7.7) 02/25/21 05:58 Seg Neutrophils # Man 5.5 K/mm3 (1.8-7.7) 02/20/21 06:39 Band Neutrophils # 0.0 K/mm3 02/20/21 06:39 Lymphocytes # (Manual) 0.2 K/mm3 (1.2-5.4) L 02/20/21 06:39 Abs React Lymphs (Man) 0.1 K/mm3 02/20/21 06:39 Monocytes # (Manual) 0.2 K/mm3 (0.0-0.8) 02/20/21 06:39 Eosinophils # (Manual) 0.1 K/mm3 (0.0-0.4) 02/20/21 06:39 Basophils # (Manual) 0.0 K/mm3 (0.0-0.1) 02/20/21 06:39 Metamyelocytes # 0.0 K/mm3 02/20/21 06:39 Myelocytes # 0.1 K/mm3 02/20/21 06:39 Promyelocytes # 0.0 K/mm3 02/20/21 06:39 Blast Cells # 0.0 K/mm3 02/20/21 06:39 WBC Morphology Not Reportable 02/20/21 06:39 Hypersegmented Neuts Not Reportable 02/20/21 06:39 Hyposegmented Neuts Not Reportable 02/20/21 06:39 Hypogranular Neuts Not Reportable 02/20/21 06:39 Smudge Cells Not Reportable 02/20/21 06:39 Toxic Granulation Not Reportable 02/20/21 06:39 Toxic Vacuolation Not Reportable 02/20/21 06:39 Dohle Bodies Not Reportable 02/20/21 06:39 Pelger-Huet Anomaly Not Reportable 02/20/21 06:39 Aba Rods Not Reportable 02/20/21 06:39 Platelet Estimate Consistent w auto 02/20/21 06:39 Clumped Platelets Not Reportable 02/20/21 06:39 Plt Clumps, EDTA Not Reportable 02/20/21 06:39 Large Platelets Not Reportable 02/20/21 06:39 Giant Platelets Not Reportable 02/20/21 06:39 Platelet Satelliting Not Reportable 02/20/21 06:39 Plt Morphology Comment Not Reportable 02/20/21 06:39 RBC Morphology Normal 02/20/21 06:39 Dimorphic RBCs Not Reportable 02/20/21 06:39 Polychromasia Not Reportable 02/20/21 06:39 Hypochromasia Not Reportable 02/20/21 06:39 Poikilocytosis Not Reportable 02/20/21 06:39 Anisocytosis Not Reportable 02/20/21 06:39 Microcytosis Not Reportable 02/20/21 06:39 Macrocytosis Not Reportable 02/20/21 06:39 Spherocytes Not Reportable 02/20/21 06:39 Pappenheimer Bodies Not Reportable 02/20/21 06:39 Sickle Cells Not Reportable 02/20/21 06:39 Target Cells Not Reportable 02/20/21 06:39 Tear Drop Cells Not Reportable 02/20/21 06:39 Ovalocytes Not Reportable 02/20/21 06:39 Helmet Cells Not Reportable 02/20/21 06:39 [place] Bodies Not Reportable 02/20/21 06:39 [place] Rings Not Reportable 02/20/21 06:39 Santana Cells Not Reportable 02/20/21 06:39 Bite Cells Not Reportable 02/20/21 06:39 Crenated Cell Not Reportable 02/20/21 06:39 Elliptocytes Not Reportable 02/20/21 06:39 Acanthocytes (Spur) Not Reportable 02/20/21 06:39 Rouleaux Not Reportable 02/20/21 06:39 Hemoglobin C Crystals Not Reportable 02/20/21 06:39 Schistocytes Not Reportable 02/20/21 06:39 Malaria parasites Not Reportable 02/20/21 06:39 Alberto Bodies Not Reportable 02/20/21 06:39 Hem Pathologist Commnt No 02/20/21 06:39 PT 14.1 Sec. (12.2-14.9) 02/22/21 15:12 INR 1.03 (0.87-1.13) 02/22/21 15:12 APTT 50.0 Sec. (24.2-36.6) H 02/22/21 15:12 Thrombin Time 17.2 Sec. (15.1-19.6) 02/14/21 20:21 D-Dimer 4275.78 ng/mlDDU (0-234) H 02/20/21 06:39 Heparin Anti-Xa Level 0.32 U.I./ml (0.3-0.7) 02/22/21 06:50 Sodium 143 mmol/L (137-145) 02/25/21 05:58 Potassium 4.2 mmol/L (3.6-5.0) 02/25/21 05:58 Chloride 101.7 mmol/L (98-107) 02/25/21 05:58 Carbon Dioxide 24 mmol/L (22-30) D 02/25/21 05:58 Anion Gap 22 mmol/L 02/25/21 05:58 BUN 18 mg/dL (7-17) H 02/25/21 05:58 Creatinine 0.8 mg/dL (0.6-1.2) 02/25/21 05:58 Estimated GFR > 60 ml/min 02/25/21 05:58 BUN/Creatinine Ratio 23 % 02/25/21 05:58 Glucose 88 mg/dL (65-100) 02/25/21 05:58 POC Glucose 105 mg/dL (70-105) 02/26/21 07:48 Calcium 10.0 mg/dL (8.4-10.2) 02/25/21 05:58 Phosphorus 3.30 mg/dL (2.5-4.5) 02/22/21 06:50 Magnesium 1.80 mg/dL (1.7-2.3) 02/22/21 06:50 Ferritin 915.5 ng/mL (10.0-200.0) H 02/20/21 06:39 Total Bilirubin 0.30 mg/dL (0.1-1.2) 02/20/21 06:39 AST 36 units/L (5-40) 02/20/21 06:39 ALT 27 units/L (7-56) 02/20/21 06:39 Alkaline Phosphatase 74 units/L (35-129) 02/20/21 06:39 Lactate Dehydrogenase 645 units/L (91-180) H 02/20/21 06:39 Troponin T 0.992 ng/mL (0.00-0.029) H* 02/15/21 03:55 C-Reactive Protein 3.60 mg/dL (0.00-1.30) H 02/20/21 06:39 NT-Pro-B Natriuret Pep 4086 pg/mL (0-900) H 02/15/21 08:38 Total Protein 7.0 g/dL (6.3-8.2) 02/20/21 06:39 Albumin 3.1 g/dL (3.9-5) L 02/20/21 06:39 Albumin/Globulin Ratio 0.8 % 02/20/21 06:39 Triglycerides 292 mg/dL (2-149) H 02/14/21 20:21 Cholesterol 199 mg/dL (50-199) 02/14/21 20:21 LDL Cholesterol Direct 105 mg/dL (50-130) 02/14/21 20:21 HDL Cholesterol 23 mg/dL (40-59) L 02/14/21 20:21 Cholesterol/HDL Ratio 8.65 % 02/14/21 20:21 Procalcitonin 0.59 ng/mL (<0.15) 02/15/21 18:20 Coronavirus (PCR) Positive (Negative) A 02/16/21 Unknown Blood Type A POSITIVE 02/14/21 20:21 Antibody Screen Negative 02/14/21 20:21 Taylor/IV: Voiding Method External Female Catheter Active Medications - Current Medications Current Medications: Generic Name Dose Route Start Last Admin Trade Name Freq PRN Reason Stop Dose Admin Acetaminophen 650 mg 02/16/21 01:00 02/16/21 02:09 Acetaminophen 650 Mg Rect Supp MD 650 mg Q6H PRN Administration Pain, Mild (1-3) Hydrocodone Bitart/Acetaminophen 1 each 02/14/21 21:57 02/20/21 18:16 Hydrocodone/Acetaminophen 5-325 Mg Tab PO 1 each Q6H PRN Administration Pain, Moderate (4-6) Albuterol 2.5 mg 02/14/21 21:54 Albuterol 2.5 Mg/3 Ml Nebu IH Q4HRT PRN Shortness Of Breath Lipase/Protease/Amylase 1 each 02/17/21 12:34 Lipase 10,500/Protease 25,000/Amylase 43,750 (Units) Dr Betts FEEDTUBE PRN PRN For Clogged Feeding Tube Apixaban 2.5 mg 02/22/21 22:00 02/25/21 22:53 Apixaban 2.5 Mg Tab PO 2.5 mg Q12HR KARYN Administration Protocol Aspirin 81 mg 02/16/21 12:00 02/25/21 09:59 Aspirin 81 Mg Tab Chew PO 81 mg QDAY KARYN Administration Atorvastatin Calcium 80 mg 02/15/21 22:00 02/25/21 22:54 Atorvastatin 40 Mg Tab PO 80 mg QHS KARYN Administration Clopidogrel Bisulfate 75 mg 02/15/21 10:00 02/25/21 10:00 Clopidogrel 75 Mg Tab PO 75 mg QDAY KARYN Administration Dexamethasone 10 mg 02/17/21 10:00 02/25/21 10:00 Dexamethasone 4 Mg/Ml Vial IV 02/26/21 10:01 10 mg Q24HR KARYN Administration Dextrose 0 ml 02/14/21 21:54 Dextrose 50% In Water (25gm) 50 Ml Syringe IV Q30MIN PRN Hypoglycemia Protocol Docusate Sodium 100 mg 02/14/21 22:04 02/22/21 09:15 Docusate Sodium 100 Mg Cap PO 100 mg DAILY PRN Administration Constip unreliev by MOM/or NPO Famotidine 20 mg 02/21/21 10:00 02/25/21 22:54 Famotidine 20 Mg Tab PO 20 mg BID KARYN Administration Ferrous Sulfate 300 mg 02/21/21 22:00 02/25/21 22:53 Ferrous Sulfate 300 Mg (60mg Elemental Iron) / 5 Ml Oral Liqd FEEDTUBE 300 mg BID KARYN Administration Guaifenesin 100 mg 02/26/21 03:49 Guaifenesin 100 Mg/5 Ml Oral Liqd PO Q4H PRN Cough Hydromorphone HCl 0.5 mg 02/14/21 21:54 02/18/21 22:00 Hydromorphone 1 Mg/1 Ml Inj IV 0.5 mg Q3H PRN Administration Pain , Severe (7-10) Hydrophilic Ointment 1 applic 02/20/21 09:00 Lip Therapy Vaseline TP DIRECT PRN Dry Lips Insulin Glargine 10 units 02/17/21 22:00 02/25/21 22:54 Insulin Glargine 100 Units/Ml SUB-Q 10 units QHS KARYN Administration Insulin Human Lispro 0 unit 02/17/21 22:00 02/25/21 23:07 Insulin Lispro 100 Unit/Ml SUB-Q 6 unit [facility] Administration Protocol Insulin Human Regular 7 units 02/22/21 16:30 02/25/21 23:08 Insulin Regular, Human 100 Units/1 Ml SUB-Q 7 units [facility] Administration Melatonin 5 mg 02/16/21 17:53 02/26/21 03:47 Melatonin 5 Mg Tab PO 5 mg QHS PRN Administration Sleep Metoprolol Tartrate 50 mg 02/19/21 22:00 02/25/21 22:54 Metoprolol Tartrate 50 Mg Tab PO 50 mg BID [facility] Administration Morphine Sulfate 2 mg 02/14/21 21:54 02/26/21 03:48 Morphine 2 Mg/1 Ml Inj IV 2 mg Q4H PRN Administration Pain, Moderate (4-6) Ondansetron HCl 4 mg 02/14/21 21:54 02/17/21 21:38 Ondansetron 4 Mg/2 Ml Inj IV 4 mg Q8H PRN Administration Nausea And Vomiting Simple Syrup 15 ml 02/17/21 12:34 Simple Syrup 15 Ml FEEDTUBE PRN PRN Hypoglycemia Simple Syrup 30 ml 02/17/21 12:34 Simple Syrup 15 Ml FEEDTUBE PRN PRN Hypoglycemia Sodium Bicarbonate 325 mg 02/17/21 12:34 Sodium Bicarbonate 325 Mg Tab FEEDTUBE PRN PRN For Clogged Feeding Tube Sodium Chloride 10 ml 02/14/21 22:00 02/25/21 22:55 Sodium Chloride 0.9% 10 Ml Flush Syringe IV 10 ml BID KARYN Administration Sodium Chloride 10 ml 02/14/21 21:54 Sodium Chloride 0.9% 10 Ml Flush Syringe IV PRN PRN LINE FLUSH Nutrition/Malnutrition Assess - Dietary Evaluation Nutrition/Malnutrition Findings: Nutrition Notes Start: 02/15/21 12:03 Freq: Status: Active Protocol: Document 02/20/21 16:12 GB (Rec: 02/20/21 16:21 GB [id number]) Nutrition Notes Initial or Follow up Reassessment Current Diagnosis Diabetes,Hypertension, Respiratory Failure,Stroke Other Pertinent Diagnosis hyperglycemia, STEMI Current Diet Mechanical soft, thni liquids Labs/Tests 02/20: Na 151, BUN 23, glucose 140, ferritin 915.3 Pertinent Medications ferrous sulfate, NaCl/Hep, NaCl, remdesivir Height 5 ft 4 in Weight 104.3 kg [place] Body Weight (kg) 54.54 BMI 39.4 Weight change and time frame no significant changes at this time Weight Status Obese Subjective/Other Information per MD ntoes 02/20: NG d/c 02/19 . EPIC PRELUDE ANALYST eval advanced diet texture to mechanical soft thin liquids. PO recorded 25% x 1 meal. Adding glucerna BID for additional calories/ protein while po intake recovers. Percent of energy/protein needs met: PO intake of meals and supplement 50% or greater will meet 75% or greater of estimated energy needs. Burn Absent Trauma Absent GI Symptoms None Difficulty In Swallowing Food Allergy No Current % PO Poor (25-49%) Minimum of two criteria No #2 Nutrition Diagnosis Inadequate energy intake Etiology DM, collapse As Evidenced by Signs and Symptoms Recent advancement to PO intake with mechanically altered texture diet, NG d/c , need for nutritional supplement beverage to meet estimated energy needs. #1 Nutrition Diagnosis Other: (Specify in comment below) Comments: Comprimised PO intake, dependency for enteral feed to meet nutrition needs Etiology DM, collapse, As Evidenced by Signs and Symptoms not able to eat PO at this time, MD order for TF Diagnosis Progress(for reassessment Resolved documentation) Is patient on ventilator? No Is Patient Ambulatory and/or Out of Bed Yes REE-([place]. Jeor-ambulatory/OOB) [ 2103.400 [id number]] Kcal/Kg value to use for calculation 17 Approximate Energy Requirements Using 1773 kcal/Kg Calculation Used for Recommendations Kcal/kg Additional Notes Protein: 0.7-1 g/kg @ 104k-104g Fluids: 1 ml/kcal or per MD Nutrition Intervention Change Diet Order: Continue with current diet advancing texture per EPIC PRELUDE ANALYST Nutrition Support: n/a Add Supplement/Snack (indicate name/kcal glucerna BID /protein ) Provides kCal: 440 Provides Protein (gm) 20 Goal #1 PO intake of meals to improve to 50% or greater during LOS Goal #2 weight to maintain within -3% current weight for LOS Goal #3 PO intake of nutritional supplement beverage to be 50% or greater BID daily during LOS Follow-Up By: 02/27/21 Additional Comments Follow PO intake of meals/ supplements
--- NOTE | 2021-02-26 09:12 | Progress Note ---
Assessment and Plan 1. 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 Bilateral pneumonia secondary to Covid 3. Acute renal failure resolved 4. CVA with left hemiparesis 5. Type 2 diabetes mellitus Plan. Cardiac padilla stable asymptomatic continue present cardiac management plan Subjective Date of service: 02/26/21 Principal diagnosis: Covid-19 Interval history: No cardiac complains. Objective Vital Signs Temp Pulse Resp BP Pulse Ox 02/26/21 05:10 95 02/26/21 05:03 97.9 F 18 140/95 02/25/21 23:09 98.3 F 20 135/91 02/25/21 23:00 79 96 02/25/21 22:00 96 02/25/21 20:40 98 02/25/21 17:05 98.2 F 73 24 110/71 95 02/25/21 14:52 97 02/25/21 12:23 98.3 F 92 H 24 112/69 93 02/25/21 12:00 79 02/25/21 10:57 91 02/25/21 10:00 96 02/25/21 09:59 86 - Physical Examination General: No Apparent Distress HEENT: Positive: PERRL Neck: Positive: trachea midline. Negative: JVD/HJR Cardiac: Positive: Regular Rate, S1/S2, PMI, Laterally Displaced. Negative: S3, S4 Lungs: Positive: clear to auscultation, No Wheeze, Rales, Rhonchi Neuro: Positive: Other (Left hemiparesis) Abdomen: Positive: Unremarkable Extremities: Absent: edema - Labs and Meds CBC 02/26/21 Range/Units 07:48 WBC 6.1 (4.5-11.0) K/mm3 RBC 5.24 H (3.65-5.03) M/mm3 Hgb 13.8 (10.1-14.3) gm/dl Hct 40.9 (30.3-42.9) % Plt Count 177 (140-440) K/mm3 - Imaging and Cardiology Echo: other (02/14/2021 Echo - Normal LV and RV systolic function, thrombus in RV)
[2021-02-26] MEDS: INSULIN LISPRO 100 UNIT/ML SUB-Q SCH ×4 (09:21→23:21)
[2021-02-26] MEDS: INSULIN REGULAR, HUMAN 100 UNITS/1 ML SUB-Q SCH ×4 (09:21→23:23)
[2021-02-26] MEDS: CLOPIDOGREL 75 MG TAB PO SCH (11:24)
[2021-02-26] MEDS: FAMOTIDINE 20 MG TAB PO SCH ×2 (11:24→23:28)
[2021-02-26] MEDS: ASPIRIN 81 MG TAB CHEW PO SCH (11:24)
[2021-02-26] MEDS: APIXABAN 2.5 MG TAB PO SCH ×2 (11:24→23:23)
[2021-02-26] MEDS: FERROUS SULFATE 300 MG (60MG Elemental Iron) / 5 mL ORAL LIQD FEEDTUBE SCH ×2 (11:25→23:22)
[2021-02-26] MEDS: dexAMETHasone 4 MG/ML VIAL IV SCH (11:25)
[2021-02-26] MEDS: METOPROLOL TARTRATE 50 MG TAB PO SCH ×2 (11:41→23:25)
--- NOTE | 2021-02-26 22:47 | Progress Note ---
Assessment and Plan Imp: 1. Covid-19 2. Viral pneumonia 3. Acute respiratory failure, hypoxia 4. Obesity 5. STEMI Rec: 1. S/p Actemra and Remdesivir 2. 10-14 days of Decadron 3. On Eliquis/Plavix; cardiology following 4. Wean HFNC to keep sats 88% or > 5. Prognosis guarded Subjective Date of service: 02/26/21 Principal diagnosis: Covid-19 Interval history: No apparent events. On HFNC 15LPM and 25FiO2. + SOB. Active Medications Acetaminophen (Acetaminophen 650 Mg Rect Supp) 650 mg [place] Q6H PRN PRN Reason: Pain, Mild (1-3) Last Admin: 02/16/21 02:09 Dose: 650 mg Documented by: Hydrocodone Bitart/Acetaminophen (Hydrocodone/Acetaminophen 5-325 Mg Tab) 1 each PO Q6H PRN PRN Reason: Pain, Moderate (4-6) Last Admin: 02/20/21 18:16 Dose: 1 each Documented by: Albuterol (Albuterol 2.5 Mg/3 Ml Nebu) 2.5 mg IH Q4HRT PRN PRN Reason: Shortness Of Breath Lipase/Protease/Amylase (Lipase 10,500/Protease 25,000/Amylase 43,750 (Units) Dr Betts) 1 each FEEDTUBE PRN PRN PRN Reason: For Clogged Feeding Tube Apixaban (Apixaban 2.5 Mg Tab) 2.5 mg PO Q12HR [facility]; Protocol Last Admin: 02/26/21 11:24 Dose: 2.5 mg Documented by: Aspirin (Aspirin 81 Mg Tab Chew) 81 mg PO QDAY [facility] Last Admin: 02/26/21 11:24 Dose: 81 mg Documented by: Atorvastatin Calcium (Atorvastatin 40 Mg Tab) 80 mg PO QHS [facility] Last Admin: 02/25/21 22:54 Dose: 80 mg Documented by: Clopidogrel Bisulfate (Clopidogrel 75 Mg Tab) 75 mg PO QDAY [facility] Last Admin: 02/26/21 11:24 Dose: 75 mg Documented by: Dextrose (Dextrose 50% In Water (25gm) 50 Ml Syringe) 0 ml IV Q30MIN PRN; Protocol PRN Reason: Hypoglycemia Docusate Sodium (Docusate Sodium 100 Mg Cap) 100 mg PO DAILY PRN PRN Reason: Constip unreliev by MOM/or NPO Last Admin: 02/22/21 09:15 Dose: 100 mg Documented by: Famotidine (Famotidine 20 Mg Tab) 20 mg PO BID [facility] Last Admin: 02/26/21 11:24 Dose: 20 mg Documented by: Ferrous Sulfate (Ferrous Sulfate 300 Mg (60mg Elemental Iron) / 5 Ml Oral Liqd) 300 mg FEEDTUBE BID [facility] Last Admin: 02/26/21 11:25 Dose: 300 mg Documented by: Guaifenesin (Guaifenesin 100 Mg/5 Ml Oral Liqd) 100 mg PO Q4H PRN PRN Reason: Cough Hydromorphone HCl (Hydromorphone 1 Mg/1 Ml Inj) 0.5 mg IV Q3H PRN PRN Reason: Pain , Severe (7-10) Last Admin: 02/18/21 22:00 Dose: 0.5 mg Documented by: Hydrophilic Ointment (Lip Therapy Vaseline) 1 applic TP DIRECT PRN PRN Reason: Dry Lips Insulin Glargine (Insulin Glargine 100 Units/Ml) 10 units SUB-Q QHS [facility] Last Admin: 02/25/21 22:54 Dose: 10 units Documented by: Insulin Human Lispro (Insulin Lispro 100 Unit/Ml) 0 unit SUB-Q [facility]; Protocol Last Admin: 02/26/21 18:28 Dose: 6 unit Documented by: Insulin Human Regular (Insulin Regular, Human 100 Units/1 Ml) 7 units SUB-Q [facility] Last Admin: 02/26/21 18:29 Dose: 7 units Documented by: Melatonin (Melatonin 5 Mg Tab) 5 mg PO QHS PRN PRN Reason: Sleep Last Admin: 02/26/21 03:47 Dose: 5 mg Documented by: Metoprolol Tartrate (Metoprolol Tartrate 50 Mg Tab) 50 mg PO BID [facility] Last Admin: 02/26/21 11:41 Dose: 50 mg Documented by: Morphine Sulfate (Morphine 2 Mg/1 Ml Inj) 2 mg IV Q4H PRN PRN Reason: Pain, Moderate (4-6) Last Admin: 02/26/21 03:48 Dose: 2 mg Documented by: Ondansetron HCl (Ondansetron 4 Mg/2 Ml Inj) 4 mg IV Q8H PRN PRN Reason: Nausea And Vomiting Last Admin: 02/17/21 21:38 Dose: 4 mg Documented by: Simple Syrup (Simple Syrup 15 Ml) 15 ml FEEDTUBE PRN PRN PRN Reason: Hypoglycemia Simple Syrup (Simple Syrup 15 Ml) 30 ml FEEDTUBE PRN PRN PRN Reason: Hypoglycemia Sodium Bicarbonate (Sodium Bicarbonate 325 Mg Tab) 325 mg FEEDTUBE PRN PRN PRN Reason: For Clogged Feeding Tube Sodium Chloride (Sodium Chloride 0.9% 10 Ml Flush Syringe) 10 ml IV BID [facility] Last Admin: 02/26/21 11:26 Dose: 10 ml Documented by: Sodium Chloride (Sodium Chloride 0.9% 10 Ml Flush Syringe) 10 ml IV PRN PRN PRN Reason: LINE FLUSH Objective - Exam Narrative Exam: Exam deferred to preserve PPE and decrease transmission of virus. Reviewed primary team exam. Vital Signs - 12hr 02/26/21 02/26/21 02/26/21 11:17 11:41 13:43 Temperature 98.9 F Pulse Rate 88 91 H Respiratory 24 Rate Blood Pressure 92/54 116/84 O2 Sat by Pulse 94 98 Oximetry 02/26/21 02/26/21 02/26/21 18:05 20:00 20:47 Temperature 97.7 F Pulse Rate 79 79 Respiratory 24 18 Rate Blood Pressure 121/68 O2 Sat by Pulse 91 95 Oximetry 02/26/21 21:52 Temperature 98.7 F Pulse Rate 92 H Respiratory 20 Rate Blood Pressure 140/90 O2 Sat by Pulse 93 Oximetry Gastrointestinal: normoactive bowel sounds Integumentary: normal CBC and BMP: 02/26/21 07:48 02/25/21 05:58 ABG, PT/INR, D-dimer: PT/INR, D-dimer PT 14.1 Sec. (12.2-14.9) 02/22/21 15:12 INR 1.03 (0.87-1.13) 02/22/21 15:12 D-Dimer 4275.78 ng/mlDDU (0-234) H 02/20/21 06:39 Abnormal lab findings: Abnormal Labs 02/14/21 02/14/21 02/14/21 20:21 20:21 20:21 WBC 15.6 H RBC 5.55 H Hgb Hct 43.3 H MCV 78 L MCH 26 L MCHC RDW 16.3 H Lymph % (Auto) [place] % (Auto) Lymph # (Auto) Seg Neutrophils % Seg Neuts % (Manual) 96.0 H Lymphocytes % (Manual) 3.0 L Seg Neutrophils # Seg Neutrophils # Man 15.0 H Lymphocytes # (Manual) 0.5 L PT 16.7 H INR 1.30 H APTT D-Dimer Heparin Anti-Xa Level Sodium 131 L Potassium 5.1 H Chloride 88.4 L Carbon Dioxide 20 L BUN 34 H Creatinine 1.5 H Glucose 574 H* POC Glucose Magnesium Ferritin AST Lactate Dehydrogenase Troponin T 0.882 H* C-Reactive Protein NT-Pro-B Natriuret Pep Albumin Triglycerides 292 H HDL Cholesterol 23 L Coronavirus (PCR) 02/14/21 02/14/21 02/14/21 20:21 23:11 23:20 WBC RBC Hgb Hct MCV MCH MCHC RDW Lymph % (Auto) [place] % (Auto) Lymph # (Auto) Seg Neutrophils % Seg Neuts % (Manual) Lymphocytes % (Manual) Seg Neutrophils # Seg Neutrophils # Man Lymphocytes # (Manual) PT INR APTT D-Dimer Heparin Anti-Xa Level Sodium Potassium Chloride Carbon Dioxide BUN Creatinine Glucose POC Glucose 562 H 422 H Magnesium Ferritin AST Lactate Dehydrogenase Troponin T 0.892 H* C-Reactive Protein NT-Pro-B Natriuret Pep Albumin Triglycerides HDL Cholesterol Coronavirus (PCR) 02/15/21 02/15/21 02/15/21 03:55 03:55 05:29 WBC RBC 5.17 H Hgb Hct MCV 77 L MCH 26 L MCHC RDW 15.8 H Lymph % (Auto) 4.9 L [place] % (Auto) Lymph # (Auto) 0.5 L Seg Neutrophils % 89.2 H Seg Neuts % (Manual) Lymphocytes % (Manual) Seg Neutrophils # 8.4 H Seg Neutrophils # Man Lymphocytes # (Manual) PT INR APTT D-Dimer Heparin Anti-Xa Level Sodium 136 L Potassium Chloride 97.3 L Carbon Dioxide 18 L BUN 33 H Creatinine Glucose 402 H POC Glucose 345 H Magnesium Ferritin AST 46 H Lactate Dehydrogenase Troponin T 0.992 H* C-Reactive Protein NT-Pro-B Natriuret Pep Albumin 3.0 L Triglycerides HDL Cholesterol Coronavirus (PCR) 02/15/21 02/15/21 02/15/21 08:38 08:38 08:38 WBC RBC Hgb Hct MCV 75 L MCH 26 L MCHC 35 H RDW 16.2 H Lymph % (Auto) [place] % (Auto) Lymph # (Auto) Seg Neutrophils % Seg Neuts % (Manual) Lymphocytes % (Manual) Seg Neutrophils # Seg Neutrophils # Man Lymphocytes # (Manual) PT INR APTT D-Dimer Heparin Anti-Xa Level Sodium 135 L Potassium Chloride Carbon Dioxide 19 L BUN 31 H Creatinine Glucose 360 H POC Glucose Magnesium 2.50 H Ferritin AST Lactate Dehydrogenase Troponin T C-Reactive Protein NT-Pro-B Natriuret Pep 4086 H Albumin Triglycerides HDL Cholesterol Coronavirus (PCR) 02/15/21 02/15/21 02/15/21 11:15 17:28 18:20 WBC RBC Hgb Hct MCV MCH MCHC RDW Lymph % (Auto) [place] % (Auto) Lymph # (Auto) Seg Neutrophils % Seg Neuts % (Manual) Lymphocytes % (Manual) Seg Neutrophils # Seg Neutrophils # Man Lymphocytes # (Manual) PT INR APTT D-Dimer > 20128 H Heparin Anti-Xa Level Sodium Potassium Chloride Carbon Dioxide BUN Creatinine Glucose POC Glucose 317 H 311 H Magnesium Ferritin AST Lactate Dehydrogenase Troponin T C-Reactive Protein NT-Pro-B Natriuret Pep Albumin Triglycerides HDL Cholesterol Coronavirus (PCR) 02/15/21 02/15/21 02/15/21 18:20 18:20 18:20 WBC RBC Hgb Hct MCV MCH MCHC RDW Lymph % (Auto) [place] % (Auto) Lymph # (Auto) Seg Neutrophils % Seg Neuts % (Manual) Lymphocytes % (Manual) Seg Neutrophils # Seg Neutrophils # Man Lymphocytes # (Manual) PT 15.8 H INR 1.20 H APTT D-Dimer Heparin Anti-Xa Level Sodium Potassium Chloride Carbon Dioxide BUN Creatinine Glucose POC Glucose Magnesium Ferritin 837.7 H AST Lactate Dehydrogenase 766 H Troponin T C-Reactive Protein 21.50 H NT-Pro-B Natriuret Pep Albumin Triglycerides HDL Cholesterol Coronavirus (PCR) 02/15/21 02/16/21 02/16/21 23:45 02:44 02:44 WBC RBC Hgb Hct MCV 77 L MCH 26 L MCHC RDW 16.0 H Lymph % (Auto) [place] % (Auto) Lymph # (Auto) Seg Neutrophils % Seg Neuts % (Manual) Lymphocytes % (Manual) Seg Neutrophils # Seg Neutrophils # Man Lymphocytes # (Manual) PT INR APTT D-Dimer Heparin Anti-Xa Level Sodium Potassium Chloride Carbon Dioxide BUN 27 H Creatinine Glucose 269 H POC Glucose 203 H Magnesium Ferritin AST Lactate Dehydrogenase Troponin T C-Reactive Protein NT-Pro-B Natriuret Pep Albumin Triglycerides HDL Cholesterol Coronavirus (PCR) 02/16/21 02/16/21 02/16/21 05:47 11:50 15:00 WBC RBC Hgb Hct MCV MCH MCHC RDW Lymph % (Auto) [place] % (Auto) Lymph # (Auto) Seg Neutrophils % Seg Neuts % (Manual) Lymphocytes % (Manual) Seg Neutrophils # Seg Neutrophils # Man Lymphocytes # (Manual) PT INR APTT D-Dimer Heparin Anti-Xa Level < 0.10 L Sodium Potassium Chloride Carbon Dioxide BUN Creatinine Glucose POC Glucose 275 H 251 H Magnesium Ferritin AST Lactate Dehydrogenase Troponin T C-Reactive Protein NT-Pro-B Natriuret Pep Albumin Triglycerides HDL Cholesterol Coronavirus (PCR) 02/16/21 02/16/21 02/16/21 18:23 23:30 23:57 WBC RBC Hgb Hct MCV MCH MCHC RDW Lymph % (Auto) [place] % (Auto) Lymph # (Auto) Seg Neutrophils % Seg Neuts % (Manual) Lymphocytes % (Manual) Seg Neutrophils # Seg Neutrophils # Man Lymphocytes # (Manual) PT INR APTT D-Dimer Heparin Anti-Xa Level < 0.10 L Sodium Potassium Chloride Carbon Dioxide BUN Creatinine Glucose POC Glucose 237 H 249 H Magnesium Ferritin AST Lactate Dehydrogenase Troponin T C-Reactive Protein NT-Pro-B Natriuret Pep Albumin Triglycerides HDL Cholesterol Coronavirus (PCR) 02/16/21 02/17/21 02/17/21 Unknown 05:25 06:18 WBC RBC Hgb Hct MCV MCH MCHC RDW Lymph % (Auto) [place] % (Auto) Lymph # (Auto) Seg Neutrophils % Seg Neuts % (Manual) Lymphocytes % (Manual) Seg Neutrophils # Seg Neutrophils # Man Lymphocytes # (Manual) PT INR APTT D-Dimer Heparin Anti-Xa Level Sodium Potassium Chloride Carbon Dioxide BUN Creatinine Glucose POC Glucose 238 H 229 H Magnesium Ferritin AST Lactate Dehydrogenase Troponin T C-Reactive Protein NT-Pro-B Natriuret Pep Albumin Triglycerides HDL Cholesterol Coronavirus (PCR) Positive A 02/17/21 02/17/21 02/17/21 11:35 13:30 13:30 WBC RBC Hgb Hct MCV MCH MCHC RDW Lymph % (Auto) [place] % (Auto) Lymph # (Auto) Seg Neutrophils % Seg Neuts % (Manual) Lymphocytes % (Manual) Seg Neutrophils # Seg Neutrophils # Man Lymphocytes # (Manual) PT INR APTT D-Dimer Heparin Anti-Xa Level 0.29 L Sodium 146 H D Potassium Chloride 107.3 H Carbon Dioxide BUN 29 H Creatinine Glucose 334 H POC Glucose 279 H Magnesium Ferritin AST Lactate Dehydrogenase Troponin T C-Reactive Protein NT-Pro-B Natriuret Pep Albumin Triglycerides HDL Cholesterol Coronavirus (PCR) 02/17/21 02/17/21 02/17/21 13:30 13:30 16:42 WBC RBC Hgb Hct MCV 77 L MCH 25 L MCHC RDW 16.1 H Lymph % (Auto) [place] % (Auto) Lymph # (Auto) Seg Neutrophils % Seg Neuts % (Manual) Lymphocytes % (Manual) Seg Neutrophils # Seg Neutrophils # Man Lymphocytes # (Manual) PT INR APTT D-Dimer Heparin Anti-Xa Level Sodium 146 H Potassium Chloride Carbon Dioxide BUN 29 H Creatinine Glucose 340 H POC Glucose 291 H Magnesium Ferritin AST Lactate Dehydrogenase Troponin T C-Reactive Protein NT-Pro-B Natriuret Pep Albumin 2.7 L Triglycerides HDL Cholesterol Coronavirus (PCR) 02/17/21 02/18/21 02/18/21 21:43 04:40 04:40 WBC RBC Hgb Hct MCV 78 L MCH 26 L MCHC RDW 16.3 H Lymph % (Auto) [place] % (Auto) Lymph # (Auto) Seg Neutrophils % Seg Neuts % (Manual) Lymphocytes % (Manual) Seg Neutrophils # Seg Neutrophils # Man Lymphocytes # (Manual) PT INR APTT D-Dimer Heparin Anti-Xa Level Sodium 149 H Potassium Chloride 108.9 H Carbon Dioxide BUN 34 H Creatinine Glucose 318 H POC Glucose 288 H Magnesium Ferritin AST Lactate Dehydrogenase Troponin T C-Reactive Protein 14.50 H NT-Pro-B Natriuret Pep Albumin 3.0 L Triglycerides HDL Cholesterol Coronavirus (PCR) 02/18/21 02/18/21 02/18/21 04:40 08:02 11:30 WBC RBC Hgb Hct MCV MCH MCHC RDW Lymph % (Auto) [place] % (Auto) Lymph # (Auto) Seg Neutrophils % Seg Neuts % (Manual) Lymphocytes % (Manual) Seg Neutrophils # Seg Neutrophils # Man Lymphocytes # (Manual) PT INR APTT D-Dimer 3846.94 H Heparin Anti-Xa Level Sodium Potassium Chloride Carbon Dioxide BUN Creatinine Glucose POC Glucose 263 H 309 H Magnesium Ferritin AST Lactate Dehydrogenase Troponin T C-Reactive Protein NT-Pro-B Natriuret Pep Albumin Triglycerides HDL Cholesterol Coronavirus (PCR) 02/18/21 02/18/21 02/18/21 12:29 21:56 22:34 WBC RBC Hgb Hct MCV MCH MCHC RDW Lymph % (Auto) [place] % (Auto) Lymph # (Auto) Seg Neutrophils % Seg Neuts % (Manual) Lymphocytes % (Manual) Seg Neutrophils # Seg Neutrophils # Man Lymphocytes # (Manual) PT INR APTT D-Dimer Heparin Anti-Xa Level 0.29 L Sodium Potassium Chloride Carbon Dioxide BUN Creatinine Glucose POC Glucose 313 H 284 H Magnesium Ferritin AST Lactate Dehydrogenase Troponin T C-Reactive Protein NT-Pro-B Natriuret Pep Albumin Triglycerides HDL Cholesterol Coronavirus (PCR) 02/18/21 02/19/21 02/19/21 23:52 06:11 07:54 WBC RBC Hgb Hct MCV MCH MCHC RDW Lymph % (Auto) [place] % (Auto) Lymph # (Auto) Seg Neutrophils % Seg Neuts % (Manual) Lymphocytes % (Manual) Seg Neutrophils # Seg Neutrophils # Man Lymphocytes # (Manual) PT INR APTT D-Dimer Heparin Anti-Xa Level Sodium 151 H Potassium Chloride 110.6 H Carbon Dioxide BUN 28 H Creatinine Glucose 191 H POC Glucose 272 H 155 H Magnesium Ferritin AST Lactate Dehydrogenase Troponin T C-Reactive Protein NT-Pro-B Natriuret Pep Albumin 3.0 L Triglycerides HDL Cholesterol Coronavirus (PCR) 02/19/21 02/19/21 02/19/21 12:37 16:29 21:28 WBC RBC Hgb Hct MCV MCH MCHC RDW Lymph % (Auto) [place] % (Auto) Lymph # (Auto) Seg Neutrophils % Seg Neuts % (Manual) Lymphocytes % (Manual) Seg Neutrophils # Seg Neutrophils # Man Lymphocytes # (Manual) PT INR APTT D-Dimer Heparin Anti-Xa Level Sodium Potassium Chloride Carbon Dioxide BUN Creatinine Glucose POC Glucose 233 H 268 H 298 H Magnesium Ferritin AST Lactate Dehydrogenase Troponin T C-Reactive Protein NT-Pro-B Natriuret Pep Albumin Triglycerides HDL Cholesterol Coronavirus (PCR) 02/19/21 02/20/21 02/20/21 23:34 06:39 06:39 WBC RBC 5.08 H Hgb Hct MCV 77 L MCH 25 L MCHC RDW 16.0 H Lymph % (Auto) [place] % (Auto) Lymph # (Auto) Seg Neutrophils % Seg Neuts % (Manual) 88.0 H Lymphocytes % (Manual) 4.0 L Seg Neutrophils # Seg Neutrophils # Man Lymphocytes # (Manual) 0.2 L PT INR APTT D-Dimer 4275.78 H Heparin Anti-Xa Level 0.26 L Sodium Potassium Chloride Carbon Dioxide BUN Creatinine Glucose POC Glucose Magnesium Ferritin AST Lactate Dehydrogenase Troponin T C-Reactive Protein NT-Pro-B Natriuret Pep Albumin Triglycerides HDL Cholesterol Coronavirus (PCR) 02/20/21 02/20/21 02/20/21 06:39 06:39 08:45 WBC RBC Hgb Hct MCV MCH MCHC RDW Lymph % (Auto) [place] % (Auto) Lymph # (Auto) Seg Neutrophils % Seg Neuts % (Manual) Lymphocytes % (Manual) Seg Neutrophils # Seg Neutrophils # Man Lymphocytes # (Manual) PT INR APTT D-Dimer Heparin Anti-Xa Level Sodium 152 H 151 H Potassium Chloride 112.0 H 111.4 H Carbon Dioxide 31 H BUN 23 H 23 H Creatinine Glucose 119 H 140 H POC Glucose Magnesium Ferritin 915.5 H AST Lactate Dehydrogenase 645 H Troponin T C-Reactive Protein 3.60 H NT-Pro-B Natriuret Pep Albumin 3.1 L Triglycerides HDL Cholesterol Coronavirus (PCR) 02/20/21 02/20/21 02/20/21 11:57 18:01 22:20 WBC RBC Hgb Hct MCV MCH MCHC RDW Lymph % (Auto) [place] % (Auto) Lymph # (Auto) Seg Neutrophils % Seg Neuts % (Manual) Lymphocytes % (Manual) Seg Neutrophils # Seg Neutrophils # Man Lymphocytes # (Manual) PT INR APTT D-Dimer Heparin Anti-Xa Level Sodium Potassium Chloride Carbon Dioxide BUN Creatinine Glucose POC Glucose 217 H 337 H 379 H Magnesium Ferritin AST Lactate Dehydrogenase Troponin T C-Reactive Protein NT-Pro-B Natriuret Pep Albumin Triglycerides HDL Cholesterol Coronavirus (PCR) 02/21/21 02/21/21 02/21/21 07:43 11:42 16:30 WBC RBC Hgb Hct MCV MCH MCHC RDW Lymph % (Auto) [place] % (Auto) Lymph # (Auto) Seg Neutrophils % Seg Neuts % (Manual) Lymphocytes % (Manual) Seg Neutrophils # Seg Neutrophils # Man Lymphocytes # (Manual) PT INR APTT D-Dimer Heparin Anti-Xa Level Sodium Potassium Chloride Carbon Dioxide BUN Creatinine Glucose POC Glucose 152 H 206 H 235 H Magnesium Ferritin AST Lactate Dehydrogenase Troponin T C-Reactive Protein NT-Pro-B Natriuret Pep Albumin Triglycerides HDL Cholesterol Coronavirus (PCR) 02/21/21 02/22/21 02/22/21 21:56 05:51 06:50 WBC RBC Hgb Hct MCV MCH MCHC RDW Lymph % (Auto) [place] % (Auto) Lymph # (Auto) Seg Neutrophils % Seg Neuts % (Manual) Lymphocytes % (Manual) Seg Neutrophils # Seg Neutrophils # Man Lymphocytes # (Manual) PT INR APTT D-Dimer Heparin Anti-Xa Level Sodium Potassium 3.5 L Chloride Carbon Dioxide 31 H BUN 19 H Creatinine Glucose 118 H POC Glucose 205 H 121 H Magnesium Ferritin AST Lactate Dehydrogenase Troponin T C-Reactive Protein NT-Pro-B Natriuret Pep Albumin Triglycerides HDL Cholesterol Coronavirus (PCR) 02/22/21 02/22/21 02/22/21 07:55 11:47 15:12 WBC RBC Hgb Hct MCV 76 L MCH 26 L MCHC RDW Lymph % (Auto) [place] % (Auto) Lymph # (Auto) Seg Neutrophils % Seg Neuts % (Manual) Lymphocytes % (Manual) Seg Neutrophils # Seg Neutrophils # Man Lymphocytes # (Manual) PT INR APTT D-Dimer Heparin Anti-Xa Level Sodium Potassium Chloride Carbon Dioxide BUN Creatinine Glucose POC Glucose 148 H 216 H Magnesium Ferritin AST Lactate Dehydrogenase Troponin T C-Reactive Protein NT-Pro-B Natriuret Pep Albumin Triglycerides HDL Cholesterol Coronavirus (PCR) 02/22/21 02/22/21 02/22/21 15:12 17:55 22:01 WBC RBC Hgb Hct MCV MCH MCHC RDW Lymph % (Auto) [place] % (Auto) Lymph # (Auto) Seg Neutrophils % Seg Neuts % (Manual) Lymphocytes % (Manual) Seg Neutrophils # Seg Neutrophils # Man Lymphocytes # (Manual) PT INR APTT 50.0 H D-Dimer Heparin Anti-Xa Level Sodium Potassium Chloride Carbon Dioxide BUN Creatinine Glucose POC Glucose 327 H 173 H Magnesium Ferritin AST Lactate Dehydrogenase Troponin T C-Reactive Protein NT-Pro-B Natriuret Pep Albumin Triglycerides HDL Cholesterol Coronavirus (PCR) 02/23/21 02/23/21 02/23/21 07:36 10:32 15:49 WBC RBC Hgb Hct MCV MCH MCHC RDW Lymph % (Auto) [place] % (Auto) Lymph # (Auto) Seg Neutrophils % Seg Neuts % (Manual) Lymphocytes % (Manual) Seg Neutrophils # Seg Neutrophils # Man Lymphocytes # (Manual) PT INR APTT D-Dimer Heparin Anti-Xa Level Sodium Potassium Chloride Carbon Dioxide BUN Creatinine Glucose POC Glucose 149 H 240 H 338 H Magnesium Ferritin AST Lactate Dehydrogenase Troponin T C-Reactive Protein NT-Pro-B Natriuret Pep Albumin Triglycerides HDL Cholesterol Coronavirus (PCR) 02/23/21 02/24/21 02/24/21 21:20 05:42 07:45 WBC RBC 5.26 H Hgb Hct MCV 77 L MCH 25 L MCHC RDW Lymph % (Auto) [place] % (Auto) Lymph # (Auto) Seg Neutrophils % Seg Neuts % (Manual) Lymphocytes % (Manual) Seg Neutrophils # Seg Neutrophils # Man Lymphocytes # (Manual) PT INR APTT D-Dimer Heparin Anti-Xa Level Sodium Potassium Chloride Carbon Dioxide BUN Creatinine Glucose POC Glucose 311 H 118 H Magnesium Ferritin AST Lactate Dehydrogenase Troponin T C-Reactive Protein NT-Pro-B Natriuret Pep Albumin Triglycerides HDL Cholesterol Coronavirus (PCR) 02/24/21 02/24/21 02/24/21 12:28 16:27 22:20 WBC RBC Hgb Hct MCV MCH MCHC RDW Lymph % (Auto) [place] % (Auto) Lymph # (Auto) Seg Neutrophils % Seg Neuts % (Manual) Lymphocytes % (Manual) Seg Neutrophils # Seg Neutrophils # Man Lymphocytes # (Manual) PT INR APTT D-Dimer Heparin Anti-Xa Level Sodium Potassium Chloride Carbon Dioxide BUN Creatinine Glucose POC Glucose 240 H 446 H 246 H Magnesium Ferritin AST Lactate Dehydrogenase Troponin T C-Reactive Protein NT-Pro-B Natriuret Pep Albumin Triglycerides HDL Cholesterol Coronavirus (PCR) 02/25/21 02/25/21 02/25/21 05:58 05:58 12:24 WBC RBC 5.72 H Hgb 14.5 H Hct 44.0 H MCV 77 L MCH 25 L MCHC RDW 15.5 H Lymph % (Auto) [place] % (Auto) 7.6 H Lymph # (Auto) Seg Neutrophils % 71.3 H Seg Neuts % (Manual) Lymphocytes % (Manual) Seg Neutrophils # Seg Neutrophils # Man Lymphocytes # (Manual) PT INR APTT D-Dimer Heparin Anti-Xa Level Sodium Potassium Chloride Carbon Dioxide BUN 18 H Creatinine Glucose POC Glucose 248 H Magnesium Ferritin AST Lactate Dehydrogenase Troponin T C-Reactive Protein NT-Pro-B Natriuret Pep Albumin Triglycerides HDL Cholesterol Coronavirus (PCR) 02/25/21 02/25/21 02/26/21 17:06 21:25 07:48 WBC RBC 5.24 H Hgb Hct MCV 78 L MCH 26 L MCHC RDW 15.5 H Lymph % (Auto) [place] % (Auto) Lymph # (Auto) Seg Neutrophils % Seg Neuts % (Manual) Lymphocytes % (Manual) Seg Neutrophils # Seg Neutrophils # Man Lymphocytes # (Manual) PT INR APTT D-Dimer Heparin Anti-Xa Level Sodium Potassium Chloride Carbon Dioxide BUN Creatinine Glucose POC Glucose 335 H 256 H Magnesium Ferritin AST Lactate Dehydrogenase Troponin T C-Reactive Protein NT-Pro-B Natriuret Pep Albumin Triglycerides HDL Cholesterol Coronavirus (PCR) 02/26/21 02/26/21 02/26/21 11:15 18:02 21:50 WBC RBC Hgb Hct MCV MCH MCHC RDW Lymph % (Auto) [place] % (Auto) Lymph # (Auto) Seg Neutrophils % Seg Neuts % (Manual) Lymphocytes % (Manual) Seg Neutrophils # Seg Neutrophils # Man Lymphocytes # (Manual) PT INR APTT D-Dimer Heparin Anti-Xa Level Sodium Potassium Chloride Carbon Dioxide BUN Creatinine Glucose POC Glucose 224 H 296 H 259 H Magnesium Ferritin AST Lactate Dehydrogenase Troponin T C-Reactive Protein NT-Pro-B Natriuret Pep Albumin Triglycerides HDL Cholesterol Coronavirus (PCR) Chest x-ray: report reviewed, image reviewed
[2021-02-26] MEDS: guaiFENesin 100 MG/5 ML ORAL LIQD PO PRN (23:22)
[2021-02-26] MEDS: INSULIN GLARGINE 100 UNITS/ML SUB-Q SCH (23:23)
[2021-02-26] MEDS: HYDROcodone/ACETAMINOPHEN 5-325 MG TAB PO PRN (23:25)
--- NOTE | 2021-02-27 08:00 | Progress Note ---
Assessment and Plan Assessment and plan: 55-year-old female with PmHx of HTN, uterine fibroids and ex-smoker admitted for acute right MCA CVA and STEMI s/p PCI in RCA, now with acute respiratory distress requiring continuous Bipap. Acute right MCA CVA - 02/13/21- CT head shows microvascular angiopathy, decreased attenuation along the posterior right frontal subcortical region, no acute intracranial hemorrhage - 02/13/2021- CTA head shows decreased attenuation along the posterior right frontal lobe, no CT evidence of significant stenosis involving proximal cerebral branches particularly the proximal right MCA - 02/13/21- CTA neck shows mild atherosclerotic calcification involving the proximal internal carotid arteries bilaterally without significant stenosis - MRI brain and MRA brain and neck reveals several scattered foci are recent infarct in both the cerebellum and cerebral hemispheres. No hemorrhage or ad verse mass-effect. Findings likely indicate embolic phenomenon. - Not candidate for any intervention- out of the time window - PT/OT/ST eval - Neurology consulted, appreciate recommendations STEMI s/p PCI in RCA, h/o HTN Rt. Ventricle Thrombus - 02/13/2021 Echo: EF 55%, mild concentric left ventricular Hypertrophy,suspected thrombus in right ventricle - Heparin protocol initiated, ok to transition to warfarin or NOAC on d/c - On Statin, beta-silas, Plavix and aspirin - 02/16 X1 dose rectal ASA- due to NPO status - Strict I&O Acute hypoxic respiratory secondary to COVID COVID-19 Pneumonia Dysphagia - Speech eval completed, pass swallow - Pureed diet with thin liquid order Acute kidney injury - improving - Initial cr. 1.5. Sepsis 2/2 bilateral PNA, COVID PNA Anemia - On heparin gtt per protocol, ASA and plavix - Monitor for s/s of bleeding Hyperglycemia - Lantus increased to 10 units SUBQ Hospital Course to date: 02/16/21- Patient AAOX4, with slurred speech and Lt. sided weakness. MRI/MRA brain pending. Remains on continuous Bipap, failed optiflow trial overnight. Bilateral infiltrate noted on today CXR additional lasix was adminstered to optimize Respiratory status, However was D/C due to marginal BP concern for Hypoperfusion. Will reassess in the Am. Plan to wean off Bipap as tolerated. Patient has been NPO due to continuous Bipap. When patient is off bipap nurse to complete bedside swallow screen, if fail will place NGT so pateint can received PO meds. Low grade temp today, TMAX 101.2 in last 24hrs, Bcult pending, on IV abx, ceftriaxone and azithromycin. COVID swab result pending, ID on the case rec to start dexamethasone 6 mg IV/p.o. daily for 10 days. 02/17/21- COVID PCR can back possible, patient was already on Rocephin and azithromaci, added Remdesevir per protocol, and IV decadron was initiated. Patient was wean to heated high flow, currently on 70% FiO2 and 40L. Wean O2 supplement as tolerated for a SPO2b goal above 88%. Persistent hyperglycemia, lantus increased to 10 units. Speech eval completed, patient pass swallow, order placed for pureed diet with thin liquid. Will continue to monitor, Heparing gtt per protocol, Am labs ordered. 02/18/21-blood sugars this morning over 300. Ordered 10 units of IV insulin once. Added 5 units scheduled insulin in addition to sliding scale insulin. Diet change to diabetic diet. 02/19/21: Transfer to floor. NG tube d/c. 02/20/21: Will get speech therapy to re-evaluate patient to see if patient can be escalated from pureed diet. Cardiology recommendations noted, BB is increased. Continue supportive management for covid 19 pneumonia. HFNC currently at 35 l/min/fio2=60%. Ok with sats > 88%. Attempted to call Durga but voicemail was to another person in chart. Will attempt to find another number to update . 02/21/2021. Patient currently with 35 L of oxygen with an FiO2 of 70%. Continue statin therapy, beta blockers, and DAPT with plavix and aspirin per cardiology recommendation. Continue intravenous heparin, ultimately will be transitioned to long-term warfarin therapy or a NOAC. 02/22/2021. Patient's oxygen requirement has been decreased to 30 L/min via HFNC with FiO2 50%. Continue per ID and pulmonary recommendations. Patient received Actemra 02/17/2021. Complete remdesivir x5 days. Complete dexamethasone IV for 10 days. Cardiology also recommends continued statin therapy, beta-blockers and DAPT with Plavix and aspirin. Continue IV heparin and transition to long-term warfarin or NOAC per cardiology 02/23/2021. Chest x-ray from yesterday is unchanged. Patient currently on high flow nasal cannula 30 L/min with FiO2 35%. Continue per ID and pulmonary recommendations. Patient received Actemra 02/17/2021. Complete remdesivir x5 days. Complete dexamethasone IV for 10 days. Cardiology also recommends continued statin therapy, beta-blockers and DAPT with Plavix and aspirin. Continue IV heparin and transition to long-term warfarin or NOAC per cardiology 02/24/2021. Patient remains on high flow nasal cannula 30 L O2 with FiO2 35%. Patient will complete dexamethasone on 02/26/2021. Patient is s/p remdesivir and Actemra. Continue prone positioning as able. Continue statin therapy, beta- blockers and DAPT with Plavix and aspirin. Continue IV heparin and transition to long-term warfarin or NOAC per cardiology 02/25/2021. Patient on high flow nasal cannula with 15 L and FiO2 of 30%. C ontinue dexamethasone until tomorrow. Patient is s/p remdesivir and Actemra. Continue prone positioning as able. Continue statin therapy, beta-blockers and DAPT with Plavix and aspirin. Continue IV heparin and transition to long-term warfarin or NOAC per cardiology 02/26/2021. Patient on high flow nasal cannula with 15 L and FiO2 of 30%. Continue dexamethasone for total of 14 days per pulmonary recommendations. Patient is s/p remdesivir and Actemra. Continue prone positioning as able. Co ntinue statin therapy, beta-blockers and DAPT with Plavix and aspirin. Continue IV heparin and transition to long-term warfarin or NOAC per cardiology 02/27/2021. Patient on high flow nasal cannula with 15 L and FiO2 of 25%. Continue dexamethasone for total of 14 days per pulmonary recommendations. Resume dexamethasone 10 mg IV daily for 4 more days. Patient is s/p remdesivir and Actemra. Continue prone positioning as able. Continue statin therapy, beta-blockers and DAPT with Plavix and aspirin. Cardiology initiated anticoagulation with Eliquis. History Interval history: No new issues overnight Hospitalist Physical - Constitutional Vitals: Temp Pulse Resp BP Pulse Ox 98.6 F 78 20 114/80 92 02/27/21 06:43 02/27/21 06:43 02/27/21 06:43 02/27/21 06:43 02/27/21 06:43 General appearance: Present: mild distress, well-nourished - EENT Eyes: Present: PERRL, EOM intact ENT: hearing intact, clear oral mucosa, dentition normal - Neck Neck: Present: supple, normal ROM - Respiratory Respiratory effort: normal Respiratory: bilateral: CTA - Cardiovascular Rhythm: regular Heart Sounds: Present: S1 & S2. Absent: gallop, rub - Extremities Extremities: no ischemia, No edema, Full ROM - Abdominal General gastrointestinal: soft, non-tender, non-distended, normal bowel sounds - Integumentary Integumentary: Present: clear, warm, dry - Neurologic Neurologic: CNII-XII intact, moves all extremities HEART Score - HEART Score Troponin: Troponin T 0.992 ng/mL (0.00-0.029) H* 02/15/21 03:55 Results - Labs CBC & Chem 7: 02/26/21 07:48 02/25/21 05:58 Labs: Laboratory Last Values WBC 6.1 K/mm3 (4.5-11.0) 02/26/21 07:48 RBC 5.24 M/mm3 (3.65-5.03) H 02/26/21 07:48 Hgb 13.8 gm/dl (10.1-14.3) 02/26/21 07:48 Hct 40.9 % (30.3-42.9) 02/26/21 07:48 MCV 78 fl (79-97) L 02/26/21 07:48 MCH 26 pg (28-32) L 02/26/21 07:48 MCHC 34 % (30-34) 02/26/21 07:48 RDW 15.5 % (13.2-15.2) H 02/26/21 07:48 Plt Count 177 K/mm3 (140-440) 02/26/21 07:48 Lymph % (Auto) 17.9 % (13.4-35.0) 02/25/21 05:58 [place] % (Auto) 7.6 % (0.0-7.3) H 02/25/21 05:58 Eos % (Auto) 2.4 % (0.0-4.3) 02/25/21 05:58 Baso % (Auto) 0.8 % (0.0-1.8) 02/25/21 05:58 Lymph # (Auto) 1.5 K/mm3 (1.2-5.4) 02/25/21 05:58 [place] # (Auto) 0.7 K/mm3 (0.0-0.8) 02/25/21 05:58 Eos # (Auto) 0.2 K/mm3 (0.0-0.4) 02/25/21 05:58 Baso # (Auto) 0.1 K/mm3 (0.0-0.1) 02/25/21 05:58 Add Manual Diff Complete 02/20/21 06:39 Total Counted 100 02/20/21 06:39 Seg Neutrophils % 71.3 % (40.0-70.0) H 02/25/21 05:58 Seg Neuts % (Manual) 88.0 % (40.0-70.0) H 02/20/21 06:39 Lymphocytes % (Manual) 4.0 % (13.4-35.0) L 02/20/21 06:39 Reactive Lymphs % (Man) 2.0 % 02/20/21 06:39 Monocytes % (Manual) 3.0 % (0.0-7.3) 02/20/21 06:39 Eosinophils % (Manual) 1.0 % (0.0-4.3) 02/20/21 06:39 Myelocytes % 2.0 % 02/20/21 06:39 Nucleated RBC % Not Reportable 02/20/21 06:39 Seg Neutrophils # 6.1 K/mm3 (1.8-7.7) 02/25/21 05:58 Seg Neutrophils # Man 5.5 K/mm3 (1.8-7.7) 02/20/21 06:39 Band Neutrophils # 0.0 K/mm3 02/20/21 06:39 Lymphocytes # (Manual) 0.2 K/mm3 (1.2-5.4) L 02/20/21 06:39 Abs React Lymphs (Man) 0.1 K/mm3 02/20/21 06:39 Monocytes # (Manual) 0.2 K/mm3 (0.0-0.8) 02/20/21 06:39 Eosinophils # (Manual) 0.1 K/mm3 (0.0-0.4) 02/20/21 06:39 Basophils # (Manual) 0.0 K/mm3 (0.0-0.1) 02/20/21 06:39 Metamyelocytes # 0.0 K/mm3 02/20/21 06:39 Myelocytes # 0.1 K/mm3 02/20/21 06:39 Promyelocytes # 0.0 K/mm3 02/20/21 06:39 Blast Cells # 0.0 K/mm3 02/20/21 06:39 WBC Morphology Not Reportable 02/20/21 06:39 Hypersegmented Neuts Not Reportable 02/20/21 06:39 Hyposegmented Neuts Not Reportable 02/20/21 06:39 Hypogranular Neuts Not Reportable 02/20/21 06:39 Smudge Cells Not Reportable 02/20/21 06:39 Toxic Granulation Not Reportable 02/20/21 06:39 Toxic Vacuolation Not Reportable 02/20/21 06:39 Dohle Bodies Not Reportable 02/20/21 06:39 Pelger-Huet Anomaly Not Reportable 02/20/21 06:39 Aba Rods Not Reportable 02/20/21 06:39 Platelet Estimate Consistent w auto 02/20/21 06:39 Clumped Platelets Not Reportable 02/20/21 06:39 Plt Clumps, EDTA Not Reportable 02/20/21 06:39 Large Platelets Not Reportable 02/20/21 06:39 Giant Platelets Not Reportable 02/20/21 06:39 Platelet Satelliting Not Reportable 02/20/21 06:39 Plt Morphology Comment Not Reportable 02/20/21 06:39 RBC Morphology Normal 02/20/21 06:39 Dimorphic RBCs Not Reportable 02/20/21 06:39 Polychromasia Not Reportable 02/20/21 06:39 Hypochromasia Not Reportable 02/20/21 06:39 Poikilocytosis Not Reportable 02/20/21 06:39 Anisocytosis Not Reportable 02/20/21 06:39 Microcytosis Not Reportable 02/20/21 06:39 Macrocytosis Not Reportable 02/20/21 06:39 Spherocytes Not Reportable 02/20/21 06:39 Pappenheimer Bodies Not Reportable 02/20/21 06:39 Sickle Cells Not Reportable 02/20/21 06:39 Target Cells Not Reportable 02/20/21 06:39 Tear Drop Cells Not Reportable 02/20/21 06:39 Ovalocytes Not Reportable 02/20/21 06:39 Helmet Cells Not Reportable 02/20/21 06:39 Bang-Puhi Bodies Not Reportable 02/20/21 06:39 Sarah Rings Not Reportable 02/20/21 06:39 Santana Cells Not Reportable 02/20/21 06:39 Bite Cells Not Reportable 02/20/21 06:39 Crenated Cell Not Reportable 02/20/21 06:39 Elliptocytes Not Reportable 02/20/21 06:39 Acanthocytes (Spur) Not Reportable 02/20/21 06:39 Rouleaux Not Reportable 02/20/21 06:39 Hemoglobin C Crystals Not Reportable 02/20/21 06:39 Schistocytes Not Reportable 02/20/21 06:39 Malaria parasites Not Reportable 02/20/21 06:39 Alberto Bodies Not Reportable 02/20/21 06:39 Hem Pathologist Commnt No 02/20/21 06:39 PT 14.1 Sec. (12.2-14.9) 02/22/21 15:12 INR 1.03 (0.87-1.13) 02/22/21 15:12 APTT 50.0 Sec. (24.2-36.6) H 02/22/21 15:12 Thrombin Time 17.2 Sec. (15.1-19.6) 02/14/21 20:21 D-Dimer 4275.78 ng/mlDDU (0-234) H 02/20/21 06:39 Heparin Anti-Xa Level 0.32 U.I./ml (0.3-0.7) 02/22/21 06:50 Sodium 143 mmol/L (137-145) 02/25/21 05:58 Potassium 4.2 mmol/L (3.6-5.0) 02/25/21 05:58 Chloride 101.7 mmol/L (98-107) 02/25/21 05:58 Carbon Dioxide 24 mmol/L (22-30) D 02/25/21 05:58 Anion Gap 22 mmol/L 02/25/21 05:58 BUN 18 mg/dL (7-17) H 02/25/21 05:58 Creatinine 0.8 mg/dL (0.6-1.2) 02/25/21 05:58 Estimated GFR > 60 ml/min 02/25/21 05:58 BUN/Creatinine Ratio 23 % 02/25/21 05:58 Glucose 88 mg/dL (65-100) 02/25/21 05:58 POC Glucose 259 mg/dL (70-105) H 02/26/21 21:50 Calcium 10.0 mg/dL (8.4-10.2) 02/25/21 05:58 Phosphorus 3.30 mg/dL (2.5-4.5) 02/22/21 06:50 Magnesium 1.80 mg/dL (1.7-2.3) 02/22/21 06:50 Ferritin 915.5 ng/mL (10.0-200.0) H 02/20/21 06:39 Total Bilirubin 0.30 mg/dL (0.1-1.2) 02/20/21 06:39 AST 36 units/L (5-40) 02/20/21 06:39 ALT 27 units/L (7-56) 02/20/21 06:39 Alkaline Phosphatase 74 units/L (35-129) 02/20/21 06:39 Lactate Dehydrogenase 645 units/L (91-180) H 02/20/21 06:39 Troponin T 0.992 ng/mL (0.00-0.029) H* 02/15/21 03:55 C-Reactive Protein 3.60 mg/dL (0.00-1.30) H 02/20/21 06:39 NT-Pro-B Natriuret Pep 4086 pg/mL (0-900) H 02/15/21 08:38 Total Protein 7.0 g/dL (6.3-8.2) 02/20/21 06:39 Albumin 3.1 g/dL (3.9-5) L 02/20/21 06:39 Albumin/Globulin Ratio 0.8 % 02/20/21 06:39 Triglycerides 292 mg/dL (2-149) H 02/14/21 20:21 Cholesterol 199 mg/dL (50-199) 02/14/21 20:21 LDL Cholesterol Direct 105 mg/dL (50-130) 02/14/21 20:21 HDL Cholesterol 23 mg/dL (40-59) L 02/14/21 20:21 Cholesterol/HDL Ratio 8.65 % 02/14/21 20:21 Procalcitonin 0.59 ng/mL (<0.15) 02/15/21 18:20 Coronavirus (PCR) Positive (Negative) A 02/16/21 Unknown Blood Type A POSITIVE 02/14/21 20:21 Antibody Screen Negative 02/14/21 20:21 Taylor/IV: Voiding Method External Female Catheter Active Medications - Current Medications Current Medications: Generic Name Dose Route Start Last Admin Trade Name Freq PRN Reason Stop Dose Admin Acetaminophen 650 mg 02/16/21 01:00 02/16/21 02:09 Acetaminophen 650 Mg Rect Supp [place] 650 mg Q6H PRN Administration Pain, Mild (1-3) Hydrocodone Bitart/Acetaminophen 1 each 02/14/21 21:57 02/26/21 23:25 Hydrocodone/Acetaminophen 5-325 Mg Tab PO 1 each Q6H PRN Administration Pain, Moderate (4-6) Albuterol 2.5 mg 02/14/21 21:54 Albuterol 2.5 Mg/3 Ml Nebu IH Q4HRT PRN Shortness Of Breath Lipase/Protease/Amylase 1 each 02/17/21 12:34 Lipase 10,500/Protease 25,000/Amylase 43,750 (Units) Dr Betts FEEDTUBE PRN PRN For Clogged Feeding Tube Apixaban 2.5 mg 02/22/21 22:00 02/26/21 23:23 Apixaban 2.5 Mg Tab PO 2.5 mg Q12HR KARYN Administration Protocol Aspirin 81 mg 02/16/21 12:00 02/26/21 11:24 Aspirin 81 Mg Tab Chew PO 81 mg QDAY KARYN Administration Atorvastatin Calcium 80 mg 02/15/21 22:00 02/26/21 23:22 Atorvastatin 40 Mg Tab PO 80 mg QHS KARYN Administration Clopidogrel Bisulfate 75 mg 02/15/21 10:00 02/26/21 11:24 Clopidogrel 75 Mg Tab PO 75 mg QDAY KARYN Administration Dextrose 0 ml 02/14/21 21:54 Dextrose 50% In Water (25gm) 50 Ml Syringe IV Q30MIN PRN Hypoglycemia Protocol Docusate Sodium 100 mg 02/14/21 22:04 02/22/21 09:15 Docusate Sodium 100 Mg Cap PO 100 mg DAILY PRN Administration Constip unreliev by MOM/or NPO Famotidine 20 mg 02/21/21 10:00 02/26/21 23:28 Famotidine 20 Mg Tab PO 20 mg BID KARYN Administration Ferrous Sulfate 300 mg 02/21/21 22:00 02/26/21 23:22 Ferrous Sulfate 300 Mg (60mg Elemental Iron) / 5 Ml Oral Liqd FEEDTUBE 300 mg BID KARYN Administration Guaifenesin 200 mg 02/26/21 22:54 02/26/21 23:22 Guaifenesin 100 Mg/5 Ml Oral Liqd PO 200 mg Q4H PRN Administration Cough Hydromorphone HCl 0.5 mg 02/14/21 21:54 02/18/21 22:00 Hydromorphone 1 Mg/1 Ml Inj IV 0.5 mg Q3H PRN Administration Pain , Severe (7-10) Hydrophilic Ointment 1 applic 02/20/21 09:00 Lip Therapy Vaseline TP DIRECT PRN Dry Lips Insulin Glargine 10 units 02/17/21 22:00 02/26/21 23:23 Insulin Glargine 100 Units/Ml SUB-Q 10 units QHS [facility] Administration Insulin Human Lispro 0 unit 02/17/21 22:00 02/26/21 23:21 Insulin Lispro 100 Unit/Ml SUB-Q 6 unit [facility] Administration Protocol Insulin Human Regular 7 units 02/22/21 16:30 02/26/21 23:23 Insulin Regular, Human 100 Units/1 Ml SUB-Q 7 units [facility] Administration Melatonin 5 mg 02/16/21 17:53 02/26/21 03:47 Melatonin 5 Mg Tab PO 5 mg QHS PRN Administration Sleep Metoprolol Tartrate 50 mg 02/19/21 22:00 02/26/21 23:25 Metoprolol Tartrate 50 Mg Tab PO 50 mg BID [facility] Administration Morphine Sulfate 2 mg 02/14/21 21:54 02/26/21 03:48 Morphine 2 Mg/1 Ml Inj IV 2 mg Q4H PRN Administration Pain, Moderate (4-6) Ondansetron HCl 4 mg 02/14/21 21:54 02/17/21 21:38 Ondansetron 4 Mg/2 Ml Inj IV 4 mg Q8H PRN Administration Nausea And Vomiting Simple Syrup 15 ml 02/17/21 12:34 Simple Syrup 15 Ml FEEDTUBE PRN PRN Hypoglycemia Simple Syrup 30 ml 02/17/21 12:34 Simple Syrup 15 Ml FEEDTUBE PRN PRN Hypoglycemia Sodium Bicarbonate 325 mg 02/17/21 12:34 Sodium Bicarbonate 325 Mg Tab FEEDTUBE PRN PRN For Clogged Feeding Tube Sodium Chloride 10 ml 02/14/21 22:00 02/26/21 23:24 Sodium Chloride 0.9% 10 Ml Flush Syringe IV 10 ml BID KARYN Administration Sodium Chloride 10 ml 02/14/21 21:54 Sodium Chloride 0.9% 10 Ml Flush Syringe IV PRN PRN LINE FLUSH Nutrition/Malnutrition Assess - Dietary Evaluation Nutrition/Malnutrition Findings: Nutrition Notes Start: 02/15/21 12:03 Freq: Status: Active Protocol: Document 02/20/21 16:12 GB (Rec: 02/20/21 16:21 GB [email or web address]) Nutrition Notes Initial or Follow up Reassessment Current Diagnosis Diabetes,Hypertension, Respiratory Failure,Stroke Other Pertinent Diagnosis hyperglycemia, STEMI Current Diet Mechanical soft, thni liquids Labs/Tests 02/20: Na 151, BUN 23, glucose 140, ferritin 915.3 Pertinent Medications ferrous sulfate, NaCl/Hep, NaCl, remdesivir Height 5 ft 4 in Weight 104.3 kg [place] Body Weight (kg) 54.54 BMI 39.4 Weight change and time frame no significant changes at this time Weight Status Obese Subjective/Other Information per MD ntoes 02/20: NG d/c 02/19 . INSURANCE RISK MANAGER eval advanced diet texture to mechanical soft thin liquids. PO recorded 25% x 1 meal. Adding glucerna BID for additional calories/ protein while po intake recovers. Percent of energy/protein needs met: PO intake of meals and supplement 50% or greater will meet 75% or greater of estimated energy needs. Burn Absent Trauma Absent GI Symptoms None Difficulty In Swallowing Food Allergy No Current % PO Poor (25-49%) Minimum of two criteria No #2 Nutrition Diagnosis Inadequate energy intake Etiology DM, collapse As Evidenced by Signs and Symptoms Recent advancement to PO intake with mechanically altered texture diet, NG d/c , need for nutritional supplement beverage to meet estimated energy needs. #1 Nutrition Diagnosis Other: (Specify in comment below) Comments: Comprimised PO intake, dependency for enteral feed to meet nutrition needs Etiology DM, collapse, As Evidenced by Signs and Symptoms not able to eat PO at this time, MD order for TF Diagnosis Progress(for reassessment Resolved documentation) Is patient on ventilator? No Is Patient Ambulatory and/or Out of Bed Yes REE-(Tad-St. Jeor-ambulatory/OOB) [ 2943.400 [id number]] Kcal/Kg value to use for calculation 17 Approximate Energy Requirements Using 1773 kcal/Kg Calculation Used for Recommendations Kcal/kg Additional Notes Protein: 0.7-1 g/kg @ 104k-104g Fluids: 1 ml/kcal or per MD Nutrition Intervention Change Diet Order: Continue with current diet advancing texture per INSURANCE RISK MANAGER Nutrition Support: n/a Add Supplement/Snack (indicate name/kcal glucerna BID /protein ) Provides kCal: 440 Provides Protein (gm) 20 Goal #1 PO intake of meals to improve to 50% or greater during LOS Goal #2 weight to maintain within -3% current weight for LOS Goal #3 PO intake of nutritional supplement beverage to be 50% or greater BID daily during LOS Follow-Up By: 02/27/21 Additional Comments Follow PO intake of meals/ supplements
[2021-02-27] MEDS: INSULIN LISPRO 100 UNIT/ML SUB-Q SCH ×4 (08:27→23:08)
[2021-02-27] MEDS: INSULIN REGULAR, HUMAN 100 UNITS/1 ML SUB-Q SCH ×4 (08:33→23:10)
[2021-02-27] MEDS: ASPIRIN 81 MG TAB CHEW PO SCH (11:05)
--- NOTE | 2021-02-27 11:28 | Progress Note ---
Assessment and Plan 55 y/o female with STEMI and acute respiratory failure 02/28/21: Suggest some more lasix therapy. Steroids end on . Guarded Prognosis 02/24/21: Lasix today. Will ask RT about maybe trying a salter. K not checked today but will defer to primary on follow up. Continue steroids. Guarded prognosis. 02/23/21: Supportive care. Guarded prognosis. 02/22/21: CXR is unchanged. EF is 55%. Will speak with RT about the acute c hange from 50-100%. Hold on lasix today given K of 3.5 but would benefit from again. Guarded prognosis. 02/21/21: Will order CXR for today for review. Follow up echo results. hold on lasix until those results are back. Wean FiO2 for sats >88%. Will speak with RT about more detailed documentation to explain significant increases in oxygen requirement. 02/20/21: Wean for sats >88%. Steroids and Remdesivir. Will hold on lasix today although it did not make sodium worse so could consider repeat dosing. Guarded prognosis. 02/19/21: continue to wean for sats >88%. Steroids and remdesivir. Feel patient is stable enough to go to COVID floor or at least Step down. Needs more free water. Patient is taking po so can be given this way. Did give lasix x1 today to help with volume given I/O record. May make Na worse. 02/18/21: WEan FiO2 and flow for sats >88%. Continue therapy for COVID. Guideline therapy for CAD. Guarded prognosis. 02/17/21: Suspect family knew patient was COVID positive and did not tell us. 48 hours now behind on starting therapy, maybe longer. Agree with steroids. Will ask ID about Remdesivir and Actemra. Monitor fluids, BNP was still elevated despite normal EF. Wean FiO2 as tolerated and need to have patient manually prone. Follow up neurology recs as well as ID. Guarded prognosis. 02/16/21: Responded well to diuresis, will give more lasix today. Going for MRI today. Spoke with downstairs who is upset about lack of visitation. he also states that he has a neurologist who is willing to accept the patient to [facility], [place] but he refused to give me the name of the physician. Will continue supportive measures. 1. Pulm- CXR appears to be more consistent with pulmonary edema and BNP is 4k. Stopped IVF's. Attempted to take of bipap but desats on cannula. Awake and tachypnic. Will give lasix 20mg IV x1 now to see if this helps with oxygen requirement. DO not feel this is infection. 2. Cards-STemi, goal directed therapy and follow up echo, done but not read yet. 3. Endo-elevated blood sugar likely related to acute mI, although patient could have underlying disease given age and weight, suggest checking A1C. 4. Guarded prognosis Subjective Date of service: 02/27/21 Principal diagnosis: Covid-19 Interval history: No acute events. Still on high flow oxygen Objective Vital Signs - 12hr 02/27/21 02/27/21 02/27/21 00:00 03:31 06:43 Temperature 98.6 F Pulse Rate 79 78 Respiratory 20 Rate Blood Pressure 114/80 O2 Sat by Pulse 91 92 Oximetry 02/27/21 10:39 Temperature Pulse Rate Respiratory Rate Blood Pressure O2 Sat by Pulse 92 Oximetry Gastrointestinal: normoactive bowel sounds Integumentary: normal CBC and BMP: 02/28/21 06:13 02/28/21 06:13 ABG, PT/INR, D-dimer: PT/INR, D-dimer PT 14.1 Sec. (12.2-14.9) 02/22/21 15:12 INR 1.03 (0.87-1.13) 02/22/21 15:12 D-Dimer 4275.78 ng/mlDDU (0-234) H 02/20/21 06:39 Abnormal lab findings: Abnormal Labs 02/14/21 02/14/21 02/14/21 20:21 20:21 20:21 WBC 15.6 H RBC 5.55 H Hgb Hct 43.3 H MCV 78 L MCH 26 L MCHC RDW 16.3 H Lymph % (Auto) Smith % (Auto) Lymph # (Auto) Seg Neutrophils % Seg Neuts % (Manual) 96.0 H Lymphocytes % (Manual) 3.0 L Seg Neutrophils # Seg Neutrophils # Man 15.0 H Lymphocytes # (Manual) 0.5 L PT 16.7 H INR 1.30 H APTT D-Dimer Heparin Anti-Xa Level Sodium 131 L Potassium 5.1 H Chloride 88.4 L Carbon Dioxide 20 L BUN 34 H Creatinine 1.5 H Glucose 574 H* POC Glucose Magnesium Ferritin AST Lactate Dehydrogenase Troponin T 0.882 H* C-Reactive Protein NT-Pro-B Natriuret Pep Albumin Triglycerides 292 H HDL Cholesterol 23 L Coronavirus (PCR) 02/14/21 02/14/21 02/14/21 20:21 23:11 23:20 WBC RBC Hgb Hct MCV MCH MCHC RDW Lymph % (Auto) Smith % (Auto) Lymph # (Auto) Seg Neutrophils % Seg Neuts % (Manual) Lymphocytes % (Manual) Seg Neutrophils # Seg Neutrophils # Man Lymphocytes # (Manual) PT INR APTT D-Dimer Heparin Anti-Xa Level Sodium Potassium Chloride Carbon Dioxide BUN Creatinine Glucose POC Glucose 562 H 422 H Magnesium Ferritin AST Lactate Dehydrogenase Troponin T 0.892 H* C-Reactive Protein NT-Pro-B Natriuret Pep Albumin Triglycerides HDL Cholesterol Coronavirus (PCR) 02/15/21 02/15/21 02/15/21 03:55 03:55 05:29 WBC RBC 5.17 H Hgb Hct MCV 77 L MCH 26 L MCHC RDW 15.8 H Lymph % (Auto) 4.9 L Smith % (Auto) Lymph # (Auto) 0.5 L Seg Neutrophils % 89.2 H Seg Neuts % (Manual) Lymphocytes % (Manual) Seg Neutrophils # 8.4 H Seg Neutrophils # Man Lymphocytes # (Manual) PT INR APTT D-Dimer Heparin Anti-Xa Level Sodium 136 L Potassium Chloride 97.3 L Carbon Dioxide 18 L BUN 33 H Creatinine Glucose 402 H POC Glucose 345 H Magnesium Ferritin AST 46 H Lactate Dehydrogenase Troponin T 0.992 H* C-Reactive Protein NT-Pro-B Natriuret Pep Albumin 3.0 L Triglycerides HDL Cholesterol Coronavirus (PCR) 02/15/21 02/15/21 02/15/21 08:38 08:38 08:38 WBC RBC Hgb Hct MCV 75 L MCH 26 L MCHC 35 H RDW 16.2 H Lymph % (Auto) Smith % (Auto) Lymph # (Auto) Seg Neutrophils % Seg Neuts % (Manual) Lymphocytes % (Manual) Seg Neutrophils # Seg Neutrophils # Man Lymphocytes # (Manual) PT INR APTT D-Dimer Heparin Anti-Xa Level Sodium 135 L Potassium Chloride Carbon Dioxide 19 L BUN 31 H Creatinine Glucose 360 H POC Glucose Magnesium 2.50 H Ferritin AST Lactate Dehydrogenase Troponin T C-Reactive Protein NT-Pro-B Natriuret Pep 4086 H Albumin Triglycerides HDL Cholesterol Coronavirus (PCR) 02/15/21 02/15/21 02/15/21 11:15 17:28 18:20 WBC RBC Hgb Hct MCV MCH MCHC RDW Lymph % (Auto) Smith % (Auto) Lymph # (Auto) Seg Neutrophils % Seg Neuts % (Manual) Lymphocytes % (Manual) Seg Neutrophils # Seg Neutrophils # Man Lymphocytes # (Manual) PT INR APTT D-Dimer > 14089 H Heparin Anti-Xa Level Sodium Potassium Chloride Carbon Dioxide BUN Creatinine Glucose POC Glucose 317 H 311 H Magnesium Ferritin AST Lactate Dehydrogenase Troponin T C-Reactive Protein NT-Pro-B Natriuret Pep Albumin Triglycerides HDL Cholesterol Coronavirus (PCR) 02/15/21 02/15/21 02/15/21 18:20 18:20 18:20 WBC RBC Hgb Hct MCV MCH MCHC RDW Lymph % (Auto) Smith % (Auto) Lymph # (Auto) Seg Neutrophils % Seg Neuts % (Manual) Lymphocytes % (Manual) Seg Neutrophils # Seg Neutrophils # Man Lymphocytes # (Manual) PT 15.8 H INR 1.20 H APTT D-Dimer Heparin Anti-Xa Level Sodium Potassium Chloride Carbon Dioxide BUN Creatinine Glucose POC Glucose Magnesium Ferritin 837.7 H AST Lactate Dehydrogenase 766 H Troponin T C-Reactive Protein 21.50 H NT-Pro-B Natriuret Pep Albumin Triglycerides HDL Cholesterol Coronavirus (PCR) 02/15/21 02/16/21 02/16/21 23:45 02:44 02:44 WBC RBC Hgb Hct MCV 77 L MCH 26 L MCHC RDW 16.0 H Lymph % (Auto) Smith % (Auto) Lymph # (Auto) Seg Neutrophils % Seg Neuts % (Manual) Lymphocytes % (Manual) Seg Neutrophils # Seg Neutrophils # Man Lymphocytes # (Manual) PT INR APTT D-Dimer Heparin Anti-Xa Level Sodium Potassium Chloride Carbon Dioxide BUN 27 H Creatinine Glucose 269 H POC Glucose 203 H Magnesium Ferritin AST Lactate Dehydrogenase Troponin T C-Reactive Protein NT-Pro-B Natriuret Pep Albumin Triglycerides HDL Cholesterol Coronavirus (PCR) 02/16/21 02/16/21 02/16/21 05:47 11:50 15:00 WBC RBC Hgb Hct MCV MCH MCHC RDW Lymph % (Auto) Smith % (Auto) Lymph # (Auto) Seg Neutrophils % Seg Neuts % (Manual) Lymphocytes % (Manual) Seg Neutrophils # Seg Neutrophils # Man Lymphocytes # (Manual) PT INR APTT D-Dimer Heparin Anti-Xa Level < 0.10 L Sodium Potassium Chloride Carbon Dioxide BUN Creatinine Glucose POC Glucose 275 H 251 H Magnesium Ferritin AST Lactate Dehydrogenase Troponin T C-Reactive Protein NT-Pro-B Natriuret Pep Albumin Triglycerides HDL Cholesterol Coronavirus (PCR) 02/16/21 02/16/21 02/16/21 18:23 23:30 23:57 WBC RBC Hgb Hct MCV MCH MCHC RDW Lymph % (Auto) Smith % (Auto) Lymph # (Auto) Seg Neutrophils % Seg Neuts % (Manual) Lymphocytes % (Manual) Seg Neutrophils # Seg Neutrophils # Man Lymphocytes # (Manual) PT INR APTT D-Dimer Heparin Anti-Xa Level < 0.10 L Sodium Potassium Chloride Carbon Dioxide BUN Creatinine Glucose POC Glucose 237 H 249 H Magnesium Ferritin AST Lactate Dehydrogenase Troponin T C-Reactive Protein NT-Pro-B Natriuret Pep Albumin Triglycerides HDL Cholesterol Coronavirus (PCR) 02/16/21 02/17/21 02/17/21 Unknown 05:25 06:18 WBC RBC Hgb Hct MCV MCH MCHC RDW Lymph % (Auto) Smith % (Auto) Lymph # (Auto) Seg Neutrophils % Seg Neuts % (Manual) Lymphocytes % (Manual) Seg Neutrophils # Seg Neutrophils # Man Lymphocytes # (Manual) PT INR APTT D-Dimer Heparin Anti-Xa Level Sodium Potassium Chloride Carbon Dioxide BUN Creatinine Glucose POC Glucose 238 H 229 H Magnesium Ferritin AST Lactate Dehydrogenase Troponin T C-Reactive Protein NT-Pro-B Natriuret Pep Albumin Triglycerides HDL Cholesterol Coronavirus (PCR) Positive A 02/17/21 02/17/21 02/17/21 11:35 13:30 13:30 WBC RBC Hgb Hct MCV MCH MCHC RDW Lymph % (Auto) Smith % (Auto) Lymph # (Auto) Seg Neutrophils % Seg Neuts % (Manual) Lymphocytes % (Manual) Seg Neutrophils # Seg Neutrophils # Man Lymphocytes # (Manual) PT INR APTT D-Dimer Heparin Anti-Xa Level 0.29 L Sodium 146 H D Potassium Chloride 107.3 H Carbon Dioxide BUN 29 H Creatinine Glucose 334 H POC Glucose 279 H Magnesium Ferritin AST Lactate Dehydrogenase Troponin T C-Reactive Protein NT-Pro-B Natriuret Pep Albumin Triglycerides HDL Cholesterol Coronavirus (PCR) 02/17/21 02/17/21 02/17/21 13:30 13:30 16:42 WBC RBC Hgb Hct MCV 77 L MCH 25 L MCHC RDW 16.1 H Lymph % (Auto) Smith % (Auto) Lymph # (Auto) Seg Neutrophils % Seg Neuts % (Manual) Lymphocytes % (Manual) Seg Neutrophils # Seg Neutrophils # Man Lymphocytes # (Manual) PT INR APTT D-Dimer Heparin Anti-Xa Level Sodium 146 H Potassium Chloride Carbon Dioxide BUN 29 H Creatinine Glucose 340 H POC Glucose 291 H Magnesium Ferritin AST Lactate Dehydrogenase Troponin T C-Reactive Protein NT-Pro-B Natriuret Pep Albumin 2.7 L Triglycerides HDL Cholesterol Coronavirus (PCR) 02/17/21 02/18/21 02/18/21 21:43 04:40 04:40 WBC RBC Hgb Hct MCV 78 L MCH 26 L MCHC RDW 16.3 H Lymph % (Auto) Smith % (Auto) Lymph # (Auto) Seg Neutrophils % Seg Neuts % (Manual) Lymphocytes % (Manual) Seg Neutrophils # Seg Neutrophils # Man Lymphocytes # (Manual) PT INR APTT D-Dimer Heparin Anti-Xa Level Sodium 149 H Potassium Chloride 108.9 H Carbon Dioxide BUN 34 H Creatinine Glucose 318 H POC Glucose 288 H Magnesium Ferritin AST Lactate Dehydrogenase Troponin T C-Reactive Protein 14.50 H NT-Pro-B Natriuret Pep Albumin 3.0 L Triglycerides HDL Cholesterol Coronavirus (PCR) 02/18/21 02/18/21 02/18/21 04:40 08:02 11:30 WBC RBC Hgb Hct MCV MCH MCHC RDW Lymph % (Auto) Smith % (Auto) Lymph # (Auto) Seg Neutrophils % Seg Neuts % (Manual) Lymphocytes % (Manual) Seg Neutrophils # Seg Neutrophils # Man Lymphocytes # (Manual) PT INR APTT D-Dimer 3846.94 H Heparin Anti-Xa Level Sodium Potassium Chloride Carbon Dioxide BUN Creatinine Glucose POC Glucose 263 H 309 H Magnesium Ferritin AST Lactate Dehydrogenase Troponin T C-Reactive Protein NT-Pro-B Natriuret Pep Albumin Triglycerides HDL Cholesterol Coronavirus (PCR) 02/18/21 02/18/21 02/18/21 12:29 21:56 22:34 WBC RBC Hgb Hct MCV MCH MCHC RDW Lymph % (Auto) Smith % (Auto) Lymph # (Auto) Seg Neutrophils % Seg Neuts % (Manual) Lymphocytes % (Manual) Seg Neutrophils # Seg Neutrophils # Man Lymphocytes # (Manual) PT INR APTT D-Dimer Heparin Anti-Xa Level 0.29 L Sodium Potassium Chloride Carbon Dioxide BUN Creatinine Glucose POC Glucose 313 H 284 H Magnesium Ferritin AST Lactate Dehydrogenase Troponin T C-Reactive Protein NT-Pro-B Natriuret Pep Albumin Triglycerides HDL Cholesterol Coronavirus (PCR) 02/18/21 02/19/21 02/19/21 23:52 06:11 07:54 WBC RBC Hgb Hct MCV MCH MCHC RDW Lymph % (Auto) Smith % (Auto) Lymph # (Auto) Seg Neutrophils % Seg Neuts % (Manual) Lymphocytes % (Manual) Seg Neutrophils # Seg Neutrophils # Man Lymphocytes # (Manual) PT INR APTT D-Dimer Heparin Anti-Xa Level Sodium 151 H Potassium Chloride 110.6 H Carbon Dioxide BUN 28 H Creatinine Glucose 191 H POC Glucose 272 H 155 H Magnesium Ferritin AST Lactate Dehydrogenase Troponin T C-Reactive Protein NT-Pro-B Natriuret Pep Albumin 3.0 L Triglycerides HDL Cholesterol Coronavirus (PCR) 02/19/21 02/19/21 02/19/21 12:37 16:29 21:28 WBC RBC Hgb Hct MCV MCH MCHC RDW Lymph % (Auto) Smith % (Auto) Lymph # (Auto) Seg Neutrophils % Seg Neuts % (Manual) Lymphocytes % (Manual) Seg Neutrophils # Seg Neutrophils # Man Lymphocytes # (Manual) PT INR APTT D-Dimer Heparin Anti-Xa Level Sodium Potassium Chloride Carbon Dioxide BUN Creatinine Glucose POC Glucose 233 H 268 H 298 H Magnesium Ferritin AST Lactate Dehydrogenase Troponin T C-Reactive Protein NT-Pro-B Natriuret Pep Albumin Triglycerides HDL Cholesterol Coronavirus (PCR) 02/19/21 02/20/21 02/20/21 23:34 06:39 06:39 WBC RBC 5.08 H Hgb Hct MCV 77 L MCH 25 L MCHC RDW 16.0 H Lymph % (Auto) Smith % (Auto) Lymph # (Auto) Seg Neutrophils % Seg Neuts % (Manual) 88.0 H Lymphocytes % (Manual) 4.0 L Seg Neutrophils # Seg Neutrophils # Man Lymphocytes # (Manual) 0.2 L PT INR APTT D-Dimer 4275.78 H Heparin Anti-Xa Level 0.26 L Sodium Potassium Chloride Carbon Dioxide BUN Creatinine Glucose POC Glucose Magnesium Ferritin AST Lactate Dehydrogenase Troponin T C-Reactive Protein NT-Pro-B Natriuret Pep Albumin Triglycerides HDL Cholesterol Coronavirus (PCR) 02/20/21 02/20/21 02/20/21 06:39 06:39 08:45 WBC RBC Hgb Hct MCV MCH MCHC RDW Lymph % (Auto) Smith % (Auto) Lymph # (Auto) Seg Neutrophils % Seg Neuts % (Manual) Lymphocytes % (Manual) Seg Neutrophils # Seg Neutrophils # Man Lymphocytes # (Manual) PT INR APTT D-Dimer Heparin Anti-Xa Level Sodium 152 H 151 H Potassium Chloride 112.0 H 111.4 H Carbon Dioxide 31 H BUN 23 H 23 H Creatinine Glucose 119 H 140 H POC Glucose Magnesium Ferritin 915.5 H AST Lactate Dehydrogenase 645 H Troponin T C-Reactive Protein 3.60 H NT-Pro-B Natriuret Pep Albumin 3.1 L Triglycerides HDL Cholesterol Coronavirus (PCR) 02/20/21 02/20/21 02/20/21 11:57 18:01 22:20 WBC RBC Hgb Hct MCV MCH MCHC RDW Lymph % (Auto) Smith % (Auto) Lymph # (Auto) Seg Neutrophils % Seg Neuts % (Manual) Lymphocytes % (Manual) Seg Neutrophils # Seg Neutrophils # Man Lymphocytes # (Manual) PT INR APTT D-Dimer Heparin Anti-Xa Level Sodium Potassium Chloride Carbon Dioxide BUN Creatinine Glucose POC Glucose 217 H 337 H 379 H Magnesium Ferritin AST Lactate Dehydrogenase Troponin T C-Reactive Protein NT-Pro-B Natriuret Pep Albumin Triglycerides HDL Cholesterol Coronavirus (PCR) 02/21/21 02/21/21 02/21/21 07:43 11:42 16:30 WBC RBC Hgb Hct MCV MCH MCHC RDW Lymph % (Auto) Smith % (Auto) Lymph # (Auto) Seg Neutrophils % Seg Neuts % (Manual) Lymphocytes % (Manual) Seg Neutrophils # Seg Neutrophils # Man Lymphocytes # (Manual) PT INR APTT D-Dimer Heparin Anti-Xa Level Sodium Potassium Chloride Carbon Dioxide BUN Creatinine Glucose POC Glucose 152 H 206 H 235 H Magnesium Ferritin AST Lactate Dehydrogenase Troponin T C-Reactive Protein NT-Pro-B Natriuret Pep Albumin Triglycerides HDL Cholesterol Coronavirus (PCR) 02/21/21 02/22/21 02/22/21 21:56 05:51 06:50 WBC RBC Hgb Hct MCV MCH MCHC RDW Lymph % (Auto) Smith % (Auto) Lymph # (Auto) Seg Neutrophils % Seg Neuts % (Manual) Lymphocytes % (Manual) Seg Neutrophils # Seg Neutrophils # Man Lymphocytes # (Manual) PT INR APTT D-Dimer Heparin Anti-Xa Level Sodium Potassium 3.5 L Chloride Carbon Dioxide 31 H BUN 19 H Creatinine Glucose 118 H POC Glucose 205 H 121 H Magnesium Ferritin AST Lactate Dehydrogenase Troponin T C-Reactive Protein NT-Pro-B Natriuret Pep Albumin Triglycerides HDL Cholesterol Coronavirus (PCR) 02/22/21 02/22/21 02/22/21 07:55 11:47 15:12 WBC RBC Hgb Hct MCV 76 L MCH 26 L MCHC RDW Lymph % (Auto) Smith % (Auto) Lymph # (Auto) Seg Neutrophils % Seg Neuts % (Manual) Lymphocytes % (Manual) Seg Neutrophils # Seg Neutrophils # Man Lymphocytes # (Manual) PT INR APTT D-Dimer Heparin Anti-Xa Level Sodium Potassium Chloride Carbon Dioxide BUN Creatinine Glucose POC Glucose 148 H 216 H Magnesium Ferritin AST Lactate Dehydrogenase Troponin T C-Reactive Protein NT-Pro-B Natriuret Pep Albumin Triglycerides HDL Cholesterol Coronavirus (PCR) 02/22/21 02/22/21 02/22/21 15:12 17:55 22:01 WBC RBC Hgb Hct MCV MCH MCHC RDW Lymph % (Auto) Smith % (Auto) Lymph # (Auto) Seg Neutrophils % Seg Neuts % (Manual) Lymphocytes % (Manual) Seg Neutrophils # Seg Neutrophils # Man Lymphocytes # (Manual) PT INR APTT 50.0 H D-Dimer Heparin Anti-Xa Level Sodium Potassium Chloride Carbon Dioxide BUN Creatinine Glucose POC Glucose 327 H 173 H Magnesium Ferritin AST Lactate Dehydrogenase Troponin T C-Reactive Protein NT-Pro-B Natriuret Pep Albumin Triglycerides HDL Cholesterol Coronavirus (PCR) 02/23/21 02/23/21 02/23/21 07:36 10:32 15:49 WBC RBC Hgb Hct MCV MCH MCHC RDW Lymph % (Auto) Smith % (Auto) Lymph # (Auto) Seg Neutrophils % Seg Neuts % (Manual) Lymphocytes % (Manual) Seg Neutrophils # Seg Neutrophils # Man Lymphocytes # (Manual) PT INR APTT D-Dimer Heparin Anti-Xa Level Sodium Potassium Chloride Carbon Dioxide BUN Creatinine Glucose POC Glucose 149 H 240 H 338 H Magnesium Ferritin AST Lactate Dehydrogenase Troponin T C-Reactive Protein NT-Pro-B Natriuret Pep Albumin Triglycerides HDL Cholesterol Coronavirus (PCR) 02/23/21 02/24/21 02/24/21 21:20 05:42 07:45 WBC RBC 5.26 H Hgb Hct MCV 77 L MCH 25 L MCHC RDW Lymph % (Auto) Smith % (Auto) Lymph # (Auto) Seg Neutrophils % Seg Neuts % (Manual) Lymphocytes % (Manual) Seg Neutrophils # Seg Neutrophils # Man Lymphocytes # (Manual) PT INR APTT D-Dimer Heparin Anti-Xa Level Sodium Potassium Chloride Carbon Dioxide BUN Creatinine Glucose POC Glucose 311 H 118 H Magnesium Ferritin AST Lactate Dehydrogenase Troponin T C-Reactive Protein NT-Pro-B Natriuret Pep Albumin Triglycerides HDL Cholesterol Coronavirus (PCR) 02/24/21 02/24/21 02/24/21 12:28 16:27 22:20 WBC RBC Hgb Hct MCV MCH MCHC RDW Lymph % (Auto) Smith % (Auto) Lymph # (Auto) Seg Neutrophils % Seg Neuts % (Manual) Lymphocytes % (Manual) Seg Neutrophils # Seg Neutrophils # Man Lymphocytes # (Manual) PT INR APTT D-Dimer Heparin Anti-Xa Level Sodium Potassium Chloride Carbon Dioxide BUN Creatinine Glucose POC Glucose 240 H 446 H 246 H Magnesium Ferritin AST Lactate Dehydrogenase Troponin T C-Reactive Protein NT-Pro-B Natriuret Pep Albumin Triglycerides HDL Cholesterol Coronavirus (PCR) 02/25/21 02/25/21 02/25/21 05:58 05:58 12:24 WBC RBC 5.72 H Hgb 14.5 H Hct 44.0 H MCV 77 L MCH 25 L MCHC RDW 15.5 H Lymph % (Auto) Smith % (Auto) 7.6 H Lymph # (Auto) Seg Neutrophils % 71.3 H Seg Neuts % (Manual) Lymphocytes % (Manual) Seg Neutrophils # Seg Neutrophils # Man Lymphocytes # (Manual) PT INR APTT D-Dimer Heparin Anti-Xa Level Sodium Potassium Chloride Carbon Dioxide BUN 18 H Creatinine Glucose POC Glucose 248 H Magnesium Ferritin AST Lactate Dehydrogenase Troponin T C-Reactive Protein NT-Pro-B Natriuret Pep Albumin Triglycerides HDL Cholesterol Coronavirus (PCR) 02/25/21 02/25/21 02/26/21 17:06 21:25 07:48 WBC RBC 5.24 H Hgb Hct MCV 78 L MCH 26 L MCHC RDW 15.5 H Lymph % (Auto) Smith % (Auto) Lymph # (Auto) Seg Neutrophils % Seg Neuts % (Manual) Lymphocytes % (Manual) Seg Neutrophils # Seg Neutrophils # Man Lymphocytes # (Manual) PT INR APTT D-Dimer Heparin Anti-Xa Level Sodium Potassium Chloride Carbon Dioxide BUN Creatinine Glucose POC Glucose 335 H 256 H Magnesium Ferritin AST Lactate Dehydrogenase Troponin T C-Reactive Protein NT-Pro-B Natriuret Pep Albumin Triglycerides HDL Cholesterol Coronavirus (PCR) 02/26/21 02/26/21 02/26/21 11:15 18:02 21:50 WBC RBC Hgb Hct MCV MCH MCHC RDW Lymph % (Auto) Smith % (Auto) Lymph # (Auto) Seg Neutrophils % Seg Neuts % (Manual) Lymphocytes % (Manual) Seg Neutrophils # Seg Neutrophils # Man Lymphocytes # (Manual) PT INR APTT D-Dimer Heparin Anti-Xa Level Sodium Potassium Chloride Carbon Dioxide BUN Creatinine Glucose POC Glucose 224 H 296 H 259 H Magnesium Ferritin AST Lactate Dehydrogenase Troponin T C-Reactive Protein NT-Pro-B Natriuret Pep Albumin Triglycerides HDL Cholesterol Coronavirus (PCR)
[2021-02-27] MEDS: CLOPIDOGREL 75 MG TAB PO SCH (11:30)
[2021-02-27] MEDS: APIXABAN 2.5 MG TAB PO SCH ×2 (13:00→23:07)
--- NOTE | 2021-02-27 13:09 | Progress Note ---
Assessment and Plan - Patient Problems (1) STEMI (ST elevation myocardial infarction) Current Visit: Yes Status: Acute Plan to address problem: Status post coronary stent to the distal right coronary artery for acute right coronary embolic occlusion in the setting of acute Covid viral pneumonia. (2) Venous thromboembolism Current Visit: Yes Status: Acute Plan to address problem: Patient also has evidence of venous thromboembolism with thrombus and transition in the right ventricle. In addition to dual oral antiplatelet therapy post right coronary stenting, she is on triple therapy with addition of Eliquis. Subjective Date of service: 02/27/21 Principal diagnosis: Covid-19 Interval history: Patient is comfortable, no acute distress. It is reported that due to persistent Covid infection, her oxygen requirements remain high. No new cardiac complaints. Objective Vital Signs Temp Pulse Resp BP Pulse Ox 02/27/21 10:39 92 02/27/21 06:43 98.6 F 78 20 114/80 92 02/27/21 03:31 91 02/27/21 00:00 79 02/26/21 22:57 94 02/26/21 21:52 98.7 F 92 H 20 140/90 93 02/26/21 20:47 18 95 02/26/21 20:00 79 02/26/21 18:05 97.7 F 79 24 121/68 91 02/26/21 13:43 98 - Physical Examination Narrative exam: Full physical exam is deferred due to acute Covid pneumonia. General: No Apparent Distress - Imaging and Cardiology Echo: other (02/14/2021 Echo - Normal LV and RV systolic function, thrombus in RV)
[2021-02-27] MEDS: METOPROLOL TARTRATE 50 MG TAB PO SCH ×2 (13:25→23:07)
--- NOTE | 2021-02-27 14:12 | Electrocardiograph Report ---
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
[2021-02-27] MEDS: dexAMETHasone 4 MG/ML VIAL IV SCH (14:26)
[2021-02-27] MEDS: FERROUS SULFATE 300 MG (60MG Elemental Iron) / 5 mL ORAL LIQD FEEDTUBE SCH ×2 (17:22→23:08)
[2021-02-27] MEDS: FAMOTIDINE 20 MG TAB PO SCH ×2 (17:24→23:07)
[2021-02-27] MEDS: INSULIN GLARGINE 100 UNITS/ML SUB-Q SCH (23:06)
[2021-02-28 07:05] LABS: Basophils % (Auto) 0.9 % (0.0-1.8); Eosinophils # (Auto) 0.5 K/mm3 (0.0-0.4); Eosinophils % (Auto) 13.7 % (0.0-4.3); Hematocrit 40.2 % (30.3-42.9); Hemoglobin 13.2 gm/dl (10.1-14.3); Lymphocytes # (Auto) 0.9 K/mm3 (1.2-5.4); Lymphocytes % (Auto) 23.7 % (13.4-35.0); Mean Corpuscular HGB Conc 33 % (30-34); Mean Corpuscular Volume 78 fl (79-97); Monocytes # (Auto) 0.4 K/mm3 (0.0-0.8); Monocytes % (Auto) 10.3 % (0.0-7.3); Platelet Count 165 K/mm3 (140-440); Red Blood Count 5.14 M/mm3 (3.65-5.03)
[2021-02-28] MEDS: INSULIN REGULAR, HUMAN 100 UNITS/1 ML SUB-Q SCH ×4 (07:05→22:52)
[2021-02-28 07:11] LABS: Blood Urea Nitrogen 16 mg/dL (7-17); Calcium 9.3 mg/dL (8.4-10.2); Hemolysis Index 4
[2021-02-28] MEDS: INSULIN LISPRO 100 UNIT/ML SUB-Q SCH ×4 (07:16→22:51)
[2021-02-28 07:20] LABS: BUN/Creatinine Ratio 23
--- NOTE | 2021-02-28 10:21 | Progress Note ---
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 RV thrombus Echocardiogram showed a mobile mass in the right ventricle, suggestive of venous thromboembolism in transition Acute CVA COVID-19 pneumonia Respiratory failure Diabetes Hypertension Continue triple therapy with plavix, aspirin, and low dose eliquis for treatment of venous thromboembolism in addition to her occlusive coronary thrombus requiring drug-eluting stent placement. Otherwise, conservative cardiac management. Subjective Date of service: 02/28/21 Principal diagnosis: Covid-19 Interval history: Patient has no complaints. No distress noted. Objective Vital Signs Temp Pulse Resp BP Pulse Ox 02/28/21 09:18 92 02/28/21 05:34 98.2 F 71 18 121/87 100 02/28/21 04:51 99 02/28/21 04:00 86 02/28/21 00:00 94 H 02/27/21 23:44 100 02/27/21 22:00 96 02/27/21 21:45 98.7 F 87 18 104/56 100 02/27/21 20:00 94 H 02/27/21 17:35 81 99 02/27/21 16:24 96 02/27/21 11:46 94 H 92 02/27/21 11:45 98.2 F 91 H 17 116/70 91 02/27/21 10:39 92 - Physical Examination Narrative exam: Deferred due to isolation protocol. General: No Apparent Distress Cardiac: Positive: Reg Rate and Rhythm Neuro: Positive: Other (Left hemiparesis) - Labs and Meds CBC 02/28/21 Range/Units 06:13 WBC 3.6 L (4.5-11.0) K/mm3 RBC 5.14 H (3.65-5.03) M/mm3 Hgb 13.2 (10.1-14.3) gm/dl Hct 40.2 (30.3-42.9) % Plt Count 165 (140-440) K/mm3 Lymph # (Auto) 0.9 L (1.2-5.4) K/mm3 Kaufman # (Auto) 0.4 (0.0-0.8) K/mm3 Eos # (Auto) 0.5 H (0.0-0.4) K/mm3 Baso # (Auto) 0.0 (0.0-0.1) K/mm3 Comprehensive Metabolic Panel 02/28/21 02/28/21 Range/Units 06:13 06:13 Sodium 141 (137-145) mmol/L Potassium 4.1 (3.6-5.0) mmol/L Chloride 102.8 (98-107) mmol/L Carbon Dioxide 29 (22-30) mmol/L BUN 16 (7-17) mg/dL Creatinine 0.7 0.7 (0.6-1.2) mg/dL Glucose 166 H (65-100) mg/dL Calcium 9.3 (8.4-10.2) mg/dL
--- NOTE | 2021-02-28 10:23 | Progress Note ---
Assessment and Plan 55 y/o female with STEMI and acute respiratory failure 03/01/21: Consider lasix. Continue steroids. Prone if possible. Guarded Prognosis. 02/28/21: Suggest some more lasix therapy. Steroids end on . Guarded Prognosis 02/24/21: Lasix today. Will ask RT about maybe trying a salter. K not checked today but will defer to primary on follow up. Continue steroids. Guarded prognosis. 02/23/21: Supportive care. Guarded prognosis. 02/22/21: CXR is unchanged. EF is 55%. Will speak with RT about the acute change from 50-100%. Hold on lasix today given K of 3.5 but would benefit from again. Guarded prognosis. 02/21/21: Will order CXR for today for review. Follow up echo results. hold on lasix until those results are back. Wean FiO2 for sats >88%. Will speak with RT about more detailed documentation to explain significant increases in oxygen requirement. 02/20/21: Wean for sats >88%. Steroids and Remdesivir. Will hold on lasix today although it did not make sodium worse so could consider repeat dosing. Guarded prognosis. 02/19/21: continue to wean for sats >88%. Steroids and remdesivir. Feel jason ent is stable enough to go to COVID floor or at least Step down. Needs more free water. Patient is taking po so can be given this way. Did give lasix x1 today to help with volume given I/O record. May make Na worse. 02/18/21: WEan FiO2 and flow for sats >88%. Continue therapy for COVID. Guide line therapy for CAD. Guarded prognosis. 02/17/21: Suspect family knew patient was COVID positive and did not tell us. 48 hours now behind on starting therapy, maybe longer. Agree with steroids. Will ask ID about Remdesivir and Actemra. Monitor fluids, BNP was still elevated despite normal EF. Wean FiO2 as tolerated and need to have patient manually prone. Follow up neurology recs as well as ID. Guarded prognosis. 02/16/21: Responded well to diuresis, will give more lasix today. Going for MRI today. Spoke with downstairs who is upset about lack of visitation. he also states that he has a neurologist who is willing to accept the patient to [facility] but he refused to give me the name of the physician. Will continue supportive measures. 1. Pulm- CXR appears to be more consistent with pulmonary edema and BNP is 4k. Stopped IVF's. Attempted to take of bipap but desats on cannula. Awake and tachypnic. Will give lasix 20mg IV x1 now to see if this helps with oxygen requirement. DO not feel this is infection. 2. Cards-STemi, goal directed therapy and follow up echo, done but not read yet. 3. Endo-elevated blood sugar likely related to acute mI, although patient could have underlying disease given age and weight, suggest checking A1C. 4. Guarded prognosis Subjective Date of service: 02/28/21 Principal diagnosis: Covid-19 Interval history: No acute events. Now on 11 liters was on 10 yesterday. Objective Vital Signs - 12hr 02/27/21 02/28/21 02/28/21 23:44 00:00 04:00 Temperature Pulse Rate 94 H 86 Respiratory Rate Blood Pressure O2 Sat by Pulse 100 Oximetry 02/28/21 02/28/21 02/28/21 04:51 05:34 09:18 Temperature 98.2 F Pulse Rate 71 Respiratory 18 Rate Blood Pressure 121/87 O2 Sat by Pulse 99 100 92 Oximetry Gastrointestinal: normoactive bowel sounds Integumentary: normal CBC and BMP: 02/28/21 06:13 02/28/21 06:13 ABG, PT/INR, D-dimer: PT/INR, D-dimer PT 14.1 Sec. (12.2-14.9) 02/22/21 15:12 INR 1.03 (0.87-1.13) 02/22/21 15:12 D-Dimer 4275.78 ng/mlDDU (0-234) H 02/20/21 06:39 Abnormal lab findings: Abnormal Labs 02/14/21 02/14/21 02/14/21 20:21 20:21 20:21 WBC 15.6 H RBC 5.55 H Hgb Hct 43.3 H MCV 78 L MCH 26 L MCHC RDW 16.3 H Lymph % (Auto) Hughes % (Auto) Eos % (Auto) Lymph # (Auto) Eos # (Auto) Seg Neutrophils % Seg Neuts % (Manual) 96.0 H Lymphocytes % (Manual) 3.0 L Seg Neutrophils # Seg Neutrophils # Man 15.0 H Lymphocytes # (Manual) 0.5 L PT 16.7 H INR 1.30 H APTT D-Dimer Heparin Anti-Xa Level Sodium 131 L Potassium 5.1 H Chloride 88.4 L Carbon Dioxide 20 L BUN 34 H Creatinine 1.5 H Glucose 574 H* POC Glucose Magnesium Ferritin AST Lactate Dehydrogenase Troponin T 0.882 H* C-Reactive Protein NT-Pro-B Natriuret Pep Albumin Triglycerides 292 H HDL Cholesterol 23 L Coronavirus (PCR) 02/14/21 02/14/21 02/14/21 20:21 23:11 23:20 WBC RBC Hgb Hct MCV MCH MCHC RDW Lymph % (Auto) Hughes % (Auto) Eos % (Auto) Lymph # (Auto) Eos # (Auto) Seg Neutrophils % Seg Neuts % (Manual) Lymphocytes % (Manual) Seg Neutrophils # Seg Neutrophils # Man Lymphocytes # (Manual) PT INR APTT D-Dimer Heparin Anti-Xa Level Sodium Potassium Chloride Carbon Dioxide BUN Creatinine Glucose POC Glucose 562 H 422 H Magnesium Ferritin AST Lactate Dehydrogenase Troponin T 0.892 H* C-Reactive Protein NT-Pro-B Natriuret Pep Albumin Triglycerides HDL Cholesterol Coronavirus (PCR) 02/15/21 02/15/21 02/15/21 03:55 03:55 05:29 WBC RBC 5.17 H Hgb Hct MCV 77 L MCH 26 L MCHC RDW 15.8 H Lymph % (Auto) 4.9 L Hughes % (Auto) Eos % (Auto) Lymph # (Auto) 0.5 L Eos # (Auto) Seg Neutrophils % 89.2 H Seg Neuts % (Manual) Lymphocytes % (Manual) Seg Neutrophils # 8.4 H Seg Neutrophils # Man Lymphocytes # (Manual) PT INR APTT D-Dimer Heparin Anti-Xa Level Sodium 136 L Potassium Chloride 97.3 L Carbon Dioxide 18 L BUN 33 H Creatinine Glucose 402 H POC Glucose 345 H Magnesium Ferritin AST 46 H Lactate Dehydrogenase Troponin T 0.992 H* C-Reactive Protein NT-Pro-B Natriuret Pep Albumin 3.0 L Triglycerides HDL Cholesterol Coronavirus (PCR) 02/15/21 02/15/21 02/15/21 08:38 08:38 08:38 WBC RBC Hgb Hct MCV 75 L MCH 26 L MCHC 35 H RDW 16.2 H Lymph % (Auto) Hughes % (Auto) Eos % (Auto) Lymph # (Auto) Eos # (Auto) Seg Neutrophils % Seg Neuts % (Manual) Lymphocytes % (Manual) Seg Neutrophils # Seg Neutrophils # Man Lymphocytes # (Manual) PT INR APTT D-Dimer Heparin Anti-Xa Level Sodium 135 L Potassium Chloride Carbon Dioxide 19 L BUN 31 H Creatinine Glucose 360 H POC Glucose Magnesium 2.50 H Ferritin AST Lactate Dehydrogenase Troponin T C-Reactive Protein NT-Pro-B Natriuret Pep 4086 H Albumin Triglycerides HDL Cholesterol Coronavirus (PCR) 02/15/21 02/15/21 02/15/21 11:15 17:28 18:20 WBC RBC Hgb Hct MCV MCH MCHC RDW Lymph % (Auto) Hughes % (Auto) Eos % (Auto) Lymph # (Auto) Eos # (Auto) Seg Neutrophils % Seg Neuts % (Manual) Lymphocytes % (Manual) Seg Neutrophils # Seg Neutrophils # Man Lymphocytes # (Manual) PT INR APTT D-Dimer > 17447 H Heparin Anti-Xa Level Sodium Potassium Chloride Carbon Dioxide BUN Creatinine Glucose POC Glucose 317 H 311 H Magnesium Ferritin AST Lactate Dehydrogenase Troponin T C-Reactive Protein NT-Pro-B Natriuret Pep Albumin Triglycerides HDL Cholesterol Coronavirus (PCR) 02/15/21 02/15/21 02/15/21 18:20 18:20 18:20 WBC RBC Hgb Hct MCV MCH MCHC RDW Lymph % (Auto) Hughes % (Auto) Eos % (Auto) Lymph # (Auto) Eos # (Auto) Seg Neutrophils % Seg Neuts % (Manual) Lymphocytes % (Manual) Seg Neutrophils # Seg Neutrophils # Man Lymphocytes # (Manual) PT 15.8 H INR 1.20 H APTT D-Dimer Heparin Anti-Xa Level Sodium Potassium Chloride Carbon Dioxide BUN Creatinine Glucose POC Glucose Magnesium Ferritin 837.7 H AST Lactate Dehydrogenase 766 H Troponin T C-Reactive Protein 21.50 H NT-Pro-B Natriuret Pep Albumin Triglycerides HDL Cholesterol Coronavirus (PCR) 02/15/21 02/16/21 02/16/21 23:45 02:44 02:44 WBC RBC Hgb Hct MCV 77 L MCH 26 L MCHC RDW 16.0 H Lymph % (Auto) Hughes % (Auto) Eos % (Auto) Lymph # (Auto) Eos # (Auto) Seg Neutrophils % Seg Neuts % (Manual) Lymphocytes % (Manual) Seg Neutrophils # Seg Neutrophils # Man Lymphocytes # (Manual) PT INR APTT D-Dimer Heparin Anti-Xa Level Sodium Potassium Chloride Carbon Dioxide BUN 27 H Creatinine Glucose 269 H POC Glucose 203 H Magnesium Ferritin AST Lactate Dehydrogenase Troponin T C-Reactive Protein NT-Pro-B Natriuret Pep Albumin Triglycerides HDL Cholesterol Coronavirus (PCR) 02/16/21 02/16/21 02/16/21 05:47 11:50 15:00 WBC RBC Hgb Hct MCV MCH MCHC RDW Lymph % (Auto) Hughes % (Auto) Eos % (Auto) Lymph # (Auto) Eos # (Auto) Seg Neutrophils % Seg Neuts % (Manual) Lymphocytes % (Manual) Seg Neutrophils # Seg Neutrophils # Man Lymphocytes # (Manual) PT INR APTT D-Dimer Heparin Anti-Xa Level < 0.10 L Sodium Potassium Chloride Carbon Dioxide BUN Creatinine Glucose POC Glucose 275 H 251 H Magnesium Ferritin AST Lactate Dehydrogenase Troponin T C-Reactive Protein NT-Pro-B Natriuret Pep Albumin Triglycerides HDL Cholesterol Coronavirus (PCR) 02/16/21 02/16/21 02/16/21 18:23 23:30 23:57 WBC RBC Hgb Hct MCV MCH MCHC RDW Lymph % (Auto) Hughes % (Auto) Eos % (Auto) Lymph # (Auto) Eos # (Auto) Seg Neutrophils % Seg Neuts % (Manual) Lymphocytes % (Manual) Seg Neutrophils # Seg Neutrophils # Man Lymphocytes # (Manual) PT INR APTT D-Dimer Heparin Anti-Xa Level < 0.10 L Sodium Potassium Chloride Carbon Dioxide BUN Creatinine Glucose POC Glucose 237 H 249 H Magnesium Ferritin AST Lactate Dehydrogenase Troponin T C-Reactive Protein NT-Pro-B Natriuret Pep Albumin Triglycerides HDL Cholesterol Coronavirus (PCR) 02/16/21 02/17/21 02/17/21 Unknown 05:25 06:18 WBC RBC Hgb Hct MCV MCH MCHC RDW Lymph % (Auto) Hughes % (Auto) Eos % (Auto) Lymph # (Auto) Eos # (Auto) Seg Neutrophils % Seg Neuts % (Manual) Lymphocytes % (Manual) Seg Neutrophils # Seg Neutrophils # Man Lymphocytes # (Manual) PT INR APTT D-Dimer Heparin Anti-Xa Level Sodium Potassium Chloride Carbon Dioxide BUN Creatinine Glucose POC Glucose 238 H 229 H Magnesium Ferritin AST Lactate Dehydrogenase Troponin T C-Reactive Protein NT-Pro-B Natriuret Pep Albumin Triglycerides HDL Cholesterol Coronavirus (PCR) Positive A 02/17/21 02/17/21 02/17/21 11:35 13:30 13:30 WBC RBC Hgb Hct MCV MCH MCHC RDW Lymph % (Auto) Hughes % (Auto) Eos % (Auto) Lymph # (Auto) Eos # (Auto) Seg Neutrophils % Seg Neuts % (Manual) Lymphocytes % (Manual) Seg Neutrophils # Seg Neutrophils # Man Lymphocytes # (Manual) PT INR APTT D-Dimer Heparin Anti-Xa Level 0.29 L Sodium 146 H D Potassium Chloride 107.3 H Carbon Dioxide BUN 29 H Creatinine Glucose 334 H POC Glucose 279 H Magnesium Ferritin AST Lactate Dehydrogenase Troponin T C-Reactive Protein NT-Pro-B Natriuret Pep Albumin Triglycerides HDL Cholesterol Coronavirus (PCR) 02/17/21 02/17/21 02/17/21 13:30 13:30 16:42 WBC RBC Hgb Hct MCV 77 L MCH 25 L MCHC RDW 16.1 H Lymph % (Auto) Hughes % (Auto) Eos % (Auto) Lymph # (Auto) Eos # (Auto) Seg Neutrophils % Seg Neuts % (Manual) Lymphocytes % (Manual) Seg Neutrophils # Seg Neutrophils # Man Lymphocytes # (Manual) PT INR APTT D-Dimer Heparin Anti-Xa Level Sodium 146 H Potassium Chloride Carbon Dioxide BUN 29 H Creatinine Glucose 340 H POC Glucose 291 H Magnesium Ferritin AST Lactate Dehydrogenase Troponin T C-Reactive Protein NT-Pro-B Natriuret Pep Albumin 2.7 L Triglycerides HDL Cholesterol Coronavirus (PCR) 02/17/21 02/18/21 02/18/21 21:43 04:40 04:40 WBC RBC Hgb Hct MCV 78 L MCH 26 L MCHC RDW 16.3 H Lymph % (Auto) Hughes % (Auto) Eos % (Auto) Lymph # (Auto) Eos # (Auto) Seg Neutrophils % Seg Neuts % (Manual) Lymphocytes % (Manual) Seg Neutrophils # Seg Neutrophils # Man Lymphocytes # (Manual) PT INR APTT D-Dimer Heparin Anti-Xa Level Sodium 149 H Potassium Chloride 108.9 H Carbon Dioxide BUN 34 H Creatinine Glucose 318 H POC Glucose 288 H Magnesium Ferritin AST Lactate Dehydrogenase Troponin T C-Reactive Protein 14.50 H NT-Pro-B Natriuret Pep Albumin 3.0 L Triglycerides HDL Cholesterol Coronavirus (PCR) 02/18/21 02/18/21 02/18/21 04:40 08:02 11:30 WBC RBC Hgb Hct MCV MCH MCHC RDW Lymph % (Auto) Hughes % (Auto) Eos % (Auto) Lymph # (Auto) Eos # (Auto) Seg Neutrophils % Seg Neuts % (Manual) Lymphocytes % (Manual) Seg Neutrophils # Seg Neutrophils # Man Lymphocytes # (Manual) PT INR APTT D-Dimer 3846.94 H Heparin Anti-Xa Level Sodium Potassium Chloride Carbon Dioxide BUN Creatinine Glucose POC Glucose 263 H 309 H Magnesium Ferritin AST Lactate Dehydrogenase Troponin T C-Reactive Protein NT-Pro-B Natriuret Pep Albumin Triglycerides HDL Cholesterol Coronavirus (PCR) 02/18/21 02/18/21 02/18/21 12:29 21:56 22:34 WBC RBC Hgb Hct MCV MCH MCHC RDW Lymph % (Auto) Hughes % (Auto) Eos % (Auto) Lymph # (Auto) Eos # (Auto) Seg Neutrophils % Seg Neuts % (Manual) Lymphocytes % (Manual) Seg Neutrophils # Seg Neutrophils # Man Lymphocytes # (Manual) PT INR APTT D-Dimer Heparin Anti-Xa Level 0.29 L Sodium Potassium Chloride Carbon Dioxide BUN Creatinine Glucose POC Glucose 313 H 284 H Magnesium Ferritin AST Lactate Dehydrogenase Troponin T C-Reactive Protein NT-Pro-B Natriuret Pep Albumin Triglycerides HDL Cholesterol Coronavirus (PCR) 02/18/21 02/19/21 02/19/21 23:52 06:11 07:54 WBC RBC Hgb Hct MCV MCH MCHC RDW Lymph % (Auto) Hughes % (Auto) Eos % (Auto) Lymph # (Auto) Eos # (Auto) Seg Neutrophils % Seg Neuts % (Manual) Lymphocytes % (Manual) Seg Neutrophils # Seg Neutrophils # Man Lymphocytes # (Manual) PT INR APTT D-Dimer Heparin Anti-Xa Level Sodium 151 H Potassium Chloride 110.6 H Carbon Dioxide BUN 28 H Creatinine Glucose 191 H POC Glucose 272 H 155 H Magnesium Ferritin AST Lactate Dehydrogenase Troponin T C-Reactive Protein NT-Pro-B Natriuret Pep Albumin 3.0 L Triglycerides HDL Cholesterol Coronavirus (PCR) 02/19/21 02/19/21 02/19/21 12:37 16:29 21:28 WBC RBC Hgb Hct MCV MCH MCHC RDW Lymph % (Auto) Hughes % (Auto) Eos % (Auto) Lymph # (Auto) Eos # (Auto) Seg Neutrophils % Seg Neuts % (Manual) Lymphocytes % (Manual) Seg Neutrophils # Seg Neutrophils # Man Lymphocytes # (Manual) PT INR APTT D-Dimer Heparin Anti-Xa Level Sodium Potassium Chloride Carbon Dioxide BUN Creatinine Glucose POC Glucose 233 H 268 H 298 H Magnesium Ferritin AST Lactate Dehydrogenase Troponin T C-Reactive Protein NT-Pro-B Natriuret Pep Albumin Triglycerides HDL Cholesterol Coronavirus (PCR) 02/19/21 02/20/21 02/20/21 23:34 06:39 06:39 WBC RBC 5.08 H Hgb Hct MCV 77 L MCH 25 L MCHC RDW 16.0 H Lymph % (Auto) Hughes % (Auto) Eos % (Auto) Lymph # (Auto) Eos # (Auto) Seg Neutrophils % Seg Neuts % (Manual) 88.0 H Lymphocytes % (Manual) 4.0 L Seg Neutrophils # Seg Neutrophils # Man Lymphocytes # (Manual) 0.2 L PT INR APTT D-Dimer 4275.78 H Heparin Anti-Xa Level 0.26 L Sodium Potassium Chloride Carbon Dioxide BUN Creatinine Glucose POC Glucose Magnesium Ferritin AST Lactate Dehydrogenase Troponin T C-Reactive Protein NT-Pro-B Natriuret Pep Albumin Triglycerides HDL Cholesterol Coronavirus (PCR) 02/20/21 02/20/21 02/20/21 06:39 06:39 08:45 WBC RBC Hgb Hct MCV MCH MCHC RDW Lymph % (Auto) Hughes % (Auto) Eos % (Auto) Lymph # (Auto) Eos # (Auto) Seg Neutrophils % Seg Neuts % (Manual) Lymphocytes % (Manual) Seg Neutrophils # Seg Neutrophils # Man Lymphocytes # (Manual) PT INR APTT D-Dimer Heparin Anti-Xa Level Sodium 152 H 151 H Potassium Chloride 112.0 H 111.4 H Carbon Dioxide 31 H BUN 23 H 23 H Creatinine Glucose 119 H 140 H POC Glucose Magnesium Ferritin 915.5 H AST Lactate Dehydrogenase 645 H Troponin T C-Reactive Protein 3.60 H NT-Pro-B Natriuret Pep Albumin 3.1 L Triglycerides HDL Cholesterol Coronavirus (PCR) 02/20/21 02/20/21 02/20/21 11:57 18:01 22:20 WBC RBC Hgb Hct MCV MCH MCHC RDW Lymph % (Auto) Hughes % (Auto) Eos % (Auto) Lymph # (Auto) Eos # (Auto) Seg Neutrophils % Seg Neuts % (Manual) Lymphocytes % (Manual) Seg Neutrophils # Seg Neutrophils # Man Lymphocytes # (Manual) PT INR APTT D-Dimer Heparin Anti-Xa Level Sodium Potassium Chloride Carbon Dioxide BUN Creatinine Glucose POC Glucose 217 H 337 H 379 H Magnesium Ferritin AST Lactate Dehydrogenase Troponin T C-Reactive Protein NT-Pro-B Natriuret Pep Albumin Triglycerides HDL Cholesterol Coronavirus (PCR) 02/21/21 02/21/21 02/21/21 07:43 11:42 16:30 WBC RBC Hgb Hct MCV MCH MCHC RDW Lymph % (Auto) Hughes % (Auto) Eos % (Auto) Lymph # (Auto) Eos # (Auto) Seg Neutrophils % Seg Neuts % (Manual) Lymphocytes % (Manual) Seg Neutrophils # Seg Neutrophils # Man Lymphocytes # (Manual) PT INR APTT D-Dimer Heparin Anti-Xa Level Sodium Potassium Chloride Carbon Dioxide BUN Creatinine Glucose POC Glucose 152 H 206 H 235 H Magnesium Ferritin AST Lactate Dehydrogenase Troponin T C-Reactive Protein NT-Pro-B Natriuret Pep Albumin Triglycerides HDL Cholesterol Coronavirus (PCR) 02/21/21 02/22/21 02/22/21 21:56 05:51 06:50 WBC RBC Hgb Hct MCV MCH MCHC RDW Lymph % (Auto) Hughes % (Auto) Eos % (Auto) Lymph # (Auto) Eos # (Auto) Seg Neutrophils % Seg Neuts % (Manual) Lymphocytes % (Manual) Seg Neutrophils # Seg Neutrophils # Man Lymphocytes # (Manual) PT INR APTT D-Dimer Heparin Anti-Xa Level Sodium Potassium 3.5 L Chloride Carbon Dioxide 31 H BUN 19 H Creatinine Glucose 118 H POC Glucose 205 H 121 H Magnesium Ferritin AST Lactate Dehydrogenase Troponin T C-Reactive Protein NT-Pro-B Natriuret Pep Albumin Triglycerides HDL Cholesterol Coronavirus (PCR) 02/22/21 02/22/21 02/22/21 07:55 11:47 15:12 WBC RBC Hgb Hct MCV 76 L MCH 26 L MCHC RDW Lymph % (Auto) Hughes % (Auto) Eos % (Auto) Lymph # (Auto) Eos # (Auto) Seg Neutrophils % Seg Neuts % (Manual) Lymphocytes % (Manual) Seg Neutrophils # Seg Neutrophils # Man Lymphocytes # (Manual) PT INR APTT D-Dimer Heparin Anti-Xa Level Sodium Potassium Chloride Carbon Dioxide BUN Creatinine Glucose POC Glucose 148 H 216 H Magnesium Ferritin AST Lactate Dehydrogenase Troponin T C-Reactive Protein NT-Pro-B Natriuret Pep Albumin Triglycerides HDL Cholesterol Coronavirus (PCR) 02/22/21 02/22/21 02/22/21 15:12 17:55 22:01 WBC RBC Hgb Hct MCV MCH MCHC RDW Lymph % (Auto) Hughes % (Auto) Eos % (Auto) Lymph # (Auto) Eos # (Auto) Seg Neutrophils % Seg Neuts % (Manual) Lymphocytes % (Manual) Seg Neutrophils # Seg Neutrophils # Man Lymphocytes # (Manual) PT INR APTT 50.0 H D-Dimer Heparin Anti-Xa Level Sodium Potassium Chloride Carbon Dioxide BUN Creatinine Glucose POC Glucose 327 H 173 H Magnesium Ferritin AST Lactate Dehydrogenase Troponin T C-Reactive Protein NT-Pro-B Natriuret Pep Albumin Triglycerides HDL Cholesterol Coronavirus (PCR) 02/23/21 02/23/21 02/23/21 07:36 10:32 15:49 WBC RBC Hgb Hct MCV MCH MCHC RDW Lymph % (Auto) Hughes % (Auto) Eos % (Auto) Lymph # (Auto) Eos # (Auto) Seg Neutrophils % Seg Neuts % (Manual) Lymphocytes % (Manual) Seg Neutrophils # Seg Neutrophils # Man Lymphocytes # (Manual) PT INR APTT D-Dimer Heparin Anti-Xa Level Sodium Potassium Chloride Carbon Dioxide BUN Creatinine Glucose POC Glucose 149 H 240 H 338 H Magnesium Ferritin AST Lactate Dehydrogenase Troponin T C-Reactive Protein NT-Pro-B Natriuret Pep Albumin Triglycerides HDL Cholesterol Coronavirus (PCR) 02/23/21 02/24/21 02/24/21 21:20 05:42 07:45 WBC RBC 5.26 H Hgb Hct MCV 77 L MCH 25 L MCHC RDW Lymph % (Auto) Hughes % (Auto) Eos % (Auto) Lymph # (Auto) Eos # (Auto) Seg Neutrophils % Seg Neuts % (Manual) Lymphocytes % (Manual) Seg Neutrophils # Seg Neutrophils # Man Lymphocytes # (Manual) PT INR APTT D-Dimer Heparin Anti-Xa Level Sodium Potassium Chloride Carbon Dioxide BUN Creatinine Glucose POC Glucose 311 H 118 H Magnesium Ferritin AST Lactate Dehydrogenase Troponin T C-Reactive Protein NT-Pro-B Natriuret Pep Albumin Triglycerides HDL Cholesterol Coronavirus (PCR) 02/24/21 02/24/21 02/24/21 12:28 16:27 22:20 WBC RBC Hgb Hct MCV MCH MCHC RDW Lymph % (Auto) Hughes % (Auto) Eos % (Auto) Lymph # (Auto) Eos # (Auto) Seg Neutrophils % Seg Neuts % (Manual) Lymphocytes % (Manual) Seg Neutrophils # Seg Neutrophils # Man Lymphocytes # (Manual) PT INR APTT D-Dimer Heparin Anti-Xa Level Sodium Potassium Chloride Carbon Dioxide BUN Creatinine Glucose POC Glucose 240 H 446 H 246 H Magnesium Ferritin AST Lactate Dehydrogenase Troponin T C-Reactive Protein NT-Pro-B Natriuret Pep Albumin Triglycerides HDL Cholesterol Coronavirus (PCR) 02/25/21 02/25/21 02/25/21 05:58 05:58 12:24 WBC RBC 5.72 H Hgb 14.5 H Hct 44.0 H MCV 77 L MCH 25 L MCHC RDW 15.5 H Lymph % (Auto) Hughes % (Auto) 7.6 H Eos % (Auto) Lymph # (Auto) Eos # (Auto) Seg Neutrophils % 71.3 H Seg Neuts % (Manual) Lymphocytes % (Manual) Seg Neutrophils # Seg Neutrophils # Man Lymphocytes # (Manual) PT INR APTT D-Dimer Heparin Anti-Xa Level Sodium Potassium Chloride Carbon Dioxide BUN 18 H Creatinine Glucose POC Glucose 248 H Magnesium Ferritin AST Lactate Dehydrogenase Troponin T C-Reactive Protein NT-Pro-B Natriuret Pep Albumin Triglycerides HDL Cholesterol Coronavirus (PCR) 02/25/21 02/25/21 02/26/21 17:06 21:25 07:48 WBC RBC 5.24 H Hgb Hct MCV 78 L MCH 26 L MCHC RDW 15.5 H Lymph % (Auto) Hughes % (Auto) Eos % (Auto) Lymph # (Auto) Eos # (Auto) Seg Neutrophils % Seg Neuts % (Manual) Lymphocytes % (Manual) Seg Neutrophils # Seg Neutrophils # Man Lymphocytes # (Manual) PT INR APTT D-Dimer Heparin Anti-Xa Level Sodium Potassium Chloride Carbon Dioxide BUN Creatinine Glucose POC Glucose 335 H 256 H Magnesium Ferritin AST Lactate Dehydrogenase Troponin T C-Reactive Protein NT-Pro-B Natriuret Pep Albumin Triglycerides HDL Cholesterol Coronavirus (PCR) 02/26/21 02/26/21 02/26/21 11:15 18:02 21:50 WBC RBC Hgb Hct MCV MCH MCHC RDW Lymph % (Auto) Hughes % (Auto) Eos % (Auto) Lymph # (Auto) Eos # (Auto) Seg Neutrophils % Seg Neuts % (Manual) Lymphocytes % (Manual) Seg Neutrophils # Seg Neutrophils # Man Lymphocytes # (Manual) PT INR APTT D-Dimer Heparin Anti-Xa Level Sodium Potassium Chloride Carbon Dioxide BUN Creatinine Glucose POC Glucose 224 H 296 H 259 H Magnesium Ferritin AST Lactate Dehydrogenase Troponin T C-Reactive Protein NT-Pro-B Natriuret Pep Albumin Triglycerides HDL Cholesterol Coronavirus (PCR) 02/27/21 02/27/21 02/27/21 11:47 17:33 21:42 WBC RBC Hgb Hct MCV MCH MCHC RDW Lymph % (Auto) Hughes % (Auto) Eos % (Auto) Lymph # (Auto) Eos # (Auto) Seg Neutrophils % Seg Neuts % (Manual) Lymphocytes % (Manual) Seg Neutrophils # Seg Neutrophils # Man Lymphocytes # (Manual) PT INR APTT D-Dimer Heparin Anti-Xa Level Sodium Potassium Chloride Carbon Dioxide BUN Creatinine Glucose POC Glucose 188 H 285 H 268 H Magnesium Ferritin AST Lactate Dehydrogenase Troponin T C-Reactive Protein NT-Pro-B Natriuret Pep Albumin Triglycerides HDL Cholesterol Coronavirus (PCR) 02/28/21 02/28/21 02/28/21 06:13 06:13 07:49 WBC 3.6 L RBC 5.14 H Hgb Hct MCV 78 L MCH 26 L MCHC RDW 16.0 H Lymph % (Auto) Hughes % (Auto) 10.3 H Eos % (Auto) 13.7 H Lymph # (Auto) 0.9 L Eos # (Auto) 0.5 H Seg Neutrophils % Seg Neuts % (Manual) Lymphocytes % (Manual) Seg Neutrophils # Seg Neutrophils # Man Lymphocytes # (Manual) PT INR APTT D-Dimer Heparin Anti-Xa Level Sodium Potassium Chloride Carbon Dioxide BUN Creatinine Glucose 166 H POC Glucose 150 H Magnesium Ferritin AST Lactate Dehydrogenase Troponin T C-Reactive Protein NT-Pro-B Natriuret Pep Albumin Triglycerides HDL Cholesterol Coronavirus (PCR)
[2021-02-28] MEDS: FAMOTIDINE 20 MG TAB PO SCH ×2 (12:00→22:47)
[2021-02-28] MEDS: dexAMETHasone 4 MG/ML VIAL IV SCH (12:00)
[2021-02-28] MEDS: FERROUS SULFATE 300 MG (60MG Elemental Iron) / 5 mL ORAL LIQD FEEDTUBE SCH ×2 (12:00→22:47)
[2021-02-28] MEDS: METOPROLOL TARTRATE 50 MG TAB PO SCH ×2 (13:00→22:48)
[2021-02-28] MEDS: CLOPIDOGREL 75 MG TAB PO SCH (13:00)
[2021-02-28] MEDS: APIXABAN 2.5 MG TAB PO SCH ×2 (13:00→22:48)
--- NOTE | 2021-02-28 13:31 | Progress Note ---
Assessment and Plan Assessment and plan: 55-year-old female with PmHx of HTN, uterine fibroids and ex-smoker admitted for acute right MCA CVA and STEMI s/p PCI in RCA, now with acute respiratory distress requiring continuous Bipap. Acute right MCA CVA - 02/13/21- CT head shows microvascular angiopathy, decreased attenuation along the posterior right frontal subcortical region, no acute intracranial hemorrhage - 02/13/2021- CTA head shows decreased attenuation along the posterior right frontal lobe, no CT evidence of significant stenosis involving proximal cerebral branches particularly the proximal right MCA - 02/13/21- CTA neck shows mild atherosclerotic calcification involving the proximal internal carotid arteries bilaterally without significant stenosis - MRI brain and MRA brain and neck reveals several scattered foci are recent infarct in both the cerebellum and cerebral hemispheres. No hemorrhage or ad verse mass-effect. Findings likely indicate embolic phenomenon. - Not candidate for any intervention- out of the time window - PT/OT/ST eval - Neurology consulted, appreciate recommendations STEMI s/p PCI in RCA, h/o HTN Rt. Ventricle Thrombus - 02/13/2021 Echo: EF 55%, mild concentric left ventricular Hypertrophy,suspected thrombus in right ventricle - Heparin protocol initiated, ok to transition to warfarin or NOAC on d/c - On Statin, beta-silas, Plavix and aspirin - 02/16 X1 dose rectal ASA- due to NPO status - Strict I&O Acute hypoxic respiratory secondary to COVID COVID-19 Pneumonia Dysphagia - Speech eval completed, pass swallow - Pureed diet with thin liquid order Acute kidney injury - improving - Initial cr. 1.5. Sepsis 2/2 bilateral PNA, COVID PNA Anemia - On heparin gtt per protocol, ASA and plavix - Monitor for s/s of bleeding Hyperglycemia - Lantus increased to 10 units SUBQ Hospital Course to date: 02/16/21- Patient AAOX4, with slurred speech and Lt. sided weakness. MRI/MRA brain pending. Remains on continuous Bipap, failed optiflow trial overnight. Bilateral infiltrate noted on today CXR additional lasix was adminstered to optimize Respiratory status, However was D/C due to marginal BP concern for Hypoperfusion. Will reassess in the Am. Plan to wean off Bipap as tolerated. Patient has been NPO due to continuous Bipap. When patient is off bipap nurse to complete bedside swallow screen, if fail will place NGT so pateint can received PO meds. Low grade temp today, TMAX 101.2 in last 24hrs, Bcult pending, on IV abx, ceftriaxone and azithromycin. COVID swab result pending, ID on the case rec to start dexamethasone 6 mg IV/p.o. daily for 10 days. 02/17/21- COVID PCR can back possible, patient was already on Rocephin and azithromaci, added Remdesevir per protocol, and IV decadron was initiated. Patient was wean to heated high flow, currently on 70% FiO2 and 40L. Wean O2 supplement as tolerated for a SPO2b goal above 88%. Persistent hyperglycemia, lantus increased to 10 units. Speech eval completed, patient pass swallow, order placed for pureed diet with thin liquid. Will continue to monitor, Heparing gtt per protocol, Am labs ordered. 02/18/21-blood sugars this morning over 300. Ordered 10 units of IV insulin once. Added 5 units scheduled insulin in addition to sliding scale insulin. Diet change to diabetic diet. 02/19/21: Transfer to floor. NG tube d/c. 02/20/21: Will get speech therapy to re-evaluate patient to see if patient can be escalated from pureed diet. Cardiology recommendations noted, BB is increased. Continue supportive management for covid 19 pneumonia. HFNC currently at 35 l/min/fio2=60%. Ok with sats > 88%. Attempted to call Durga but voicemail was to another person in chart. Will attempt to find another number to update . 02/21/2021. Patient currently with 35 L of oxygen with an FiO2 of 70%. Continue statin therapy, beta blockers, and DAPT with plavix and aspirin per cardiology recommendation. Continue intravenous heparin, ultimately will be transitioned to long-term warfarin therapy or a NOAC. 02/22/2021. Patient's oxygen requirement has been decreased to 30 L/min via HFNC with FiO2 50%. Continue per ID and pulmonary recommendations. Patient received Actemra 02/17/2021. Complete remdesivir x5 days. Complete dexamethasone IV for 10 days. Cardiology also recommends continued statin therapy, beta-blockers and DAPT with Plavix and aspirin. Continue IV heparin and transition to long-term warfarin or NOAC per cardiology 02/23/2021. Chest x-ray from yesterday is unchanged. Patient currently on high flow nasal cannula 30 L/min with FiO2 35%. Continue per ID and pulmonary recommendations. Patient received Actemra 02/17/2021. Complete remdesivir x5 days. Complete dexamethasone IV for 10 days. Cardiology also recommends continued statin therapy, beta-blockers and DAPT with Plavix and aspirin. Continue IV heparin and transition to long-term warfarin or NOAC per cardiology 02/24/2021. Patient remains on high flow nasal cannula 30 L O2 with FiO2 35%. Patient will complete dexamethasone on 02/26/2021. Patient is s/p remdesivir and Actemra. Continue prone positioning as able. Continue statin therapy, beta- blockers and DAPT with Plavix and aspirin. Continue IV heparin and transition to long-term warfarin or NOAC per cardiology 02/25/2021. Patient on high flow nasal cannula with 15 L and FiO2 of 30%. C ontinue dexamethasone until tomorrow. Patient is s/p remdesivir and Actemra. Continue prone positioning as able. Continue statin therapy, beta-blockers and DAPT with Plavix and aspirin. Continue IV heparin and transition to long-term warfarin or NOAC per cardiology 02/26/2021. Patient on high flow nasal cannula with 15 L and FiO2 of 30%. Continue dexamethasone for total of 14 days per pulmonary recommendations. Patient is s/p remdesivir and Actemra. Continue prone positioning as able. Co ntinue statin therapy, beta-blockers and DAPT with Plavix and aspirin. Continue IV heparin and transition to long-term warfarin or NOAC per cardiology 02/27/2021. Patient on high flow nasal cannula with 15 L and FiO2 of 25%. Continue dexamethasone for total of 14 days per pulmonary recommendations. Resume dexamethasone 10 mg IV daily for 4 more days. Patient is s/p remdesivir and Actemra. Continue prone positioning as able. Continue statin therapy, beta-blockers and DAPT with Plavix and aspirin. Cardiology initiated anticoagulation with Eliquis. 02/28/21 patient with Covid-19 She is on Oxygen at 11 l/min, down from 15 l/min yesterday. History Interval history: Shortness of breath Cough Hospitalist Physical - Physical exam Narrative exam: Gen: Not in acute distress, lying in bed, On Oxygen by NC HEENT: Normocephalic, atraumatic Lungs: Bilateral crackles, no wheeze Heart: S1 and S2 reg, no murmurs, rubs or gallop Abd:soft, non-tender, non distended, normal bowel sounds Ext: No edema, clubbing or cyanosis Neuro: Awake, alert, oriented X 3, moves all extremities - Constitutional Vitals: Temp Pulse Resp BP Pulse Ox 98.2 F 80 20 96/62 99 02/28/21 11:21 02/28/21 11:21 02/28/21 11:21 02/28/21 11:21 02/28/21 11:21 General appearance: Present: mild distress, well-nourished HEART Score - HEART Score Troponin: Troponin T 0.992 ng/mL (0.00-0.029) H* 02/15/21 03:55 Results - Labs CBC & Chem 7: 02/28/21 06:13 02/28/21 06:13 Labs: Laboratory Last Values WBC 3.6 K/mm3 (4.5-11.0) L 02/28/21 06:13 RBC 5.14 M/mm3 (3.65-5.03) H 02/28/21 06:13 Hgb 13.2 gm/dl (10.1-14.3) 02/28/21 06:13 Hct 40.2 % (30.3-42.9) 02/28/21 06:13 MCV 78 fl (79-97) L 02/28/21 06:13 MCH 26 pg (28-32) L 02/28/21 06:13 MCHC 33 % (30-34) 02/28/21 06:13 RDW 16.0 % (13.2-15.2) H 02/28/21 06:13 Plt Count 165 K/mm3 (140-440) 02/28/21 06:13 Lymph % (Auto) 23.7 % (13.4-35.0) 02/28/21 06:13 Mills % (Auto) 10.3 % (0.0-7.3) H 02/28/21 06:13 Eos % (Auto) 13.7 % (0.0-4.3) H 02/28/21 06:13 Baso % (Auto) 0.9 % (0.0-1.8) 02/28/21 06:13 Lymph # (Auto) 0.9 K/mm3 (1.2-5.4) L 02/28/21 06:13 [place] # (Auto) 0.4 K/mm3 (0.0-0.8) 02/28/21 06:13 Eos # (Auto) 0.5 K/mm3 (0.0-0.4) H 02/28/21 06:13 Baso # (Auto) 0.0 K/mm3 (0.0-0.1) 02/28/21 06:13 Add Manual Diff Complete 02/20/21 06:39 Total Counted 100 02/20/21 06:39 Seg Neutrophils % 51.4 % (40.0-70.0) 02/28/21 06:13 Seg Neuts % (Manual) 88.0 % (40.0-70.0) H 02/20/21 06:39 Lymphocytes % (Manual) 4.0 % (13.4-35.0) L 02/20/21 06:39 Reactive Lymphs % (Man) 2.0 % 02/20/21 06:39 Monocytes % (Manual) 3.0 % (0.0-7.3) 02/20/21 06:39 Eosinophils % (Manual) 1.0 % (0.0-4.3) 02/20/21 06:39 Myelocytes % 2.0 % 02/20/21 06:39 Nucleated RBC % Not Reportable 02/20/21 06:39 Seg Neutrophils # 1.9 K/mm3 (1.8-7.7) 02/28/21 06:13 Seg Neutrophils # Man 5.5 K/mm3 (1.8-7.7) 02/20/21 06:39 Band Neutrophils # 0.0 K/mm3 02/20/21 06:39 Lymphocytes # (Manual) 0.2 K/mm3 (1.2-5.4) L 02/20/21 06:39 Abs React Lymphs (Man) 0.1 K/mm3 02/20/21 06:39 Monocytes # (Manual) 0.2 K/mm3 (0.0-0.8) 02/20/21 06:39 Eosinophils # (Manual) 0.1 K/mm3 (0.0-0.4) 02/20/21 06:39 Basophils # (Manual) 0.0 K/mm3 (0.0-0.1) 02/20/21 06:39 Metamyelocytes # 0.0 K/mm3 02/20/21 06:39 Myelocytes # 0.1 K/mm3 02/20/21 06:39 Promyelocytes # 0.0 K/mm3 02/20/21 06:39 Blast Cells # 0.0 K/mm3 02/20/21 06:39 WBC Morphology Not Reportable 02/20/21 06:39 Hypersegmented Neuts Not Reportable 02/20/21 06:39 Hyposegmented Neuts Not Reportable 02/20/21 06:39 Hypogranular Neuts Not Reportable 02/20/21 06:39 Smudge Cells Not Reportable 02/20/21 06:39 Toxic Granulation Not Reportable 02/20/21 06:39 Toxic Vacuolation Not Reportable 02/20/21 06:39 Dohle Bodies Not Reportable 02/20/21 06:39 Pelger-Huet Anomaly Not Reportable 02/20/21 06:39 Aba Rods Not Reportable 02/20/21 06:39 Platelet Estimate Consistent w auto 02/20/21 06:39 Clumped Platelets Not Reportable 02/20/21 06:39 Plt Clumps, EDTA Not Reportable 02/20/21 06:39 Large Platelets Not Reportable 02/20/21 06:39 Giant Platelets Not Reportable 02/20/21 06:39 Platelet Satelliting Not Reportable 02/20/21 06:39 Plt Morphology Comment Not Reportable 02/20/21 06:39 RBC Morphology Normal 02/20/21 06:39 Dimorphic RBCs Not Reportable 02/20/21 06:39 Polychromasia Not Reportable 02/20/21 06:39 Hypochromasia Not Reportable 02/20/21 06:39 Poikilocytosis Not Reportable 02/20/21 06:39 Anisocytosis Not Reportable 02/20/21 06:39 Microcytosis Not Reportable 02/20/21 06:39 Macrocytosis Not Reportable 02/20/21 06:39 Spherocytes Not Reportable 02/20/21 06:39 Pappenheimer Bodies Not Reportable 02/20/21 06:39 Sickle Cells Not Reportable 02/20/21 06:39 Target Cells Not Reportable 02/20/21 06:39 Tear Drop Cells Not Reportable 02/20/21 06:39 Ovalocytes Not Reportable 02/20/21 06:39 Helmet Cells Not Reportable 02/20/21 06:39 [place] Bodies Not Reportable 02/20/21 06:39 Tracy Rings Not Reportable 02/20/21 06:39 Santana Cells Not Reportable 02/20/21 06:39 Bite Cells Not Reportable 02/20/21 06:39 Crenated Cell Not Reportable 02/20/21 06:39 Elliptocytes Not Reportable 02/20/21 06:39 Acanthocytes (Spur) Not Reportable 02/20/21 06:39 Rouleaux Not Reportable 02/20/21 06:39 Hemoglobin C Crystals Not Reportable 02/20/21 06:39 Schistocytes Not Reportable 02/20/21 06:39 Malaria parasites Not Reportable 02/20/21 06:39 Alberto Bodies Not Reportable 02/20/21 06:39 Hem Pathologist Commnt No 02/20/21 06:39 PT 14.1 Sec. (12.2-14.9) 02/22/21 15:12 INR 1.03 (0.87-1.13) 02/22/21 15:12 APTT 50.0 Sec. (24.2-36.6) H 02/22/21 15:12 Thrombin Time 17.2 Sec. (15.1-19.6) 02/14/21 20:21 D-Dimer 4275.78 ng/mlDDU (0-234) H 02/20/21 06:39 Heparin Anti-Xa Level 0.32 U.I./ml (0.3-0.7) 02/22/21 06:50 Sodium 141 mmol/L (137-145) 02/28/21 06:13 Potassium 4.1 mmol/L (3.6-5.0) 02/28/21 06:13 Chloride 102.8 mmol/L (98-107) 02/28/21 06:13 Carbon Dioxide 29 mmol/L (22-30) 02/28/21 06:13 Anion Gap 13 mmol/L 02/28/21 06:13 BUN 16 mg/dL (7-17) 02/28/21 06:13 Creatinine 0.7 mg/dL (0.6-1.2) 02/28/21 06:13 Creatinine 0.7 mg/dL (0.6-1.2) 02/28/21 06:13 Estimated GFR > 60 ml/min 02/28/21 06:13 Estimated GFR > 60 ml/min 02/28/21 06:13 BUN/Creatinine Ratio 23 % 02/28/21 06:13 Glucose 166 mg/dL (65-100) H 02/28/21 06:13 POC Glucose 235 mg/dL (70-105) H 02/28/21 11:20 Calcium 9.3 mg/dL (8.4-10.2) 02/28/21 06:13 Phosphorus 3.30 mg/dL (2.5-4.5) 02/22/21 06:50 Magnesium 1.80 mg/dL (1.7-2.3) 02/22/21 06:50 Ferritin 915.5 ng/mL (10.0-200.0) H 02/20/21 06:39 Total Bilirubin 0.30 mg/dL (0.1-1.2) 02/20/21 06:39 AST 36 units/L (5-40) 02/20/21 06:39 ALT 27 units/L (7-56) 02/20/21 06:39 Alkaline Phosphatase 74 units/L (35-129) 02/20/21 06:39 Lactate Dehydrogenase 645 units/L (91-180) H 02/20/21 06:39 Troponin T 0.992 ng/mL (0.00-0.029) H* 02/15/21 03:55 C-Reactive Protein 3.60 mg/dL (0.00-1.30) H 02/20/21 06:39 NT-Pro-B Natriuret Pep 4086 pg/mL (0-900) H 02/15/21 08:38 Total Protein 7.0 g/dL (6.3-8.2) 02/20/21 06:39 Albumin 3.1 g/dL (3.9-5) L 02/20/21 06:39 Albumin/Globulin Ratio 0.8 % 02/20/21 06:39 Triglycerides 292 mg/dL (2-149) H 02/14/21 20:21 Cholesterol 199 mg/dL (50-199) 02/14/21 20:21 LDL Cholesterol Direct 105 mg/dL (50-130) 02/14/21 20: HDL Cholesterol 23 mg/dL (40-59) L 02/14/21 20: Cholesterol/HDL Ratio 8.65 % 02/14/21 20:21 Procalcitonin 0.59 ng/mL (<0.15) 02/15/21 18:20 Coronavirus (PCR) Positive (Negative) A 02/16/21 Unknown Blood Type A POSITIVE 02/14/21 20: Antibody Screen Negative 02/14/21 20:21 Taylor/IV: Voiding Method External Female Catheter Active Medications - Current Medications Current Medications: Generic Name Dose Route Start Last Admin Trade Name Freq PRN Reason Stop Dose Admin Acetaminophen 650 mg 02/16/21 01:00 02/16/21 02:09 Acetaminophen 650 Mg Rect Supp MA 650 mg Q6H PRN Administration Pain, Mild (1-3) Hydrocodone Bitart/Acetaminophen 1 each 02/14/21 21:57 02/26/21 23:25 Hydrocodone/Acetaminophen 5-325 Mg Tab PO 1 each Q6H PRN Administration Pain, Moderate (4-6) Albuterol 2.5 mg 02/14/21 21:54 Albuterol 2.5 Mg/3 Ml Nebu IH Q4HRT PRN Shortness Of Breath Lipase/Protease/Amylase 1 each 02/17/21 12:34 Lipase 10,500/Protease 25,000/Amylase 43,750 (Units) Dr Betts FEEDTUBE PRN PRN For Clogged Feeding Tube Apixaban 2.5 mg 02/22/21 22:00 02/27/21 23:07 Apixaban 2.5 Mg Tab PO 2.5 mg Q12HR KARYN Administration Protocol Aspirin 81 mg 02/16/21 12:00 02/27/21 11:05 Aspirin 81 Mg Tab Chew PO 81 mg QDAY KARYN Administration Atorvastatin Calcium 80 mg 02/15/21 22:00 02/27/21 23:07 Atorvastatin 40 Mg Tab PO 80 mg QHS KARYN Administration Clopidogrel Bisulfate 75 mg 02/15/21 10:00 02/27/21 11:30 Clopidogrel 75 Mg Tab PO 75 mg QDAY KARYN Administration Dexamethasone 10 mg 02/27/21 10:00 02/27/21 14:26 Dexamethasone 4 Mg/Ml Vial IV 03/02/21 10:01 10 mg DAILY KARYN Administration Dextrose 0 ml 02/14/21 21:54 Dextrose 50% In Water (25gm) 50 Ml Syringe IV Q30MIN PRN Hypoglycemia Protocol Docusate Sodium 100 mg 02/14/21 22:04 02/22/21 09:15 Docusate Sodium 100 Mg Cap PO 100 mg DAILY PRN Administration Constip unreliev by MOM/or NPO Famotidine 20 mg 02/21/21 10:00 02/27/21 23:07 Famotidine 20 Mg Tab PO 20 mg BID KARYN Administration Ferrous Sulfate 300 mg 02/21/21 22:00 02/27/21 23:08 Ferrous Sulfate 300 Mg (60mg Elemental Iron) / 5 Ml Oral Liqd FEEDTUBE 300 mg BID KARYN Administration Guaifenesin 200 mg 02/26/21 22:54 02/26/21 23:22 Guaifenesin 100 Mg/5 Ml Oral Liqd PO 200 mg Q4H PRN Administration Cough Hydromorphone HCl 0.5 mg 02/14/21 21:54 02/18/21 22:00 Hydromorphone 1 Mg/1 Ml Inj IV 0.5 mg Q3H PRN Administration Pain , Severe (7-10) Hydrophilic Ointment 1 applic 02/20/21 09:00 Lip Therapy Vaseline TP DIRECT PRN Dry Lips Insulin Glargine 10 units 02/17/21 22:00 02/27/21 23:06 Insulin Glargine 100 Units/Ml SUB-Q 10 units QHS KARYN Administration Insulin Human Lispro 0 unit 02/17/21 22:00 02/27/21 23:08 Insulin Lispro 100 Unit/Ml SUB-Q 6 unit ACHS [facility] Administration Protocol Insulin Human Regular 7 units 02/22/21 16:30 02/27/21 23:10 Insulin Regular, Human 100 Units/1 Ml SUB-Q 7 units [facility] Administration Melatonin 5 mg 02/16/21 17:53 02/26/21 03:47 Melatonin 5 Mg Tab PO 5 mg QHS PRN Administration Sleep Metoprolol Tartrate 50 mg 02/19/21 22:00 02/27/21 23:07 Metoprolol Tartrate 50 Mg Tab PO 50 mg BID KARYN Administration Morphine Sulfate 2 mg 02/14/21 21:54 02/26/21 03:48 Morphine 2 Mg/1 Ml Inj IV 2 mg Q4H PRN Administration Pain, Moderate (4-6) Ondansetron HCl 4 mg 02/14/21 21:54 02/17/21 21:38 Ondansetron 4 Mg/2 Ml Inj IV 4 mg Q8H PRN Administration Nausea And Vomiting Simple Syrup 15 ml 02/17/21 12:34 Simple Syrup 15 Ml FEEDTUBE PRN PRN Hypoglycemia Simple Syrup 30 ml 02/17/21 12:34 Simple Syrup 15 Ml FEEDTUBE PRN PRN Hypoglycemia Sodium Bicarbonate 325 mg 02/17/21 12:34 Sodium Bicarbonate 325 Mg Tab FEEDTUBE PRN PRN For Clogged Feeding Tube Sodium Chloride 10 ml 02/14/21 22:00 02/27/21 23:11 Sodium Chloride 0.9% 10 Ml Flush Syringe IV 10 ml BID KARYN Administration Sodium Chloride 10 ml 02/14/21 21:54 Sodium Chloride 0.9% 10 Ml Flush Syringe IV PRN PRN LINE FLUSH Nutrition/Malnutrition Assess - Dietary Evaluation Nutrition/Malnutrition Findings: Nutrition Notes Start: 02/15/21 12:03 Freq: Status: Active Protocol: Document 02/27/21 18:14 GB (Rec: 02/27/21 18:22 GB [id number]) Nutrition Notes Initial or Follow up Reassessment Current Diagnosis Diabetes,Hypertension, Respiratory Failure,Stroke Other Pertinent Diagnosis hyperglycemia, STEMI Current Diet Pureed w/dietary supplements BID Labs/Tests 02/25: BUN 18 Pertinent Medications ferrous sulfate, NaCl/Hep, NaCl, remdesivir Height 5 ft 4 in Weight 91.6 kg [place] Body Weight (kg) 54.54 BMI 34.7 Weight change and time frame 02/14: 104.3 kg 02/26: 91.6 kg change of -12.7kg for -12% loss r/t Respiratory failure complications Weight Status Obese Subjective/Other Information Diet texture Pureed. Per chart: po intake of meals average 50-100%. Adding glucerna BID for additional calories/protein while po intake recovers. Percent of energy/protein needs met: PO intake of meals and supplement 50% or greater will meet 75% or greater of estimated energy needs. Burn Absent Trauma Absent GI Symptoms None Difficulty In Swallowing Food Allergy No Current % PO Good (75-100%) Minimum of two criteria No #2 Nutrition Diagnosis Inadequate energy intake Comments: 02/27: Diet texture Pureed, supplement beverages BID, PO intake 50-100% Etiology DM, collapse As Evidenced by Signs and Symptoms Recent advancement to PO intake with mechanically altered texture diet, NG d/c , need for nutritional supplement beverage to meet estimated energy needs. Diagnosis Progress(for reassessment Resolved documentation) #1 Nutrition Diagnosis Other: (Specify in comment below) Comments: Comprimised PO intake, dependency for enteral feed to meet nutrition needs Etiology DM, collapse, As Evidenced by Signs and Symptoms not able to eat PO at this time, MD order for TF Diagnosis Progress(for reassessment Resolved documentation) Is patient on ventilator? No Is Patient Ambulatory and/or Out of Bed Yes [facility] [ [id number] [id number]] Kcal/Kg value to use for calculation 17 Approximate Energy Requirements Using 1557 kcal/Kg Calculation Used for Recommendations Kcal/kg Additional Notes Protein: 0.7-1 g/kg @ 104k-104g Fluids: 1 ml/kcal or per MD Nutrition Intervention Change Diet Order: Continue with current diet advancing texture per [employer] Nutrition Support: n/a Add Supplement/Snack (indicate name/kcal glucerna BID /protein ) Provides kCal: 440 Provides Protein (gm) 20 Goal #1 PO intake of meals to improve to 50% or greater during LOS 02/27: met, continues Goal #2 weight to maintain within -3% current weight for LOS 02/27: weight loss of -12% r/t respiratory failure (covid) complications Goal #3 PO intake of nutritional supplement beverage to be 50% or greater BID daily during LOS Follow-Up By: 03/06/21 Additional Comments f/u: po intake, weight
[2021-02-28] MEDS: ASPIRIN 81 MG TAB CHEW PO SCH (13:52)
[2021-02-28] MEDS: ONDANSETRON 4 MG/2 ML INJ IV PRN (20:14)
[2021-02-28] MEDS: HYDROmorphone 1 MG/1 ML INJ IV PRN (20:15)
[2021-02-28] MEDS: INSULIN GLARGINE 100 UNITS/ML SUB-Q SCH (22:48)
[2021-03-01] MEDS: ASPIRIN 81 MG TAB CHEW PO SCH (09:42)
[2021-03-01] MEDS: CLOPIDOGREL 75 MG TAB PO SCH (09:42)
[2021-03-01] MEDS: FAMOTIDINE 20 MG TAB PO SCH ×2 (09:42→21:43)
[2021-03-01] MEDS: INSULIN REGULAR, HUMAN 100 UNITS/1 ML SUB-Q SCH ×4 (09:43→21:43)
[2021-03-01] MEDS: INSULIN LISPRO 100 UNIT/ML SUB-Q SCH ×4 (09:43→21:44)
[2021-03-01] MEDS: APIXABAN 2.5 MG TAB PO SCH ×2 (09:43→21:43)
[2021-03-01] MEDS: dexAMETHasone 4 MG/ML VIAL IV SCH (09:43)
[2021-03-01] MEDS: FERROUS SULFATE 300 MG (60MG Elemental Iron) / 5 mL ORAL LIQD FEEDTUBE SCH ×2 (10:24→21:43)
[2021-03-01] MEDS: METOPROLOL TARTRATE 50 MG TAB PO SCH ×2 (10:25→21:43)
--- NOTE | 2021-03-01 11:43 | Progress Note ---
Assessment and Plan Acute inferior AL s/p PCI of the RCAf or acute right coronary embolic occlusion in the setting of acute Covid viral pneumonia. RV thrombus Echocardiogram showed a mobile mass in the right ventricle, suggestive of venous thromboembolism in transition Acute CVA COVID-19 pneumonia Respiratory failure Diabetes Hypertension Continue triple therapy with plavix, aspirin, and low dose eliquis for treatment of venous thromboembolism in addition to her occlusive coronary thrombus requiring drug-eluting stent placement. Otherwise, conservative cardiac management. Subjective Date of service: 03/01/21 Principal diagnosis: Covid-19 Interval history: Patient has no complaints. No distress noted. Objective Vital Signs Temp Pulse Resp BP Pulse Ox 03/01/21 08:58 94 03/01/21 04:57 98.2 F 65 18 148/99 93 03/01/21 04:00 80 03/01/21 00:00 80 02/28/21 22:00 96 02/28/21 21:43 98.2 F 80 18 122/77 100 02/28/21 20:58 95 02/28/21 20:45 18 02/28/21 20:00 64 02/28/21 15:42 98.6 F 64 20 105/78 93 02/28/21 15:00 98 - Physical Examination Narrative exam: Deferred due to isolation protocol. General: No Apparent Distress Cardiac: Positive: Reg Rate and Rhythm Neuro: Positive: Other (Left hemiparesis)
--- NOTE | 2021-03-01 12:50 | Cardiac Catherization Report ---
DATE OF PROCEDURE: 02/14/2021 CORONARY ANGIOGRAM AND PERCUTANEOUS INTERVENTION REPORT DATE OF PROCEDURE: 02/14/2021 PROCEDURES PERFORMED: 1. Selective left and right coronary angiogram. 2. Left ventriculogram. 3. Successful percutaneous intervention of the right coronary artery. GROCERY SUPERVISOR: Jensen Shahid MD INDICATION: Acute inferior ST-elevation OH. PROCEDURE IN DETAIL: 1. The patient was prepped and draped in a sterile fashion after informed consent. 2. The right groin was anesthetized using local Lidocaine infiltration. 3. The right radial artery was entered using the Seldinger technique, followed by the placement of a 6-Israeli sheath. 4. Selective left and right coronary angiography was performed using 6-Israeli Louise catheters. Angiograms were done in multiple projections. 5. Selective left ventricular angiography was done using a 6-Israeli pigtail catheter. Left ventricular angiography was performed in the right anterior oblique projection. 6. The catheters were withdrawn, the sheath removed, and hemostasis was achieved. 7. The patient was transferred to the post cardiac catheterization unit in stable condition. There were no complications, equipment malfunction, or technical difficulties. FINDINGS: HEMODYNAMICS: 1. AO 130/92, LV 130/18, LVEDP was 18. 2. Left ventriculogram done in 30 degrees HERNÁNDEZ projection shows normal LV systolic function, EF greater than 55%. Study was suboptimal to evaluate for wall motion abnormality. ANGIOGRAM DETAILS: 1. Left main is angiographically normal. 2. LAD is a large caliber vessel, appears angiographically normal. 3. Circumflex is a large caliber vessel and appears angiographically normal. 4. The RCA is a large caliber dominant vessel. There is thrombus noted in the mid and mid distal right coronary artery with around 60-70% stenosis. IMPRESSION: 1. 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 2. Grossly normal LV function. PLAN: Proceed with PCI of the right coronary artery. 1. Intravenous heparin was used to maintain therapeutic ACT. An AR1 guide catheter was used to engage the right coronary artery. A BMW wire was used to cross the thrombus in the distal right coronary artery. After initial predilatation, we tried to advance an Dixie cardiac catheter for mechanical thrombectomy; however, we were unable to cross secondary to significant tortuosity. We decided to proceed with PCI. A 3.5 x 18 mm Resolute drug-eluting stent was deployed across the stenosis. This was then postdilated with a 4.0 balloon with excellent results. No residual stenosis or thrombus noted. The patient tolerated the procedure very well. Wire and the guide were removed. Plavix 600 mg was given. Sheath was removed and a TR band placed using the standard protocol. 2. Culprit lesion, mid and mid distal right coronary artery. 3. MELISSA flow 2. 4. Preprocedure stenosis 60-70%. 5. Postprocedure stenosis 0%. 6. Postprocedure MELISSA flow is 3. 7. Stent deployed is 3.5 x 18-mm Resolute drug-eluting stent, postdilated with a 4.0 balloon. IMPRESSION: Status post successful percutaneous intervention of the thrombotic occlusion of the right coronary artery in the setting of ST-elevation myocardial infarction with the deployment of drug-eluting stent. PLAN: 1. Aspirin for life. 2. Plavix for 1 year, preferably more. 3. Hematological workup for hypercoagulable state given the thrombotic right coronary artery and also acute thrombotic cerebrovascular accident. TID: [id number] RECEIPT: [id number] IVON/ELIGIO/RYLEE
--- NOTE | 2021-03-01 13:19 | Progress Note ---
Assessment and Plan Assessment and plan: 55-year-old female with PmHx of HTN, uterine fibroids and ex-smoker admitted for acute right MCA CVA and STEMI s/p PCI in RCA, now with acute respiratory distress requiring continuous Bipap. Acute right MCA CVA - 02/13/21- CT head shows microvascular angiopathy, decreased attenuation along the posterior right frontal subcortical region, no acute intracranial hemorrhage - 02/13/2021- CTA head shows decreased attenuation along the posterior right frontal lobe, no CT evidence of significant stenosis involving proximal cerebral branches particularly the proximal right MCA - 02/13/21- CTA neck shows mild atherosclerotic calcification involving the proximal internal carotid arteries bilaterally without significant stenosis - MRI brain and MRA brain and neck reveals several scattered foci are recent infarct in both the cerebellum and cerebral hemispheres. No hemorrhage or ad verse mass-effect. Findings likely indicate embolic phenomenon. - Not candidate for any intervention- out of the time window - PT/OT/ST eval - Neurology consulted, appreciate recommendations STEMI s/p PCI in RCA, h/o HTN Rt. Ventricle Thrombus - 02/13/2021 Echo: EF 55%, mild concentric left ventricular Hypertrophy,suspected thrombus in right ventricle - Heparin protocol initiated, ok to transition to warfarin or NOAC on d/c - On Statin, beta-silas, Plavix and aspirin - 02/16 X1 dose rectal ASA- due to NPO status - Strict I&O Acute hypoxic respiratory secondary to COVID COVID-19 Pneumonia Dysphagia - Speech eval completed, pass swallow - Pureed diet with thin liquid order Acute kidney injury - improving - Initial cr. 1.5. Sepsis 2/2 bilateral PNA, COVID PNA Anemia - On heparin gtt per protocol, ASA and plavix - Monitor for s/s of bleeding Hyperglycemia - Lantus increased to 10 units SUBQ Hospital Course to date: 02/16/21- Patient AAOX4, with slurred speech and Lt. sided weakness. MRI/MRA brain pending. Remains on continuous Bipap, failed optiflow trial overnight. Bilateral infiltrate noted on today CXR additional lasix was adminstered to optimize Respiratory status, However was D/C due to marginal BP concern for Hypoperfusion. Will reassess in the Am. Plan to wean off Bipap as tolerated. Patient has been NPO due to continuous Bipap. When patient is off bipap nurse to complete bedside swallow screen, if fail will place NGT so pateint can received PO meds. Low grade temp today, TMAX 101.2 in last 24hrs, Bcult pending, on IV abx, ceftriaxone and azithromycin. COVID swab result pending, ID on the case rec to start dexamethasone 6 mg IV/p.o. daily for 10 days. 02/17/21- COVID PCR can back possible, patient was already on Rocephin and azithromaci, added Remdesevir per protocol, and IV decadron was initiated. Patient was wean to heated high flow, currently on 70% FiO2 and 40L. Wean O2 supplement as tolerated for a SPO2b goal above 88%. Persistent hyperglycemia, lantus increased to 10 units. Speech eval completed, patient pass swallow, order placed for pureed diet with thin liquid. Will continue to monitor, Heparing gtt per protocol, Am labs ordered. 02/18/21-blood sugars this morning over 300. Ordered 10 units of IV insulin once. Added 5 units scheduled insulin in addition to sliding scale insulin. Diet change to diabetic diet. 02/19/21: Transfer to floor. NG tube d/c. 02/20/21: Will get speech therapy to re-evaluate patient to see if patient can be escalated from pureed diet. Cardiology recommendations noted, BB is increased. Continue supportive management for covid 19 pneumonia. HFNC currently at 35 l/min/fio2=60%. Ok with sats > 88%. Attempted to call Durga but voicemail was to another person in chart. Will attempt to find another number to update . 02/21/2021. Patient currently with 35 L of oxygen with an FiO2 of 70%. Continue statin therapy, beta blockers, and DAPT with plavix and aspirin per cardiology recommendation. Continue intravenous heparin, ultimately will be transitioned to long-term warfarin therapy or a NOAC. 02/22/2021. Patient's oxygen requirement has been decreased to 30 L/min via HFNC with FiO2 50%. Continue per ID and pulmonary recommendations. Patient received Actemra 02/17/2021. Complete remdesivir x5 days. Complete dexamethasone IV for 10 days. Cardiology also recommends continued statin therapy, beta-blockers and DAPT with Plavix and aspirin. Continue IV heparin and transition to long-term warfarin or NOAC per cardiology 02/23/2021. Chest x-ray from yesterday is unchanged. Patient currently on high flow nasal cannula 30 L/min with FiO2 35%. Continue per ID and pulmonary recommendations. Patient received Actemra 02/17/2021. Complete remdesivir x5 days. Complete dexamethasone IV for 10 days. Cardiology also recommends continued statin therapy, beta-blockers and DAPT with Plavix and aspirin. Continue IV heparin and transition to long-term warfarin or NOAC per cardiology 02/24/2021. Patient remains on high flow nasal cannula 30 L O2 with FiO2 35%. Patient will complete dexamethasone on 02/26/2021. Patient is s/p remdesivir and Actemra. Continue prone positioning as able. Continue statin therapy, beta- blockers and DAPT with Plavix and aspirin. Continue IV heparin and transition to long-term warfarin or NOAC per cardiology 02/25/2021. Patient on high flow nasal cannula with 15 L and FiO2 of 30%. C ontinue dexamethasone until tomorrow. Patient is s/p remdesivir and Actemra. Continue prone positioning as able. Continue statin therapy, beta-blockers and DAPT with Plavix and aspirin. Continue IV heparin and transition to long-term warfarin or NOAC per cardiology 02/26/2021. Patient on high flow nasal cannula with 15 L and FiO2 of 30%. Continue dexamethasone for total of 14 days per pulmonary recommendations. Patient is s/p remdesivir and Actemra. Continue prone positioning as able. Co ntinue statin therapy, beta-blockers and DAPT with Plavix and aspirin. Continue IV heparin and transition to long-term warfarin or NOAC per cardiology 02/27/2021. Patient on high flow nasal cannula with 15 L and FiO2 of 25%. Continue dexamethasone for total of 14 days per pulmonary recommendations. Resume dexamethasone 10 mg IV daily for 4 more days. Patient is s/p remdesivir and Actemra. Continue prone positioning as able. Continue statin therapy, beta-blockers and DAPT with Plavix and aspirin. Cardiology initiated anticoagulation with Eliquis. 02/28/21 Patient with Covid-19 She is on Oxygen at 11 l/min, down from 15 l/min yesterday. 03/01/21 Patient with Covid-19 with acute respiratory failure. She is on Oxygen at 4 l/min, down from 11 l/min yesterday. She has been on high flow oxygen previously. Hopefully dc home in few days. To check ambulatory pulse ox prior to discharge. History Interval history: Shortness of breath Cough Hospitalist Physical - Physical exam Narrative exam: Gen: Not in acute distress, lying in bed, On Oxygen by NC HEENT: Normocephalic, atraumatic Neck: supple Lungs: Bilateral rales, no wheeze Heart: S1 and S2 reg, no murmurs, rubs or gallop Abd:soft, non-tender, non distended, normal bowel sounds Ext: No edema, clubbing or cyanosis Neuro: Awake, alert, oriented X 3, moves all extremities - Constitutional Vitals: Temp Pulse Resp BP Pulse Ox 98.2 F 65 18 148/99 94 03/01/21 04:57 03/01/21 04:57 03/01/21 04:57 03/01/21 04:57 03/01/21 08:58 General appearance: Present: obese HEART Score - HEART Score Troponin: Troponin T 0.992 ng/mL (0.00-0.029) H* 02/15/21 03:55 Results - Labs CBC & Chem 7: 02/28/21 06:13 02/28/21 06:13 Labs: Laboratory Last Values WBC 3.6 K/mm3 (4.5-11.0) L 02/28/21 06:13 RBC 5.14 M/mm3 (3.65-5.03) H 02/28/21 06:13 Hgb 13.2 gm/dl (10.1-14.3) 02/28/21 06:13 Hct 40.2 % (30.3-42.9) 02/28/21 06:13 MCV 78 fl (79-97) L 02/28/21 06:13 MCH 26 pg (28-32) L 02/28/21 06:13 MCHC 33 % (30-34) 02/28/21 06:13 RDW 16.0 % (13.2-15.2) H 02/28/21 06:13 Plt Count 165 K/mm3 (140-440) 02/28/21 06:13 Lymph % (Auto) 23.7 % (13.4-35.0) 02/28/21 06:13 [place]oard % (Auto) 10.3 % (0.0-7.3) H 02/28/21 06:13 Eos % (Auto) 13.7 % (0.0-4.3) H 02/28/21 06:13 Baso % (Auto) 0.9 % (0.0-1.8) 02/28/21 06:13 Lymph # (Auto) 0.9 K/mm3 (1.2-5.4) L 02/28/21 06:13 Foard # (Auto) 0.4 K/mm3 (0.0-0.8) 02/28/21 06:13 Eos # (Auto) 0.5 K/mm3 (0.0-0.4) H 02/28/21 06:13 Baso # (Auto) 0.0 K/mm3 (0.0-0.1) 02/28/21 06:13 Add Manual Diff Complete 02/20/21 06:39 Total Counted 100 02/20/21 06:39 Seg Neutrophils % 51.4 % (40.0-70.0) 02/28/21 06:13 Seg Neuts % (Manual) 88.0 % (40.0-70.0) H 02/20/21 06:39 Lymphocytes % (Manual) 4.0 % (13.4-35.0) L 02/20/21 06:39 Reactive Lymphs % (Man) 2.0 % 02/20/21 06:39 Monocytes % (Manual) 3.0 % (0.0-7.3) 02/20/21 06:39 Eosinophils % (Manual) 1.0 % (0.0-4.3) 02/20/21 06:39 Myelocytes % 2.0 % 02/20/21 06:39 Nucleated RBC % Not Reportable 02/20/21 06:39 Seg Neutrophils # 1.9 K/mm3 (1.8-7.7) 02/28/21 06:13 Seg Neutrophils # Man 5.5 K/mm3 (1.8-7.7) 02/20/21 06:39 Band Neutrophils # 0.0 K/mm3 02/20/21 06:39 Lymphocytes # (Manual) 0.2 K/mm3 (1.2-5.4) L 02/20/21 06:39 Abs React Lymphs (Man) 0.1 K/mm3 02/20/21 06:39 Monocytes # (Manual) 0.2 K/mm3 (0.0-0.8) 02/20/21 06:39 Eosinophils # (Manual) 0.1 K/mm3 (0.0-0.4) 02/20/21 06:39 Basophils # (Manual) 0.0 K/mm3 (0.0-0.1) 02/20/21 06:39 Metamyelocytes # 0.0 K/mm3 02/20/21 06:39 Myelocytes # 0.1 K/mm3 02/20/21 06:39 Promyelocytes # 0.0 K/mm3 02/20/21 06:39 Blast Cells # 0.0 K/mm3 02/20/21 06:39 WBC Morphology Not Reportable 02/20/21 06:39 Hypersegmented Neuts Not Reportable 02/20/21 06:39 Hyposegmented Neuts Not Reportable 02/20/21 06:39 Hypogranular Neuts Not Reportable 02/20/21 06:39 Smudge Cells Not Reportable 02/20/21 06:39 Toxic Granulation Not Reportable 02/20/21 06:39 Toxic Vacuolation Not Reportable 02/20/21 06:39 Dohle Bodies Not Reportable 02/20/21 06:39 Pelger-Huet Anomaly Not Reportable 02/20/21 06:39 Aba Rods Not Reportable 02/20/21 06:39 Platelet Estimate Consistent w auto 02/20/21 06:39 Clumped Platelets Not Reportable 02/20/21 06:39 Plt Clumps, EDTA Not Reportable 02/20/21 06:39 Large Platelets Not Reportable 02/20/21 06:39 Giant Platelets Not Reportable 02/20/21 06:39 Platelet Satelliting Not Reportable 02/20/21 06:39 Plt Morphology Comment Not Reportable 02/20/21 06:39 RBC Morphology Normal 02/20/21 06:39 Dimorphic RBCs Not Reportable 02/20/21 06:39 Polychromasia Not Reportable 02/20/21 06:39 Hypochromasia Not Reportable 02/20/21 06:39 Poikilocytosis Not Reportable 02/20/21 06:39 Anisocytosis Not Reportable 02/20/21 06:39 Microcytosis Not Reportable 02/20/21 06:39 Macrocytosis Not Reportable 02/20/21 06:39 Spherocytes Not Reportable 02/20/21 06:39 Pappenheimer Bodies Not Reportable 02/20/21 06:39 Sickle Cells Not Reportable 02/20/21 06:39 Target Cells Not Reportable 02/20/21 06:39 Tear Drop Cells Not Reportable 02/20/21 06:39 Ovalocytes Not Reportable 02/20/21 06:39 Helmet Cells Not Reportable 02/20/21 06:39 [place] Bodies Not Reportable 02/20/21 06:39 [place] Rings Not Reportable 02/20/21 06:39 [place] Cells Not Reportable 02/20/21 06:39 Bite Cells Not Reportable 02/20/21 06:39 Crenated Cell Not Reportable 02/20/21 06:39 Elliptocytes Not Reportable 02/20/21 06:39 Acanthocytes (Spur) Not Reportable 02/20/21 06:39 Rouleaux Not Reportable 02/20/21 06:39 Hemoglobin C Crystals Not Reportable 02/20/21 06:39 Schistocytes Not Reportable 02/20/21 06:39 Malaria parasites Not Reportable 02/20/21 06:39 Alberto Bodies Not Reportable 02/20/21 06:39 Hem Pathologist Commnt No 02/20/21 06:39 PT 14.1 Sec. (12.2-14.9) 02/22/21 15:12 INR 1.03 (0.87-1.13) 02/22/21 15:12 APTT 50.0 Sec. (24.2-36.6) H 02/22/21 15:12 Thrombin Time 17.2 Sec. (15.1-19.6) 02/14/21 20:21 D-Dimer 4275.78 ng/mlDDU (0-234) H 02/20/21 06:39 Heparin Anti-Xa Level 0.32 U.I./ml (0.3-0.7) 02/22/21 06:50 Sodium 141 mmol/L (137-145) 02/28/21 06:13 Potassium 4.1 mmol/L (3.6-5.0) 02/28/21 06:13 Chloride 102.8 mmol/L (98-107) 02/28/21 06:13 Carbon Dioxide 29 mmol/L (22-30) 02/28/21 06:13 Anion Gap 13 mmol/L 02/28/21 06:13 BUN 16 mg/dL (7-17) 02/28/21 06:13 Creatinine 0.7 mg/dL (0.6-1.2) 02/28/21 06:13 Creatinine 0.7 mg/dL (0.6-1.2) 02/28/21 06:13 Estimated GFR > 60 ml/min 02/28/21 06:13 Estimated GFR > 60 ml/min 02/28/21 06:13 BUN/Creatinine Ratio 23 % 02/28/21 06:13 Glucose 166 mg/dL (65-100) H 02/28/21 06:13 POC Glucose 204 mg/dL (70-105) H 03/01/21 12:28 Calcium 9.3 mg/dL (8.4-10.2) 02/28/21 06:13 Phosphorus 3.30 mg/dL (2.5-4.5) 02/22/21 06:50 Magnesium 1.80 mg/dL (1.7-2.3) 02/22/21 06:50 Ferritin 915.5 ng/mL (10.0-200.0) H 02/20/21 06:39 Total Bilirubin 0.30 mg/dL (0.1-1.2) 02/20/21 06:39 AST 36 units/L (5-40) 02/20/21 06:39 ALT 27 units/L (7-56) 02/20/21 06:39 Alkaline Phosphatase 74 units/L (35-129) 02/20/21 06:39 Lactate Dehydrogenase 645 units/L (91-180) H 02/20/21 06:39 Troponin T 0.992 ng/mL (0.00-0.029) H* 02/15/21 03:55 C-Reactive Protein 3.60 mg/dL (0.00-1.30) H 02/20/21 06:39 NT-Pro-B Natriuret Pep 4086 pg/mL (0-900) H 02/15/21 08:38 Total Protein 7.0 g/dL (6.3-8.2) 02/20/21 06:39 Albumin 3.1 g/dL (3.9-5) L 02/20/21 06:39 Albumin/Globulin Ratio 0.8 % 02/20/21 06:39 Triglycerides 292 mg/dL (2-149) H 02/14/21 20:21 Cholesterol 199 mg/dL (50-199) 02/14/21 20:21 LDL Cholesterol Direct 105 mg/dL (50-130) 02/14/21 20:21 HDL Cholesterol 23 mg/dL (40-59) L 02/14/21 20:21 Cholesterol/HDL Ratio 8.65 % 02/14/21 20:21 Procalcitonin 0.59 ng/mL (<0.15) 02/15/21 18:20 Coronavirus (PCR) Positive (Negative) A 02/16/21 Unknown Blood Type A POSITIVE 02/14/21 20: Antibody Screen Negative 02/14/21 20:21 Taylor/IV: Voiding Method External Female Catheter Active Medications - Current Medications Current Medications: Generic Name Dose Route Start Last Admin Trade Name Freq PRN Reason Stop Dose Admin Acetaminophen 650 mg 02/16/21 01:00 02/16/21 02:09 Acetaminophen 650 Mg Rect Supp RI 650 mg Q6H PRN Administration Pain, Mild (1-3) Hydrocodone Bitart/Acetaminophen 1 each 02/14/21 21:57 02/26/21 23:25 Hydrocodone/Acetaminophen 5-325 Mg Tab PO 1 each Q6H PRN Administration Pain, Moderate (4-6) Albuterol 2.5 mg 02/14/21 21:54 Albuterol 2.5 Mg/3 Ml Nebu IH Q4HRT PRN Shortness Of Breath Lipase/Protease/Amylase 1 each 02/17/21 12:34 Lipase 10,500/Protease 25,000/Amylase 43,750 (Units) Dr Betts FEEDTUBE PRN PRN For Clogged Feeding Tube Apixaban 2.5 mg 02/22/21 22:00 03/01/21 09:43 Apixaban 2.5 Mg Tab PO 2.5 mg Q12HR KARYN Administration Protocol Aspirin 81 mg 02/16/21 12:00 03/01/21 09:42 Aspirin 81 Mg Tab Chew PO 81 mg QDAY KARYN Administration Atorvastatin Calcium 80 mg 02/15/21 22:00 02/28/21 22:47 Atorvastatin 40 Mg Tab PO 80 mg QHS KARYN Administration Clopidogrel Bisulfate 75 mg 02/15/21 10:00 03/01/21 09:42 Clopidogrel 75 Mg Tab PO 75 mg QDAY KARYN Administration Dexamethasone 10 mg 02/27/21 10:00 03/01/21 09:43 Dexamethasone 4 Mg/Ml Vial IV 03/02/21 10:01 10 mg DAILY KARYN Administration Dextrose 0 ml 02/14/21 21:54 Dextrose 50% In Water (25gm) 50 Ml Syringe IV Q30MIN PRN Hypoglycemia Protocol Docusate Sodium 100 mg 02/14/21 22:04 02/22/21 09:15 Docusate Sodium 100 Mg Cap PO 100 mg DAILY PRN Administration Constip unreliev by MOM/or NPO Famotidine 20 mg 02/21/21 10:00 03/01/21 09:42 Famotidine 20 Mg Tab PO 20 mg BID KRAYN Administration Ferrous Sulfate 300 mg 02/21/21 22:00 03/01/21 10:24 Ferrous Sulfate 300 Mg (60mg Elemental Iron) / 5 Ml Oral Liqd FEEDTUBE 300 mg BID KARYN Administration Guaifenesin 200 mg 02/26/21 22:54 02/26/21 23:22 Guaifenesin 100 Mg/5 Ml Oral Liqd PO 200 mg Q4H PRN Administration Cough Hydromorphone HCl 0.5 mg 02/14/21 21:54 02/28/21 20:15 Hydromorphone 1 Mg/1 Ml Inj IV 0.5 mg Q3H PRN Administration Pain , Severe (7-10) Hydrophilic Ointment 1 applic 02/20/21 09:00 Lip Therapy Vaseline TP DIRECT PRN Dry Lips Insulin Glargine 10 units 02/17/21 22:00 02/28/21 22:48 Insulin Glargine 100 Units/Ml SUB-Q 10 units QHS [facility] Administration Insulin Human Lispro 0 unit 02/17/21 22:00 03/01/21 13:08 Insulin Lispro 100 Unit/Ml SUB-Q 4 unit ACHS [facility] Administration Protocol Insulin Human Regular 7 units 02/22/21 16:30 03/01/21 13:09 Insulin Regular, Human 100 Units/1 Ml SUB-Q [address] [facility] Administration Melatonin 5 mg 02/16/21 17:53 02/26/21 03:47 Melatonin 5 Mg Tab PO 5 mg QHS PRN Administration Sleep Metoprolol Tartrate 50 mg 02/19/21 22:00 03/01/21 10:25 Metoprolol Tartrate 50 Mg Tab PO 50 mg BID KARYN Administration Morphine Sulfate 2 mg 02/14/21 21:54 02/26/21 03:48 Morphine 2 Mg/1 Ml Inj IV 2 mg Q4H PRN Administration Pain, Moderate (4-6) Ondansetron HCl 4 mg 02/14/21 21:54 02/28/21 20:14 Ondansetron 4 Mg/2 Ml Inj IV 4 mg Q8H PRN Administration Nausea And Vomiting Simple Syrup 15 ml 02/17/21 12:34 Simple Syrup 15 Ml FEEDTUBE PRN PRN Hypoglycemia Simple Syrup 30 ml 02/17/21 12:34 Simple Syrup 15 Ml FEEDTUBE PRN PRN Hypoglycemia Sodium Bicarbonate 325 mg 02/17/21 12:34 Sodium Bicarbonate 325 Mg Tab FEEDTUBE PRN PRN For Clogged Feeding Tube Sodium Chloride 10 ml 02/14/21 22:00 03/01/21 09:44 Sodium Chloride 0.9% 10 Ml Flush Syringe IV 10 ml BID KARYN Administration Sodium Chloride 10 ml 02/14/21 21:54 Sodium Chloride 0.9% 10 Ml Flush Syringe IV PRN PRN LINE FLUSH Nutrition/Malnutrition Assess - Dietary Evaluation Nutrition/Malnutrition Findings: Nutrition Notes Start: 02/15/21 12:03 Freq: Status: Active Protocol: Document 02/27/21 18:14 GB (Rec: 02/27/21 18:22 GB [email or web address]) Nutrition Notes Initial or Follow up Reassessment Current Diagnosis Diabetes,Hypertension, Respiratory Failure,Stroke Other Pertinent Diagnosis hyperglycemia, STEMI Current Diet Pureed w/dietary supplements BID Labs/Tests 02/25: BUN 18 Pertinent Medications ferrous sulfate, NaCl/Hep, NaCl, remdesivir Height 5 ft 4 in Weight 91.6 kg [place] Body Weight (kg) 54.54 BMI 34.7 Weight change and time frame 02/14: 104.3 kg 02/26: 91.6 kg change of -12.7kg for -12% loss r/t Respiratory failure complications Weight Status Obese Subjective/Other Information Diet texture Pureed. Per chart: po intake of meals average 50-100%. Adding glucerna BID for additional calories/protein while po intake recovers. Percent of energy/protein needs met: PO intake of meals and supplement 50% or greater will meet 75% or greater of estimated energy needs. Burn Absent Trauma Absent GI Symptoms None Difficulty In Swallowing Food Allergy No Current % PO Good (75-100%) Minimum of two criteria No #2 Nutrition Diagnosis Inadequate energy intake Comments: 02/27: Diet texture Pureed, supplement beverages BID, PO intake 50-100% Etiology DM, collapse As Evidenced by Signs and Symptoms Recent advancement to PO intake with mechanically altered texture diet, NG d/c , need for nutritional supplement beverage to meet estimated energy needs. Diagnosis Progress(for reassessment Resolved documentation) #1 Nutrition Diagnosis Other: (Specify in comment below) Comments: Comprimised PO intake, dependency for enteral feed to meet nutrition needs Etiology DM, collapse, As Evidenced by Signs and Symptoms not able to eat PO at this time, MD order for TF Diagnosis Progress(for reassessment Resolved documentation) Is patient on ventilator? No Is Patient Ambulatory and/or Out of Bed Yes REE-([facility]-ambulatory/OOB) [ 1938.300 [id number]] Kcal/Kg value to use for calculation 17 Approximate Energy Requirements Using 1557 kcal/Kg Calculation Used for Recommendations Kcal/kg Additional Notes Protein: 0.7-1 g/kg @ 104k-104g Fluids: 1 ml/kcal or per MD Nutrition Intervention Change Diet Order: Continue with current diet advancing texture per [employer] Nutrition Support: n/a Add Supplement/Snack (indicate name/kcal glucerna BID /protein ) Provides kCal: 440 Provides Protein (gm) 20 Goal #1 PO intake of meals to improve to 50% or greater during LOS 02/27: met, continues Goal #2 weight to maintain within -3% current weight for LOS 02/27: weight loss of -12% r/t respiratory failure (covid) complications Goal #3 PO intake of nutritional supplement beverage to be 50% or greater BID daily during LOS Follow-Up By: 03/06/21 Additional Comments f/u: po intake, weight
--- NOTE | 2021-03-01 14:25 | Progress Note ---
Assessment and Plan 55 y/o female with STEMI and acute respiratory failure 03/02/21: Down to 2 liters. Improving. Should consider walk test and discharge vs rehab. 1. Pulm- CXR appears to be more consistent with pulmonary edema and BNP is 4k. Stopped IVF's. Attempted to take of bipap but desats on cannula. Awake and tachypnic. Will give lasix 20mg IV x1 now to see if this helps with oxygen requirement. DO not feel this is infection. 2. Cards-STemi, goal directed therapy and follow up echo, done but not read yet. 3. Endo-elevated blood sugar likely related to acute mI, although patient could have underlying disease given age and weight, suggest checking A1C. 4. Guarded prognosis Subjective Date of service: 03/01/21 Principal diagnosis: Covid-19 Interval history: no acute events. down to 2 liters. Objective Vital Signs - 12hr 03/01/21 03/01/21 03/01/21 04:00 04:57 08:58 Temperature 98.2 F Pulse Rate 80 65 Respiratory 18 Rate Blood Pressure 148/99 O2 Sat by Pulse 93 94 Oximetry 03/01/21 03/01/21 03/01/21 10:00 12:30 13:49 Temperature 98.4 F Pulse Rate 63 Respiratory 24 Rate Blood Pressure 134/84 O2 Sat by Pulse 100 100 98 Oximetry Gastrointestinal: normoactive bowel sounds Integumentary: normal CBC and BMP: 02/28/21 06:13 02/28/21 06:13 ABG, PT/INR, D-dimer: PT/INR, D-dimer PT 14.1 Sec. (12.2-14.9) 02/22/21 15:12 INR 1.03 (0.87-1.13) 02/22/21 15:12 D-Dimer 4275.78 ng/mlDDU (0-234) H 02/20/21 06:39 Abnormal lab findings: Abnormal Labs 02/14/21 02/14/21 02/14/21 20:21 20:21 20:21 WBC 15.6 H RBC 5.55 H Hgb Hct 43.3 H MCV 78 L MCH 26 L MCHC RDW 16.3 H Lymph % (Auto) Antelope % (Auto) Eos % (Auto) Lymph # (Auto) Eos # (Auto) Seg Neutrophils % Seg Neuts % (Manual) 96.0 H Lymphocytes % (Manual) 3.0 L Seg Neutrophils # Seg Neutrophils # Man 15.0 H Lymphocytes # (Manual) 0.5 L PT 16.7 H INR 1.30 H APTT D-Dimer Heparin Anti-Xa Level Sodium 131 L Potassium 5.1 H Chloride 88.4 L Carbon Dioxide 20 L BUN 34 H Creatinine 1.5 H Glucose 574 H* POC Glucose Magnesium Ferritin AST Lactate Dehydrogenase Troponin T 0.882 H* C-Reactive Protein NT-Pro-B Natriuret Pep Albumin Triglycerides 292 H HDL Cholesterol 23 L Coronavirus (PCR) 02/14/21 02/14/21 02/14/21 20:21 23:11 23:20 WBC RBC Hgb Hct MCV MCH MCHC RDW Lymph % (Auto) Antelope % (Auto) Eos % (Auto) Lymph # (Auto) Eos # (Auto) Seg Neutrophils % Seg Neuts % (Manual) Lymphocytes % (Manual) Seg Neutrophils # Seg Neutrophils # Man Lymphocytes # (Manual) PT INR APTT D-Dimer Heparin Anti-Xa Level Sodium Potassium Chloride Carbon Dioxide BUN Creatinine Glucose POC Glucose 562 H 422 H Magnesium Ferritin AST Lactate Dehydrogenase Troponin T 0.892 H* C-Reactive Protein NT-Pro-B Natriuret Pep Albumin Triglycerides HDL Cholesterol Coronavirus (PCR) 02/15/21 02/15/21 02/15/21 03:55 03:55 05:29 WBC RBC 5.17 H Hgb Hct MCV 77 L MCH 26 L MCHC RDW 15.8 H Lymph % (Auto) 4.9 L [place]elope % (Auto) Eos % (Auto) Lymph # (Auto) 0.5 L Eos # (Auto) Seg Neutrophils % 89.2 H Seg Neuts % (Manual) Lymphocytes % (Manual) Seg Neutrophils # 8.4 H Seg Neutrophils # Man Lymphocytes # (Manual) PT INR APTT D-Dimer Heparin Anti-Xa Level Sodium 136 L Potassium Chloride 97.3 L Carbon Dioxide 18 L BUN 33 H Creatinine Glucose 402 H POC Glucose 345 H Magnesium Ferritin AST 46 H Lactate Dehydrogenase Troponin T 0.992 H* C-Reactive Protein NT-Pro-B Natriuret Pep Albumin 3.0 L Triglycerides HDL Cholesterol Coronavirus (PCR) 02/15/21 02/15/21 02/15/21 08:38 08:38 08:38 WBC RBC Hgb Hct MCV 75 L MCH 26 L MCHC 35 H RDW 16.2 H Lymph % (Auto) [place]elope % (Auto) Eos % (Auto) Lymph # (Auto) Eos # (Auto) Seg Neutrophils % Seg Neuts % (Manual) Lymphocytes % (Manual) Seg Neutrophils # Seg Neutrophils # Man Lymphocytes # (Manual) PT INR APTT D-Dimer Heparin Anti-Xa Level Sodium 135 L Potassium Chloride Carbon Dioxide 19 L BUN 31 H Creatinine Glucose 360 H POC Glucose Magnesium 2.50 H Ferritin AST Lactate Dehydrogenase Troponin T C-Reactive Protein NT-Pro-B Natriuret Pep 4086 H Albumin Triglycerides HDL Cholesterol Coronavirus (PCR) 02/15/21 02/15/21 02/15/21 11:15 17:28 18:20 WBC RBC Hgb Hct MCV MCH MCHC RDW Lymph % (Auto) [place]elope % (Auto) Eos % (Auto) Lymph # (Auto) Eos # (Auto) Seg Neutrophils % Seg Neuts % (Manual) Lymphocytes % (Manual) Seg Neutrophils # Seg Neutrophils # Man Lymphocytes # (Manual) PT INR APTT D-Dimer > 82344 H Heparin Anti-Xa Level Sodium Potassium Chloride Carbon Dioxide BUN Creatinine Glucose POC Glucose 317 H 311 H Magnesium Ferritin AST Lactate Dehydrogenase Troponin T C-Reactive Protein NT-Pro-B Natriuret Pep Albumin Triglycerides HDL Cholesterol Coronavirus (PCR) 02/15/21 02/15/21 02/15/21 18:20 18:20 18:20 WBC RBC Hgb Hct MCV MCH MCHC RDW Lymph % (Auto) [place]elope % (Auto) Eos % (Auto) Lymph # (Auto) Eos # (Auto) Seg Neutrophils % Seg Neuts % (Manual) Lymphocytes % (Manual) Seg Neutrophils # Seg Neutrophils # Man Lymphocytes # (Manual) PT 15.8 H INR 1.20 H APTT D-Dimer Heparin Anti-Xa Level Sodium Potassium Chloride Carbon Dioxide BUN Creatinine Glucose POC Glucose Magnesium Ferritin 837.7 H AST Lactate Dehydrogenase 766 H Troponin T C-Reactive Protein 21.50 H NT-Pro-B Natriuret Pep Albumin Triglycerides HDL Cholesterol Coronavirus (PCR) 02/15/21 02/16/21 02/16/21 23:45 02:44 02:44 WBC RBC Hgb Hct MCV 77 L MCH 26 L MCHC RDW 16.0 H Lymph % (Auto) [place]elope % (Auto) Eos % (Auto) Lymph # (Auto) Eos # (Auto) Seg Neutrophils % Seg Neuts % (Manual) Lymphocytes % (Manual) Seg Neutrophils # Seg Neutrophils # Man Lymphocytes # (Manual) PT INR APTT D-Dimer Heparin Anti-Xa Level Sodium Potassium Chloride Carbon Dioxide BUN 27 H Creatinine Glucose 269 H POC Glucose 203 H Magnesium Ferritin AST Lactate Dehydrogenase Troponin T C-Reactive Protein NT-Pro-B Natriuret Pep Albumin Triglycerides HDL Cholesterol Coronavirus (PCR) 02/16/21 02/16/21 02/16/21 05:47 11:50 15:00 WBC RBC Hgb Hct MCV MCH MCHC RDW Lymph % (Auto) [place]elope % (Auto) Eos % (Auto) Lymph # (Auto) Eos # (Auto) Seg Neutrophils % Seg Neuts % (Manual) Lymphocytes % (Manual) Seg Neutrophils # Seg Neutrophils # Man Lymphocytes # (Manual) PT INR APTT D-Dimer Heparin Anti-Xa Level < 0.10 L Sodium Potassium Chloride Carbon Dioxide BUN Creatinine Glucose POC Glucose 275 H 251 H Magnesium Ferritin AST Lactate Dehydrogenase Troponin T C-Reactive Protein NT-Pro-B Natriuret Pep Albumin Triglycerides HDL Cholesterol Coronavirus (PCR) 02/16/21 02/16/21 02/16/21 18:23 23:30 23:57 WBC RBC Hgb Hct MCV MCH MCHC RDW Lymph % (Auto) [place]elope % (Auto) Eos % (Auto) Lymph # (Auto) Eos # (Auto) Seg Neutrophils % Seg Neuts % (Manual) Lymphocytes % (Manual) Seg Neutrophils # Seg Neutrophils # Man Lymphocytes # (Manual) PT INR APTT D-Dimer Heparin Anti-Xa Level < 0.10 L Sodium Potassium Chloride Carbon Dioxide BUN Creatinine Glucose POC Glucose 237 H 249 H Magnesium Ferritin AST Lactate Dehydrogenase Troponin T C-Reactive Protein NT-Pro-B Natriuret Pep Albumin Triglycerides HDL Cholesterol Coronavirus (PCR) 02/16/21 02/17/21 02/17/21 Unknown 05:25 06:18 WBC RBC Hgb Hct MCV MCH MCHC RDW Lymph % (Auto) [place]elope % (Auto) Eos % (Auto) Lymph # (Auto) Eos # (Auto) Seg Neutrophils % Seg Neuts % (Manual) Lymphocytes % (Manual) Seg Neutrophils # Seg Neutrophils # Man Lymphocytes # (Manual) PT INR APTT D-Dimer Heparin Anti-Xa Level Sodium Potassium Chloride Carbon Dioxide BUN Creatinine Glucose POC Glucose 238 H 229 H Magnesium Ferritin AST Lactate Dehydrogenase Troponin T C-Reactive Protein NT-Pro-B Natriuret Pep Albumin Triglycerides HDL Cholesterol Coronavirus (PCR) Positive A 02/17/21 02/17/21 02/17/21 11:35 13:30 13:30 WBC RBC Hgb Hct MCV MCH MCHC RDW Lymph % (Auto) [place]elope % (Auto) Eos % (Auto) Lymph # (Auto) Eos # (Auto) Seg Neutrophils % Seg Neuts % (Manual) Lymphocytes % (Manual) Seg Neutrophils # Seg Neutrophils # Man Lymphocytes # (Manual) PT INR APTT D-Dimer Heparin Anti-Xa Level 0.29 L Sodium 146 H D Potassium Chloride 107.3 H Carbon Dioxide BUN 29 H Creatinine Glucose 334 H POC Glucose 279 H Magnesium Ferritin AST Lactate Dehydrogenase Troponin T C-Reactive Protein NT-Pro-B Natriuret Pep Albumin Triglycerides HDL Cholesterol Coronavirus (PCR) 02/17/21 02/17/21 02/17/21 13:30 13:30 16:42 WBC RBC Hgb Hct MCV 77 L MCH 25 L MCHC RDW 16.1 H Lymph % (Auto) [place]elope % (Auto) Eos % (Auto) Lymph # (Auto) Eos # (Auto) Seg Neutrophils % Seg Neuts % (Manual) Lymphocytes % (Manual) Seg Neutrophils # Seg Neutrophils # Man Lymphocytes # (Manual) PT INR APTT D-Dimer Heparin Anti-Xa Level Sodium 146 H Potassium Chloride Carbon Dioxide BUN 29 H Creatinine Glucose 340 H POC Glucose 291 H Magnesium Ferritin AST Lactate Dehydrogenase Troponin T C-Reactive Protein NT-Pro-B Natriuret Pep Albumin 2.7 L Triglycerides HDL Cholesterol Coronavirus (PCR) 02/17/21 02/18/21 02/18/21 21:43 04:40 04:40 WBC RBC Hgb Hct MCV 78 L MCH 26 L MCHC RDW 16.3 H Lymph % (Auto) [place]elope % (Auto) Eos % (Auto) Lymph # (Auto) Eos # (Auto) Seg Neutrophils % Seg Neuts % (Manual) Lymphocytes % (Manual) Seg Neutrophils # Seg Neutrophils # Man Lymphocytes # (Manual) PT INR APTT D-Dimer Heparin Anti-Xa Level Sodium 149 H Potassium Chloride 108.9 H Carbon Dioxide BUN 34 H Creatinine Glucose 318 H POC Glucose 288 H Magnesium Ferritin AST Lactate Dehydrogenase Troponin T C-Reactive Protein 14.50 H NT-Pro-B Natriuret Pep Albumin 3.0 L Triglycerides HDL Cholesterol Coronavirus (PCR) 02/18/21 02/18/21 02/18/21 04:40 08:02 11:30 WBC RBC Hgb Hct MCV MCH MCHC RDW Lymph % (Auto) [place]elope % (Auto) Eos % (Auto) Lymph # (Auto) Eos # (Auto) Seg Neutrophils % Seg Neuts % (Manual) Lymphocytes % (Manual) Seg Neutrophils # Seg Neutrophils # Man Lymphocytes # (Manual) PT INR APTT D-Dimer 3846.94 H Heparin Anti-Xa Level Sodium Potassium Chloride Carbon Dioxide BUN Creatinine Glucose POC Glucose 263 H 309 H Magnesium Ferritin AST Lactate Dehydrogenase Troponin T C-Reactive Protein NT-Pro-B Natriuret Pep Albumin Triglycerides HDL Cholesterol Coronavirus (PCR) 02/18/21 02/18/21 02/18/21 12:29 21:56 22:34 WBC RBC Hgb Hct MCV MCH MCHC RDW Lymph % (Auto) [place]elope % (Auto) Eos % (Auto) Lymph # (Auto) Eos # (Auto) Seg Neutrophils % Seg Neuts % (Manual) Lymphocytes % (Manual) Seg Neutrophils # Seg Neutrophils # Man Lymphocytes # (Manual) PT INR APTT D-Dimer Heparin Anti-Xa Level 0.29 L Sodium Potassium Chloride Carbon Dioxide BUN Creatinine Glucose POC Glucose 313 H 284 H Magnesium Ferritin AST Lactate Dehydrogenase Troponin T C-Reactive Protein NT-Pro-B Natriuret Pep Albumin Triglycerides HDL Cholesterol Coronavirus (PCR) 02/18/21 02/19/21 02/19/21 23:52 06:11 07:54 WBC RBC Hgb Hct MCV MCH MCHC RDW Lymph % (Auto) [place]elope % (Auto) Eos % (Auto) Lymph # (Auto) Eos # (Auto) Seg Neutrophils % Seg Neuts % (Manual) Lymphocytes % (Manual) Seg Neutrophils # Seg Neutrophils # Man Lymphocytes # (Manual) PT INR APTT D-Dimer Heparin Anti-Xa Level Sodium 151 H Potassium Chloride 110.6 H Carbon Dioxide BUN 28 H Creatinine Glucose 191 H POC Glucose 272 H 155 H Magnesium Ferritin AST Lactate Dehydrogenase Troponin T C-Reactive Protein NT-Pro-B Natriuret Pep Albumin 3.0 L Triglycerides HDL Cholesterol Coronavirus (PCR) 02/19/21 02/19/21 02/19/21 12:37 16:29 21:28 WBC RBC Hgb Hct MCV MCH MCHC RDW Lymph % (Auto) [place]elope % (Auto) Eos % (Auto) Lymph # (Auto) Eos # (Auto) Seg Neutrophils % Seg Neuts % (Manual) Lymphocytes % (Manual) Seg Neutrophils # Seg Neutrophils # Man Lymphocytes # (Manual) PT INR APTT D-Dimer Heparin Anti-Xa Level Sodium Potassium Chloride Carbon Dioxide BUN Creatinine Glucose POC Glucose 233 H 268 H 298 H Magnesium Ferritin AST Lactate Dehydrogenase Troponin T C-Reactive Protein NT-Pro-B Natriuret Pep Albumin Triglycerides HDL Cholesterol Coronavirus (PCR) 02/19/21 02/20/21 02/20/21 23:34 06:39 06:39 WBC RBC 5.08 H Hgb Hct MCV 77 L MCH 25 L MCHC RDW 16.0 H Lymph % (Auto) [place]elope % (Auto) Eos % (Auto) Lymph # (Auto) Eos # (Auto) Seg Neutrophils % Seg Neuts % (Manual) 88.0 H Lymphocytes % (Manual) 4.0 L Seg Neutrophils # Seg Neutrophils # Man Lymphocytes # (Manual) 0.2 L PT INR APTT D-Dimer 4275.78 H Heparin Anti-Xa Level 0.26 L Sodium Potassium Chloride Carbon Dioxide BUN Creatinine Glucose POC Glucose Magnesium Ferritin AST Lactate Dehydrogenase Troponin T C-Reactive Protein NT-Pro-B Natriuret Pep Albumin Triglycerides HDL Cholesterol Coronavirus (PCR) 02/20/21 02/20/21 02/20/21 06:39 06:39 08:45 WBC RBC Hgb Hct MCV MCH MCHC RDW Lymph % (Auto) [place]elope % (Auto) Eos % (Auto) Lymph # (Auto) Eos # (Auto) Seg Neutrophils % Seg Neuts % (Manual) Lymphocytes % (Manual) Seg Neutrophils # Seg Neutrophils # Man Lymphocytes # (Manual) PT INR APTT D-Dimer Heparin Anti-Xa Level Sodium 152 H 151 H Potassium Chloride 112.0 H 111.4 H Carbon Dioxide 31 H BUN 23 H 23 H Creatinine Glucose 119 H 140 H POC Glucose Magnesium Ferritin 915.5 H AST Lactate Dehydrogenase 645 H Troponin T C-Reactive Protein 3.60 H NT-Pro-B Natriuret Pep Albumin 3.1 L Triglycerides HDL Cholesterol Coronavirus (PCR) 02/20/21 02/20/21 02/20/21 11:57 18:01 22:20 WBC RBC Hgb Hct MCV MCH MCHC RDW Lymph % (Auto) [place]elope % (Auto) Eos % (Auto) Lymph # (Auto) Eos # (Auto) Seg Neutrophils % Seg Neuts % (Manual) Lymphocytes % (Manual) Seg Neutrophils # Seg Neutrophils # Man Lymphocytes # (Manual) PT INR APTT D-Dimer Heparin Anti-Xa Level Sodium Potassium Chloride Carbon Dioxide BUN Creatinine Glucose POC Glucose 217 H 337 H 379 H Magnesium Ferritin AST Lactate Dehydrogenase Troponin T C-Reactive Protein NT-Pro-B Natriuret Pep Albumin Triglycerides HDL Cholesterol Coronavirus (PCR) 02/21/21 02/21/21 02/21/21 07:43 11:42 16:30 WBC RBC Hgb Hct MCV MCH MCHC RDW Lymph % (Auto) [place]elope % (Auto) Eos % (Auto) Lymph # (Auto) Eos # (Auto) Seg Neutrophils % Seg Neuts % (Manual) Lymphocytes % (Manual) Seg Neutrophils # Seg Neutrophils # Man Lymphocytes # (Manual) PT INR APTT D-Dimer Heparin Anti-Xa Level Sodium Potassium Chloride Carbon Dioxide BUN Creatinine Glucose POC Glucose 152 H 206 H 235 H Magnesium Ferritin AST Lactate Dehydrogenase Troponin T C-Reactive Protein NT-Pro-B Natriuret Pep Albumin Triglycerides HDL Cholesterol Coronavirus (PCR) 02/21/21 02/22/21 02/22/21 21:56 05:51 06:50 WBC RBC Hgb Hct MCV MCH MCHC RDW Lymph % (Auto) [place]elope % (Auto) Eos % (Auto) Lymph # (Auto) Eos # (Auto) Seg Neutrophils % Seg Neuts % (Manual) Lymphocytes % (Manual) Seg Neutrophils # Seg Neutrophils # Man Lymphocytes # (Manual) PT INR APTT D-Dimer Heparin Anti-Xa Level Sodium Potassium 3.5 L Chloride Carbon Dioxide 31 H BUN 19 H Creatinine Glucose 118 H POC Glucose 205 H 121 H Magnesium Ferritin AST Lactate Dehydrogenase Troponin T C-Reactive Protein NT-Pro-B Natriuret Pep Albumin Triglycerides HDL Cholesterol Coronavirus (PCR) 02/22/21 02/22/21 02/22/21 07:55 11:47 15:12 WBC RBC Hgb Hct MCV 76 L MCH 26 L MCHC RDW Lymph % (Auto) [place]elope % (Auto) Eos % (Auto) Lymph # (Auto) Eos # (Auto) Seg Neutrophils % Seg Neuts % (Manual) Lymphocytes % (Manual) Seg Neutrophils # Seg Neutrophils # Man Lymphocytes # (Manual) PT INR APTT D-Dimer Heparin Anti-Xa Level Sodium Potassium Chloride Carbon Dioxide BUN Creatinine Glucose POC Glucose 148 H 216 H Magnesium Ferritin AST Lactate Dehydrogenase Troponin T C-Reactive Protein NT-Pro-B Natriuret Pep Albumin Triglycerides HDL Cholesterol Coronavirus (PCR) 02/22/21 02/22/21 02/22/21 15:12 17:55 22:01 WBC RBC Hgb Hct MCV MCH MCHC RDW Lymph % (Auto) [place]elope % (Auto) Eos % (Auto) Lymph # (Auto) Eos # (Auto) Seg Neutrophils % Seg Neuts % (Manual) Lymphocytes % (Manual) Seg Neutrophils # Seg Neutrophils # Man Lymphocytes # (Manual) PT INR APTT 50.0 H D-Dimer Heparin Anti-Xa Level Sodium Potassium Chloride Carbon Dioxide BUN Creatinine Glucose POC Glucose 327 H 173 H Magnesium Ferritin AST Lactate Dehydrogenase Troponin T C-Reactive Protein NT-Pro-B Natriuret Pep Albumin Triglycerides HDL Cholesterol Coronavirus (PCR) 02/23/21 02/23/21 02/23/21 07:36 10:32 15:49 WBC RBC Hgb Hct MCV MCH MCHC RDW Lymph % (Auto) [place]elope % (Auto) Eos % (Auto) Lymph # (Auto) Eos # (Auto) Seg Neutrophils % Seg Neuts % (Manual) Lymphocytes % (Manual) Seg Neutrophils # Seg Neutrophils # Man Lymphocytes # (Manual) PT INR APTT D-Dimer Heparin Anti-Xa Level Sodium Potassium Chloride Carbon Dioxide BUN Creatinine Glucose POC Glucose 149 H 240 H 338 H Magnesium Ferritin AST Lactate Dehydrogenase Troponin T C-Reactive Protein NT-Pro-B Natriuret Pep Albumin Triglycerides HDL Cholesterol Coronavirus (PCR) 02/23/21 02/24/21 02/24/21 21:20 05:42 07:45 WBC RBC 5.26 H Hgb Hct MCV 77 L MCH 25 L MCHC RDW Lymph % (Auto) [place]elope % (Auto) Eos % (Auto) Lymph # (Auto) Eos # (Auto) Seg Neutrophils % Seg Neuts % (Manual) Lymphocytes % (Manual) Seg Neutrophils # Seg Neutrophils # Man Lymphocytes # (Manual) PT INR APTT D-Dimer Heparin Anti-Xa Level Sodium Potassium Chloride Carbon Dioxide BUN Creatinine Glucose POC Glucose 311 H 118 H Magnesium Ferritin AST Lactate Dehydrogenase Troponin T C-Reactive Protein NT-Pro-B Natriuret Pep Albumin Triglycerides HDL Cholesterol Coronavirus (PCR) 02/24/21 02/24/21 02/24/21 12:28 16:27 22:20 WBC RBC Hgb Hct MCV MCH MCHC RDW Lymph % (Auto) [place]elope % (Auto) Eos % (Auto) Lymph # (Auto) Eos # (Auto) Seg Neutrophils % Seg Neuts % (Manual) Lymphocytes % (Manual) Seg Neutrophils # Seg Neutrophils # Man Lymphocytes # (Manual) PT INR APTT D-Dimer Heparin Anti-Xa Level Sodium Potassium Chloride Carbon Dioxide BUN Creatinine Glucose POC Glucose 240 H 446 H 246 H Magnesium Ferritin AST Lactate Dehydrogenase Troponin T C-Reactive Protein NT-Pro-B Natriuret Pep Albumin Triglycerides HDL Cholesterol Coronavirus (PCR) 02/25/21 02/25/21 02/25/21 05:58 05:58 12:24 WBC RBC 5.72 H Hgb 14.5 H Hct 44.0 H MCV 77 L MCH 25 L MCHC RDW 15.5 H Lymph % (Auto) [place]elope % (Auto) 7.6 H Eos % (Auto) Lymph # (Auto) Eos # (Auto) Seg Neutrophils % 71.3 H Seg Neuts % (Manual) Lymphocytes % (Manual) Seg Neutrophils # Seg Neutrophils # Man Lymphocytes # (Manual) PT INR APTT D-Dimer Heparin Anti-Xa Level Sodium Potassium Chloride Carbon Dioxide BUN 18 H Creatinine Glucose POC Glucose 248 H Magnesium Ferritin AST Lactate Dehydrogenase Troponin T C-Reactive Protein NT-Pro-B Natriuret Pep Albumin Triglycerides HDL Cholesterol Coronavirus (PCR) 02/25/21 02/25/21 02/26/21 17:06 21:25 07:48 WBC RBC 5.24 H Hgb Hct MCV 78 L MCH 26 L MCHC RDW 15.5 H Lymph % (Auto) [place]elope % (Auto) Eos % (Auto) Lymph # (Auto) Eos # (Auto) Seg Neutrophils % Seg Neuts % (Manual) Lymphocytes % (Manual) Seg Neutrophils # Seg Neutrophils # Man Lymphocytes # (Manual) PT INR APTT D-Dimer Heparin Anti-Xa Level Sodium Potassium Chloride Carbon Dioxide BUN Creatinine Glucose POC Glucose 335 H 256 H Magnesium Ferritin AST Lactate Dehydrogenase Troponin T C-Reactive Protein NT-Pro-B Natriuret Pep Albumin Triglycerides HDL Cholesterol Coronavirus (PCR) 02/26/21 02/26/21 02/26/21 11:15 18:02 21:50 WBC RBC Hgb Hct MCV MCH MCHC RDW Lymph % (Auto) [place]elope % (Auto) Eos % (Auto) Lymph # (Auto) Eos # (Auto) Seg Neutrophils % Seg Neuts % (Manual) Lymphocytes % (Manual) Seg Neutrophils # Seg Neutrophils # Man Lymphocytes # (Manual) PT INR APTT D-Dimer Heparin Anti-Xa Level Sodium Potassium Chloride Carbon Dioxide BUN Creatinine Glucose POC Glucose 224 H 296 H 259 H Magnesium Ferritin AST Lactate Dehydrogenase Troponin T C-Reactive Protein NT-Pro-B Natriuret Pep Albumin Triglycerides HDL Cholesterol Coronavirus (PCR) 02/27/21 02/27/21 02/27/21 11:47 17:33 21:42 WBC RBC Hgb Hct MCV MCH MCHC RDW Lymph % (Auto) [place]elope % (Auto) Eos % (Auto) Lymph # (Auto) Eos # (Auto) Seg Neutrophils % Seg Neuts % (Manual) Lymphocytes % (Manual) Seg Neutrophils # Seg Neutrophils # Man Lymphocytes # (Manual) PT INR APTT D-Dimer Heparin Anti-Xa Level Sodium Potassium Chloride Carbon Dioxide BUN Creatinine Glucose POC Glucose 188 H 285 H 268 H Magnesium Ferritin AST Lactate Dehydrogenase Troponin T C-Reactive Protein NT-Pro-B Natriuret Pep Albumin Triglycerides HDL Cholesterol Coronavirus (PCR) 02/28/21 02/28/21 02/28/21 06:13 06:13 07:49 WBC 3.6 L RBC 5.14 H Hgb Hct MCV 78 L MCH 26 L MCHC RDW 16.0 H Lymph % (Auto) [place]elope % (Auto) 10.3 H Eos % (Auto) 13.7 H Lymph # (Auto) 0.9 L Eos # (Auto) 0.5 H Seg Neutrophils % Seg Neuts % (Manual) Lymphocytes % (Manual) Seg Neutrophils # Seg Neutrophils # Man Lymphocytes # (Manual) PT INR APTT D-Dimer Heparin Anti-Xa Level Sodium Potassium Chloride Carbon Dioxide BUN Creatinine Glucose 166 H POC Glucose 150 H Magnesium Ferritin AST Lactate Dehydrogenase Troponin T C-Reactive Protein NT-Pro-B Natriuret Pep Albumin Triglycerides HDL Cholesterol Coronavirus (PCR) 02/28/21 02/28/21 02/28/21 11:20 15:40 21:42 WBC RBC Hgb Hct MCV MCH MCHC RDW Lymph % (Auto) [place]elope % (Auto) Eos % (Auto) Lymph # (Auto) Eos # (Auto) Seg Neutrophils % Seg Neuts % (Manual) Lymphocytes % (Manual) Seg Neutrophils # Seg Neutrophils # Man Lymphocytes # (Manual) PT INR APTT D-Dimer Heparin Anti-Xa Level Sodium Potassium Chloride Carbon Dioxide BUN Creatinine Glucose POC Glucose 235 H 253 H 280 H Magnesium Ferritin AST Lactate Dehydrogenase Troponin T C-Reactive Protein NT-Pro-B Natriuret Pep Albumin Triglycerides HDL Cholesterol Coronavirus (PCR) 03/01/21 03/01/21 07:25 12:28 WBC RBC Hgb Hct MCV MCH MCHC RDW Lymph % (Auto) [place]elope % (Auto) Eos % (Auto) Lymph # (Auto) Eos # (Auto) Seg Neutrophils % Seg Neuts % (Manual) Lymphocytes % (Manual) Seg Neutrophils # Seg Neutrophils # Man Lymphocytes # (Manual) PT INR APTT D-Dimer Heparin Anti-Xa Level Sodium Potassium Chloride Carbon Dioxide BUN Creatinine Glucose POC Glucose 155 H 204 H Magnesium Ferritin AST Lactate Dehydrogenase Troponin T C-Reactive Protein NT-Pro-B Natriuret Pep Albumin Triglycerides HDL Cholesterol Coronavirus (PCR)
[2021-03-01] MEDS: INSULIN GLARGINE 100 UNITS/ML SUB-Q SCH (21:43)
[2021-03-02] MEDS: HYDROcodone/ACETAMINOPHEN 5-325 MG TAB PO PRN (05:25)
--- NOTE | 2021-03-02 08:13 | Progress Note ---
Assessment and Plan Assessment and plan: Assessment and plan: 55-year-old female with PmHx of HTN, uterine fibroids and ex-smoker admitted for acute right MCA CVA and STEMI s/p PCI in RCA, now with acute respiratory di stress requiring continuous Bipap. Acute right MCA CVA - 02/13/21- CT head shows microvascular angiopathy, decreased attenuation along the posterior right frontal subcortical region, no acute intracranial hemorrhage - 02/13/2021- CTA head shows decreased attenuation along the posterior right frontal lobe, no CT evidence of significant stenosis involving proximal cerebral branches particularly the proximal right MCA - 02/13/21- CTA neck shows mild atherosclerotic calcification involving the proximal internal carotid arteries bilaterally without significant stenosis - MRI brain and MRA brain and neck reveals several scattered foci are recent infarct in both the cerebellum and cerebral hemispheres. No hemorrhage or adverse mass-effect. Findings likely indicate embolic phenomenon. - Not candidate for any intervention- out of the time window - PT/OT/ST eval - Neurology consulted, appreciate recommendations STEMI s/p PCI in RCA, h/o HTN Rt. Ventricle Thrombus - 02/13/2021 Echo: EF 55%, mild concentric left ventricular Hypertrophy,suspected thrombus in right ventricle - Heparin protocol initiated, ok to transition to warfarin or NOAC on d/c - On Statin, beta-silas, Plavix and aspirin - 02/16 X1 dose rectal ASA- due to NPO status - Strict I&O Acute hypoxic respiratory secondary to COVID COVID-19 Pneumonia Dysphagia - Speech eval completed, pass swallow - Pureed diet with thin liquid order Acute kidney injury - improving - Initial cr. 1.5. Sepsis 2/2 bilateral PNA, COVID PNA Anemia - On heparin gtt per protocol, ASA and plavix - Monitor for s/s of bleeding Hyperglycemia - Lantus increased to 10 units SUBQ Hospital Course to date: 02/16/21- Patient AAOX4, with slurred speech and Lt. sided weakness. MRI/MRA brain pending. Remains on continuous Bipap, failed optiflow trial overnight. Bilateral infiltrate noted on today CXR additional lasix was adminstered to optimize Respiratory status, However was D/C due to marginal BP concern for Hypoperfusion. Will reassess in the Am. Plan to wean off Bipap as tolerated. Patient has been NPO due to continuous Bipap. When patient is off bipap nurse to complete bedside swallow screen, if fail will place NGT so pateint can received PO meds. Low grade temp today, TMAX 101.2 in last 24hrs, Bcult pending, on IV abx, ceftriaxone and azithromycin. COVID swab result pending, ID on the case rec to start dexamethasone 6 mg IV/p.o. daily for 10 days. 02/17/21- COVID PCR can back possible, patient was already on Rocephin and azithromaci, added Remdesevir per protocol, and IV decadron was initiated. Patient was wean to heated high flow, currently on 70% FiO2 and 40L. Wean O2 supplement as tolerated for a SPO2b goal above 88%. Persistent hyperglycemia, lantus increased to 10 units. Speech eval completed, patient pass swallow, order placed for pureed diet with thin liquid. Will continue to monitor, Heparing gtt per protocol, Am labs ordered. 02/18/21-blood sugars this morning over 300. Ordered 10 units of IV insulin once. Added 5 units scheduled insulin in addition to sliding scale insulin. Diet change to diabetic diet. 02/19/21: Transfer to floor. NG tube d/c. 02/20/21: Will get speech therapy to re-evaluate patient to see if patient can be escalated from pureed diet. Cardiology recommendations noted, BB is increased. Continue supportive management for covid 19 pneumonia. HFNC currently at 35 l/min/fio2=60%. Ok with sats > 88%. Attempted to call Durga but voicemail was to another person in chart. Will attempt to find another number to update . 02/21/2021. Patient currently with 35 L of oxygen with an FiO2 of 70%. Continue statin therapy, beta blockers, and DAPT with plavix and aspirin per cardiology recommendation. Continue intravenous heparin, ultimately will be transitioned to long-term warfarin therapy or a NOAC. 02/22/2021. Patient's oxygen requirement has been decreased to 30 L/min via HFNC with FiO2 50%. Continue per ID and pulmonary recommendations. Patient received Actemra 02/17/2021. Complete remdesivir x5 days. Complete dexamethasone IV for 10 days. Cardiology also recommends continued statin therapy, beta-blockers and DAPT with Plavix and aspirin. Continue IV heparin and transition to long-term warfarin or NOAC per cardiology 02/23/2021. Chest x-ray from yesterday is unchanged. Patient currently on high flow nasal cannula 30 L/min with FiO2 35%. Continue per ID and pulmonary recommendations. Patient received Actemra 02/17/2021. Complete remdesivir x5 days. Complete dexamethasone IV for 10 days. Cardiology also recommends continued statin therapy, beta-blockers and DAPT with Plavix and aspirin. Continue IV heparin and transition to long-term warfarin or NOAC per cardiology 02/24/2021. Patient remains on high flow nasal cannula 30 L O2 with FiO2 35%. Patient will complete dexamethasone on 02/26/2021. Patient is s/p remdesivir and Actemra. Continue prone positioning as able. Continue statin therapy, beta- blockers and DAPT with Plavix and aspirin. Continue IV heparin and transition to long-term warfarin or NOAC per cardiology 02/25/2021. Patient on high flow nasal cannula with 15 L and FiO2 of 30%. Continue dexamethasone until tomorrow. Patient is s/p remdesivir and Actemra. Continue prone positioning as able. Continue statin therapy, beta-blockers and DAPT with Plavix and aspirin. Continue IV heparin and transition to long-term warfarin or NOAC per cardiology 02/26/2021. Patient on high flow nasal cannula with 15 L and FiO2 of 30%. Continue dexamethasone for total of 14 days per pulmonary recommendations. Patient is s/p remdesivir and Actemra. Continue prone positioning as able. Continue statin therapy, beta-blockers and DAPT with Plavix and aspirin. Continue IV heparin and transition to long-term warfarin or NOAC per cardiology 02/27/2021. Patient on high flow nasal cannula with 15 L and FiO2 of 25%. Continue dexamethasone for total of 14 days per pulmonary recommendations. Resume dexamethasone 10 mg IV daily for 4 more days. Patient is s/p remdesivir and Actemra. Continue prone positioning as able. Continue statin therapy, beta-blockers and DAPT with Plavix and aspirin. Cardiology initiated anticoagulation with Eliquis. 02/28/21 Patient with Covid-19 She is on Oxygen at 11 l/min, down from 15 l/min yesterday. 03/01/21 Patient with Covid-19 with acute respiratory failure. She is on Oxygen at 4 l/min, down from 11 l/min yesterday. She has been on high flow oxygen previously. Hopefully dc home in few days. To check ambulatory pulse ox prior to discharge. 03/02/21 acute hypoxic respiratory failure COVID-19 pneumonia has improved. She is down to 2 L oxygen by nasal cannula. Blood glucose is uncontrolled. Will increase lantus to 15 units sc qhs. Continue dexamethasone for COVID-19. BP is uncontrolled and will start Norvasc 5 mg p.o. daily. Continue current dose of beta-silas. Continue ASA, plavix and eliquis. Had initial elevated d-dimer, will recheck d-dimer. Complains of constipation and will start daily MiraLAX, continue as needed Colace History Interval history: Has constipation and rectal pain. Still cough. Shortness of breath, fever, chills Hospitalist Physical - Constitutional Vitals: Temp Pulse Resp BP Pulse Ox 98.2 F 72 18 156/97 96 03/02/21 04:13 03/02/21 06:35 03/02/21 05:23 03/02/21 05:23 03/02/21 05:23 General appearance: Present: no acute distress, obese - EENT Eyes: Present: PERRL, EOM intact ENT: hearing intact, clear oral mucosa - Neck Neck: Present: supple, normal ROM - Respiratory Respiratory effort: normal Respiratory: bilateral: diminished - Cardiovascular Rhythm: regular Heart Sounds: Present: S1 & S2 - Extremities Extremities: No edema - Abdominal General gastrointestinal: soft, non-tender, non-distended, normal bowel sounds - Psychiatric Psychiatric: appropriate mood/affect HEART Score - HEART Score Troponin: Troponin T 0.992 ng/mL (0.00-0.029) H* 02/15/21 03:55 Results - Labs CBC & Chem 7: 02/28/21 06:13 02/28/21 06:13 Labs: Laboratory Last Values WBC 3.6 K/mm3 (4.5-11.0) L 02/28/21 06:13 RBC 5.14 M/mm3 (3.65-5.03) H 02/28/21 06:13 Hgb 13.2 gm/dl (10.1-14.3) 02/28/21 06:13 Hct 40.2 % (30.3-42.9) 02/28/21 06:13 MCV 78 fl (79-97) L 02/28/21 06:13 MCH 26 pg (28-32) L 02/28/21 06:13 MCHC 33 % (30-34) 02/28/21 06:13 RDW 16.0 % (13.2-15.2) H 02/28/21 06:13 Plt Count 165 K/mm3 (140-440) 02/28/21 06:13 Lymph % (Auto) 23.7 % (13.4-35.0) 02/28/21 06:13 [place] % (Auto) 10.3 % (0.0-7.3) H 02/28/21 06:13 Eos % (Auto) 13.7 % (0.0-4.3) H 02/28/21 06:13 Baso % (Auto) 0.9 % (0.0-1.8) 02/28/21 06:13 Lymph # (Auto) 0.9 K/mm3 (1.2-5.4) L 02/28/21 06:13 [place] # (Auto) 0.4 K/mm3 (0.0-0.8) 02/28/21 06:13 Eos # (Auto) 0.5 K/mm3 (0.0-0.4) H 02/28/21 06:13 Baso # (Auto) 0.0 K/mm3 (0.0-0.1) 02/28/21 06:13 Add Manual Diff Complete 02/20/21 06:39 Total Counted 100 02/20/21 06:39 Seg Neutrophils % 51.4 % (40.0-70.0) 02/28/21 06:13 Seg Neuts % (Manual) 88.0 % (40.0-70.0) H 02/20/21 06:39 Lymphocytes % (Manual) 4.0 % (13.4-35.0) L 02/20/21 06:39 Reactive Lymphs % (Man) 2.0 % 02/20/21 06:39 Monocytes % (Manual) 3.0 % (0.0-7.3) 02/20/21 06:39 Eosinophils % (Manual) 1.0 % (0.0-4.3) 02/20/21 06:39 Myelocytes % 2.0 % 02/20/21 06:39 Nucleated RBC % Not Reportable 02/20/21 06:39 Seg Neutrophils # 1.9 K/mm3 (1.8-7.7) 02/28/21 06:13 Seg Neutrophils # Man 5.5 K/mm3 (1.8-7.7) 02/20/21 06:39 Band Neutrophils # 0.0 K/mm3 02/20/21 06:39 Lymphocytes # (Manual) 0.2 K/mm3 (1.2-5.4) L 02/20/21 06:39 Abs React Lymphs (Man) 0.1 K/mm3 02/20/21 06:39 Monocytes # (Manual) 0.2 K/mm3 (0.0-0.8) 02/20/21 06:39 Eosinophils # (Manual) 0.1 K/mm3 (0.0-0.4) 02/20/21 06:39 Basophils # (Manual) 0.0 K/mm3 (0.0-0.1) 02/20/21 06:39 Metamyelocytes # 0.0 K/mm3 02/20/21 06:39 Myelocytes # 0.1 K/mm3 02/20/21 06:39 Promyelocytes # 0.0 K/mm3 02/20/21 06:39 Blast Cells # 0.0 K/mm3 02/20/21 06:39 WBC Morphology Not Reportable 02/20/21 06:39 Hypersegmented Neuts Not Reportable 02/20/21 06:39 Hyposegmented Neuts Not Reportable 02/20/21 06:39 Hypogranular Neuts Not Reportable 02/20/21 06:39 Smudge Cells Not Reportable 02/20/21 06:39 Toxic Granulation Not Reportable 02/20/21 06:39 Toxic Vacuolation Not Reportable 02/20/21 06:39 Dohle Bodies Not Reportable 02/20/21 06:39 Pelger-Huet Anomaly Not Reportable 02/20/21 06:39 Aba Rods Not Reportable 02/20/21 06:39 Platelet Estimate Consistent w auto 02/20/21 06:39 Clumped Platelets Not Reportable 02/20/21 06:39 Plt Clumps, EDTA Not Reportable 02/20/21 06:39 Large Platelets Not Reportable 02/20/21 06:39 Giant Platelets Not Reportable 02/20/21 06:39 Platelet Satelliting Not Reportable 02/20/21 06:39 Plt Morphology Comment Not Reportable 02/20/21 06:39 RBC Morphology Normal 02/20/21 06:39 Dimorphic RBCs Not Reportable 02/20/21 06:39 Polychromasia Not Reportable 02/20/21 06:39 Hypochromasia Not Reportable 02/20/21 06:39 Poikilocytosis Not Reportable 02/20/21 06:39 Anisocytosis Not Reportable 02/20/21 06:39 Microcytosis Not Reportable 02/20/21 06:39 Macrocytosis Not Reportable 02/20/21 06:39 Spherocytes Not Reportable 02/20/21 06:39 Pappenheimer Bodies Not Reportable 02/20/21 06:39 Sickle Cells Not Reportable 02/20/21 06:39 Target Cells Not Reportable 02/20/21 06:39 Tear Drop Cells Not Reportable 02/20/21 06:39 Ovalocytes Not Reportable 02/20/21 06:39 Helmet Cells Not Reportable 02/20/21 06:39 Bang-Bracey Bodies Not Reportable 02/20/21 06:39 [place] Rings Not Reportable 02/20/21 06:39 Nichols Cells Not Reportable 02/20/21 06:39 Bite Cells Not Reportable 02/20/21 06:39 Crenated Cell Not Reportable 02/20/21 06:39 Elliptocytes Not Reportable 02/20/21 06:39 Acanthocytes (Spur) Not Reportable 02/20/21 06:39 Rouleaux Not Reportable 02/20/21 06:39 Hemoglobin C Crystals Not Reportable 02/20/21 06:39 Schistocytes Not Reportable 02/20/21 06:39 Malaria parasites Not Reportable 02/20/21 06:39 Alberto Bodies Not Reportable 02/20/21 06:39 Hem Pathologist Commnt No 02/20/21 06:39 PT 14.1 Sec. (12.2-14.9) 02/22/21 15:12 INR 1.03 (0.87-1.13) 02/22/21 15:12 APTT 50.0 Sec. (24.2-36.6) H 02/22/21 15:12 Thrombin Time 17.2 Sec. (15.1-19.6) 02/14/21 20:21 D-Dimer 4275.78 ng/mlDDU (0-234) H 02/20/21 06:39 Heparin Anti-Xa Level 0.32 U.I./ml (0.3-0.7) 02/22/21 06:50 Sodium 141 mmol/L (137-145) 02/28/21 06:13 Potassium 4.1 mmol/L (3.6-5.0) 02/28/21 06:13 Chloride 102.8 mmol/L (98-107) 02/28/21 06:13 Carbon Dioxide 29 mmol/L (22-30) 02/28/21 06:13 Anion Gap 13 mmol/L 02/28/21 06:13 BUN 16 mg/dL (7-17) 02/28/21 06:13 Creatinine 0.7 mg/dL (0.6-1.2) 02/28/21 06:13 Creatinine 0.7 mg/dL (0.6-1.2) 02/28/21 06:13 Estimated GFR > 60 ml/min 02/28/21 06:13 Estimated GFR > 60 ml/min 02/28/21 06:13 BUN/Creatinine Ratio 23 % 02/28/21 06:13 Glucose 166 mg/dL (65-100) H 02/28/21 06:13 POC Glucose 281 mg/dL (70-105) H 03/01/21 21:01 Calcium 9.3 mg/dL (8.4-10.2) 02/28/21 06:13 Phosphorus 3.30 mg/dL (2.5-4.5) 02/22/21 06:50 Magnesium 1.80 mg/dL (1.7-2.3) 02/22/21 06:50 Ferritin 915.5 ng/mL (10.0-200.0) H 02/20/21 06:39 Total Bilirubin 0.30 mg/dL (0.1-1.2) 02/20/21 06:39 AST 36 units/L (5-40) 02/20/21 06:39 ALT 27 units/L (7-56) 02/20/21 06:39 Alkaline Phosphatase 74 units/L (35-129) 02/20/21 06:39 Lactate Dehydrogenase 645 units/L (91-180) H 02/20/21 06:39 Troponin T 0.992 ng/mL (0.00-0.029) H* 02/15/21 03:55 C-Reactive Protein 3.60 mg/dL (0.00-1.30) H 02/20/21 06:39 NT-Pro-B Natriuret Pep 4086 pg/mL (0-900) H 02/15/21 08:38 Total Protein 7.0 g/dL (6.3-8.2) 02/20/21 06:39 Albumin 3.1 g/dL (3.9-5) L 02/20/21 06:39 Albumin/Globulin Ratio 0.8 % 02/20/21 06:39 Triglycerides 292 mg/dL (2-149) H 02/14/21 20:21 Cholesterol 199 mg/dL (50-199) 02/14/21 20:21 LDL Cholesterol Direct 105 mg/dL (50-130) 02/14/21 20:21 HDL Cholesterol 23 mg/dL (40-59) L 02/14/21 20:21 Cholesterol/HDL Ratio 8.65 % 02/14/21 20:21 Procalcitonin 0.59 ng/mL (<0.15) 02/15/21 18:20 Coronavirus (PCR) Positive (Negative) A 02/16/21 Unknown Blood Type A POSITIVE 02/14/21 20:21 Antibody Screen Negative 02/14/21 20:21 Taylor/IV: Voiding Method External Female Catheter Active Medications - Current Medications Current Medications: Generic Name Dose Route Start Last Admin Trade Name Freq PRN Reason Stop Dose Admin Acetaminophen 650 mg 02/16/21 01:00 02/16/21 02:09 Acetaminophen 650 Mg Rect Supp ND 650 mg Q6H PRN Administration Pain, Mild (1-3) Hydrocodone Bitart/Acetaminophen 1 each 02/14/21 21:57 03/02/21 05:25 Hydrocodone/Acetaminophen 5-325 Mg Tab PO 1 each Q6H PRN Administration Pain, Moderate (4-6) Albuterol 2.5 mg 02/14/21 21:54 Albuterol 2.5 Mg/3 Ml Nebu IH Q4HRT PRN Shortness Of Breath Lipase/Protease/Amylase 1 each 02/17/21 12:34 Lipase 10,500/Protease 25,000/Amylase 43,750 (Units) Dr Betts FEEDTUBE PRN PRN For Clogged Feeding Tube Apixaban 2.5 mg 02/22/21 22:00 03/01/21 21:43 Apixaban 2.5 Mg Tab PO 2.5 mg Q12HR KARYN Administration Protocol Aspirin 81 mg 02/16/21 12:00 03/01/21 09:42 Aspirin 81 Mg Tab Chew PO 81 mg QDAY KARYN Administration Atorvastatin Calcium 80 mg 02/15/21 22:00 03/01/21 21:43 Atorvastatin 40 Mg Tab PO 80 mg QHS KARYN Administration Clopidogrel Bisulfate 75 mg 02/15/21 10:00 03/01/21 09:42 Clopidogrel 75 Mg Tab PO 75 mg QDAY KARYN Administration Dexamethasone 10 mg 02/27/21 10:00 03/01/21 09:43 Dexamethasone 4 Mg/Ml Vial IV 03/02/21 10:01 10 mg DAILY KARYN Administration Dextrose 0 ml 02/14/21 21:54 Dextrose 50% In Water (25gm) 50 Ml Syringe IV Q30MIN PRN Hypoglycemia Protocol Docusate Sodium 100 mg 02/14/21 22:04 02/22/21 09:15 Docusate Sodium 100 Mg Cap PO 100 mg DAILY PRN Administration Constip unreliev by MOM/or NPO Famotidine 20 mg 02/21/21 10:00 03/01/21 21:43 Famotidine 20 Mg Tab PO 20 mg BID KARYN Administration Ferrous Sulfate 300 mg 02/21/21 22:00 03/01/21 21:43 Ferrous Sulfate 300 Mg (60mg Elemental Iron) / 5 Ml Oral Liqd FEEDTUBE 300 mg BID KARYN Administration Guaifenesin 200 mg 02/26/21 22:54 02/26/21 23:22 Guaifenesin 100 Mg/5 Ml Oral Liqd PO 200 mg Q4H PRN Administration Cough Hydromorphone HCl 0.5 mg 02/14/21 21:54 02/28/21 20:15 Hydromorphone 1 Mg/1 Ml Inj IV 0.5 mg Q3H PRN Administration Pain , Severe (7-10) Hydrophilic Ointment 1 applic 02/20/21 09:00 Lip Therapy Vaseline TP DIRECT PRN Dry Lips Insulin Glargine 10 units 02/17/21 22:00 03/01/21 21:43 Insulin Glargine 100 Units/Ml SUB-Q 10 units QHS KARYN Administration Insulin Human Lispro 0 unit 02/17/21 22:00 03/01/21 21:44 Insulin Lispro 100 Unit/Ml SUB-Q 6 unit ACHS KARYN Administration Protocol Insulin Human Regular 7 units 02/22/21 16:30 03/01/21 21:43 Insulin Regular, Human 100 Units/1 Ml SUB-Q 7 units ACHS KARYN Administration Melatonin 5 mg 02/16/21 17:53 02/26/21 03:47 Melatonin 5 Mg Tab PO 5 mg QHS PRN Administration Sleep Metoprolol Tartrate 50 mg 02/19/21 22:00 03/01/21 21:43 Metoprolol Tartrate 50 Mg Tab PO 50 mg BID KARYN Administration Morphine Sulfate 2 mg 02/14/21 21:54 02/26/21 03:48 Morphine 2 Mg/1 Ml Inj IV 2 mg Q4H PRN Administration Pain, Moderate (4-6) Ondansetron HCl 4 mg 02/14/21 21:54 02/28/21 20:14 Ondansetron 4 Mg/2 Ml Inj IV 4 mg Q8H PRN Administration Nausea And Vomiting Simple Syrup 15 ml 02/17/21 12:34 Simple Syrup 15 Ml FEEDTUBE PRN PRN Hypoglycemia Simple Syrup 30 ml 02/17/21 12:34 Simple Syrup 15 Ml FEEDTUBE PRN PRN Hypoglycemia Sodium Bicarbonate 325 mg 02/17/21 12:34 Sodium Bicarbonate 325 Mg Tab FEEDTUBE PRN PRN For Clogged Feeding Tube Sodium Chloride 10 ml 02/14/21 22:00 03/01/21 21:45 Sodium Chloride 0.9% 10 Ml Flush Syringe IV 10 ml BID KARYN Administration Sodium Chloride 10 ml 02/14/21 21:54 Sodium Chloride 0.9% 10 Ml Flush Syringe IV PRN PRN LINE FLUSH Nutrition/Malnutrition Assess - Dietary Evaluation Nutrition/Malnutrition Findings: Nutrition Notes Start: 02/15/21 12:03 Freq: Status: Active Protocol: Document 02/27/21 18:14 GB (Rec: 02/27/21 18:22 GB [id number]) Nutrition Notes Initial or Follow up Reassessment Current Diagnosis Diabetes,Hypertension, Respiratory Failure,Stroke Other Pertinent Diagnosis hyperglycemia, STEMI Current Diet Pureed w/dietary supplements BID Labs/Tests 02/25: BUN 18 Pertinent Medications ferrous sulfate, NaCl/Hep, NaCl, remdesivir Height 5 ft 4 in Weight 91.6 kg Harris Body Weight (kg) 54.54 BMI 34.7 Weight change and time frame 02/14: 104.3 kg 02/26: 91.6 kg change of -12.7kg for -12% loss r/t Respiratory failure complications Weight Status Obese Subjective/Other Information Diet texture Pureed. Per chart: po intake of meals average 50-100%. Adding glucerna BID for additional calories/protein while po intake recovers. Percent of energy/protein needs met: PO intake of meals and supplement 50% or greater will meet 75% or greater of estimated energy needs. Burn Absent Trauma Absent GI Symptoms None Difficulty In Swallowing Food Allergy No Current % PO Good (75-100%) Minimum of two criteria No #2 Nutrition Diagnosis Inadequate energy intake Comments: 02/27: Diet texture Pureed, supplement beverages BID, PO intake 50-100% Etiology DM, collapse As Evidenced by Signs and Symptoms Recent advancement to PO intake with mechanically altered texture diet, NG d/c , need for nutritional supplement beverage to meet estimated energy needs. Diagnosis Progress(for reassessment Resolved documentation) #1 Nutrition Diagnosis Other: (Specify in comment below) Comments: Comprimised PO intake, dependency for enteral feed to meet nutrition needs Etiology DM, collapse, As Evidenced by Signs and Symptoms not able to eat PO at this time, order for TF Diagnosis Progress(for reassessment Resolved documentation) Is patient on ventilator? 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
[2021-03-02] MEDS: INSULIN LISPRO 100 UNIT/ML SUB-Q SCH ×4 (08:43→22:48)
[2021-03-02] MEDS: INSULIN REGULAR, HUMAN 100 UNITS/1 ML SUB-Q SCH ×4 (08:44→22:48)
[2021-03-02] MEDS: ASPIRIN 81 MG TAB CHEW PO SCH (10:15)
[2021-03-02] MEDS: APIXABAN 2.5 MG TAB PO SCH ×2 (10:15→22:46)
[2021-03-02] MEDS: FAMOTIDINE 20 MG TAB PO SCH ×2 (10:16→22:46)
[2021-03-02] MEDS: METOPROLOL TARTRATE 50 MG TAB PO SCH ×2 (10:16→22:45)
[2021-03-02] MEDS: dexAMETHasone 4 MG/ML VIAL IV SCH (10:16)
[2021-03-02] MEDS: CLOPIDOGREL 75 MG TAB PO SCH (10:16)
[2021-03-02] MEDS: FERROUS SULFATE 300 MG (60MG Elemental Iron) / 5 mL ORAL LIQD FEEDTUBE SCH ×2 (10:18→22:47)
[2021-03-02] MEDS: DOCUSATE SODIUM 100 MG CAP PO PRN (10:24)
--- NOTE | 2021-03-02 11:22 | Progress Note ---
Assessment and Plan - Patient Problems (1) STEMI (ST elevation myocardial infarction) Current Visit: Yes Status: Acute Plan to address problem: Status post coronary stent to the distal right coronary artery for acute right coronary embolic occlusion in the setting of acute Covid viral pneumonia. (2) Venous thromboembolism Current Visit: Yes Status: Acute Plan to address problem: Patient also has evidence of venous thromboembolism with thrombus and transition in the right ventricle. In addition to dual oral antiplatelet therapy post right coronary stenting, she is on triple therapy with addition of Eliquis. Subjective Date of service: 03/02/21 Principal diagnosis: Covid-19 Interval history: Patient is comfortable, no new cardiac complaints reported. Objective Vital Signs Temp Pulse Resp BP Pulse Ox 03/02/21 10:16 72 03/02/21 08:53 98 03/02/21 06:35 72 03/02/21 05:23 72 18 156/97 96 03/02/21 04:13 98.2 F 75 18 156/106 90 03/01/21 22:00 100 03/01/21 21:45 100 03/01/21 21:41 69 18 154/83 100 03/01/21 20:58 98.2 F 80 18 153/105 100 03/01/21 16:24 98.2 F 67 22 132/77 100 03/01/21 13:49 98 03/01/21 12:30 98.4 F 63 24 134/84 100 - Physical Examination Narrative exam: Full physical exam is deferred due to acute Covid pneumonia. General: No Apparent Distress - Imaging and Cardiology Echo: other (02/14/2021 Echo - Normal LV and RV systolic function, thrombus in RV)
--- NOTE | 2021-03-02 12:03 | Progress Note ---
Assessment and Plan 55 y/o female with STEMI and acute respiratory failure 03/02/21: Down to 2 liters. Improving. Should consider walk test and discharge vs rehab. Will see PRN 1. Pulm- CXR appears to be more consistent with pulmonary edema and BNP is 4k. Stopped IVF's. Attempted to take of bipap but desats on cannula. Awake and tachypnic. Will give lasix 20mg IV x1 now to see if this helps with oxygen requirement. DO not feel this is infection. 2. Cards-STemi, goal directed therapy and follow up echo, done but not read yet. 3. Endo-elevated blood sugar likely related to acute mI, although patient could have underlying disease given age and weight, suggest checking A1C. 4. Guarded prognosis Subjective Date of service: 03/02/21 Principal diagnosis: Covid-19 Interval history: No acute events. Stable on 2 liters. Objective Vital Signs - 12hr 03/02/21 03/02/21 03/02/21 04:13 05:23 06:35 Temperature 98.2 F Pulse Rate 75 72 72 Respiratory 18 18 Rate Blood Pressure 156/106 156/97 O2 Sat by Pulse 90 96 Oximetry 03/02/21 03/02/21 08:53 10:16 Temperature Pulse Rate 72 Respiratory Rate Blood Pressure O2 Sat by Pulse 98 Oximetry Gastrointestinal: normoactive bowel sounds Integumentary: normal CBC and BMP: 02/28/21 06:13 02/28/21 06:13 ABG, PT/INR, D-dimer: PT/INR, D-dimer PT 14.1 Sec. (12.2-14.9) 02/22/21 15:12 INR 1.03 (0.87-1.13) 02/22/21 15:12 D-Dimer 4275.78 ng/mlDDU (0-234) H 02/20/21 06:39 Abnormal lab findings: Abnormal Labs 02/14/21 02/14/21 02/14/21 20:21 20:21 20:21 WBC 15.6 H RBC 5.55 H Hgb Hct 43.3 H MCV 78 L MCH 26 L MCHC RDW 16.3 H Lymph % (Auto) Person % (Auto) Eos % (Auto) Lymph # (Auto) Eos # (Auto) Seg Neutrophils % Seg Neuts % (Manual) 96.0 H Lymphocytes % (Manual) 3.0 L Seg Neutrophils # Seg Neutrophils # Man 15.0 H Lymphocytes # (Manual) 0.5 L PT 16.7 H INR 1.30 H APTT D-Dimer Heparin Anti-Xa Level Sodium 131 L Potassium 5.1 H Chloride 88.4 L Carbon Dioxide 20 L BUN 34 H Creatinine 1.5 H Glucose 574 H* POC Glucose Magnesium Ferritin AST Lactate Dehydrogenase Troponin T 0.882 H* C-Reactive Protein NT-Pro-B Natriuret Pep Albumin Triglycerides 292 H HDL Cholesterol 23 L Coronavirus (PCR) 02/14/21 02/14/21 02/14/21 20:21 23:11 23:20 WBC RBC Hgb Hct MCV MCH MCHC RDW Lymph % (Auto) Person % (Auto) Eos % (Auto) Lymph # (Auto) Eos # (Auto) Seg Neutrophils % Seg Neuts % (Manual) Lymphocytes % (Manual) Seg Neutrophils # Seg Neutrophils # Man Lymphocytes # (Manual) PT INR APTT D-Dimer Heparin Anti-Xa Level Sodium Potassium Chloride Carbon Dioxide BUN Creatinine Glucose POC Glucose 562 H 422 H Magnesium Ferritin AST Lactate Dehydrogenase Troponin T 0.892 H* C-Reactive Protein NT-Pro-B Natriuret Pep Albumin Triglycerides HDL Cholesterol Coronavirus (PCR) 02/15/21 02/15/21 02/15/21 03:55 03:55 05:29 WBC RBC 5.17 H Hgb Hct MCV 77 L MCH 26 L MCHC RDW 15.8 H Lymph % (Auto) 4.9 L Person % (Auto) Eos % (Auto) Lymph # (Auto) 0.5 L Eos # (Auto) Seg Neutrophils % 89.2 H Seg Neuts % (Manual) Lymphocytes % (Manual) Seg Neutrophils # 8.4 H Seg Neutrophils # Man Lymphocytes # (Manual) PT INR APTT D-Dimer Heparin Anti-Xa Level Sodium 136 L Potassium Chloride 97.3 L Carbon Dioxide 18 L BUN 33 H Creatinine Glucose 402 H POC Glucose 345 H Magnesium Ferritin AST 46 H Lactate Dehydrogenase Troponin T 0.992 H* C-Reactive Protein NT-Pro-B Natriuret Pep Albumin 3.0 L Triglycerides HDL Cholesterol Coronavirus (PCR) 02/15/21 02/15/21 02/15/21 08:38 08:38 08:38 WBC RBC Hgb Hct MCV 75 L MCH 26 L MCHC 35 H RDW 16.2 H Lymph % (Auto) Person % (Auto) Eos % (Auto) Lymph # (Auto) Eos # (Auto) Seg Neutrophils % Seg Neuts % (Manual) Lymphocytes % (Manual) Seg Neutrophils # Seg Neutrophils # Man Lymphocytes # (Manual) PT INR APTT D-Dimer Heparin Anti-Xa Level Sodium 135 L Potassium Chloride Carbon Dioxide 19 L BUN 31 H Creatinine Glucose 360 H POC Glucose Magnesium 2.50 H Ferritin AST Lactate Dehydrogenase Troponin T C-Reactive Protein NT-Pro-B Natriuret Pep 4086 H Albumin Triglycerides HDL Cholesterol Coronavirus (PCR) 02/15/21 02/15/21 02/15/21 11:15 17:28 18:20 WBC RBC Hgb Hct MCV MCH MCHC RDW Lymph % (Auto) Person % (Auto) Eos % (Auto) Lymph # (Auto) Eos # (Auto) Seg Neutrophils % Seg Neuts % (Manual) Lymphocytes % (Manual) Seg Neutrophils # Seg Neutrophils # Man Lymphocytes # (Manual) PT INR APTT D-Dimer > 74521 H Heparin Anti-Xa Level Sodium Potassium Chloride Carbon Dioxide BUN Creatinine Glucose POC Glucose 317 H 311 H Magnesium Ferritin AST Lactate Dehydrogenase Troponin T C-Reactive Protein NT-Pro-B Natriuret Pep Albumin Triglycerides HDL Cholesterol Coronavirus (PCR) 02/15/21 02/15/21 02/15/21 18:20 18:20 18:20 WBC RBC Hgb Hct MCV MCH MCHC RDW Lymph % (Auto) Person % (Auto) Eos % (Auto) Lymph # (Auto) Eos # (Auto) Seg Neutrophils % Seg Neuts % (Manual) Lymphocytes % (Manual) Seg Neutrophils # Seg Neutrophils # Man Lymphocytes # (Manual) PT 15.8 H INR 1.20 H APTT D-Dimer Heparin Anti-Xa Level Sodium Potassium Chloride Carbon Dioxide BUN Creatinine Glucose POC Glucose Magnesium Ferritin 837.7 H AST Lactate Dehydrogenase 766 H Troponin T C-Reactive Protein 21.50 H NT-Pro-B Natriuret Pep Albumin Triglycerides HDL Cholesterol Coronavirus (PCR) 02/15/21 02/16/21 02/16/21 23:45 02:44 02:44 WBC RBC Hgb Hct MCV 77 L MCH 26 L MCHC RDW 16.0 H Lymph % (Auto) Person % (Auto) Eos % (Auto) Lymph # (Auto) Eos # (Auto) Seg Neutrophils % Seg Neuts % (Manual) Lymphocytes % (Manual) Seg Neutrophils # Seg Neutrophils # Man Lymphocytes # (Manual) PT INR APTT D-Dimer Heparin Anti-Xa Level Sodium Potassium Chloride Carbon Dioxide BUN 27 H Creatinine Glucose 269 H POC Glucose 203 H Magnesium Ferritin AST Lactate Dehydrogenase Troponin T C-Reactive Protein NT-Pro-B Natriuret Pep Albumin Triglycerides HDL Cholesterol Coronavirus (PCR) 02/16/21 02/16/21 02/16/21 05:47 11:50 15:00 WBC RBC Hgb Hct MCV MCH MCHC RDW Lymph % (Auto) Person % (Auto) Eos % (Auto) Lymph # (Auto) Eos # (Auto) Seg Neutrophils % Seg Neuts % (Manual) Lymphocytes % (Manual) Seg Neutrophils # Seg Neutrophils # Man Lymphocytes # (Manual) PT INR APTT D-Dimer Heparin Anti-Xa Level < 0.10 L Sodium Potassium Chloride Carbon Dioxide BUN Creatinine Glucose POC Glucose 275 H 251 H Magnesium Ferritin AST Lactate Dehydrogenase Troponin T C-Reactive Protein NT-Pro-B Natriuret Pep Albumin Triglycerides HDL Cholesterol Coronavirus (PCR) 02/16/21 02/16/21 02/16/21 18:23 23:30 23:57 WBC RBC Hgb Hct MCV MCH MCHC RDW Lymph % (Auto) Person % (Auto) Eos % (Auto) Lymph # (Auto) Eos # (Auto) Seg Neutrophils % Seg Neuts % (Manual) Lymphocytes % (Manual) Seg Neutrophils # Seg Neutrophils # Man Lymphocytes # (Manual) PT INR APTT D-Dimer Heparin Anti-Xa Level < 0.10 L Sodium Potassium Chloride Carbon Dioxide BUN Creatinine Glucose POC Glucose 237 H 249 H Magnesium Ferritin AST Lactate Dehydrogenase Troponin T C-Reactive Protein NT-Pro-B Natriuret Pep Albumin Triglycerides HDL Cholesterol Coronavirus (PCR) 02/16/21 02/17/21 02/17/21 Unknown 05:25 06:18 WBC RBC Hgb Hct MCV MCH MCHC RDW Lymph % (Auto) Person % (Auto) Eos % (Auto) Lymph # (Auto) Eos # (Auto) Seg Neutrophils % Seg Neuts % (Manual) Lymphocytes % (Manual) Seg Neutrophils # Seg Neutrophils # Man Lymphocytes # (Manual) PT INR APTT D-Dimer Heparin Anti-Xa Level Sodium Potassium Chloride Carbon Dioxide BUN Creatinine Glucose POC Glucose 238 H 229 H Magnesium Ferritin AST Lactate Dehydrogenase Troponin T C-Reactive Protein NT-Pro-B Natriuret Pep Albumin Triglycerides HDL Cholesterol Coronavirus (PCR) Positive A 02/17/21 02/17/21 02/17/21 11:35 13:30 13:30 WBC RBC Hgb Hct MCV MCH MCHC RDW Lymph % (Auto) Person % (Auto) Eos % (Auto) Lymph # (Auto) Eos # (Auto) Seg Neutrophils % Seg Neuts % (Manual) Lymphocytes % (Manual) Seg Neutrophils # Seg Neutrophils # Man Lymphocytes # (Manual) PT INR APTT D-Dimer Heparin Anti-Xa Level 0.29 L Sodium 146 H D Potassium Chloride 107.3 H Carbon Dioxide BUN 29 H Creatinine Glucose 334 H POC Glucose 279 H Magnesium Ferritin AST Lactate Dehydrogenase Troponin T C-Reactive Protein NT-Pro-B Natriuret Pep Albumin Triglycerides HDL Cholesterol Coronavirus (PCR) 02/17/21 02/17/21 02/17/21 13:30 13:30 16:42 WBC RBC Hgb Hct MCV 77 L MCH 25 L MCHC RDW 16.1 H Lymph % (Auto) Person % (Auto) Eos % (Auto) Lymph # (Auto) Eos # (Auto) Seg Neutrophils % Seg Neuts % (Manual) Lymphocytes % (Manual) Seg Neutrophils # Seg Neutrophils # Man Lymphocytes # (Manual) PT INR APTT D-Dimer Heparin Anti-Xa Level Sodium 146 H Potassium Chloride Carbon Dioxide BUN 29 H Creatinine Glucose 340 H POC Glucose 291 H Magnesium Ferritin AST Lactate Dehydrogenase Troponin T C-Reactive Protein NT-Pro-B Natriuret Pep Albumin 2.7 L Triglycerides HDL Cholesterol Coronavirus (PCR) 02/17/21 02/18/21 02/18/21 21:43 04:40 04:40 WBC RBC Hgb Hct MCV 78 L MCH 26 L MCHC RDW 16.3 H Lymph % (Auto) Person % (Auto) Eos % (Auto) Lymph # (Auto) Eos # (Auto) Seg Neutrophils % Seg Neuts % (Manual) Lymphocytes % (Manual) Seg Neutrophils # Seg Neutrophils # Man Lymphocytes # (Manual) PT INR APTT D-Dimer Heparin Anti-Xa Level Sodium 149 H Potassium Chloride 108.9 H Carbon Dioxide BUN 34 H Creatinine Glucose 318 H POC Glucose 288 H Magnesium Ferritin AST Lactate Dehydrogenase Troponin T C-Reactive Protein 14.50 H NT-Pro-B Natriuret Pep Albumin 3.0 L Triglycerides HDL Cholesterol Coronavirus (PCR) 02/18/21 02/18/21 02/18/21 04:40 08:02 11:30 WBC RBC Hgb Hct MCV MCH MCHC RDW Lymph % (Auto) Person % (Auto) Eos % (Auto) Lymph # (Auto) Eos # (Auto) Seg Neutrophils % Seg Neuts % (Manual) Lymphocytes % (Manual) Seg Neutrophils # Seg Neutrophils # Man Lymphocytes # (Manual) PT INR APTT D-Dimer 3846.94 H Heparin Anti-Xa Level Sodium Potassium Chloride Carbon Dioxide BUN Creatinine Glucose POC Glucose 263 H 309 H Magnesium Ferritin AST Lactate Dehydrogenase Troponin T C-Reactive Protein NT-Pro-B Natriuret Pep Albumin Triglycerides HDL Cholesterol Coronavirus (PCR) 02/18/21 02/18/21 02/18/21 12:29 21:56 22:34 WBC RBC Hgb Hct MCV MCH MCHC RDW Lymph % (Auto) Person % (Auto) Eos % (Auto) Lymph # (Auto) Eos # (Auto) Seg Neutrophils % Seg Neuts % (Manual) Lymphocytes % (Manual) Seg Neutrophils # Seg Neutrophils # Man Lymphocytes # (Manual) PT INR APTT D-Dimer Heparin Anti-Xa Level 0.29 L Sodium Potassium Chloride Carbon Dioxide BUN Creatinine Glucose POC Glucose 313 H 284 H Magnesium Ferritin AST Lactate Dehydrogenase Troponin T C-Reactive Protein NT-Pro-B Natriuret Pep Albumin Triglycerides HDL Cholesterol Coronavirus (PCR) 02/18/21 02/19/21 02/19/21 23:52 06:11 07:54 WBC RBC Hgb Hct MCV MCH MCHC RDW Lymph % (Auto) Person % (Auto) Eos % (Auto) Lymph # (Auto) Eos # (Auto) Seg Neutrophils % Seg Neuts % (Manual) Lymphocytes % (Manual) Seg Neutrophils # Seg Neutrophils # Man Lymphocytes # (Manual) PT INR APTT D-Dimer Heparin Anti-Xa Level Sodium 151 H Potassium Chloride 110.6 H Carbon Dioxide BUN 28 H Creatinine Glucose 191 H POC Glucose 272 H 155 H Magnesium Ferritin AST Lactate Dehydrogenase Troponin T C-Reactive Protein NT-Pro-B Natriuret Pep Albumin 3.0 L Triglycerides HDL Cholesterol Coronavirus (PCR) 02/19/21 02/19/21 02/19/21 12:37 16:29 21:28 WBC RBC Hgb Hct MCV MCH MCHC RDW Lymph % (Auto) Person % (Auto) Eos % (Auto) Lymph # (Auto) Eos # (Auto) Seg Neutrophils % Seg Neuts % (Manual) Lymphocytes % (Manual) Seg Neutrophils # Seg Neutrophils # Man Lymphocytes # (Manual) PT INR APTT D-Dimer Heparin Anti-Xa Level Sodium Potassium Chloride Carbon Dioxide BUN Creatinine Glucose POC Glucose 233 H 268 H 298 H Magnesium Ferritin AST Lactate Dehydrogenase Troponin T C-Reactive Protein NT-Pro-B Natriuret Pep Albumin Triglycerides HDL Cholesterol Coronavirus (PCR) 02/19/21 02/20/21 02/20/21 23:34 06:39 06:39 WBC RBC 5.08 H Hgb Hct MCV 77 L MCH 25 L MCHC RDW 16.0 H Lymph % (Auto) Person % (Auto) Eos % (Auto) Lymph # (Auto) Eos # (Auto) Seg Neutrophils % Seg Neuts % (Manual) 88.0 H Lymphocytes % (Manual) 4.0 L Seg Neutrophils # Seg Neutrophils # Man Lymphocytes # (Manual) 0.2 L PT INR APTT D-Dimer 4275.78 H Heparin Anti-Xa Level 0.26 L Sodium Potassium Chloride Carbon Dioxide BUN Creatinine Glucose POC Glucose Magnesium Ferritin AST Lactate Dehydrogenase Troponin T C-Reactive Protein NT-Pro-B Natriuret Pep Albumin Triglycerides HDL Cholesterol Coronavirus (PCR) 02/20/21 02/20/21 02/20/21 06:39 06:39 08:45 WBC RBC Hgb Hct MCV MCH MCHC RDW Lymph % (Auto) Person % (Auto) Eos % (Auto) Lymph # (Auto) Eos # (Auto) Seg Neutrophils % Seg Neuts % (Manual) Lymphocytes % (Manual) Seg Neutrophils # Seg Neutrophils # Man Lymphocytes # (Manual) PT INR APTT D-Dimer Heparin Anti-Xa Level Sodium 152 H 151 H Potassium Chloride 112.0 H 111.4 H Carbon Dioxide 31 H BUN 23 H 23 H Creatinine Glucose 119 H 140 H POC Glucose Magnesium Ferritin 915.5 H AST Lactate Dehydrogenase 645 H Troponin T C-Reactive Protein 3.60 H NT-Pro-B Natriuret Pep Albumin 3.1 L Triglycerides HDL Cholesterol Coronavirus (PCR) 02/20/21 02/20/21 02/20/21 11:57 18:01 22:20 WBC RBC Hgb Hct MCV MCH MCHC RDW Lymph % (Auto) Person % (Auto) Eos % (Auto) Lymph # (Auto) Eos # (Auto) Seg Neutrophils % Seg Neuts % (Manual) Lymphocytes % (Manual) Seg Neutrophils # Seg Neutrophils # Man Lymphocytes # (Manual) PT INR APTT D-Dimer Heparin Anti-Xa Level Sodium Potassium Chloride Carbon Dioxide BUN Creatinine Glucose POC Glucose 217 H 337 H 379 H Magnesium Ferritin AST Lactate Dehydrogenase Troponin T C-Reactive Protein NT-Pro-B Natriuret Pep Albumin Triglycerides HDL Cholesterol Coronavirus (PCR) 02/21/21 02/21/21 02/21/21 07:43 11:42 16:30 WBC RBC Hgb Hct MCV MCH MCHC RDW Lymph % (Auto) Person % (Auto) Eos % (Auto) Lymph # (Auto) Eos # (Auto) Seg Neutrophils % Seg Neuts % (Manual) Lymphocytes % (Manual) Seg Neutrophils # Seg Neutrophils # Man Lymphocytes # (Manual) PT INR APTT D-Dimer Heparin Anti-Xa Level Sodium Potassium Chloride Carbon Dioxide BUN Creatinine Glucose POC Glucose 152 H 206 H 235 H Magnesium Ferritin AST Lactate Dehydrogenase Troponin T C-Reactive Protein NT-Pro-B Natriuret Pep Albumin Triglycerides HDL Cholesterol Coronavirus (PCR) 02/21/21 02/22/21 02/22/21 21:56 05:51 06:50 WBC RBC Hgb Hct MCV MCH MCHC RDW Lymph % (Auto) Person % (Auto) Eos % (Auto) Lymph # (Auto) Eos # (Auto) Seg Neutrophils % Seg Neuts % (Manual) Lymphocytes % (Manual) Seg Neutrophils # Seg Neutrophils # Man Lymphocytes # (Manual) PT INR APTT D-Dimer Heparin Anti-Xa Level Sodium Potassium 3.5 L Chloride Carbon Dioxide 31 H BUN 19 H Creatinine Glucose 118 H POC Glucose 205 H 121 H Magnesium Ferritin AST Lactate Dehydrogenase Troponin T C-Reactive Protein NT-Pro-B Natriuret Pep Albumin Triglycerides HDL Cholesterol Coronavirus (PCR) 02/22/21 02/22/21 02/22/21 07:55 11:47 15:12 WBC RBC Hgb Hct MCV 76 L MCH 26 L MCHC RDW Lymph % (Auto) Person % (Auto) Eos % (Auto) Lymph # (Auto) Eos # (Auto) Seg Neutrophils % Seg Neuts % (Manual) Lymphocytes % (Manual) Seg Neutrophils # Seg Neutrophils # Man Lymphocytes # (Manual) PT INR APTT D-Dimer Heparin Anti-Xa Level Sodium Potassium Chloride Carbon Dioxide BUN Creatinine Glucose POC Glucose 148 H 216 H Magnesium Ferritin AST Lactate Dehydrogenase Troponin T C-Reactive Protein NT-Pro-B Natriuret Pep Albumin Triglycerides HDL Cholesterol Coronavirus (PCR) 02/22/21 02/22/21 02/22/21 15:12 17:55 22:01 WBC RBC Hgb Hct MCV MCH MCHC RDW Lymph % (Auto) Person % (Auto) Eos % (Auto) Lymph # (Auto) Eos # (Auto) Seg Neutrophils % Seg Neuts % (Manual) Lymphocytes % (Manual) Seg Neutrophils # Seg Neutrophils # Man Lymphocytes # (Manual) PT INR APTT 50.0 H D-Dimer Heparin Anti-Xa Level Sodium Potassium Chloride Carbon Dioxide BUN Creatinine Glucose POC Glucose 327 H 173 H Magnesium Ferritin AST Lactate Dehydrogenase Troponin T C-Reactive Protein NT-Pro-B Natriuret Pep Albumin Triglycerides HDL Cholesterol Coronavirus (PCR) 02/23/21 02/23/21 02/23/21 07:36 10:32 15:49 WBC RBC Hgb Hct MCV MCH MCHC RDW Lymph % (Auto) Person % (Auto) Eos % (Auto) Lymph # (Auto) Eos # (Auto) Seg Neutrophils % Seg Neuts % (Manual) Lymphocytes % (Manual) Seg Neutrophils # Seg Neutrophils # Man Lymphocytes # (Manual) PT INR APTT D-Dimer Heparin Anti-Xa Level Sodium Potassium Chloride Carbon Dioxide BUN Creatinine Glucose POC Glucose 149 H 240 H 338 H Magnesium Ferritin AST Lactate Dehydrogenase Troponin T C-Reactive Protein NT-Pro-B Natriuret Pep Albumin Triglycerides HDL Cholesterol Coronavirus (PCR) 02/23/21 02/24/21 02/24/21 21:20 05:42 07:45 WBC RBC 5.26 H Hgb Hct MCV 77 L MCH 25 L MCHC RDW Lymph % (Auto) Person % (Auto) Eos % (Auto) Lymph # (Auto) Eos # (Auto) Seg Neutrophils % Seg Neuts % (Manual) Lymphocytes % (Manual) Seg Neutrophils # Seg Neutrophils # Man Lymphocytes # (Manual) PT INR APTT D-Dimer Heparin Anti-Xa Level Sodium Potassium Chloride Carbon Dioxide BUN Creatinine Glucose POC Glucose 311 H 118 H Magnesium Ferritin AST Lactate Dehydrogenase Troponin T C-Reactive Protein NT-Pro-B Natriuret Pep Albumin Triglycerides HDL Cholesterol Coronavirus (PCR) 02/24/21 02/24/21 02/24/21 12:28 16:27 22:20 WBC RBC Hgb Hct MCV MCH MCHC RDW Lymph % (Auto) Person % (Auto) Eos % (Auto) Lymph # (Auto) Eos # (Auto) Seg Neutrophils % Seg Neuts % (Manual) Lymphocytes % (Manual) Seg Neutrophils # Seg Neutrophils # Man Lymphocytes # (Manual) PT INR APTT D-Dimer Heparin Anti-Xa Level Sodium Potassium Chloride Carbon Dioxide BUN Creatinine Glucose POC Glucose 240 H 446 H 246 H Magnesium Ferritin AST Lactate Dehydrogenase Troponin T C-Reactive Protein NT-Pro-B Natriuret Pep Albumin Triglycerides HDL Cholesterol Coronavirus (PCR) 02/25/21 02/25/21 02/25/21 05:58 05:58 12:24 WBC RBC 5.72 H Hgb 14.5 H Hct 44.0 H MCV 77 L MCH 25 L MCHC RDW 15.5 H Lymph % (Auto) Person % (Auto) 7.6 H Eos % (Auto) Lymph # (Auto) Eos # (Auto) Seg Neutrophils % 71.3 H Seg Neuts % (Manual) Lymphocytes % (Manual) Seg Neutrophils # Seg Neutrophils # Man Lymphocytes # (Manual) PT INR APTT D-Dimer Heparin Anti-Xa Level Sodium Potassium Chloride Carbon Dioxide BUN 18 H Creatinine Glucose POC Glucose 248 H Magnesium Ferritin AST Lactate Dehydrogenase Troponin T C-Reactive Protein NT-Pro-B Natriuret Pep Albumin Triglycerides HDL Cholesterol Coronavirus (PCR) 02/25/21 02/25/21 02/26/21 17:06 21:25 07:48 WBC RBC 5.24 H Hgb Hct MCV 78 L MCH 26 L MCHC RDW 15.5 H Lymph % (Auto) Person % (Auto) Eos % (Auto) Lymph # (Auto) Eos # (Auto) Seg Neutrophils % Seg Neuts % (Manual) Lymphocytes % (Manual) Seg Neutrophils # Seg Neutrophils # Man Lymphocytes # (Manual) PT INR APTT D-Dimer Heparin Anti-Xa Level Sodium Potassium Chloride Carbon Dioxide BUN Creatinine Glucose POC Glucose 335 H 256 H Magnesium Ferritin AST Lactate Dehydrogenase Troponin T C-Reactive Protein NT-Pro-B Natriuret Pep Albumin Triglycerides HDL Cholesterol Coronavirus (PCR) 02/26/21 02/26/21 02/26/21 11:15 18:02 21:50 WBC RBC Hgb Hct MCV MCH MCHC RDW Lymph % (Auto) Person % (Auto) Eos % (Auto) Lymph # (Auto) Eos # (Auto) Seg Neutrophils % Seg Neuts % (Manual) Lymphocytes % (Manual) Seg Neutrophils # Seg Neutrophils # Man Lymphocytes # (Manual) PT INR APTT D-Dimer Heparin Anti-Xa Level Sodium Potassium Chloride Carbon Dioxide BUN Creatinine Glucose POC Glucose 224 H 296 H 259 H Magnesium Ferritin AST Lactate Dehydrogenase Troponin T C-Reactive Protein NT-Pro-B Natriuret Pep Albumin Triglycerides HDL Cholesterol Coronavirus (PCR) 02/27/21 02/27/21 02/27/21 11:47 17:33 21:42 WBC RBC Hgb Hct MCV MCH MCHC RDW Lymph % (Auto) Person % (Auto) Eos % (Auto) Lymph # (Auto) Eos # (Auto) Seg Neutrophils % Seg Neuts % (Manual) Lymphocytes % (Manual) Seg Neutrophils # Seg Neutrophils # Man Lymphocytes # (Manual) PT INR APTT D-Dimer Heparin Anti-Xa Level Sodium Potassium Chloride Carbon Dioxide BUN Creatinine Glucose POC Glucose 188 H 285 H 268 H Magnesium Ferritin AST Lactate Dehydrogenase Troponin T C-Reactive Protein NT-Pro-B Natriuret Pep Albumin Triglycerides HDL Cholesterol Coronavirus (PCR) 02/28/21 02/28/21 02/28/21 06:13 06:13 07:49 WBC 3.6 L RBC 5.14 H Hgb Hct MCV 78 L MCH 26 L MCHC RDW 16.0 H Lymph % (Auto) Person % (Auto) 10.3 H Eos % (Auto) 13.7 H Lymph # (Auto) 0.9 L Eos # (Auto) 0.5 H Seg Neutrophils % Seg Neuts % (Manual) Lymphocytes % (Manual) Seg Neutrophils # Seg Neutrophils # Man Lymphocytes # (Manual) PT INR APTT D-Dimer Heparin Anti-Xa Level Sodium Potassium Chloride Carbon Dioxide BUN Creatinine Glucose 166 H POC Glucose 150 H Magnesium Ferritin AST Lactate Dehydrogenase Troponin T C-Reactive Protein NT-Pro-B Natriuret Pep Albumin Triglycerides HDL Cholesterol Coronavirus (PCR) 02/28/21 02/28/21 02/28/21 11:20 15:40 21:42 WBC RBC Hgb Hct MCV MCH MCHC RDW Lymph % (Auto) Person % (Auto) Eos % (Auto) Lymph # (Auto) Eos # (Auto) Seg Neutrophils % Seg Neuts % (Manual) Lymphocytes % (Manual) Seg Neutrophils # Seg Neutrophils # Man Lymphocytes # (Manual) PT INR APTT D-Dimer Heparin Anti-Xa Level Sodium Potassium Chloride Carbon Dioxide BUN Creatinine Glucose POC Glucose 235 H 253 H 280 H Magnesium Ferritin AST Lactate Dehydrogenase Troponin T C-Reactive Protein NT-Pro-B Natriuret Pep Albumin Triglycerides HDL Cholesterol Coronavirus (PCR) 03/01/21 03/01/21 03/01/21 07:25 12:28 16:22 WBC RBC Hgb Hct MCV MCH MCHC RDW Lymph % (Auto) Person % (Auto) Eos % (Auto) Lymph # (Auto) Eos # (Auto) Seg Neutrophils % Seg Neuts % (Manual) Lymphocytes % (Manual) Seg Neutrophils # Seg Neutrophils # Man Lymphocytes # (Manual) PT INR APTT D-Dimer Heparin Anti-Xa Level Sodium Potassium Chloride Carbon Dioxide BUN Creatinine Glucose POC Glucose 155 H 204 H 292 H Magnesium Ferritin AST Lactate Dehydrogenase Troponin T C-Reactive Protein NT-Pro-B Natriuret Pep Albumin Triglycerides HDL Cholesterol Coronavirus (PCR) 03/01/21 03/02/21 21:01 08:31 WBC RBC Hgb Hct MCV MCH MCHC RDW Lymph % (Auto) Person % (Auto) Eos % (Auto) Lymph # (Auto) Eos # (Auto) Seg Neutrophils % Seg Neuts % (Manual) Lymphocytes % (Manual) Seg Neutrophils # Seg Neutrophils # Man Lymphocytes # (Manual) PT INR APTT D-Dimer Heparin Anti-Xa Level Sodium Potassium Chloride Carbon Dioxide BUN Creatinine Glucose POC Glucose 281 H 107 H Magnesium Ferritin AST Lactate Dehydrogenase Troponin T C-Reactive Protein NT-Pro-B Natriuret Pep Albumin Triglycerides HDL Cholesterol Coronavirus (PCR)
[2021-03-02] MEDS: POLYETHYLENE GLYCOL 3350 17 GM POWDER PO SCH (13:43)
[2021-03-02] MEDS: amLODIPine 5 MG TAB PO SCH (13:43)
[2021-03-02] MEDS: MELATONIN 5 MG TAB PO PRN (22:44)
[2021-03-02] MEDS: guaiFENesin 100 MG/5 ML ORAL LIQD PO PRN (22:47)
[2021-03-02] MEDS: INSULIN GLARGINE 100 UNITS/ML SUB-Q SCH (22:47)
[2021-03-03] MEDS: INSULIN REGULAR, HUMAN 100 UNITS/1 ML SUB-Q SCH ×4 (08:59→22:23)
[2021-03-03] MEDS: INSULIN LISPRO 100 UNIT/ML SUB-Q SCH ×4 (08:59→22:11)
[2021-03-03] MEDS: CLOPIDOGREL 75 MG TAB PO SCH (09:38)
[2021-03-03] MEDS: APIXABAN 2.5 MG TAB PO SCH ×2 (09:38→22:21)
[2021-03-03] MEDS: ASPIRIN 81 MG TAB CHEW PO SCH (09:38)
[2021-03-03] MEDS: amLODIPine 5 MG TAB PO SCH (09:38)
[2021-03-03] MEDS: FAMOTIDINE 20 MG TAB PO SCH ×2 (09:38→22:22)
[2021-03-03] MEDS: METOPROLOL TARTRATE 50 MG TAB PO SCH ×2 (09:38→22:22)
[2021-03-03] MEDS: FERROUS SULFATE 300 MG (60MG Elemental Iron) / 5 mL ORAL LIQD FEEDTUBE SCH ×2 (09:40→22:23)
--- NOTE | 2021-03-03 10:18 | Progress Note ---
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 RV thrombus Echocardiogram showed a mobile mass in the right ventricle, suggestive of venous thromboembolism in transition Acute CVA COVID-19 pneumonia Respiratory failure Diabetes Hypertension Continue triple therapy with plavix, aspirin, and low dose eliquis for treatment of venous thromboembolism in addition to her occlusive coronary thrombus requiring drug-eluting stent placement. Otherwise, conservative cardiac management. Subjective Date of service: 03/03/21 Principal diagnosis: Covid-19 Interval history: Patient has no complaints. No distress noted. Objective Vital Signs Temp Pulse Resp BP Pulse Ox 03/03/21 10:00 96 03/03/21 04:49 98.6 F 64 20 148/81 95 03/02/21 22:54 98.5 F 76 22 166/89 94 03/02/21 22:45 88 03/02/21 22:00 94 03/02/21 17:11 126/73 03/02/21 13:51 67 97 03/02/21 13:50 97.9 F 69 19 141/81 96 03/02/21 13:43 72 03/02/21 13:16 69 95 - Physical Examination Narrative exam: Deferred due to isolation protocol. General: No Apparent Distress Neck: Positive: trachea midline. Negative: JVD/HJR Cardiac: Positive: Reg Rate and Rhythm Neuro: Positive: Other (Left hemiparesis) - Imaging and Cardiology Echo: other (02/14/2021 Echo - Normal LV and RV systolic function, thrombus in RV)
--- NOTE | 2021-03-03 13:04 | Progress Note ---
Assessment and Plan Assessment and plan: Assessment and plan: 55-year-old female with PmHx of HTN, uterine fibroids and ex-smoker admitted for acute right MCA CVA and STEMI s/p PCI in RCA, now with acute respiratory di stress requiring continuous Bipap. 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 Ventricle Thrombus Acute hypoxic respiratory secondary to COVID COVID-19 Pneumonia Dysphagia Acute kidney injury Sepsis 2/2 bilateral PNA, COVID PNA Anemia Hyperglycemia Hospital Course to date: 02/16/21- Patient AAOX4, with slurred speech and Lt. sided weakness. MRI/MRA brain pending. Remains on continuous Bipap, failed optiflow trial overnight. Bilateral infiltrate noted on today CXR additional lasix was adminstered to optimize Respiratory status, However was D/C due to marginal BP concern for Hypoperfusion. Will reassess in the Am. Plan to wean off Bipap as tolerated. Patient has been NPO due to continuous Bipap. When patient is off bipap nurse to complete bedside swallow screen, if fail will place NGT so pateint can received PO meds. Low grade temp today, TMAX 101.2 in last 24hrs, Bcult pending, on IV abx, ceftriaxone and azithromycin. COVID swab result pending, ID on the case rec to start dexamethasone 6 mg IV/p.o. daily for 10 days. 02/17/21- COVID PCR can back possible, patient was already on Rocephin and azithromaci, added Remdesevir per protocol, and IV decadron was initiated. Patient was wean to heated high flow, currently on 70% FiO2 and 40L. Wean O2 sup plement as tolerated for a SPO2b goal above 88%. Persistent hyperglycemia, lantus increased to 10 units. Speech eval completed, patient pass swallow, order placed for pureed diet with thin liquid. Will continue to monitor, Heparing gtt per protocol, Am labs ordered. 02/18/21-blood sugars this morning over 300. Ordered 10 units of IV insulin once. Added 5 units scheduled insulin in addition to sliding scale insulin. Diet change to diabetic diet. 02/19/21: Transfer to floor. NG tube d/c. 02/20/21: Will get speech therapy to re-evaluate patient to see if patient can b e escalated from pureed diet. Cardiology recommendations noted, BB is increased. Continue supportive management for covid 19 pneumonia. HFNC currently at 35 l/min/fio2=60%. Ok with sats > 88%. Attempted to call Durga but voicemail was to another person in chart. Will attempt to find another number to update . 02/21/2021. Patient currently with 35 L of oxygen with an FiO2 of 70%. Continue statin therapy, beta blockers, and DAPT with plavix and aspirin per cardiology recommendation. Continue intravenous heparin, ultimately will be transitioned to long-term warfarin therapy or a NOAC. 02/22/2021. Patient's oxygen requirement has been decreased to 30 L/min via HFNC with FiO2 50%. Continue per ID and pulmonary recommendations. Patient received Actemra 02/17/2021. Complete remdesivir x5 days. Complete dexamethasone IV for 10 days. Cardiology also recommends continued statin therapy, beta-blockers and DAPT with Plavix and aspirin. Continue IV heparin and transition to long-term warfarin or NOAC per cardiology 02/23/2021. Chest x-ray from yesterday is unchanged. Patient currently on high flow nasal cannula 30 L/min with FiO2 35%. Continue per ID and pulmonary recommendations. Patient received Actemra 02/17/2021. Complete remdesivir x5 days. Complete dexamethasone IV for 10 days. Cardiology also recommends continued statin therapy, beta-blockers and DAPT with Plavix and aspirin. Continue IV heparin and transition to long-term warfarin or NOAC per cardiology 02/24/2021. Patient remains on high flow nasal cannula 30 L O2 with FiO2 35%. Patient will complete dexamethasone on 02/26/2021. Patient is s/p remdesivir and Actemra. Continue prone positioning as able. Continue statin therapy, beta- blockers and DAPT with Plavix and aspirin. Continue IV heparin and transition to long-term warfarin or NOAC per cardiology 02/25/2021. Patient on high flow nasal cannula with 15 L and FiO2 of 30%. Continue dexamethasone until tomorrow. Patient is s/p remdesivir and Actemra. Continue prone positioning as able. Continue statin therapy, beta-blockers and DAPT with Plavix and aspirin. Continue IV heparin and transition to long-term warfarin or NOAC per cardiology 02/26/2021. Patient on high flow nasal cannula with 15 L and FiO2 of 30%. Continue dexamethasone for total of 14 days per pulmonary recommendations. Patient is s/p remdesivir and Actemra. Continue prone positioning as able. Continue statin therapy, beta-blockers and DAPT with Plavix and aspirin. Continue IV heparin and transition to long-term warfarin or NOAC per cardiology 02/27/2021. Patient on high flow nasal cannula with 15 L and FiO2 of 25%. Continue dexamethasone for total of 14 days per pulmonary recommendations. Resume dexamethasone 10 mg IV daily for 4 more days. Patient is s/p remdesivir and Actemra. Continue prone positioning as able. Continue statin therapy, beta-blockers and DAPT with Plavix and aspirin. Cardiology initiated anticoagulation with Eliquis. 02/28/21 Patient with Covid-19 She is on Oxygen at 11 l/min, down from 15 l/min yesterday. 03/01/21 Patient with Covid-19 with acute respiratory failure. She is on Oxygen at 4 l/min, down from 11 l/min yesterday. She has been on high flow oxygen previously. Hopefully dc home in few days. To check ambulatory pulse ox prior to discharge. 03/02/21 acute hypoxic respiratory failure COVID-19 pneumonia has improved. She is down to 2 L oxygen by nasal cannula. Blood glucose is uncontrolled. Will increase lantus to 15 units sc qhs. Continue dexamethasone for COVID-19. BP is uncontrolled and will start Norvasc 5 mg p.o. daily. Continue current dose of beta-silas. Continue ASA, plavix and eliquis. Had initial elevated d-dimer, will recheck d-dimer. Complains of constipation and will start daily MiraLAX, continue as needed Colace 03/03/2021. Patient's blood glucose has improved today. She has completed dexamethasone and insulin dose may need to be decreased. HbA1c ordered since admission is pending and has been reordered today. Possible new diagnosis of diabetes mellitus type 2. Blood pressure is acceptable. Still on 2 L oxygen by nasal cannula, may need to be discharged with home oxygen. Possible discharge home tomorrow. History Interval history: Shortness of breath. Has occasional cough. No chest pain. Hospitalist Physical - Constitutional Vitals: Temp Pulse Resp BP Pulse Ox 98.6 F 64 20 148/81 96 03/03/21 04:49 03/03/21 04:49 10/08/21 04:49 03/03/21 04:49 03/03/21 10:00 General appearance: Present: no acute distress, obese - EENT Eyes: Present: PERRL ENT: hearing intact - Neck Neck: Present: supple - Respiratory Respiratory effort: normal - Cardiovascular Rhythm: regular Heart Sounds: Present: S1 & S2 - Extremities Extremities: No edema - Abdominal General gastrointestinal: soft, non-tender, non-distended, normal bowel sounds - Integumentary Integumentary: Present: clear, warm, dry HEART Score - HEART Score Troponin: Troponin T 0.992 ng/mL (0.00-0.029) H* 02/15/21 03:55 Results - Labs CBC & Chem 7: 02/28/21 06:13 02/28/21 06:13 Labs: Laboratory Last Values WBC 3.6 K/mm3 (4.5-11.0) L 02/28/21 06:13 RBC 5.14 M/mm3 (3.65-5.03) H 02/28/21 06:13 Hgb 13.2 gm/dl (10.1-14.3) 02/28/21 06:13 Hct 40.2 % (30.3-42.9) 02/28/21 06:13 MCV 78 fl (79-97) L 02/28/21 06:13 MCH 26 pg (28-32) L 02/28/21 06:13 MCHC 33 % (30-34) 02/28/21 06:13 RDW 16.0 % (13.2-15.2) H 02/28/21 06:13 Plt Count 165 K/mm3 (140-440) 02/28/21 06:13 Lymph % (Auto) 23.7 % (13.4-35.0) 02/28/21 06:13 [place] % (Auto) 10.3 % (0.0-7.3) H 02/28/21 06:13 Eos % (Auto) 13.7 % (0.0-4.3) H 02/28/21 06:13 Baso % (Auto) 0.9 % (0.0-1.8) 02/28/21 06:13 Lymph # (Auto) 0.9 K/mm3 (1.2-5.4) L 02/28/21 06:13 [place] # (Auto) 0.4 K/mm3 (0.0-0.8) 02/28/21 06:13 Eos # (Auto) 0.5 K/mm3 (0.0-0.4) H 02/28/21 06:13 Baso # (Auto) 0.0 K/mm3 (0.0-0.1) 02/28/21 06:13 Add Manual Diff Complete 02/20/21 06:39 Total Counted 100 02/20/21 06:39 Seg Neutrophils % 51.4 % (40.0-70.0) 02/28/21 06:13 Seg Neuts % (Manual) 88.0 % (40.0-70.0) H 02/20/21 06:39 Lymphocytes % (Manual) 4.0 % (13.4-35.0) L 02/20/21 06:39 Reactive Lymphs % (Man) 2.0 % 02/20/21 06:39 Monocytes % (Manual) 3.0 % (0.0-7.3) 02/20/21 06:39 Eosinophils % (Manual) 1.0 % (0.0-4.3) 02/20/21 06:39 Myelocytes % 2.0 % 02/20/21 06:39 Nucleated RBC % Not Reportable 02/20/21 06:39 Seg Neutrophils # 1.9 K/mm3 (1.8-7.7) 02/28/21 06:13 Seg Neutrophils # Man 5.5 K/mm3 (1.8-7.7) 02/20/21 06:39 Band Neutrophils # 0.0 K/mm3 02/20/21 06:39 Lymphocytes # (Manual) 0.2 K/mm3 (1.2-5.4) L 02/20/21 06:39 Abs React Lymphs (Man) 0.1 K/mm3 02/20/21 06:39 Monocytes # (Manual) 0.2 K/mm3 (0.0-0.8) 02/20/21 06:39 Eosinophils # (Manual) 0.1 K/mm3 (0.0-0.4) 02/20/21 06:39 Basophils # (Manual) 0.0 K/mm3 (0.0-0.1) 02/20/21 06:39 Metamyelocytes # 0.0 K/mm3 02/20/21 06:39 Myelocytes # 0.1 K/mm3 02/20/21 06:39 Promyelocytes # 0.0 K/mm3 02/20/21 06:39 Blast Cells # 0.0 K/mm3 02/20/21 06:39 WBC Morphology Not Reportable 02/20/21 06:39 Hypersegmented Neuts Not Reportable 02/20/21 06:39 Hyposegmented Neuts Not Reportable 02/20/21 06:39 Hypogranular Neuts Not Reportable 02/20/21 06:39 Smudge Cells Not Reportable 02/20/21 06:39 Toxic Granulation Not Reportable 02/20/21 06:39 Toxic Vacuolation Not Reportable 02/20/21 06:39 Dohle Bodies Not Reportable 02/20/21 06:39 Pelger-Huet Anomaly Not Reportable 02/20/21 06:39 Aba Rods Not Reportable 02/20/21 06:39 Platelet Estimate Consistent w auto 02/20/21 06:39 Clumped Platelets Not Reportable 02/20/21 06:39 Plt Clumps, EDTA Not Reportable 02/20/21 06:39 Large Platelets Not Reportable 02/20/21 06:39 Giant Platelets Not Reportable 02/20/21 06:39 Platelet Satelliting Not Reportable 02/20/21 06:39 Plt Morphology Comment Not Reportable 02/20/21 06:39 RBC Morphology Normal 02/20/21 06:39 Dimorphic RBCs Not Reportable 02/20/21 06:39 Polychromasia Not Reportable 02/20/21 06:39 Hypochromasia Not Reportable 02/20/21 06:39 Poikilocytosis Not Reportable 02/20/21 06:39 Anisocytosis Not Reportable 02/20/21 06:39 Microcytosis Not Reportable 02/20/21 06:39 Macrocytosis Not Reportable 02/20/21 06:39 Spherocytes Not Reportable 02/20/21 06:39 Pappenheimer Bodies Not Reportable 02/20/21 06:39 Sickle Cells Not Reportable 02/20/21 06:39 Target Cells Not Reportable 02/20/21 06:39 Tear Drop Cells Not Reportable 02/20/21 06:39 Ovalocytes Not Reportable 02/20/21 06:39 Helmet Cells Not Reportable 02/20/21 06:39 [place] Bodies Not Reportable 02/20/21 06:39 [place] Rings Not Reportable 02/20/21 06:39 [place] Cells Not Reportable 02/20/21 06:39 Bite Cells Not Reportable 02/20/21 06:39 Crenated Cell Not Reportable 02/20/21 06:39 Elliptocytes Not Reportable 02/20/21 06:39 Acanthocytes (Spur) Not Reportable 02/20/21 06:39 Rouleaux Not Reportable 02/20/21 06:39 Hemoglobin C Crystals Not Reportable 02/20/21 06:39 Schistocytes Not Reportable 02/20/21 06:39 Malaria parasites Not Reportable 02/20/21 06:39 [place]to Bodies Not Reportable 02/20/21 06:39 Hem Pathologist Commnt No 02/20/21 06:39 PT 14.1 Sec. (12.2-14.9) 02/22/21 15:12 INR 1.03 (0.87-1.13) 02/22/21 15:12 APTT 50.0 Sec. (24.2-36.6) H 02/22/21 15:12 Thrombin Time 17.2 Sec. (15.1-19.6) 02/14/21 20:21 D-Dimer 1141.63 ng/mlDDU (0-234) H 03/02/21 23:57 Heparin Anti-Xa Level 0.32 U.I./ml (0.3-0.7) 02/22/21 06:50 Sodium 141 mmol/L (137-145) 02/28/21 06:13 Potassium 4.1 mmol/L (3.6-5.0) 02/28/21 06:13 Chloride 102.8 mmol/L (98-107) 02/28/21 06:13 Carbon Dioxide 29 mmol/L (22-30) 02/28/21 06:13 Anion Gap 13 mmol/L 02/28/21 06:13 BUN 16 mg/dL (7-17) 02/28/21 06:13 Creatinine 0.7 mg/dL (0.6-1.2) 02/28/21 06:13 Creatinine 0.7 mg/dL (0.6-1.2) 02/28/21 06:13 Estimated GFR > 60 ml/min 02/28/21 06:13 Estimated GFR > 60 ml/min 02/28/21 06:13 BUN/Creatinine Ratio 23 % 02/28/21 06:13 Glucose 166 mg/dL (65-100) H 02/28/21 06:13 POC Glucose 175 mg/dL (70-105) H 03/03/21 11:14 Calcium 9.3 mg/dL (8.4-10.2) 02/28/21 06:13 Phosphorus 3.30 mg/dL (2.5-4.5) 02/22/21 06:50 Magnesium 1.80 mg/dL (1.7-2.3) 02/22/21 06:50 Ferritin 915.5 ng/mL (10.0-200.0) H 02/20/21 06:39 Total Bilirubin 0.30 mg/dL (0.1-1.2) 02/20/21 06:39 AST 36 units/L (5-40) 02/20/21 06:39 ALT 27 units/L (7-56) 02/20/21 06:39 Alkaline Phosphatase 74 units/L (35-129) 02/20/21 06:39 Lactate Dehydrogenase 645 units/L (91-180) H 02/20/21 06:39 Troponin T 0.992 ng/mL (0.00-0.029) H* 02/15/21 03:55 C-Reactive Protein 3.60 mg/dL (0.00-1.30) H 02/20/21 06:39 NT-Pro-B Natriuret Pep 4086 pg/mL (0-900) H 02/15/21 08:38 Total Protein 7.0 g/dL (6.3-8.2) 02/20/21 06:39 Albumin 3.1 g/dL (3.9-5) L 02/20/21 06:39 Albumin/Globulin Ratio 0.8 % 02/20/21 06:39 Triglycerides 292 mg/dL (2-149) H 02/14/21 20:21 Cholesterol 199 mg/dL (50-199) 02/14/21 20:21 LDL Cholesterol Direct 105 mg/dL (50-130) 02/14/21 20:21 HDL Cholesterol 23 mg/dL (40-59) L 02/14/21 20:21 Cholesterol/HDL Ratio 8.65 % 02/14/21 20:21 Procalcitonin 0.59 ng/mL (<0.15) 02/15/21 18:20 Coronavirus (PCR) Positive (Negative) A 02/16/21 Unknown Blood Type A POSITIVE 02/14/21 20:21 Antibody Screen Negative 02/14/21 20:21 Taylor/IV: Voiding Method External Female Catheter Active Medications - Current Medications Current Medications: Generic Name Dose Route Start Last Admin Trade Name Freq PRN Reason Stop Dose Admin Acetaminophen 650 mg 02/16/21 01:00 02/16/21 02:09 Acetaminophen 650 Mg Rect Supp OK 650 mg Q6H PRN Administration Pain, Mild (1-3) Hydrocodone Bitart/Acetaminophen 1 each 02/14/21 21:57 03/02/21 05:25 Hydrocodone/Acetaminophen 5-325 Mg Tab PO 1 each Q6H PRN Administration Pain, Moderate (4-6) Albuterol 2.5 mg 02/14/21 21:54 Albuterol 2.5 Mg/3 Ml Nebu IH Q4HRT PRN Shortness Of Breath Amlodipine Besylate 5 mg 03/02/21 13:00 03/03/21 09:38 Amlodipine 5 Mg Tab PO 5 mg QDAY KARYN Administration Lipase/Protease/Amylase 1 each 02/17/21 12:34 Lipase 10,500/Protease 25,000/Amylase 43,750 (Units) Dr Alpesh PURCELL PRN PRN For Clogged Feeding Tube Apixaban 2.5 mg 02/22/21 22:00 03/03/21 09:38 Apixaban 2.5 Mg Tab PO 2.5 mg Q12HR KARYN Administration Protocol Aspirin 81 mg 02/16/21 12:00 03/03/21 09:38 Aspirin 81 Mg Tab Chew PO 81 mg QDAY KARYN Administration Atorvastatin Calcium 80 mg 02/15/21 22:00 03/02/21 22:47 Atorvastatin 40 Mg Tab PO 80 mg QHS KARYN Administration Clopidogrel Bisulfate 75 mg 02/15/21 10:00 03/03/21 09:38 Clopidogrel 75 Mg Tab PO 75 mg QDAY KARYN Administration Dextrose 0 ml 02/14/21 21:54 Dextrose 50% In Water (25gm) 50 Ml Syringe IV Q30MIN PRN Hypoglycemia Protocol Docusate Sodium 100 mg 02/14/21 22:04 03/02/21 10:24 Docusate Sodium 100 Mg Cap PO 100 mg DAILY PRN Administration Constip unreliev by MOM/or NPO Famotidine 20 mg 02/21/21 10:00 03/03/21 09:38 Famotidine 20 Mg Tab PO 20 mg BID KARYN Administration Ferrous Sulfate 300 mg 02/21/21 22:00 03/03/21 09:40 Ferrous Sulfate 300 Mg (60mg Elemental Iron) / 5 Ml Oral Liqd FEEDTUBE 300 mg BID KARYN Administration Guaifenesin 200 mg 02/26/21 22:54 03/02/21 22:47 Guaifenesin 100 Mg/5 Ml Oral Liqd PO 200 mg Q4H PRN Administration Cough Hydromorphone HCl 0.5 mg 02/14/21 21:54 02/28/21 20:15 Hydromorphone 1 Mg/1 Ml Inj IV 0.5 mg Q3H PRN Administration Pain , Severe (7-10) Hydrophilic Ointment 1 applic 02/20/21 09:00 Lip Therapy Vaseline TP DIRECT PRN Dry Lips Insulin Glargine 15 units 03/02/21 12:24 03/02/21 22:47 Insulin Glargine 100 Units/Ml SUB-Q 15 units QHS [facility] Administration Insulin Human Lispro 0 unit 02/17/21 22:00 03/03/21 08:59 Insulin Lispro 100 Unit/Ml SUB-Q Not Given [facility] Protocol Insulin Human Regular 7 units 02/22/21 16:30 03/03/21 08:59 Insulin Regular, Human 100 Units/1 Ml SUB-Q 7 units [facility] Administration Melatonin 5 mg 02/16/21 17:53 03/02/21 22:44 Melatonin 5 Mg Tab PO 5 mg QHS PRN Administration Sleep Metoprolol Tartrate 50 mg 02/19/21 22:00 03/03/21 09:38 Metoprolol Tartrate 50 Mg Tab PO 50 mg BID [facility] Administration Morphine Sulfate 2 mg 02/14/21 21:54 02/26/21 03:48 Morphine 2 Mg/1 Ml Inj IV 2 mg Q4H PRN Administration Pain, Moderate (4-6) Ondansetron HCl 4 mg 02/14/21 21:54 02/28/21 20:14 Ondansetron 4 Mg/2 Ml Inj IV 4 mg Q8H PRN Administration Nausea And Vomiting Polyethylene Glycol 17 gm 03/02/21 13:00 03/02/21 13:43 Polyethylene Glycol 3350 17 Gm Powder PO 17 gm QDAY KARYN Administration Simple Syrup 15 ml 02/17/21 12:34 Simple Syrup 15 Ml FEEDTUBE PRN PRN Hypoglycemia Simple Syrup 30 ml 02/17/21 12:34 Simple Syrup 15 Ml FEEDTUBE PRN PRN Hypoglycemia Sodium Bicarbonate 325 mg 02/17/21 12:34 Sodium Bicarbonate 325 Mg Tab FEEDTUBE PRN PRN For Clogged Feeding Tube Sodium Chloride 10 ml 02/14/21 22:00 03/03/21 09:40 Sodium Chloride 0.9% 10 Ml Flush Syringe IV 10 ml BID KARYN Administration Sodium Chloride 10 ml 02/14/21 21:54 Sodium Chloride 0.9% 10 Ml Flush Syringe IV PRN PRN LINE FLUSH Nutrition/Malnutrition Assess - Dietary Evaluation Nutrition/Malnutrition Findings: Nutrition Notes Start: 02/15/21 12:03 Freq: Status: Active Protocol: Document 02/27/21 18:14 GB (Rec: 02/27/21 18:22 GB [id number]) Nutrition Notes Initial or Follow up Reassessment Current Diagnosis Diabetes,Hypertension, Respiratory Failure,Stroke Other Pertinent Diagnosis hyperglycemia, STEMI Current Diet Pureed w/dietary supplements BID Labs/Tests 02/25: BUN 18 Pertinent Medications ferrous sulfate, NaCl/Hep, NaCl, remdesivir Height 5 ft 4 in Weight 91.6 kg [place] Body Weight (kg) 54.54 BMI 34.7 Weight change and time frame 02/14: 104.3 kg 02/26: 91.6 kg change of -12.7kg for -12% loss r/t Respiratory failure complications Weight Status Obese Subjective/Other Information Diet texture Pureed. Per chart: po intake of meals average 50-100%. Adding glucerna BID for additional calories/protein while po intake recovers. Percent of energy/protein needs met: PO intake of meals and supplement 50% or greater will meet 75% or greater of estimated energy needs. Burn Absent Trauma Absent GI Symptoms None Difficulty In Swallowing Food Allergy No Current % PO Good (75-100%) Minimum of two criteria No #2 Nutrition Diagnosis Inadequate energy intake Comments: 02/27: Diet texture Pureed, supplement beverages BID, PO intake 50-100% Etiology DM, collapse As Evidenced by Signs and Symptoms Recent advancement to PO intake with mechanically altered texture diet, NG d/c , need for nutritional supplement beverage to meet estimated energy needs. Diagnosis Progress(for reassessment Resolved documentation) #1 Nutrition Diagnosis Other: (Specify in comment below) Comments: Comprimised PO intake, dependency for enteral feed to meet nutrition needs Etiology DM, collapse, As Evidenced by Signs and Symptoms not able to eat PO at this time, MD order for TF Diagnosis Progress(for reassessment Resolved documentation) Is patient on ventilator? No Is Patient Ambulatory and/or Out of Bed Yes REE-(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
[2021-03-03] MEDS: POLYETHYLENE GLYCOL 3350 17 GM POWDER PO SCH (13:19)
[2021-03-03] MEDS: HYDROcodone/ACETAMINOPHEN 5-325 MG TAB PO PRN (13:21)
[2021-03-03] MEDS: INSULIN GLARGINE 100 UNITS/ML SUB-Q SCH (22:22)
[2021-03-03] MEDS: MELATONIN 5 MG TAB PO PRN (22:22)
[2021-03-03] MEDS: guaiFENesin 100 MG/5 ML ORAL LIQD PO PRN (22:23)
[2021-03-04] MEDS: INSULIN LISPRO 100 UNIT/ML SUB-Q SCH ×4 (08:14→22:11)
[2021-03-04] MEDS: DOCUSATE SODIUM 100 MG CAP PO PRN (08:26)
[2021-03-04] MEDS: HYDROcodone/ACETAMINOPHEN 5-325 MG TAB PO PRN ×2 (08:26→22:09)
[2021-03-04] MEDS: INSULIN REGULAR, HUMAN 100 UNITS/1 ML SUB-Q SCH ×2 (08:27→12:43)
[2021-03-04] MEDS: CLOPIDOGREL 75 MG TAB PO SCH (09:36)
[2021-03-04] MEDS: APIXABAN 2.5 MG TAB PO SCH ×2 (09:36→22:09)
[2021-03-04] MEDS: ASPIRIN 81 MG TAB CHEW PO SCH (09:36)
[2021-03-04] MEDS: METOPROLOL TARTRATE 50 MG TAB PO SCH ×2 (09:36→22:08)
[2021-03-04] MEDS: POLYETHYLENE GLYCOL 3350 17 GM POWDER PO SCH (09:37)
[2021-03-04] MEDS: amLODIPine 5 MG TAB PO SCH (09:37)
[2021-03-04] MEDS: FERROUS SULFATE 300 MG (60MG Elemental Iron) / 5 mL ORAL LIQD FEEDTUBE SCH ×2 (10:16→22:08)
[2021-03-04] MEDS: FAMOTIDINE 20 MG TAB PO SCH ×2 (10:16→22:09)
--- NOTE | 2021-03-04 10:16 | Progress Note ---
Assessment and Plan - Patient Problems (1) STEMI (ST elevation myocardial infarction) Current Visit: Yes Status: Acute Plan to address problem: Status post coronary stent to the distal right coronary artery for acute right coronary embolic occlusion in the setting of acute Covid viral pneumonia. Cardiac status stable and asymptomatic, continue medical therapy as directed, will follow intermittently. (2) Venous thromboembolism Current Visit: Yes Status: Acute Plan to address problem: Patient also has evidence of venous thromboembolism with thrombus and transition in the right ventricle. In addition to dual oral antiplatelet therapy post right coronary stenting, she is on triple therapy with addition of Eliquis. Subjective Date of service: 03/04/21 Principal diagnosis: Covid-19 Interval history: Patient is comfortable, no new cardiac complaints. Objective Vital Signs Temp Pulse Resp BP Pulse Ox 03/04/21 09:36 11 L 03/04/21 04:29 98.5 F 72 16 137/82 95 03/03/21 23:03 97.6 F 76 16 101/63 100 03/03/21 22:19 72 16 108/71 95 03/03/21 22:17 97 03/03/21 22:00 94 03/03/21 17:27 99.0 F 62 24 131/72 100 03/03/21 11:13 97.6 F 69 24 123/71 97 - Physical Examination Narrative exam: Full physical exam is deferred due to acute Covid pneumonia. General: No Apparent Distress - Imaging and Cardiology Echo: other (02/14/2021 Echo - Normal LV and RV systolic function, thrombus in RV)
--- NOTE | 2021-03-04 10:38 | Progress Note ---
Assessment and Plan 55 y/o female with STEMI and acute respiratory failure 03/04/21: stable on 2 liters. No objection pulm padilla to discharge. Can arrange follow up with us to assess oxygen needs. Will sign off. 03/02/21: Down to 2 liters. Improving. Should consider walk test and discharge vs rehab. Will see PRN 1. Pulm- CXR appears to be more consistent with pulmonary edema and BNP is 4k. Stopped IVF's. Attempted to take of bipap but desats on cannula. Awake and tachypnic. Will give lasix 20mg IV x1 now to see if this helps with oxygen req uirement. DO not feel this is infection. 2. Cards-STemi, goal directed therapy and follow up echo, done but not read yet. 3. Endo-elevated blood sugar likely related to acute mI, although patient could have underlying disease given age and weight, suggest checking A1C. 4. Guarded prognosis Subjective Date of service: 03/04/21 Principal diagnosis: Covid-19 Interval history: Appears patient is going to be discharged to home with DME and oxygen Objective Vital Signs - 12hr 03/03/21 03/04/21 03/04/21 23:03 04:29 09:36 Temperature 97.6 F 98.5 F Pulse Rate 76 72 11 L Respiratory 16 16 Rate Blood Pressure 101/63 137/82 O2 Sat by Pulse 100 95 Oximetry Gastrointestinal: normoactive bowel sounds Integumentary: normal CBC and BMP: 02/28/21 06:13 02/28/21 06:13 ABG, PT/INR, D-dimer: PT/INR, D-dimer PT 14.1 Sec. (12.2-14.9) 02/22/21 15:12 INR 1.03 (0.87-1.13) 02/22/21 15:12 D-Dimer 1141.63 ng/mlDDU (0-234) H 03/02/21 23:57 Abnormal lab findings: Abnormal Labs 02/14/21 02/14/21 02/14/21 20:21 20:21 20:21 WBC 15.6 H RBC 5.55 H Hgb Hct 43.3 H MCV 78 L MCH 26 L MCHC RDW 16.3 H Lymph % (Auto) Baldwin % (Auto) Eos % (Auto) Lymph # (Auto) Eos # (Auto) Seg Neutrophils % Seg Neuts % (Manual) 96.0 H Lymphocytes % (Manual) 3.0 L Seg Neutrophils # Seg Neutrophils # Man 15.0 H Lymphocytes # (Manual) 0.5 L PT 16.7 H INR 1.30 H APTT D-Dimer Heparin Anti-Xa Level Sodium 131 L Potassium 5.1 H Chloride 88.4 L Carbon Dioxide 20 L BUN 34 H Creatinine 1.5 H Glucose 574 H* POC Glucose Magnesium Ferritin AST Lactate Dehydrogenase Troponin T 0.882 H* C-Reactive Protein NT-Pro-B Natriuret Pep Albumin Triglycerides 292 H HDL Cholesterol 23 L Coronavirus (PCR) 02/14/21 02/14/21 02/14/21 20:21 23:11 23:20 WBC RBC Hgb Hct MCV MCH MCHC RDW Lymph % (Auto) Baldwin % (Auto) Eos % (Auto) Lymph # (Auto) Eos # (Auto) Seg Neutrophils % Seg Neuts % (Manual) Lymphocytes % (Manual) Seg Neutrophils # Seg Neutrophils # Man Lymphocytes # (Manual) PT INR APTT D-Dimer Heparin Anti-Xa Level Sodium Potassium Chloride Carbon Dioxide BUN Creatinine Glucose POC Glucose 562 H 422 H Magnesium Ferritin AST Lactate Dehydrogenase Troponin T 0.892 H* C-Reactive Protein NT-Pro-B Natriuret Pep Albumin Triglycerides HDL Cholesterol Coronavirus (PCR) 02/15/21 02/15/21 02/15/21 03:55 03:55 05:29 WBC RBC 5.17 H Hgb Hct MCV 77 L MCH 26 L MCHC RDW 15.8 H Lymph % (Auto) 4.9 L Baldwin % (Auto) Eos % (Auto) Lymph # (Auto) 0.5 L Eos # (Auto) Seg Neutrophils % 89.2 H Seg Neuts % (Manual) Lymphocytes % (Manual) Seg Neutrophils # 8.4 H Seg Neutrophils # Man Lymphocytes # (Manual) PT INR APTT D-Dimer Heparin Anti-Xa Level Sodium 136 L Potassium Chloride 97.3 L Carbon Dioxide 18 L BUN 33 H Creatinine Glucose 402 H POC Glucose 345 H Magnesium Ferritin AST 46 H Lactate Dehydrogenase Troponin T 0.992 H* C-Reactive Protein NT-Pro-B Natriuret Pep Albumin 3.0 L Triglycerides HDL Cholesterol Coronavirus (PCR) 02/15/21 02/15/21 02/15/21 08:38 08:38 08:38 WBC RBC Hgb Hct MCV 75 L MCH 26 L MCHC 35 H RDW 16.2 H Lymph % (Auto) Baldwin % (Auto) Eos % (Auto) Lymph # (Auto) Eos # (Auto) Seg Neutrophils % Seg Neuts % (Manual) Lymphocytes % (Manual) Seg Neutrophils # Seg Neutrophils # Man Lymphocytes # (Manual) PT INR APTT D-Dimer Heparin Anti-Xa Level Sodium 135 L Potassium Chloride Carbon Dioxide 19 L BUN 31 H Creatinine Glucose 360 H POC Glucose Magnesium 2.50 H Ferritin AST Lactate Dehydrogenase Troponin T C-Reactive Protein NT-Pro-B Natriuret Pep 4086 H Albumin Triglycerides HDL Cholesterol Coronavirus (PCR) 02/15/21 02/15/21 02/15/21 11:15 17:28 18:20 WBC RBC Hgb Hct MCV MCH MCHC RDW Lymph % (Auto) Baldwin % (Auto) Eos % (Auto) Lymph # (Auto) Eos # (Auto) Seg Neutrophils % Seg Neuts % (Manual) Lymphocytes % (Manual) Seg Neutrophils # Seg Neutrophils # Man Lymphocytes # (Manual) PT INR APTT D-Dimer > 54303 H Heparin Anti-Xa Level Sodium Potassium Chloride Carbon Dioxide BUN Creatinine Glucose POC Glucose 317 H 311 H Magnesium Ferritin AST Lactate Dehydrogenase Troponin T C-Reactive Protein NT-Pro-B Natriuret Pep Albumin Triglycerides HDL Cholesterol Coronavirus (PCR) 02/15/21 02/15/21 02/15/21 18:20 18:20 18:20 WBC RBC Hgb Hct MCV MCH MCHC RDW Lymph % (Auto) [place] % (Auto) Eos % (Auto) Lymph # (Auto) Eos # (Auto) Seg Neutrophils % Seg Neuts % (Manual) Lymphocytes % (Manual) Seg Neutrophils # Seg Neutrophils # Man Lymphocytes # (Manual) PT 15.8 H INR 1.20 H APTT D-Dimer Heparin Anti-Xa Level Sodium Potassium Chloride Carbon Dioxide BUN Creatinine Glucose POC Glucose Magnesium Ferritin 837.7 H AST Lactate Dehydrogenase 766 H Troponin T C-Reactive Protein 21.50 H NT-Pro-B Natriuret Pep Albumin Triglycerides HDL Cholesterol Coronavirus (PCR) 02/15/21 02/16/21 02/16/21 23:45 02:44 02:44 WBC RBC Hgb Hct MCV 77 L MCH 26 L MCHC RDW 16.0 H Lymph % (Auto) Baldwin % (Auto) Eos % (Auto) Lymph # (Auto) Eos # (Auto) Seg Neutrophils % Seg Neuts % (Manual) Lymphocytes % (Manual) Seg Neutrophils # Seg Neutrophils # Man Lymphocytes # (Manual) PT INR APTT D-Dimer Heparin Anti-Xa Level Sodium Potassium Chloride Carbon Dioxide BUN 27 H Creatinine Glucose 269 H POC Glucose 203 H Magnesium Ferritin AST Lactate Dehydrogenase Troponin T C-Reactive Protein NT-Pro-B Natriuret Pep Albumin Triglycerides HDL Cholesterol Coronavirus (PCR) 02/16/21 02/16/21 02/16/21 05:47 11:50 15:00 WBC RBC Hgb Hct MCV MCH MCHC RDW Lymph % (Auto) Baldwin % (Auto) Eos % (Auto) Lymph # (Auto) Eos # (Auto) Seg Neutrophils % Seg Neuts % (Manual) Lymphocytes % (Manual) Seg Neutrophils # Seg Neutrophils # Man Lymphocytes # (Manual) PT INR APTT D-Dimer Heparin Anti-Xa Level < 0.10 L Sodium Potassium Chloride Carbon Dioxide BUN Creatinine Glucose POC Glucose 275 H 251 H Magnesium Ferritin AST Lactate Dehydrogenase Troponin T C-Reactive Protein NT-Pro-B Natriuret Pep Albumin Triglycerides HDL Cholesterol Coronavirus (PCR) 02/16/21 02/16/21 02/16/21 18:23 23:30 23:57 WBC RBC Hgb Hct MCV MCH MCHC RDW Lymph % (Auto) [place] % (Auto) Eos % (Auto) Lymph # (Auto) Eos # (Auto) Seg Neutrophils % Seg Neuts % (Manual) Lymphocytes % (Manual) Seg Neutrophils # Seg Neutrophils # Man Lymphocytes # (Manual) PT INR APTT D-Dimer Heparin Anti-Xa Level < 0.10 L Sodium Potassium Chloride Carbon Dioxide BUN Creatinine Glucose POC Glucose 237 H 249 H Magnesium Ferritin AST Lactate Dehydrogenase Troponin T C-Reactive Protein NT-Pro-B Natriuret Pep Albumin Triglycerides HDL Cholesterol Coronavirus (PCR) 02/16/21 02/17/21 02/17/21 Unknown 05:25 06:18 WBC RBC Hgb Hct MCV MCH MCHC RDW Lymph % (Auto) Baldwin % (Auto) Eos % (Auto) Lymph # (Auto) Eos # (Auto) Seg Neutrophils % Seg Neuts % (Manual) Lymphocytes % (Manual) Seg Neutrophils # Seg Neutrophils # Man Lymphocytes # (Manual) PT INR APTT D-Dimer Heparin Anti-Xa Level Sodium Potassium Chloride Carbon Dioxide BUN Creatinine Glucose POC Glucose 238 H 229 H Magnesium Ferritin AST Lactate Dehydrogenase Troponin T C-Reactive Protein NT-Pro-B Natriuret Pep Albumin Triglycerides HDL Cholesterol Coronavirus (PCR) Positive A 02/17/21 02/17/21 02/17/21 11:35 13:30 13:30 WBC RBC Hgb Hct MCV MCH MCHC RDW Lymph % (Auto) Baldwin % (Auto) Eos % (Auto) Lymph # (Auto) Eos # (Auto) Seg Neutrophils % Seg Neuts % (Manual) Lymphocytes % (Manual) Seg Neutrophils # Seg Neutrophils # Man Lymphocytes # (Manual) PT INR APTT D-Dimer Heparin Anti-Xa Level 0.29 L Sodium 146 H D Potassium Chloride 107.3 H Carbon Dioxide BUN 29 H Creatinine Glucose 334 H POC Glucose 279 H Magnesium Ferritin AST Lactate Dehydrogenase Troponin T C-Reactive Protein NT-Pro-B Natriuret Pep Albumin Triglycerides HDL Cholesterol Coronavirus (PCR) 02/17/21 02/17/21 02/17/21 13:30 13:30 16:42 WBC RBC Hgb Hct MCV 77 L MCH 25 L MCHC RDW 16.1 H Lymph % (Auto) [place] % (Auto) Eos % (Auto) Lymph # (Auto) Eos # (Auto) Seg Neutrophils % Seg Neuts % (Manual) Lymphocytes % (Manual) Seg Neutrophils # Seg Neutrophils # Man Lymphocytes # (Manual) PT INR APTT D-Dimer Heparin Anti-Xa Level Sodium 146 H Potassium Chloride Carbon Dioxide BUN 29 H Creatinine Glucose 340 H POC Glucose 291 H Magnesium Ferritin AST Lactate Dehydrogenase Troponin T C-Reactive Protein NT-Pro-B Natriuret Pep Albumin 2.7 L Triglycerides HDL Cholesterol Coronavirus (PCR) 02/17/21 02/18/21 02/18/21 21:43 04:40 04:40 WBC RBC Hgb Hct MCV 78 L MCH 26 L MCHC RDW 16.3 H Lymph % (Auto) [place] % (Auto) Eos % (Auto) Lymph # (Auto) Eos # (Auto) Seg Neutrophils % Seg Neuts % (Manual) Lymphocytes % (Manual) Seg Neutrophils # Seg Neutrophils # Man Lymphocytes # (Manual) PT INR APTT D-Dimer Heparin Anti-Xa Level Sodium 149 H Potassium Chloride 108.9 H Carbon Dioxide BUN 34 H Creatinine Glucose 318 H POC Glucose 288 H Magnesium Ferritin AST Lactate Dehydrogenase Troponin T C-Reactive Protein 14.50 H NT-Pro-B Natriuret Pep Albumin 3.0 L Triglycerides HDL Cholesterol Coronavirus (PCR) 02/18/21 02/18/21 02/18/21 04:40 08:02 11:30 WBC RBC Hgb Hct MCV MCH MCHC RDW Lymph % (Auto) [place] % (Auto) Eos % (Auto) Lymph # (Auto) Eos # (Auto) Seg Neutrophils % Seg Neuts % (Manual) Lymphocytes % (Manual) Seg Neutrophils # Seg Neutrophils # Man Lymphocytes # (Manual) PT INR APTT D-Dimer 3846.94 H Heparin Anti-Xa Level Sodium Potassium Chloride Carbon Dioxide BUN Creatinine Glucose POC Glucose 263 H 309 H Magnesium Ferritin AST Lactate Dehydrogenase Troponin T C-Reactive Protein NT-Pro-B Natriuret Pep Albumin Triglycerides HDL Cholesterol Coronavirus (PCR) 02/18/21 02/18/21 02/18/21 12:29 21:56 22:34 WBC RBC Hgb Hct MCV MCH MCHC RDW Lymph % (Auto) [place] % (Auto) Eos % (Auto) Lymph # (Auto) Eos # (Auto) Seg Neutrophils % Seg Neuts % (Manual) Lymphocytes % (Manual) Seg Neutrophils # Seg Neutrophils # Man Lymphocytes # (Manual) PT INR APTT D-Dimer Heparin Anti-Xa Level 0.29 L Sodium Potassium Chloride Carbon Dioxide BUN Creatinine Glucose POC Glucose 313 H 284 H Magnesium Ferritin AST Lactate Dehydrogenase Troponin T C-Reactive Protein NT-Pro-B Natriuret Pep Albumin Triglycerides HDL Cholesterol Coronavirus (PCR) 02/18/21 02/19/21 02/19/21 23:52 06:11 07:54 WBC RBC Hgb Hct MCV MCH MCHC RDW Lymph % (Auto) [place] % (Auto) Eos % (Auto) Lymph # (Auto) Eos # (Auto) Seg Neutrophils % Seg Neuts % (Manual) Lymphocytes % (Manual) Seg Neutrophils # Seg Neutrophils # Man Lymphocytes # (Manual) PT INR APTT D-Dimer Heparin Anti-Xa Level Sodium 151 H Potassium Chloride 110.6 H Carbon Dioxide BUN 28 H Creatinine Glucose 191 H POC Glucose 272 H 155 H Magnesium Ferritin AST Lactate Dehydrogenase Troponin T C-Reactive Protein NT-Pro-B Natriuret Pep Albumin 3.0 L Triglycerides HDL Cholesterol Coronavirus (PCR) 02/19/21 02/19/21 02/19/21 12:37 16:29 21:28 WBC RBC Hgb Hct MCV MCH MCHC RDW Lymph % (Auto) [place] % (Auto) Eos % (Auto) Lymph # (Auto) Eos # (Auto) Seg Neutrophils % Seg Neuts % (Manual) Lymphocytes % (Manual) Seg Neutrophils # Seg Neutrophils # Man Lymphocytes # (Manual) PT INR APTT D-Dimer Heparin Anti-Xa Level Sodium Potassium Chloride Carbon Dioxide BUN Creatinine Glucose POC Glucose 233 H 268 H 298 H Magnesium Ferritin AST Lactate Dehydrogenase Troponin T C-Reactive Protein NT-Pro-B Natriuret Pep Albumin Triglycerides HDL Cholesterol Coronavirus (PCR) 02/19/21 02/20/21 02/20/21 23:34 06:39 06:39 WBC RBC 5.08 H Hgb Hct MCV 77 L MCH 25 L MCHC RDW 16.0 H Lymph % (Auto) [place] % (Auto) Eos % (Auto) Lymph # (Auto) Eos # (Auto) Seg Neutrophils % Seg Neuts % (Manual) 88.0 H Lymphocytes % (Manual) 4.0 L Seg Neutrophils # Seg Neutrophils # Man Lymphocytes # (Manual) 0.2 L PT INR APTT D-Dimer 4275.78 H Heparin Anti-Xa Level 0.26 L Sodium Potassium Chloride Carbon Dioxide BUN Creatinine Glucose POC Glucose Magnesium Ferritin AST Lactate Dehydrogenase Troponin T C-Reactive Protein NT-Pro-B Natriuret Pep Albumin Triglycerides HDL Cholesterol Coronavirus (PCR) 02/20/21 02/20/21 02/20/21 06:39 06:39 08:45 WBC RBC Hgb Hct MCV MCH MCHC RDW Lymph % (Auto) Baldwin % (Auto) Eos % (Auto) Lymph # (Auto) Eos # (Auto) Seg Neutrophils % Seg Neuts % (Manual) Lymphocytes % (Manual) Seg Neutrophils # Seg Neutrophils # Man Lymphocytes # (Manual) PT INR APTT D-Dimer Heparin Anti-Xa Level Sodium 152 H 151 H Potassium Chloride 112.0 H 111.4 H Carbon Dioxide 31 H BUN 23 H 23 H Creatinine Glucose 119 H 140 H POC Glucose Magnesium Ferritin 915.5 H AST Lactate Dehydrogenase 645 H Troponin T C-Reactive Protein 3.60 H NT-Pro-B Natriuret Pep Albumin 3.1 L Triglycerides HDL Cholesterol Coronavirus (PCR) 02/20/21 02/20/21 02/20/21 11:57 18:01 22:20 WBC RBC Hgb Hct MCV MCH MCHC RDW Lymph % (Auto) [place] % (Auto) Eos % (Auto) Lymph # (Auto) Eos # (Auto) Seg Neutrophils % Seg Neuts % (Manual) Lymphocytes % (Manual) Seg Neutrophils # Seg Neutrophils # Man Lymphocytes # (Manual) PT INR APTT D-Dimer Heparin Anti-Xa Level Sodium Potassium Chloride Carbon Dioxide BUN Creatinine Glucose POC Glucose 217 H 337 H 379 H Magnesium Ferritin AST Lactate Dehydrogenase Troponin T C-Reactive Protein NT-Pro-B Natriuret Pep Albumin Triglycerides HDL Cholesterol Coronavirus (PCR) 02/21/21 02/21/21 02/21/21 07:43 11:42 16:30 WBC RBC Hgb Hct MCV MCH MCHC RDW Lymph % (Auto) [place] % (Auto) Eos % (Auto) Lymph # (Auto) Eos # (Auto) Seg Neutrophils % Seg Neuts % (Manual) Lymphocytes % (Manual) Seg Neutrophils # Seg Neutrophils # Man Lymphocytes # (Manual) PT INR APTT D-Dimer Heparin Anti-Xa Level Sodium Potassium Chloride Carbon Dioxide BUN Creatinine Glucose POC Glucose 152 H 206 H 235 H Magnesium Ferritin AST Lactate Dehydrogenase Troponin T C-Reactive Protein NT-Pro-B Natriuret Pep Albumin Triglycerides HDL Cholesterol Coronavirus (PCR) 02/21/21 02/22/21 02/22/21 21:56 05:51 06:50 WBC RBC Hgb Hct MCV MCH MCHC RDW Lymph % (Auto) Baldwin % (Auto) Eos % (Auto) Lymph # (Auto) Eos # (Auto) Seg Neutrophils % Seg Neuts % (Manual) Lymphocytes % (Manual) Seg Neutrophils # Seg Neutrophils # Man Lymphocytes # (Manual) PT INR APTT D-Dimer Heparin Anti-Xa Level Sodium Potassium 3.5 L Chloride Carbon Dioxide 31 H BUN 19 H Creatinine Glucose 118 H POC Glucose 205 H 121 H Magnesium Ferritin AST Lactate Dehydrogenase Troponin T C-Reactive Protein NT-Pro-B Natriuret Pep Albumin Triglycerides HDL Cholesterol Coronavirus (PCR) 02/22/21 02/22/21 02/22/21 07:55 11:47 15:12 WBC RBC Hgb Hct MCV 76 L MCH 26 L MCHC RDW Lymph % (Auto) [place] % (Auto) Eos % (Auto) Lymph # (Auto) Eos # (Auto) Seg Neutrophils % Seg Neuts % (Manual) Lymphocytes % (Manual) Seg Neutrophils # Seg Neutrophils # Man Lymphocytes # (Manual) PT INR APTT D-Dimer Heparin Anti-Xa Level Sodium Potassium Chloride Carbon Dioxide BUN Creatinine Glucose POC Glucose 148 H 216 H Magnesium Ferritin AST Lactate Dehydrogenase Troponin T C-Reactive Protein NT-Pro-B Natriuret Pep Albumin Triglycerides HDL Cholesterol Coronavirus (PCR) 02/22/21 02/22/21 02/22/21 15:12 17:55 22:01 WBC RBC Hgb Hct MCV MCH MCHC RDW Lymph % (Auto) [place] % (Auto) Eos % (Auto) Lymph # (Auto) Eos # (Auto) Seg Neutrophils % Seg Neuts % (Manual) Lymphocytes % (Manual) Seg Neutrophils # Seg Neutrophils # Man Lymphocytes # (Manual) PT INR APTT 50.0 H D-Dimer Heparin Anti-Xa Level Sodium Potassium Chloride Carbon Dioxide BUN Creatinine Glucose POC Glucose 327 H 173 H Magnesium Ferritin AST Lactate Dehydrogenase Troponin T C-Reactive Protein NT-Pro-B Natriuret Pep Albumin Triglycerides HDL Cholesterol Coronavirus (PCR) 02/23/21 02/23/21 02/23/21 07:36 10:32 15:49 WBC RBC Hgb Hct MCV MCH MCHC RDW Lymph % (Auto) [place] % (Auto) Eos % (Auto) Lymph # (Auto) Eos # (Auto) Seg Neutrophils % Seg Neuts % (Manual) Lymphocytes % (Manual) Seg Neutrophils # Seg Neutrophils # Man Lymphocytes # (Manual) PT INR APTT D-Dimer Heparin Anti-Xa Level Sodium Potassium Chloride Carbon Dioxide BUN Creatinine Glucose POC Glucose 149 H 240 H 338 H Magnesium Ferritin AST Lactate Dehydrogenase Troponin T C-Reactive Protein NT-Pro-B Natriuret Pep Albumin Triglycerides HDL Cholesterol Coronavirus (PCR) 02/23/21 02/24/21 02/24/21 21:20 05:42 07:45 WBC RBC 5.26 H Hgb Hct MCV 77 L MCH 25 L MCHC RDW Lymph % (Auto) [place] % (Auto) Eos % (Auto) Lymph # (Auto) Eos # (Auto) Seg Neutrophils % Seg Neuts % (Manual) Lymphocytes % (Manual) Seg Neutrophils # Seg Neutrophils # Man Lymphocytes # (Manual) PT INR APTT D-Dimer Heparin Anti-Xa Level Sodium Potassium Chloride Carbon Dioxide BUN Creatinine Glucose POC Glucose 311 H 118 H Magnesium Ferritin AST Lactate Dehydrogenase Troponin T C-Reactive Protein NT-Pro-B Natriuret Pep Albumin Triglycerides HDL Cholesterol Coronavirus (PCR) 02/24/21 02/24/21 02/24/21 12:28 16:27 22:20 WBC RBC Hgb Hct MCV MCH MCHC RDW Lymph % (Auto) [place] % (Auto) Eos % (Auto) Lymph # (Auto) Eos # (Auto) Seg Neutrophils % Seg Neuts % (Manual) Lymphocytes % (Manual) Seg Neutrophils # Seg Neutrophils # Man Lymphocytes # (Manual) PT INR APTT D-Dimer Heparin Anti-Xa Level Sodium Potassium Chloride Carbon Dioxide BUN Creatinine Glucose POC Glucose 240 H 446 H 246 H Magnesium Ferritin AST Lactate Dehydrogenase Troponin T C-Reactive Protein NT-Pro-B Natriuret Pep Albumin Triglycerides HDL Cholesterol Coronavirus (PCR) 02/25/21 02/25/21 02/25/21 05:58 05:58 12:24 WBC RBC 5.72 H Hgb 14.5 H Hct 44.0 H MCV 77 L MCH 25 L MCHC RDW 15.5 H Lymph % (Auto) Baldwin % (Auto) 7.6 H Eos % (Auto) Lymph # (Auto) Eos # (Auto) Seg Neutrophils % 71.3 H Seg Neuts % (Manual) Lymphocytes % (Manual) Seg Neutrophils # Seg Neutrophils # Man Lymphocytes # (Manual) PT INR APTT D-Dimer Heparin Anti-Xa Level Sodium Potassium Chloride Carbon Dioxide BUN 18 H Creatinine Glucose POC Glucose 248 H Magnesium Ferritin AST Lactate Dehydrogenase Troponin T C-Reactive Protein NT-Pro-B Natriuret Pep Albumin Triglycerides HDL Cholesterol Coronavirus (PCR) 02/25/21 02/25/21 02/26/21 17:06 21:25 07:48 WBC RBC 5.24 H Hgb Hct MCV 78 L MCH 26 L MCHC RDW 15.5 H Lymph % (Auto) [place] % (Auto) Eos % (Auto) Lymph # (Auto) Eos # (Auto) Seg Neutrophils % Seg Neuts % (Manual) Lymphocytes % (Manual) Seg Neutrophils # Seg Neutrophils # Man Lymphocytes # (Manual) PT INR APTT D-Dimer Heparin Anti-Xa Level Sodium Potassium Chloride Carbon Dioxide BUN Creatinine Glucose POC Glucose 335 H 256 H Magnesium Ferritin AST Lactate Dehydrogenase Troponin T C-Reactive Protein NT-Pro-B Natriuret Pep Albumin Triglycerides HDL Cholesterol Coronavirus (PCR) 02/26/21 02/26/21 02/26/21 11:15 18:02 21:50 WBC RBC Hgb Hct MCV MCH MCHC RDW Lymph % (Auto) [place] % (Auto) Eos % (Auto) Lymph # (Auto) Eos # (Auto) Seg Neutrophils % Seg Neuts % (Manual) Lymphocytes % (Manual) Seg Neutrophils # Seg Neutrophils # Man Lymphocytes # (Manual) PT INR APTT D-Dimer Heparin Anti-Xa Level Sodium Potassium Chloride Carbon Dioxide BUN Creatinine Glucose POC Glucose 224 H 296 H 259 H Magnesium Ferritin AST Lactate Dehydrogenase Troponin T C-Reactive Protein NT-Pro-B Natriuret Pep Albumin Triglycerides HDL Cholesterol Coronavirus (PCR) 02/27/21 02/27/21 02/27/21 11:47 17:33 21:42 WBC RBC Hgb Hct MCV MCH MCHC RDW Lymph % (Auto) [place] % (Auto) Eos % (Auto) Lymph # (Auto) Eos # (Auto) Seg Neutrophils % Seg Neuts % (Manual) Lymphocytes % (Manual) Seg Neutrophils # Seg Neutrophils # Man Lymphocytes # (Manual) PT INR APTT D-Dimer Heparin Anti-Xa Level Sodium Potassium Chloride Carbon Dioxide BUN Creatinine Glucose POC Glucose 188 H 285 H 268 H Magnesium Ferritin AST Lactate Dehydrogenase Troponin T C-Reactive Protein NT-Pro-B Natriuret Pep Albumin Triglycerides HDL Cholesterol Coronavirus (PCR) 02/28/21 02/28/21 02/28/21 06:13 06:13 07:49 WBC 3.6 L RBC 5.14 H Hgb Hct MCV 78 L MCH 26 L MCHC RDW 16.0 H Lymph % (Auto) [place] % (Auto) 10.3 H Eos % (Auto) 13.7 H Lymph # (Auto) 0.9 L Eos # (Auto) 0.5 H Seg Neutrophils % Seg Neuts % (Manual) Lymphocytes % (Manual) Seg Neutrophils # Seg Neutrophils # Man Lymphocytes # (Manual) PT INR APTT D-Dimer Heparin Anti-Xa Level Sodium Potassium Chloride Carbon Dioxide BUN Creatinine Glucose 166 H POC Glucose 150 H Magnesium Ferritin AST Lactate Dehydrogenase Troponin T C-Reactive Protein NT-Pro-B Natriuret Pep Albumin Triglycerides HDL Cholesterol Coronavirus (PCR) 02/28/21 02/28/21 02/28/21 11:20 15:40 21:42 WBC RBC Hgb Hct MCV MCH MCHC RDW Lymph % (Auto) [place] % (Auto) Eos % (Auto) Lymph # (Auto) Eos # (Auto) Seg Neutrophils % Seg Neuts % (Manual) Lymphocytes % (Manual) Seg Neutrophils # Seg Neutrophils # Man Lymphocytes # (Manual) PT INR APTT D-Dimer Heparin Anti-Xa Level Sodium Potassium Chloride Carbon Dioxide BUN Creatinine Glucose POC Glucose 235 H 253 H 280 H Magnesium Ferritin AST Lactate Dehydrogenase Troponin T C-Reactive Protein NT-Pro-B Natriuret Pep Albumin Triglycerides HDL Cholesterol Coronavirus (PCR) 03/01/21 03/01/21 03/01/21 07:25 12:28 16:22 WBC RBC Hgb Hct MCV MCH MCHC RDW Lymph % (Auto) [place] % (Auto) Eos % (Auto) Lymph # (Auto) Eos # (Auto) Seg Neutrophils % Seg Neuts % (Manual) Lymphocytes % (Manual) Seg Neutrophils # Seg Neutrophils # Man Lymphocytes # (Manual) PT INR APTT D-Dimer Heparin Anti-Xa Level Sodium Potassium Chloride Carbon Dioxide BUN Creatinine Glucose POC Glucose 155 H 204 H 292 H Magnesium Ferritin AST Lactate Dehydrogenase Troponin T C-Reactive Protein NT-Pro-B Natriuret Pep Albumin Triglycerides HDL Cholesterol Coronavirus (PCR) 03/01/21 03/02/21 03/02/21 21:01 08:31 13:17 WBC RBC Hgb Hct MCV MCH MCHC RDW Lymph % (Auto) [place] % (Auto) Eos % (Auto) Lymph # (Auto) Eos # (Auto) Seg Neutrophils % Seg Neuts % (Manual) Lymphocytes % (Manual) Seg Neutrophils # Seg Neutrophils # Man Lymphocytes # (Manual) PT INR APTT D-Dimer Heparin Anti-Xa Level Sodium Potassium Chloride Carbon Dioxide BUN Creatinine Glucose POC Glucose 281 H 107 H 171 H Magnesium Ferritin AST Lactate Dehydrogenase Troponin T C-Reactive Protein NT-Pro-B Natriuret Pep Albumin Triglycerides HDL Cholesterol Coronavirus (PCR) 03/02/21 03/02/21 03/02/21 17:10 21:21 23:57 WBC RBC Hgb Hct MCV MCH MCHC RDW Lymph % (Auto) [place] % (Auto) Eos % (Auto) Lymph # (Auto) Eos # (Auto) Seg Neutrophils % Seg Neuts % (Manual) Lymphocytes % (Manual) Seg Neutrophils # Seg Neutrophils # Man Lymphocytes # (Manual) PT INR APTT D-Dimer 1141.63 H Heparin Anti-Xa Level Sodium Potassium Chloride Carbon Dioxide BUN Creatinine Glucose POC Glucose 186 H 316 H Magnesium Ferritin AST Lactate Dehydrogenase Troponin T C-Reactive Protein NT-Pro-B Natriuret Pep Albumin Triglycerides HDL Cholesterol Coronavirus (PCR) 10/08/21 10/08/21 10/08/21 07:56 11:14 20:18 WBC RBC Hgb Hct MCV MCH MCHC RDW Lymph % (Auto) [place] % (Auto) Eos % (Auto) Lymph # (Auto) Eos # (Auto) Seg Neutrophils % Seg Neuts % (Manual) Lymphocytes % (Manual) Seg Neutrophils # Seg Neutrophils # Man Lymphocytes # (Manual) PT INR APTT D-Dimer Heparin Anti-Xa Level Sodium Potassium Chloride Carbon Dioxide BUN Creatinine Glucose POC Glucose 115 H 175 H 141 H Magnesium Ferritin AST Lactate Dehydrogenase Troponin T C-Reactive Protein NT-Pro-B Natriuret Pep Albumin Triglycerides HDL Cholesterol Coronavirus (PCR)
--- NOTE | 2021-03-04 12:35 | Progress Note ---
Assessment and Plan Assessment and plan: 55-year-old female with PmHx of HTN, uterine fibroids and ex-smoker admitted for acute right MCA CVA and STEMI s/p PCI in RCA, now with acute respiratory distress requiring continuous Bipap. 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 Ventricle Thrombus Acute hypoxic respiratory secondary to COVID COVID-19 Pneumonia Dysphagia Acute kidney injury Sepsis 2/2 bilateral PNA, COVID PNA Anemia Hyperglycemia Hospital Course to date: 02/16/21- Patient AAOX4, with slurred speech and Lt. sided weakness. MRI/MRA brain pending. Remains on continuous Bipap, failed optiflow trial overnight. Bilateral infiltrate noted on today CXR additional lasix was adminstered to optimize Respiratory status, However was D/C due to marginal BP concern for Hypoperfusion. Will reassess in the Am. Plan to wean off Bipap as tolerated. Patient has been NPO due to continuous Bipap. When patient is off bipap nurse to complete bedside swallow screen, if fail will place NGT so pateint can received PO meds. Low grade temp today, TMAX 101.2 in last 24hrs, Bcult pending, on IV abx, ceftriaxone and azithromycin. COVID swab result pending, ID on the case rec to start dexamethasone 6 mg IV/p.o. daily for 10 days. 02/17/21- COVID PCR can back possible, patient was already on Rocephin and emilia thromaci, added Remdesevir per protocol, and IV decadron was initiated. Patient was wean to heated high flow, currently on 70% FiO2 and 40L. Wean O2 supplement as tolerated for a SPO2b goal above 88%. Persistent hyperglycemia, lantus increased to 10 units. Speech eval completed, patient pass swallow, order placed for pureed diet with thin liquid. Will continue to monitor, Heparing gtt per protocol, Am labs ordered. 02/18/21-blood sugars this morning over 300. Ordered 10 units of IV insulin once. Added 5 units scheduled insulin in addition to sliding scale insulin. D iet change to diabetic diet. 02/19/21: Transfer to floor. NG tube d/c. 02/20/21: Will get speech therapy to re-evaluate patient to see if patient can be escalated from pureed diet. Cardiology recommendations noted, BB is increased. Continue supportive management for covid 19 pneumonia. HFNC currently at 35 l/min/fio2=60%. Ok with sats > 88%. Attempted to call Durga but voicemail was to another person in chart. Will attempt to find another number to update . 02/21/2021. Patient currently with 35 L of oxygen with an FiO2 of 70%. Continue statin therapy, beta blockers, and DAPT with plavix and aspirin per cardiology recommendation. Continue intravenous heparin, ultimately will be transitioned to long-term warfarin therapy or a NOAC. 02/22/2021. Patient's oxygen requirement has been decreased to 30 L/min via HFNC with FiO2 50%. Continue per ID and pulmonary recommendations. Patient received Actemra 02/17/2021. Complete remdesivir x5 days. Complete dexamethasone IV for 10 days. Cardiology also recommends continued statin therapy, beta-blockers and DAPT with Plavix and aspirin. Continue IV heparin and transition to long-term warfarin or NOAC per cardiology 02/23/2021. Chest x-ray from yesterday is unchanged. Patient currently on high flow nasal cannula 30 L/min with FiO2 35%. Continue per ID and pulmonary recommendations. Patient received Actemra 02/17/2021. Complete remdesivir x5 days. Complete dexamethasone IV for 10 days. Cardiology also recommends continu ed statin therapy, beta-blockers and DAPT with Plavix and aspirin. Continue IV heparin and transition to long-term warfarin or NOAC per cardiology 02/24/2021. Patient remains on high flow nasal cannula 30 L O2 with FiO2 35%. Patient will complete dexamethasone on 02/26/2021. Patient is s/p remdesivir and Actemra. Continue prone positioning as able. Continue statin therapy, beta- blockers and DAPT with Plavix and aspirin. Continue IV heparin and transition to long-term warfarin or NOAC per cardiology 02/25/2021. Patient on high flow nasal cannula with 15 L and FiO2 of 30%. Continue dexamethasone until tomorrow. Patient is s/p remdesivir and Actemra. Continue prone positioning as able. Continue statin therapy, beta-blockers and DAPT with Plavix and aspirin. Continue IV heparin and transition to long-term warfarin or NOAC per cardiology 02/26/2021. Patient on high flow nasal cannula with 15 L and FiO2 of 30%. Continue dexamethasone for total of 14 days per pulmonary recommendations. Patient is s/p remdesivir and Actemra. Continue prone positioning as able. Continue statin therapy, beta-blockers and DAPT with Plavix and aspirin. Continue IV heparin and transition to long-term warfarin or NOAC per cardiology 02/27/2021. Patient on high flow nasal cannula with 15 L and FiO2 of 25%. Continue dexamethasone for total of 14 days per pulmonary recommendations. Resume dexamethasone 10 mg IV daily for 4 more days. Patient is s/p remdesivir and Actemra. Continue prone positioning as able. Continue statin therapy, beta-blockers and DAPT with Plavix and aspirin. Cardiology initiated anticoagulation with Eliquis. 02/28/21 Patient with Covid-19 She is on Oxygen at 11 l/min, down from 15 l/min yesterday. 03/01/21 Patient with Covid-19 with acute respiratory failure. She is on Oxygen at 4 l/min, down from 11 l/min yesterday. She has been on high flow oxygen previously. Hopefully dc home in few days. To check ambulatory pulse ox prior to discharge. 03/02/21 acute hypoxic respiratory failure COVID-19 pneumonia has improved. She is down to 2 L oxygen by nasal cannula. Blood glucose is uncontrolled. Will increase lantus to 15 units sc qhs. Continue dexamethasone for COVID-19. BP is uncontrolled and will start Norvasc 5 mg p.o. daily. Continue current dose of beta-silas. Continue ASA, plavix and eliquis. Had initial elevated d-dimer, will recheck d-dimer. Complains of constipation and will start daily MiraLAX, continue as needed Colace 03/03/2021. Patient's blood glucose has improved today. She has completed dexamethasone and insulin dose may need to be decreased. HbA1c ordered since admission is pending and has been reordered today. Possible new diagnosis of diabetes mellitus type 2. Blood pressure is acceptable. Still on 2 L oxygen by nasal cannula, may need to be discharged with home oxygen. Possible discharge home tomorrow. 03/04/2021 Patient with Covid-19 with acute resp failure. Hyperglycemia. A1C ordered. To go home after hospital bed, Oxygen arranged. Discontinue Humulin R 7 Units QAC and HS since off steroids and blood glucose low normal. History Interval history: Shortness of breath Cough Asking when she will go home Hospitalist Physical - Physical exam Narrative exam: Gen: Not in acute distress, lying in bed, On Oxygen by NC HEENT: Normocephalic, atraumatic Neck: supple Lungs: Bilateral rales, no wheeze Heart: S1 and S2 reg, no murmurs, rubs or gallop Abd:soft, non-tender, non distended, normal bowel sounds Ext: No edema, clubbing or cyanosis Neuro: Awake, alert, oriented X 3, moves all extremities - Constitutional Vitals: Temp Pulse Resp BP Pulse Ox 98.0 F 63 20 119/64 100 03/04/21 11:25 03/04/21 11:25 03/04/21 11:25 03/04/21 11:25 03/04/21 11:25 General appearance: Present: no acute distress, obese HEART Score - HEART Score Troponin: Troponin T 0.992 ng/mL (0.00-0.029) H* 02/15/21 03:55 Results - Labs CBC & Chem 7: 02/28/21 06:13 02/28/21 06:13 Labs: Laboratory Last Values WBC 3.6 K/mm3 (4.5-11.0) L 02/28/21 06:13 RBC 5.14 M/mm3 (3.65-5.03) H 02/28/21 06:13 Hgb 13.2 gm/dl (10.1-14.3) 02/28/21 06:13 Hct 40.2 % (30.3-42.9) 02/28/21 06:13 MCV 78 fl (79-97) L 02/28/21 06:13 MCH 26 pg (28-32) L 02/28/21 06:13 MCHC 33 % (30-34) 02/28/21 06:13 RDW 16.0 % (13.2-15.2) H 02/28/21 06:13 Plt Count 165 K/mm3 (140-440) 02/28/21 06:13 Lymph % (Auto) 23.7 % (13.4-35.0) 02/28/21 06:13 [place] % (Auto) 10.3 % (0.0-7.3) H 02/28/21 06:13 Eos % (Auto) 13.7 % (0.0-4.3) H 02/28/21 06:13 Baso % (Auto) 0.9 % (0.0-1.8) 02/28/21 06:13 Lymph # (Auto) 0.9 K/mm3 (1.2-5.4) L 02/28/21 06:13 [place] # (Auto) 0.4 K/mm3 (0.0-0.8) 02/28/21 06:13 Eos # (Auto) 0.5 K/mm3 (0.0-0.4) H 02/28/21 06:13 Baso # (Auto) 0.0 K/mm3 (0.0-0.1) 02/28/21 06:13 Add Manual Diff Complete 02/20/21 06:39 Total Counted 100 02/20/21 06:39 Seg Neutrophils % 51.4 % (40.0-70.0) 02/28/21 06:13 Seg Neuts % (Manual) 88.0 % (40.0-70.0) H 02/20/21 06:39 Lymphocytes % (Manual) 4.0 % (13.4-35.0) L 02/20/21 06:39 Reactive Lymphs % (Man) 2.0 % 02/20/21 06:39 Monocytes % (Manual) 3.0 % (0.0-7.3) 02/20/21 06:39 Eosinophils % (Manual) 1.0 % (0.0-4.3) 02/20/21 06:39 Myelocytes % 2.0 % 02/20/21 06:39 Nucleated RBC % Not Reportable 02/20/21 06:39 Seg Neutrophils # 1.9 K/mm3 (1.8-7.7) 02/28/21 06:13 Seg Neutrophils # Man 5.5 K/mm3 (1.8-7.7) 02/20/21 06:39 Band Neutrophils # 0.0 K/mm3 02/20/21 06:39 Lymphocytes # (Manual) 0.2 K/mm3 (1.2-5.4) L 02/20/21 06:39 Abs React Lymphs (Man) 0.1 K/mm3 02/20/21 06:39 Monocytes # (Manual) 0.2 K/mm3 (0.0-0.8) 02/20/21 06:39 Eosinophils # (Manual) 0.1 K/mm3 (0.0-0.4) 02/20/21 06:39 Basophils # (Manual) 0.0 K/mm3 (0.0-0.1) 02/20/21 06:39 Metamyelocytes # 0.0 K/mm3 02/20/21 06:39 Myelocytes # 0.1 K/mm3 02/20/21 06:39 Promyelocytes # 0.0 K/mm3 02/20/21 06:39 Blast Cells # 0.0 K/mm3 02/20/21 06:39 WBC Morphology Not Reportable 02/20/21 06:39 Hypersegmented Neuts Not Reportable 02/20/21 06:39 Hyposegmented Neuts Not Reportable 02/20/21 06:39 Hypogranular Neuts Not Reportable 02/20/21 06:39 Smudge Cells Not Reportable 02/20/21 06:39 Toxic Granulation Not Reportable 02/20/21 06:39 Toxic Vacuolation Not Reportable 02/20/21 06:39 Dohle Bodies Not Reportable 02/20/21 06:39 Pelger-Huet Anomaly Not Reportable 02/20/21 06:39 Aba Rods Not Reportable 02/20/21 06:39 Platelet Estimate Consistent w auto 02/20/21 06:39 Clumped Platelets Not Reportable 02/20/21 06:39 Plt Clumps, EDTA Not Reportable 02/20/21 06:39 Large Platelets Not Reportable 02/20/21 06:39 Giant Platelets Not Reportable 02/20/21 06:39 Platelet Satelliting Not Reportable 02/20/21 06:39 Plt Morphology Comment Not Reportable 02/20/21 06:39 RBC Morphology Normal 02/20/21 06:39 Dimorphic RBCs Not Reportable 02/20/21 06:39 Polychromasia Not Reportable 02/20/21 06:39 Hypochromasia Not Reportable 02/20/21 06:39 Poikilocytosis Not Reportable 02/20/21 06:39 Anisocytosis Not Reportable 02/20/21 06:39 Microcytosis Not Reportable 02/20/21 06:39 Macrocytosis Not Reportable 02/20/21 06:39 Spherocytes Not Reportable 02/20/21 06:39 Pappenheimer Bodies Not Reportable 02/20/21 06:39 Sickle Cells Not Reportable 02/20/21 06:39 Target Cells Not Reportable 02/20/21 06:39 Tear Drop Cells Not Reportable 02/20/21 06:39 Ovalocytes Not Reportable 02/20/21 06:39 Helmet Cells Not Reportable 02/20/21 06:39 Bang-Jauca Bodies Not Reportable 02/20/21 06:39 Hillister Rings Not Reportable 02/20/21 06:39 Santana Cells Not Reportable 02/20/21 06:39 Bite Cells Not Reportable 02/20/21 06:39 Crenated Cell Not Reportable 02/20/21 06:39 Elliptocytes Not Reportable 02/20/21 06:39 Acanthocytes (Spur) Not Reportable 02/20/21 06:39 Rouleaux Not Reportable 02/20/21 06:39 Hemoglobin C Crystals Not Reportable 02/20/21 06:39 Schistocytes Not Reportable 02/20/21 06:39 Malaria parasites Not Reportable 02/20/21 06:39 Alberto Bodies Not Reportable 02/20/21 06:39 Hem Pathologist Commnt No 02/20/21 06:39 PT 14.1 Sec. (12.2-14.9) 02/22/21 15:12 INR 1.03 (0.87-1.13) 02/22/21 15:12 APTT 50.0 Sec. (24.2-36.6) H 02/22/21 15:12 Thrombin Time 17.2 Sec. (15.1-19.6) 02/14/21 20:21 D-Dimer 1141.63 ng/mlDDU (0-234) H 03/02/21 23:57 Heparin Anti-Xa Level 0.32 U.I./ml (0.3-0.7) 02/22/21 06:50 Sodium 141 mmol/L (137-145) 02/28/21 06:13 Potassium 4.1 mmol/L (3.6-5.0) 02/28/21 06:13 Chloride 102.8 mmol/L (98-107) 02/28/21 06:13 Carbon Dioxide 29 mmol/L (22-30) 02/28/21 06:13 Anion Gap 13 mmol/L 02/28/21 06:13 BUN 16 mg/dL (7-17) 02/28/21 06:13 Creatinine 0.7 mg/dL (0.6-1.2) 02/28/21 06:13 Creatinine 0.7 mg/dL (0.6-1.2) 02/28/21 06:13 Estimated GFR > 60 ml/min 02/28/21 06:13 Estimated GFR > 60 ml/min 02/28/21 06:13 BUN/Creatinine Ratio 23 % 02/28/21 06:13 Glucose 166 mg/dL (65-100) H 02/28/21 06:13 POC Glucose 87 mg/dL (70-105) 03/04/21 12:06 Calcium 9.3 mg/dL (8.4-10.2) 02/28/21 06:13 Phosphorus 3.30 mg/dL (2.5-4.5) 02/22/21 06:50 Magnesium 1.80 mg/dL (1.7-2.3) 02/22/21 06:50 Ferritin 915.5 ng/mL (10.0-200.0) H 02/20/21 06:39 Total Bilirubin 0.30 mg/dL (0.1-1.2) 02/20/21 06:39 AST 36 units/L (5-40) 02/20/21 06:39 ALT 27 units/L (7-56) 02/20/21 06:39 Alkaline Phosphatase 74 units/L (35-129) 02/20/21 06:39 Lactate Dehydrogenase 645 units/L (91-180) H 02/20/21 06:39 Troponin T 0.992 ng/mL (0.00-0.029) H* 02/15/21 03:55 C-Reactive Protein 3.60 mg/dL (0.00-1.30) H 02/20/21 06:39 NT-Pro-B Natriuret Pep 4086 pg/mL (0-900) H 02/15/21 08:38 Total Protein 7.0 g/dL (6.3-8.2) 02/20/21 06:39 Albumin 3.1 g/dL (3.9-5) L 02/20/21 06:39 Albumin/Globulin Ratio 0.8 % 02/20/21 06:39 Triglycerides 292 mg/dL (2-149) H 02/14/21 20:21 Cholesterol 199 mg/dL (50-199) 02/14/21 20:21 LDL Cholesterol Direct 105 mg/dL (50-130) 02/14/21 20:21 HDL Cholesterol 23 mg/dL (40-59) L 02/14/21 20:21 Cholesterol/HDL Ratio 8.65 % 02/14/21 20:21 Procalcitonin 0.59 ng/mL (<0.15) 02/15/21 18:20 Coronavirus (PCR) Positive (Negative) A 02/16/21 Unknown Blood Type A POSITIVE 02/14/21 20: Antibody Screen Negative 02/14/21 20:21 Taylor/IV: Voiding Method External Female Catheter Active Medications - Current Medications Current Medications: Generic Name Dose Route Start Last Admin Trade Name Freq PRN Reason Stop Dose Admin Acetaminophen 650 mg 02/16/21 01:00 02/16/21 02:09 Acetaminophen 650 Mg Rect Supp [place] 650 mg Q6H PRN Administration Pain, Mild (1-3) Hydrocodone Bitart/Acetaminophen 1 each 02/14/21 21:57 03/04/21 08:26 Hydrocodone/Acetaminophen 5-325 Mg Tab PO 1 each Q6H PRN Administration Pain, Moderate (4-6) Albuterol 2.5 mg 02/14/21 21:54 Albuterol 2.5 Mg/3 Ml Nebu IH Q4HRT PRN Shortness Of Breath Amlodipine Besylate 5 mg 03/02/21 13:00 03/04/21 09:37 Amlodipine 5 Mg Tab PO 5 mg QDAY KARYN Administration Lipase/Protease/Amylase 1 each 02/17/21 12:34 Lipase 10,500/Protease 25,000/Amylase 43,750 (Units) Dr Betts FEEDTUBE PRN PRN For Clogged Feeding Tube Apixaban 2.5 mg 02/22/21 22:00 03/04/21 09:36 Apixaban 2.5 Mg Tab PO 2.5 mg Q12HR KARYN Administration Protocol Aspirin 81 mg 02/16/21 12:00 03/04/21 09:36 Aspirin 81 Mg Tab Chew PO 81 mg QDAY KARYN Administration Atorvastatin Calcium 80 mg 02/15/21 22:00 03/03/21 22:21 Atorvastatin 40 Mg Tab PO 80 mg QHS KARYN Administration Clopidogrel Bisulfate 75 mg 02/15/21 10:00 03/04/21 09:36 Clopidogrel 75 Mg Tab PO 75 mg QDAY KARYN Administration Dextrose 0 ml 02/14/21 21:54 Dextrose 50% In Water (25gm) 50 Ml Syringe IV Q30MIN PRN Hypoglycemia Protocol Docusate Sodium 100 mg 02/14/21 22:04 03/04/21 08:26 Docusate Sodium 100 Mg Cap PO 100 mg DAILY PRN Administration Constip unreliev by MOM/or NPO Famotidine 20 mg 02/21/21 10:00 03/04/21 10:16 Famotidine 20 Mg Tab PO 20 mg BID KARYN Administration Ferrous Sulfate 300 mg 02/21/21 22:00 03/04/21 10:16 Ferrous Sulfate 300 Mg (60mg Elemental Iron) / 5 Ml Oral Liqd FEEDTUBE 300 mg BID KARYN Administration Guaifenesin 200 mg 02/26/21 22:54 03/03/21 22:23 Guaifenesin 100 Mg/5 Ml Oral Liqd PO 200 mg Q4H PRN Administration Cough Hydromorphone HCl 0.5 mg 02/14/21 21:54 02/28/21 20:15 Hydromorphone 1 Mg/1 Ml Inj IV 0.5 mg Q3H PRN Administration Pain , Severe (7-10) Hydrophilic Ointment 1 applic 02/20/21 09:00 Lip Therapy Vaseline TP DIRECT PRN Dry Lips Insulin Glargine 15 units 03/02/21 12:24 03/03/21 22:22 Insulin Glargine 100 Units/Ml SUB-Q 15 units QHS [facility] Administration Insulin Human Lispro 0 unit 02/17/21 22:00 03/04/21 08:14 Insulin Lispro 100 Unit/Ml SUB-Q Not Given [facility] Protocol Insulin Human Regular 7 units 02/22/21 16:30 03/04/21 08:27 Insulin Regular, Human 100 Units/1 Ml SUB-Q 7 units ACHS [facility] Administration Melatonin 5 mg 02/16/21 17:53 03/03/21 22:22 Melatonin 5 Mg Tab PO 5 mg QHS PRN Administration Sleep Metoprolol Tartrate 50 mg 02/19/21 22:00 03/04/21 09:36 Metoprolol Tartrate 50 Mg Tab PO 50 mg BID KARYN Administration Morphine Sulfate 2 mg 02/14/21 21:54 02/26/21 03:48 Morphine 2 Mg/1 Ml Inj IV 2 mg Q4H PRN Administration Pain, Moderate (4-6) Ondansetron HCl 4 mg 02/14/21 21:54 02/28/21 20:14 Ondansetron 4 Mg/2 Ml Inj IV 4 mg Q8H PRN Administration Nausea And Vomiting Polyethylene Glycol 17 gm 03/02/21 13:00 03/04/21 09:37 Polyethylene Glycol 3350 17 Gm Powder PO 17 gm QDAY KARYN Administration Simple Syrup 15 ml 02/17/21 12:34 Simple Syrup 15 Ml FEEDTUBE PRN PRN Hypoglycemia Simple Syrup 30 ml 02/17/21 12:34 Simple Syrup 15 Ml FEEDTUBE PRN PRN Hypoglycemia Sodium Bicarbonate 325 mg 02/17/21 12:34 Sodium Bicarbonate 325 Mg Tab FEEDTUBE PRN PRN For Clogged Feeding Tube Sodium Chloride 10 ml 02/14/21 22:00 03/04/21 10:16 Sodium Chloride 0.9% 10 Ml Flush Syringe IV 10 ml BID KARYN Administration Sodium Chloride 10 ml 02/14/21 21:54 Sodium Chloride 0.9% 10 Ml Flush Syringe IV PRN PRN LINE FLUSH Nutrition/Malnutrition Assess - Dietary Evaluation Nutrition/Malnutrition Findings: Nutrition Notes Start: 02/15/21 12:03 Freq: Status: Active Protocol: Document 02/27/21 18:14 GB (Rec: 02/27/21 18:22 GB [id number]) Nutrition Notes Initial or Follow up Reassessment Current Diagnosis Diabetes,Hypertension, Respiratory Failure,Stroke Other Pertinent Diagnosis hyperglycemia, STEMI Current Diet Pureed w/dietary supplements BID Labs/Tests 02/25: BUN 18 Pertinent Medications ferrous sulfate, NaCl/Hep, NaCl, remdesivir Height 5 ft 4 in Weight 91.6 kg [place] Body Weight (kg) 54.54 BMI 34.7 Weight change and time frame 02/14: 104.3 kg 02/26: 91.6 kg change of -12.7kg for -12% loss r/t Respiratory failure complications Weight Status Obese Subjective/Other Information Diet texture Pureed. Per chart: po intake of meals average 50-100%. Adding glucerna BID for additional calories/protein while po intake recovers. Percent of energy/protein needs met: PO intake of meals and supplement 50% or greater will meet 75% or greater of estimated energy needs. Burn Absent Trauma Absent GI Symptoms None Difficulty In Swallowing Food Allergy No Current % PO Good (75-100%) Minimum of two criteria No #2 Nutrition Diagnosis Inadequate energy intake Comments: 02/27: Diet texture Pureed, supplement beverages BID, PO intake 50-100% Etiology DM, collapse As Evidenced by Signs and Symptoms Recent advancement to PO intake with mechanically altered texture diet, NG d/c , need for nutritional supplement beverage to meet estimated energy needs. Diagnosis Progress(for reassessment Resolved documentation) #1 Nutrition Diagnosis Other: (Specify in comment below) Comments: Comprimised PO intake, dependency for enteral feed to meet nutrition needs Etiology DM, collapse, As Evidenced by Signs and Symptoms not able to eat PO at this time, MD order for TF Diagnosis Progress(for reassessment Resolved documentation) Is patient on ventilator? No Is Patient Ambulatory and/or Out of Bed Yes REE-([place]-ambulatory/OOB) [ 1938.300 [id number]] Kcal/Kg value to use for calculation 17 Approximate Energy Requirements Using 1557 kcal/Kg Calculation Used for Recommendations Kcal/kg Additional Notes Protein: 0.7-1 g/kg @ 104k-104g Fluids: 1 ml/kcal or per MD Nutrition Intervention Change Diet Order: Continue with current diet advancing texture per AUDIT ANALYST Nutrition Support: n/a Add Supplement/Snack (indicate name/kcal glucerna BID /protein ) Provides kCal: 440 Provides Protein (gm) 20 Goal #1 PO intake of meals to improve to 50% or greater during LOS 02/27: met, continues Goal #2 weight to maintain within -3% current weight for LOS 02/27: weight loss of -12% r/t respiratory failure (covid) complications Goal #3 PO intake of nutritional supplement beverage to be 50% or greater BID daily during LOS Follow-Up By: 03/06/21 Additional Comments f/u: po intake, weight
[2021-03-04] MEDS: guaiFENesin 100 MG/5 ML ORAL LIQD PO PRN (18:27)
[2021-03-04] MEDS: ZOLPIDEM 5 MG TAB PO PRN (22:08)
[2021-03-04] MEDS: INSULIN GLARGINE 100 UNITS/ML SUB-Q SCH (22:08)
[2021-03-05] MEDS: FERROUS SULFATE 300 MG (60MG Elemental Iron) / 5 mL ORAL LIQD FEEDTUBE SCH ×3 (09:45→22:04)
[2021-03-05] MEDS: amLODIPine 5 MG TAB PO SCH (09:45)
[2021-03-05] MEDS: ASPIRIN 81 MG TAB CHEW PO SCH (09:45)
[2021-03-05] MEDS: METOPROLOL TARTRATE 50 MG TAB PO SCH ×2 (09:45→22:00)
[2021-03-05] MEDS: APIXABAN 2.5 MG TAB PO SCH ×2 (09:45→22:03)
[2021-03-05] MEDS: CLOPIDOGREL 75 MG TAB PO SCH (09:45)
[2021-03-05] MEDS: FAMOTIDINE 20 MG TAB PO SCH ×2 (09:45→22:17)
[2021-03-05] MEDS: POLYETHYLENE GLYCOL 3350 17 GM POWDER PO SCH (09:46)
[2021-03-05] MEDS: INSULIN LISPRO 100 UNIT/ML SUB-Q SCH ×4 (09:46→22:00)
[2021-03-05] MEDS: HYDROcodone/ACETAMINOPHEN 5-325 MG TAB PO PRN (09:48)
--- NOTE | 2021-03-05 10:27 | Progress Note ---
Assessment and Plan - Patient Problems (1) STEMI (ST elevation myocardial infarction) Current Visit: Yes Status: Acute Plan to address problem: Status post coronary stent to the distal right coronary artery for acute right coronary embolic occlusion in the setting of acute Covid viral pneumonia. Cardiac status stable and asymptomatic, continue medical therapy as directed, will follow intermittently. (2) Venous thromboembolism Current Visit: Yes Status: Acute Plan to address problem: Patient also has evidence of venous thromboembolism with thrombus and transition in the right ventricle. In addition to dual oral antiplatelet therapy post right coronary stenting, she is on triple therapy with addition of Eliquis. Subjective Date of service: 03/05/21 Principal diagnosis: Covid-19 Interval history: Patient is comfortable, no acute distress, no cardiac complaints, anticipated discharge is planned for tomorrow. Objective Vital Signs Temp Pulse Resp BP BP Pulse Ox 03/05/21 05:09 97.5 F L 70 18 131/76 94 03/04/21 22:00 94 03/04/21 21:34 99.1 F 88 18 150/103 98 03/04/21 21:24 98.6 F 65 18 105/68 96 03/04/21 17:00 97 F L 69 24 138/79 03/04/21 11:25 98.0 F 63 20 119/64 100 - Physical Examination Narrative exam: Full physical exam is deferred due to acute Covid pneumonia. General: No Apparent Distress HEENT: Positive: PERRL Neck: Positive: trachea midline. Negative: JVD/HJR Neuro: Positive: Other (Left hemiparesis) Abdomen: Positive: Unremarkable Extremities: Absent: edema - Imaging and Cardiology Echo: other (02/14/2021 Echo - Normal LV and RV systolic function, thrombus in RV)
[2021-03-05] MEDS ORDERED: FLEET ENEMA PR ONE (11:01)
--- NOTE | 2021-03-05 11:51 | Progress Note ---
Assessment and Plan Assessment and plan: 55-year-old female with PmHx of HTN, uterine fibroids and ex-smoker admitted for acute right MCA CVA and STEMI s/p PCI in RCA, now with acute respiratory distress requiring continuous Bipap. 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 Ventricle Thrombus Acute hypoxic respiratory secondary to COVID COVID-19 Pneumonia Dysphagia Acute kidney injury Sepsis 2/2 bilateral PNA, COVID PNA Anemia Hyperglycemia Hospital Course to date: 02/16/21- Patient AAOX4, with slurred speech and Lt. sided weakness. MRI/MRA brain pending. Remains on continuous Bipap, failed optiflow trial overnight. Bilateral infiltrate noted on today CXR additional lasix was adminstered to optimize Respiratory status, However was D/C due to marginal BP concern for Hypoperfusion. Will reassess in the Am. Plan to wean off Bipap as tolerated. Patient has been NPO due to continuous Bipap. When patient is off bipap nurse to complete bedside swallow screen, if fail will place NGT so pateint can received PO meds. Low grade temp today, TMAX 101.2 in last 24hrs, Bcult pending, on IV abx, ceftriaxone and azithromycin. COVID swab result pending, ID on the case rec to start dexamethasone 6 mg IV/p.o. daily for 10 days. 02/17/21- COVID PCR can back possible, patient was already on Rocephin and emilia thromaci, added Remdesevir per protocol, and IV decadron was initiated. Patient was wean to heated high flow, currently on 70% FiO2 and 40L. Wean O2 supplement as tolerated for a SPO2b goal above 88%. Persistent hyperglycemia, lantus increased to 10 units. Speech eval completed, patient pass swallow, order placed for pureed diet with thin liquid. Will continue to monitor, Heparing gtt per protocol, Am labs ordered. 02/18/21-blood sugars this morning over 300. Ordered 10 units of IV insulin once. Added 5 units scheduled insulin in addition to sliding scale insulin. D iet change to diabetic diet. 02/19/21: Transfer to floor. NG tube d/c. 02/20/21: Will get speech therapy to re-evaluate patient to see if patient can be escalated from pureed diet. Cardiology recommendations noted, BB is increased. Continue supportive management for covid 19 pneumonia. HFNC currently at 35 l/min/fio2=60%. Ok with sats > 88%. Attempted to call Durga but voicemail was to another person in chart. Will attempt to find another number to update . 02/21/2021. Patient currently with 35 L of oxygen with an FiO2 of 70%. Continue statin therapy, beta blockers, and DAPT with plavix and aspirin per cardiology recommendation. Continue intravenous heparin, ultimately will be transitioned to long-term warfarin therapy or a NOAC. 02/22/2021. Patient's oxygen requirement has been decreased to 30 L/min via HFNC with FiO2 50%. Continue per ID and pulmonary recommendations. Patient received Actemra 02/17/2021. Complete remdesivir x5 days. Complete dexamethasone IV for 10 days. Cardiology also recommends continued statin therapy, beta-blockers and DAPT with Plavix and aspirin. Continue IV heparin and transition to long-term warfarin or NOAC per cardiology 02/23/2021. Chest x-ray from yesterday is unchanged. Patient currently on high flow nasal cannula 30 L/min with FiO2 35%. Continue per ID and pulmonary recommendations. Patient received Actemra 02/17/2021. Complete remdesivir x5 days. Complete dexamethasone IV for 10 days. Cardiology also recommends continu ed statin therapy, beta-blockers and DAPT with Plavix and aspirin. Continue IV heparin and transition to long-term warfarin or NOAC per cardiology 02/24/2021. Patient remains on high flow nasal cannula 30 L O2 with FiO2 35%. Patient will complete dexamethasone on 02/26/2021. Patient is s/p remdesivir and Actemra. Continue prone positioning as able. Continue statin therapy, beta- blockers and DAPT with Plavix and aspirin. Continue IV heparin and transition to long-term warfarin or NOAC per cardiology 02/25/2021. Patient on high flow nasal cannula with 15 L and FiO2 of 30%. Continue dexamethasone until tomorrow. Patient is s/p remdesivir and Actemra. Continue prone positioning as able. Continue statin therapy, beta-blockers and DAPT with Plavix and aspirin. Continue IV heparin and transition to long-term warfarin or NOAC per cardiology 02/26/2021. Patient on high flow nasal cannula with 15 L and FiO2 of 30%. Continue dexamethasone for total of 14 days per pulmonary recommendations. Patient is s/p remdesivir and Actemra. Continue prone positioning as able. Continue statin therapy, beta-blockers and DAPT with Plavix and aspirin. Continue IV heparin and transition to long-term warfarin or NOAC per cardiology 02/27/2021. Patient on high flow nasal cannula with 15 L and FiO2 of 25%. Continue dexamethasone for total of 14 days per pulmonary recommendations. Resume dexamethasone 10 mg IV daily for 4 more days. Patient is s/p remdesivir and Actemra. Continue prone positioning as able. Continue statin therapy, beta-blockers and DAPT with Plavix and aspirin. Cardiology initiated anticoagulation with Eliquis. 02/28/21 Patient with Covid-19 She is on Oxygen at 11 l/min, down from 15 l/min yesterday. 03/01/21 Patient with Covid-19 with acute respiratory failure. She is on Oxygen at 4 l/min, down from 11 l/min yesterday. She has been on high flow oxygen previously. Hopefully dc home in few days. To check ambulatory pulse ox prior to discharge. 03/02/21 acute hypoxic respiratory failure COVID-19 pneumonia has improved. She is down to 2 L oxygen by nasal cannula. Blood glucose is uncontrolled. Will increase lantus to 15 units sc qhs. Continue dexamethasone for COVID-19. BP is uncontrolled and will start Norvasc 5 mg p.o. daily. Continue current dose of beta-silas. Continue ASA, plavix and eliquis. Had initial elevated d-dimer, will recheck d-dimer. Complains of constipation and will start daily MiraLAX, continue as needed Colace 03/03/2021. Patient's blood glucose has improved today. She has completed dexamethasone and insulin dose may need to be decreased. HbA1c ordered since admission is pending and has been reordered today. Possible new diagnosis of diabetes mellitus type 2. Blood pressure is acceptable. Still on 2 L oxygen by nasal cannula, may need to be discharged with home oxygen. Possible discharge home tomorrow. 03/04/2021 Patient with Covid-19 with acute resp failure. Hyperglycemia. A1C ordered. To go home after hospital bed, Oxygen arranged. Discontinue Humulin R 7 Units QAC and HS since off steroids and blood glucose low normal. 03/05/21 Patient with Covid-19 with acute resp failure. Hyperglycemia. A1C ordered, not done yet. Hospital bed not yet delivered/ Likely dc home tomorrow. History Interval history: Shortness of breath Cough Hospitalist Physical - Physical exam Narrative exam: Gen: Not in acute distress, lying in bed, On Oxygen by NC HEENT: Normocephalic, atraumatic Neck: supple Lungs: Bilateral rales, no wheeze Heart: S1 and S2 reg, no murmurs, rubs or gallop Abd:soft, non-tender, non distended, normal bowel sounds Ext: No edema, clubbing or cyanosis Neuro: Awake, alert, oriented X 3, moves all extremities - Constitutional Vitals: Temp Pulse Resp BP Pulse Ox 98.2 F 61 18 113/64 99 03/05/21 11:47 03/05/21 11:47 03/05/21 11:47 03/05/21 11:47 03/05/21 11:47 General appearance: Present: no acute distress, obese HEART Score - HEART Score Troponin: Troponin T 0.992 ng/mL (0.00-0.029) H* 02/15/21 03:55 Results - Labs CBC & Chem 7: 02/28/21 06:13 02/28/21 06:13 Labs: Laboratory Last Values WBC 3.6 K/mm3 (4.5-11.0) L 02/28/21 06:13 RBC 5.14 M/mm3 (3.65-5.03) H 02/28/21 06:13 Hgb 13.2 gm/dl (10.1-14.3) 02/28/21 06:13 Hct 40.2 % (30.3-42.9) 02/28/21 06:13 MCV 78 fl (79-97) L 02/28/21 06:13 MCH 26 pg (28-32) L 02/28/21 06:13 MCHC 33 % (30-34) 02/28/21 06:13 RDW 16.0 % (13.2-15.2) H 02/28/21 06:13 Plt Count 165 K/mm3 (140-440) 02/28/21 06:13 Lymph % (Auto) 23.7 % (13.4-35.0) 02/28/21 06:13 Phillips % (Auto) 10.3 % (0.0-7.3) H 02/28/21 06:13 Eos % (Auto) 13.7 % (0.0-4.3) H 02/28/21 06:13 Baso % (Auto) 0.9 % (0.0-1.8) 02/28/21 06:13 Lymph # (Auto) 0.9 K/mm3 (1.2-5.4) L 02/28/21 06:13 Phillips # (Auto) 0.4 K/mm3 (0.0-0.8) 02/28/21 06:13 Eos # (Auto) 0.5 K/mm3 (0.0-0.4) H 02/28/21 06:13 Baso # (Auto) 0.0 K/mm3 (0.0-0.1) 02/28/21 06:13 Add Manual Diff Complete 02/20/21 06:39 Total Counted 100 02/20/21 06:39 Seg Neutrophils % 51.4 % (40.0-70.0) 02/28/21 06:13 Seg Neuts % (Manual) 88.0 % (40.0-70.0) H 02/20/21 06:39 Lymphocytes % (Manual) 4.0 % (13.4-35.0) L 02/20/21 06:39 Reactive Lymphs % (Man) 2.0 % 02/20/21 06:39 Monocytes % (Manual) 3.0 % (0.0-7.3) 02/20/21 06:39 Eosinophils % (Manual) 1.0 % (0.0-4.3) 02/20/21 06:39 Myelocytes % 2.0 % 02/20/21 06:39 Nucleated RBC % Not Reportable 02/20/21 06:39 Seg Neutrophils # 1.9 K/mm3 (1.8-7.7) 02/28/21 06:13 Seg Neutrophils # Man 5.5 K/mm3 (1.8-7.7) 02/20/21 06:39 Band Neutrophils # 0.0 K/mm3 02/20/21 06:39 Lymphocytes # (Manual) 0.2 K/mm3 (1.2-5.4) L 02/20/21 06:39 Abs React Lymphs (Man) 0.1 K/mm3 02/20/21 06:39 Monocytes # (Manual) 0.2 K/mm3 (0.0-0.8) 02/20/21 06:39 Eosinophils # (Manual) 0.1 K/mm3 (0.0-0.4) 02/20/21 06:39 Basophils # (Manual) 0.0 K/mm3 (0.0-0.1) 02/20/21 06:39 Metamyelocytes # 0.0 K/mm3 02/20/21 06:39 Myelocytes # 0.1 K/mm3 02/20/21 06:39 Promyelocytes # 0.0 K/mm3 02/20/21 06:39 Blast Cells # 0.0 K/mm3 02/20/21 06:39 WBC Morphology Not Reportable 02/20/21 06:39 Hypersegmented Neuts Not Reportable 02/20/21 06:39 Hyposegmented Neuts Not Reportable 02/20/21 06:39 Hypogranular Neuts Not Reportable 02/20/21 06:39 Smudge Cells Not Reportable 02/20/21 06:39 Toxic Granulation Not Reportable 02/20/21 06:39 Toxic Vacuolation Not Reportable 02/20/21 06:39 Dohle Bodies Not Reportable 02/20/21 06:39 Pelger-Huet Anomaly Not Reportable 02/20/21 06:39 Aba Rods Not Reportable 02/20/21 06:39 Platelet Estimate Consistent w auto 02/20/21 06:39 Clumped Platelets Not Reportable 02/20/21 06:39 Plt Clumps, EDTA Not Reportable 02/20/21 06:39 Large Platelets Not Reportable 02/20/21 06:39 Giant Platelets Not Reportable 02/20/21 06:39 Platelet Satelliting Not Reportable 02/20/21 06:39 Plt Morphology Comment Not Reportable 02/20/21 06:39 RBC Morphology Normal 02/20/21 06:39 Dimorphic RBCs Not Reportable 02/20/21 06:39 Polychromasia Not Reportable 02/20/21 06:39 Hypochromasia Not Reportable 02/20/21 06:39 Poikilocytosis Not Reportable 02/20/21 06:39 Anisocytosis Not Reportable 02/20/21 06:39 Microcytosis Not Reportable 02/20/21 06:39 Macrocytosis Not Reportable 02/20/21 06:39 Spherocytes Not Reportable 02/20/21 06:39 Pappenheimer Bodies Not Reportable 02/20/21 06:39 Sickle Cells Not Reportable 02/20/21 06:39 Target Cells Not Reportable 02/20/21 06:39 Tear Drop Cells Not Reportable 02/20/21 06:39 Ovalocytes Not Reportable 02/20/21 06:39 Helmet Cells Not Reportable 02/20/21 06:39 [place] Bodies Not Reportable 02/20/21 06:39 [place] Rings Not Reportable 02/20/21 06:39 [place] Cells Not Reportable 02/20/21 06:39 Bite Cells Not Reportable 02/20/21 06:39 Crenated Cell Not Reportable 02/20/21 06:39 Elliptocytes Not Reportable 02/20/21 06:39 Acanthocytes (Spur) Not Reportable 02/20/21 06:39 Rouleaux Not Reportable 02/20/21 06:39 Hemoglobin C Crystals Not Reportable 02/20/21 06:39 Schistocytes Not Reportable 02/20/21 06:39 Malaria parasites Not Reportable 02/20/21 06:39 Alberto Bodies Not Reportable 02/20/21 06:39 Hem Pathologist Commnt No 02/20/21 06:39 PT 14.1 Sec. (12.2-14.9) 02/22/21 15:12 INR 1.03 (0.87-1.13) 02/22/21 15:12 APTT 50.0 Sec. (24.2-36.6) H 02/22/21 15:12 Thrombin Time 17.2 Sec. (15.1-19.6) 02/14/21 20:21 D-Dimer 1141.63 ng/mlDDU (0-234) H 03/02/21 23:57 Heparin Anti-Xa Level 0.32 U.I./ml (0.3-0.7) 02/22/21 06:50 Sodium 141 mmol/L (137-145) 02/28/21 06:13 Potassium 4.1 mmol/L (3.6-5.0) 02/28/21 06:13 Chloride 102.8 mmol/L (98-107) 02/28/21 06:13 Carbon Dioxide 29 mmol/L (22-30) 02/28/21 06:13 Anion Gap 13 mmol/L 02/28/21 06:13 BUN 16 mg/dL (7-17) 02/28/21 06:13 Creatinine 0.7 mg/dL (0.6-1.2) 02/28/21 06:13 Creatinine 0.7 mg/dL (0.6-1.2) 02/28/21 06:13 Estimated GFR > 60 ml/min 02/28/21 06:13 Estimated GFR > 60 ml/min 02/28/21 06:13 BUN/Creatinine Ratio 23 % 02/28/21 06:13 Glucose 166 mg/dL (65-100) H 02/28/21 06:13 POC Glucose 172 mg/dL (70-105) H 03/05/21 11:47 Calcium 9.3 mg/dL (8.4-10.2) 02/28/21 06:13 Phosphorus 3.30 mg/dL (2.5-4.5) 02/22/21 06:50 Magnesium 1.80 mg/dL (1.7-2.3) 02/22/21 06:50 Ferritin 915.5 ng/mL (10.0-200.0) H 02/20/21 06:39 Total Bilirubin 0.30 mg/dL (0.1-1.2) 02/20/21 06:39 AST 36 units/L (5-40) 02/20/21 06:39 ALT 27 units/L (7-56) 02/20/21 06:39 Alkaline Phosphatase 74 units/L (35-129) 02/20/21 06:39 Lactate Dehydrogenase 645 units/L (91-180) H 02/20/21 06:39 Troponin T 0.992 ng/mL (0.00-0.029) H* 02/15/21 03:55 C-Reactive Protein 3.60 mg/dL (0.00-1.30) H 02/20/21 06:39 NT-Pro-B Natriuret Pep 4086 pg/mL (0-900) H 02/15/21 08:38 Total Protein 7.0 g/dL (6.3-8.2) 02/20/21 06:39 Albumin 3.1 g/dL (3.9-5) L 02/20/21 06:39 Albumin/Globulin Ratio 0.8 % 02/20/21 06:39 Triglycerides 292 mg/dL (2-149) H 02/14/21 20:21 Cholesterol 199 mg/dL (50-199) 02/14/21 20:21 LDL Cholesterol Direct 105 mg/dL (50-130) 02/14/21 20:21 HDL Cholesterol 23 mg/dL (40-59) L 02/14/21 20:21 Cholesterol/HDL Ratio 8.65 % 02/14/21 20:21 Procalcitonin 0.59 ng/mL (<0.15) 02/15/21 18:20 Coronavirus (PCR) Positive (Negative) A 02/16/21 Unknown Blood Type A POSITIVE 02/14/21 20: Antibody Screen Negative 02/14/21 20:21 Taylor/IV: Voiding Method External Female Catheter Active Medications - Current Medications Current Medications: Generic Name Dose Route Start Last Admin Trade Name Freq PRN Reason Stop Dose Admin Acetaminophen 650 mg 02/16/21 01:00 02/16/21 02:09 Acetaminophen 650 Mg Rect Supp DE 650 mg Q6H PRN Administration Pain, Mild (1-3) Hydrocodone Bitart/Acetaminophen 1 each 02/14/21 21:57 03/05/21 09:48 Hydrocodone/Acetaminophen 5-325 Mg Tab PO 1 each Q6H PRN Administration Pain, Moderate (4-6) Albuterol 2.5 mg 02/14/21 21:54 Albuterol 2.5 Mg/3 Ml Nebu IH Q4HRT PRN Shortness Of Breath Amlodipine Besylate 5 mg 03/02/21 13:00 03/05/21 09:45 Amlodipine 5 Mg Tab PO 5 mg QDAY KARYN Administration Lipase/Protease/Amylase 1 each 02/17/21 12:34 Lipase 10,500/Protease 25,000/Amylase 43,750 (Units) Dr Betts FEEDTUBE PRN PRN For Clogged Feeding Tube Apixaban 2.5 mg 02/22/21 22:00 03/05/21 09:45 Apixaban 2.5 Mg Tab PO 2.5 mg Q12HR KARYN Administration Protocol Aspirin 81 mg 02/16/21 12:00 03/05/21 09:45 Aspirin 81 Mg Tab Chew PO 81 mg QDAY KARYN Administration Atorvastatin Calcium 80 mg 02/15/21 22:00 03/04/21 22:09 Atorvastatin 40 Mg Tab PO 80 mg QHS KARYN Administration Clopidogrel Bisulfate 75 mg 02/15/21 10:00 03/05/21 09:45 Clopidogrel 75 Mg Tab PO 75 mg QDAY KARYN Administration Dextrose 0 ml 02/14/21 21:54 Dextrose 50% In Water (25gm) 50 Ml Syringe IV Q30MIN PRN Hypoglycemia Protocol Docusate Sodium 100 mg 02/14/21 22:04 03/04/21 08:26 Docusate Sodium 100 Mg Cap PO 100 mg DAILY PRN Administration Constip unreliev by MOM/or NPO Famotidine 20 mg 02/21/21 10:00 03/05/21 09:45 Famotidine 20 Mg Tab PO 20 mg BID KARYN Administration Ferrous Sulfate 300 mg 02/21/21 22:00 03/05/21 09:45 Ferrous Sulfate 300 Mg (60mg Elemental Iron) / 5 Ml Oral Liqd FEEDTUBE 300 mg BID KARYN Administration Guaifenesin 200 mg 02/26/21 22:54 03/04/21 18:27 Guaifenesin 100 Mg/5 Ml Oral Liqd PO 200 mg Q4H PRN Administration Cough Hydromorphone HCl 0.5 mg 02/14/21 21:54 02/28/21 20:15 Hydromorphone 1 Mg/1 Ml Inj IV 0.5 mg Q3H PRN Administration Pain , Severe (7-10) Hydrophilic Ointment 1 applic 02/20/21 09:00 Lip Therapy Vaseline TP DIRECT PRN Dry Lips Insulin Glargine 15 units 03/02/21 12:24 03/04/21 22:08 Insulin Glargine 100 Units/Ml SUB-Q 15 units QHS KARYN Administration Insulin Human Lispro 0 unit 02/17/21 22:00 03/05/21 09:46 Insulin Lispro 100 Unit/Ml SUB-Q 3 unit ACHS KARYN Administration Protocol Metoprolol Tartrate 50 mg 02/19/21 22:00 03/05/21 09:45 Metoprolol Tartrate 50 Mg Tab PO 50 mg BID KARYN Administration Morphine Sulfate 2 mg 02/14/21 21:54 02/26/21 03:48 Morphine 2 Mg/1 Ml Inj IV 2 mg Q4H PRN Administration Pain, Moderate (4-6) Ondansetron HCl 4 mg 02/14/21 21:54 02/28/21 20:14 Ondansetron 4 Mg/2 Ml Inj IV 4 mg Q8H PRN Administration Nausea And Vomiting Polyethylene Glycol 17 gm 03/02/21 13:00 03/05/21 09:46 Polyethylene Glycol 3350 17 Gm Powder PO 17 gm QDAY KARYN Administration Simple Syrup 15 ml 02/17/21 12:34 Simple Syrup 15 Ml FEEDTUBE PRN PRN Hypoglycemia Simple Syrup 30 ml 02/17/21 12:34 Simple Syrup 15 Ml FEEDTUBE PRN PRN Hypoglycemia Sodium Bicarbonate 325 mg 02/17/21 12:34 Sodium Bicarbonate 325 Mg Tab FEEDTUBE PRN PRN For Clogged Feeding Tube Sodium Chloride 10 ml 02/14/21 22:00 03/05/21 11:04 Sodium Chloride 0.9% 10 Ml Flush Syringe IV 10 ml BID KARYN Administration Sodium Chloride 10 ml 02/14/21 21:54 Sodium Chloride 0.9% 10 Ml Flush Syringe IV PRN PRN LINE FLUSH Zolpidem Tartrate 5 mg 03/04/21 18:35 03/04/21 22:08 Zolpidem 5 Mg Tab PO 5 mg QHS PRN Administration Sleep Nutrition/Malnutrition Assess - Dietary Evaluation Nutrition/Malnutrition Findings: Nutrition Notes Start: 02/15/21 12:03 Freq: Status: Active Protocol: Document 02/27/21 18:14 GB (Rec: 02/27/21 18:22 GB [id number]) Nutrition Notes Initial or Follow up Reassessment Current Diagnosis Diabetes,Hypertension, Respiratory Failure,Stroke Other Pertinent Diagnosis hyperglycemia, STEMI Current Diet Pureed w/dietary supplements BID Labs/Tests 02/25: BUN 18 Pertinent Medications ferrous sulfate, NaCl/Hep, NaCl, remdesivir Height 5 ft 4 in Weight 91.6 kg [place] Body Weight (kg) 54.54 BMI 34.7 Weight change and time frame 02/14: 104.3 kg 02/26: 91.6 kg change of -12.7kg for -12% loss r/t Respiratory failure complications Weight Status Obese Subjective/Other Information Diet texture Pureed. Per chart: po intake of meals average 50-100%. Adding glucerna BID for additional calories/protein while po intake recovers. Percent of energy/protein needs met: PO intake of meals and supplement 50% or greater will meet 75% or greater of estimated energy needs. Burn Absent Trauma Absent GI Symptoms None Difficulty In Swallowing Food Allergy No Current % PO Good (75-100%) Minimum of two criteria No #2 Nutrition Diagnosis Inadequate energy intake Comments: 02/27: Diet texture Pureed, supplement beverages BID, PO intake 50-100% Etiology DM, collapse As Evidenced by Signs and Symptoms Recent advancement to PO intake with mechanically altered texture diet, NG d/c , need for nutritional supplement beverage to meet estimated energy needs. Diagnosis Progress(for reassessment Resolved documentation) #1 Nutrition Diagnosis Other: (Specify in comment below) Comments: Comprimised PO intake, dependency for enteral feed to meet nutrition needs Etiology DM, collapse, As Evidenced by Signs and Symptoms not able to eat PO at this time, MD order for TF Diagnosis Progress(for reassessment Resolved documentation) Is patient on ventilator? No Is Patient Ambulatory and/or Out of Bed Yes REE-([place]-ambulatory/OOB) [ 1938.300 [id number]] Kcal/Kg value to use for calculation 17 Approximate Energy Requirements Using 1557 kcal/Kg Calculation Used for Recommendations Kcal/kg Additional Notes Protein: 0.7-1 g/kg @ 104k-104g Fluids: 1 ml/kcal or per MD Nutrition Intervention Change Diet Order: Continue with current diet advancing texture per [employer] Nutrition Support: n/a Add Supplement/Snack (indicate name/kcal glucerna BID /protein ) Provides kCal: 440 Provides Protein (gm) 20 Goal #1 PO intake of meals to improve to 50% or greater during LOS 02/27: met, continues Goal #2 weight to maintain within -3% current weight for LOS 02/27: weight loss of -12% r/t respiratory failure (covid) complications Goal #3 PO intake of nutritional supplement beverage to be 50% or greater BID daily during LOS Follow-Up By: 03/06/21 Additional Comments f/u: po intake, weight
[2021-03-05] MEDS: MORPHINE 2 MG/1 ML INJ IV PRN (12:57)
[2021-03-05] MEDS: INSULIN GLARGINE 100 UNITS/ML SUB-Q SCH (22:00)
[2021-03-05] MEDS: ZOLPIDEM 5 MG TAB PO PRN (22:06)
[2021-03-06] MEDS: INSULIN LISPRO 100 UNIT/ML SUB-Q SCH ×3 (08:40→18:46)
--- NOTE | 2021-03-06 11:19 | Discharge Summary ---
Providers - Providers Date of Admission: 02/14/21 21:06 Date of discharge: 03/06/21 Attending physician: GINNA SCHULER 02/14/21 Consult to Cardiac Rehabilitation [CONS] Routine Reason For Exam: Phase 1 Consult to Cardiac Rehabilitation [CONS] Routine Reason For Exam: post pci 02/14/21 21:54 Consult to Dietitian/Nutrition [CONS] Routine Physician Instructions: Reason For Exam: Reason for Consult: Diet education Consult to Physician [CONS] Routine Comment: Consulting Provider: SUNNY ALFORD Physician Instructions: Reason For Exam: cva Occupational Therapy Evaluate and Treat [CONS] Routine Comment: Reason For Exam: Neuro deficits Physical Therapy Evaluation and Treat [CONS] Routine Comment: Reason For Exam: Neuro deficits 02/14/21 22:04 Consult to Physician [CONS] Routine Comment: Consulting Provider: TRICIA ASCENCIO Physician Instructions: Reason For Exam: stemi 02/14/21 22:24 Consult to Physician [CONS] Routine Comment: Consulting Provider: MAEGAN STAHL Physician Instructions: Reason For Exam: covid 02/17/21 10:28 Consult to Dietitian/Nutrition [CONS] Routine Physician Instructions: Reason For Exam: Reason for Consult: Write/Manage Tube Feeding Speech Therapy Evaluation and Treat [CONS] Routine Reason For Exam: CVA, dysphagia 02/20/21 09:57 Speech Therapy Evaluation and Treat [CONS] Routine Reason For Exam: possible change diet 02/23/21 10:35 Speech Therapy Evaluation and Treat [CONS] Routine Reason For Exam: swallowing evaluation Primary care physician: STATISTICAL CLERK Hospitalization Condition: Stable Hospital course: Patient is 55 years old female with history of diabetes was brought to the emergency room by EMS as both a code stroke and code STEMI. History is somewhat complicated. She had been last seen by family normal at 10 PM . Reportedly, they got up and went to work in the morning. They allegedly checked on her and she was fine. She was not out of bed however. When they came home, she was found to have a left-sided weakness and dysarthria. She had left facial droop. This was allegedly at 11 AM. EMS got called to transport the patient here. During transport, they found her to have STEMI on EKG. She was not having any chest pain.Upon arrival, she does state that she has had a cough and congestion and has had "the flu" for 2 weeks. She did not get coronavirus testing done. She has had no known exposure to Covid . In the emergency room patient is found to have code STEMI subsequently patient was brought to the Analytics Manager and patient is a status post heart cath with stent placement in the RCA. In the emergency room patient also seen and evaluated by tele neurology. Patient is out of window of TPA. She was admitted to ICU . Covid-19 serology came back positive. She was evaluated by ID Specoialist, Pulmonology and Cardiology. She had a prolonged course as detailed below. She improved slowly and was subsequently discharged home on 03/06/21. 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 Ventricle Thrombus Acute hypoxic respiratory secondary to COVID COVID-19 Pneumonia Dysphagia Acute kidney injury Sepsis 2/2 bilateral PNA, COVID PNA Anemia Hyperglycemia Hospital Course to date: 02/16/21- Patient AAOX4, with slurred speech and Lt. sided weakness. MRI/MRA brain pending. Remains on continuous Bipap, failed optiflow trial overnight. Bilateral infiltrate noted on today CXR additional lasix was adminstered to optimize Respiratory status, However was D/C due to marginal BP concern for Hypoperfusion. Will reassess in the Am. Plan to wean off Bipap as tolerated. Patient has been NPO due to continuous Bipap. When patient is off bipap nurse to complete bedside swallow screen, if fail will place NGT so pateint can received PO meds. Low grade temp today, TMAX 101.2 in last 24hrs, Bcult pending, on IV abx, ceftriaxone and azithromycin. COVID swab result pending, ID on the case rec to start dexamethasone 6 mg IV/p.o. daily for 10 days. 02/17/21- COVID PCR can back possible, patient was already on Rocephin and azithromaci, added Remdesevir per protocol, and IV decadron was initiated. Patient was wean to heated high flow, currently on 70% FiO2 and 40L. Wean O2 supplement as tolerated for a SPO2b goal above 88%. Persistent hyperglycemia, lantus increased to 10 units. Speech eval completed, patient pass swallow, order placed for pureed diet with thin liquid. Will continue to monitor, Heparing gtt per protocol, Am labs ordered. 02/18/21-blood sugars this morning over 300. Ordered 10 units of IV insulin once. Added 5 units scheduled insulin in addition to sliding scale insulin. Diet change to diabetic diet. 02/19/21: Transfer to floor. NG tube d/c. 02/20/21: Will get speech therapy to re-evaluate patient to see if patient can be escalated from pureed diet. Cardiology recommendations noted, BB is increased. Continue supportive management for covid 19 pneumonia. HFNC currently at 35 l/min/fio2=60%. Ok with sats > 88%. Attempted to call Durga but voicemail was to another person in chart. Will attempt to find another number to update . 02/21/2021. Patient currently with 35 L of oxygen with an FiO2 of 70%. Continue statin therapy, beta blockers, and DAPT with plavix and aspirin per cardiology recommendation. Continue intravenous heparin, ultimately will be transitioned to long-term warfarin therapy or a NOAC. 02/22/2021. Patient's oxygen requirement has been decreased to 30 L/min via HFNC with FiO2 50%. Continue per ID and pulmonary recommendations. Patient received Actemra 02/17/2021. Complete remdesivir x5 days. Complete dexamethasone IV for 10 days. Cardiology also recommends continued statin therapy, beta-blockers and DAPT with Plavix and aspirin. Continue IV heparin and transition to long-term warfarin or NOAC per cardiology 02/23/2021. Chest x-ray from yesterday is unchanged. Patient currently on high flow nasal cannula 30 L/min with FiO2 35%. Continue per ID and pulmonary recommendations. Patient received Actemra 02/17/2021. Complete remdesivir x5 days. Complete dexamethasone IV for 10 days. Cardiology also recommends continued statin therapy, beta-blockers and DAPT with Plavix and aspirin. Continue IV heparin and transition to long-term warfarin or NOAC per cardiology 02/24/2021. Patient remains on high flow nasal cannula 30 L O2 with FiO2 35%. Patient will complete dexamethasone on 02/26/2021. Patient is s/p remdesivir and Actemra. Continue prone positioning as able. Continue statin therapy, beta- blockers and DAPT with Plavix and aspirin. Continue IV heparin and transition to long-term warfarin or NOAC per cardiology 02/25/2021. Patient on high flow nasal cannula with 15 L and FiO2 of 30%. Continue dexamethasone until tomorrow. Patient is s/p remdesivir and Actemra. Continue prone positioning as able. Continue statin therapy, beta-blockers and DAPT with Plavix and aspirin. Continue IV heparin and transition to long-term warfarin or NOAC per cardiology 02/26/2021. Patient on high flow nasal cannula with 15 L and FiO2 of 30%. Continue dexamethasone for total of 14 days per pulmonary recommendations. Patient is s/p remdesivir and Actemra. Continue prone positioning as able. Continue statin therapy, beta-blockers and DAPT with Plavix and aspirin. Continue IV heparin and transition to long-term warfarin or NOAC per cardiology 02/27/2021. Patient on high flow nasal cannula with 15 L and FiO2 of 25%. Continue dexamethasone for total of 14 days per pulmonary recommendations. Resume dexamethasone 10 mg IV daily for 4 more days. Patient is s/p remdesivir and Actemra. Continue prone positioning as able. Continue statin therapy, beta-blockers and DAPT with Plavix and aspirin. Cardiology initiated anticoagulation with Eliquis. 02/28/21 Patient with Covid-19 She is on Oxygen at 11 l/min, down from 15 l/min yesterday. 03/01/21 Patient with Covid-19 with acute respiratory failure. She is on Oxygen at 4 l/min, down from 11 l/min yesterday. She has been on high flow oxygen previously. Hopefully dc home in few days. To check ambulatory pulse ox prior to discharge. 03/02/21 acute hypoxic respiratory failure COVID-19 pneumonia has improved. She is down to 2 L oxygen by nasal cannula. Blood glucose is uncontrolled. Will increase lantus to 15 units sc qhs. Continue dexamethasone for COVID-19. BP is uncontrolled and will start Norvasc 5 mg p.o. daily. Continue current dose of beta-silas. Continue ASA, plavix and eliquis. Had initial elevated d-dimer, will recheck d-dimer. Complains of constipation and will start daily MiraLAX, continue as needed Colace 03/03/2021. Patient's blood glucose has improved today. She has completed dexamethasone and insulin dose may need to be decreased. HbA1c ordered since admission is pending and has been reordered today. Possible new diagnosis of diabetes mellitus type 2. Blood pressure is acceptable. Still on 2 L oxygen by nasal cannula, may need to be discharged with home oxygen. Possible discharge home tomorrow. 03/04/2021 Patient with Covid-19 with acute resp failure. Hyperglycemia. A1C ordered. To go home after hospital bed, Oxygen arranged. Discontinue Humulin R 7 Units QAC and HS since off steroids and blood glucose low normal. 03/05/21 Patient with Covid-19 with acute resp failure. Hyperglycemia. A1C ordered, not done yet. Hospital bed not yet delivered/ Likely dc home tomorrow. 03/06/21 Patient stable to discharge home. Disposition: 06 HOME HEALTH CARE SERVICE Final Discharge Diagnosis (Prints w/discharge instructions): 1.Covid-19 pneumonia. 2.Acute respiratory Failure. 3.Acute myocardial infarction. 4.Stroke. 5.Diabetes Time spent for discharge: 52 mins - Discharge Diagnoses (1) COVID-19 Status: Acute (2) Acute respiratory failure Status: Acute (3) STEMI (ST elevation myocardial infarction) Status: Acute (4) Diabetes Status: Acute (5) Hypertension Status: Chronic Qualifiers: Hypertension type: essential hypertension (6) Stroke Status: Acute Core Measure Documentation - Palliative Care Palliative Care/ Comfort Measures: Not Applicable - Core Measures Any of the following diagnoses?: acute RI, stroke - Acute RI Discharge Requirements Aspirin at discharge: Yes ANITA/ARB for LVSD if EF <40%: Not Applicable Beta silas at discharge: Yes Statin for LDL = or >100 mg/dl on DC: Yes - Stroke Discharge Requirements Statin for LDL = or >70 mg/dl on DC: Yes Anticoag for atrial fib/atrial flutter: Yes Antithrombotic for ischemic stroke: Yes Exam - Constitutional Vitals: Temp Pulse Resp BP Pulse Ox 98.8 F 87 28 H 101/66 100 03/06/21 10:41 03/06/21 10:41 03/06/21 10:41 03/06/21 10:41 03/06/21 10:41 Plan Activity: advance as tolerated Diet: low fat, low cholesterol, low salt, diabetic Special Instructions: home oxygen via (2 l/min) Durable Medical Equipment Needed Upon Discharge: Oxygen (2 l/min), Hospital Bed Plan of Treatment: 1.Follow up with PCP in 1 week. 2.Follow up with Dr. Barajas, Cardiology in 1 week Follow up with: PRIMARY CAREMD [Primary Care Provider] - 7 Days Prescriptions: amLODIPine 5 mg PO QDAY #30 tablet Aspirin [Aspirin BABY CHEW TAB] 81 mg PO QDAY #30 tab.chew Apixaban [Eliquis] 2.5 mg PO Q12HR #60 tablet Insulin Glargine [Lantus VIAL] 15 units SUB-Q QHS #1 vial AtorvaSTATin [Lipitor] 80 mg PO QHS #30 tablet Metoprolol [Lopressor TAB] 50 mg PO BID #60 tablet Clopidogrel [Plavix] 75 mg PO QDAY #30 tablet Pantoprazole [Protonix] 40 mg PO QDAY #30 tablet
--- NOTE | 2021-03-06 11:21 | Progress Note ---
Assessment and Plan - Patient Problems (1) STEMI (ST elevation myocardial infarction) Current Visit: Yes Status: Acute Plan to address problem: Status post coronary stent to the distal right coronary artery for acute right coronary embolic occlusion in the setting of acute Covid viral pneumonia. Okay for cardiac discharge, continue triple therapy with baby aspirin, Plavix, Eliquis in addition to other guideline directed post VT medical therapy, outpatient cardiac follow-up in 10-14 days. (2) Venous thromboembolism Current Visit: Yes Status: Acute Plan to address problem: Patient also has evidence of venous thromboembolism with thrombus in transition in the right ventricle. Continue triple therapy as directed. Subjective Date of service: 03/06/21 Principal diagnosis: Covid-19 Interval history: The patient is comfortable, no cardiac complaints, on youth nutritional monitor she is stable sinus rhythm at 90. Objective Vital Signs Temp Pulse Resp BP BP Pulse Ox 03/06/21 10:41 98.8 F 87 28 H 101/66 100 03/06/21 09:33 98 03/06/21 04:58 98.0 F 89 18 113/71 98 03/06/21 04:40 98.0 F 91 H 18 124/79 97 03/05/21 22:00 93 H 104/83 98 03/05/21 21:51 99.3 F 93 H 18 104/83 98 03/05/21 21:35 98.5 F 77 18 117/81 95 03/05/21 17:00 98.6 F 65 19 105/68 03/05/21 16:09 85 98 03/05/21 16:04 64 98 03/05/21 12:31 83 98 03/05/21 11:47 98.2 F 61 18 113/64 99 - Physical Examination Narrative exam: Full physical exam is deferred due to acute Covid pneumonia. General: No Apparent Distress Neck: Negative: JVD/HJR Neuro: Positive: Other (Left hemiparesis) Abdomen: Positive: Unremarkable Extremities: Absent: edema - Imaging and Cardiology Echo: other (02/14/2021 Echo - Normal LV and RV systolic function, thrombus in RV)
[2021-03-06] MEDS: FERROUS SULFATE 300 MG (60MG Elemental Iron) / 5 mL ORAL LIQD FEEDTUBE SCH (11:26)
[2021-03-06] MEDS: ASPIRIN 81 MG TAB CHEW PO SCH (11:27)
[2021-03-06] MEDS: POLYETHYLENE GLYCOL 3350 17 GM POWDER PO SCH (11:27)
[2021-03-06] MEDS: amLODIPine 5 MG TAB PO SCH (11:28)
[2021-03-06] MEDS: APIXABAN 2.5 MG TAB PO SCH ×2 (11:28→22:08)
[2021-03-06] MEDS: METOPROLOL TARTRATE 50 MG TAB PO SCH (11:29)
[2021-03-06] MEDS: FAMOTIDINE 20 MG TAB PO SCH ×2 (11:29→22:09)
[2021-03-06] MEDS: CLOPIDOGREL 75 MG TAB PO SCH (11:30)
[2021-03-06] MEDS: INSULIN GLARGINE 100 UNITS/ML SUB-Q SCH (22:08)
[2021-03-06 23:16] VITALS: BP 115/72
== END 2021-03-07 00:50 | disposition home health service (06) | DRG 853 ==
LOC: ED 20:16 → CC1 21:06 → 3A 02-19 23:10
PROVIDERS: ADMIT Hospitalist; ATTEND Internal Medicine
PROC: 027034Z Dilation of Coronary Artery, One Artery with Drug-eluting Intraluminal Device, Percutaneous Approach (ICD-10-PCS; 2021-02-14)
PROC: 4A023N7 Measurement of Cardiac Sampling and Pressure, Left Heart, Percutaneous Approach (ICD-10-PCS; 2021-02-14)
PROC: B2151ZZ Fluoroscopy of Left Heart using Low Osmolar Contrast (ICD-10-PCS; 2021-02-14)
PROC: B2111ZZ Fluoroscopy of Multiple Coronary Arteries using Low Osmolar Contrast (ICD-10-PCS; 2021-02-14)
PROC: 5A09457 Assistance with Respiratory Ventilation, 24-96 Consecutive Hours, Continuous Positive Airway Pressure (ICD-10-PCS; principal; 2021-02-15)
PROC: XW033E5 Introduction of Remdesivir Anti-infective into Peripheral Vein, Percutaneous Approach, New Technology Group 5 (ICD-10-PCS; 2021-02-17)
PROC: XW033H5 Introduction of Tocilizumab into Peripheral Vein, Percutaneous Approach, New Technology Group 5 (ICD-10-PCS; 2021-02-17)
PROC: 5A0955A Assistance with Respiratory Ventilation, Greater than 96 Consecutive Hours, High Flow/Velocity Cannula (ICD-10-PCS; 2021-02-17)
PROC: 5A09357 Assistance with Respiratory Ventilation, Less than 24 Consecutive Hours, Continuous Positive Airway Pressure (ICD-10-PCS; 2021-02-25)
DX: A41.89 Other specified sepsis (principal); U07.1 COVID-19; I21.09 ST elevation (STEMI) myocardial infarction involving other coronary artery of anterior wall; I63.9 Cerebral infarction, unspecified; J12.82 Pneumonia due to coronavirus disease 2019; J96.01 Acute respiratory failure with hypoxia; N17.9 Acute kidney failure, unspecified; G81.94 Hemiplegia, unspecified affecting left nondominant side; E66.01 Morbid (severe) obesity due to excess calories; Z68.39 Body mass index [BMI] 39.0-39.9, adult; D64.9 Anemia, unspecified; I10 Essential (primary) hypertension; R13.10 Dysphagia, unspecified; Z87.891 Personal history of nicotine dependence; E11.65 Type 2 diabetes mellitus with hyperglycemia; Z82.49 Family history of ischemic heart disease and other diseases of the circulatory system; J06.9 Acute upper respiratory infection, unspecified
CPT/HCPCS: 36415; 70450; 70496; 70498; 70544; 70551; 71045; 74018; 80048; 80053; 80061; 82565; 82728; 82962; 83036; 83615; 83735; 83880; 84100; 84145; 84484; 85007; 85014; 85018; 85025; 85027; 85049; 85379; 85520; 85610; 85670; 85730; 86140; 86850; 86900; 86901; 87040; 87086; 92941; 93005; 93306; 93458; 94640; 94660; 94760; G0378; C1725; C1757; C1769; C1874; C1887; C1894; C9606; J0456; J0696; J1100; J1170; J1644; J1815; J1940; J2250; J2270; J2405; J3010; J3262; J7030; J7050; Q9967; U0003